=== PATIENT | male | born 1945 | race Caucasian/White ===

== ENCOUNTER 2016-12-28 11:35 | Inpatient (IN) | payer OTHER, MEDICARE ==
[~2016-12-28] VITALS: Ht 167.6 cm; Wt 104.0 kg
[2016-12-28] VITALS (11 sets, daily range): BP systolic 95–132; BP diastolic 10–64; PULSE 75–102; RESP 10–20; TEMP 98.9–99.8; O2SAT 91–100
[~2016-12-28 11:35] MED LIST: ALLO100T PO; ATOR40TA PO; BUME1TAB PO; CARV6.25 PO; DIOV320T PO; K-TA10TA5 PO; LACTATED RINGER'S 1000 ML INJ 2,000 ML IV ONE; MINO10 PO; NOVO7030P2 SQ; ONDANSETRON HCL 4 MG/2 ML VIAL IV PUSH ONE; PHENYLEPH/NS 1000 MCG/10 ML SYR IV ONE; PROPOFOL 200 MG/20 ML AMP IV ONE; RANI150 PO; VITA100020 IM; ePHEDrine/NS 25 MG/5 ML SYR IV ONE
[2016-12-28] MEDS ORDERED: CARV25TA PO (12:17)
[2016-12-28] MEDS ORDERED: VALS1TAB70 PO (12:17)
[2016-12-28] MEDS ORDERED: OMEP20TA PO (12:17)
[2016-12-28] MEDS ORDERED: FURO40TA PO (12:17)
[2016-12-28] MEDS ORDERED: ALBI1INJ2 SQ (12:17)
[2016-12-28] MEDS ORDERED: CYAN1000P IM (12:17)
[2016-12-28] MEDS ORDERED: ALLO100T PO (12:17)
[2016-12-28] MEDS ORDERED: ATOR40TA16 PO (12:17)
[2016-12-28] MEDS ORDERED: SPIR25TA PO (12:17)
[2016-12-28] MEDS ORDERED: SODIUM CHLOR 0.9% 1000 ML INJ 1,000 ML IV SCH (12:37)
[2016-12-28] MEDS ORDERED: SODIUM CHLORIDE 0.9% FLUSH 10 ML FLUSH IV FLUSH PRN (12:45)
[2016-12-28 12:57] LABS: AUTOMATED NEUTROPHIL # 15.1 TH/MM3 (1.8-7.7); HEMATOCRIT 35.4 % (39.0-51.0); HEMO FLAGS DIFF FINAL; LYMPH % 5.1 % (9.0-44.0); LYMPHOCYTE # 0.9 TH/MM3 (1.0-4.8); MEAN CELL VOLUME 85.6 FL (80.0-100.0); MEAN CORPUSCULAR HEMOGLOBIN 28.1 PG (27.0-34.0); MEAN CORPUSCULAR HGB CONC 32.9 % (32.0-36.0); MONO % 6.9 % (0.0-8.0); PLATELET COUNT 133 TH/MM3 (150-450); RED BLOOD COUNT 4.14 MIL/MM3 (4.50-5.90); RED CELL DISTRIBUTION WIDTH 17.2 % (11.6-17.2); WHITE BLOOD COUNT 17.2 TH/MM3 (4.0-11.0)
[2016-12-28] MEDS ORDERED: AMPICILLIN-SULBACTAM INJ 3 GM in SODIUM CHLORIDE 0.9% INJ 100 ML IV ONE (13:00)
[2016-12-28] MEDS: SODIUM CHLOR 0.9% 1000 ML INJ 1,000 ML IV ONE ×2 (13:00→15:37)
[2016-12-28] MEDS ORDERED: CLINDAMYCIN PHOS 900 MG/6 ML VIAL IM ONE (13:00)
[2016-12-28 13:03] LABS: APTT (PATIENT) 30.1 SEC (24.3-30.1); INTERNATIONAL NORMALIZED RATIO 1.1 RATIO; PROTHROMBIN TIME - PATIENT 11.9 SEC (9.8-11.6)
[2016-12-28 13:26] LABS: ANION GAP 11 MEQ/L (5-15); AST (GOT) 27 U/L (15-37); BICARBONATE 29.6 MEQ/L (21.0-32.0); BLOOD UREA NITROGEN 56 MG/DL (7-18); CHLORIDE 95 MEQ/L (98-107); GLOMERULAR FILTRATION RATE 17 ML/MIN (>89); POTASSIUM 3.9 MEQ/L (3.5-5.1); SODIUM (NA) 136 MEQ/L (136-145)
[2016-12-28 13:29] LABS: ALKALINE PHOSPHATASE 132 U/L (45-117); ALT (GPT) 20 U/L (12-78); TOTAL BILIRUBIN ADULT 0.8 MG/DL (0.2-1.0)
[2016-12-28 13:43] LABS: BACTERIA, URINE RARE /hpf; BLOOD, URINE TRACE (NEG); COMMENT (UR) CULTURE INDICATED; CULTURE IF INDICATED CULTURE INDICATED; GLUCOSE,URINE NEG (NEG); HYALINE CAST, URINE 165 /lpf (RARE); KETONE, URINE NEG (NEG); MUCUS URINE FEW /lpf (OCC); NITRITE,URINE NEG (NEG); SQUAMOUS EPITHELIAL CELL URINE 9 /hpf (0-5); URINE COLOR DARK-YELLOW (YELLW/STRAW)
[2016-12-28] MEDS ORDERED: SODIUM CHLOR 0.9% 1000 ML INJ 1,000 ML IV ONE (14:30)
--- NOTE | 2016-12-28 15:04 | RADRPT ---
EXAM DATE/TIME: 12/28/2016 14:05 [facility] COMPARISON: No previous studies available for comparison. INDICATIONS : Swelling and pain in bilateral testicles. MEDICAL HISTORY : Congestive heart failure. Hypercholesterolemia. Neuropathy. Myocardial infarction. Coronary artery di sease. Hypertension. BPH. Gout. SURGICAL HISTORY : CABG Pacemaker.Coronary stent. ENCOUNTER: Initial ACUITY: 1 day PAIN SCORE: 5/10 LOCATION: Bilateral testicles. MEASUREMENTS: RIGHT TESTICLE: 3.8 x 3.4 x 3.6cm LEFT TESTICLE: 3.9 x 3.1 x 2.8cm FINDINGS: There is extensive edema of the scrotal wall, thickened up to 1.8 cm on the right and 2.4 cm on the l eft. There are 2 complex small cystic lesions in the right testicle each measuring about 5 mm in maximal d iameter. No solid mass identified. Positive testicular blood flow bilaterally. No left-sided testicul ar lesions. Epididymis is mildly enlarged bilaterally. Small complex left hydrocele. CONCLUSION: 1. Marked thickening of the scrotal wall, up to 2.4 cm on the right. 2. Small complex left hydrocele. 3. Small complex cysts right testicle. Positive testicular blood flow. Nael Scott MD on December 28, 2016 at 15:00 Board Certified Radiologist. This report was verified electronically.
--- NOTE | 2016-12-28 15:12 | PD ---
HPI Chief Complaint: Allergic/Adverse Reaction Time Seen by Provider: 12:22 Travel History International Travel<30 days: No Contact w/Intl Traveler<30days: No Traveled to known affect area: No History of Present Illness HPI Patient 71-year-old male presents emergency department for evaluation of testicle swelling. Patient states approximately 10 days ago he started on new medicine for his blood pressure which she states is Aldactone. Patient states she's also noted his blood sugar has been minimally more elevated. States usually runs between 130 and 140 and has been running in the 190s. Denies any fevers. States his been feeling generally weak as well. Denies abdominal pain nausea vomiting or diarrhea. He thought the scrotal swelling was from the Aldactone and came into the emergency department to be evaluated. PFSH Past Medical History Depression: Yes Cardiac Catheterization: Yes Cardiovascular Problems: Yes High Cholesterol: Yes Congestive Heart Failure: Yes Coronary Artery Disease: Yes Diabetes: Yes Patient Takes Glucophage: No Endocrine: Yes Gout: Yes Genitourinary: Yes (BPH) Hypertension: Yes Immune Disorder: No Musculoskeletal: No Neurologic: Yes (NEUROPATHY) Psychiatric: Yes (PTSD) Reproductive: No Respiratory: Yes Myocardial Infarction: Yes Influenza Vaccination: No Past Surgical History Cardiac Surgery: Yes (Cabg 13yrs ago) Coronary Artery Bypass Graft: Yes (QUAD) Coronary Stent: Yes Ear Surgery: No Endocrine Surgery: No Eye Surgery: No Genitourinary Surgery: No Gynecologic Surgery: No Oral Surgery: No Pacemaker: Yes Thoracic Surgery: No Other Surgery: Yes (pacemaker/ defib) Social History Alcohol Use: No Tobacco Use: Yes (12/07 PPD) Substance Use: No Allergies-Medications (Allergen,Severity, Reaction): Coded Allergies: No Known Allergies (Verified , 12/28/16) Reported Meds & Prescriptions Reported Meds & Active Scripts Active Reported Valsartan 320 Mg Tab 320 Mg PO DAILY Omeprazole 20 Mg Tab 20 Mg PO DAILY Furosemide 40 Mg Tab 60 Mg PO BID Cyanocobalamin Inj (Cyanocobalamin) 1,000 Mcg/Ml Inj 1,000 Mcg IM Q30D Carvedilol 25 Mg Tab 50 Mg PO BID Atorvastatin (Atorvastatin Calcium) 40 Mg Tab 40 Mg PO HS Allopurinol 100 Mg Tab 200 Mg PO DAILY Tanzeum 4-Pack Inj (Albiglutide) 50 Mg Pfpen 50 Mg SQ Q7D Spironolactone 25 Mg Tab 12.5 Mg PO DAILY Review of Systems Except as stated in HPI: all other systems reviewed are Neg Physical Exam Narrative GENERAL: Well-developed, well-nourished in no apparent distress. Appears nontoxic. SKIN: Warm and dry. HEAD: Atraumatic. Normocephalic. EYES: Pupils equal and round. No scleral icterus. No injection or drainage. ENT: No nasal bleeding or discharge. Mucous membranes pink and moist. NECK: Trachea midline. No JVD. CARDIOVASCULAR: Regular rate and rhythm. No murmur appreciated. RESPIRATORY: No accessory muscle use. Clear to auscultation. Breath sounds equal bilaterally. GASTROINTESTINAL: Abdomen soft, non-tender, nondistended. Hepatic and splenic margins not palpable. GENITOURINARY: Is fairly modest amount of swelling around the scrotum could be consistent with edema. There is some erythema overlying the scrotum and may be consistent with abscess. There is some cellulitis and erythema surrounding the perineum as well as on the right gluteus. Patient does state he has an abscess in this area but no discrete area of fluctuance is felt. No open wounds or sites of drainage seen. 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 MUSCULOSKELETAL: No obvious deformities. No clubbing. No cyanosis. No edema. NEUROLOGICAL: Awake and alert. No obvious cranial nerve deficits. Motor grossly within normal limits. Normal speech. PSYCHIATRIC: Appropriate mood and affect; insight and judgment normal. Data Data Last Documented VS Vital Signs Date Time Temp Pulse Resp B/P Pulse Ox O2 Delivery O2 Flow Rate FiO2 12/28/16 15:52 99 16 125/64 92 Room Air 12/28/16 11:37 99.8 Orders Complete Blood Count With Diff (12/28/16 12:37) Comprehensive Metabolic Panel (12/28/16 12:37) Lipase (12/28/16 12:37) Lactic Acid (12/28/16 12:37) Prothrombin Time / Inr (Pt) (12/28/16 12:37) Act Partial Throm Time (Ptt) (12/28/16 12:37) Urinalysis - C+S If Indicated (12/28/16 12:37) Iv Access Insert/Monitor (12/28/16 12:37) Ecg Monitoring (12/28/16 12:37) Oximetry (12/28/16 12:37) Sodium Chlor 0.9% 1000 Ml Inj (Ns 1000 M (12/28/16 12:37) Sodium Chloride 0.9% Flush (Ns Flush) (12/28/16 12:45) Westergren Sedimentation Rate (12/28/16 12:39) C-Reactive Protein (Crp) (12/28/16 12:39) Blood Culture (12/28/16 12:40) Ampicillin-Sulbactam Inj (Unasyn Inj) (12/28/16 13:00) Clindamycin Inj (Cleocin Inj) (12/28/16 13:00) Sodium Chlor 0.9% 1000 Ml Inj (Ns 1000 M (12/28/16 13:00) Us Testicles W Doppler (12/28/16 12:46) Urine Culture (12/28/16 13:15) Ct Abd/Pel W/O Iv Contrast (12/28/16 12:37) Sodium Chlor 0.9% 1000 Ml Inj (Ns 1000 M (12/28/16 14:30) Consult Urology (12/28/16 ) (Hub Use Only)Inp Phy Cons/Ref (12/28/16 15:40) Clindamycin Inj (Cleocin Inj) (12/28/16 16:00) Electrocardiogram (12/28/16 ) Consult General Surgery (12/28/16 ) ^ Consent (12/28/16 16:27) (Hub Use Only)Inp Phy Cons/Ref (12/28/16 ) Type And Screen (12/28/16 16:40) Admit Order (Ed Use Only) (12/28/16 ) Vancomycin Inj (Vancomycin Inj) (12/28/16 16:45) Labs Laboratory Tests Test 12/28/16 12/28/16 12/28/16 12:40 12:42 13:15 White Blood Count 17.2 TH/MM3 Red Blood Count 4.14 MIL/MM3 Hemoglobin 11.6 GM/DL Hematocrit 35.4 % Mean Corpuscular Volume 85.6 FL Mean Corpuscular Hemoglobin 28.1 PG Mean Corpuscular Hemoglobin 32.9 % Concent Red Cell Distribution Width 17.2 % Platelet Count 133 TH/MM3 Mean Platelet Volume 9.3 FL Neutrophils (%) (Auto) 88.0 % Lymphocytes (%) (Auto) 5.1 % Monocytes (%) (Auto) 6.9 % Eosinophils (%) (Auto) 0.0 % Basophils (%) (Auto) 0.0 % Neutrophils # (Auto) 15.1 TH/MM3 Lymphocytes # (Auto) 0.9 TH/MM3 Monocytes # (Auto) 1.2 TH/MM3 Eosinophils # (Auto) 0.0 TH/MM3 Basophils # (Auto) 0.0 TH/MM3 CBC Comment DIFF FINAL Differential Comment Erythrocyte Sedimentation Rate 67 mm/hr Prothrombin Time 11.9 SEC Prothromb Time International 1.1 RATIO Ratio Activated Partial 30.1 SEC Thromboplast Time Sodium Level 136 MEQ/L Potassium Level 3.9 MEQ/L Chloride Level 95 MEQ/L Carbon Dioxide Level 29.6 MEQ/L Anion Gap 11 MEQ/L Blood Urea Nitrogen 56 MG/DL Creatinine 3.62 MG/DL Estimat Glomerular Filtration 17 ML/MIN Rate Random Glucose 187 MG/DL Calcium Level 8.6 MG/DL Total Bilirubin 0.8 MG/DL Aspartate Amino Transf 27 U/L (AST/SGOT) Alanine Aminotransferase 20 U/L (ALT/SGPT) Alkaline Phosphatase 132 U/L C-Reactive Protein 33.00 MG/DL Total Protein 7.1 GM/DL Albumin 2.6 GM/DL Lipase 60 U/L Lactic Acid Level 2.0 mmol/L Urine Color DARK-YELLOW Urine Turbidity HAZY Urine pH 5.0 Urine Specific [place] 1.019 Urine Protein 30 mg/dL Urine Glucose (UA) NEG mg/dL Urine Ketones NEG mg/dL Urine Occult Blood TRACE Urine Nitrite NEG Urine Bilirubin NEG Urine Urobilinogen 2.0 MG/DL Urine Leukocyte Esterase SMALL Urine RBC 9 /hpf Urine WBC 22 /hpf Urine WBC Clumps FEW Urine Squamous Epithelial 9 /hpf Cells Urine Bacteria RARE /hpf Urine Hyaline Casts 165 /lpf Urine Mucus FEW /lpf Urine Sperm FEW Microscopic Urinalysis Comment CULTURE INDICATED MDM Medical Decision Making Medical Screen Exam Complete: Yes Emergency Medical Condition: Yes Interpretation(s) EKG shows age fibrillation with a normal axis and normal R-wave progression. No concerning ST-T changes. Intervals otherwise within normal limits. Is an abnormal EKG. Differential Diagnosis Becca's, abscess, cellulitis, sepsis. Narrative Course Patient was roomed in the emergency department, orders given for Unasyn clindamycin as well as 2 L normal saline. Patient's lactic acid is 2.0. His vital signs of been stable while in the emergency department however there is some hypoxia than the patient is a heavy smoker. Does not appear to be DKA, appears to be in sepsis. 2 L normal saline is ordered for the time being this is lactic acid is normal patient has gone to CT scan with a noncontrast CT scan given that he has a creatinine in excess of 3. This does reveal gas pockets in the perineum. Dr. Ling was consult as well as Dr. Alfred Tapia. The plan is to go to the operating room for debridement and either to the ICU or to the floor depending on surgical findings. Patient was reassessed several times by me and the abscess and edema do not appear to be progressing. Critical Care Narrative Aggregate critical care time was 35] minutes. Time to perform other separately billable procedures was not included in the critical care time. My time did not include minutes spent treating any other patients simultaneously or on activities that did not directly contribute to the patient's treatment. The services I provided to this patient were to treat and/or prevent clinically significant deterioration that could result in: , disability, organ failure, removal of sexual organs.. I provided critical care services requiring my management, as noted below: Chart data review, documentation time, medication orders and management, vital sign assessments/reviewing monitor data, ordering and reviewing lab tests, ordering and interpreting/reviewing x-rays and diagnostic studies, care of the patient and discussion of the patient with the admitting physicians. Diagnosis Primary Impression: Necrotizing fasciitis Additional Impressions: Becca gangrene Sepsis Admitting Information Admitting Physician Requests: Admit Patient Instructions: General Instructions Departure Forms: Tests/Procedures Condition: Serious Jeffrey Carrera MD Dec 28, 2016 15:12
--- NOTE | 2016-12-28 15:34 | RADRPT ---
EXAM DATE/TIME: 12/28/2016 14:52 [facility] COMPARISON: No previous studies available for comparison. INDICATIONS : Scrotum pain and swelling for two days. ORAL CONTRAST: No oral contrast ingested. RADIATION DOSE: 6.09 CTDIvol (mGy) MEDICAL HISTORY : Hypertension. diabetes SURGICAL HISTORY : CABG Pacemaker. ENCOUNTER: Initial ACUITY: 2 days PAIN SCALE: 7/10 LOCATION: Bilateral scrotum TECHNIQUE: Volumetric scanning of the abdomen and pelvis was performed. Using automated exposure control and ad justment of the mA and/or kV according to patient size, radiation dose was kept as low as reasonably achievable to obtain optimal diagnostic quality images. FINDINGS: Within the perineal region and extending into the posterior scrotum and right medial gluteal region a re multiple collections of subcutaneous air. These findings are associated with extensive scrotal wal l thickening and are most characteristic of Becca's gangrene. Lung bases are clear except for minimal basilar atelectasis. No pleural or pericardial effusion. Pace r lead tip in right ventricle. Previous median sternotomy. No acute findings in the liver, spleen, adrenals, kidneys or pancreas. No calcified gallstones or vinay iary ductal dilatation. There is a mild ileus. No obstruction. There is a 5.7 cm fat-containing umbilical hernia. Atherosclerotic changes noted in the aorta and branches without aneurysm. There is mild anasarca. The re is marked scrotal wall edema bilaterally. Mildly enlarged inguinal lymph nodes present measuring u p to 1.9 cm on the left and 1.4 cm on the right. CONCLUSION: 1. 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 2. Mild bilateral inguinal adenopathy and marked scrotal wall thickening. 3. Fat-containing 5.7 cm umbilical hernia. 4. Atherosclerotic aorta with some displaced intimal calcifications but without significant aneurysm. No bowel obstruction. Mild ileus. Nael Scott MD on December 28, 2016 at 15:24 Board Certified Radiologist. This report was verified electronically.
[2016-12-28] MEDS ORDERED: CLINDAMYCIN INJ 900 MG in SODIUM CHLORIDE 0.9% INJ 100 ML IV ONE (16:00)
[2016-12-28] MEDS ORDERED: VANCOMYCIN HCL 1000 MG VIAL ONE (16:45)
--- NOTE | 2016-12-28 17:51 | PD.CONS ---
[facility] Service Urology Consult Requested By Primary Care Physician Malcolm [facility] Diagnosis: History of Present Illness 71-year-old male who presents with a 2-3 day history of increased scrotal swelling with erythema, redness and low-grade temp. He felt that he may have seen some drainage from this area within the last 2 days. He is a diabetic and states his blood sugars have been elevated from the 120 range to 190 range and he has not been feeling his usual state. He notes a decrease in his urine output over this time as well as a decrease in by mouth intake. His creatinine on admission is 3.6. CT scan performed in the emergency room demonstrated air with what appeared to be abscess formation in the perineal region extending from the base of the scrotum to the right perirectal region. He denies any history of Crohn's disease. Review of Systems Constitutional: COMPLAINS OF: Fever Endocrine: DENIES: Heat/cold intolerance Eyes: DENIES: Blurred vision Ears, nose, mouth, throat: DENIES: Tinnitus Respiratory: DENIES: Apneas Cardiovascular: DENIES: Chest pain Gastrointestinal: DENIES: Abdominal pain Genitourinary: COMPLAINS OF: Sexual dysfunction Musculoskeletal: DENIES: Joint pain Integumentary: DENIES: Abnormal pigmentation Hematologic/lymphatic: DENIES: Bruising Immunologic/allergic: DENIES: Eczema Past Family Social History Past Medical History Heart disease Hypertension Diabetes Posttraumatic stress disorder CHF BPH Hyperlipidemia Depression Past Surgical History CABG Pacemaker Cardiac stent insertion Allergies: Coded Allergies: No Known Allergies (Verified , 12/28/16) Family History Denies family history of prostate cancer Social History Currently smoking three quarters of a pack per day for many years Physical Exam Vital Signs Date Time Temp Pulse Resp B/P Pulse Ox O2 Delivery O2 Flow Rate FiO2 12/28/16 15:52 99 16 125/64 92 Room Air 12/28/16 15:44 102 18 125/64 91 Nasal Cannula 2 12/28/16 12:27 82 18 131/60 95 Room Air 12/28/16 11:37 99.8 90 20 132/63 91 Room Air Physical Exam GENERAL: This is a well-nourished, well-developed patient, in no apparent distress. SKIN: No rashes, ecchymoses or lesions. Cool and dry. HEAD: Atraumatic. Normocephalic. No temporal or scalp tenderness. EYES: Pupils equal round and reactive. Extraocular motions intact. No scleral icterus. No injection or drainage. ENT: Nose without bleeding, purulent drainage or septal hematoma. Throat without erythema, tonsillar hypertrophy or exudate. Uvula midline. Airway patent. NECK: Trachea midline. No JVD or lymphadenopathy. Supple, nontender, no meningeal signs. CARDIOVASCULAR: Regular rate and rhythm without murmurs, gallops, or rubs. RESPIRATORY: Clear to auscultation. Breath sounds equal bilaterally. No wheezes , rales, or rhonchi. GASTROINTESTINAL: Abdomen soft, non-tender, nondistended. No hepato-splenomegaly , or palpable masses. No guarding. GENITOURINARY: Scrotal edema with erythema. Erythema with fluctuance involving the perineum as well as the right buttock region. MUSCULOSKELETAL: Extremities without clubbing, cyanosis, or edema. No joint tenderness, effusion, or edema noted. No calf tenderness. Negative Homans sign bilaterally. NEUROLOGICAL: Awake and alert. Cranial nerves II through XII intact. Motor and sensory grossly within normal limits. Five out of 5 muscle strength in all muscle groups. Normal speech. Laboratory Tests Test 12/28/16 12/28/16 12/28/16 12:40 12:42 13:15 White Blood Count 17.2 Red Blood Count 4.14 Hemoglobin 11.6 Hematocrit 35.4 Mean Corpuscular Volume 85.6 Mean Corpuscular Hemoglobin 28.1 Mean Corpuscular Hemoglobin 32.9 Concent Red Cell Distribution Width 17.2 Platelet Count 133 Mean Platelet Volume 9.3 Neutrophils (%) (Auto) 88.0 Lymphocytes (%) (Auto) 5.1 Monocytes (%) (Auto) 6.9 Eosinophils (%) (Auto) 0.0 Basophils (%) (Auto) 0.0 Neutrophils # (Auto) 15.1 Lymphocytes # (Auto) 0.9 Monocytes # (Auto) 1.2 Eosinophils # (Auto) 0.0 Basophils # (Auto) 0.0 CBC Comment DIFF FINAL Differential Comment Erythrocyte Sedimentation Rate 67 Prothrombin Time 11.9 Prothromb Time International 1.1 Ratio Activated Partial 30.1 Thromboplast Time Sodium Level 136 Potassium Level 3.9 Chloride Level 95 Carbon Dioxide Level 29.6 Anion Gap 11 Blood Urea Nitrogen 56 Creatinine 3.62 Estimat Glomerular Filtration 17 Rate Random Glucose 187 Calcium Level 8.6 Total Bilirubin 0.8 Aspartate Amino Transf 27 (AST/SGOT) Alanine Aminotransferase 20 (ALT/SGPT) Alkaline Phosphatase 132 C-Reactive Protein 33.00 Total Protein 7.1 Albumin 2.6 Lipase 60 Lactic Acid Level 2.0 Urine Color DARK-YELLOW Urine Turbidity HAZY Urine pH 5.0 Urine Specific [place] 1.019 Urine Protein 30 Urine Glucose (UA) NEG Urine Ketones NEG Urine Occult Blood TRACE Urine Nitrite NEG Urine Bilirubin NEG Urine Urobilinogen 2.0 Urine Leukocyte Esterase SMALL Urine RBC 9 Urine WBC 22 Urine WBC Clumps FEW Urine Squamous Epithelial 9 Cells Urine Bacteria RARE Urine Hyaline Casts 165 Urine Mucus FEW Urine Sperm FEW Microscopic Urinalysis Comment CULTURE INDICATED Date/Time Procedure Status Source Growth 12/28/16 13:15 Urine Culture Received Urine Random Urine Pending 12/28/16 12:50 Aerobic Blood Culture Received Blood Peripheral Pending 12/28/16 12:50 Anaerobic Blood Culture Received Blood Peripheral Pending Result Diagram: 12/28/16 1240 12/28/16 1240 Imaging Last Impressions Scrotum Ultrasound 12/28/16 1246 Signed Impressions: Service Date/Time: Wednesday, December 28, 2016 14:05 - CONCLUSION: 1. Marked thickening of the scrotal wall, up to 2.4 cm on the right. 2. Small complex left hydrocele. 3. Small complex cysts right testicle. Positive testicular blood flow. Nael Scott MD Abdomen/Pelvis CT 12/28/16 1237 Signed Impressions: Service Date/Time: Wednesday, December 28, 2016 14:52 - CONCLUSION: 1. 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 2. Mild bilateral inguinal adenopathy and marked scrotal wall thickening. 3. Fat-containing 5.7 cm umbilical hernia. 4. Atherosclerotic aorta with some displaced intimal calcifications but without significant aneurysm. No bowel obstruction. Mild ileus. Nael Scott MD Assessment and Plan Assessment and Plan 71-year-old male with perineal/rectal abscess; 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 Patient will require IR intervention for debridement with washout. Risk and benefits discussed and patient is willing to proceed. Tim Ling DO Dec 28, 2016 17:51
[2016-12-28] MEDS ORDERED: LIDOCAINE 1%/EPINEPHrine 1:100,000 SOLN 20 ML VIAL ONE (18:41)
[2016-12-28] MEDS ORDERED: PROPOFOL 1000 MG/100 ML INJ 100 ML ONE (19:10)
[2016-12-28 19:31] LABS: BLOOD GAS BASE EXCESS 0.4 mmol/L (-2-2); BLOOD GAS CARBOXYHEMOGLOBIN 2.1 % (0-4); BLOOD GAS HCO3 24 mmol/L (22-26); BLOOD GAS METHEMOGLOBIN 1.1 % (0-2); BLOOD GAS O2 HGB SATURATION 96 % (90-100); BLOOD GAS OXYGEN CONTENT 13.3 Vol % (12.0-20.0); BLOOD GAS PCO2 35 mmHg (38-42); BLOOD GAS PO2 233 mmHg (61-120); BLOOD GAS TOTAL HGB 9.4 G/DL (12.0-16.0); TEMP CORR TO 98.6
[2016-12-28 19:32] LABS: CRITICAL VALUE NO; DRAW SITE ALINE; FIO2 50 %; OXYGEN DEVICE VENTILATOR; STAT NO; ULNAR PULSE PRESENT; VENT SETTINGS OR VENT
--- NOTE | 2016-12-28 19:40 | PD.OP ---
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 Alfred tapia Operation and Findings: Mr. Danilo Mandel is a 71-year-old male who had approximate five-day onset of scrotal swelling with erythema to the region of the perineum and right buttock region. CT scan performed in the emergency room demonstrated air in the posterior scrotal region and perineum and right buttock region. Patient has a complex medical history including heart disease diabetes hypertension and hyperlipidemia with CHF and was in acute renal failure with a creatinine of 3.6. Decision was made to take the patient to the operating room to undergo incision and drainage of possible perineal abscess with debridement of necrotic tissue. Gen. surgery was consult preoperatively due to air tracking along the right perirectal region. Patient was brought to the operative myself as Danilo Mandel. He is placed in dorsal lithotomy position, prepped and draped in usual sterile fashion, received preprocedure antibiotics and general endotracheal tube anesthesia was administered. A 16 Romanian Capps was placed. A 15 blade was used to make the opening incision extending from the posterior scrotal region along the perineum. With deeper dissection along the left posterior scrotal region necrotic tissue was encountered. This was debrided using the 15 blade as well as Metzenbaum scissors. The necrotic tissue continue to track down in the perineal region overlying the urethra. Careful dissection was performed at this point to remove all necrotic tissue as it extended posteriorly towards the rectal region and tracked along the right perirectal tissue area. Dissection continued with the 15 blade as well as Metzenbaum scissors and the use of a curet. All the necrotic tissue was removed from this area and sent to pathology. Tissue cultures will be performed as well as antimicrobial culture. At one point during the case, Dr. Tapia digitalized the patient to confirm anatomical position of the rectum. The rectum remained intact and was not violated. Once all the necrotic tissue was removed, hemostasis was obtained. Antibiotic soaked Lesly was then placed into the area of the wound site and interrupted nylon sutures were used to close the wound. The patient remained intubated and was transferred to the SICU. He will need to go back in 48 hours for another washout. Tim Ling DO Dec 28, 2016 19:40
[2016-12-28] MEDS ORDERED: LACTATED RINGER'S 1000 ML INJ 1,000 ML IV SCH (19:45)
[2016-12-28] MEDS ORDERED: AMPICILLIN-SULBACTAM INJ 1,500 MG VIAL IM SCH (19:45)
[2016-12-28] MEDS ORDERED: ONDANSETRON HCL 4 MG/2 ML VIAL IV PUSH PRN (19:45)
[2016-12-28] MEDS: AMPICILLIN/SULBAC 1500 MG/NS 100 ML IV SCH ×2 (20:00)
[2016-12-28] MEDS ORDERED: PROPOFOL 1000 MG/100 ML IV SCH (20:00)
[2016-12-28] MEDS ORDERED: CLINDAMYCIN INJ 600 MG in SODIUM CHLORIDE 0.9% INJ 100 ML IV SCH (20:00)
[2016-12-28] MEDS ORDERED: CHLORHEXIDINE GLUCONATE 2 % 1 PACK (2 CLOTHS) TOP PRN (20:15)
[2016-12-28] MEDS ORDERED: SODIUM CHLORIDE 0.9% FLUSH 10 ML FLUSH PRN (20:15)
[2016-12-28] MEDS ORDERED: ONDANSETRON HCL 4 MG/2 ML VIAL IV PRN (20:15)
[2016-12-28] MEDS ORDERED: fentaNYL DRIP 250 ML IV SCH (20:15)
[2016-12-28] MEDS ORDERED: METOCLOPRAMIDE HCL 10 MG/2 ML VIAL IV PRN (20:15)
[2016-12-28] MEDS ORDERED: LORazepam 2 MG/ML VIAL IV PRN (20:15)
[2016-12-28] MEDS ORDERED: PROPOFOL 1000 MG/100 ML INJ 100 ML IV SCH (20:15)
[2016-12-28] MEDS ORDERED: MISCELLANEOUS NURSING INFORMATION XX SCH (20:15)
[2016-12-28] MEDS ORDERED: ALBUMIN HUMAN 5% 25 GM/500 ML BOTTLE IV ONE (20:15)
[2016-12-28] MEDS ORDERED: MORPHINE SULFATE 4 MG/ML INJ IV PRN (20:15)
[2016-12-28] MEDS: SODIUM CHLORIDE 0.9% FLUSH 10 ML FLUSH SCH (20:30)
[2016-12-28] MEDS ORDERED: DO NOT ADM ANY ANTICOAGULANT DRUGS XX PRN (20:45)
--- NOTE | 2016-12-28 20:47 | HHI.HP ---
HPI Service Critical Care Medicine Primary Care Physician [facility] Admission Diagnosis Nec Fasc Diagnosis: Travel History International Travel<30 Days: No Contact w/Intl Traveler <30 Da: No Traveled to Known Affected Are: No History of Present Illness 71-year-old male presents for evaluation of testicular swelling. Approximately 10 days ago he was started on Aldactone for his blood pressure which. He also noted that her sugars has been slightly elevated. Denies any fevers. He has been feeling generally weak as well. Denied abdominal pain nausea vomiting or diarrhea. He thought the scrotal swelling was from the Aldactone and came into the emergency department to be evaluated. 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 Review of Systems ROS Unable to obtain patient is sedated and intubated Past Family Social History Allergies: Coded Allergies: No Known Allergies (Verified , 12/28/16) Past Medical History Hypertension Diabetes mellitus Dyslipidemia Obesity Chronic tobacco use disorder Coronary artery disease status post CABG Chronic kidney disease CHF with EF 40% BPH Gout Past Surgical History CABG Coronary artery angiogram Reported Medications Reported Meds & Active Scripts Active Reported Valsartan 320 Mg Tab 320 Mg PO DAILY Omeprazole 20 Mg Tab 20 Mg PO DAILY Furosemide 40 Mg Tab 60 Mg PO BID Cyanocobalamin Inj (Cyanocobalamin) 1,000 Mcg/Ml Inj 1,000 Mcg IM Q30D Carvedilol 25 Mg Tab 50 Mg PO BID Atorvastatin (Atorvastatin Calcium) 40 Mg Tab 40 Mg PO HS Allopurinol 100 Mg Tab 200 Mg PO DAILY Tanzeum 4-Pack Inj (Albiglutide) 50 Mg Pfpen 50 Mg SQ Q7D Spironolactone 25 Mg Tab 12.5 Mg PO DAILY Active Ordered Medications Current Medications Medications (Trade) Dose Ordered Sig/Abdiel Route PRN Reason Start Time Stop Time Status Last Admin Dose Admin Ampicillin Sodium/ Sulbactam Sodium 1500 mg/Sodium Chloride 100 ml @ 200 mls/hr Q6H IV 12/28/16 20:00 Sodium Chloride (NS 1000 ml Inj) 1,000 ml @ 125 mls/hr Q8H IV 12/28/16 21:00 Sodium Chloride (NS Flush) 2 ml UNSCH PRN .XX FLUSH AFTER USING IV ACCESS 12/28/16 20:15 Sodium Chloride (NS Flush) 2 ml BID .XX 12/28/16 21:00 12/28/16 20:30 Acetaminophen (Tylenol) 650 mg Q6H PRN PO PAIN 1-10 AND/OR FEVER >101F 12/28/16 20:15 Morphine Sulfate (Morphine Inj) 2 mg Q2H PRN IV SEE LABEL COMMENTS 12/28/16 20:15 Famotidine (Pepcid Inj) 10 mg Q12HR IV PUSH 12/28/16 21:00 Lorazepam (Ativan Inj) 1 mg Q1H PRN IV Agitation/Sedation 12/28/16 20:15 Artificial Tears (Tears Naturale Opth Soln) 1 drop TID EACH EYE 12/29/16 09:00 Ondansetron HCl (Zofran Inj) 4 mg Q6H PRN IV NAUSEA OR VOMITING 12/28/16 20:15 Metoclopramide HCl (Reglan Inj) 5 mg Q6H PRN IV NAUSEA OR VOMITING 12/28/16 20:15 Docusate Sodium (Colace Liq) 100 mg Q12H G-TUBE 12/28/16 21:00 Heparin Sodium (Porcine) (Heparin Inj) 5,000 units Q8H SQ 12/28/16 22:00 Miscellaneous Information 1 Q361D XX 12/28/16 20:15 Chlorhexidine Gluconate (Chlorhexidine 2% Cloth) 3 pack Taper DAILY@04 TOP 12/29/16 04:00 12/25/17 03:59 Chlorhexidine Gluconate 3 pack 3 pack UNSCH PRN TOP HYGIENIC CARE 12/28/16 20:15 Propofol 100 ml @ 0 mls/hr TITRATE IV 12/28/16 20:15 Fentanyl Citrate 250 ml @ 0 mls/hr TITRATE IV 12/28/16 20:15 Clindamycin Phosphate/Sodium Chloride (Cleocin Inj/NS Inj) 104 ml @ 208 mls/hr Q8H IV 12/29/16 00:00 Miscellaneous Information ALL NURSING DEPARTME... UNSCH PRN XX SEE LABEL COMMENTS 12/28/16 20:45 12/29/16 20:44 Meropenem/Sodium Chloride (Merrem Inj/NS Inj) 100 ml @ 200 mls/hr Q12H IV 12/28/16 22:00 Family History Noncontributory Social History Per chart from 2014 smokes about a pack a day. Denies any alcohol abuse or drug abuse. Physical Exam Vital Signs Vital Signs Date Time Temp Pulse Resp B/P Pulse Ox O2 Delivery O2 Flow Rate FiO2 12/28/16 19:45 99 50 12/28/16 15:52 99 16 125/64 92 Room Air 12/28/16 15:44 102 18 125/64 91 Nasal Cannula 2 12/28/16 12:27 82 18 131/60 95 Room Air 12/28/16 11:37 99.8 90 20 132/63 91 Room Air Physical Exam GENERAL: Obese sedated and intubated in gentleman SKIN: Warm and dry. HEAD: Normocephalic. EYES: No scleral icterus. No injection or drainage. NECK: Supple, trachea midline. No JVD or lymphadenopathy. CARDIOVASCULAR: Regular rate and rhythm without murmurs, gallops, or rubs. RESPIRATORY: Breath sounds equal bilaterally. No accessory muscle use. GASTROINTESTINAL: Abdomen soft, non-tender, nondistended. MUSCULOSKELETAL: No cyanosis, or edema. BACK: Nontender without obvious deformity. No CVA tenderness. EXTREMITIES: No clubbing cyanosis or edema Laboratory Laboratory Tests Test 12/28/16 12/28/16 12/28/16 12/28/16 12:40 12:42 13:15 19:20 White Blood Count 17.2 Red Blood Count 4.14 Hemoglobin 11.6 Hematocrit 35.4 Mean Corpuscular Volume 85.6 Mean Corpuscular Hemoglobin 28.1 Mean Corpuscular Hemoglobin 32.9 Concent Red Cell Distribution Width 17.2 Platelet Count 133 Mean Platelet Volume 9.3 Neutrophils (%) (Auto) 88.0 Lymphocytes (%) (Auto) 5.1 Monocytes (%) (Auto) 6.9 Eosinophils (%) (Auto) 0.0 Basophils (%) (Auto) 0.0 Neutrophils # (Auto) 15.1 Lymphocytes # (Auto) 0.9 Monocytes # (Auto) 1.2 Eosinophils # (Auto) 0.0 Basophils # (Auto) 0.0 CBC Comment DIFF FINAL Differential Comment Erythrocyte Sedimentation Rate 67 Prothrombin Time 11.9 Prothromb Time International 1.1 Ratio Activated Partial 30.1 Thromboplast Time Sodium Level 136 Potassium Level 3.9 Chloride Level 95 Carbon Dioxide Level 29.6 Anion Gap 11 Blood Urea Nitrogen 56 Creatinine 3.62 Estimat Glomerular Filtration 17 Rate Random Glucose 187 Calcium Level 8.6 Total Bilirubin 0.8 Aspartate Amino Transf 27 (AST/SGOT) Alanine Aminotransferase 20 (ALT/SGPT) Alkaline Phosphatase 132 C-Reactive Protein 33.00 Total Protein 7.1 Albumin 2.6 Lipase 60 Lactic Acid Level 2.0 Urine Color DARK-YELLOW Urine Turbidity HAZY Urine pH 5.0 Urine Specific [place] 1.019 Urine Protein 30 Urine Glucose (UA) NEG Urine Ketones NEG Urine Occult Blood TRACE Urine Nitrite NEG Urine Bilirubin NEG Urine Urobilinogen 2.0 Urine Leukocyte Esterase SMALL Urine RBC 9 Urine WBC 22 Urine WBC Clumps FEW Urine Squamous Epithelial 9 Cells Urine Bacteria RARE Urine Hyaline Casts 165 Urine Mucus FEW Urine Sperm FEW Microscopic Urinalysis Comment CULTURE INDICATED Blood Gas Puncture Site KAUSHAL Blood Gas Patient Temperature 98.6 Blood Gas HCO3 24 Blood Gas Base Excess 0.4 Blood Gas Oxygen Saturation 96 Arterial Blood pH 7.45 Arterial Blood Partial 35 Pressure CO2 Arterial Blood Partial 233 Pressure O2 Arterial Blood Oxygen Content 13.3 Arterial Blood 2.1 Carboxyhemoglobin Arterial Blood Methemoglobin 1.1 Blood Gas Hemoglobin 9.4 Oxygen Delivery Device VENTILATOR Blood Gas Ventilator Setting OR VENT Blood Gas Inspired Oxygen 50 Test 12/28/16 12/28/16 12/28/16 19:31 19:32 19:36 Crossmatch Leukocyte-Reduced Red Blood Cells Blood Bank Comment Blood Type O POSITIVE O POSITIVE Antibody Screen NEGATIVE Date/Time Procedure Status Source Growth 12/28/16 18:35 Gram Stain Received Abscess Scrotum Pending 12/28/16 18:35 Wound Culture Received Abscess Scrotum Pending 12/28/16 18:35 Fungal Smear Received Abscess Scrotum Pending 12/28/16 18:35 Fungal Culture Received Abscess Scrotum Pending 12/28/16 18:35 Acid Fast Stain Received Abscess Scrotum Pending 12/28/16 18:35 Mycobacterial Culture Received Abscess Scrotum Pending 12/28/16 13:15 Urine Culture Received Urine Random Urine Pending 12/28/16 12:50 Aerobic Blood Culture Received Blood Peripheral Pending 12/28/16 12:50 Anaerobic Blood Culture Received Blood Peripheral Pending Result Diagram: 12/28/16 1240 12/28/16 1240 Imaging Last 24 hours Impressions Scrotum Ultrasound 12/28/16 1246 Signed Impressions: Service Date/Time: Wednesday, December 28, 2016 14:05 - CONCLUSION: 1. Marked thickening of the scrotal wall, up to 2.4 cm on the right. 2. Small complex left hydrocele. 3. Small complex cysts right testicle. Positive testicular blood flow. Nael Scott MD Abdomen/Pelvis CT 12/28/16 1237 Signed Impressions: Service Date/Time: Wednesday, December 28, 2016 14:52 - CONCLUSION: 1. 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 2. Mild bilateral inguinal adenopathy and marked scrotal wall thickening. 3. Fat-containing 5.7 cm umbilical hernia. 4. Atherosclerotic aorta with some displaced intimal calcifications but without significant aneurysm. No bowel obstruction. Mild ileus. 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 surgery - Antibiotics broad-spectrum meropenem and clindamycin - ID consult CHF - No exacerbation - Supportive care - Resume home medications and hemodynamically stable Diabetes - Insulin sliding scale Chronic kidney disease - Strict I's and O's - Aggressive IV fluid hydration - Monitor electrolytes and creatinine BPH - Not an issue with Capps in place DVT GI prophylaxis - Subcutaneous heparin and Pepcid Critical Care: The total critical care time was 35 minutes. Time to perform other separately billable procedures was not included in the critical care time. Facundo Amin MD Dec 28, 2016 20:47
[2016-12-28] MEDS ORDERED: PANTOPRAZOLE SODIUM 40 MG VIAL IV PUSH SCH (21:00)
[2016-12-28] MEDS ORDERED: MEROPENEM 1000 MG/NS 100 ML IV SCH ×2 (22:00)
[2016-12-28] MEDS: HEPARIN SODIUM - SQ 10,000 UNITS/ML VIAL SQ SCH (22:00)
[2016-12-28] MEDS: FAMOTIDINE 20 MG/2 ML VIAL IV PUSH SCH (22:50)
[2016-12-28] MEDS: DOCUSATE SODIUM 100 MG/10 ML UDC G-TUBE SCH (22:50)
[2016-12-28] MEDS: SODIUM CHLOR 0.9% 1000 ML INJ 1,000 ML IV SCH (22:51)
[2016-12-28] MEDS ORDERED: SODIUM CHLOR 0.9% 1000 ML INJ 999 ML IV ONE (23:30)
[2016-12-29] VITALS (16 sets, daily range): BP systolic 100–132; BP diastolic 50–91; PULSE 76–87; RESP 12–23; TEMP 97.6–98.8; O2SAT 93–100
[2016-12-29] MEDS: CLINDAMYCIN INJ 600 MG in SODIUM CHLORIDE 0.9% INJ 100 ML IV SCH ×4 (01:01→23:46)
[2016-12-29] MEDS: CHLORHEXIDINE GLUCONATE 2 % 1 PACK (2 CLOTHS) TOP SCH (02:53)
[2016-12-29] MEDS: AMPICILLIN/SULBAC 1500 MG/NS 100 ML IV SCH ×8 (02:53→20:48)
[2016-12-29 04:08] LABS: BLOOD GAS BASE EXCESS -1.7 mmol/L (-2-2); BLOOD GAS CARBOXYHEMOGLOBIN 1.8 % (0-4); BLOOD GAS HCO3 24 mmol/L (22-26); BLOOD GAS METHEMOGLOBIN 0.8 % (0-2); BLOOD GAS O2 HGB SATURATION 96 % (90-100); BLOOD GAS OXYGEN CONTENT 13.7 Vol % (12.0-20.0); BLOOD GAS PCO2 51 mmHg (38-42); BLOOD GAS PO2 170 mmHg (61-120); BLOOD GAS TOTAL HGB 9.9 G/DL (12.0-16.0); TEMP CORR TO 98.6
[2016-12-29 04:09] LABS: CRITICAL VALUE YES; DRAW SITE ALINE; FIO2 50 %; STAT NO; VENT SETTINGS PRVC 10/700/PEEP5
[2016-12-29] MEDS ORDERED: SODIUM CHLOR 0.9% 1000 ML INJ 999 ML IV ONE (05:00)
[2016-12-29] MEDS: HEPARIN SODIUM - SQ 10,000 UNITS/ML VIAL SQ SCH ×3 (05:52→20:47)
[2016-12-29] MEDS: SODIUM CHLOR 0.9% 1000 ML INJ 1,000 ML IV SCH ×3 (05:52→20:49)
[2016-12-29 06:08] LABS: ALKALINE PHOSPHATASE 82 U/L (45-117); ALT (GPT) 15 U/L (12-78); ANION GAP 9 MEQ/L (5-15); AST (GOT) 20 U/L (15-37); BICARBONATE 25.7 MEQ/L (21.0-32.0); BLOOD UREA NITROGEN 57 MG/DL (7-18); CHLORIDE 105 MEQ/L (98-107); CREATINE KINASE 173 U/L (39-308); GLOMERULAR FILTRATION RATE 18 ML/MIN (>89); MAGNESIUM 1.9 MG/DL (1.5-2.5); POTASSIUM 3.9 MEQ/L (3.5-5.1); SODIUM (NA) 140 MEQ/L (136-145); TOTAL BILIRUBIN ADULT 1.2 MG/DL (0.2-1.0)
[2016-12-29 06:11] LABS: AUTOMATED NEUTROPHIL # 11.3 TH/MM3 (1.8-7.7); BASOPHIL % 0.1 % (0.0-2.0); HEMATOCRIT 30.6 % (39.0-51.0); LYMPH % 7.5 % (9.0-44.0); MEAN CELL VOLUME 82.3 FL (80.0-100.0); MEAN CORPUSCULAR HEMOGLOBIN 27.6 PG (27.0-34.0); MEAN CORPUSCULAR HGB CONC 33.5 % (32.0-36.0); MONO % 7.5 % (0.0-8.0); NEUT % 84.9 % (16.0-70.0); PLATELET COUNT 92 TH/MM3 (150-450); RED BLOOD COUNT 3.72 MIL/MM3 (4.50-5.90); RED CELL DISTRIBUTION WIDTH 18.9 % (11.6-17.2); WHITE BLOOD COUNT 13.3 TH/MM3 (4.0-11.0)
[2016-12-29 06:27] LABS: HEMO FLAGS AUTO DIFF
[2016-12-29] MEDS ORDERED: MAGNESIUM SULFATE INJ 2 GM in SODIUM CHLORIDE 0.9% INJ 96 ML IV PRN (07:15)
[2016-12-29] MEDS ORDERED: POTASSIUM CHLOR 40 MEQ PREMIX 100 ML IV PRN ×2 (07:15)
[2016-12-29] MEDS ORDERED: Vancomycin Consult Pharmacy 1 EA OTHER SCH (07:15)
[2016-12-29] MEDS ORDERED: SODIUM PHOSPHATE INJ 30 MMOL in SODIUM CHLOR 0.9% 250 ML INJ 240 ML IV PRN (07:15)
[2016-12-29] MEDS ORDERED: POTASSIUM CHLOR 20 MEQ PREMIX 100 ML IV PRN ×2 (07:15)
[2016-12-29] MEDS ORDERED: DEXTROSE 50% IN WATER 50 ML VIAL(D50) IV PUSH PRN (07:15)
[2016-12-29] MEDS ORDERED: POTASSIUM PHOSPHATE MONOBASIC 500 MG TAB PO PRN (07:15)
[2016-12-29] MEDS ORDERED: MAGNESIUM SULFATE INJ 4 GM in SODIUM CHLORIDE 0.9% INJ 92 ML IV PRN (07:15)
[2016-12-29] MEDS ORDERED: POTASSIUM PHOSPHATE INJ 30 MMOL in SODIUM CHLOR 0.9% 250 ML INJ 250 ML IV PRN (07:15)
[2016-12-29] MEDS ORDERED: MAGNESIUM OXIDE 400 MG TAB PO PRN (07:15)
[2016-12-29] MEDS ORDERED: POTASSIUM PHOSPHATE MONOBASIC 500 MG TAB PO/TUBE PRN (07:15)
--- NOTE | 2016-12-29 07:18 | HHI.CCPN ---
Subjective Remarks/Hospital Course Hospital Course: 71-year-old male presents for evaluation of testicular swelling. Approximately 10 days ago he was started on Aldactone for his blood pressure which. He also noted that her sugars has been slightly elevated. Denies any fevers. He has been feeling generally weak as well. Denied abdominal pain nausea vomiting or diarrhea. He thought the scrotal swelling was from the Aldactone and came into the emergency department to be evaluated. 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 remains intubated overnight. off vasopressors. Objective Vital Signs Date Time Temp Pulse Resp B/P Pulse Ox O2 Delivery O2 Flow Rate FiO2 12/29/16 04:00 77 12/29/16 04:00 98.8 17 118/58 100 112/54 12/29/16 03:30 40 12/28/16 20:40 Mechanical Ventilator 12/28/16 15:44 2 Intake and Output 12/28/16 12/28/16 12/29/16 08:00 16:00 00:00 Intake Total 2500 ml Output Total 847 ml Balance 1653 ml Result Diagram: 12/29/16 0514 12/29/16 0514 Other Results Laboratory Tests Test 12/28/16 12/28/16 19:20 23:30 Blood Gas Puncture Site [facility] Blood Gas Patient Temperature 98.6 98.6 Blood Gas HCO3 24 mmol/L 24 mmol/L (22-26) (22-26) Blood Gas Base Excess 0.4 mmol/L -1.7 mmol/L (-2-2) (-2-2) Blood Gas Oxygen Saturation 96 % (90-100) 96 % (90-100) Arterial Blood pH 7.45 7.29 (7.380-7.420) (7.380-7.420) Arterial Blood Partial 35 mmHg (38-42) 51 mmHg (38-42) Pressure CO2 Arterial Blood Partial 233 mmHg 170 mmHg Pressure O2 (61-120) (61-120) Arterial Blood Oxygen Content 13.3 Vol % 13.7 Vol % (12.0-20.0) (12.0-20.0) Arterial Blood 2.1 % (0-4) 1.8 % (0-4) Carboxyhemoglobin Arterial Blood Methemoglobin 1.1 % (0-2) 0.8 % (0-2) Blood Gas Hemoglobin 9.4 G/DL 9.9 G/DL (12.0-16.0) (12.0-16.0) Oxygen Delivery Device VENTILATOR Blood Gas Ventilator Setting OR VENT PRVC 10/700/PEEP5 Blood Gas Inspired Oxygen 50 % 50 % Imaging Last 24 hours Impressions Scrotum Ultrasound 12/28/16 1246 Signed Impressions: Service Date/Time: Wednesday, December 28, 2016 14:05 - CONCLUSION: 1. Marked thickening of the scrotal wall, up to 2.4 cm on the right. 2. Small complex left hydrocele. 3. Small complex cysts right testicle. Positive testicular blood flow. Nael Scott MD Abdomen/Pelvis CT 12/28/16 1237 Signed Impressions: Service Date/Time: Wednesday, December 28, 2016 14:52 - CONCLUSION: 1. 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 2. Mild bilateral inguinal adenopathy and marked scrotal wall thickening. 3. Fat-containing 5.7 cm umbilical hernia. 4. Atherosclerotic aorta with some displaced intimal calcifications but without significant aneurysm. No bowel obstruction. Mild ileus. Nael Scott MD Objective Remarks GENERAL: Obese sedated and intubated in gentleman SKIN: Warm and dry. HEAD: Normocephalic. EYES: No scleral icterus. No injection or drainage. NECK: trachea midline. No JVD CARDIOVASCULAR: Regular rate and rhythm without murmurs RESPIRATORY: Breath sounds equal bilaterally. No accessory muscle use. PSV 40/5/ 5. GASTROINTESTINAL: Abdomen soft, non-tender, nondistended. MUSCULOSKELETAL: No cyanosis, or edema. EXTREMITIES: No clubbing cyanosis or edema : there is packing which is clean and dry in the groin. a pimentel exits the penis with clear yellow urine. 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 Clinically stable. likely stable for extubation today. Per urology, going back for repeat debridement tomorrow. Will continue clindamycin for another 24h until urology re-evaluates the wound and is confident there is no necrotic tissue remaining. Respiratory failure - currently on SBT. if he passes, will pursue extubation. 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 - add 500mg dose of vancomycin (15mg/kg loading dose of vancomycin 1.5gm and patient received 1gm yesterday). Given GFR < 20, will hold off on additional vancomycin and consult pharmacy for dosing assistance. - ID consult for long-term follow-up. - f/u cultures. CHF - No exacerbation - Supportive care - Resume home medications and hemodynamically stable Diabetes - Insulin sliding scale Acute on Chronic kidney disease - Strict I's and O's - Aggressive IV fluid hydration - Monitor electrolytes and creatinine DVT GI prophylaxis - Subcutaneous heparin and Pepcid Noe Alaniz MD Dec 29, 2016 07:18
[2016-12-29] MEDS: SODIUM CHLORIDE 0.9% FLUSH 10 ML FLUSH SCH ×2 (09:00→20:48)
[2016-12-29] MEDS: ARTIFICIAL TEARS OPTH SOLN 15 ML BTL EACH EYE SCH ×3 (09:00→18:00)
[2016-12-29] MEDS ORDERED: VANCOMYCIN INJ 500 MG in SODIUM CHLORIDE 0.9% INJ 100 ML IV ONE ×2 (09:00→10:30)
[2016-12-29] MEDS: FAMOTIDINE 20 MG/2 ML VIAL IV PUSH SCH (10:06)
[2016-12-29] MEDS: DOCUSATE SODIUM 100 MG/10 ML UDC G-TUBE SCH ×2 (10:06→20:48)
--- NOTE | 2016-12-29 10:08 | HHI.PR ---
Subjective Patient symptoms today Pt alert and awake. Seen and examined. Feeling better. Pain controlled. Objective Vital Signs Vital Signs Date Time Temp Pulse Resp B/P Pulse Ox O2 Delivery O2 Flow Rate FiO2 12/29/16 07:36 96 Nasal Cannula 4.00 12/29/16 07:36 96 Nasal Cannula 4 12/29/16 07:27 Nasal Cannula 40 12/29/16 07:27 100 40 12/29/16 04:00 77 12/29/16 04:00 98.8 77 17 118/58 100 112/54 12/29/16 03:30 100 40 12/29/16 02:00 78 12/29/16 00:27 100 40 12/29/16 00:00 76 12/29/16 00:00 98.3 79 12 124/62 100 121/62 12/28/16 23:45 96 50 12/28/16 23:00 98.9 84 10 128/62 100 12/28/16 22:00 99.0 86 10 107/54 100 12/28/16 21:30 99.1 90 10 125/55 100 12/28/16 21:15 99.1 90 10 125/55 100 12/28/16 21:15 90 12/28/16 20:46 92 50 12/28/16 20:40 75 10 113/57 100 Mechanical Ventilator 50 12/28/16 20:30 50 12/28/16 20:30 99.4 74 10 101/57 100 Mechanical Ventilator 50 102/42 12/28/16 20:15 75 10 89/51 100 Mechanical Ventilator 50 94/40 12/28/16 20:00 84 10 95/54 99 Mechanical Ventilator 50 95/40 12/28/16 19:45 98.9 81 10 102/57 99 Mechanical Ventilator 50 113/41 12/28/16 19:45 50 12/28/16 19:45 99.4 75 10 95/10 100 12/28/16 19:45 99 50 12/28/16 15:52 99 16 125/64 92 Room Air 12/28/16 15:44 102 18 125/64 91 Nasal Cannula 2 12/28/16 12:27 82 18 131/60 95 Room Air 12/28/16 11:37 99.8 90 20 132/63 91 Room Air Result Diagram: 12/29/1651312/29/16 0514 Imaging Last 24 hours Impressions Scrotum Ultrasound 12/28/16 1246 Signed Impressions: Service Date/Time: Wednesday, December 28, 2016 14:05 - CONCLUSION: 1. Marked thickening of the scrotal wall, up to 2.4 cm on the right. 2. Small complex left hydrocele. 3. Small complex cysts right testicle. Positive testicular blood flow. Nael Scott MD Abdomen/Pelvis CT 12/28/16 1237 Signed Impressions: Service Date/Time: Wednesday, December 28, 2016 14:52 - CONCLUSION: 1. 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 2. Mild bilateral inguinal adenopathy and marked scrotal wall thickening. 3. Fat-containing 5.7 cm umbilical hernia. 4. Atherosclerotic aorta with some displaced intimal calcifications but without significant aneurysm. No bowel obstruction. Mild ileus. Nael Scott MD Objective Remarks Abd:soft,nt,nd Capps: urine clear Wound: moderate drainage noted. Scrotal erythema improved. Medications and IVs Current Medications Medications (Trade) Dose Ordered Sig/Abdiel Route Start Time Stop Time Status Last Admin Ampicillin Sodium/ Sulbactam Sodium 1500 mg/Sodium Chloride 100 ml @ 200 mls/hr Q6H IV 12/28/16 20:00 12/29/16 02:53 (NS 1000 ml Inj) 1,000 ml @ 125 mls/hr Q8H IV 12/28/16 21:00 12/29/16 05:52 (NS Flush) 2 ml UNSCH PRN .XX 12/28/16 20:15 (NS Flush) 2 ml BID .XX 12/28/16 21:00 12/28/16 20:30 (Tylenol) 650 mg Q6H PRN PO 12/28/16 20:15 (Morphine Inj) 2 mg Q2H PRN IV 12/28/16 20:15 (Pepcid Inj) 10 mg Q12HR IV PUSH 12/28/16 21:00 12/28/16 22:50 (Ativan Inj) 1 mg Q1H PRN IV 12/28/16 20:15 (Tears Naturale Opth Soln) 1 drop TID EACH EYE 12/29/16 09:00 (Zofran Inj) 4 mg Q6H PRN IV 12/28/16 20:15 (Reglan Inj) 5 mg Q6H PRN IV 12/28/16 20:15 (Colace Liq) 100 mg Q12H G-TUBE 12/28/16 21:00 12/28/16 22:50 (Heparin Inj) 5,000 units Q8H SQ 12/28/16 22:00 Miscellaneous Information 1 Q361D XX 12/28/16 20:15 12/29/16 00:29 (Chlorhexidine 2% Cloth) 3 pack Taper DAILY@04 TOP 12/29/16 04:00 12/25/17 03:59 12/29/16 02:53 Chlorhexidine Gluconate 3 pack 3 pack UNSCH PRN TOP 12/28/16 20:15 Propofol 100 ml @ 0 mls/hr TITRATE IV 12/28/16 20:15 Fentanyl Citrate 250 ml @ 0 mls/hr TITRATE IV 12/28/16 20:15 12/28/16 22:50 (Cleocin Inj/NS Inj) 104 ml @ 208 mls/hr Q8H IV 12/29/16 00:00 12/29/16 01:01 Miscellaneous Information ALL NURSING DEPARTME... UNSCH PRN XX 12/28/16 20:45 12/29/16 20:44 (Vancomycin Consult Pharmacy) 0 ml @ 0 mls/hr UNSCH OTHER 12/29/16 07:15 (D50w (Vial) Inj) 25 ml UNSCH PRN IV PUSH 12/29/16 07:15 Assessment and Plan Assessment and Plan 71-year-old male with perineal/rectal abscess; 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 Patient will require IR intervention for debridement with washout. Risk and benefits discussed and patient is willing to proceed. 12/29 71 y.o male s/p debridement and washout of necrotizing fascitis Will plan to return to OR tomorrow for washout NPO after Tim Moss DO Dec 29, 2016 10:08
[2016-12-29] MEDS: INSULIN NovoLIN REGULAR SUPPLEMENTAL SCALE SQ SCH ×3 (11:00→21:39)
[2016-12-29 11:17] LABS: BANDS 20 % (0-6); NEUTROPHIL # MANUAL DIFF 12.1 TH/MM3 (1.8-7.7); OVALOCYTES 1+ (NORMAL); PLATELET ESTIMATE SMEAR LOW (NORMAL); PLATELET MORPHOLOGY NORMAL (NORMAL); POLYS (SEG NEUTROPHILS) 71 % (16-70); SCAN/DIFF FINAL DIFF MANUAL; WBC DIFF SAMPLE 100
[2016-12-29] MEDS: ACETAMINOPHEN 325 MG TAB PO PRN (13:42)
--- NOTE | 2016-12-29 15:24 | EKG ---
Date Performed: 12/28/2016 Time Performed: 16:37:31 PTAGE: 71 years EKG: Sinus rhythm with very frequent PACs Old anterior infarct Nonspecific T wave abnormalities PACs are new from the prior tracing ABNORMAL ECG NO PREVIOUS TRACING DOCTOR: Harish Baker Interpretating Date/Time 12/29/2016 15:24:31
--- NOTE | 2016-12-29 16:31 | PD.ID.CON ---
History of Present Illness Service ID Consult Requested By Reason for Consult Evaluation and Mment of sepsis, fourniers gangrene. Primary Care Physician [facility] Diagnoses: History of Present Illness is a 71-year CM with PMHx of Diabetes who is on Tanzeum (GLP 1 agonist effects last upto once a week: its a subq injection). Patient reports he has been on this medication as despite good diet and compliance with meds his A1C was 7.7. He also reports history of pacemaker and defibrillator placement in 2016. He presents to the hospital due to testicular swelling. Patient reports swelling, discomfort and pain in the testicular area. He could not see it and does not know if he had a skin lesion prior to this episode at that site. He does report prior infections in the groin region. He also noted that her sugars has been slightly elevated. Denies any fevers. He has been feeling generally weak as well. Denied abdominal pain nausea vomiting or diarrhea. He thought the scrotal swelling was from the Aldactone and came into the emergency department to be evaluated. 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 Patient received Unasyn IV, Meropenem and Clinda IV. Currently patient is on Unasyn IV, Vanco IV and Clinda IV. Patient is currently in the ICU extubated this am. He is not on pressors. RN informs me plan for further debridement in am. ID consulted for sepsis, fourniers gangrene. Review of Systems ROS Limitations: Poor Historian Constitutional: DENIES: Diaphoretic episodes, Fatigue, Fever, Weight gain, Weight loss, Chills, Dizziness, Change in appetite, Night Sweats Endocrine: DENIES: Heat/cold intolerance, Polydipsia, Polyuria, Polyphagia Eyes: DENIES: Blurred vision, Diplopia, Eye inflammation, Eye pain, Vision loss , Photosensitivity, Double Vision Ears, nose, mouth, throat: DENIES: Tinnitus, Hearing loss, Vertigo, Nasal discharge, Oral lesions, Throat pain, Hoarseness, Ear Pain, Running Nose, Epistaxis, Sinus Pain, Toothache, Odynophagia Respiratory: DENIES: Apneas, Cough, Snoring, Wheezing, Hemoptysis, Sputum production, Shortness of breath Cardiovascular: DENIES: Chest pain, Palpitations, Syncope, Dyspnea on Exertion , PND, Lower Extremity Edema, Orthopnea, Claudication Gastrointestinal: DENIES: Abdominal pain, Black stools, Bloody stools, Constipation, Diarrhea, Nausea, Vomiting, Difficulty Swallowing, Anorexia Genitourinary: COMPLAINS OF: Penile Discharge, Testicular Pain, Testicular Swelling, DENIES: Sexual dysfunction, Urinary frequency, Urinary incontinence, Urgency, Hematuria, Dysuria, Nocturia Musculoskeletal: DENIES: Joint pain, Muscle aches, Stiffness, Joint Swelling, Back pain, Neck pain Integumentary: DENIES: Abnormal pigmentation, Nail changes, Pruritus, Rash Hematologic/lymphatic: DENIES: Bruising, Lymphadenopathy Immunologic/allergic: DENIES: Eczema, Urticaria Neurologic: DENIES: Abnormal gait, Headache, Localized weakness, Paresthesias, Seizures, Speech Problems, Tremor, Poor Balance Psychiatric: DENIES: Anxiety, Confusion, Mood changes, Depression, Hallucinations, Agitation, Suicidal Ideation, Homicidal Ideation, Delusions Except as stated in HPI: all other systems reviewed are Neg Past Family Social History Allergies: Coded Allergies: No Known Allergies (Verified , 12/28/16) Past Medical History Hypertension Diabetes mellitus Dyslipidemia Obesity Chronic tobacco use disorder Coronary artery disease status post CABG Chronic kidney disease CHF with EF 40% BPH Gout Past Surgical History CABG Coronary artery angiogram Defibrillator and pacemaker. Reported Medications Reported Meds & Active Scripts Active Reported Valsartan 320 Mg Tab 320 Mg PO DAILY Omeprazole 20 Mg Tab 20 Mg PO DAILY Furosemide 40 Mg Tab 60 Mg PO BID Cyanocobalamin Inj (Cyanocobalamin) 1,000 Mcg/Ml Inj 1,000 Mcg IM Q30D Carvedilol 25 Mg Tab 50 Mg PO BID Atorvastatin (Atorvastatin Calcium) 40 Mg Tab 40 Mg PO HS Allopurinol 100 Mg Tab 200 Mg PO DAILY Tanzeum 4-Pack Inj (Albiglutide) 50 Mg Pfpen 50 Mg SQ Q7D Spironolactone 25 Mg Tab 12.5 Mg PO DAILY Active Ordered Medications Current Medications Medications (Trade) Dose Ordered Sig/Abdiel Route Start Time Stop Time Status Last Admin Ampicillin Sodium/ Sulbactam Sodium 1500 mg/Sodium Chloride 100 ml @ 200 mls/hr Q6H IV 12/28/16 20:00 12/29/16 14:00 (NS 1000 ml Inj) 1,000 ml @ 125 mls/hr Q8H IV 12/28/16 21:00 12/29/16 05:52 (NS Flush) 2 ml UNSCH PRN .XX 12/28/16 20:15 (NS Flush) 2 ml BID .XX 12/28/16 21:00 12/29/16 09:00 (Tylenol) 650 mg Q6H PRN PO 12/28/16 20:15 12/29/16 13:42 (Ativan Inj) 1 mg Q1H PRN IV 12/28/16 20:15 (Tears Naturale Opth Soln) 1 drop TID EACH EYE 12/29/16 09:00 (Zofran Inj) 4 mg Q6H PRN IV 12/28/16 20:15 (Colace Liq) 100 mg Q12H G-TUBE 12/28/16 21:00 12/29/16 10:06 (Heparin Inj) 5,000 units Q8H SQ 12/28/16 22:00 12/29/16 15:55 Miscellaneous Information 1 Q361D XX 12/28/16 20:15 12/29/16 00:29 (Chlorhexidine 2% Cloth) 3 pack Taper DAILY@04 TOP 12/29/16 04:00 12/25/17 03:59 12/29/16 02:53 Chlorhexidine Gluconate 3 pack 3 pack UNSCH PRN TOP 12/28/16 20:15 (Cleocin Inj/NS Inj) 104 ml @ 208 mls/hr Q8H IV 12/29/16 00:00 12/29/16 15:55 Miscellaneous Information ALL NURSING DEPARTME... UNSCH PRN XX 12/28/16 20:45 12/29/16 20:44 (D50w (Vial) Inj) 25 ml UNSCH PRN IV PUSH 12/29/16 07:15 (Pepcid) 20 mg BID PO 12/29/16 21:00 (Roxicodone) 5 mg Q4H PRN PO 12/29/16 15:00 (Dilaudid Pf Inj) 0.5 mg Q4H PRN IV PUSH 12/29/16 15:00 Family History NC to current ID problems. Social History smoking in past. Denies alcohol or IVDA. Physical Exam Vital Signs Vital Signs Date Time Temp Pulse Resp B/P Pulse Ox O2 Delivery O2 Flow Rate FiO2 12/29/16 08:00 93 Nasal Cannula 4.00 12/29/16 07:36 96 Nasal Cannula 4.00 12/29/16 07:36 96 Nasal Cannula 4 12/29/16 07:27 Nasal Cannula 40 12/29/16 07:27 100 40 12/29/16 07:00 82 12/29/16 07:00 Mechanical Ventilator 12/29/16 04:00 77 12/29/16 04:00 98.8 77 17 118/58 100 112/54 12/29/16 03:30 100 40 12/29/16 02:00 78 12/29/16 00:27 100 40 12/29/16 00:00 76 12/29/16 00:00 98.3 79 12 124/62 100 121/62 12/28/16 23:45 96 50 12/28/16 23:00 98.9 84 10 128/62 100 12/28/16 22:00 99.0 86 10 107/54 100 12/28/16 21:30 99.1 90 10 125/55 100 12/28/16 21:15 99.1 90 10 125/55 100 12/28/16 21:15 90 12/28/16 20:46 92 50 12/28/16 20:40 75 10 113/57 100 Mechanical Ventilator 50 12/28/16 20:30 50 12/28/16 20:30 99.4 74 10 101/57 100 Mechanical Ventilator 50 102/42 12/28/16 20:15 75 10 89/51 100 Mechanical Ventilator 50 94/40 12/28/16 20:00 84 10 95/54 99 Mechanical Ventilator 50 95/40 12/28/16 19:45 98.9 81 10 102/57 99 Mechanical Ventilator 50 113/41 12/28/16 19:45 50 12/28/16 19:45 99.4 75 10 95/10 100 12/28/16 19:45 99 50 Physical Exam GENERAL: Obese, CM patient, in no apparent distress. SKIN: No rashes. HEAD: Atraumatic. Normocephalic. No temporal or scalp tenderness. EYES: Pupils equal round and reactive. Extraocular motions intact. No scleral icterus. No injection or drainage. ENT: Nose without bleeding, purulent drainage or septal hematoma. Throat without erythema, tonsillar hypertrophy or exudate. Uvula midline. Airway patent. NECK: Trachea midline. Supple, nontender, no meningeal signs. CARDIOVASCULAR: Regular rate and rhythm without murmurs, gallops, or rubs. RESPIRATORY: Clear to auscultation. Breath sounds equal bilaterally. GASTROINTESTINAL: Abdomen soft, non-tender, nondistended. Umbilical hernia noted. MUSCULOSKELETAL: Extremities without clubbing, cyanosis, or edema. Scrotal area with erythema noted. Packing noted with some unhealthy tissue in base. Penile meatus: yellowish discharge noted. NEUROLOGICAL: Awake and alert. Grossly non focal Psych: cooperative IV line sites with no e.o infection. Laboratory Laboratory Tests Test 12/28/16 12/28/16 12/28/16 12/28/16 19:20 19:31 19:32 19:36 Blood Gas Puncture Site KAUSHAL Blood Gas Patient Temperature 98.6 Blood Gas HCO3 24 Blood Gas Base Excess 0.4 Blood Gas Oxygen Saturation 96 Arterial Blood pH 7.45 Arterial Blood Partial 35 Pressure CO2 Arterial Blood Partial 233 Pressure O2 Arterial Blood Oxygen Content 13.3 Arterial Blood 2.1 Carboxyhemoglobin Arterial Blood Methemoglobin 1.1 Blood Gas Hemoglobin 9.4 Oxygen Delivery Device VENTILATOR Blood Gas Ventilator Setting OR VENT Blood Gas Inspired Oxygen 50 Crossmatch Leukocyte-Reduced Red Blood Cells Blood Bank Comment Blood Type O POSITIVE O POSITIVE Antibody Screen NEGATIVE Test 12/28/16 12/28/16 12/29/16 21:00 23:30 05:14 Nasal Screen MRSA (PCR) NEGATIVE Blood Gas Puncture Site KAUSHAL Blood Gas Patient Temperature 98.6 Blood Gas HCO3 24 Blood Gas Base Excess -1.7 Blood Gas Oxygen Saturation 96 Arterial Blood pH 7.29 Arterial Blood Partial 51 Pressure CO2 Arterial Blood Partial 170 Pressure O2 Arterial Blood Oxygen Content 13.7 Arterial Blood 1.8 Carboxyhemoglobin Arterial Blood Methemoglobin 0.8 Blood Gas Hemoglobin 9.9 Blood Gas Ventilator Setting PRVC 10/700/PEEP5 Blood Gas Inspired Oxygen 50 White Blood Count 13.3 Red Blood Count 3.72 Hemoglobin 10.2 Hematocrit 30.6 Mean Corpuscular Volume 82.3 Mean Corpuscular Hemoglobin 27.6 Mean Corpuscular Hemoglobin 33.5 Concent Red Cell Distribution Width 18.9 Platelet Count 92 Mean Platelet Volume 8.8 Neutrophils (%) (Auto) 84.9 Lymphocytes (%) (Auto) 7.5 Monocytes (%) (Auto) 7.5 Eosinophils (%) (Auto) 0.0 Basophils (%) (Auto) 0.1 Neutrophils # (Auto) 11.3 Lymphocytes # (Auto) 1.0 Monocytes # (Auto) 1.0 Eosinophils # (Auto) 0.0 Basophils # (Auto) 0.0 CBC Comment AUTO DIFF Differential Total Cells 100 Counted Neutrophils % (Manual) 71 Band Neutrophils % 20 Lymphocytes % 5 Monocytes % 4 Neutrophils # (Manual) 12.1 Differential Comment FINAL DIFF MANUAL Platelet Estimate LOW Platelet Morphology Comment NORMAL Ovalocytes 1+ Sodium Level 140 Potassium Level 3.9 Chloride Level 105 Carbon Dioxide Level 25.7 Anion Gap 9 Blood Urea Nitrogen 57 Creatinine 3.35 Estimat Glomerular Filtration 18 Rate Random Glucose 174 Lactic Acid Level 1.1 Calcium Level 7.8 Phosphorus Level 4.8 Magnesium Level 1.9 Total Bilirubin 1.2 Aspartate Amino Transf 20 (AST/SGOT) Alanine Aminotransferase 15 (ALT/SGPT) Alkaline Phosphatase 82 Total Creatine Kinase 173 Total Protein 5.5 Albumin 2.3 Date/Time Procedure Status Source Growth 12/28/16 18:35 Gram Stain - Final Resulted Abscess Scrotum 12/28/16 18:35 Wound Culture - Preliminary Resulted Group D Enterococcus 12/28/16 18:35 Fungal Smear - Final Resulted Abscess Scrotum NO FUNGAL ELEMENTS SEEN. 12/28/16 18:35 Fungal Culture Resulted Abscess Scrotum Pending 12/28/16 18:35 Acid Fast Stain Received Abscess Scrotum Pending 12/28/16 18:35 Mycobacterial Culture Received Abscess Scrotum Pending 12/28/16 13:15 Urine Culture - Final Complete Urine Random Urine Group A Beta Strep 12/28/16 12:50 Aerobic Blood Culture - Preliminary Resulted Blood Peripheral NO GROWTH IN 1 DAY 12/28/16 12:50 Anaerobic Blood Culture - Preliminary Resulted Blood Peripheral NO GROWTH IN 1 DAY 12/28/16 12:40 Aerobic Blood Culture Received Blood Peripheral Pending 12/28/16 12:40 Anaerobic Blood Culture Received Blood Peripheral Pending Result Diagram: 12/29/16 0514 12/29/16 0514 Imaging Last Impressions Scrotum Ultrasound 12/28/16 1246 Signed Impressions: Service Date/Time: Wednesday, December 28, 2016 14:05 - CONCLUSION: 1. Marked thickening of the scrotal wall, up to 2.4 cm on the right. 2. Small complex left hydrocele. 3. Small complex cysts right testicle. Positive testicular blood flow. Nael Scott MD Abdomen/Pelvis CT 12/28/16 1237 Signed Impressions: Service Date/Time: Wednesday, December 28, 2016 14:52 - CONCLUSION: 1. 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 2. Mild bilateral inguinal adenopathy and marked scrotal wall thickening. 3. Fat-containing 5.7 cm umbilical hernia. 4. Atherosclerotic aorta with some displaced intimal calcifications but without significant aneurysm. No bowel obstruction. Mild ileus. 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 Grp D Enterococcus vs Strep in wound. Gram negative infection in groin. Grp A Strep in urine. Diabetes Mellitus uncontrolled. On Tanzem once a week GLP agonist. At risk for hypoglycemia. H/o recurrent groin area infections. Acute renal failure: prerenal, sepsis. Oliguric 200 cc urine since am. CAD, CABG, s/p defibrillator and pacemaker. Recs: Continue Unasyn IV Continue Clindamycin IV DC Vanco IV (check Vanco level and cultures in am to decide continuing need) Follow cultures Follow clinically. d/w : urine output and Tanzem related blood glucose monitoring issues. Joan Woods MD Dec 29, 2016 16:31
[2016-12-29] MEDS: FAMOTIDINE 20 MG TAB PO SCH (20:45)
[2016-12-29] MEDS: HYDROmorphone HCL PF 1 MG/ML VIAL IV PUSH PRN (21:40)
[2016-12-30] VITALS (13 sets, daily range): BP systolic 102–147; BP diastolic 55–84; PULSE 68–79; RESP 16–22; TEMP 87–98.2; O2SAT 93–99
[2016-12-30] MEDS: AMPICILLIN/SULBAC 1500 MG/NS 100 ML IV SCH ×6 (01:08→21:55)
[2016-12-30] MEDS: INSULIN NovoLIN REGULAR SUPPLEMENTAL SCALE SQ SCH ×5 (03:00→21:00)
[2016-12-30] MEDS: CHLORHEXIDINE GLUCONATE 2 % 1 PACK (2 CLOTHS) TOP SCH (04:00)
[2016-12-30 04:20] LABS: HEMATOCRIT 34.2 % (39.0-51.0); MEAN CELL VOLUME 84.5 FL (80.0-100.0); MEAN CORPUSCULAR HEMOGLOBIN 26.9 PG (27.0-34.0); MEAN CORPUSCULAR HGB CONC 31.9 % (32.0-36.0); PLATELET COUNT 104 TH/MM3 (150-450); RED BLOOD COUNT 4.05 MIL/MM3 (4.50-5.90); RED CELL DISTRIBUTION WIDTH 19.7 % (11.6-17.2); REVIEW FLAG FINAL; WHITE BLOOD COUNT 11.7 TH/MM3 (4.0-11.0)
[2016-12-30 04:41] LABS: BICARBONATE 27.1 MEQ/L (21.0-32.0); POTASSIUM 4.4 MEQ/L (3.5-5.1)
[2016-12-30] MEDS: HEPARIN SODIUM - SQ 10,000 UNITS/ML VIAL SQ SCH ×3 (05:00→21:55)
[2016-12-30] MEDS: SODIUM CHLOR 0.9% 1000 ML INJ 1,000 ML IV SCH ×2 (05:06→11:51)
[2016-12-30] MEDS: FAMOTIDINE 20 MG TAB PO SCH ×2 (08:29→21:55)
[2016-12-30] MEDS: DOCUSATE SODIUM 100 MG/10 ML UDC G-TUBE SCH ×2 (08:29→21:00)
[2016-12-30] MEDS: SODIUM CHLORIDE 0.9% FLUSH 10 ML FLUSH SCH ×2 (08:30→21:53)
[2016-12-30] MEDS: ARTIFICIAL TEARS OPTH SOLN 15 ML BTL EACH EYE SCH ×2 (08:30→10:12)
[2016-12-30] MEDS: CLINDAMYCIN INJ 600 MG in SODIUM CHLORIDE 0.9% INJ 100 ML IV SCH ×3 (08:31→23:44)
--- NOTE | 2016-12-30 08:32 | HHI.CCPN ---
Subjective Remarks/Hospital Course Hospital Course: 71-year-old male presents for evaluation of testicular swelling. Approximately 10 days ago he was started on Aldactone for his blood pressure which. He also noted that her sugars has been slightly elevated. Denies any fevers. He has been feeling generally weak as well. Denied abdominal pain nausea vomiting or diarrhea. He thought the scrotal swelling was from the Aldactone and came into the emergency department to be evaluated. 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 remains intubated overnight. off vasopressors. 12/30: Much more comfortable. Back to OR for washout today. Breathing without distress. STEFFEN improving. Objective Vital Signs Date Time Temp Pulse Resp B/P Pulse Ox O2 Delivery O2 Flow Rate FiO2 12/30/16 06:00 68 12/30/16 04:00 97.6 22 147/63 96 12/29/16 20:31 Nasal Cannula 4.00 12/29/16 07:27 40 Intake and Output 12/29/16 12/29/16 12/30/16 08:00 16:00 00:00 Intake Total 1235 ml 2502 ml Output Total 98 ml 355 ml Balance 1137 ml 2147 ml Result Diagram: 12/30/16 0337 12/30/16 0337 Other Results Microbiology Date/Time Procedure Status Source Growth 12/28/16 13:15 Urine Culture - Final Complete Urine Random Urine Group A Beta Strep Imaging Last 24 hours Impressions Scrotum Ultrasound 12/28/16 1246 Signed Impressions: Service Date/Time: Wednesday, December 28, 2016 14:05 - CONCLUSION: 1. Marked thickening of the scrotal wall, up to 2.4 cm on the right. 2. Small complex left hydrocele. 3. Small complex cysts right testicle. Positive testicular blood flow. Nael Scott MD Abdomen/Pelvis CT 12/28/16 1237 Signed Impressions: Service Date/Time: Wednesday, December 28, 2016 14:52 - CONCLUSION: 1. 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 2. Mild bilateral inguinal adenopathy and marked scrotal wall thickening. 3. Fat-containing 5.7 cm umbilical hernia. 4. Atherosclerotic aorta with some displaced intimal calcifications but without significant aneurysm. No bowel obstruction. Mild ileus. Nael Scott MD Objective Remarks GENERAL: Comfortable. SKIN: Warm and dry. HEAD: Normocephalic. EYES: No scleral icterus. No injection or drainage. NECK: trachea midline.Supple. CARDIOVASCULAR: Regular rate and rhythm without murmurs, NL S1S2, no JVD RESPIRATORY: Breath sounds equal bilaterally. No accessory muscle use. No wheezes or crackles. GASTROINTESTINAL: Abdomen soft, non-tender, nondistended. BS active. MUSCULOSKELETAL: Warm, well perfused. EXTREMITIES: No clubbing cyanosis or edema : Packing which is clean and dry in the groin. a pimentel exits the penis. 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 Clinically stable. likely stable for extubation today. Per urology, going back for repeat debridement tomorrow. Will continue clindamycin for another 24h until urology re-evaluates the wound and is confident there is no necrotic tissue remaining. Respiratory failure - currently on SBT. if he passes, will pursue extubation -> done. 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 - add 500mg dose of vancomycin (15mg/kg loading dose of vancomycin 1.5gm and patient received 1gm yesterday). Given GFR < 20, will hold off on additional vancomycin and consult pharmacy for dosing assistance. - ID consult for long-term follow-up. - f/u cultures. CHF - No exacerbation - Supportive care - Resume home medications when hemodynamically stable Diabetes - Insulin sliding scale Acute on Chronic kidney disease - Strict I's and O's - Aggressive IV fluid hydration - Monitor electrolytes and creatinine DVT GI prophylaxis - Subcutaneous heparin and Pepcid Overall impression: Improved hemodynamics after infection source control. Roshan Carlos MD Dec 30, 2016 08:32
--- NOTE | 2016-12-30 08:47 | HHI.CCPN ---
Subjective Remarks/Hospital Course Hospital Course: 71-year-old male presents for evaluation of testicular swelling. Approximately 10 days ago he was started on Aldactone for his blood pressure which. He also noted that her sugars has been slightly elevated. Denies any fevers. He has been feeling generally weak as well. Denied abdominal pain nausea vomiting or diarrhea. He thought the scrotal swelling was from the Aldactone and came into the emergency department to be evaluated. 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 remains intubated overnight. off vasopressors. 12/30: Much more comfortable. Back to OR for washout today. Breathing without distress. STEFFEN improving. Patient has dilated cardiomyopathy with severe systolic heart failure and EF 25-30% by last ECHO 2013. May need low-dose inotrope during course of therapy. 12/30 1800 hrs: Seen after OR today. He has full neck veins and light wheezes with basilar crackles. His underlying LV dysfunction requires that we treat this aggressively with diuretics and subsequent electrolyte replacement. Will move back to [facility]. Objective Vital Signs Date Time Temp Pulse Resp B/P Pulse Ox O2 Delivery O2 Flow Rate FiO2 12/30/16 06:00 68 12/30/16 04:00 97.6 22 147/63 96 12/29/16 20:31 Nasal Cannula 4.00 12/29/16 07:27 40 Intake and Output 12/29/16 12/29/16 12/30/16 08:00 16:00 00:00 Intake Total 1235 ml 2502 ml Output Total 98 ml 355 ml Balance 1137 ml 2147 ml Result Diagram: 12/30/16 0337 12/30/16 0337 Other Results Microbiology Date/Time Procedure Status Source Growth 12/28/16 13:15 Urine Culture - Final Complete Urine Random Urine Group A Beta Strep Imaging Last 24 hours Impressions Scrotum Ultrasound 12/28/16 1246 Signed Impressions: Service Date/Time: Wednesday, December 28, 2016 14:05 - CONCLUSION: 1. Marked thickening of the scrotal wall, up to 2.4 cm on the right. 2. Small complex left hydrocele. 3. Small complex cysts right testicle. Positive testicular blood flow. Nael Scott MD Abdomen/Pelvis CT 12/28/16 1237 Signed Impressions: Service Date/Time: Wednesday, December 28, 2016 14:52 - CONCLUSION: 1. 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 2. Mild bilateral inguinal adenopathy and marked scrotal wall thickening. 3. Fat-containing 5.7 cm umbilical hernia. 4. Atherosclerotic aorta with some displaced intimal calcifications but without significant aneurysm. No bowel obstruction. Mild ileus. Nael Scott MD Objective Remarks GENERAL: Comfortable. SKIN: Warm and dry. HEAD: Normocephalic. EYES: No scleral icterus. No injection or drainage. NECK: trachea midline.Supple. CARDIOVASCULAR: Regular rate and rhythm without murmurs, NL S1S2, no JVD RESPIRATORY: Breath sounds equal bilaterally. No accessory muscle use. No wheezes or crackles. GASTROINTESTINAL: Abdomen soft, non-tender, nondistended. BS active. MUSCULOSKELETAL: Warm, well perfused. EXTREMITIES: No clubbing cyanosis or edema : Packing which is clean and dry in the groin. a pimentel exits the penis. 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 Clinically stable. likely stable for extubation today. Per urology, going back for repeat debridement tomorrow. Will continue clindamycin for another 24h until urology re-evaluates the wound and is confident there is no necrotic tissue remaining. Respiratory failure - currently on SBT. if he passes, will pursue extubation -> done. 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 - add 500mg dose of vancomycin (15mg/kg loading dose of vancomycin 1.5gm and patient received 1gm yesterday). Given GFR < 20, will hold off on additional vancomycin and consult pharmacy for dosing assistance. - ID consult for long-term follow-up. - f/u cultures. CHF - No exacerbation - Supportive care - Resume home medications when hemodynamically stable Diabetes - Insulin sliding scale Acute on Chronic kidney disease - Strict I's and O's - Aggressive IV fluid hydration - Monitor electrolytes and creatinine DVT GI prophylaxis - Subcutaneous heparin and Pepcid Overall impression: Improved hemodynamics after infection source control. Roshan Carlos MD Dec 30, 2016 08:47
[2016-12-30] MEDS: HYDROmorphone HCL PF 1 MG/ML VIAL IV PUSH PRN (09:32)
--- NOTE | 2016-12-30 09:49 | HHI.PR ---
Subjective Patient symptoms today Pt seen and examined. OOB to chair. For OR today. Objective Vital Signs Vital Signs Date Time Temp Pulse Resp B/P Pulse Ox O2 Delivery O2 Flow Rate FiO2 12/30/16 06:00 68 12/30/16 04:00 97.6 74 22 147/63 96 12/30/16 04:00 74 12/30/16 02:00 77 12/30/16 00:00 97.7 72 16 102/55 94 12/30/16 00:00 72 12/29/16 23:00 79 12/29/16 22:10 16 12/29/16 22:00 77 12/29/16 20:31 96 Nasal Cannula 4.00 12/29/16 20:00 76 12/29/16 20:00 97.9 76 17 100/50 94 12/29/16 19:45 18 12/29/16 19:00 91 Nasal Cannula 4.00 12/29/16 16:00 97.8 87 18 107/53 94 12/29/16 15:00 82 12/29/16 12:00 98.2 84 16 105/56 96 Intake & Output 12/30/16 12/30/16 07:00 19:00 Intake Total 866 ml Output Total 177 ml Balance 689 ml Intake Oral 100 ml IV Total 766 ml Output Urine Total 177 ml Result Diagram: 12/30/1633612/30/16336 Objective Remarks Abd:soft,nt,nd Capps: urine clear Wound: moderate drainage noted. Scrotal erythema improved. 12/30 Abd:soft,nt,nd Capps with clear urine Scrotal erythema improved. Medications and IVs Current Medications Medications (Trade) Dose Ordered Sig/Abdiel Route Start Time Stop Time Status Last Admin Ampicillin Sodium/ Sulbactam Sodium 1500 mg/Sodium Chloride 100 ml @ 200 mls/hr Q6H IV 12/28/16 20:00 12/30/16 08:29 (NS 1000 ml Inj) 1,000 ml @ 150 mls/hr Q6H40M IV 12/28/16 21:00 12/30/16 05:06 (NS Flush) 2 ml UNSCH PRN .XX 12/28/16 20:15 (NS Flush) 2 ml BID .XX 12/28/16 21:00 12/30/16 08:30 (Tylenol) 650 mg Q6H PRN PO 12/28/16 20:15 12/29/16 13:42 (Ativan Inj) 1 mg Q1H PRN IV 12/28/16 20:15 (Tears Naturale Opth Soln) 1 drop TID EACH EYE 12/29/16 09:00 (Zofran Inj) 4 mg Q6H PRN IV 12/28/16 20:15 (Colace Liq) 100 mg Q12H G-TUBE 12/28/16 21:00 12/29/16 20:48 (Heparin Inj) 5,000 units Q8H SQ 12/28/16 22:00 12/29/16 15:55 Miscellaneous Information 1 Q361D XX 12/28/16 20:15 12/29/16 00:29 (Chlorhexidine 2% Cloth) 3 pack Taper DAILY@04 TOP 12/29/16 04:00 12/25/17 03:59 12/29/16 02:53 Chlorhexidine Gluconate 3 pack 3 pack UNSCH PRN TOP 12/28/16 20:15 (Cleocin Inj/NS Inj) 104 ml @ 208 mls/hr Q8H IV 12/29/16 00:00 12/30/16 08:31 (D50w (Vial) Inj) 25 ml UNSCH PRN IV PUSH 12/29/16 07:15 (Pepcid) 20 mg BID PO 12/29/16 21:00 12/29/16 20:45 (Roxicodone) 5 mg Q4H PRN PO 12/29/16 15:00 12/29/16 18:46 (Dilaudid Pf Inj) 0.5 mg Q4H PRN IV PUSH 12/29/16 15:00 12/30/16 09:32 Assessment and Plan Assessment and Plan 71-year-old male with perineal/rectal abscess; 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 Patient will require IR intervention for debridement with washout. Risk and benefits discussed and patient is willing to proceed. 12/29 71 y.o male s/p debridement and washout of necrotizing fascitis Will plan to return to OR tomorrow for washout NPO after MN 12/30 71 y.o. male s/p debridement with washout of necrotizing fascitis OR today for washout. NPO Tim Ling 27, 2017 09:49
[2016-12-30] MEDS ORDERED: ePHEDrine/NS 25 MG/5 ML SYR IV ONE (12:00)
[2016-12-30] MEDS ORDERED: PHENYLEPH/NS 1000 MCG/10 ML SYR IV ONE (12:00)
[2016-12-30] MEDS ORDERED: SODIUM CHLOR 0.9% 1000 ML INJ 1,000 ML IV ONE (12:00)
[2016-12-30] MEDS ORDERED: PROPOFOL 200 MG/20 ML AMP IV ONE (12:00)
--- NOTE | 2016-12-30 12:14 | PD.TRANSFR ---
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 Today to OR for washout of wound. To floor after. Broad ABX coverage managed by ID Service. He developed SOB after OR late yesterday afternoon with mild hypoxemia requiring 6 liters O2. Exam revealed crackles and full neck veins. After 100 mg of lasix he was breathing much more comfortably and was fine on 2 liters. I think the I & O is inaccurate for yesterday because he had copious urine after the lasix. He CKD is problematic; coupled with his EF of 25 - 30% from 2014. He tends to live with very poorly compensated systolic failure. Objective Vital Signs Date Time Temp Pulse Resp B/P Pulse Ox O2 Delivery O2 Flow Rate FiO2 12/30/16 10:00 96 Nasal Cannula 4.00 12/30/16 06:00 68 12/30/16 04:00 97.6 22 147/63 12/29/16 07:27 40 Intake and Output 12/29/16 12/29/16 12/30/16 08:00 16:00 00:00 Intake Total 1235 ml 2502 ml Output Total 98 ml 355 ml Balance 1137 ml 2147 ml Result Diagram: 12/30/16 0337 12/30/16 0337 Other Results Microbiology Date/Time Procedure Status Source Growth 12/28/16 13:15 Urine Culture - Final Complete Urine Random Urine Group A Beta Strep Imaging Last 24 hours Impressions Scrotum Ultrasound 12/28/16 1246 Signed Impressions: Service Date/Time: Wednesday, December 28, 2016 14:05 - CONCLUSION: 1. Marked thickening of the scrotal wall, up to 2.4 cm on the right. 2. Small complex left hydrocele. 3. Small complex cysts right testicle. Positive testicular blood flow. Nael Scott MD Abdomen/Pelvis CT 12/28/16 1237 Signed Impressions: Service Date/Time: Wednesday, December 28, 2016 14:52 - CONCLUSION: 1. 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 2. Mild bilateral inguinal adenopathy and marked scrotal wall thickening. 3. Fat-containing 5.7 cm umbilical hernia. 4. Atherosclerotic aorta with some displaced intimal calcifications but without significant aneurysm. No bowel obstruction. Mild ileus. Nael Scott MD Objective Remarks GENERAL: Comfortable. SKIN: Warm and dry. HEAD: Normocephalic. EYES: No scleral icterus. No injection or drainage. NECK: trachea midline.Supple. CARDIOVASCULAR: Regular rate and rhythm without murmurs, NL S1S2, no JVD RESPIRATORY: Breath sounds equal bilaterally. No accessory muscle use. No wheezes or crackles. GASTROINTESTINAL: Abdomen soft, non-tender, nondistended. BS active. MUSCULOSKELETAL: Warm, well perfused. EXTREMITIES: No clubbing cyanosis or edema : Packing which is clean and dry in the groin. a pimentel exits the penis. 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 Clinically stable. likely stable for extubation today. Per urology, going back for repeat debridement tomorrow. Will continue clindamycin for another 24h until urology re-evaluates the wound and is confident there is no necrotic tissue remaining. Respiratory failure - currently on SBT. if he passes, will pursue extubation -> done. 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 - add 500mg dose of vancomycin (15mg/kg loading dose of vancomycin 1.5gm and patient received 1gm yesterday). Given GFR < 20, will hold off on additional vancomycin and consult pharmacy for dosing assistance. - ID consult for long-term follow-up. - f/u cultures. CHF - No exacerbation - Supportive care - Resume home medications when hemodynamically stable Diabetes - Insulin sliding scale Acute on Chronic kidney disease - Strict I's and O's - Aggressive IV fluid hydration - Monitor electrolytes and creatinine DVT GI prophylaxis - Subcutaneous heparin and Pepcid Overall impression: Improved hemodynamics after infection source control. Roshan Carlos MD Dec 30, 2016 12:14
[2016-12-30] MEDS ORDERED: PILL SPLITTER OTHER PRN (12:15)
[2016-12-30] MEDS ORDERED: ceFAZolin INJ 1,000 MG VIAL ONE (12:26)
[2016-12-30] MEDS ORDERED: VANCOMYCIN HCL 1000 MG VIAL ONE (12:39)
[2016-12-30] MEDS ORDERED: MIDAZOLAM HCL 2 MG/2 ML VIAL ONE (12:43)
[2016-12-30] MEDS ORDERED: fentaNYL CITRATE 250 MCG/5 ML AMP ONE (12:43)
[2016-12-30] MEDS ORDERED: SUGAMMADEX SODIUM 200 MG/2 ML VIAL IV PUSH ONE ×4 (12:43→13:23)
--- NOTE | 2016-12-30 13:14 | PD.OP ---
Operative Report Date of Surgery: Dec 30, 2016 Preoperative Diagnosis: Necrotizing fasciitis/Becca's gangrene Postoperative Diagnosis: Same Procedure: Washout and debridement of necrotic tissue Anesthesia: CELSO Surgeon: Tim Ling Student Admissions Clerk(s): None Resident Surgeon: None Operation and Findings: This is 71-year-old male who presented over the weekend with necrotizing fasciitis and went for debridement with washout at that time. He was brought back 48 hours later to undergo further washout and debridement as necessary. Risks and metastases were discussed and he is willing proceed. Patient is brought to operating room and identified by myself as Danilo Mandel. He was placed in dorsal lithotomy position, prepped and draped in usual sterile fashion , received preprocedure antibiotics, and general endotracheal tube anesthesia was administered. The pulse customer care agent mixed with antibiotic solution was then used to washout the entire area again thoroughly. Once that was done any tissue was debrided. Only a few small areas along the skin edge needed debridement. The rest of the wound is healing well. Cleaning with antibiotic solution was then placed into the wound and 3-0 nylon sutures for the used then to approximate closure. He was awoken and transferred to room in stable condition. He'll follow up in 48 hours for 1 more washout and then final skin closure at that time. Tim Ling DO Dec 30, 2016 13:14
[2016-12-30] MEDS ORDERED: *RESP: ALBUTEROL 2.5 MG/3 ML NEB (PRN) PERIprocedural Use ONLY NEB ONE (13:40)
[2016-12-30] MEDS ORDERED: DO NOT ADM ANY ANTICOAGULANT DRUGS XX PRN (13:55)
[2016-12-30] MEDS: RESP: ALBUTEROL 2.5 MG/IPRATROPIUM 0.5 MG NEB (PRN) INH (16:02)
[2016-12-30] MEDS ORDERED: FUROSEMIDE 100 MG/10 ML VIAL IV PUSH ONE (17:30)
[2016-12-30] MEDS ORDERED: POTASSIUM CHLOR 20 MEQ PREMIX 100 ML IV ONE (17:30)
[2016-12-30] MEDS: MAGNESIUM SULFATE 1 GM PREMIX 100 ML IV SCH ×2 (17:42→18:34)
[2016-12-30] MEDS ORDERED: FUROSEMIDE 20 MG TAB PO SCH (21:00)
[2016-12-30] MEDS: ATORVASTATIN 40 MG TAB PO SCH (21:55)
[2016-12-30] MEDS: CARVEDILOL 12.5 MG TAB PO SCH (21:56)
[2016-12-31] VITALS (15 sets, daily range): BP systolic 113–186; BP diastolic 42–80; PULSE 65–90; RESP 14–21; TEMP 96.4–98.2; O2SAT 88–98
[2016-12-31] MEDS ORDERED: LORazepam 2 MG/ML VIAL ONE (00:13)
[2016-12-31] MEDS ORDERED: LORazepam 2 MG/ML VIAL IM ONE (00:15)
[2016-12-31] MEDS ORDERED: HALOPERIDOL LACTATE 5 MG/ML AMP IM ONE (00:15)
[2016-12-31] MEDS ORDERED: diphenhydrAMINE HCL 50 MG/ML VIAL IM ONE (01:00)
[2016-12-31] MEDS: INSULIN NovoLIN REGULAR SUPPLEMENTAL SCALE SQ SCH ×4 (03:00→21:00)
[2016-12-31] MEDS: CHLORHEXIDINE GLUCONATE 2 % 1 PACK (2 CLOTHS) TOP SCH (04:00)
[2016-12-31] MEDS: HEPARIN SODIUM - SQ 10,000 UNITS/ML VIAL SQ SCH ×3 (04:47→22:29)
[2016-12-31 05:16] LABS: HEMATOCRIT 37.8 % (39.0-51.0); MEAN CELL VOLUME 85.9 FL (80.0-100.0); MEAN CORPUSCULAR HGB CONC 31.4 % (32.0-36.0); PLATELET COUNT 143 TH/MM3 (150-450); RED CELL DISTRIBUTION WIDTH 19.6 % (11.6-17.2); WHITE BLOOD COUNT 10.2 TH/MM3 (4.0-11.0)
[2016-12-31 05:18] LABS: REVIEW FLAG FINAL
[2016-12-31 05:56] LABS: BICARBONATE 22.5 MEQ/L (21.0-32.0); MAGNESIUM 2.9 MG/DL (1.5-2.5); POTASSIUM 4.6 MEQ/L (3.5-5.1)
[2016-12-31] MEDS: RESP: ALBUTEROL 2.5 MG/IPRATROPIUM 0.5 MG NEB (PRN) INH (07:50)
[2016-12-31] MEDS: DOCUSATE SODIUM 100 MG/10 ML UDC G-TUBE SCH ×2 (08:13→20:10)
[2016-12-31] MEDS: FAMOTIDINE 20 MG TAB PO SCH ×2 (08:55→20:10)
[2016-12-31] MEDS: CARVEDILOL 12.5 MG TAB PO SCH ×2 (08:55→20:14)
[2016-12-31] MEDS: SPIRONOLACTONE 25 MG TAB PO SCH (08:55)
[2016-12-31] MEDS: FUROSEMIDE 40 MG/4 ML VIAL IV PUSH SCH ×2 (09:00→18:00)
[2016-12-31] MEDS: SODIUM CHLORIDE 0.9% FLUSH 10 ML FLUSH SCH ×2 (09:00→20:11)
[2016-12-31] MEDS: ARTIFICIAL TEARS OPTH SOLN 15 ML BTL EACH EYE SCH ×3 (09:00→18:40)
[2016-12-31 09:05] LABS: BLOOD GAS BASE EXCESS -7.2 mmol/L (-2-2); BLOOD GAS HCO3 20 mmol/L (22-26); BLOOD GAS METHEMOGLOBIN 0.8 % (0-2); BLOOD GAS O2 HGB SATURATION 91 % (90-100); BLOOD GAS OXYGEN CONTENT 15.4 Vol % (12.0-20.0); BLOOD GAS PCO2 59 mmHg (38-42); BLOOD GAS PO2 80 mmHg (61-120); BLOOD GAS TOTAL HGB 11.9 G/DL (12.0-16.0); TEMP CORR TO 98.6
[2016-12-31 09:06] LABS: CRITICAL VALUE YES; DRAW SITE RT RADIAL; FIO2 50 %; NUMBER OF ARTERIAL PUNCTURES 1; OXYGEN DEVICE VENTI MASK; STAT YES; ULNAR PULSE PRESENT
[2016-12-31] MEDS ORDERED: FUROSEMIDE 100 MG/10 ML VIAL IV PUSH ONE (09:30)
[2016-12-31] MEDS: methylPREDNISolone SOD SUCC 125 MG/2 ML VIAL IV PUSH SCH ×3 (09:34→22:29)
[2016-12-31] MEDS: AMPICILLIN/SULBAC 1500 MG/NS 100 ML IV SCH ×4 (09:37→20:09)
--- NOTE | 2016-12-31 09:41 | RADRPT ---
EXAM DATE/TIME: 12/31/2016 09:01 [facility] COMPARISON: CHEST SINGLE AP, August 08, 2014, 10:31. INDICATIONS : Shortness of breath, difficulty breathing. MEDICAL HISTORY : Hypertension. Diabetes. SURGICAL HISTORY : CABG. Pacemaker. ENCOUNTER: Subsequent ACUITY: 3 days PAIN SCORE: 7/10 LOCATION: Bilateral chest FINDINGS: Single AP view of the chest. Median sternotomy wires and cardiac pacemaker are again seen. Cardiac si lhouette is again enlarged and unchanged. Hazy opacity at the right lung base and mild obscuration of the medial left lung base. No evidence of pneumothorax. CONCLUSION: Chronic cardiac silhouette enlargement and mild bilateral lower lung zone opacity. Differential diagn osis includes mild pulmonary edema and atelectasis. Possible small right pleural effusion. Gabe Landers MD on December 31, 2016 at 9:38 Board Certified Radiologist. This report was verified electronically.
[2016-12-31] MEDS ORDERED: MIDAZOLAM HCL 5 MG/ML VIAL (1 ML) ONE (09:59)
[2016-12-31] MEDS ORDERED: ROCURONIUM INJ 50 MG/5 ML VIAL ONE ×2 (09:59→11:20)
[2016-12-31] MEDS: DEXMEDETOMIDINE INJ 50 ML IV SCH (11:06)
--- NOTE | 2016-12-31 11:12 | HHI.CCPN ---
Subjective Remarks/Hospital Course Hospital Course: 71-year-old male presents for evaluation of testicular swelling. Approximately 10 days ago he was started on Aldactone for his blood pressure which. He also noted that her sugars has been slightly elevated. Denies any fevers. He has been feeling generally weak as well. Denied abdominal pain nausea vomiting or diarrhea. He thought the scrotal swelling was from the Aldactone and came into the emergency department to be evaluated. 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 remains intubated overnight. off vasopressors. 12/30: Much more comfortable. Back to OR for washout today. Breathing without distress. STEFFEN improving. Patient has dilated cardiomyopathy with severe systolic heart failure and EF 25-30% by last ECHO 2013. May need low-dose inotrope during course of therapy. 12/30 1800 hrs: Seen after OR today. He has full neck veins and light wheezes with basilar crackles. His underlying LV dysfunction requires that we treat this aggressively with diuretics and subsequent electrolyte replacement. Will move back to [facility]. 12/31: Required rapid response for 2nd time in 12 hours. Will need intubation due to severe systolic heart failure and pulmonary edema. Objective Vital Signs Date Time Temp Pulse Resp B/P Pulse Ox O2 Delivery O2 Flow Rate FiO2 12/31/16 09:20 94 50 12/31/16 08:50 Venturi Mask 6.00 12/31/16 08:00 96.4 83 20 143/80 Intake and Output 12/30/16 12/30/16 12/31/16 08:00 16:00 00:00 Intake Total 1258 ml 540 ml Output Total 97 ml 190 ml 350 ml Balance -97 ml 1068 ml 190 ml Result Diagram: 12/31/16 0356 12/31/16 0356 Other Results Microbiology Date/Time Procedure Status Source Growth 12/28/16 13:15 Urine Culture - Final Complete Urine Random Urine Group A Beta Strep 12/28/16 18:25 Gram Stain - Final Complete Abscess Scrotum 12/28/16 18:25 Wound Culture - Final Complete Escherichia Coli Enterococcus Faecalis Staph Sp Coagulase Negative 12/28/16 18:35 Gram Stain - Final Complete Abscess Scrotum 12/28/16 18:35 Wound Culture - Final Complete Enterococcus Faecalis Staph Sp Coagulase Negative Laboratory Tests Test 12/31/16 08:52 Blood Gas Puncture Site RT RADIAL Blood Gas Patient Temperature 98.6 Blood Gas HCO3 20 mmol/L (22-26) Blood Gas Base Excess -7.2 mmol/L (-2-2) Blood Gas Oxygen Saturation 91 % (90-100) Arterial Blood pH 7.16 (7.380-7.420) Arterial Blood Partial 59 mmHg (38-42) Pressure CO2 Arterial Blood Partial 80 mmHg Pressure O2 (61-120) Arterial Blood Oxygen Content 15.4 Vol % (12.0-20.0) Arterial Blood 1.0 % (0-4) Carboxyhemoglobin Arterial Blood Methemoglobin 0.8 % (0-2) Blood Gas Hemoglobin 11.9 G/DL (12.0-16.0) Oxygen Delivery Device VENTI MASK Blood Gas Inspired Oxygen 50 % Imaging Last 24 hours Impressions Scrotum Ultrasound 12/28/16 1246 Signed Impressions: Service Date/Time: Wednesday, December 28, 2016 14:05 - CONCLUSION: 1. Marked thickening of the scrotal wall, up to 2.4 cm on the right. 2. Small complex left hydrocele. 3. Small complex cysts right testicle. Positive testicular blood flow. Nael Scott MD Abdomen/Pelvis CT 12/28/16 1237 Signed Impressions: Service Date/Time: Wednesday, December 28, 2016 14:52 - CONCLUSION: 1. 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 2. Mild bilateral inguinal adenopathy and marked scrotal wall thickening. 3. Fat-containing 5.7 cm umbilical hernia. 4. Atherosclerotic aorta with some displaced intimal calcifications but without significant aneurysm. No bowel obstruction. Mild ileus. Nael Scott MD Objective Remarks GENERAL: Comfortable. SKIN: Warm and dry. HEAD: Normocephalic. EYES: No scleral icterus. No injection or drainage. NECK: trachea midline.Supple. CARDIOVASCULAR: Regular rate and rhythm without murmurs, NL S1S2, ++ JVD RESPIRATORY: Diffuse crackles with light wheezes. Accessory muscle use. Labored GASTROINTESTINAL: Abdomen soft, non-tender, nondistended. BS active. MUSCULOSKELETAL: Warm, well perfused. EXTREMITIES: No clubbing cyanosis or edema : Packing which is clean and dry in the groin. A pimentel exits the penis. Neuro: Agitated, confused. Moves 4 limbs. 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 Clinically stable. likely stable for extubation today. Per urology, going back for repeat debridement tomorrow. Will continue clindamycin for another 24h until urology re-evaluates the wound and is confident there is no necrotic tissue remaining. Respiratory failure - currently on SBT. if he passes, will pursue extubation -> done. 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 - add 500mg dose of vancomycin (15mg/kg loading dose of vancomycin 1.5gm and patient received 1gm yesterday). Given GFR < 20, will hold off on additional vancomycin and consult pharmacy for dosing assistance. - ID consult for long-term follow-up. - f/u cultures. CHF - No exacerbation - Supportive care - Resume home medications when hemodynamically stable Diabetes - Insulin sliding scale Acute on Chronic kidney disease - Strict I's and O's - Aggressive IV fluid hydration - Monitor electrolytes and creatinine DVT GI prophylaxis - Subcutaneous heparin and Pepcid Overall impression: Severe respiratory deterioration and hypoxemic respiratory failure. Critically ill and will require intubation and ventilator. Critical care 40 mins aside from procedures. Roshan Carlos MD Dec 31, 2016 11:12
--- NOTE | 2016-12-31 11:21 | HHI.PR ---
Subjective Patient symptoms today Pt seen and examined. Events noted. Objective Vital Signs Vital Signs Date Time Temp Pulse Resp B/P Pulse Ox O2 Delivery O2 Flow Rate FiO2 12/31/16 09:20 94 50 12/31/16 08:50 Venturi Mask 6.00 50 12/31/16 08:00 96.4 83 20 143/80 93 12/31/16 08:00 88 Venturi Mask 35 12/31/16 04:00 96.5 85 19 148/71 91 12/31/16 00:00 97.7 65 20 169/72 96 12/30/16 20:00 98.2 79 20 147/70 97 12/30/16 16:00 Nasal Cannula 4.00 12/30/16 16:00 93 Nasal Cannula 4.00 12/30/16 15:47 96.5 76 17 136/84 93 12/30/16 15:00 97.8 72 14 111/57 94 Nasal Cannula 4 12/30/16 14:45 71 13 105/51 95 Nasal Cannula 4 12/30/16 14:30 80 14 103/79 93 Simple Mask 6 12/30/16 14:15 79 12 123/67 93 Non-Rebreather 15 12/30/16 14:00 82 14 134/76 95 Non-Rebreather 15 12/30/16 13:45 97 15 134/78 92 12/30/16 13:34 97.6 107 16 118/45 82 T-Piece 10 Intake & Output 12/31/16 12/31/16 07:00 19:00 Intake Total 660 ml Output Total 600 ml 150 ml Balance 60 ml -150 ml Intake Oral 360 ml IV Total 300 ml Output Urine Total 600 ml 150 ml # Bowel Movements 0 Result Diagram: 12/31/16 0356 12/31/16 0356 Imaging Last 24 hours Impressions Chest X-Ray 12/31/16 0000 Signed Impressions: Service Date/Time: Saturday, December 31, 2016 09:01 - CONCLUSION: Chronic cardiac silhouette enlargement and mild bilateral lower lung zone opacity. Differential diagnosis includes mild pulmonary edema and atelectasis. Possible small right pleural effusion. Gabe Landers MD Objective Remarks Abd:soft,nt,nd Capps: urine clear Wound: moderate drainage noted. Scrotal erythema improved. 12/30 Abd:soft,nt,nd Capps with clear urine Scrotal erythema improved. 12/31 Abd:soft,nt,nd Capps with clear urine Dressings in place. Ext: neg C/C/E Medications and IVs Current Medications Medications (Trade) Dose Ordered Sig/Abdiel Route Start Time Stop Time Status Last Admin (NS Flush) 2 ml UNSCH PRN .XX 12/28/16 20:15 (NS Flush) 2 ml BID .XX 12/28/16 21:00 12/31/16 09:00 (Tylenol) 650 mg Q6H PRN PO 12/28/16 20:15 12/29/16 13:42 (Tears Naturale Opth Soln) 1 drop TID EACH EYE 12/29/16 09:00 (Zofran Inj) 4 mg Q6H PRN IV 12/28/16 20:15 (Colace Liq) 100 mg Q12H G-TUBE 12/28/16 21:00 12/29/16 20:48 (Heparin Inj) 5,000 units Q8H SQ 12/28/16 22:00 12/31/16 04:47 Miscellaneous Information 1 Q361D XX 12/28/16 20:15 12/29/16 00:29 (Chlorhexidine 2% Cloth) 3 pack Taper DAILY@04 TOP 12/29/16 04:00 12/25/17 03:59 12/29/16 02:53 (Chlorhexidine 2% Cloth) 3 pack UNSCH PRN TOP 12/28/16 20:15 (D50w (Vial) Inj) 25 ml UNSCH PRN IV PUSH 12/29/16 07:15 (Roxicodone) 5 mg Q4H PRN PO 12/29/16 15:00 12/29/16 18:46 Hydromorphone HCl 0.5 mg 0.5 mg Q4H PRN IV PUSH 12/29/16 15:00 12/30/16 09:32 (Unasyn Inj/NS Inj) 100 ml @ 200 mls/hr Q12H IV 12/30/16 21:00 12/31/16 09:37 (Lipitor) 40 mg HS PO 12/30/16 21:00 12/30/16 21:55 (Coreg) 50 mg BID PO 12/30/16 21:00 12/30/16 21:56 (Aldactone) 12.5 mg DAILY PO 12/31/16 09:00 (Pill Splitter) 1 ea UNSCH PRN OTHER 12/30/16 12:15 Miscellaneous Information ALL NURSING DEPARTME... 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 Patient will require IR intervention for debridement with washout. Risk and benefits discussed and patient is willing to proceed. 12/29 71 y.o male s/p debridement and washout of necrotizing fascitis Will plan to return to OR tomorrow for washout NPO after MN 12/30 71 y.o. male s/p debridement with washout of necrotizing fascitis OR today for washout. NPO 12/31 71 y.o. male s/p debridement with washout of necrotizing fascitis For washout with closure tomorrow in OR. NPO Tim Lign DO Dec 31, 2016 11:21
[2016-12-31] MEDS ORDERED: PROPOFOL 1000 MG/100 ML INJ 100 ML ONE ×2 (11:39→15:00)
[2016-12-31] MEDS ORDERED: CLINDAMYCIN 150 MG CAP PO SCH (12:00)
--- NOTE | 2016-12-31 12:20 | PD.PROCEDR ---
Procedure Note Procedure DX: Acute on chronic systolic heart failure, hypoxemic Respiratory Failure ( J96.01), STEFFEN (N17.9) OP: 1. Orotracheal intubation (73817) 2. Insertion Right Subclavian Central Line (04049) 3. Insertion Radial Artery Line (39760) Procedure: Bag mask ventilation. Versed 5 mg and rocuronium 100 mg iv. Intubated orally with 8.0 tube. Position confirmed with CO2 detection, breath sounds, sats 100%. Right chest prepped and draped. Right subclavian vein cannulated and wire easily advanced. Catheter passed over wire to 18 cm. Lumens aspirated and flushed. Dressing applied. Allent test intact right hand. Wrist supinated, prepped and draped. Right radial artery cannulated with 20 guage needle and wire advanced. Cannula passed over wire to 3 cm. Good waveform observed. Dressing applied. Circulation intact to right hand after procedure. CXR ordered for tube and line, will review. Roshan Carlos MD Dec 31, 2016 12:20
[2016-12-31] MEDS: RESP: ALBUTEROL 2.5 MG/IPRATROPIUM 0.5 MG NEB (SCH) NEB ×3 (12:44→23:46)
--- NOTE | 2016-12-31 13:33 | RADRPT ---
EXAM DATE/TIME: 12/31/2016 12:16 [facility] COMPARISON: CHEST SINGLE AP, December 31, 2016, 9:01. INDICATIONS : Post intubation and central line placement MEDICAL HISTORY : Diabetes mellitus type II. Cardiovascular disease. Hypertension. SURGICAL HISTORY : CABG. Pacemaker. ENCOUNTER: Subsequent ACUITY: 3 days PAIN SCORE: Non-responsive. LOCATION: Bilateral chest FINDINGS: Single AP view of the chest. Endotracheal tube is in place with the tip 3 cm above the owen. Nasoga stric tube is in place with the tip below the field of view of the radiograph. Right subclavian centr al venous catheter is in place with the tip in the region of the distal superior vena cava. Cardiac p acemaker is again seen. Cardiac silhouette enlargement unchanged. Mild hazy opacity at the lung bases unchanged. No evidence of pneumothorax. CONCLUSION: Lines and tubes now in place. Mild bilateral lower lung zone opacity suggesting mild pulmonary edema and possible small pleural effusions. Chronic cardiac silhouette enlargement. Gabe Landers MD on December 31, 2016 at 13:30 Board Certified Radiologist. This report was verified electronically.
[2016-12-31] MEDS: MILRINONE INJ 20 MG in SODIUM CHLORIDE 0.9% INJ 80 ML IV SCH ×2 (15:08→20:09)
[2016-12-31 15:55] LABS: BLOOD GAS BASE EXCESS -7.7 mmol/L (-2-2); BLOOD GAS HCO3 19 mmol/L (22-26); BLOOD GAS METHEMOGLOBIN 0.7 % (0-2); BLOOD GAS O2 HGB SATURATION 90 % (90-100); BLOOD GAS OXYGEN CONTENT 14.8 Vol % (12.0-20.0); BLOOD GAS PCO2 47 mmHg (38-42); BLOOD GAS PO2 72 mmHg (61-120); BLOOD GAS TOTAL HGB 11.6 G/DL (12.0-16.0); CRITICAL VALUE YES; DRAW SITE ART LINE; FIO2 40 %; NUMBER OF ARTERIAL PUNCTURES 0; OXYGEN DEVICE VENTILATOR; STAT NO; TEMP CORR TO 98.6; ULNAR PULSE PRESENT; VENT SETTINGS AC14/550/PEEP5
--- NOTE | 2016-12-31 16:49 | HHI.PR ---
Subjective Remarks f/u for Acute respiratory failure. Patient seen at 8:30 AM. Nurse and charge nurse at bedside. patient after surgery increase SOB requiring venti mask and still labor breathing. patient becoming more lethargic. patient too lethargic to answer any questions from me. Objective Vitals Vital Signs Date Time Temp Pulse Resp B/P Pulse Ox O2 Delivery O2 Flow Rate FiO2 12/31/16 16:00 73 12/31/16 16:00 97.8 73 16 113/42 95 12/31/16 15:38 92 40 12/31/16 12:00 98.2 84 14 140/63 94 12/31/16 11:40 96 40 12/31/16 10:55 98 40 12/31/16 09:20 94 50 12/31/16 08:50 Venturi Mask 6.00 50 12/31/16 08:00 96.4 83 20 143/80 93 12/31/16 08:00 88 Venturi Mask 35 12/31/16 04:00 96.5 85 19 148/71 91 12/31/16 00:00 97.7 65 20 169/72 96 12/30/16 20:00 98.2 79 20 147/70 97 I/O 12/30/16 12/30/16 12/30/16 12/31/16 12/31/16 12/31/16 07:00 15:00 23:00 07:00 15:00 23:00 Intake Total 1258 ml 540 ml 120 ml 53 ml Output Total 107 ml 190 ml 350 ml 250 ml 500 ml Balance -107 ml 1068 ml 190 ml -130 ml -447 ml Intake Oral 0 ml 240 ml 120 ml IV Total 758 ml 300 ml 53 ml Other 500 ml Output Urine Total 107 ml 185 ml 350 ml 250 ml 500 ml Stool Total 0 ml Estimated Blood Loss 5 ml # Bowel Movements 2 0 0 Result Diagram: 12/31/16 0356 12/31/16 0356 Objective Remarks GENERAL: in respiratory distress on venti mask. CARDIOVASCULAR: Regular rate and rhythm without murmurs, gallops, or rubs. RESPIRATORY: diffused exp wheezing with labor breathing. GASTROINTESTINAL: Abdomen soft, non-tender, nondistended. NEURO: lethargic. Medications and IVs Current Medications Sodium Chloride (NS 1000 ml Inj) 1,000 ml @ 1,000 mls/hr Q1H IV Last administered on 12/28/16 13:15; Start 12/28/16 at 12:37; Stop 12/28/16 at 13:36 ; Status DC Sodium Chloride 2 ml 2 ml UNSCH PRN IV FLUSH FLUSH AFTER USING IV ACCESS; Start 12/28/16 at 12:45; Stop 12/28/16 at 20:21; Status DC Ampicillin Sodium/ Sulbactam Sodium/ Sodium Chloride (Unasyn Inj/NS Inj) 100 ml @ 200 mls/hr ONCE ONCE IV Last administered on 12/28/16 13:16; Start at 13:00; Stop 12/28/16 at 13:29; Status DC Clindamycin Phosphate 900 mg 900 mg ONCE ONCE IM ; Start 12/28/16 at 13:00; Stop 12/28/16 at 15:56; Status DC Sodium Chloride 1,000 ml @ 999 mls/hr BOLUS ONCE IV ; Start 12/28/16 at 13:00 ; Stop 12/28/16 at 14:00; Status DC Sodium Chloride 1,000 ml @ 999 mls/hr BOLUS ONCE IV Last administered on 12/28 15:38; Start 12/28/16 at 14:30; Stop 12/28/16 at 15:30; Status DC Clindamycin Phosphate/Sodium Chloride (Cleocin Inj/NS Inj) 106 ml @ 212 mls/hr ONCE ONCE IV ; Start 12/28/16 at 16:00; Stop 12/28/16 at 16:29; Status DC Vancomycin HCl (Vancomycin Inj) 1,000 mg STK-MED ONCE .ROUTE Last administered on 12/28/16 18:05; Start 12/28/16 at 16:45; Stop 12/28/16 at 16:46; Status DC Lidocaine/ Epinephrine 40 ml 40 ml STK-MED ONCE .ROUTE Last administered on 18:55; Start 12/28/16 at 18:41; Stop 12/28/16 at 18:42; Status DC Propofol 100 ml @ As Directed STK-MED ONCE .ROUTE ; Start 12/28/16 at 19:10; Stop 12/28/16 at 19:11; Status DC Propofol 100 ml @ 0 mls/hr TITRATE IV ; Start 12/28/16 at 20:00; Stop 12/28/16 at 20:20; Status DC Lactated Ringer's (Lr 1000 ml Inj) 1,000 ml @ 50 mls/hr Q20H IV Last administered on 12/28/16 20:00; Start 12/28/16 at 19:45; Stop 12/28/16 at 20:26 ; Status DC Ampicillin Sodium/ Sulbactam Sodium 1500 mg 1,500 mg Q6H IM ; Start 12/28/16 at 19:45; Stop 12/28/16 at 19:52; Status DC Clindamycin Phosphate/Sodium Chloride (Cleocin Inj/NS Inj) 104 ml @ 208 mls/hr Q6H IV ; Start 12/28/16 at 20:00; Stop 12/28/16 at 20:28; Status DC Ondansetron HCl (Zofran Inj) 4 mg Q6H PRN IV PUSH nausea; Start 12/28/16 at 19: 45; Stop 12/28/16 at 20:24; Status DC Pantoprazole Sodium 40 mg 40 mg Q24H IV PUSH ; Start 12/28/16 at 21:00; Stop at 21:00; Status DC Ampicillin Sodium/ Sulbactam Sodium 1500 mg/Sodium Chloride 100 ml @ 200 mls/ hr Q6H IV Last administered on 12/30/16 08:29; Start 12/28/16 at 20:00; Stop 12/30/16 at 10:47; Status DC Sodium Chloride (NS 1000 ml Inj) 1,000 ml @ 150 mls/hr Q6H40M IV Last administered on 12/30/16 11:51; Start 12/28/16 at 21:00; Stop 12/30/16 at 17:23 ; Status DC Sodium Chloride (NS Flush) 2 ml UNSCH PRN .XX FLUSH AFTER USING IV ACCESS; Start 12/28/16 at 20:15 Sodium Chloride (NS Flush) 2 ml BID .XX Last administered on 12/31/16 20:11; Start 12/28/16 at 21:00 Acetaminophen (Tylenol) 650 mg Q6H PRN PO FEVER >101F Last administered on 12/29 13:42; Start 12/28/16 at 20:15 Morphine Sulfate (Morphine Inj) 2 mg Q2H PRN IV SEE LABEL COMMENTS Last administered on 12/29/16 14:19; Start 12/28/16 at 20:15; Stop 12/29/16 at 14:47 ; Status DC Famotidine (Pepcid Inj) 10 mg Q12HR IV PUSH Last administered on 12/29/16 10: 06; Start 12/28/16 at 21:00; Stop 12/29/16 at 14:30; Status DC Lorazepam (Ativan Inj) 1 mg Q1H PRN IV Agitation/Sedation; Start 12/28/16 at 20 :15; Stop 12/30/16 at 16:12; Status DC Artificial Tears (Tears Naturale Opth Soln) 1 drop TID EACH EYE Last administered on 12/31/16 18:40; Start 12/29/16 at 09:00 Ondansetron HCl (Zofran Inj) 4 mg Q6H PRN IV NAUSEA OR VOMITING; Start at 20:15 Metoclopramide HCl (Reglan Inj) 5 mg Q6H PRN IV NAUSEA OR VOMITING; Start 12/28 at 20:15; Stop 12/29/16 at 14:30; Status DC Docusate Sodium (Colace Liq) 100 mg Q12H G-TUBE Last administered on 12/31/16 20:10; Start 12/28/16 at 21:00 Albuterol/ Ipratropium (Duoneb Neb) 1 ampule Q2HR NEB PRN INH WHEEZING Last administered on 12/31/16 07:50; Start 12/28/16 at 20:15 Heparin Sodium (Porcine) (Heparin Inj) 5,000 units Q8H SQ Last administered on 12/31/16 15:09; Start 12/28/16 at 22:00 Miscellaneous Information 1 Q361D XX Last administered on 12/29/16 00:29; Start 12/28/16 at 20:15 Chlorhexidine Gluconate (Chlorhexidine 2% Cloth) 3 pack Taper DAILY@04 TOP Last administered on 12/29/16 02:53; Start 12/29/16 at 04:00; Stop 12/25/17 at 03:59 Chlorhexidine Gluconate 3 pack 3 pack UNSCH PRN TOP HYGIENIC CARE; Start at 20:15 Propofol 100 ml @ 0 mls/hr TITRATE IV ; Start 12/28/16 at 20:15; Stop 12/29/16 at 14:30; Status DC Fentanyl Citrate (fentaNYL DRIP) 250 ml @ 0 mls/hr TITRATE IV Last administered on 12/28/16 22:50; Start 12/28/16 at 20:15; Stop 12/29/16 at 14:30 ; Status DC Albumin Human 25 gm 25 gm ONCE ONCE IV Last administered on 12/28/16 20:20; Start 12/28/16 at 20:15; Stop 12/28/16 at 20:16; Status DC Clindamycin Phosphate/Sodium Chloride (Cleocin Inj/NS Inj) 104 ml @ 208 mls/hr Q8H IV Last administered on 12/30/16 23:44; Start 12/29/16 at 00:00; Stop at 07:57; Status DC Miscellaneous Information ALL NURSING DEPARTME... UNSCH PRN XX SEE LABEL COMMENTS; Start 12/28/16 at 20:45; Stop 12/29/16 at 20:44; Status DC Meropenem 1000 mg/ Sodium Chloride 100 ml @ 200 mls/hr Q12H IV Last administered on 12/29/16 00:28; Start 12/28/16 at 22:00; Stop 12/29/16 at 07:13 ; Status DC Sodium Chloride 999 ml @ 0 mls/hr BOLUS ONCE IV Last administered on 04:35; Start 12/28/16 at 23:30; Stop 12/29/16 at 04:33; Status DC Sodium Chloride 999 ml @ 0 mls/hr BOLUS ONCE IV Last administered on 06:47; Start 12/29/16 at 05:00; Stop 12/29/16 at 06:04; Status DC Pharmacy Profile Note 0 ml @ 0 mls/hr UNSCH OTHER ; Start 12/29/16 at 07:15; Stop 12/29/16 at 16:28; Status DC Vancomycin HCl/ Sodium Chloride (Vancomycin Inj/ NS Inj) 100 ml @ 200 mls/hr ONCE ONCE IV ; Start 12/29/16 at 09:00; Stop 12/29/16 at 09:29; Status Cancel Magnesium Oxide 800 mg 800 mg UNSCH PRN PO For Magnesium 1.2 - 1.6 mg/dL; Start 12/29/16 at 07:15; Stop 12/29/16 at 07:56; Status DC Magnesium Sulfate 4 gm/Sodium Chloride 100 ml @ 50 mls/hr UNSCH PRN IV For Magnesium 0.9 - 1.1 mg/dL; Start 12/29/16 at 07:15; Stop 12/29/16 at 07:56; Status DC Magnesium Sulfate 2 gm/Sodium Chloride 100 ml @ 50 mls/hr UNSCH PRN IV For Magnesium 1.2 - 1.6 mg/dL; Start 12/29/16 at 07:15; Stop 12/29/16 at 07:56; Status DC Potassium Chloride 100 ml @ 50 mls/hr Q2H PRN IV For Potassium 2.8 - 3.2 mEq/L ; Start 12/29/16 at 07:15; Stop 12/29/16 at 07:56; Status DC Potassium Chloride 100 ml @ 50 mls/hr Q2H PRN IV For Potassium 3.3 - 3.5 mEq/L ; Start 12/29/16 at 07:15; Stop 12/29/16 at 07:56; Status DC Potassium Chloride 100 ml @ 50 mls/hr Q2H PRN IV For Potassium 2.8 - 3.2 mEq/L ; Start 12/29/16 at 07:15; Stop 12/29/16 at 07:56; Status DC Potassium Chloride (KCl 40 Meq Premix Inj) 100 ml @ 25 mls/hr UNSCH PRN IV For Potassium 3.3 - 3.5 mEq/L; Start 12/29/16 at 07:15; Stop 12/29/16 at 07:56; Status DC Potassium Phosphate (K-Phos) 2,000 mg Q4H PRN PO For Phosphorus < 2.5 mg/dL; Start 12/29/16 at 07:15; Stop 12/29/16 at 07:56; Status DC Potassium Phosphate 2000 mg 2,000 mg UNSCH PRN PO/TUBE SEE LABEL COMMENTS; Start 12/29/16 at 07:15; Stop 12/29/16 at 07:56; Status DC Potassium Phosphate 30 mmol/ Sodium Chloride 260 ml @ 42 mls/hr UNSCH PRN IV SEE LABEL COMMENTS; Start 12/29/16 at 07:15; Stop 12/29/16 at 07:56; Status DC Sodium Phosphate/ Sodium Chloride (Sodium Phosphate Inj/NS 250 ml Inj) 250 ml @ 42 mls/hr UNSCH PRN IV For Phosphorus < 2.5 mg/dL; Start 12/29/16 at 07:15; Stop 12/29/16 at 07:56; Status DC Dextrose (D50w (Vial) Inj) 25 ml UNSCH PRN IV PUSH HYPOGLYCEMIA-SEE COMMENTS; Start 12/29/16 at 07:15 Insulin Human Regular 1 1 ACHS AND 3AM SQ Last administered on 12/29/16 21:39 ; Start 12/29/16 at 11:00 Vancomycin HCl/ Sodium Chloride (Vancomycin Inj/ NS Inj) 100 ml @ 200 mls/hr ONCE ONCE IV Last administered on 12/29/16 11:25; Start 12/29/16 at 10:30; Stop 12/29/16 at 16:28; Status DC Famotidine (Pepcid) 20 mg BID PO Last administered on 12/30/16 21:55; Start at 21:00; Stop 12/31/16 at 11:04; Status DC Oxycodone HCl (Roxicodone) 5 mg Q4H PRN PO SEE LABEL COMMENTS Last administered on 12/29/16 18:46; Start 12/29/16 at 15:00 Hydromorphone HCl 0.5 mg 0.5 mg Q4H PRN IV PUSH SEE LABEL COMMENTS Last administered on 12/30/16 09:32; Start 12/29/16 at 15:00 Ampicillin Sodium/ Sulbactam Sodium/ Sodium Chloride (Unasyn Inj/NS Inj) 100 ml @ 200 mls/hr Q12H IV Last administered on 12/31/16 20:09; Start 12/30/16 at 21:00 Atorvastatin Calcium (Lipitor) 40 mg HS PO Last administered on 12/31/16 20:10 ; Start 12/30/16 at 21:00 Carvedilol (Coreg) 50 mg BID PO Last administered on 12/31/16 20:14; Start at 21:00 Furosemide (Lasix) 60 mg BID PO ; Start 12/30/16 at 21:00; Stop 12/31/16 at 09: 20; Status DC Spironolactone (Aldactone) 12.5 mg DAILY PO ; Start 12/31/16 at 09:00 Miscellaneous (Pill Splitter) 1 ea UNSCH PRN OTHER SEE LABEL COMMENTS; Start at 12:15 Cefazolin Sodium (Ancef Inj) 2,000 mg STK-MED ONCE .ROUTE Last administered on 12/30/16 12:51; Start 12/30/16 at 12:26; Stop 12/30/16 at 12:27; Status DC Vancomycin HCl (Vancomycin Inj) 1,000 mg STK-MED ONCE .ROUTE Last administered on 12/30/16 12:52; Start 12/30/16 at 12:39; Stop 12/30/16 at 12:40; Status DC Midazolam HCl (Versed Inj) 2 mg STK-MED ONCE .ROUTE ; Start 12/30/16 at 12:43; Stop 12/30/16 at 12:44; Status DC Fentanyl Citrate (fentaNYL INJ) 250 mcg STK-MED ONCE .ROUTE ; Start 12/30/16 at 12:43; Stop 12/30/16 at 12:44; Status DC Sugammadex Sodium (Bridion Inj) 400 mg STK-MED ONCE IV PUSH ; Start 12/30/16 at 12:43; Stop 12/30/16 at 12:44; Status DC Sugammadex Sodium (Bridion Inj) 200 mg STK-MED ONCE IV PUSH ; Start 12/30/16 at 13:23; Stop 12/30/16 at 13:24; Status DC Albuterol Sulfate (*ALBUTEROL NEB PERIprocedure ONLY) 2.5 mg STK-MED ONCE NEB Last administered on 12/30/16 13:40; Start 12/30/16 at 13:40; Stop 12/30/16 at 13:41; Status DC Miscellaneous Information ALL NURSING DEPARTME... UNSCH PRN XX SEE LABEL COMMENTS; Start 12/30/16 at 13:55; Stop 12/31/16 at 13:54; Status DC Furosemide 100 mg 100 mg ONCE ONCE IV PUSH Last administered on 12/30/16 17: 42; Start 12/30/16 at 17:30; Stop 12/30/16 at 17:31; Status DC Magnesium Sulfate/ Dextrose 100 ml @ 100 mls/hr Q1H IV Last administered on 18:34; Start 12/30/16 at 18:00; Stop 12/30/16 at 19:59; Status DC Potassium Chloride (KCl 20 Meq Premix Inj) 100 ml @ 50 mls/hr BOLUS ONCE IV Last administered on 12/30/16 17:42; Start 12/30/16 at 17:30; Stop 12/30/16 at 19:29; Status DC Haloperidol Lactate (Haldol Inj) 5 mg ONCE ONCE IM Last administered on 00:16; Start 12/31/16 at 00:15; Stop 12/31/16 at 00:16; Status DC Lorazepam (Ativan Inj) 2 mg ONCE ONCE IM Last administered on 12/31/16 00:16 ; Start 12/31/16 at 00:15; Stop 12/31/16 at 00:16; Status DC Lorazepam (Ativan Inj) 2 mg STK-MED ONCE .ROUTE ; Start 12/31/16 at 00:13; Stop 12/31/16 at 00:14; Status DC Diphenhydramine HCl (Benadryl Inj) 50 mg ONCE ONCE IM ; Start 12/31/16 at 01:00 ; Stop 12/31/16 at 01:01; Status DC Clindamycin HCl (Cleocin) 300 mg Q6HR PO ; Start 12/31/16 at 12:00; Stop at 16:00; Status DC Methylprednisolone Sodium Succinate (SoluMEDROL INJ) 60 mg Q6H IV PUSH Last administered on 12/31/16 15:10; Start 12/31/16 at 10:00 Albuterol/ Ipratropium (Duoneb Neb) 1 ampule Q4HR NEB NEB Last administered on 12/31/16 19:27; Start 12/31/16 at 08:45 Furosemide (Lasix Inj) 40 mg BID@09,18 IV PUSH ; Start 12/31/16 at 09:00 Furosemide (Lasix Inj) 100 mg NOW ONCE IV PUSH Last administered on 12/31/16 09:40; Start 12/31/16 at 09:30; Stop 12/31/16 at 09:31; Status DC Midazolam HCl (Versed Inj) 10 mg STK-MED ONCE .ROUTE Last administered on 18:10; Start 12/31/16 at 09:59; Stop 12/31/16 at 10:00; Status DC Rocuronium [place] 100 mg 100 mg STK-MED ONCE .ROUTE Last administered on 18:09; Start 12/31/16 at 09:59; Stop 12/31/16 at 10:00; Status DC Dexmedetomidine HCl (Precedex Inj) 50 ml @ 0 mls/hr TITRATE IV Last administered on 12/31/16 11:06; Start 12/31/16 at 11:00 Famotidine (Pepcid) 10 mg BID PO Last administered on 12/31/16 20:10; Start at 21:00 Rocuronium [place] 100 mg 100 mg STK-MED ONCE .ROUTE ; Start 12/31/16 at 11:20; Stop 12/31/16 at 11:21; Status DC Propofol 100 ml @ As Directed STK-MED ONCE .ROUTE Last administered on 15:16; Start 12/31/16 at 11:39; Stop 12/31/16 at 11:40; Status DC Milrinone Lactate 20 mg/Sodium Chloride 100 ml @ 12.31 mls/ hr Q8H8M IV Last administered on 12/31/16 20:09; Start 12/31/16 at 13:00 Propofol (Diprivan 1000 Mg/100ml Inj) 100 ml @ As Directed STK-MED ONCE .ROUTE Last administered on 12/31/16 15:17; Start 12/31/16 at 15:00; Stop 12/31/16 at 15:01; Status DC Chlorhexidine Gluconate 15 ml 15 ml BID@08,20 MT Last administered on 20:11; Start 12/31/16 at 20:00 Propofol (Diprivan 1000 Mg/100ml Inj) 100 ml @ 0 mls/hr TITRATE IV Last administered on 12/31/16 18:40; Start 12/31/16 at 16:00 Clindamycin HCl (Cleocin) 300 mg Q6HR NG Last administered on 12/31/16 18:39; Start 12/31/16 at 18:00; Stop 01/02/17 at 11:59 Sodium Bicarbonate (Sodium Bicarbonate 8.4% Inj) 100 meq STK-MED ONCE .ROUTE ; Start 12/31/16 at 17:20; Stop 12/31/16 at 17:21; Status DC Sodium Bicarbonate 100 meq 100 meq ONCE ONCE IV PUSH Last administered on 12/31 18:09; Start 12/31/16 at 17:45; Stop 12/31/16 at 17:57; Status DC Sodium Bicarbonate/ Sterile Water (Sodium Bicarbonate 8.4% Inj/Sterile Water For Inj) 1,000 ml @ 75 mls/hr [id number] IV Last administered on 12/31/16 18:41 ; Start 12/31/16 at 20:00 A/P Problem List: (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 Acute Respiratory failure with hypoxia - patient recently extubated and transfer out of ICU yesterday. -After surgery resp status worsened and he continues to decline. -patient is too lethargic so unable to protect airway. May need to be intubated again. -stat ABG, CXR, lasix IV and solumedrol IV for wheezing. -d/w Dr. Thomas for patient to be transfer back to [facility] under his care. Dr. Thomas agreed. 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 - add 500mg dose of vancomycin (15mg/kg loading dose of vancomycin 1.5gm and patient received 1gm yesterday). Given GFR < 20, will hold off on additional vancomycin and consult pharmacy for dosing assistance. - ID consult for long-term follow-up. - f/u cultures. CHF - unsure exacerbation. Patient does have diffuse wheezing. stat CXR obtained. - Supportive care - Resume home medications when hemodynamically stable Diabetes - Insulin sliding scale Acute on Chronic kidney disease - Strict I's and O's - Aggressive IV fluid hydration - Monitor electrolytes and creatinine DVT GI prophylaxis - Subcutaneous heparin and Pepcid Discharge Planning d/w Dr. Thomas transfer back to [facility] under his care. Reva Toney MD Dec 31, 2016 16:49
[2016-12-31] MEDS ORDERED: SODIUM BICARBONATE 8.4% INJ 50 MEQ/50 ML SYR ONE (17:20)
[2016-12-31] MEDS ORDERED: SODIUM BICARBONATE 8.4% INJ 50 MEQ/50 ML SYR IV PUSH ONE (17:45)
[2016-12-31] MEDS: CLINDAMYCIN 150 MG CAP NG SCH (18:39)
[2016-12-31] MEDS: PROPOFOL 1000 MG/100 ML INJ 100 ML IV SCH (18:40)
[2016-12-31] MEDS: SODIUM BICARBONATE 8.4% INJ 150 MEQ in WATER STERILE FOR INJ 850 ML IV SCH (18:41)
[2016-12-31] MEDS: ATORVASTATIN 40 MG TAB PO SCH (20:10)
[2016-12-31] MEDS: CHLORHEXIDINE 0.12% (ORAL KIT) 15 ML CUP MT SCH (20:11)
[2017-01-01] VITALS (20 sets, daily range): BP systolic 123–185; BP diastolic 46–70; PULSE 73–106; RESP 16–24; TEMP 97.7–98.3; O2SAT 91–100
[2017-01-01] MEDS: CLINDAMYCIN 150 MG CAP NG SCH ×4 (00:18→18:23)
[2017-01-01] MEDS: INSULIN NovoLIN REGULAR SUPPLEMENTAL SCALE SQ SCH ×5 (03:01→20:08)
[2017-01-01] MEDS: methylPREDNISolone SOD SUCC 125 MG/2 ML VIAL IV PUSH SCH ×4 (03:01→20:41)
[2017-01-01] MEDS: RESP: ALBUTEROL 2.5 MG/IPRATROPIUM 0.5 MG NEB (SCH) NEB ×6 (03:10→23:07)
[2017-01-01] MEDS: CHLORHEXIDINE GLUCONATE 2 % 1 PACK (2 CLOTHS) TOP SCH (04:00)
[2017-01-01 04:18] LABS: BLOOD GAS BASE EXCESS -7.8 mmol/L (-2-2); BLOOD GAS CARBOXYHEMOGLOBIN 1.1 % (0-4); BLOOD GAS HCO3 17 mmol/L (22-26); BLOOD GAS METHEMOGLOBIN 0.8 % (0-2); BLOOD GAS O2 HGB SATURATION 91 % (90-100); BLOOD GAS OXYGEN CONTENT 13.6 Vol % (12.0-20.0); BLOOD GAS PCO2 34 mmHg (38-42); BLOOD GAS PO2 74 mmHg (61-120); BLOOD GAS TOTAL HGB 10.6 G/DL (12.0-16.0); CRITICAL VALUE NO; OXYGEN DEVICE VENTILATOR; TEMP CORR TO 98.6
[2017-01-01 04:19] LABS: DRAW SITE ART LINE; FIO2 40 %; STAT NO; VENT SETTINGS PRVC/AC
[2017-01-01] MEDS: PROPOFOL 1000 MG/100 ML INJ 100 ML IV SCH ×4 (04:21→20:42)
[2017-01-01] MEDS: SODIUM BICARBONATE 8.4% INJ 150 MEQ in WATER STERILE FOR INJ 850 ML IV SCH ×2 (04:22→18:35)
[2017-01-01] MEDS: MILRINONE INJ 20 MG in SODIUM CHLORIDE 0.9% INJ 80 ML IV SCH (04:22)
[2017-01-01 04:41] LABS: HEMATOCRIT 34.6 % (39.0-51.0); MEAN CELL VOLUME 82.9 FL (80.0-100.0); MEAN CORPUSCULAR HEMOGLOBIN 27.6 PG (27.0-34.0); MEAN CORPUSCULAR HGB CONC 33.2 % (32.0-36.0); PLATELET COUNT 190 TH/MM3 (150-450); RED BLOOD COUNT 4.18 MIL/MM3 (4.50-5.90); RED CELL DISTRIBUTION WIDTH 19.3 % (11.6-17.2); REVIEW FLAG FINAL
[2017-01-01 04:58] LABS: BICARBONATE 21.8 MEQ/L (21.0-32.0)
[2017-01-01] MEDS: HEPARIN SODIUM - SQ 10,000 UNITS/ML VIAL SQ SCH ×3 (06:00→20:41)
--- NOTE | 2017-01-01 07:22 | HHI.CCPN ---
Subjective Remarks/Hospital Course 71-year-old male presents for evaluation of testicular swelling. Approximately 10 days ago he was started on Aldactone for his blood pressure which. He also noted that her sugars has been slightly elevated. Denies any fevers. He has been feeling generally weak as well. Denied abdominal pain nausea vomiting or diarrhea. He thought the scrotal swelling was from the Aldactone and came into the emergency department to be evaluated. 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 remains intubated overnight. off vasopressors. 12/30: Much more comfortable. Back to OR for washout today. Breathing without distress. STEFFEN improving. Patient has dilated cardiomyopathy with severe systolic heart failure and EF 25-30% by last ECHO 2013. May need low-dose inotrope during course of therapy. 12/30 1800 hrs: Seen after OR today. He has full neck veins and light wheezes with basilar crackles. His underlying LV dysfunction requires that we treat this aggressively with diuretics and subsequent electrolyte replacement. Will move back to [facility]. 12/31: Required rapid response for 2nd time in 12 hours. Will need intubation due to severe systolic heart failure and pulmonary edema. Subjective: 01/01: Afebrile. Remains nothing by mouth for planned washout today. Decreased urine output noted. Hypertensive with sedation vacation. Objective Vital Signs Date Time Temp Pulse Resp B/P Pulse Ox O2 Delivery O2 Flow Rate FiO2 01/01/17 06:00 97 01/01/17 04:15 164/66 01/01/17 04:00 40 01/01/17 04:00 92 01/01/17 04:00 98.2 20 12/31/16 20:00 Mechanical Ventilator 12/31/16 08:50 6.00 Intake and Output 12/31/16 12/31/16 01/01/17 08:00 16:00 00:00 Intake Total 120 ml 53 ml 506 ml Output Total 250 ml 500 ml 450 ml Balance -130 ml -447 ml 56 ml Result Diagram: 01/01/17 0405 01/01/17 0405 Other Results Microbiology Date/Time Procedure Status Source Growth 12/31/16 14:20 Gram Stain Received Sputum Endotracheal Pending 12/31/16 14:20 Sputum Culture Received Sputum Endotracheal Pending 12/28/16 18:35 Gram Stain - Final Complete Abscess Scrotum 12/28/16 18:35 Wound Culture - Final Complete Enterococcus Faecalis Staph Sp Coagulase Negative 12/28/16 18:35 Fungal Smear - Final Resulted Abscess Scrotum NO FUNGAL ELEMENTS SEEN. 12/28/16 18:35 Fungal Culture Resulted Abscess Scrotum Pending 12/28/16 18:35 Acid Fast Stain - Final Resulted Abscess Scrotum NO ACID FAST BACILLI SEEN 12/28/16 18:35 Mycobacterial Culture Resulted Abscess Scrotum Pending 12/28/16 13:15 Urine Culture - Final Complete Urine Random Urine Group A Beta Strep 12/28/16 12:50 Aerobic Blood Culture - Preliminary Resulted Blood Peripheral NO GROWTH IN 3 DAYS 12/28/16 12:50 Anaerobic Blood Culture - Preliminary Resulted Blood Peripheral NO GROWTH IN 3 DAYS 12/28/16 12:40 Aerobic Blood Culture Received Blood Peripheral Pending 12/28/16 12:40 Anaerobic Blood Culture Received Blood Peripheral Pending Imaging Last Impressions Chest X-Ray 12/31/16 0000 Signed Impressions: Service Date/Time: Saturday, December 31, 2016 12:16 - CONCLUSION: Lines and tubes now in place. Mild bilateral lower lung zone opacity suggesting mild pulmonary edema and possible small pleural effusions. Chronic cardiac silhouette enlargement. Gabe Landers MD Scrotum Ultrasound 12/28/16 1246 Signed Impressions: Service Date/Time: Wednesday, December 28, 2016 14:05 - CONCLUSION: 1. Marked thickening of the scrotal wall, up to 2.4 cm on the right. 2. Small complex left hydrocele. 3. Small complex cysts right testicle. Positive testicular blood flow. Nael Scott MD Abdomen/Pelvis CT 12/28/16 1237 Signed Impressions: Service Date/Time: Wednesday, December 28, 2016 14:52 - CONCLUSION: 1. 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 2. Mild bilateral inguinal adenopathy and marked scrotal wall thickening. 3. Fat-containing 5.7 cm umbilical hernia. 4. Atherosclerotic aorta with some displaced intimal calcifications but without significant aneurysm. No bowel obstruction. Mild ileus. Nael Scott MD Objective Remarks GENERAL: 71-year-old male, critically ill currently orotracheally intubated SKIN: Warm and dry. We'll perfused with no rash HEAD: Normocephalic. EYES: Pupils are 4 mm bilaterally and reactive. No scleral icterus. No injection or drainage. NECK: trachea midline.Supple. + JVD CARDIOVASCULAR: RRR. S1, S2 no S4. Without murmur RESPIRATORY: Diminished breath sounds due to body habitus. Few crackles patient bases bilaterally. GASTROINTESTINAL: Abdomen soft, non-tender, nondistended. Hypoactive bowel sounds appreciated MUSCULOSKELETAL: Currently with trace bilateral lower extremity pitting edema. Dorsalis pedis and posterior tibials are palpable bilaterally EXTREMITIES: No clubbing cyanosis or edema : Minimal scrotal edema. Packing which is clean and dry in the groin. A pimentel exits the penis meatus intact without blood. NEURO: Cranial nerves II through XII grossly intact. Moves all 4 extremities spontaneously. 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 Not on home medications for underlying psychiatric diagnosis. CV: Congestive heart failure/systolic ejection fraction 25% 2013 Limited echo pending History of CABG 4 Hypertension Dyslipidemia History of single-chamber defibrillator 08/19 due to positive EPS study Currently on sterile water with 3 ampules of bicarbonate at 75 cc an hour Holding valsartan 320 mg by mouth daily for hypertension due to acute kidney injury Continue Lipitor 40 mg by mouth daily/home medication for dyslipidemia On Coreg 50 mg by mouth twice a day at home for hypertension Milrinone was discontinued this a.m. due to dysrhythmias Echo 2013 - EF 25-30%. No regional wall motion and a mallet. Left atrium dilated Check CVP. At home on Lasix 40 mg by mouth twice a day. 60 ohms IV Lasix held due to worsening renal function Resp: Acute hypoxemic respiratory failure Ongoing tobaccoism PRVC 16/60/0.85/5/40 Ventilator bundle Bronchodilator therapy every 4 hours and as needed Spontaneous breathing trials when clinically indicated Solu-Medrol 60 IV every 6 hours GI: Gastroesophageal reflux disease 5.7 cm umbilical hernia Patient is currently nothing by mouth. Glucerna 1.5 goal 55 cc an hour per nutrition recommendation Pepcid 10 mg twice a day for GI prophylaxis. On Prilosec 20 mg by mouth daily at home Colace for bowel regimen Umbilical hernia seen on CT is reducible with no signs of strength inhalation : Becca's gangrene BPH Postop day #4 I&D 4 for Becca's gangrene/ necrotizing fasciitis posterior scrotum, perineum and right perirectal tissue Postop day #2 washout and debridement for his gangrene 12/28 revealed gas in his perineum/scrotum and the right gluteal cleft. Plan return to or today for washout and debridement with Dr. Ling Endo: Diabetes mellitus Gout Holding Tanzeum 50 mg subcutaneous weekly. Holding allopurinol 200 mg by mouth daily for gout Slight scale insulin with Accu-Cheks every 4 hours to maintain euglycemia. 6 units of sliding scale insulin past 24 hours Renal: Acute kidney injury - baseline creatinine 1.[address] revealed no signs of hydronephrosis. Check urine electrolytes/eosinophils. Renal ultrasound. No indications for hemodialysis at this point. Heme: Leukocytosis Normocytic anemia Daily CBC. Monitor trends Transfuse 2 units PRBCs during this hospital sedation. No current indication for transfusion of blood proximally at this time. ID: Becca's gangrene Group A beta strep UTI Unasyn 1.5 IV every 6 hours Clindamycin 300 mg by mouth every 6 hours till 01/02 Pertinent cultures Sputum - 12/31 - pending Abdomen abscess - 12/28 - Escherichia coli, E faecalis and coag negative staph Abdomen abscess - 12/28 - acid-fast bacilli/fungus negative Blood cultures 2 - 12/28 - no growth Urine culture - 12/28 -group A beta strep Infectious disease consulted FEN: Hyper-magnesium Hyperphosphatemia Replace electrolytes as clinically indicated Start PhosLo 667 3 times a day MSK: PT/OT evaluate and treat Access - Right IJ CVL day #2 place 12/31 - Left radial arterial line day #2 place 12/31 Prophylaxis - GI - Pepcid - DVT - SCD/heparin subcutaneous Critical Care: The total critical care time was 55 minutes. Time to perform other separately billable procedures was not included in the critical care time. Yandel Garcias MD Jan 01, 2017 07:22
[2017-01-01] MEDS: CHLORHEXIDINE 0.12% (ORAL KIT) 15 ML CUP MT SCH ×2 (08:00→20:07)
[2017-01-01] MEDS: LINEZOLID 600 MG PREMIX 300 ML IV SCH ×2 (08:36→20:07)
[2017-01-01] MEDS: SPIRONOLACTONE 25 MG TAB PO SCH (08:37)
[2017-01-01] MEDS: CARVEDILOL 12.5 MG TAB PO SCH ×2 (08:37→20:06)
[2017-01-01] MEDS: CALCIUM ACETATE 667 MG CAP PO SCH ×3 (09:00→18:22)
[2017-01-01] MEDS: ARTIFICIAL TEARS OPTH SOLN 15 ML BTL EACH EYE SCH ×3 (09:00→18:00)
[2017-01-01] MEDS: FAMOTIDINE 20 MG TAB PO SCH ×2 (09:00→20:06)
[2017-01-01] MEDS: SODIUM CHLORIDE 0.9% FLUSH 10 ML FLUSH SCH ×2 (09:00→20:08)
[2017-01-01] MEDS: DOCUSATE SODIUM 100 MG/10 ML UDC G-TUBE SCH ×2 (09:00→20:08)
--- NOTE | 2017-01-01 09:49 | MB ---
cc: SEBASTIAN JOE M.D. DATE OF CONSULTATION: 12/28/2016 REASON FOR CONSULTATION Becca's gangrene with perineal involvement. BRIEF HISTORY The patient is a 71-year-old diabetic male who presented with scrotal swelling and pain. He had a CT scan of the abdomen and pelvis performed in the emergency department which showed subcutaneous air in the scrotum tracking down onto the perineum toward the right buttock just lateral to the anus. Dr. Tim Ling of urology saw the patient and immediately took him to the operating room. Dr. Ling called me from the emergency department and asked if I would come in and evaluate the patient's perineal area to make sure the rectum was not involved. The patient was seen briefly in the operating room prior to him be induced under general anesthesia. Risks and benefits of the procedure were discussed with him and he was agreeable. DETAILS The patient was brought to the operating room and placed supine on the operating table. Dr. Tim Ling and the nursing staff placed the patient in lithotomy position. A time-out was taken. The perineal area was prepped and draped in standard surgical fashion. Dr. Ling inserted a Capps catheter. A midline incision was made in the scrotum. In the deep subcutaneous tissue Dr. Ling identified the necrotic tissue. He followed the necrotic tissue and sharply debrided it along the scrotum and down onto the perineum. As he extended the surgical wound down toward the anus by imaging it appeared that the subcutaneous tissue tracked laterally. I performed a digital rectal exam identifying the anus and rectum for Dr. Ling and directed him lateral to it, making sure he did not violate it. He continued debriding the tissue sharply until all necrotic tissue was debrided. This did not involve the anus, anal musculature or the rectum. Dr. Ling then performed copious antibiotic irrigation of the perineal area and then placed antibiotic soaked Kerlix in the perineum. I recommended loosely closing the perineum over the antibiotic gauze and bringing the patient back in 48 hours for a second washout and then considering closure on the third surgery if everything looked clean and healthy. I also recommended the patient remain intubated due to the likely sepsis from this necrotizing soft tissue infection and the fact the patient will need to return to the operating room in 48 hours. I was present throughout the entire procedure and assisted Dr. Ling. MD MISSY Farmer /8:03 AM /9:41 AM
[2017-01-01] MEDS: AMPICILLIN/SULBAC 1500 MG/NS 100 ML IV SCH ×4 (10:34→20:07)
--- NOTE | 2017-01-01 11:22 | HHI.IDPN ---
Subjective Subjective Remarks is a 71-year CM with PMHx of Diabetes who is on Tanzeum (GLP 1 agonist effects last upto once a week: its a subq injection). Patient reports he has been on this medication as despite good diet and compliance with meds his A1C was 7.7. He also reports history of pacemaker and defibrillator placement in 2016. He presents to the hospital due to testicular swelling. Patient reports swelling, discomfort and pain in the testicular area. He could not see it and does not know if he had a skin lesion prior to this episode at that site. He does report prior infections in the groin region. He also noted that her sugars has been slightly elevated. Denies any fevers. He has been feeling generally weak as well. ID consulted for sepsis, fourniers gangrene. s/p debridement x 2 Was transferred to the ICU for resp distress ? Pulm edema. No fever No rash No diarrhea Antibiotics Unasyn IV Clinda oral Lines Line sites with no e.o infection Past Medical History reviewed. Allergies: Coded Allergies: No Known Allergies (Verified , 12/28/16) Objective . Vital Signs Date Time Temp Pulse Resp B/P Pulse Ox O2 Delivery O2 Flow Rate FiO2 01/01/17 11:06 94 40 01/01/17 10:00 93 01/01/17 08:33 94 40 01/01/17 08:00 97.7 92 18 91 174/56 01/01/17 08:00 40 01/01/17 08:00 92 01/01/17 07:00 91 Mechanical Ventilator 40 01/01/17 06:00 97 01/01/17 04:15 164/66 01/01/17 04:00 101 01/01/17 04:00 40 01/01/17 04:00 92 40 01/01/17 04:00 98.2 101 20 97 185/66 01/01/17 02:00 99 01/01/17 01:29 94 40 01/01/17 00:45 123/46 01/01/17 00:30 179/62 01/01/17 00:00 98 01/01/17 00:00 40 01/01/17 00:00 98.3 98 24 94 182/66 12/31/16 23:00 134/50 12/31/16 22:15 94 40 12/31/16 22:00 152/58 12/31/16 22:00 90 12/31/16 20:00 94 Mechanical Ventilator 40 12/31/16 20:00 40 12/31/16 20:00 90 12/31/16 20:00 97.7 73 21 94 186/64 12/31/16 19:30 94 40 12/31/16 18:00 78 12/31/16 16:00 73 12/31/16 16:00 97.8 73 16 113/42 95 12/31/16 15:38 92 40 12/31/16 12:00 98.2 84 14 140/63 94 12/31/16 11:40 96 40 12/31/16 12/31/16 01/01/17 15:00 23:00 07:00 Intake Total 53 ml 506 ml 326 ml Output Total 500 ml 450 ml 175 ml Balance -447 ml 56 ml 151 ml IV Total 53 ml 506 ml 326 ml Output Urine Total 500 ml 250 ml 175 ml Stool Total 0 ml 0 ml 0 ml Gastric Drainage Total 200 ml 0 ml . Laboratory Tests Test 12/31/16 01/01/17 03:56 04:05 White Blood Count 10.2 TH/MM3 6.0 TH/MM3 Red Blood Count 4.40 MIL/MM3 4.18 MIL/MM3 Hemoglobin 11.9 GM/DL 11.5 GM/DL Hematocrit 37.8 % 34.6 % Mean Corpuscular Volume 85.9 FL 82.9 FL Mean Corpuscular Hemoglobin 27.0 PG 27.6 PG Mean Corpuscular Hemoglobin 31.4 % 33.2 % Concent Red Cell Distribution Width 19.6 % 19.3 % Platelet Count 143 TH/MM3 190 TH/MM3 Mean Platelet Volume 8.6 FL 8.3 FL Laboratory Tests Test 12/31/16 01/01/17 01/01/17 03:56 04:05 09:00 Sodium Level 143 MEQ/L 144 MEQ/L Potassium Level 4.6 MEQ/L 4.0 MEQ/L Chloride Level 106 MEQ/L 106 MEQ/L Carbon Dioxide Level 22.5 MEQ/L 21.8 MEQ/L Anion Gap 15 MEQ/L 16 MEQ/L Blood Urea Nitrogen 90 MG/DL 95 MG/DL Creatinine 3.29 MG/DL 3.34 MG/DL Estimat Glomerular Filtration 19 ML/MIN 18 ML/MIN Rate Random Glucose 152 MG/DL 215 MG/DL Calcium Level 8.0 MG/DL 8.1 MG/DL Phosphorus Level 7.2 MG/DL 5.2 MG/DL Magnesium Level 2.9 MG/DL 3.0 MG/DL B-Type Natriuretic Peptide 1063 PG/ML 522 PG/ML Lactic Acid Level 1.0 mmol/L Microbiology Date/Time Procedure Status Source Growth 12/31/16 12:40 Gram Stain - Final Resulted Sputum Endotracheal 12/31/16 12:40 Sputum Culture Resulted Sputum Endotracheal Pending 12/31/16 14:20 Gram Stain Received Sputum Endotracheal Pending 12/31/16 14:20 Sputum Culture Received Sputum Endotracheal Pending Imaging Last Impressions Chest X-Ray 12/31/16 0000 Signed Impressions: Service Date/Time: Saturday, December 31, 2016 12:16 - CONCLUSION: Lines and tubes now in place. Mild bilateral lower lung zone opacity suggesting mild pulmonary edema and possible small pleural effusions. Chronic cardiac silhouette enlargement. Gabe Landers MD Scrotum Ultrasound 12/28/16 1246 Signed Impressions: Service Date/Time: Wednesday, December 28, 2016 14:05 - CONCLUSION: 1. Marked thickening of the scrotal wall, up to 2.4 cm on the right. 2. Small complex left hydrocele. 3. Small complex cysts right testicle. Positive testicular blood flow. Nael Scott MD Abdomen/Pelvis CT 12/28/16 1237 Signed Impressions: Service Date/Time: Wednesday, December 28, 2016 14:52 - CONCLUSION: 1. 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 2. Mild bilateral inguinal adenopathy and marked scrotal wall thickening. 3. Fat-containing 5.7 cm umbilical hernia. 4. Atherosclerotic aorta with some displaced intimal calcifications but without significant aneurysm. No bowel obstruction. Mild ileus. Nael Scott MD Physical Exam GENERAL: Obese, CM patient, in no apparent distress. SKIN: No rashes. HEAD: Atraumatic. Normocephalic. No temporal or scalp tenderness. EYES: Pupils equal round and reactive. Extraocular motions intact. No scleral icterus. No injection or drainage. ENT: Intubated NECK: Trachea midline. Supple, nontender, no meningeal signs. CARDIOVASCULAR: Regular rate and rhythm without murmurs, gallops, or rubs. RESPIRATORY: Clear to auscultation. Breath sounds equal bilaterally. GASTROINTESTINAL: Abdomen soft, non-tender, nondistended. Umbilical hernia noted. MUSCULOSKELETAL: Extremities without clubbing, cyanosis, or edema. Scrotal area with erythema noted. Packing noted. NEUROLOGICAL: Sedated Psych: could not be assessed. IV line sites with no e.o infection. 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 E.faecalis, E.coli and Coag neg staph infection. Pulm edema: on vent Acute resp failure on Vent Grp D Enterococcus vs Strep in wound. Gram negative infection in groin. Grp A Strep in urine: 5 day course. Diabetes Mellitus uncontrolled. H/o recurrent groin area infections. Acute renal failure: prerenal, sepsis. CAD, CABG, s/p defibrillator and pacemaker. Ef 20% on ECHO this admit per tech. Recs: Continue Unasyn IV Continue Clindamycin oral (stop at 5 days no Grp A strep or MRSA identified so no further risk for toxin production) Start Zyvox IV (ASP: Coag neg stap in intra op cultures, Acute renal failure) Follow cultures Follow clinically. d/w Joan Szymanski MD Jan 01, 2017 11:22
--- NOTE | 2017-01-01 13:21 | ECHLIM ---
Study Study Date:01/01/2017 STUDY CONCLUSIONS SUMMARY - Left ventricle: The cavity size was normal. Wall thickness was normal. Systolic function was moderately reduced. The estimated ejection fraction was in the range of 35% to 40%. Akinesis of the apical myocardium. - Aortic valve: Valve area: 1.35cm^2(VTI). Valve area: 1.23cm^2 (Vmax). - Mitral valve: Mildly thickened annulus. Structurally normal valve. Mild regurgitation. - Left atrium: The atrium was moderately dilated. If LV function is below 40, please consider prescribing an ACEI or ARB or document rationale for non-use. PROCEDURE DATA STUDY STATUS: Elective. Procedure: Transthoracic echocardiography. Image quality was suboptimal. Scanning was performed from the parasternal, apical, and subcostal acoustic windows. Study completion: The patient tolerated the procedure well. Transthoracic echocardiography. M-mode, complete 2D, complete spectral Doppler, and color Doppler. Height: Height: 66in. Weight: Weight: 244.5lb. Body mass index: BMI: 39.5kg/m^2. Body surface area: BSA: 2.18m^2. Patient status: Inpatient. CARDIAC ANATOMY LEFT VENTRICLE: The cavity size was normal. Wall thickness was normal. Systolic function was moderately reduced. The estimated ejection fraction was in the range of 35% to 40%. Regional wall motion abnormalities: Akinesis of the apical myocardium. AORTIC VALVE: Trileaflet; normal thickness leaflets. Doppler: Transvalvular velocity was within the normal range. There was no stenosis. No regurgitation. Valve area: 1.35cm^2(VTI). Indexed valve area: 0.62cm^2/m^2 (VTI). Valve area: 1.23cm^2 (Vmax). Indexed valve area: 0.56cm^2/m^2 (Vmax). Mean gradient: 4mm Hg (S). AORTA: Aortic root: The aortic root was normal in size. MITRAL VALVE: Mildly thickened annulus. Structurally normal valve. Doppler: Transvalvular velocity was within the normal range. There was no evidence for stenosis. Mild regurgitation. Peak gradient: 3mm Hg (D). LEFT ATRIUM: The atrium was moderately dilated. RIGHT VENTRICLE: The cavity size was normal. Wall thickness was normal. Pacer wire or catheter noted in right ventricle. PULMONIC VALVE: Doppler: Transvalvular velocity was within the normal range. There was no evidence for stenosis. No regurgitation. TRICUSPID VALVE: Structurally normal valve. Doppler: Transvalvular velocity was within the normal range. Trace regurgitation. PULMONARY ARTERY: The main pulmonary artery was normal-sized. Systolic pressure was within the normal range. RIGHT ATRIUM: The atrium was normal in size. PERICARDIUM: There was no pericardial effusion. SYSTEMIC VEINS: Inferior vena cava: The vessel was normal in size. Patient weight: 244.5lb _Ejection fraction:_ 65-75% _Fractional shortening:_ 32% up to 5Kg 5-11.5Kg 11.6-22.9Kg 23-45Kg 45-57Kg Aortic Root 7-13 <17 13-22 17-27 17-27 LA diam 6-13 <23 24-38 33-47 37-40 RVID 10-17 7-15 7-15 7-18 8-17 LVIDd 12-22 <32 24-38 33-47 37-40 LVPW 2-4 3-6 5-7 6-8 7-8 IVS 2-4 3-6 5-7 6-8 7-8 BASIC MEASUREMENTS ADULT NORMAL Left ventricle LV internal dimension, ED, chordal 49.3 mm 43-52 level, PLAX LV internal dimension, ES, chordal *45 mm 23-38 level, PLAX Fractional shortening, chordal level, *9 % >29 PLAX LV posterior wall thickness, ED 10 mm IVS/LVPW ratio, ED 1.09 <1.3 Ventricular septum Septal thickness, ED 10.9 mm Aorta Root diameter, ED 32 mm Left atrium Anterior-posterior dimension 40 mm Anterior-posterior dimension index 1.83 cm/m^2 <2.2 DOPPLER MEASUREMENTS ADULT NORMAL Aortic valve Peak velocity, S 134 cm/s Mean velocity, S 88.9 cm/s VTI, S 17.9 cm Mean gradient, S 4 mm Hg Valve area, VTI 1.35 cm^2 Valve area index, VTI 0.62 cm^2/m^2 Valve area, Vmax 1.23 cm^2 Valve area index, Vmax 0.56 cm^2/m^2 Mitral valve Peak E-wave velocity 79.6 cm/s Deceleration time *132 ms 150-230 Peak gradient, D 3 mm Hg LEGEND: Mean values are shown as u=mean value. Asterisk (*) whaley values outside specified normal range. Prepared and signed by Harish Baker [id number]
--- NOTE | 2017-01-01 13:38 | RADRPT ---
EXAM DATE/TIME: 01/01/2017 09:12 [place] COMPARISON: No previous studies available for comparison. INDICATIONS : Increase Bun and Creatinine. MEDICAL HISTORY : Congestive heart failure. Hypercholesterolemia. Neuropathy. Myocardial infarction. Coronary artery d isease. Hypertension. BPH. Gout. SURGICAL HISTORY : CABG. Pacemaker. Coronary stent. ENCOUNTER: Initial ACUITY: 1 day PAIN SCORE: Nonresponsive. LOCATION: Bilateral flank MEASUREMENTS: RIGHT KIDNEY: 11.0 x 5.3 x 6.2 cm LEFT KIDNEY: 11.0 x 4.6 x 6.0 cm FINDINGS: RIGHT KIDNEY: Renal cortex is normal in thickness and echotexture. No hydronephrosis, stone, or mass. LEFT KIDNEY: Renal cortex is normal in thickness and echotexture. No hydronephrosis, stone, or mass. BLADDER: Bladder is totally decompressed and not well evaluated. CONCLUSION: Normal examination. Sushil Abdi Jr., MD on January 01, 2017 at 13:35 Board Certified Radiologist. This report was verified electronically.
--- NOTE | 2017-01-01 15:24 | OTSOAPIP ---
TIME SESSION COMPLETED: PM TREATMENT TIME: 0 MINS. CHART REVIEWED. INTERDISCIPLINARY COMMUNICATION: NURSING REQUEST TO HOLD TREATMENT TODAY SECONDARY TO PATIENT BEING AGITATED AND IS SCHEDULED FOR SURGERY. PLAN: WILL SEE PATIENT NEXT TREATMENT DAY Therapist: JARAD WADE/Darcy Signature on file
[2017-01-01 17:18] LABS: BLOOD GAS BASE EXCESS -0.8 mmol/L (-2-2); BLOOD GAS CARBOXYHEMOGLOBIN 1.6 % (0-4); BLOOD GAS HCO3 23 mmol/L (22-26); BLOOD GAS METHEMOGLOBIN 1.2 % (0-2); BLOOD GAS O2 HGB SATURATION 96 % (90-100); BLOOD GAS PCO2 36 mmHg (38-42); BLOOD GAS PO2 167 mmHg (61-120); BLOOD GAS TOTAL HGB 10.8 G/DL (12.0-16.0); CRITICAL VALUE NO; FIO2 60 %; OXYGEN DEVICE ANESTHESIA; TEMP CORR TO 98.6
[2017-01-01 17:19] LABS: DRAW SITE ALINE; STAT YES
--- NOTE | 2017-01-01 17:36 | PD.OP ---
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 Postoperative Diagnosis: Same Procedure: Washout and debridement of perineal wound. Anesthesia: GETA Surgeon: Tim Ling [place] Maintenance Technician(s): None Resident Surgeon: None Operation and Findings: 71 year-old male who initially presented with necrotizing fasciitis and Becca 's gangrene. He returns to the OR today to undergo washout with closure of the wound and debridement of necrotic tissue as necessary. The patient was intubated and sedated since yesterday in the unit. He was transferred directly from the SICU to the operating room. He was placed in the dorsal lithotomy position and received preprocedure antibiotics. He was prepped and draped in usual sterile fashion. Upon examination the wound, only a few small areas of tissue required to treatment along the skin edges. The entire rest of the wound was all with pink and viable tissue present. The pulse global marketing manager was then used to irrigate the wound in its entirety. Closure began with 2-0 Vicryl sutures placed at the deep layer of the wound and then the skin was closed in an interrupted fashion. 4 [place] drains were left in the wound between the sutures and each was anchored with a 2-0 silk suture. The wound was then closed completely. The patient was then transferred back to the SICU intubated and sedated and will be weaned off the vent as tolerated. He tolerated the procedure well and was hemodynamically stable throughout the entire case. Tim Ling DO Jan 01, 2017 17:36
[2017-01-01] MEDS: SODIUM CHLOR 0.9% 1000 ML INJ 1,000 ML IV SCH (18:45)
--- NOTE | 2017-01-01 20:03 | EKG ---
Date Performed: 01/01/2017 Time Performed: 07:50:54 PTAGE: 71 years EKG: Atrial fibrillation with rapid ventricular response with PVC(s) or aberrant ventricular con duction Delayed R wave progression Inferior Q waves Low QRS voltages in precordial leads Abnormal ECG PREVIOUS TRACING : 12/31/2016 22.45 Compared to prior tracing no significant change DOCTOR: Flynn Landrum Interpretating Date/Time 01/01/2017 20:01:33
[2017-01-01] MEDS: ATORVASTATIN 40 MG TAB PO SCH (20:06)
[2017-01-02] VITALS (20 sets, daily range): BP systolic 129–176; BP diastolic 64–82; PULSE 47–74; RESP 16–28; TEMP 97.5–98; O2SAT 92–97
[2017-01-02] MEDS: INSULIN NovoLIN REGULAR SUPPLEMENTAL SCALE SQ SCH ×6 (00:19→22:47)
[2017-01-02] MEDS: PROPOFOL 1000 MG/100 ML INJ 100 ML IV SCH ×5 (00:20→23:39)
[2017-01-02] MEDS: CLINDAMYCIN 150 MG CAP NG SCH ×2 (00:20→05:03)
--- NOTE | 2017-01-02 03:18 | RADRPT ---
EXAM DATE/TIME: 01/02/2017 02:36 [place] COMPARISON: CHEST SINGLE AP, December 31, 2016, 12:16. INDICATIONS : Respiratory distress. MEDICAL HISTORY : Diabetes mellitus type II. Cardiovascular disease. Hypertension. SURGICAL HISTORY : Pacemaker. CABG. ENCOUNTER: Subsequent ACUITY: 4 - 6 days PAIN SCORE: Non-responsive. LOCATION: Bilateral chest FINDINGS: A single view of the chest demonstrates right central line in superior vena cava. Endotracheal tube t ip in satisfactory position. NG enters the stomach. Postop median sternotomy. Cardiomegaly. Bilateral mostly basilar airspace disease with small effusions. CONCLUSION: 1. Cardiomegaly with mild basilar airspace disease. Support apparatus in satisfactory position. No pn eumothorax. No significant changes prior exam. Nael Scott MD on January 02, 2017 at 3:15 Board Certified Radiologist. This report was verified electronically.
[2017-01-02] MEDS: RESP: ALBUTEROL 2.5 MG/IPRATROPIUM 0.5 MG NEB (SCH) NEB ×6 (03:21→23:25)
[2017-01-02] MEDS: methylPREDNISolone SOD SUCC 125 MG/2 ML VIAL IV PUSH SCH ×3 (03:46→20:58)
[2017-01-02] MEDS: HYDROmorphone HCL PF 1 MG/ML VIAL IV PUSH PRN ×2 (03:46→08:10)
[2017-01-02] MEDS: CHLORHEXIDINE GLUCONATE 2 % 1 PACK (2 CLOTHS) TOP SCH (03:47)
[2017-01-02 04:31] LABS: AUTOMATED NEUTROPHIL # 5.3 TH/MM3 (1.8-7.7); BASOPHIL % 0.2 % (0.0-2.0); HEMATOCRIT 32.8 % (39.0-51.0); HEMO FLAGS DIFF FINAL; LYMPHOCYTE # 0.9 TH/MM3 (1.0-4.8); MEAN CELL VOLUME 81.9 FL (80.0-100.0); MEAN CORPUSCULAR HEMOGLOBIN 27.8 PG (27.0-34.0); MEAN CORPUSCULAR HGB CONC 33.9 % (32.0-36.0); MONO % 4.3 % (0.0-8.0); NEUT % 81.5 % (16.0-70.0); PLATELET COUNT 166 TH/MM3 (150-450); RED BLOOD COUNT 4.01 MIL/MM3 (4.50-5.90); WHITE BLOOD COUNT 6.5 TH/MM3 (4.0-11.0)
[2017-01-02 04:53] LABS: ALT (GPT) 21 U/L (12-78); ANION GAP 10 MEQ/L (5-15); AST (GOT) 17 U/L (15-37); BLOOD UREA NITROGEN 88 MG/DL (7-18); CHLORIDE 107 MEQ/L (98-107); GLOMERULAR FILTRATION RATE 24 ML/MIN (>89); MAGNESIUM 2.9 MG/DL (1.5-2.5); POTASSIUM 3.4 MEQ/L (3.5-5.1); SODIUM (NA) 144 MEQ/L (136-145)
[2017-01-02 04:57] LABS: ALKALINE PHOSPHATASE 82 U/L (45-117); TOTAL BILIRUBIN ADULT 0.4 MG/DL (0.2-1.0)
[2017-01-02] MEDS: SODIUM CHLOR 0.9% 1000 ML INJ 1,000 ML IV SCH ×2 (05:03→14:45)
[2017-01-02] MEDS: HEPARIN SODIUM - SQ 10,000 UNITS/ML VIAL SQ SCH ×3 (05:07→20:58)
[2017-01-02 05:09] LABS: BLOOD GAS BASE EXCESS 1.3 mmol/L (-2-2); BLOOD GAS CARBOXYHEMOGLOBIN 1.3 % (0-4); BLOOD GAS HCO3 25 mmol/L (22-26); BLOOD GAS METHEMOGLOBIN 0.8 % (0-2); BLOOD GAS O2 HGB SATURATION 93 % (90-100); BLOOD GAS OXYGEN CONTENT 14.3 Vol % (12.0-20.0); BLOOD GAS PCO2 37 mmHg (38-42); BLOOD GAS PO2 77 mmHg (61-120); BLOOD GAS TOTAL HGB 10.9 G/DL (12.0-16.0); CRITICAL VALUE NO; OXYGEN DEVICE VENTILATOR; TEMP CORR TO 98.6; VENT SETTINGS PRVC/AC
[2017-01-02 05:10] LABS: DRAW SITE ART LINE; FIO2 40 %; STAT NO
[2017-01-02] MEDS ORDERED: POTASSIUM CHLOR 40 MEQ PREMIX 100 ML IV ONE (06:30)
[2017-01-02] MEDS ORDERED: DIGOXIN 0.5 MG/2 ML VIAL IV PUSH ONE ×2 (06:30→13:00)
--- NOTE | 2017-01-02 06:36 | HHI.CCPN ---
Subjective Remarks/Hospital Course 71-year-old male presents for evaluation of testicular swelling. Approximately 10 days ago he was started on Aldactone for his blood pressure which. He also noted that her sugars has been slightly elevated. Denies any fevers. He has been feeling generally weak as well. Denied abdominal pain nausea vomiting or diarrhea. He thought the scrotal swelling was from the Aldactone and came into the emergency department to be evaluated. 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 remains intubated overnight. off vasopressors. 12/30: Much more comfortable. Back to OR for washout today. Breathing without distress. STEFFEN improving. Patient has dilated cardiomyopathy with severe systolic heart failure and EF 25-30% by last ECHO 2013. May need low-dose inotrope during course of therapy. 12/30 1800 hrs: Seen after OR today. He has full neck veins and light wheezes with basilar crackles. His underlying LV dysfunction requires that we treat this aggressively with diuretics and subsequent electrolyte replacement. Will move back to [facility]. 12/31: Required rapid response for 2nd time in 12 hours. Will need intubation due to severe systolic heart failure and pulmonary edema. 01/01: Afebrile. Remains nothing by mouth for planned washout today. Decreased urine output noted. Hypertensive with sedation vacation. Subjective: 01/02: Yesterday with washout and debridement without complication. Continues to be in A. fib intermittently rate controlled. Hemodynamically stable. One bowel movement. Will try spontaneous breathing trials today and attempt to extubate. If unsuccessful will initiate tube feeding. Objective Vital Signs Date Time Temp Pulse Resp B/P Pulse Ox O2 Delivery O2 Flow Rate FiO2 01/02/17 03:30 94 40 01/02/17 02:00 66 01/02/17 00:00 97.7 16 168/64 01/01/17 20:00 Mechanical Ventilator 12/31/16 08:50 6.00 Intake and Output 01/01/17 01/01/17 01/02/17 08:00 16:00 00:00 Intake Total 326 ml 1228 ml 586 ml Output Total 175 ml 225 ml 401 ml Balance 151 ml 1003 ml 185 ml Result Diagram: 01/02/17 0413 01/02/17 0413 Other Results Microbiology Date/Time Procedure Status Source Growth 12/31/16 14:20 Gram Stain Received Sputum Endotracheal Pending 12/31/16 14:20 Sputum Culture Received Sputum Endotracheal Pending 12/31/16 12:40 Gram Stain - Final Resulted Sputum Endotracheal 12/31/16 12:40 Sputum Culture - Preliminary Resulted Sputum Endotracheal NO GROWTH IN 24 HOURS. 12/28/16 18:35 Fungal Smear - Final Resulted Abscess Scrotum NO FUNGAL ELEMENTS SEEN. 12/28/16 18:35 Fungal Culture Resulted Abscess Scrotum Pending 12/28/16 18:35 Acid Fast Stain - Final Resulted Abscess Scrotum NO ACID FAST BACILLI SEEN 12/28/16 18:35 Mycobacterial Culture Resulted Abscess Scrotum Pending 12/28/16 13:15 Urine Culture - Final Complete Urine Random Urine Group A Beta Strep 12/28/16 12:50 Aerobic Blood Culture - Preliminary Resulted Blood Peripheral NO GROWTH IN 4 DAYS 12/28/16 12:50 Anaerobic Blood Culture - Preliminary Resulted Blood Peripheral NO GROWTH IN 4 DAYS 12/28/16 12:40 Aerobic Blood Culture Received Blood Peripheral Pending 12/28/16 12:40 Anaerobic Blood Culture Received Blood Peripheral Pending Imaging Last Impressions Chest X-Ray 01/02/17 0600 Signed Impressions: Service Date/Time: December 02:36 - CONCLUSION: 1. Cardiomegaly with mild basilar airspace disease. Support apparatus in satisfactory position. No pneumothorax. No significant changes prior exam. Nael Scott MD Renal Ultrasound 01/01/17 0000 Signed Impressions: Service Date/Time: Sunday, January 01, 2017 09:12 - CONCLUSION: Normal examination. Sushil Abdi Jr., MD Scrotum Ultrasound 12/28/16 1246 Signed Impressions: Service Date/Time: Wednesday, December 28, 2016 14:05 - CONCLUSION: 1. Marked thickening of the scrotal wall, up to 2.4 cm on the right. 2. Small complex left hydrocele. 3. Small complex cysts right testicle. Positive testicular blood flow. Nael Scott MD Abdomen/Pelvis CT 12/28/16 1237 Signed Impressions: Service Date/Time: Wednesday, December 28, 2016 14:52 - CONCLUSION: 1. 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 2. Mild bilateral inguinal adenopathy and marked scrotal wall thickening. 3. Fat-containing 5.7 cm umbilical hernia. 4. Atherosclerotic aorta with some displaced intimal calcifications but without significant aneurysm. No bowel obstruction. Mild ileus. Nael Scott MD Objective Remarks GENERAL: 71-year-old male, critically ill currently orotracheally intubated SKIN: Warm and dry. We'll perfused with no rash HEAD: Normocephalic. EYES: Pupils are 4 mm bilaterally and reactive. No scleral icterus. No injection or drainage. NECK: trachea midline.Supple. + JVD. Right subclavian clean dry and intact CARDIOVASCULAR: RRR. S1, S2 no S4. Without murmur RESPIRATORY: Diminished breath sounds due to body habitus. Few crackles patient bases bilaterally. GASTROINTESTINAL: Abdomen soft, non-tender, nondistended. Hypoactive bowel sounds appreciated MUSCULOSKELETAL: Currently with trace bilateral lower extremity pitting edema. Dorsalis pedis and posterior tibials are palpable bilaterally EXTREMITIES: No clubbing cyanosis or edema : Minimal scrotal edema. Packing which is clean and dry in the groin. A pimentel exits the penis meatus intact without blood. [address] [place] [address] in [address] NEURO: Cranial nerves II through XII grossly intact. Moves all 4 extremities spontaneously. Withdraws to pain Urinary Catheter: Yes Assessment to: Continue Pimentel insert reason: Prolonged Immobilization Vascular Central Line Catheter: Yes Assessment to: Continue Date of Insertion: Dec 31, 2016 Line: Central Venous Catheter Side: Right Location: Subclavian A/P Problem List: (1) Congestive heart failure ICD Code: I50.9 Status: Acute (2) Necrotizing fasciitis ICD Code: M72.6 Status: Acute (3) Becca gangrene ICD Code: N49.3 Status: Acute (4) Sepsis ICD Code: A41.9 Status: Acute Assessment and Plan Neuro/Psych: Acute toxic metabolic encephalopathy Posttraumatic stress disorder Depression/anxiety History of peripheral neuropathy Patient is currently on propofol at 25 mcg/kg/m as needed Dilaudid for sedation/ analgesia while intubated Goal of RASS -2 Daily sedation vacation Currently quite agitated this AM. Not on home medications for underlying psychiatric diagnosis. CV: Congestive heart failure/systolic ejection fraction 25% 2014 Limited echo EF 35-40% with akinesis apical myocardium History of CABG 4 Hypertension Dyslipidemia History of single-chamber defibrillator 08/19 due to positive EPS study Currently on normal saline at 100 cc an hour Holding valsartan 320 mg by mouth daily for hypertension due to acute kidney injury Continue Lipitor 40 mg by mouth daily/home medication for dyslipidemia On Coreg 50 mg by mouth twice a day at home for hypertension We'll order hydralazine/Isordil as adjuvant while creatinine elevated Milrinone was discontinued 01/01 due to dysrhythmias Echo 2013 - EF 25-30%. No regional wall motion abnormality. Left atrium dilated Limited echo 2016 reveals EF 35-40%. Akinesis apical myocardium. Left atrium mild dilatated. Mild MR. At home on Lasix 40 mg by mouth twice a day. 60 milligrams IV Lasix held due to worsening renal function Given 2 doses of digoxin 0.25 mg IV 1. Recheck digoxin level in a.m. Resp: Acute hypoxemic respiratory failure Ongoing tobaccoism PRVC 16/60/0.85/5/40 Ventilator bundle Bronchodilator therapy every 4 hours and as needed Spontaneous breathing trials today. Attempt extubated Solu-Medrol 60 IV every 6 hours GI: Gastroesophageal reflux disease 5.7 cm umbilical hernia Patient is currently nothing by mouth. Glucerna 1.5 goal 55 cc an hour per nutrition recommendation if tube feeds to be resumed today Pepcid 10 mg twice a day for GI prophylaxis. On Prilosec 20 mg by mouth daily at home Colace for bowel regimen Umbilical hernia seen on CT is reducible with no signs of strength inhalation : Becca's gangrene BPH Postop day #5 I&D 4 for Becca's gangrene/ necrotizing fasciitis posterior scrotum, perineum and right perirectal tissue Postop day #3 washout and debridement for his gangrene Postoperative day #1 washout and debridement of gangrene with placement of 4 Tatiana drains 12/28 revealed gas in his perineum/scrotum and the right gluteal cleft. Followed by urology/Dr. Sushil Stein: Diabetes mellitus Gout Holding Tanzeum 50 mg subcutaneous weekly. Holding allopurinol 200 mg by mouth daily for gout Sliding scale insulin with Accu-Cheks every 4 hours to maintain euglycemia. 16 units of sliding scale insulin past 24 hours Renal: Acute kidney injury - baseline creatinine 1.[address] revealed no signs of hydronephrosis. Urine eosinophils negative. Renal ultrasound revealed no hydronephrosis Creatinine currently 2.67 and downward trending. No indications for hemodialysis at this point. Heme: Normocytic anemia Daily CBC. Monitor trends Transfuse 2 units PRBCs during this hospital sedation. No current indication for transfusion of blood proximally at this time. ID: Becca's gangrene Group A beta strep UTI Unasyn 1.5 IV every 6 hours Clindamycin 300 mg by mouth every 6 hours till 01/02 Zyvox day #2 Pertinent cultures Sputum - 12/31 -no growth Abdomen abscess - 12/28 - Escherichia coli, E faecalis and coag negative staph Abdomen abscess - 12/28 - acid-fast bacilli/fungus negative Blood cultures 2 - 12/28 - no growth Urine culture - 12/28 -group A beta strep Infectious disease consulted. Discontinue clindamycin today. Started Zyvox yesterday FEN: Hyper-magnesium Hyperphosphatemia Hypokalemia Replace electrolytes as clinically indicated Start PhosLo 667 3 times a day 40 mEq IV potassium chloride 1 now. Recheck at 1500 MSK: PT/OT evaluate and treat Access - Right IJ CVL day #3 place 12/31 - Left radial arterial line day #3 place 12/31 Prophylaxis - GI - Pepcid - DVT - SCD/heparin subcutaneous Critical Care: The total critical care time was 35 minutes. Time to perform other separately billable procedures was not included in the critical care time. Yandel Garcias MD Jan 02, 2017 06:36
[2017-01-02] MEDS: DEXMEDETOMIDINE INJ 50 ML IV SCH ×3 (07:28→11:06)
[2017-01-02] MEDS: CALCIUM ACETATE 667 MG CAP PO SCH ×3 (07:29→18:00)
[2017-01-02] MEDS: CARVEDILOL 12.5 MG TAB PO SCH ×3 (07:29→21:00)
[2017-01-02] MEDS: SPIRONOLACTONE 25 MG TAB PO SCH (07:29)
[2017-01-02] MEDS: FAMOTIDINE 20 MG TAB PO SCH ×2 (07:29→20:59)
[2017-01-02] MEDS: LINEZOLID 600 MG PREMIX 300 ML IV SCH ×2 (07:30→20:59)
[2017-01-02] MEDS: AMPICILLIN/SULBAC 1500 MG/NS 100 ML IV SCH ×4 (07:35→22:46)
[2017-01-02] MEDS: CHLORHEXIDINE 0.12% (ORAL KIT) 15 ML CUP MT SCH ×2 (08:00→20:00)
[2017-01-02] MEDS ORDERED: NITROGLYCERIN 2% OINT 1 GM PACKET TOPICAL PRN (08:00)
[2017-01-02] MEDS: hydrALAZINE HCL 20 MG/ML VIAL IV PUSH PRN ×3 (08:33→15:44)
[2017-01-02] MEDS: SODIUM CHLORIDE 0.9% FLUSH 10 ML FLUSH SCH ×2 (09:00→20:59)
[2017-01-02] MEDS: ARTIFICIAL TEARS OPTH SOLN 15 ML BTL EACH EYE SCH ×3 (09:00→18:00)
[2017-01-02] MEDS: DOCUSATE SODIUM 100 MG/10 ML UDC G-TUBE SCH (10:42)
[2017-01-02] MEDS: DEXMEDETOMIDINE INJ 200 MCG in SODIUM CHLORIDE 0.9% INJ 48 ML IV SCH ×2 (12:32→15:42)
--- NOTE | 2017-01-02 13:08 | HHI.PR ---
Subjective Patient symptoms today Pt seen and examined. Intubated and sedated. Objective Vital Signs Vital Signs Date Time Temp Pulse Resp B/P Pulse Ox O2 Delivery O2 Flow Rate FiO2 01/02/17 12:00 97.5 60 17 94 159/67 01/02/17 12:00 60 01/02/17 12:00 40 01/02/17 10:51 92 50 01/02/17 10:00 63 01/02/17 08:00 40 01/02/17 08:00 92 Mechanical Ventilator 40 01/02/17 08:00 62 01/02/17 08:00 97.5 62 16 92 176/78 01/02/17 07:25 92 40 01/02/17 06:00 56 01/02/17 04:00 97.6 64 16 94 176/82 01/02/17 04:00 40 01/02/17 04:00 64 01/02/17 03:30 94 40 01/02/17 02:00 66 01/02/17 00:00 40 01/02/17 00:00 72 01/02/17 00:00 97.7 72 16 97 168/64 01/01/17 23:11 94 40 01/01/17 22:00 73 01/01/17 20:00 40 01/01/17 20:00 76 01/01/17 20:00 97.7 76 16 95 172/70 01/01/17 20:00 95 Mechanical Ventilator 40 01/01/17 19:29 96 40 01/01/17 18:00 91 01/01/17 16:23 100 100 01/01/17 14:00 93 Intake & Output 01/02/17 01/02/17 07:00 19:00 Intake Total 1371 ml Output Total 753 ml Balance 618 ml IV Total 1371 ml Output Urine Total 750 ml Stool Total 3 ml Gastric Drainage Total 0 ml Result Diagram: 01/02/1741201/02/17 041 Imaging Last 24 hours Impressions Chest X-Ray 01/02/17 0600 Signed Impressions: Service Date/Time: December 02:36 - CONCLUSION: 1. Cardiomegaly with mild basilar airspace disease. Support apparatus in satisfactory position. No pneumothorax. No significant changes prior exam. Nael Scott MD Objective Remarks Abd:soft,nt,nd Capps: urine clear Wound: moderate drainage noted. Scrotal erythema improved. 12/30 Abd:soft,nt,nd Capps with clear urine Scrotal erythema improved. 12/31 Abd:soft,nt,nd Capps with clear urine Dressings in place. Ext: neg C/C/E 01/02 Abd:soft,nt,nd Wound: clean with kay drains in place Medications and IVs Current Medications Medications (Trade) Dose Ordered Sig/Abdiel Route Start Time Stop Time Status Last Admin (NS Flush) 2 ml UNSCH PRN .XX 12/28/16 20:15 (NS Flush) 2 ml BID .XX 12/28/16 21:00 01/02/17 09:00 (Tylenol) 650 mg Q6H PRN PO 12/28/16 20:15 12/29/16 13:42 (Tears Naturale Opth Soln) 1 drop TID EACH EYE 12/29/16 09:00 01/02/17 09:00 (Zofran Inj) 4 mg Q6H PRN IV 12/28/16 20:15 (Colace Liq) 100 mg Q12H G-TUBE 12/28/16 21:00 12/31/16 20:10 (Heparin Inj) 5,000 units Q8H SQ 12/28/16 22:00 01/02/17 05:07 Miscellaneous Information 1 Q361D XX 12/28/16 20:15 12/29/16 00:29 (Chlorhexidine 2% Cloth) 3 pack Taper DAILY@04 TOP 12/29/16 04:00 12/25/17 03:59 01/02/17 03:47 (Chlorhexidine 2% Cloth) 3 pack UNSCH PRN TOP 12/28/16 20:15 (D50w (Vial) Inj) 25 ml UNSCH PRN IV PUSH 12/29/16 07:15 (Roxicodone) 5 mg Q4H PRN PO 12/29/16 15:00 01/01/17 20:42 Hydromorphone HCl 0.5 mg 0.5 mg Q4H PRN IV PUSH 12/29/16 15:00 01/02/17 08:10 (Unasyn Inj/NS Inj) 100 ml @ 200 mls/hr Q12H IV 12/30/16 21:00 01/02/17 07:35 (Lipitor) 40 mg HS PO 12/30/16 21:00 01/01/17 20:06 (Coreg) 50 mg BID PO 12/30/16 21:00 01/02/17 09:00 (Aldactone) 12.5 mg DAILY PO 12/31/16 09:00 01/02/17 07:29 (Pill Splitter) 1 ea UNSCH PRN OTHER 12/30/16 12:15 (SoluMEDROL INJ) 60 mg Q6H IV PUSH 12/31/16 10:00 01/02/17 09:36 (Lasix Inj) 40 mg BID@09,18 IV PUSH 12/31/16 09:00 Hold (Pepcid) 10 mg BID PO 12/31/16 21:00 01/02/17 07:29 Chlorhexidine Gluconate 15 ml 15 ml BID@08,20 MT 12/31/16 20:00 01/02/17 08:00 Propofol 100 ml @ 0 mls/hr TITRATE IV 12/31/16 16:00 01/02/17 09:36 (Zyvox 600 Mg Premix) 300 ml @ 300 mls/hr Q12H IV 01/01/17 08:00 01/02/17 07:30 (Phoslo) 667 mg TID PO 01/01/17 09:00 01/02/17 11:29 Insulin Human Regular 1 1 Q4HR SQ 01/01/17 12:00 01/02/17 08:00 (NS 1000 ml Inj) 1,000 ml @ 100 mls/hr Q10H IV 01/01/17 18:45 01/02/17 05:03 (Trandate Inj) 10 mg Q1HR PRN IV PUSH 01/02/17 08:00 (Apresoline Inj) 10 mg Q1HR PRN IV PUSH 01/02/17 08:00 01/02/17 09:36 Nitroglycerin 2 inch 2 inch Q6HR PRN TOPICAL 01/02/17 08:00 01/02/17 08:44 (Precedex Inj/NS Inj) 50 ml @ 0 mls/hr TITRATE IV 01/02/17 12:27 01/02/17 12:32 Assessment and Plan Assessment and Plan 71-year-old male with perineal/rectal abscess; 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 Patient will require IR intervention for debridement with washout. Risk and benefits discussed and patient is willing to proceed. 12/29 71 y.o male s/p debridement and washout of necrotizing fascitis Will plan to return to OR tomorrow for washout NPO after MN 12/30 71 y.o. male s/p debridement with washout of necrotizing fascitis OR today for washout. NPO 12/31 71 y.o. male s/p debridement with washout of necrotizing fascitis For washout with closure tomorrow in OR. NPO 01/02 Stable s/p debridement and washout of necrotizing fascitis Extubate today per SICU attending Will remove kay in a few days. Tim Ling DO Jan 02, 2017 13:08
[2017-01-02] MEDS: ATORVASTATIN 40 MG TAB PO SCH (20:59)
[2017-01-03] VITALS (19 sets, daily range): BP systolic 123–152; BP diastolic 63–83; PULSE 50–86; RESP 16–19; TEMP 97.7–99.2; O2SAT 91–100
[2017-01-03] MEDS: INSULIN NovoLIN REGULAR SUPPLEMENTAL SCALE SQ SCH ×6 (00:20→20:00)
[2017-01-03] MEDS: SODIUM CHLOR 0.9% 1000 ML INJ 1,000 ML IV SCH ×3 (00:45→20:45)
[2017-01-03] MEDS: PROPOFOL 1000 MG/100 ML INJ 100 ML IV SCH ×4 (03:30→18:59)
[2017-01-03] MEDS: RESP: ALBUTEROL 2.5 MG/IPRATROPIUM 0.5 MG NEB (SCH) NEB ×5 (03:54→20:14)
[2017-01-03] MEDS: CHLORHEXIDINE GLUCONATE 2 % 1 PACK (2 CLOTHS) TOP SCH (04:00)
[2017-01-03 04:11] LABS: AUTOMATED NEUTROPHIL # 6.1 TH/MM3 (1.8-7.7); BASOPHIL % 0.2 % (0.0-2.0); HEMATOCRIT 35.5 % (39.0-51.0); HEMO FLAGS DIFF FINAL; LYMPH % 9.9 % (9.0-44.0); LYMPHOCYTE # 0.7 TH/MM3 (1.0-4.8); MEAN CELL VOLUME 82.7 FL (80.0-100.0); MEAN CORPUSCULAR HEMOGLOBIN 27.1 PG (27.0-34.0); MEAN CORPUSCULAR HGB CONC 32.8 % (32.0-36.0); MONO % 3.9 % (0.0-8.0); PLATELET COUNT 164 TH/MM3 (150-450); RED BLOOD COUNT 4.29 MIL/MM3 (4.50-5.90); RED CELL DISTRIBUTION WIDTH 18.2 % (11.6-17.2); WHITE BLOOD COUNT 7.1 TH/MM3 (4.0-11.0)
[2017-01-03] MEDS: HEPARIN SODIUM - SQ 10,000 UNITS/ML VIAL SQ SCH ×3 (06:00→21:22)
[2017-01-03] MEDS: methylPREDNISolone SOD SUCC 125 MG/2 ML VIAL IV PUSH SCH ×3 (06:00→21:22)
[2017-01-03 06:20] LABS: ALKALINE PHOSPHATASE 80 U/L (45-117); BLOOD UREA NITROGEN 72 MG/DL (7-18); GLOMERULAR FILTRATION RATE 38 ML/MIN (>89); MAGNESIUM 2.7 MG/DL (1.5-2.5)
[2017-01-03 06:21] LABS: ALT (GPT) 20 U/L (12-78); AST (GOT) 22 U/L (15-37); POTASSIUM 3.9 MEQ/L (3.5-5.1); SODIUM (NA) 144 MEQ/L (136-145); TOTAL BILIRUBIN ADULT 0.3 MG/DL (0.2-1.0)
[2017-01-03 06:22] LABS: ANION GAP 11 MEQ/L (5-15); BICARBONATE 26.2 MEQ/L (21.0-32.0); CHLORIDE 107 MEQ/L (98-107)
--- NOTE | 2017-01-03 06:27 | HHI.CCPN ---
Subjective Remarks/Hospital Course 71-year-old male presents for evaluation of testicular swelling. Approximately 10 days ago he was started on Aldactone for his blood pressure which. He also noted that her sugars has been slightly elevated. Denies any fevers. He has been feeling generally weak as well. Denied abdominal pain nausea vomiting or diarrhea. He thought the scrotal swelling was from the Aldactone and came into the emergency department to be evaluated. 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 remains intubated overnight. off vasopressors. 12/30: Much more comfortable. Back to OR for washout today. Breathing without distress. STEFFEN improving. Patient has dilated cardiomyopathy with severe systolic heart failure and EF 25-30% by last ECHO 2013. May need low-dose inotrope during course of therapy. 12/30 1800 hrs: Seen after OR today. He has full neck veins and light wheezes with basilar crackles. His underlying LV dysfunction requires that we treat this aggressively with diuretics and subsequent electrolyte replacement. Will move back to [facility]. 12/31: Required rapid response for 2nd time in 12 hours. Will need intubation due to severe systolic heart failure and pulmonary edema. 01/01: Afebrile. Remains nothing by mouth for planned washout today. Decreased urine output noted. Hypertensive with sedation vacation. 01/02: Yesterday with washout and debridement without complication. Continues to be in A. fib intermittently rate controlled. Hemodynamically stable. One bowel movement. Will try spontaneous breathing trials today and attempt to extubate. If unsuccessful will initiate tube feeding. Subjective: 01/03: Tmax 99.2. Episode of desaturation overnight recording FiO2 100%. Currently back to 50%. Chest x-ray essentially stable. Small left pleural effusion. Low lung volumes. Remains in a flutter rate controlled. Imminently bradycardic. 3 bowel movements on 01/02. Tolerating tube feeding. Objective Vital Signs Date Time Temp Pulse Resp B/P Pulse Ox O2 Delivery O2 Flow Rate FiO2 01/03/17 05:23 99 60 01/03/17 02:00 50 01/03/17 00:00 99.2 16 136/63 01/02/17 19:00 Mechanical Ventilator 12/31/16 08:50 6.00 Intake and Output 01/02/17 01/02/17 01/03/17 08:00 16:00 00:00 Intake Total 785 ml 1742 ml 701 ml Output Total 352 ml 1600 ml 450 ml Balance 433 ml 142 ml 251 ml Result Diagram: 01/03/17 0325 01/02/17 1607 Other Results Microbiology Date/Time Procedure Status Source Growth 12/31/16 14:20 Gram Stain Received Sputum Endotracheal Pending 12/31/16 14:20 Sputum Culture Received Sputum Endotracheal Pending 12/31/16 12:40 Gram Stain - Final Complete Sputum Endotracheal 12/31/16 12:40 Sputum Culture - Final Complete Sputum Endotracheal NO GROWTH IN 48 HOURS. Imaging Last Impressions Chest X-Ray 01/02/17 0600 Signed Impressions: Service Date/Time: December 02:36 - CONCLUSION: 1. Cardiomegaly with mild basilar airspace disease. Support apparatus in satisfactory position. No pneumothorax. No significant changes prior exam. Nael Scott MD Renal Ultrasound 01/01/17 0000 Signed Impressions: Service Date/Time: Sunday, January 01, 2017 09:12 - CONCLUSION: Normal examination. Sushil Abdi Jr., MD Scrotum Ultrasound 12/28/16 1246 Signed Impressions: Service Date/Time: Wednesday, December 28, 2016 14:05 - CONCLUSION: 1. Marked thickening of the scrotal wall, up to 2.4 cm on the right. 2. Small complex left hydrocele. 3. Small complex cysts right testicle. Positive testicular blood flow. Nael Scott MD Abdomen/Pelvis CT 12/28/16 1237 Signed Impressions: Service Date/Time: Wednesday, December 28, 2016 14:52 - CONCLUSION: 1. 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 2. Mild bilateral inguinal adenopathy and marked scrotal wall thickening. 3. Fat-containing 5.7 cm umbilical hernia. 4. Atherosclerotic aorta with some displaced intimal calcifications but without significant aneurysm. No bowel obstruction. Mild ileus. Nael Scott MD Objective Remarks GENERAL: 71-year-old male, critically ill currently orotracheally intubated SKIN: Warm and dry. No rash HEAD: Normocephalic. EYES: Pupils are 4 mm bilaterally and reactive. No scleral icterus. No injection or drainage. NECK: trachea midline.Supple. Right subclavian clean dry and intact CARDIOVASCULAR: Bradycardia, IR. S1, S2 no S4. Without murmur RESPIRATORY: Diminished breath sounds due to body habitus. Few crackles appreciated in the bases bilaterally. GASTROINTESTINAL: Abdomen soft, non-tender, obese. Hypoactive bowel sounds appreciated MUSCULOSKELETAL: Currently with trace bilateral lower extremity pitting edema. Dorsalis pedis and posterior tibials are palpable bilaterally : Minimal scrotal edema. Packing which is clean and dry in the groin. A pimentel exits the penis meatus intact without blood. [address] NEURO: Cranial nerves II through XII grossly intact. Moves all 4 extremities spontaneously. Withdraws to pain. 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 CV: Congestive heart failure/systolic ejection fraction 25% 2013 Limited echo EF 35-40% with akinesis apical myocardium History of CABG 4 Hypertension Dyslipidemia History of single-chamber defibrillator 08/19 due to positive EPS study Currently on normal saline at 100 cc an hour Holding valsartan 320 mg by mouth daily for hypertension due to acute kidney injury Continue Lipitor 40 mg by mouth daily/home medication for dyslipidemia On Coreg 50 mg by mouth twice a day at home for hypertension - decreased to 25 twice a day with underlying bradycardia We'll order hydralazine/Isordil as adjuvant while creatinine elevated Milrinone was discontinued 3/29 due to dysrhythmias Echo 2013 - EF 25-30%. No regional wall motion abnormality. Left atrium dilated Limited echo 2017 reveals EF 35-40%. Akinesis apical myocardium. Left atrium mild dilatated. Mild MR. At home on Lasix 40 mg by mouth twice a day. 60 milligrams IV Lasix held due to worsening renal function Given 2 doses of digoxin 0.25 mg IV 1. Recheck digoxin level in a.m. pending We'll consult call urology for underlying atrial flutter. Likely will need full dose anticoagulation soon if okay with urology Resp: Acute hypoxemic respiratory failure Ongoing tobaccoism PRVC 16/60/0.85/5/50 Ventilator bundle Bronchodilator therapy every 4 hours and as needed Spontaneous breathing trials today. Adequate weaning parameters however FiO2 50 % Solu-Medrol 60 IV every 12 hours Follow-up chest x-ray GI: Gastroesophageal reflux disease 5.7 cm umbilical hernia Glucerna 1.5 goal 55 cc an hour Pepcid 10 mg twice a day for GI prophylaxis. On Prilosec 20 mg by mouth daily at home Colace/senna twice a day for bowel regimen Umbilical hernia seen on CT is reducible with no signs of strength inhalation : Becca's gangrene BPH Postop day #6 I&D 4 for Becca's gangrene/ necrotizing fasciitis posterior scrotum, perineum and right perirectal tissue Postop day #4 washout and debridement for his gangrene Postoperative day #2 washout and debridement of gangrene with placement of 4 [place] drains 12/28 revealed gas in his perineum/scrotum and the right gluteal cleft. Followed by urology/Dr. Ling Endo: Diabetes mellitus Gout Holding Tanzeum 50 mg subcutaneous weekly. Holding allopurinol 200 mg by mouth daily for gout Sliding scale insulin with Accu-Cheks every 4 hours to maintain euglycemia. 16 units of sliding scale insulin past 24 hours Renal: Acute kidney injury - baseline creatinine 1.[address] revealed no signs of hydronephrosis. Urine eosinophils negative. Renal ultrasound revealed no hydronephrosis Creatinine currently 1.78 and downward trending. No indications for hemodialysis at this point. Heme: Normocytic anemia Daily CBC. Monitor trends Transfuse 2 units PRBCs during this hospital sedation. No current indication for transfusion of blood proximally at this time. ID: Becca's gangrene Group A beta strep UTI Unasyn 1.5 IV every 6 hours Clindamycin 300 mg by mouth every 6 hours completed 01/02 Zyvox day #3 Pertinent cultures Sputum - 12/31 -no growth Abdomen abscess - 12/28 - Escherichia coli, E faecalis and coag negative staph Abdomen abscess - 12/28 - acid-fast bacilli/fungus negative Blood cultures 2 - 12/28 - no growth Urine culture - 12/28 -group A beta strep Infectious disease consulted. Discontinue clindamycin today. Started Zyvox yesterday FEN: Hyper-magnesium Hyperphosphatemia - resolved Hypokalemia - resolved Replace electrolytes as clinically indicated Discontinue PhosLo 667 3 times a day A.m. laboratories pending MSK: PT/OT evaluate and treat Access - Right IJ CVL day #4 place 12/31 - Left radial arterial line day #4 place 12/31 Prophylaxis - GI - Pepcid - DVT - SCD/heparin subcutaneous Critical Care: The total critical care time was 35 minutes. Time to perform other separately billable procedures was not included in the critical care time. Yandel Garcias MD Jan 03, 2017 06:27
[2017-01-03] MEDS: ISOSORBIDE DINITRATE 10 MG TAB PO SCH ×3 (06:30→21:24)
[2017-01-03] MEDS: hydrALAZINE HCL 25 MG TAB PO SCH ×3 (06:30→21:24)
--- NOTE | 2017-01-03 06:41 | RADRPT ---
EXAM DATE/TIME: 01/03/2017 05:38 [facility] COMPARISON: CHEST SINGLE AP, January 02, 2017, 2:36. INDICATIONS : Evaluate for respiratory failure. MEDICAL HISTORY : Diabetes mellitus type II. Cardiovascular disease. Hypertension. SURGICAL HISTORY : Pacemaker. CABG. ENCOUNTER: Subsequent ACUITY: 1 week PAIN SCORE: Non-responsive. LOCATION: chest FINDINGS: Portable AP view of the chest demonstrates stable enlargement of the cardiac silhouette in this patie nt post median sternotomy. ETT, right subclavian central line, and NG tube remain present. Left chest wall cardiac pacing device is in place. The lungs are underinflated with mild bibasilar air space op acity. No pneumothorax is visualized. CONCLUSION: 1. Mild bibasilar opacity representing either atelectasis, consolidation, or pleural effusion. 2. Stable enlargement of the cardiac silhouette. Camden Brennan MD on January 03, 2017 at 6:38 Board Certified Radiologist. This report was verified electronically.
[2017-01-03] MEDS: CARVEDILOL 12.5 MG TAB PO SCH ×2 (09:00→21:00)
[2017-01-03] MEDS: AMPICILLIN/SULBAC 1500 MG/NS 100 ML IV SCH ×4 (09:20→21:23)
[2017-01-03] MEDS: CHLORHEXIDINE 0.12% (ORAL KIT) 15 ML CUP MT SCH ×2 (09:20→20:00)
[2017-01-03] MEDS: SENNOSIDES SYRUP 8.8 MG/5 ML CUP PO SCH ×2 (09:21→21:21)
[2017-01-03] MEDS: LINEZOLID 600 MG PREMIX 300 ML IV SCH ×2 (09:21→21:21)
[2017-01-03] MEDS: DOCUSATE SODIUM 100 MG/10 ML UDC G-TUBE SCH ×2 (09:21→21:23)
[2017-01-03] MEDS: SPIRONOLACTONE 25 MG TAB PO SCH (09:22)
[2017-01-03] MEDS: FAMOTIDINE 20 MG TAB PO SCH ×2 (09:22→21:23)
[2017-01-03] MEDS: SODIUM CHLORIDE 0.9% FLUSH 10 ML FLUSH SCH ×2 (09:23→21:00)
[2017-01-03] MEDS: ARTIFICIAL TEARS OPTH SOLN 15 ML BTL EACH EYE SCH ×3 (09:23→18:00)
--- NOTE | 2017-01-03 10:34 | HHI.PR ---
Subjective Patient symptoms today Pt seen and examined. Unable to extubate as of yet. For Bronch today. Objective Vital Signs Vital Signs Date Time Temp Pulse Resp B/P Pulse Ox O2 Delivery O2 Flow Rate FiO2 01/03/17 07:21 96 50 01/03/17 06:00 69 01/03/17 05:23 99 60 01/03/17 04:00 100 01/03/17 04:00 66 01/03/17 04:00 99.0 66 16 98 152/80 01/03/17 03:56 98 80 01/03/17 02:00 50 01/03/17 00:00 99.2 56 16 97 136/63 01/03/17 00:00 100 01/03/17 00:00 53 01/02/17 23:42 94 100 01/02/17 22:00 47 01/02/17 20:00 98.0 52 16 97 130/82 01/02/17 20:00 40 01/02/17 20:00 52 01/02/17 19:45 93 100 01/02/17 19:40 92 80 01/02/17 19:00 99 Mechanical Ventilator 100 01/02/17 18:00 40 01/02/17 18:00 71 01/02/17 16:00 98.0 74 28 94 129/79 01/02/17 16:00 40 01/02/17 16:00 74 01/02/17 15:40 95 50 01/02/17 14:00 60 01/02/17 13:40 95 50 01/02/17 13:40 50 01/02/17 12:00 97.5 60 17 94 159/67 01/02/17 12:00 60 01/02/17 12:00 40 01/02/17 10:51 92 50 Intake & Output 01/03/17 01/03/17 07:00 19:00 Intake Total 2123 ml Output Total 1050 ml Balance 1073 ml IV Total 1851 ml Lipid 272 ml Output Urine Total 1050 ml Stool Total 0 ml Result Diagram: 01/03/17 0325 01/03/17 0325 Imaging Last 24 hours Impressions Chest X-Ray 01/03/17 0600 Signed Impressions: Service Date/Time: Tuesday, January 03, 2017 05:38 - CONCLUSION: 1. Mild bibasilar opacity representing either atelectasis, consolidation, or pleural effusion. 2. Stable enlargement of the cardiac silhouette. Camden Brennan MD Objective Remarks Abd:soft,nt,nd Capps: urine clear Wound: moderate drainage noted. Scrotal erythema improved. 12/30 Abd:soft,nt,nd Capps with clear urine Scrotal erythema improved. 12/31 Abd:soft,nt,nd Capps with clear urine Dressings in place. Ext: neg C/C/E 01/02 Abd:soft,nt,nd Wound: clean with kay drains in place. 01/03 Abd:soft,nt,nd Wound looks clean. Small kay drain removed. Medications and IVs Current Medications Medications (Trade) Dose Ordered Sig/Abdiel Route Start Time Stop Time Status Last Admin (NS Flush) 2 ml UNSCH PRN .XX 12/28/16 20:15 (NS Flush) 2 ml BID .XX 12/28/16 21:00 01/03/17 09:23 (Tylenol) 650 mg Q6H PRN PO 12/28/16 20:15 12/29/16 13:42 (Tears Naturale Opth Soln) 1 drop TID EACH EYE 12/29/16 09:00 01/03/17 09:23 (Zofran Inj) 4 mg Q6H PRN IV 12/28/16 20:15 (Colace Liq) 100 mg Q12H G-TUBE 12/28/16 21:00 01/03/17 09:21 (Heparin Inj) 5,000 units Q8H SQ 12/28/16 22:00 01/03/17 06:00 Miscellaneous Information 1 Q361D XX 12/28/16 20:15 12/29/16 00:29 (Chlorhexidine 2% Cloth) Taper DAILY@04 TOP 12/29/16 04:00 12/25/17 03:59 01/03/17 04:00 (Chlorhexidine 2% Cloth) 3 pack UNSCH PRN TOP 12/28/16 20:15 (D50w (Vial) Inj) 25 ml UNSCH PRN IV PUSH 12/29/16 07:15 Oxycodone HCl 5 mg 5 mg Q4H PRN PO 12/29/16 15:00 01/01/17 20:42 (Unasyn Inj/NS Inj) 100 ml @ 200 mls/hr Q12H IV 12/30/16 21:00 01/03/17 09:20 (Lipitor) 40 mg HS PO 12/30/16 21:00 01/02/17 20:59 (Aldactone) 12.5 mg DAILY PO 12/31/16 09:00 01/03/17 09:22 (Pill Splitter) 1 ea UNSCH PRN OTHER 12/30/16 12:15 (Lasix Inj) 40 mg BID@09,18 IV PUSH 12/31/16 09:00 Hold (Pepcid) 10 mg BID PO 12/31/16 21:00 01/03/17 09:22 Chlorhexidine Gluconate 15 ml 15 ml BID@08,20 MT 12/31/16 20:00 01/03/17 09:20 Propofol 100 ml @ 0 mls/hr TITRATE IV 12/31/16 16:00 01/03/17 09:21 (Zyvox 600 Mg Premix) 300 ml @ 300 mls/hr Q12H IV 01/01/17 08:00 01/03/17 09:21 Insulin Human Regular 1 1 Q4HR SQ 01/01/17 12:00 01/03/17 09:19 (NS 1000 ml Inj) 1,000 ml @ 100 mls/hr Q10H IV 01/01/17 18:45 01/03/17 00:45 (Trandate Inj) 10 mg Q1HR PRN IV PUSH 01/02/17 08:00 (Apresoline Inj) 10 mg Q1HR PRN IV PUSH 01/02/17 08:00 01/02/17 15:44 Nitroglycerin 2 inch 2 inch Q6HR PRN TOPICAL 01/02/17 08:00 01/02/17 08:44 (Precedex Inj/NS Inj) 50 ml @ 0 mls/hr TITRATE IV 01/02/17 12:27 01/02/17 15:42 (Dilaudid Pf Inj) 1 mg Q2H PRN IV PUSH 01/02/17 16:00 (Coreg) 25 mg BID PO 01/03/17 09:00 (SoluMEDROL INJ) 60 mg BID IV PUSH 01/03/17 09:00 01/03/17 09:23 (Senna Liq) 8.8 mg BID PO 01/03/17 09:00 01/03/17 09:21 (Apresoline) 25 mg Q8HR PO 01/03/17 06:30 (Isordil) 10 mg Q8HR PO 01/03/17 06:30 Assessment and Plan Assessment and Plan 71-year-old male with perineal/rectal abscess; 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 Patient will require IR intervention for debridement with washout. Risk and benefits discussed and patient is willing to proceed. 12/29 71 y.o male s/p debridement and washout of necrotizing fascitis Will plan to return to OR tomorrow for washout NPO after MN 12/30 71 y.o. male s/p debridement with washout of necrotizing fascitis OR today for washout. NPO 12/31 71 y.o. male s/p debridement with washout of necrotizing fascitis For washout with closure tomorrow in OR. NPO 01/02 Stable s/p debridement and washout of necrotizing fascitis Extubate today per SICU attending Will remove kay in a few days. 01/03 Stable s/p debridement and washout of necrotizing fascitis For Bronchoscopy today. Hopeful extubation soon. Will remove kay drains over weekend. Tim Ling DO Jan 03, 2017 10:34
[2017-01-03] MEDS ORDERED: ROCURONIUM INJ 100 MG/10 ML VIAL IV ONE (11:00)
--- NOTE | 2017-01-03 12:08 | PD.PROCEDR ---
Procedure Note Procedure DATE: 01/03/2017 Fiberoptic bronchoscopy: INDICATION: COPD/difficulty weaning from ventilator CONSENT Informed consent for procedure was obtained.. DESCRIPTION OF THE PROCEDURE The patient was placed at 30. Ventilator was using PRVC ventilation with FiO2 100%. Patient was anesthetized using propofol at 50 mcg/kg/m. Paralytic provided was rocuronium and 50 mg IV 1. I entered the 8.0 ET tube with fiberoptic bronchoscope. The ETT tube was coated with thick white secretions. The bronchoscope was advanced to the owen which was sharp. It was then advanced to the left mainstem and its subsegments segments, large thick white mucous plug in the left lower lobe. This was suctioned after wedging with copious amounts of sterile saline. This was sent off for appropriate sample see orders. Left upper lingula and lower lobe were visualized. The mucosa was normal. This again was suctioned with copious amounts of sterile saline with thick white secretions. There is most most thick white secretions in these second and third sub segments which were all suctioned to clear with sterile saline. There were no other findings including evidence of mass, anatomic distortions or hemorrhage. The bronchoscope was subsequently withdrawn and advanced into the right mainstem. Each segment was evaluated and were well visualized. The right upper lobe anatomy was within normal limits. No specific masses or other lesions were identified. On the medial aspect between the right upper and middle/lower lobe was bulging and erythematous lesion. See photograph. . The bronchoscope was then advanced past the bronchus intermedius to the right middle and right lower lobe. No lesions were identified in these segments. Multiple mucous plugs throughout) Lower lobe were lavaged to the second and third subsegments. Scope was withdrawn and procedure was halted. Saturations remain between 98 and 100% throughout the procedure. Follow-up chest x-ray pending. ESTIMATED BLOOD LOSS: Minimal COMPLICATIONS: No apparent complications. Yandel Garcias MD Jan 03, 2017 12:08
[2017-01-03 13:18] LABS: BRONCHOALVEOLAR LAVAGE RBC 6 /MM3; BRONCHOALVEOLAR LAVAGE WBC 49 /MM3; BRONCHOAVEOLAR HISTIOCYTES 3 %; BRONCHOAVEOLAR LYMPHOCYTES 3 %; BRONCHOAVEOLAR NEUTROPHILS 86 %; LAVAGE TOTAL WBC COUNT 0.8 MILLION (4.7-7.1)
--- NOTE | 2017-01-03 15:27 | RADRPT ---
EXAM DATE/TIME: 01/03/2017 13:13 [facility] COMPARISON: CHEST SINGLE AP, January 03, 2017, 5:38. INDICATIONS : Post bronchoscopy MEDICAL HISTORY : Congestive heart failure. Hypercholesterolemia. Myocardial infarction. Coronary artery disease, h ypertension SURGICAL HISTORY : CABG. Pacemaker. Coronary artery stent. ENCOUNTER: Initial ACUITY: 4 - 6 days PAIN SCORE: Non-responsive. LOCATION: Bilateral cranial FINDINGS: ET tube, pacer, central venous catheter in good position. Heart is enlarged. Mild interstitial prom inence is evident. Minimal bibasilar consolidative changes are noted. CONCLUSION: Cardiomegaly with minimal bibasilar prominence, stable in the interval. Aba Dick MD FACR on January 03, 2017 at 15:23 Board Certified Radiologist. This report was verified electronically.
[2017-01-03] MEDS: ATORVASTATIN 40 MG TAB PO SCH (21:23)
--- NOTE | 2017-01-03 23:31 | HHI.IDPN ---
Subjective Subjective Remarks Late entry Pt was seen earlier today aroud 3:30 frida Chart reviewed is a 71-year CM with PMHx of Diabetes who is on Tanzeum (GLP 1 agonist effects last upto once a week: its a subq injection). Patient reports he has been on this medication as despite good diet and compliance with meds his A1C was 7.7. He also reports history of pacemaker and defibrillator placement in 2016. He presents to the hospital due to testicular swelling. Patient reports swelling, discomfort and pain in the testicular area. He could not see it and does not know if he had a skin lesion prior to this episode at that site. He does report prior infections in the groin region. He also noted that her sugars has been slightly elevated. Denies any fevers. He has been feeling generally weak as well. ID consulted for sepsis, fourniers gangrene. Dw RN doing better On CPAP sp BAL yday few mucus plugs No fever No rash No diarrhea Antibiotics Unasyn IV Clinda oral Lines Line sites with no e.o infection Past Medical History reviewed. Allergies: Coded Allergies: No Known Allergies (Verified , 12/28/16) Objective . Vital Signs Date Time Temp Pulse Resp B/P Pulse Ox O2 Delivery O2 Flow Rate FiO2 01/03/17 20:15 95 50 01/03/17 20:00 54 01/03/17 20:00 50 01/03/17 20:00 97.7 54 16 94 01/03/17 19:00 94 Mechanical Ventilator 50 01/03/17 18:00 75 01/03/17 16:00 98.1 86 19 125/83 97 01/03/17 16:00 40 01/03/17 16:00 86 01/03/17 15:16 91 45 01/03/17 14:00 75 01/03/17 13:41 40 01/03/17 13:30 40 01/03/17 12:12 100 100 01/03/17 12:10 94 40 01/03/17 12:00 66 01/03/17 12:00 98.1 66 16 123/83 94 01/03/17 12:00 40 01/03/17 10:00 72 01/03/17 08:00 50 01/03/17 08:00 98.4 60 16 147/74 96 01/03/17 08:00 60 01/03/17 07:21 96 50 01/03/17 07:00 96 Mechanical Ventilator 50 01/03/17 06:00 69 01/03/17 05:23 99 60 01/03/17 04:00 100 01/03/17 04:00 66 01/03/17 04:00 99.0 66 16 98 152/80 01/03/17 03:56 98 80 01/03/17 02:00 50 01/03/17 00:00 99.2 56 16 97 136/63 01/03/17 00:00 100 01/03/17 00:00 53 01/02/17 23:42 94 100 01/02/17 01/02/17 01/03/17 15:00 23:00 07:00 Intake Total 1742 ml 701 ml 1422 ml Output Total 1600 ml 450 ml 600 ml Balance 142 ml 251 ml 822 ml IV Total 1742 ml 632 ml 1219 ml Lipid 69 ml 203 ml Output Urine Total 1600 ml 450 ml 600 ml Stool Total 0 ml 0 ml 0 ml . Laboratory Tests Test 01/02/17 01/03/17 04:13 03:25 White Blood Count 6.5 TH/MM3 7.1 TH/MM3 Red Blood Count 4.01 MIL/MM3 4.29 MIL/MM3 Hemoglobin 11.1 GM/DL 11.6 GM/DL Hematocrit 32.8 % 35.5 % Mean Corpuscular Volume 81.9 FL 82.7 FL Mean Corpuscular Hemoglobin 27.8 PG 27.1 PG Mean Corpuscular Hemoglobin 33.9 % 32.8 % Concent Red Cell Distribution Width 19.0 % 18.2 % Platelet Count 166 TH/MM3 164 TH/MM3 Mean Platelet Volume 7.9 FL 8.4 FL Neutrophils (%) (Auto) 81.5 % 86.0 % Lymphocytes (%) (Auto) 14.0 % 9.9 % Monocytes (%) (Auto) 4.3 % 3.9 % Eosinophils (%) (Auto) 0.0 % 0.0 % Basophils (%) (Auto) 0.2 % 0.2 % Neutrophils # (Auto) 5.3 TH/MM3 6.1 TH/MM3 Lymphocytes # (Auto) 0.9 TH/MM3 0.7 TH/MM3 Monocytes # (Auto) 0.3 TH/MM3 0.3 TH/MM3 Eosinophils # (Auto) 0.0 TH/MM3 0.0 TH/MM3 Basophils # (Auto) 0.0 TH/MM3 0.0 TH/MM3 CBC Comment DIFF FINAL DIFF FINAL Differential Comment Laboratory Tests Test 01/02/17 01/02/17 01/02/17 01/03/17 04:12 04:13 16:07 03:25 Lactic Acid Level 1.0 mmol/L Sodium Level 144 MEQ/L 144 MEQ/L Potassium Level 3.4 MEQ/L 3.6 MEQ/L 3.9 MEQ/L Chloride Level 107 MEQ/L 107 MEQ/L Carbon Dioxide Level 27.0 MEQ/L 26.2 MEQ/L Anion Gap 10 MEQ/L 11 MEQ/L Blood Urea Nitrogen 88 MG/DL 72 MG/DL Creatinine 2.67 MG/DL 1.78 MG/DL Estimat Glomerular Filtration 24 ML/MIN 38 ML/MIN Rate Random Glucose 215 MG/DL 217 MG/DL Calcium Level 7.9 MG/DL 7.8 MG/DL Phosphorus Level 4.2 MG/DL 3.6 MG/DL Magnesium Level 2.9 MG/DL 2.7 MG/DL Total Bilirubin 0.4 MG/DL 0.3 MG/DL Aspartate Amino Transf 17 U/L 22 U/L (AST/SGOT) Alanine Aminotransferase 21 U/L 20 U/L (ALT/SGPT) Alkaline Phosphatase 82 U/L 80 U/L Troponin I 0.13 NG/ML Total Protein 5.6 GM/DL 5.3 GM/DL Albumin 2.0 GM/DL 1.8 GM/DL Microbiology Date/Time Procedure Status Source Growth 01/03/17 12:05 Gram Stain - Final Resulted Bronchial Washings Right Lower Lobe 01/03/17 12:05 Bronchial Culture Resulted Bronchial Washings Right Lower Lobe Pending 01/03/17 12:05 Acid Fast Stain Received Bronchial Washings Right Lower Lobe Pending 01/03/17 12:05 Mycobacterial Culture Received Bronchial Washings Right Lower Lobe Pending 01/03/17 12:05 Fungal Smear - Final Resulted Bronchial Washings Right Lower Lobe NO FUNGAL ELEMENTS SEEN. 01/03/17 12:05 Fungal Culture Resulted Bronchial Washings Right Lower Lobe Pending Imaging Last Impressions Chest X-Ray 01/03/17 0600 Signed Impressions: Service Date/Time: Tuesday, January 03, 2017 05:38 - CONCLUSION: 1. Mild bibasilar opacity representing either atelectasis, consolidation, or pleural effusion. 2. Stable enlargement of the cardiac silhouette. Camden Brennan MD Renal Ultrasound 01/01/17 0000 Signed Impressions: Service Date/Time: Sunday, January 01, 2017 09:12 - CONCLUSION: Normal examination. Sushil Abdi Jr., MD Scrotum Ultrasound 12/28/16 1246 Signed Impressions: Service Date/Time: Wednesday, December 28, 2016 14:05 - CONCLUSION: 1. Marked thickening of the scrotal wall, up to 2.4 cm on the right. 2. Small complex left hydrocele. 3. Small complex cysts right testicle. Positive testicular blood flow. Nael Scott MD Abdomen/Pelvis CT 12/28/16 1237 Signed Impressions: Service Date/Time: Wednesday, December 28, 2016 14:52 - CONCLUSION: 1. 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 2. Mild bilateral inguinal adenopathy and marked scrotal wall thickening. 3. Fat-containing 5.7 cm umbilical hernia. 4. Atherosclerotic aorta with some displaced intimal calcifications but without significant aneurysm. No bowel obstruction. Mild ileus. Nael Scott MD Physical Exam GENERAL: Obese, CM patient, in no apparent distress. SKIN: No rashes. HEAD: Atraumatic. Normocephalic. No temporal or scalp tenderness. EYES: Pupils equal round and reactive. Extraocular motions intact. No scleral icterus. No injection or drainage. ENT: Intubated NECK: Trachea midline. Supple, nontender, no meningeal signs. CARDIOVASCULAR: Regular rate and rhythm without murmurs, gallops, or rubs. RESPIRATORY: Clear to auscultation. Breath sounds equal bilaterally. GASTROINTESTINAL: Abdomen soft, non-tender, nondistended. Umbilical hernia noted. MUSCULOSKELETAL: Extremities without clubbing, cyanosis, or edema. Scrotal area with erythema noted. Packing noted. NEUROLOGICAL: Sedated Psych: could not be assessed. IV line sites with no e.o infection. 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 E.faecalis, E.coli and Coag neg staph infection. Pulm edema: on vent Acute resp failure on Vent Grp D Enterococcus vs Strep in wound. Gram negative infection in groin. Grp A Strep in urine: 5 day course. Diabetes Mellitus uncontrolled. H/o recurrent groin area infections. Acute renal failure: prerenal, sepsis. CAD, CABG, s/p defibrillator and pacemaker. Ef 20% on ECHO this admit per tech. Recs: Continue Unasyn IV Continue Clindamycin oral (stop at 5 days no Grp A strep or MRSA identified so no further risk for toxin production) cont Zyvox IV (ASP: Coag neg stap in intra op cultures, Acute renal failure) Follow cultures Follow clinically. d/w Dorcas Valero MD Jan 03, 2017 23:31
[2017-01-04] VITALS (19 sets, daily range): BP systolic 101–192; BP diastolic 52–86; PULSE 50–91; RESP 13–22; TEMP 97.8–98.8; O2SAT 92–97
[2017-01-04] MEDS: INSULIN NovoLIN REGULAR SUPPLEMENTAL SCALE SQ SCH ×6 (01:10→20:57)
[2017-01-04] MEDS: RESP: ALBUTEROL 2.5 MG/IPRATROPIUM 0.5 MG NEB (SCH) NEB ×7 (01:45→23:13)
[2017-01-04] MEDS: CHLORHEXIDINE GLUCONATE 2 % 1 PACK (2 CLOTHS) TOP SCH ×2 (04:00→20:37)
[2017-01-04 04:39] LABS: AUTOMATED NEUTROPHIL # 7.1 TH/MM3 (1.8-7.7); BASOPHIL % 0.4 % (0.0-2.0); HEMATOCRIT 35.9 % (39.0-51.0); LYMPH % 12.2 % (9.0-44.0); MEAN CELL VOLUME 83.1 FL (80.0-100.0); MEAN CORPUSCULAR HEMOGLOBIN 26.6 PG (27.0-34.0); MONO % 4.1 % (0.0-8.0); NEUT % 83.3 % (16.0-70.0); PLATELET COUNT 195 TH/MM3 (150-450); RED BLOOD COUNT 4.32 MIL/MM3 (4.50-5.90); RED CELL DISTRIBUTION WIDTH 18.7 % (11.6-17.2); WHITE BLOOD COUNT 8.5 TH/MM3 (4.0-11.0)
[2017-01-04 04:54] LABS: ALKALINE PHOSPHATASE 78 U/L (45-117); ALT (GPT) 28 U/L (12-78); ANION GAP 8 MEQ/L (5-15); AST (GOT) 27 U/L (15-37); BICARBONATE 27.9 MEQ/L (21.0-32.0); BLOOD UREA NITROGEN 59 MG/DL (7-18); CHLORIDE 110 MEQ/L (98-107); GLOMERULAR FILTRATION RATE 45 ML/MIN (>89); MAGNESIUM 2.6 MG/DL (1.5-2.5); POTASSIUM 3.9 MEQ/L (3.5-5.1); SODIUM (NA) 146 MEQ/L (136-145); TOTAL BILIRUBIN ADULT 0.3 MG/DL (0.2-1.0)
[2017-01-04 05:02] LABS: HEMO FLAGS AUTO DIFF
--- NOTE | 2017-01-04 05:10 | RADRPT ---
EXAM DATE/TIME: 01/04/2017 03:19 [facility] COMPARISON: CHEST SINGLE AP, January 03, 2017, 13:13. INDICATIONS : Shortness of breath. MEDICAL HISTORY : Hypertension. Congestive heart failure. Myocardial infarction. Coronary artery disease. SURGICAL HISTORY : Pacemaker. CABG. Coronary artery stent. ENCOUNTER: Subsequent ACUITY: 1 week PAIN SCORE: Non-responsive. LOCATION: Bilateral chest FINDINGS: Portable AP view of the chest demonstrates enlargement of the cardiac silhouette in this patient post median sternotomy. Left chest wall cardiac pacing device remains present. ETT, NG tube, and right pearson bclavian central line remain present. There are stable bibasilar pleural-parenchymal opacities. No pn eumothorax is identified. CONCLUSION: Stable chest x-ray with bibasilar opacities likely representing pleural effusions with associated vol ume loss and/or airspace consolidation. Camden Brennan MD on January 04, 2017 at 5:08 Board Certified Radiologist. This report was verified electronically.
[2017-01-04] MEDS: hydrALAZINE HCL 25 MG TAB PO SCH ×3 (05:37→20:56)
[2017-01-04] MEDS: ISOSORBIDE DINITRATE 10 MG TAB PO SCH ×3 (05:37→20:56)
[2017-01-04] MEDS: HEPARIN SODIUM - SQ 10,000 UNITS/ML VIAL SQ SCH ×3 (05:38→20:54)
[2017-01-04] MEDS: SODIUM CHLOR 0.9% 1000 ML INJ 1,000 ML IV SCH (05:39)
[2017-01-04 06:46] LABS: OVALOCYTES 1+ (NORMAL); SCAN/DIFF AUTO DIFF CONFIRMED
[2017-01-04] MEDS: AMPICILLIN/SULBAC 1500 MG/NS 100 ML IV SCH ×2 (08:44)
[2017-01-04] MEDS: DEXMEDETOMIDINE INJ 200 MCG in SODIUM CHLORIDE 0.9% INJ 48 ML IV SCH (08:44)
[2017-01-04] MEDS: CHLORHEXIDINE 0.12% (ORAL KIT) 15 ML CUP MT SCH ×2 (08:44→20:00)
[2017-01-04] MEDS: LINEZOLID 600 MG PREMIX 300 ML IV SCH ×2 (08:44→20:55)
[2017-01-04] MEDS: hydrALAZINE HCL 20 MG/ML VIAL IV PUSH PRN (08:45)
[2017-01-04] MEDS: methylPREDNISolone SOD SUCC 125 MG/2 ML VIAL IV PUSH SCH ×2 (08:45→20:54)
[2017-01-04] MEDS: DOCUSATE SODIUM 100 MG/10 ML UDC G-TUBE SCH ×2 (08:45→20:54)
[2017-01-04] MEDS: CARVEDILOL 12.5 MG TAB PO SCH ×2 (08:45→20:56)
[2017-01-04] MEDS: SENNOSIDES SYRUP 8.8 MG/5 ML CUP PO SCH ×2 (08:45→20:55)
[2017-01-04] MEDS: SPIRONOLACTONE 25 MG TAB PO SCH (08:46)
[2017-01-04] MEDS: FAMOTIDINE 20 MG TAB PO SCH ×2 (08:46→20:55)
[2017-01-04] MEDS: SODIUM CHLORIDE 0.9% FLUSH 10 ML FLUSH SCH ×2 (08:46→20:57)
[2017-01-04] MEDS: ARTIFICIAL TEARS OPTH SOLN 15 ML BTL EACH EYE SCH ×3 (08:46→16:20)
[2017-01-04] MEDS: RESP: ALBUTEROL 2.5 MG/IPRATROPIUM 0.5 MG NEB (PRN) INH (09:33)
[2017-01-04] MEDS ORDERED: MINERAL OIL LIQUID 30 ML CUP PO ONE (10:00)
[2017-01-04] MEDS ORDERED: GLYCERIN ADULT 2 GM SUPP RECTAL ONE (10:00)
--- NOTE | 2017-01-04 10:13 | HHI.CCPN ---
Subjective Remarks/Hospital Course 71-year-old male presents for evaluation of testicular swelling. Approximately 10 days ago he was started on Aldactone for his blood pressure which. He also noted that her sugars has been slightly elevated. Denies any fevers. He has been feeling generally weak as well. Denied abdominal pain nausea vomiting or diarrhea. He thought the scrotal swelling was from the Aldactone and came into the emergency department to be evaluated. 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 remains intubated overnight. off vasopressors. 12/30: Much more comfortable. Back to OR for washout today. Breathing without distress. STEFFEN improving. Patient has dilated cardiomyopathy with severe systolic heart failure and EF 25-30% by last ECHO 2013. May need low-dose inotrope during course of therapy. 12/30 1800 hrs: Seen after OR today. He has full neck veins and light wheezes with basilar crackles. His underlying LV dysfunction requires that we treat this aggressively with diuretics and subsequent electrolyte replacement. Will move back to [facility]. 12/31: Required rapid response for 2nd time in 12 hours. Will need intubation due to severe systolic heart failure and pulmonary edema. 01/01: Afebrile. Remains nothing by mouth for planned washout today. Decreased urine output noted. Hypertensive with sedation vacation. 01/02: Yesterday with washout and debridement without complication. Continues to be in A. fib intermittently rate controlled. Hemodynamically stable. One bowel movement. Will try spontaneous breathing trials today and attempt to extubate. If unsuccessful will initiate tube feeding. 01/03: Tmax 99.2. Episode of desaturation overnight recording FiO2 100%. Currently back to 50%. Chest x-ray essentially stable. Small left pleural effusion. Low lung volumes. Remains in a flutter rate controlled. Imminently bradycardic. 3 bowel movements on 01/02. Tolerating tube feeding. Subjective: 01/04: FiO2 currently at 50%. We'll check CT chest. Possible need pleural effusions. Remains in a flutter rate control. Intermittently bradycardic. No bowel movement yesterday. Tube feeds currently off for possible extubation but tolerating previously. Afebrile Objective Vital Signs Date Time Temp Pulse Resp B/P Pulse Ox O2 Delivery O2 Flow Rate FiO2 01/04/17 06:00 50 01/04/17 04:00 50 01/04/17 04:00 98.6 15 172/83 95 01/03/17 19:00 Mechanical Ventilator 12/31/16 08:50 6.00 Intake and Output 01/03/17 01/03/17 01/04/17 08:00 16:00 00:00 Intake Total 1422 ml 1398 ml 880 ml Output Total 600 ml 550 ml 500 ml Balance 822 ml 848 ml 380 ml Result Diagram: 01/04/17 0415 01/04/17 0415 Other Results Microbiology Date/Time Procedure Status Source Growth 01/03/17 12:05 Gram Stain - Final Resulted Bronchial Washings Right Lower Lobe 01/03/17 12:05 Bronchial Culture Resulted Bronchial Washings Right Lower Lobe Pending 01/03/17 12:05 Fungal Smear - Final Resulted Bronchial Washings Right Lower Lobe NO FUNGAL ELEMENTS SEEN. 01/03/17 12:05 Fungal Culture Resulted Bronchial Washings Right Lower Lobe Pending 01/03/17 12:05 Acid Fast Stain Received Bronchial Washings Right Lower Lobe Pending 01/03/17 12:05 Mycobacterial Culture Received Bronchial Washings Right Lower Lobe Pending 12/31/16 14:20 Gram Stain Received Sputum Endotracheal Pending 12/31/16 14:20 Sputum Culture Received Sputum Endotracheal Pending Imaging Last Impressions Chest X-Ray 01/04/17 0600 Signed Impressions: Service Date/Time: Wednesday, January 04, 2017 03:19 - CONCLUSION: Stable chest x-ray with bibasilar opacities likely representing pleural effusions with associated volume loss and/or airspace consolidation. Camden Brennan MD Renal Ultrasound 01/01/17 0000 Signed Impressions: Service Date/Time: Sunday, January 01, 2017 09:12 - CONCLUSION: Normal examination. Sushil Abdi Jr., MD Scrotum Ultrasound 12/28/16 1246 Signed Impressions: Service Date/Time: Wednesday, December 28, 2016 14:05 - CONCLUSION: 1. Marked thickening of the scrotal wall, up to 2.4 cm on the right. 2. Small complex left hydrocele. 3. Small complex cysts right testicle. Positive testicular blood flow. Nael Scott MD Abdomen/Pelvis CT 12/28/16 1237 Signed Impressions: Service Date/Time: Wednesday, December 28, 2016 14:52 - CONCLUSION: 1. 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 2. Mild bilateral inguinal adenopathy and marked scrotal wall thickening. 3. Fat-containing 5.7 cm umbilical hernia. 4. Atherosclerotic aorta with some displaced intimal calcifications but without significant aneurysm. No bowel obstruction. Mild ileus. Nael Scott MD Objective Remarks GENERAL: 71-year-old male, critically ill currently orotracheally intubated SKIN: Warm and dry. No rash HEAD: Normocephalic. EYES: Pupils are 4 mm bilaterally and reactive. No scleral icterus. No injection or drainage. NECK: trachea midline.Supple. Right subclavian clean dry and intact CARDIOVASCULAR: Bradycardia, IR. S1, S2 no S4. Without murmur RESPIRATORY: Diminished breath sounds due to body habitus. Few crackles appreciated in the bases bilaterally. GASTROINTESTINAL: Abdomen soft, non-tender, obese. Hypoactive bowel sounds appreciated MUSCULOSKELETAL: Currently with trace bilateral lower extremity pitting edema. Dorsalis pedis and posterior tibials are palpable bilaterally : Minimal scrotal edema. Packing which is clean and dry in the groin. A pimentel exits the penis meatus intact without blood. [address] [place] [address] NEURO: Cranial nerves II through XII grossly intact. Moves all 4 extremities spontaneously. Withdraws to pain. 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 Currently at 0.5 mcg/kg per minute Goal of RASS -2 Daily sedation vacation Not on home medications for underlying psychiatric diagnosis. CV: Congestive heart failure/systolic ejection fraction 25% 2013 Limited echo EF 35-40% with akinesis apical myocardium History of CABG 4 Hypertension Dyslipidemia History of single-chamber defibrillator 08/19 due to positive EPS study Currently on normal saline at 100 cc an hour. We'll discontinue today Holding valsartan 320 mg by mouth daily for hypertension due to acute kidney injury Continue Lipitor 40 mg by mouth daily/home medication for dyslipidemia On Coreg 50 mg by mouth twice a day at home for hypertension - decreased to 25 twice a day yesterday with underlying bradycardia We'll order hydralazine 25 3 times a day/Isordil 10 every 8 as adjuvant while creatinine elevated Milrinone was discontinued 01/01 due to dysrhythmias Echo 2013 - EF 25-30%. No regional wall motion abnormality. Left atrium dilated Limited echo 2016 reveals EF 35-40%. Akinesis apical myocardium. Left atrium mild dilatated. Mild MR. At home on Lasix 40 mg by mouth twice a day. 60 milligrams IV Lasix held due to worsening renal function Given 2 doses of digoxin 0.25 mg IV 1. Recheck digoxin level in a.m. was less than 0.4 We'll consult cardiology for underlying atrial flutter. Likely will need full dose anticoagulation soon if okay with urology Resp: Acute hypoxemic respiratory failure Ongoing tobaccoism PRVC 16/60/0.85/5/50 Ventilator bundle Bronchodilator therapy every 4 hours and as needed Spontaneous breathing trials today. Adequate weaning parameters however FiO2 50 % Solu-Medrol 60 IV every 12 hours Follow-up chest x-ray GI: Gastroesophageal reflux disease 5.7 cm umbilical hernia Glucerna 1.5 goal 55 cc an hour Pepcid 10 mg twice a day for GI prophylaxis. On Prilosec 20 mg by mouth daily at home Colace/senna twice a day for bowel regimen Umbilical hernia seen on CT is reducible with no signs of strength inhalation : Becca's gangrene BPH Postop day #7 I&D 4 for Becca's gangrene/ necrotizing fasciitis posterior scrotum, perineum and right perirectal tissue Postop day #5 washout and debridement for his gangrene Postoperative day #3 washout and debridement of gangrene with placement of 4 [place] drains 12/28 revealed gas in his perineum/scrotum and the right gluteal cleft. Followed by urology/Dr. Sushil Stein: Diabetes mellitus Gout Holding Tanzeum 50 mg subcutaneous weekly. Holding allopurinol 200 mg by mouth daily for gout Sliding scale insulin with Accu-Cheks every 4 hours to maintain euglycemia. 16 units of sliding scale insulin past 24 hours Renal: Acute kidney injury - baseline creatinine 1.[address] revealed no signs of hydronephrosis. Urine eosinophils negative. Renal ultrasound revealed no hydronephrosis Creatinine currently 1.6 and downward trending. No indications for hemodialysis at this point. Heme: Normocytic anemia Daily CBC. Monitor trends Transfuse 2 units PRBCs during this hospital sedation. No current indication for transfusion of blood proximally at this time. ID: Becca's gangrene Group A beta strep UTI Unasyn 1.5 IV every 6 hours Clindamycin 300 mg by mouth every 6 hours completed 01/02 Zyvox day #4 Pertinent cultures Sputum - 12/31 -no growth Abdomen abscess - 12/28 - Escherichia coli, E faecalis and coag negative staph Abdomen abscess - 12/28 - acid-fast bacilli/fungus negative Blood cultures 2 - 12/28 - no growth Urine culture - 12/28 -group A beta strep Infectious disease consulted. FEN: Hyper-magnesium Hypokalemia - resolved Replace electrolytes as clinically indicated A.m. laboratories pending MSK: PT/OT evaluate and treat Access - Right IJ CVL day #5 place 3 - Left radial arterial line day #5 place 3 Prophylaxis - GI - Pepcid - DVT - SCD/heparin subcutaneous Critical Care: The total critical care time was 35 minutes. Time to perform other separately billable procedures was not included in the critical care time. Yandel Garcias MD Jan 04, 2017 10:13
[2017-01-04] MEDS: POLYETHYLENE GLYCOL 17 GM PKG PEG SCH ×2 (10:42→20:55)
[2017-01-04] MEDS: PROPOFOL 1000 MG/100 ML INJ 100 ML IV SCH ×3 (10:42→16:20)
--- NOTE | 2017-01-04 12:32 | RADRPT ---
EXAM DATE/TIME: 01/04/2017 12:03 [facility] COMPARISON: No previous studies available for comparison. INDICATIONS : Evaluate for effusion. RADIATION DOSE: 13.86 CTDIvol (mGy) MEDICAL HISTORY : Cardiovascular disease. Congestive heart failure. Hypertension. SURGICAL HISTORY : None. ENCOUNTER: Initial ACUITY: 1 day PAIN SCALE: Non-responsive LOCATION: Bilateral chest TECHNIQUE: Volumetric scanning of the chest was performed. Using automated exposure control and adjustment of t he mA and/or kV according to patient size, radiation dose was kept as low as reasonably achievable to obtain optimal diagnostic quality images. FINDINGS: There are small bilateral pleural effusions with consolidative changes present in both lung bases. P acer is implanted in the left chest. There is no axillary or mediastinal adenopathy. Extensive earnestine nary artery calcifications are noted. There is mild compensated cardiomegaly. Trace ascites is evident. CONCLUSION: 1. Consolidative changes with small bilateral pleural effusions in both bases. 2. Extensive coronary artery calcifications. Aba Dick MD FACR on January 04, 2017 at 12:23 Board Certified Radiologist. This report was verified electronically.
[2017-01-04] MEDS: LACTULOSE SYRUP 20 GM/30 ML CUP PO SCH ×3 (13:18→20:54)
[2017-01-04] MEDS: AMPICILLIN-SULBACTAM INJ 1,500 MG in SODIUM CHLORIDE 0.9% INJ 100 ML IV SCH ×2 (15:39→20:55)
[2017-01-04] MEDS: RESP: BUDESONIDE 0.5 MG/2 ML NEB NEB SCH (19:41)
[2017-01-04] MEDS: ATORVASTATIN 40 MG TAB PO SCH (20:56)
[2017-01-04] MEDS ORDERED: GLYCERIN ADULT 2 GM SUPP RECTAL PRN (21:00)
--- NOTE | 2017-01-04 22:24 | MB ---
cc: ANDREI RANDHAWA M.D. DATE OF CONSULTATION 01/04/17 REASON FOR CONSULTATION Congestive heart failure, atrial flutter. HISTORY OF PRESENT ILLNESS Mr. Mandel is a 71-year-old gentleman with history of diabetes mellitus, high blood pressure, hyperlipidemia, obesity, chronic smoker, coronary artery disease, coronary artery bypass grafting who was seen in the [place] clinic, was transferred to the hospital on the due to testicular swelling. Becca was diagnosed. IV antibiotic was initiated. The patient went to Becca gangrene debridement. During hospitalization, he was put on Milrinone. Ejection fraction was around 30-35%, the last one was around 35%. Also, that was during the hospitalization. The patient developed atrial flutter and also episode of self-limited ventricular tachycardia. I was consulted for evaluation and management. The chart was reviewed. The patient was evaluated. Most of the information obtained from medical record. The patient is on mechanical ventilation. ALLERGIES None reported. SOCIAL HISTORY The patient is a smoker. FAMILY HISTORY Noncontributory to his current medical condition. MEDICATIONS 1. Unasyn 1500 mg twice a day. 2. Precedex 3. Linezolid 600 mg q.12 h 4. IV Propofol 5. Tylenol 6. Albuterol. 7. Tear drops 8. Lipitor 40 mg a day 9. Coreg 25 mg twice a day. 10. Famotidine 10 mg twice a day. 11. Lasix. 12. Heparin. 13. Hydralazine 14. Dilaudid 15. Insulin 16. Isordil 10 mg q8 hr. 17. Labetalol p.r.n. 18. Methylprednisone. 19. Reglan 20. Aldosterone 12.5 mg a day. REVIEW OF SYSTEMS Could not be done. The patient on mechanical ventilation. PHYSICAL EXAMINATION GENERAL: Sedated on mechanical ventilation. VITAL SIGNS: Blood pressure was 105/64, pulse 77, respiratory rate controlled by the ventilator. LUNGS: Ventilated CARDIOVASCULAR: S1-S2 irregular. No gallop. ABDOMEN: Soft. No mass. EXTREMITIES: No edema. CARDIOLOGY STUDIES Electrocardiogram showed atrial flutter, diffuse ST changes. LABORATORY DATA White blood cell 8.5, hemoglobin 11.5, potassium 3.9, creatinine 1.53. ASSESSMENT AND RECOMMENDATIONS Mr. Mandel is currently stable. Heart rate is controlled. He is on a beta henrique, Aldactone and TERESA inhibitor. At this point, my recommendation is continue with current medical management. The gentleman will need in the future an ischemic workup when fully recuperated. For now, will be observed. Because heart rate controlled, no need for further intervention for the atrial flutter at this point. Continue with current management. I will follow him during hospitalization. MD NOLA Thomas/ /9:48 PM /10:15 PM
[2017-01-05] VITALS (18 sets, daily range): BP systolic 109–181; BP diastolic 58–80; PULSE 52–101; RESP 16–23; TEMP 98.2–98.7; O2SAT 91–99
[2017-01-05] MEDS: RESP: ALBUTEROL 2.5 MG/IPRATROPIUM 0.5 MG NEB (SCH) NEB ×5 (03:29→20:00)
[2017-01-05] MEDS: hydrALAZINE HCL 20 MG/ML VIAL IV PUSH PRN ×2 (03:59→10:47)
[2017-01-05] MEDS: HYDROmorphone HCL PF 1 MG/ML VIAL IV PUSH PRN (03:59)
[2017-01-05] MEDS: AMPICILLIN-SULBACTAM INJ 1,500 MG in SODIUM CHLORIDE 0.9% INJ 100 ML IV SCH ×4 (03:59→23:03)
[2017-01-05 04:26] LABS: BASOPHIL % 0.5 % (0.0-2.0); HEMATOCRIT 35.3 % (39.0-51.0); HEMO FLAGS DIFF FINAL; LYMPH % 10.8 % (9.0-44.0); MEAN CELL VOLUME 82.5 FL (80.0-100.0); MEAN CORPUSCULAR HEMOGLOBIN 27.7 PG (27.0-34.0); MEAN CORPUSCULAR HGB CONC 33.6 % (32.0-36.0); MONO % 5.1 % (0.0-8.0); NEUT % 83.6 % (16.0-70.0); PLATELET COUNT 201 TH/MM3 (150-450); RED BLOOD COUNT 4.28 MIL/MM3 (4.50-5.90); RED CELL DISTRIBUTION WIDTH 18.8 % (11.6-17.2); WHITE BLOOD COUNT 9.6 TH/MM3 (4.0-11.0)
[2017-01-05 04:40] LABS: APTT (PATIENT) 25.8 SEC (24.3-30.1); PROTHROMBIN TIME - PATIENT 11.2 SEC (9.8-11.6)
[2017-01-05 04:51] LABS: BICARBONATE 28.4 MEQ/L (21.0-32.0); MAGNESIUM 2.6 MG/DL (1.5-2.5)
--- NOTE | 2017-01-05 05:01 | RADRPT ---
EXAM DATE/TIME: 01/05/2017 03:01 [facility] COMPARISON: CT THORAX W/O CONTRAST, January 04, 2017, 12:03. CHEST SINGLE AP, January 04, 2017, 3:19. INDICATIONS : Shortness of breath. MEDICAL HISTORY : Hypertension. Congestive heart failure. Myocardial infarction. Coronary artery disease. SURGICAL HISTORY : Pacemaker. CABG. Coronary artery stent. ENCOUNTER: Subsequent ACUITY: 1 week PAIN SCORE: Non-responsive. LOCATION: Bilateral chest FINDINGS: Portable AP view of the chest demonstrates enlargement of the cardiac silhouette. ETT, NG tube, and r ight subclavian central line remain present. Moderate-sized bibasilar pleural-parenchymal opacities a re stable. No pneumothorax is visualized. Multiple lines overlie the patient. CONCLUSION: Stable chest x-ray with bibasilar pleural-parenchymal opacities representing pleural effusions with a ssociated compressive atelectasis. Camden Brennan MD on January 05, 2017 at 4:59 Board Certified Radiologist. This report was verified electronically.
[2017-01-05] MEDS ORDERED: SODIUM CHLOR 0.9% 1000 ML INJ 1,000 ML IV ONE (06:30)
[2017-01-05] MEDS ORDERED: METHYLNALTREXONE BROMIDE 12 MG/0.6 ML VIAL SQ ONE (06:30)
[2017-01-05] MEDS ORDERED: MINERAL OIL LIQUID 30 ML CUP PO ONE (06:30)
--- NOTE | 2017-01-05 06:34 | HHI.CCPN ---
Subjective Remarks/Hospital Course 71-year-old male presents for evaluation of testicular swelling. Approximately 10 days ago he was started on Aldactone for his blood pressure which. He also noted that her sugars has been slightly elevated. Denies any fevers. He has been feeling generally weak as well. Denied abdominal pain nausea vomiting or diarrhea. He thought the scrotal swelling was from the Aldactone and came into the emergency department to be evaluated. 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 remains intubated overnight. off vasopressors. 12/30: Much more comfortable. Back to OR for washout today. Breathing without distress. STEFFEN improving. Patient has dilated cardiomyopathy with severe systolic heart failure and EF 25-30% by last ECHO 2013. May need low-dose inotrope during course of therapy. 12/30 1800 hrs: Seen after OR today. He has full neck veins and light wheezes with basilar crackles. His underlying LV dysfunction requires that we treat this aggressively with diuretics and subsequent electrolyte replacement. Will move back to [facility]. 12/31: Required rapid response for 2nd time in 12 hours. Will need intubation due to severe systolic heart failure and pulmonary edema. 01/01: Afebrile. Remains nothing by mouth for planned washout today. Decreased urine output noted. Hypertensive with sedation vacation. 01/02: Yesterday with washout and debridement without complication. Continues to be in A. fib intermittently rate controlled. Hemodynamically stable. One bowel movement. Will try spontaneous breathing trials today and attempt to extubate. If unsuccessful will initiate tube feeding. 01/03: Tmax 99.2. Episode of desaturation overnight recording FiO2 100%. Currently back to 50%. Chest x-ray essentially stable. Small left pleural effusion. Low lung volumes. Remains in a flutter rate controlled. Imminently bradycardic. 3 bowel movements on 01/02. Tolerating tube feeding. 01/04: FiO2 currently at 50%. We'll check CT chest. Possible need pleural effusions. Remains in a flutter rate control. Intermittently bradycardic. No bowel movement yesterday. Tube feeds currently off for possible extubation but tolerating previously. Afebrile Subjective: 01/05: Remains on FiO2 of 50%. CT chest revealed small bilateral pleural effusions otherwise unremarkable. Noted is currently rate controlled. No bowel movement. Tube feeds at goal. Afebrile. Intermittently follows commands. Objective Vital Signs Date Time Temp Pulse Resp B/P Pulse Ox O2 Delivery O2 Flow Rate FiO2 01/05/17 04:29 16 01/05/17 04:21 96 50 01/05/17 04:00 98.7 71 141/73 01/04/17 19:00 Mechanical Ventilator Intake and Output 01/04/17 01/04/17 01/05/17 08:00 16:00 00:00 Intake Total 1240 ml 1357 ml 1045 ml Output Total 500.0 ml 400 ml 450 ml Balance 740.0 ml 957 ml 595 ml Result Diagram: 01/05/17 0410 01/05/17 0410 Other Results Microbiology Date/Time Procedure Status Source Growth 01/03/17 12:05 Gram Stain - Final Resulted Bronchial Washings Right Lower Lobe 01/03/17 12:05 Bronchial Culture - Preliminary Resulted Bronchial Washings Right Lower Lobe NO GROWTH IN 24 HOURS. 01/03/17 12:05 Fungal Smear - Final Resulted Bronchial Washings Right Lower Lobe NO FUNGAL ELEMENTS SEEN. 01/03/17 12:05 Fungal Culture Resulted Bronchial Washings Right Lower Lobe Pending 01/03/17 12:05 Acid Fast Stain Received Bronchial Washings Right Lower Lobe Pending 01/03/17 12:05 Mycobacterial Culture Received Bronchial Washings Right Lower Lobe Pending 12/31/16 14:20 Gram Stain Received Sputum Endotracheal Pending 12/31/16 14:20 Sputum Culture Received Sputum Endotracheal Pending Imaging Last Impressions Chest X-Ray 01/05/17 0600 Signed Impressions: Service Date/Time: Thursday, January 05, 2017 03:01 - CONCLUSION: Stable chest x-ray with bibasilar pleural-parenchymal opacities representing pleural effusions with associated compressive atelectasis. Camden Brennan MD Chest CT 01/04/17 0000 Signed Impressions: Service Date/Time: Wednesday, January 04, 2017 12:03 - CONCLUSION: 1. Consolidative changes with small bilateral pleural effusions in both bases. 2. Extensive coronary artery calcifications. Aba Dick MD FACR Renal Ultrasound 01/01/17 0000 Signed Impressions: Service Date/Time: Sunday, January 01, 2017 09:12 - CONCLUSION: Normal examination. Sushil Abdi Jr., MD Scrotum Ultrasound 12/28/16 1246 Signed Impressions: Service Date/Time: Wednesday, December 28, 2016 14:05 - CONCLUSION: 1. Marked thickening of the scrotal wall, up to 2.4 cm on the right. 2. Small complex left hydrocele. 3. Small complex cysts right testicle. Positive testicular blood flow. Nael Scott MD Abdomen/Pelvis CT 12/28/16 1237 Signed Impressions: Service Date/Time: Wednesday, December 28, 2016 14:52 - CONCLUSION: 1. 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 2. Mild bilateral inguinal adenopathy and marked scrotal wall thickening. 3. Fat-containing 5.7 cm umbilical hernia. 4. Atherosclerotic aorta with some displaced intimal calcifications but without significant aneurysm. No bowel obstruction. Mild ileus. aNel Scott MD Objective Remarks GENERAL: 71-year-old male, critically ill currently orotracheally intubated SKIN: Warm and dry. No rash HEAD: Normocephalic. EYES: Pupils are 4 mm bilaterally and reactive. No scleral icterus. No injection or drainage. NECK: trachea midline.Supple. Right subclavian clean dry and intact CARDIOVASCULAR: Bradycardia, IR. S1, S2 no S4. Without murmur RESPIRATORY: Diminished breath sounds due to body habitus. Few crackles appreciated in the bases bilaterally. GASTROINTESTINAL: Abdomen soft, non-tender, obese. Hypoactive bowel sounds appreciated.. Umbilical hernia is reducible MUSCULOSKELETAL: Currently with trace bilateral lower extremity pitting edema. Dorsalis pedis and posterior tibials are palpable bilaterally : Minimal scrotal edema. Packing which is clean and dry in the groin. A pimentel exits the penis meatus intact without blood. [address] NEURO: Cranial nerves II through XII grossly intact. Moves all 4 extremities spontaneously. Withdraws to pain. 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 Currently at 0.5 mcg/kg per minute Goal of RASS -2 Daily sedation vacation Not on home medications for underlying psychiatric diagnosis. CV: Congestive heart failure/systolic ejection fraction 25% 2013 Limited echo EF 35-40% with akinesis apical myocardium History of CABG 4 Hypertension Dyslipidemia History of single-chamber defibrillator 08/19 due to positive EPS study Holding valsartan 320 mg by mouth daily for hypertension due to acute kidney injury Continue Lipitor 40 mg by mouth daily/home medication for dyslipidemia On Coreg 50 mg by mouth twice a day at home for hypertension - decreased to 25 twice a day yesterday with underlying bradycardia Continue hydralazine 25 3 times a day/Isordil 10 every 8 as adjuvant while creatinine elevated Milrinone was discontinued 01/01 due to dysrhythmias Echo 2013 - EF 25-30%. No regional wall motion abnormality. Left atrium dilated Limited echo 2016 reveals EF 35-40%. Akinesis apical myocardium. Left atrium mild dilatated. Mild MR. At home on Lasix 40 mg by mouth twice a day. 60 milligrams IV Lasix held due to worsening renal function Continue spironolactone 12.5 mg daily Given 2 doses of digoxin 0.25 mg IV 1. Recheck digoxin level in a.m. was less than 0.4 Dr. Rob cardiology seen for for underlying atrial flutter. Likely ischemic workup Likely will need full dose anticoagulation soon if okay with urology Resp: Acute hypoxemic respiratory failure Ongoing tobaccoism PRVC 16/60/0.85/5/50 Ventilator bundle Bronchodilator therapy every 4 hours and as needed Spontaneous breathing trials today. Adequate weaning parameters however FiO2 50 % Solu-Medrol 60 IV every 12 hours Follow-up chest x-ray GI: Gastroesophageal reflux disease 5.7 cm umbilical hernia Glucerna 1.5 goal 55 cc an hour Pepcid 10 mg twice a day for GI prophylaxis. On Prilosec 20 mg by mouth daily at home Colace/senna twice a day for bowel regimen and added MiraLAX twice a day lactulose 4 times daily and glycerin suppository Relistor and mineral oil1 today Check KUB Umbilical hernia seen on CT is reducible. : Becca's gangrene BPH Postop day #8 I&D 4 for Becca's gangrene/ necrotizing fasciitis posterior scrotum, perineum and right perirectal tissue Postop day #6 washout and debridement for his gangrene Postoperative day #4 washout and debridement of gangrene with placement of 4 [place] drains 12/28 revealed gas in his perineum/scrotum and the right gluteal cleft. Followed by urology/Dr. Ling Endo: Diabetes mellitus Gout Holding Tanzeum 50 mg subcutaneous weekly. Holding allopurinol 200 mg by mouth daily for gout Sliding scale insulin with Accu-Cheks every 4 hours to maintain euglycemia. 8 units of sliding scale insulin past 24 hours and started on Levemir 5 daily Renal: Acute kidney injury - baseline creatinine 1.[address] revealed no signs of hydronephrosis. Urine eosinophils negative. Renal ultrasound revealed no hydronephrosis Creatinine currently 1.5 and downward trending. No indications for hemodialysis at this point. Heme: Normocytic anemia Daily CBC. Monitor trends Transfuse 2 units PRBCs during this hospital sedation. No current indication for transfusion of blood proximally at this time. ID: Becca's gangrene Group A beta strep UTI Unasyn 1.5 IV every 6 hours Clindamycin 300 mg by mouth every 6 hours completed 01/02 Zyvox day #5 Pertinent cultures Sputum - 12/31 -no growth Abdomen abscess - 12/28 - Escherichia coli, E faecalis and coag negative staph Abdomen abscess - 12/28 - acid-fast bacilli/fungus negative Blood cultures 2 - 12/28 - no growth Urine culture - 12/28 -group A beta strep Infectious disease consulted. FEN: Hyper-magnesium Hypokalemia - resolved Hypernatremia Replace electrolytes as clinically indicated MSK: PT/OT evaluate and treat Access - Right IJ CVL day #6 place 12/31 - Left radial arterial line day #6 place 12/31 Prophylaxis - GI - Pepcid - DVT - SCD/heparin subcutaneous Critical Care: The total critical care time was 35 minutes. Time to perform other separately billable procedures was not included in the critical care time. Yandel Garcias MD Jan 05, 2017 06:33
[2017-01-05] MEDS: INSULIN NovoLIN REGULAR SUPPLEMENTAL SCALE SQ SCH ×6 (06:59→23:01)
[2017-01-05] MEDS: ISOSORBIDE DINITRATE 10 MG TAB PO SCH ×3 (07:00→20:39)
[2017-01-05] MEDS: hydrALAZINE HCL 25 MG TAB PO SCH ×3 (07:00→20:39)
[2017-01-05] MEDS: HEPARIN SODIUM - SQ 10,000 UNITS/ML VIAL SQ SCH ×3 (07:01→20:39)
--- NOTE | 2017-01-05 08:16 | RADRPT ---
EXAM DATE/TIME: 01/05/2017 07:23 [facility] COMPARISON: No previous studies available for comparison. INDICATIONS : Evaluate for ileus. MEDICAL HISTORY : None. SURGICAL HISTORY : None. ENCOUNTER: Initial ACUITY: 1 day PAIN SCORE: Non-responsive. LOCATION: Bilateral abdomen. FINDINGS: Nasogastric tube is across the GE junction. Scattered gas-filled minimally dilated loops of large an d small bowel are noted. Findings are most suggestive of an ileus. Bibasilar parenchymal changes are noted. CONCLUSION: Nasogastric tube across the GE junction with minimal gaseous distention. Aba Dick MD FACR on January 05, 2017 at 7:46 Board Certified Radiologist. This report was verified electronically.
[2017-01-05] MEDS: RESP: BUDESONIDE 0.5 MG/2 ML NEB NEB SCH ×2 (08:23→20:00)
[2017-01-05] MEDS: ALBUMIN HUMAN 25% 25 GM/100 ML BAGP IV SCH ×2 (08:39→16:48)
[2017-01-05] MEDS: LACTULOSE SYRUP 20 GM/30 ML CUP PO SCH ×4 (08:40→20:38)
[2017-01-05] MEDS: LINEZOLID 600 MG PREMIX 300 ML IV SCH ×2 (08:40→20:37)
[2017-01-05] MEDS: PROPOFOL 1000 MG/100 ML INJ 100 ML IV SCH ×5 (08:40→23:06)
[2017-01-05] MEDS: POLYETHYLENE GLYCOL 17 GM PKG PEG SCH ×2 (08:40→20:38)
[2017-01-05] MEDS: methylPREDNISolone SOD SUCC 125 MG/2 ML VIAL IV PUSH SCH ×2 (08:40→20:37)
[2017-01-05] MEDS: SENNOSIDES SYRUP 8.8 MG/5 ML CUP PO SCH ×2 (08:41→20:38)
[2017-01-05] MEDS: DOCUSATE SODIUM 100 MG/10 ML UDC G-TUBE SCH ×2 (08:41→20:38)
[2017-01-05] MEDS: CARVEDILOL 12.5 MG TAB PO SCH ×2 (08:41→20:38)
[2017-01-05] MEDS: SPIRONOLACTONE 25 MG TAB PO SCH (08:41)
[2017-01-05] MEDS: FAMOTIDINE 20 MG TAB PO SCH ×2 (08:41→20:38)
[2017-01-05] MEDS: INSULIN DETEMIR 100 UNITS/ML VIAL SQ SCH (08:41)
[2017-01-05] MEDS: SODIUM CHLORIDE 0.9% FLUSH 10 ML FLUSH SCH ×2 (08:42→20:38)
[2017-01-05] MEDS: ARTIFICIAL TEARS OPTH SOLN 15 ML BTL EACH EYE SCH ×3 (08:42→16:48)
[2017-01-05] MEDS: CHLORHEXIDINE 0.12% (ORAL KIT) 15 ML CUP MT SCH ×2 (08:42→20:37)
[2017-01-05] MEDS: METOCLOPRAMIDE HCL 10 MG/2 ML VIAL IV PUSH SCH ×3 (09:01→20:38)
[2017-01-05] MEDS: LABETALOL HCL 100 MG/20 ML VIAL IV PUSH PRN (11:56)
[2017-01-05] MEDS ORDERED: ETOMIDATE 40 MG/20 ML VIAL IV PUSH ONE (12:45)
[2017-01-05] MEDS ORDERED: ROCURONIUM INJ 100 MG/10 ML VIAL IV ONE (12:45)
[2017-01-05] MEDS ORDERED: ROCURONIUM INJ 50 MG/5 ML VIAL ONE ×2 (12:47→12:48)
[2017-01-05] MEDS ORDERED: NOREPINEPHRINE-DEXTROSE DRIP 250 ML IV ONE (13:01)
--- NOTE | 2017-01-05 13:10 | PD.PROCEDR ---
Procedure Note Procedure DATE: 01/05/17 PROCEDURE: Orotracheal intubation INDICATION: Self extubation/COPD on 100% nonrebreather with very low saturations DETAILS OF PROCEDURE The patient was placed in optimal position and preoxygenated with 88% FiO2 via bag valve mask. At the start oxygen saturation was 88%. The patient was administered 50 micrograms fentanyl IV and 40 milligrams etomidate IV. Due to clenched jaw at this time, he was given 100 mg rocuronium IV. I entered the oropharynx with a size 4 Bertha laryngoscope blade and obtained a grade 1 view of the airway. On single attempt a size 8.0 cuffed endotracheal tube was passed through the vocal cords. Correct tube location was confirmed with end tidal CO2 detector and by auscultating over bilateral lung rubio. The endotracheal tube was secured with adhesive tape at a depth of 24 cm at the lips. The patient was connected to the ventilator. The patient tolerated the procedure well without any apparent complications. Patient did desaturate down to 50% recovered quickly to 100% after intubation. STAT chest x-ray pending at time of dictation. Yandel Garcias MD Jan 05, 2017 13:10
--- NOTE | 2017-01-05 13:51 | RADRPT ---
EXAM DATE/TIME: 01/05/2017 13:28 [facility] COMPARISON: CHEST SINGLE AP, January 05, 2017, 3:01. INDICATIONS : Post intubation. MEDICAL HISTORY : Hypertension. Congestive heart failure. Myocardial infarction. Coronary art kavin disease. SURGICAL HISTORY : Pacemaker. CABG. Coronary artery stent. ENCOUNTER: Subsequent ACUITY: 1 day PAIN SCORE: Non-responsive. LOCATION: Bilateral chest FINDINGS: G-tube, nasogastric tube and central venous catheter are in good position. Pacer is implanted on the left. Heart is enlarged. There is mild interstitial edema present. Bibasilar parenchymal changes are note d with a small amount of effusion. Overall, there has been aeration with less interstitial edema. CONCLUSION: Interval improvement as described above. Aba Dick MD FACR on January 05, 2017 at 13:37 Board Certified Radiologist. This report was verified electronically.
--- NOTE | 2017-01-05 13:55 | HHI.PR ---
Subjective Remarks On mechanical ventilation Objective Vital Signs Date Time Temp Pulse Resp B/P Pulse Ox O2 Delivery O2 Flow Rate FiO2 01/05/17 11:59 91 50 01/05/17 10:00 84 01/05/17 09:00 50 01/05/17 08:32 94 40 01/05/17 08:00 98.5 91 16 144/67 93 01/05/17 08:00 50 01/05/17 08:00 91 01/05/17 07:00 93 Mechanical Ventilator 40 01/05/17 06:00 58 01/05/17 04:29 16 01/05/17 04:21 96 50 01/05/17 04:00 98.7 71 17 141/73 96 01/05/17 04:00 50 01/05/17 04:00 71 01/05/17 02:00 79 01/05/17 00:00 71 01/05/17 00:00 50 01/05/17 00:00 98.6 67 16 158/69 99 01/04/17 23:13 96 50 01/04/17 22:00 75 01/04/17 20:00 50 01/04/17 20:00 54 01/04/17 20:00 98.6 73 16 167/83 96 01/04/17 19:41 97 50 01/04/17 19:00 94 Mechanical Ventilator 50 01/04/17 18:00 89 01/04/17 16:00 98.2 91 22 192/86 95 01/04/17 16:00 50 01/04/17 16:00 91 01/04/17 15:59 95 50 01/04/17 14:00 68 I/O 01/04/17 01/04/17 01/04/17 01/05/17 01/05/17 01/05/17 07:00 15:00 23:00 07:00 15:00 23:00 Intake Total 1240 ml 1357 ml 1045 ml 1227 ml Output Total 500 ml 400 ml 450 ml 450 ml 0 ml Balance 740 ml 957 ml 595 ml 777 ml 0 ml Intake Oral 0 ml 0 ml 0 ml IV Total 1000 ml 1054 ml 675 ml 750 ml Tube Feeding 120 ml 123 ml 250 ml 375 ml Other 120 ml 180 ml 120 ml 102 ml Output Urine Total 500 ml 400 ml 450 ml 450 ml Stool Total 0 ml 0 ml Tube Feeding Residual Discard 0 ml 0 ml # Bowel Movements 0 3 Result Diagram: 01/05/170 01/05/17409 Imaging Intubated, on mechanical ventilation lungs: ventilated Heart: S1, S2 irregular Abdomen: obese , no mass Ext: no edema Last Impressions Chest X-Ray 01/05/17 0600 Signed Impressions: Service Date/Time: Thursday, January 05, 2017 03:01 - CONCLUSION: Stable chest x-ray with bibasilar pleural-parenchymal opacities representing pleural effusions with associated compressive atelectasis. Camden Brennan MD Abdomen X-Ray 01/05/17 0000 Signed Impressions: Service Date/Time: Thursday, January 05, 2017 07:23 - CONCLUSION: Nasogastric tube across the GE junction with minimal gaseous distention. Aba Dick MD FACR Chest CT 01/04/17 0000 Signed Impressions: Service Date/Time: Wednesday, January 04, 2017 12:03 - CONCLUSION: 1. Consolidative changes with small bilateral pleural effusions in both bases. 2. Extensive coronary artery calcifications. Aba Dick MD FACR Renal Ultrasound 01/01/17 0000 Signed Impressions: Service Date/Time: Sunday, January 01, 2017 09:12 - CONCLUSION: Normal examination. Sushil Abdi Jr., MD Scrotum Ultrasound 12/28/16 1246 Signed Impressions: Service Date/Time: Wednesday, December 28, 2016 14:05 - CONCLUSION: 1. Marked thickening of the scrotal wall, up to 2.4 cm on the right. 2. Small complex left hydrocele. 3. Small complex cysts right testicle. Positive testicular blood flow. Nael Scott MD Abdomen/Pelvis CT 12/28/16 1237 Signed Impressions: Service Date/Time: Wednesday, December 28, 2016 14:52 - CONCLUSION: 1. 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 2. Mild bilateral inguinal adenopathy and marked scrotal wall thickening. 3. Fat-containing 5.7 cm umbilical hernia. 4. Atherosclerotic aorta with some displaced intimal calcifications but without significant aneurysm. No bowel obstruction. Mild ileus. Nael Scott MD Current Medications Medications (Trade) Dose Ordered Sig/Abdiel Route Start Time Stop Time Status Last Admin (NS Flush) 2 ml UNSCH PRN .XX 12/28/16 20:15 (NS Flush) 2 ml BID .XX 12/28/16 21:00 01/05/17 08:42 (Tylenol) 650 mg Q6H PRN PO 12/28/16 20:15 12/29/16 13:42 (Tears Naturale Opth Soln) 1 drop TID EACH EYE 12/29/16 09:00 01/05/17 08:42 (Zofran Inj) 4 mg Q6H PRN IV 12/28/16 20:15 (Colace Liq) 100 mg Q12H G-TUBE 12/28/16 21:00 01/05/17 08:41 (Heparin Inj) 5,000 units Q8H SQ 12/28/16 22:00 01/05/17 07:01 Miscellaneous Information 1 Q361D XX 12/28/16 20:15 12/29/16 00:29 (Chlorhexidine 2% Cloth) Taper DAILY@04 TOP 12/29/16 04:00 12/25/17 03:59 01/04/17 04:00 (Chlorhexidine 2% Cloth) 3 pack UNSCH PRN TOP 12/28/16 20:15 (D50w (Vial) Inj) 25 ml UNSCH PRN IV PUSH 12/29/16 07:15 (Roxicodone) 5 mg Q4H PRN PO 12/29/16 15:00 01/04/17 10:41 (Lipitor) 40 mg HS PO 12/30/16 21:00 01/04/17 20:56 (Aldactone) 12.5 mg DAILY PO 12/31/16 09:00 01/05/17 08:41 (Pill Splitter) 1 ea UNSCH PRN OTHER 12/30/16 12:15 (Lasix Inj) 40 mg BID@09,18 IV PUSH 12/31/16 09:00 Hold (Pepcid) 10 mg BID PO 12/31/16 21:00 01/05/17 08:41 Chlorhexidine Gluconate 15 ml 15 ml BID@08,20 MT 12/31/16 20:00 01/05/17 08:42 Propofol 100 ml @ 0 mls/hr TITRATE IV 12/31/16 16:00 4/2/17 10:47 (Zyvox 600 Mg Premix) 300 ml @ 300 mls/hr Q12H IV 01/01/17 08:00 01/05/17 08:40 (NovoLIN R SUPPLEMENTAL SCALE) 1 Q4HR SQ 01/01/17 12:00 01/05/17 08:42 (Trandate Inj) 10 mg Q1HR PRN IV PUSH 01/02/17 08:00 01/05/17 11:56 (Apresoline Inj) 10 mg Q1HR PRN IV PUSH 01/02/17 08:00 01/05/17 10:47 Nitroglycerin 2 inch 2 inch Q6HR PRN TOPICAL 01/02/17 08:00 01/02/17 08:44 (Precedex Inj/NS Inj) 50 ml @ 0 mls/hr TITRATE IV 01/02/17 12:27 01/04/17 08:44 (Dilaudid Pf Inj) 1 mg Q2H PRN IV PUSH 01/02/17 16:00 01/05/17 03:59 (Coreg) 25 mg BID PO 01/03/17 09:00 01/05/17 08:41 (SoluMEDROL INJ) 60 mg BID IV PUSH 01/03/17 09:00 01/05/17 08:40 (Senna Liq) 8.8 mg BID PO 01/03/17 09:00 01/05/17 08:41 (Apresoline) 25 mg Q8HR PO 01/03/17 06:30 01/05/17 07:00 (Isordil) 10 mg Q8HR PO 01/03/17 06:30 01/05/17 07:00 (Miralax) 17 gm BID PEG 01/04/17 10:00 01/05/17 08:40 (Lactulose Liq) 30 ml QID PO 01/04/17 13:00 01/05/17 08:40 Glycerin 2 gm 2 gm BID PRN RECTAL 01/04/17 21:00 (Unasyn Inj/NS Inj) 100 ml @ 200 mls/hr Q6H IV 01/04/17 15:00 01/05/17 08:40 (Levemir Inj) 5 units DAILY SQ 01/05/17 09:00 01/05/17 08:41 (Albumin 25% Inj) 25 gm Q12H IV 01/05/17 06:30 01/05/17 18:31 01/05/17 08:39 (Reglan Inj) 5 mg Q8HR IV PUSH 01/05/17 06:30 01/05/17 09:01 Assessment and Plan Problem List: (1) Atrial flutter Status: Acute Plan: HR control. Continue on current management i will be available on a PRN basis (2) Dyspnea Status: Acute Plan: Extubated himself but had to be reintubated HR control Medical management for now (3) Sepsis Status: Acute Plan: Manage by the managing team Char Rob MD Jan 05, 2017 13:55
[2017-01-05 15:02] LABS: BLOOD GAS CARBOXYHEMOGLOBIN 0.9 % (0-4); BLOOD GAS HCO3 26 mmol/L (22-26); BLOOD GAS METHEMOGLOBIN 0.9 % (0-2); BLOOD GAS O2 HGB SATURATION 84 % (90-100); BLOOD GAS OXYGEN CONTENT 13.1 Vol % (12.0-20.0); BLOOD GAS PCO2 45 mmHg (38-42); BLOOD GAS PO2 55 mmHg (61-120); BLOOD GAS TOTAL HGB 11.1 G/DL (12.0-16.0); TEMP CORR TO 98.6
[2017-01-05 15:03] LABS: CRITICAL VALUE YES; DRAW SITE LT RADIAL; FIO2 90 %; NUMBER OF ARTERIAL PUNCTURES 1; OXYGEN DEVICE VENTILATOR; STAT NO; ULNAR PULSE PRESENT; VENT SETTINGS 16/700/+12/90%
[2017-01-05] MEDS: ATORVASTATIN 40 MG TAB PO SCH (20:39)
[2017-01-06] VITALS (15 sets, daily range): BP systolic 133–175; BP diastolic 61–78; PULSE 46–72; RESP 16; TEMP 98–99.5; O2SAT 95–100
[2017-01-06] MEDS: RESP: ALBUTEROL 2.5 MG/IPRATROPIUM 0.5 MG NEB (SCH) NEB ×6 (00:02→19:51)
[2017-01-06] MEDS: INSULIN NovoLIN REGULAR SUPPLEMENTAL SCALE SQ SCH ×6 (01:08→20:54)
[2017-01-06] MEDS: hydrALAZINE HCL 20 MG/ML VIAL IV PUSH PRN (03:11)
[2017-01-06] MEDS: AMPICILLIN-SULBACTAM INJ 1,500 MG in SODIUM CHLORIDE 0.9% INJ 100 ML IV SCH ×4 (03:11→20:38)
[2017-01-06] MEDS: PROPOFOL 1000 MG/100 ML INJ 100 ML IV SCH ×6 (03:20→22:35)
[2017-01-06] MEDS: CHLORHEXIDINE GLUCONATE 2 % 1 PACK (2 CLOTHS) TOP SCH (04:00)
[2017-01-06 04:37] LABS: BLOOD GAS BASE EXCESS 1.9 mmol/L (-2-2); BLOOD GAS HCO3 26 mmol/L (22-26); BLOOD GAS METHEMOGLOBIN 0.9 % (0-2); BLOOD GAS O2 HGB SATURATION 95 % (90-100); BLOOD GAS OXYGEN CONTENT 14.3 Vol % (12.0-20.0); BLOOD GAS PCO2 38 mmHg (38-42); BLOOD GAS PO2 85 mmHg (61-120); BLOOD GAS TOTAL HGB 10.7 G/DL (12.0-16.0); TEMP CORR TO 98.6
[2017-01-06 04:38] LABS: CRITICAL VALUE NO; DRAW SITE RT BRACHIAL; FIO2 40 %; NUMBER OF ARTERIAL PUNCTURES 1; OXYGEN DEVICE VENTILATOR; STAT NO; ULNAR PULSE PRESENT; VENT SETTINGS PRVC/AC
[2017-01-06 04:46] LABS: AUTOMATED NEUTROPHIL # 9.7 TH/MM3 (1.8-7.7); BASOPHIL % 0.3 % (0.0-2.0); EOSINOPHIL % 0.1 % (0.0-4.0); HEMATOCRIT 32.5 % (39.0-51.0); HEMO FLAGS DIFF FINAL; LYMPH % 9.7 % (9.0-44.0); LYMPHOCYTE # 1.1 TH/MM3 (1.0-4.8); MEAN CELL VOLUME 82.9 FL (80.0-100.0); MEAN CORPUSCULAR HEMOGLOBIN 27.3 PG (27.0-34.0); MEAN CORPUSCULAR HGB CONC 32.9 % (32.0-36.0); MONO % 3.1 % (0.0-8.0); NEUT % 86.8 % (16.0-70.0); PLATELET COUNT 167 TH/MM3 (150-450); RED BLOOD COUNT 3.92 MIL/MM3 (4.50-5.90); WHITE BLOOD COUNT 11.1 TH/MM3 (4.0-11.0)
[2017-01-06 05:16] LABS: ANION GAP 6 MEQ/L (5-15); AST (GOT) 23 U/L (15-37); BICARBONATE 29.3 MEQ/L (21.0-32.0); BLOOD UREA NITROGEN 48 MG/DL (7-18); CHLORIDE 114 MEQ/L (98-107); GLOMERULAR FILTRATION RATE 49 ML/MIN (>89); MAGNESIUM 2.7 MG/DL (1.5-2.5); POTASSIUM 4.1 MEQ/L (3.5-5.1); SODIUM (NA) 149 MEQ/L (136-145)
[2017-01-06 05:18] LABS: ALKALINE PHOSPHATASE 87 U/L (45-117); ALT (GPT) 32 U/L (12-78); TOTAL BILIRUBIN ADULT 0.3 MG/DL (0.2-1.0)
[2017-01-06] MEDS: ISOSORBIDE DINITRATE 10 MG TAB PO SCH ×3 (05:23→20:39)
[2017-01-06] MEDS: METOCLOPRAMIDE HCL 10 MG/2 ML VIAL IV PUSH SCH ×3 (05:23→22:06)
[2017-01-06] MEDS: HEPARIN SODIUM - SQ 10,000 UNITS/ML VIAL SQ SCH ×3 (05:23→22:07)
[2017-01-06] MEDS: hydrALAZINE HCL 25 MG TAB PO SCH ×3 (05:23→20:40)
--- NOTE | 2017-01-06 06:11 | RADRPT ---
EXAM DATE/TIME: 01/06/2017 04:21 [facility] COMPARISON: CHEST SINGLE AP, January 05, 2017, 13:28. INDICATIONS : Shortness of breath, possible pulmonary disease. MEDICAL HISTORY : Hypertension. Congestive heart failure. Myocardial infarction. CAD SURGICAL HISTORY : Pacemaker. CABG. Coronary artery stent. ENCOUNTER: Subsequent ACUITY: 1 week PAIN SCORE: Non-responsive. LOCATION: Bilateral chest FINDINGS: A single portable frontal view the chest shows significant cardiomegaly. Bibasilar infiltrates and sm all bilateral pleural effusions. Appearance is stable. Endotracheal tube tip proximally 5 cm proximal to the owen. Right subclavian central line and nasogastric tube. Left-sided pacing device and medi an sternotomy wires. CONCLUSION: Cardiomegaly with bilateral pleural effusions and bibasilar infiltrates. The radiographic pattern is most consistent with pulmonary edema. Sushil Abdi Jr., MD on January 06, 2017 at 6:09 Board Certified Radiologist. This report was verified electronically.
[2017-01-06] MEDS: HYDROmorphone HCL PF 1 MG/ML VIAL IV PUSH PRN ×3 (07:17→22:08)
[2017-01-06] MEDS: RESP: BUDESONIDE 0.5 MG/2 ML NEB NEB SCH ×2 (07:50→19:51)
--- NOTE | 2017-01-06 08:19 | HHI.PR ---
Subjective Patient symptoms today Pt seen and examined. On vent; unable to extubate over weekend. Objective Vital Signs Vital Signs Date Time Temp Pulse Resp B/P Pulse Ox O2 Delivery O2 Flow Rate FiO2 01/06/17 07:52 16 01/06/17 07:51 98 40 01/06/17 07:51 98 Ventilator 40 01/06/17 06:00 72 01/06/17 04:27 95 40 01/06/17 04:00 40 01/06/17 04:00 72 01/06/17 04:00 98.7 72 16 175/78 95 01/06/17 02:00 66 01/06/17 00:02 97 40 01/06/17 00:00 98.7 64 16 162/68 97 01/06/17 00:00 64 01/06/17 00:00 60 01/05/17 22:00 52 01/05/17 20:00 98.6 66 16 174/80 98 01/05/17 20:00 60 01/05/17 20:00 66 01/05/17 19:58 99 50 01/05/17 19:00 99 Mechanical Ventilator 60 01/05/17 18:00 64 01/05/17 16:00 67 01/05/17 16:00 98.2 67 16 109/58 99 01/05/17 16:00 90 01/05/17 15:59 99 90 01/05/17 14:30 100 01/05/17 14:00 81 01/05/17 13:00 100 01/05/17 13:00 92 100 01/05/17 12:00 50 01/05/17 12:00 88 01/05/17 12:00 98.2 101 23 181/77 94 01/05/17 11:59 91 50 01/05/17 10:00 84 01/05/17 09:00 50 01/05/17 08:32 94 40 Intake & Output 01/06/17 01/06/17 07:00 19:00 Intake Total 2156 ml Output Total 775 ml Balance 1381 ml IV Total 1177 ml Tube Feeding 739 ml Other 240 ml Output Urine Total 775 ml Tube Feeding Residual Discard 0 ml # Bowel Movements 6 Result Diagram: 01/06/17 0430 01/06/17 0430 Imaging Last 24 hours Impressions Chest X-Ray 01/06/17 0600 Signed Impressions: Service Date/Time: Friday, January 06, 2017 04:21 - CONCLUSION: Cardiomegaly with bilateral pleural effusions and bibasilar infiltrates. The radiographic pattern is most consistent with pulmonary edema. Sushil Abdi Jr., MD Objective Remarks Abd:soft,nt,nd Capps: urine clear Wound: moderate drainage noted. Scrotal erythema improved. 12/30 Abd:soft,nt,nd Capps with clear urine Scrotal erythema improved. 12/31 Abd:soft,nt,nd Capps with clear urine Dressings in place. Ext: neg C/C/E 01/02 Abd:soft,nt,nd Wound: clean with kay drains in place. 01/03 Abd:soft,nt,nd Wound looks clean. Small kay drain removed. 01/06 Abd:soft,nt,nd Drains out Medications and IVs Current Medications Medications (Trade) Dose Ordered Sig/Abdiel Route Start Time Stop Time Status Last Admin (NS Flush) 2 ml UNSCH PRN .XX 12/28/16 20:15 (NS Flush) 2 ml BID .XX 12/28/16 21:00 01/05/17 20:38 (Tylenol) 650 mg Q6H PRN PO 12/28/16 20:15 12/29/16 13:42 (Tears Naturale Opth Soln) 1 drop TID EACH EYE 12/29/16 09:00 01/05/17 16:48 (Zofran Inj) 4 mg Q6H PRN IV 12/28/16 20:15 (Colace Liq) 100 mg Q12H G-TUBE 12/28/16 21:00 01/05/17 08:41 (Heparin Inj) 5,000 units Q8H SQ 12/28/16 22:00 01/06/17 05:23 Miscellaneous Information 1 Q361D XX 12/28/16 20:15 12/29/16 00:29 (Chlorhexidine 2% Cloth) Taper DAILY@04 TOP 12/29/16 04:00 12/25/17 03:59 01/04/17 04:00 (Chlorhexidine 2% Cloth) 3 pack UNSCH PRN TOP 12/28/16 20:15 (D50w (Vial) Inj) 25 ml UNSCH PRN IV PUSH 12/29/16 07:15 (Roxicodone) 5 mg Q4H PRN PO 12/29/16 15:00 01/04/17 10:41 (Lipitor) 40 mg HS PO 12/30/16 21:00 01/05/17 20:39 (Aldactone) 12.5 mg DAILY PO 12/31/16 09:00 01/05/17 08:41 (Pill Splitter) 1 ea UNSCH PRN OTHER 12/30/16 12:15 (Lasix Inj) 40 mg BID@09,18 IV PUSH 12/31/16 09:00 Hold (Pepcid) 10 mg BID PO 12/31/16 21:00 01/05/17 20:38 Chlorhexidine Gluconate 15 ml 15 ml BID@08,20 MT 12/31/16 20:00 01/05/17 20:37 Propofol 100 ml @ 0 mls/hr TITRATE IV 12/31/16 16:00 01/06/17 07:17 (Zyvox 600 Mg Premix) 300 ml @ 300 mls/hr Q12H IV 01/01/17 08:00 01/05/17 20:37 (NovoLIN R SUPPLEMENTAL SCALE) 1 Q4HR SQ 01/01/17 12:00 01/06/17 05:24 (Trandate Inj) 10 mg Q1HR PRN IV PUSH 01/02/17 08:00 01/05/17 11:56 (Apresoline Inj) 10 mg Q1HR PRN IV PUSH 01/02/17 08:00 01/06/17 03:11 Nitroglycerin 2 inch 2 inch Q6HR PRN TOPICAL 01/02/17 08:00 01/02/17 08:44 (Precedex Inj/NS Inj) 50 ml @ 0 mls/hr TITRATE IV 01/02/17 12:27 01/04/17 08:44 (Dilaudid Pf Inj) 1 mg Q2H PRN IV PUSH 01/02/17 16:00 01/06/17 07:17 (Coreg) 25 mg BID PO 01/03/17 09:00 01/05/17 20:38 (SoluMEDROL INJ) 60 mg BID IV PUSH 01/03/17 09:00 01/05/17 20:37 (Senna Liq) 8.8 mg BID PO 01/03/17 09:00 01/05/17 08:41 (Apresoline) 25 mg Q8HR PO 01/03/17 06:30 01/06/17 05:23 (Isordil) 10 mg Q8HR PO 01/03/17 06:30 01/06/17 05:23 (Miralax) 17 gm BID PEG 01/04/17 10:00 01/05/17 08:40 (Lactulose Liq) 30 ml QID PO 01/04/17 13:00 01/05/17 16:48 Glycerin 2 gm 2 gm BID PRN RECTAL 01/04/17 21:00 (Unasyn Inj/NS Inj) 100 ml @ 200 mls/hr Q6H IV 01/04/17 15:00 01/06/17 03:11 (Levemir Inj) 5 units DAILY SQ 01/05/17 09:00 01/05/17 08:41 (Reglan Inj) 5 mg Q8HR IV PUSH 01/05/17 06:30 01/05/17 14:16 Assessment and Plan Assessment and Plan 71-year-old male with perineal/rectal abscess; 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 Patient will require IR intervention for debridement with washout. Risk and benefits discussed and patient is willing to proceed. 12/29 71 y.o male s/p debridement and washout of necrotizing fascitis Will plan to return to OR tomorrow for washout NPO after MN 12/30 71 y.o. male s/p debridement with washout of necrotizing fascitis OR today for washout. NPO 12/31 71 y.o. male s/p debridement with washout of necrotizing fascitis For washout with closure tomorrow in OR. NPO 01/02 Stable s/p debridement and washout of necrotizing fascitis Extubate today per SICU attending Will remove kay in a few days. 01/03 Stable s/p debridement and washout of necrotizing fascitis For Bronchoscopy today. Hopeful extubation soon. Will remove kay drains over weekend. 01/06 Stable s/p debridement and washout of necrotizing fascitis with closure Extubate/Trach Void trial when OOB and ambulating Tim Ling DO Jan 06, 2017 08:19
--- NOTE | 2017-01-06 08:47 | HHI.CCPN ---
Subjective Remarks/Hospital Course 71-year-old male presents for evaluation of testicular swelling. Approximately 10 days ago he was started on Aldactone for his blood pressure which. He also noted that her sugars has been slightly elevated. Denies any fevers. He has been feeling generally weak as well. Denied abdominal pain nausea vomiting or diarrhea. He thought the scrotal swelling was from the Aldactone and came into the emergency department to be evaluated. 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 remains intubated overnight. off vasopressors. 12/30: Much more comfortable. Back to OR for washout today. Breathing without distress. STEFFEN improving. Patient has dilated cardiomyopathy with severe systolic heart failure and EF 25-30% by last ECHO 2013. May need low-dose inotrope during course of therapy. 12/30 1800 hrs: Seen after OR today. He has full neck veins and light wheezes with basilar crackles. His underlying LV dysfunction requires that we treat this aggressively with diuretics and subsequent electrolyte replacement. Will move back to [facility]. 12/31: Required rapid response for 2nd time in 12 hours. Will need intubation due to severe systolic heart failure and pulmonary edema. 01/01: Afebrile. Remains nothing by mouth for planned washout today. Decreased urine output noted. Hypertensive with sedation vacation. 01/02: Yesterday with washout and debridement without complication. Continues to be in A. fib intermittently rate controlled. Hemodynamically stable. One bowel movement. Will try spontaneous breathing trials today and attempt to extubate. If unsuccessful will initiate tube feeding. 01/03: Tmax 99.2. Episode of desaturation overnight recording FiO2 100%. Currently back to 50%. Chest x-ray essentially stable. Small left pleural effusion. Low lung volumes. Remains in a flutter rate controlled. Imminently bradycardic. 3 bowel movements on 01/02. Tolerating tube feeding. 01/04: FiO2 currently at 50%. We'll check CT chest. Possible need pleural effusions. Remains in a flutter rate control. Intermittently bradycardic. No bowel movement yesterday. Tube feeds currently off for possible extubation but tolerating previously. Afebrile 01/05: Remains on FiO2 of 50%. CT chest revealed small bilateral pleural effusions otherwise unremarkable. Noted is currently rate controlled. No bowel movement. Tube feeds at goal. Afebrile. Intermittently follows commands. Subjective: 01/06: FiO2 40%. Self extubated yesterday. Lasted about 20 Mr. for requiring intubation. Was on 100 percent nonrebreather. Saturations are 90%. During intubation, Ambu bag malfunctioned. Patient was quickly intubated and was arousable moving all 4 extremities prior to re-sedation. We'll attempt sedation vacation again today. Objective Vital Signs Date Time Temp Pulse Resp B/P Pulse Ox O2 Delivery O2 Flow Rate FiO2 01/06/17 07:52 16 01/06/17 07:51 98 40 01/06/17 07:51 Ventilator 01/06/17 06:00 72 01/06/17 04:00 98.7 175/78 Intake and Output 01/05/17 01/05/17 01/06/17 08:00 16:00 00:00 Intake Total 1227 ml 2192 ml 1160 ml Output Total 450.0 ml 525 ml 350 ml Balance 777.0 ml 1667 ml 810 ml Result Diagram: 01/06/17 0430 01/06/17 0430 Other Results Microbiology Date/Time Procedure Status Source Growth 01/03/17 12:05 Gram Stain - Final Complete Bronchial Washings Right Lower Lobe 01/03/17 12:05 Bronchial Culture - Final Complete Bronchial Washings Right Lower Lobe NO GROWTH IN 48 HOURS. 01/03/17 12:05 Fungal Smear - Final Resulted Bronchial Washings Right Lower Lobe NO FUNGAL ELEMENTS SEEN. 01/03/17 12:05 Fungal Culture Resulted Bronchial Washings Right Lower Lobe Pending 01/03/17 12:05 Acid Fast Stain - Final Resulted Bronchial Washings Right Lower Lobe NO ACID FAST BACILLI SEEN 01/03/17 12:05 Mycobacterial Culture Resulted Bronchial Washings Right Lower Lobe Pending Imaging Last Impressions Chest X-Ray 01/06/17 0600 Signed Impressions: Service Date/Time: Friday, January 06, 2017 04:21 - CONCLUSION: Cardiomegaly with bilateral pleural effusions and bibasilar infiltrates. The radiographic pattern is most consistent with pulmonary edema. Sushil Abdi Jr., MD Abdomen X-Ray 01/05/17 0000 Signed Impressions: Service Date/Time: Thursday, January 05, 2017 07:23 - CONCLUSION: Nasogastric tube across the GE junction with minimal gaseous distention. Aba Dick MD FACR Chest CT 01/04/17 0000 Signed Impressions: Service Date/Time: Wednesday, January 04, 2017 12:03 - CONCLUSION: 1. Consolidative changes with small bilateral pleural effusions in both bases. 2. Extensive coronary artery calcifications. Aba Dick MD FACR Renal Ultrasound 01/01/17 0000 Signed Impressions: Service Date/Time: Sunday, January 01, 2017 09:12 - CONCLUSION: Normal examination. Sushil Abdi Jr., MD Scrotum Ultrasound 12/28/16 1246 Signed Impressions: Service Date/Time: Wednesday, December 28, 2016 14:05 - CONCLUSION: 1. Marked thickening of the scrotal wall, up to 2.4 cm on the right. 2. Small complex left hydrocele. 3. Small complex cysts right testicle. Positive testicular blood flow. Nael Scott MD Abdomen/Pelvis CT 12/28/16 1237 Signed Impressions: Service Date/Time: Wednesday, December 28, 2016 14:52 - CONCLUSION: 1. 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 2. Mild bilateral inguinal adenopathy and marked scrotal wall thickening. 3. Fat-containing 5.7 cm umbilical hernia. 4. Atherosclerotic aorta with some displaced intimal calcifications but without significant aneurysm. No bowel obstruction. Mild ileus. Nael Scott MD Objective Remarks GENERAL: 71-year-old male, critically ill currently orotracheally intubated SKIN: Warm and dry. No rash HEAD: Normocephalic. EYES: Pupils are 4 mm bilaterally and reactive. No scleral icterus. No injection or drainage. NECK: trachea midline.Supple. Right subclavian clean dry and intact CARDIOVASCULAR: Bradycardia, IR. Intermittently paced. S1, S2 no S4. Without murmur RESPIRATORY: Diminished breath sounds due to body habitus. Few crackles appreciated in the bases bilaterally. GASTROINTESTINAL: Abdomen soft, non-tender, obese. Hypoactive bowel sounds appreciated.. Umbilical hernia is reducible MUSCULOSKELETAL: Currently with trace to 1+ bilateral lower extremity pitting edema. Dorsalis pedis and posterior tibials are palpable bilaterally : Minimal scrotal edema. Packing which is clean and dry in the groin. A pimentel exits the penis meatus intact without blood. 4 Ashton drains were removed today NEURO: Cranial nerves II through XII grossly intact. Moves all 4 extremities spontaneously. Withdraws to pain. 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 CV: Congestive heart failure/systolic ejection fraction 25% 2013 Limited echo EF 35-40% with akinesis apical myocardium History of CABG 4 Hypertension Dyslipidemia History of single-chamber defibrillator 08/19 due to positive EPS study Holding valsartan 320 mg by mouth daily for hypertension due to acute kidney injury Continue Lipitor 40 mg by mouth daily/home medication for dyslipidemia On Coreg 50 mg by mouth twice a day at home for hypertension - decreased to 25 twice a day yesterday with underlying bradycardia Continue hydralazine 25 3 times a day/Isordil 10 every 8 as adjuvant while creatinine elevated Milrinone was discontinued 01/01 due to dysrhythmias Echo 2013 - EF 25-30%. No regional wall motion abnormality. Left atrium dilated Limited echo 2016 reveals EF 35-40%. Akinesis apical myocardium. Left atrium mild dilatated. Mild MR. At home on Lasix 40 mg by mouth twice a day. 60 milligrams IV Lasix held due to worsening renal function Started Bumex 1 twice a day today attempt to diurese. Continue spironolactone 12.5 mg daily Given 2 doses of digoxin 0.25 mg IV 1. Recheck digoxin level in a.m. was less than 0.4 Dr. Rob cardiology seen for for underlying atrial flutter. Likely ischemic workup Likely will need full dose anticoagulation soon if okay with urology Resp: Acute hypoxemic respiratory failure Ongoing tobaccoism PRVC 16/60/0.85/5/50 Ventilator bundle Bronchodilator therapy every 4 hours and as needed Spontaneous breathing trials today. Adequate weaning parameters however FiO2 50 % Solu-Medrol 60 IV every 12 hours Follow-up chest x-ray GI: Gastroesophageal reflux disease 5.7 cm umbilical hernia Glucerna 1.5 goal 55 cc an hour Pepcid 10 mg twice a day for GI prophylaxis. On Prilosec 20 mg by mouth daily at home Colace/senna twice a day for bowel regimen Umbilical hernia seen on CT is reducible. : Becca's gangrene BPH Postop day #3 I&D 4 for Becca's gangrene/ necrotizing fasciitis posterior scrotum, perineum and right perirectal tissue Postop day #7 washout and debridement for his gangrene Postoperative day #5 washout and debridement of gangrene with placement of 4 Ashton drains 12/28 revealed gas in his perineum/scrotum and the right gluteal cleft. Followed by urology/Dr. Ling Endo: Diabetes mellitus Gout Holding Tanzeum 50 mg subcutaneous weekly. Holding allopurinol 200 mg by mouth daily for gout Sliding scale insulin with Accu-Cheks every 4 hours to maintain euglycemia. 8 units of sliding scale insulin past 24 hours and started on Levemir 5 daily Renal: Acute kidney injury - baseline creatinine 1.[address] revealed no signs of hydronephrosis. Urine eosinophils negative. Renal ultrasound revealed no hydronephrosis Creatinine currently 1.5 and downward trending. No indications for hemodialysis at this point. Heme: Normocytic anemia Leukocytosis Daily CBC. Monitor trends Transfuse 2 units PRBCs during this hospital sedation. No current indication for transfusion of blood proximally at this time. ID: Becca's gangrene Group A beta strep UTI Unasyn 1.5 IV every 6 hours Clindamycin 300 mg by mouth every 6 hours completed 01/02 Zyvox day #6 Pertinent cultures Sputum - 12/31 -no growth Abdomen abscess - 12/28 - Escherichia coli, E faecalis and coag negative staph Abdomen abscess - 12/28 - acid-fast bacilli/fungus negative Blood cultures 2 - 12/28 - no growth Urine culture - 12/28 -group A beta strep Infectious disease consulted. FEN: Hyper-magnesium Hypokalemia - resolved Hypernatremia Replace electrolytes as clinically indicated Added free water 200 every 6 MSK: PT/OT evaluate and treat Access - Right IJ CVL day #7 placed 12/31 - Left radial arterial line day #7 placed 12/31 Prophylaxis - GI - Pepcid - DVT - SCD/heparin subcutaneous Critical Care: The total critical care time was 35 minutes. Time to perform other separately billable procedures was not included in the critical care time. Yandel Garcias MD Jan 06, 2017 08:47
[2017-01-06] MEDS: SODIUM CHLORIDE 0.9% FLUSH 10 ML FLUSH SCH ×2 (09:00→20:38)
[2017-01-06] MEDS: SENNOSIDES SYRUP 8.8 MG/5 ML CUP PO SCH ×2 (09:00→20:39)
[2017-01-06] MEDS: CARVEDILOL 12.5 MG TAB PO SCH ×2 (09:00→20:39)
[2017-01-06] MEDS: DOCUSATE SODIUM 100 MG/10 ML UDC G-TUBE SCH ×2 (09:00→20:39)
[2017-01-06] MEDS: LINEZOLID 600 MG PREMIX 300 ML IV SCH (09:40)
[2017-01-06] MEDS: CHLORHEXIDINE 0.12% (ORAL KIT) 15 ML CUP MT SCH ×2 (09:40→20:38)
[2017-01-06] MEDS: BUMETANIDE INJ 1 MG/4 ML VIAL IV PUSH SCH ×2 (09:43→18:04)
[2017-01-06] MEDS: methylPREDNISolone SOD SUCC 125 MG/2 ML VIAL IV PUSH SCH ×2 (09:45→20:38)
[2017-01-06] MEDS: FAMOTIDINE 20 MG TAB PO SCH ×2 (09:49→20:39)
[2017-01-06] MEDS: SPIRONOLACTONE 25 MG TAB PO SCH (09:49)
[2017-01-06] MEDS: INSULIN DETEMIR 100 UNITS/ML VIAL SQ SCH (09:50)
[2017-01-06] MEDS: ARTIFICIAL TEARS OPTH SOLN 15 ML BTL EACH EYE SCH ×3 (09:56→18:09)
[2017-01-06] MEDS: FREE WATER G-TUBE SCH ×2 (12:00→18:00)
--- NOTE | 2017-01-06 12:30 | HHI.IDPN ---
Subjective Subjective Remarks Chart reviewed is a 71-year CM with PMHx of Diabetes who is on Tanzeum (GLP 1 agonist effects last upto once a week: its a subq injection). Patient reports he has been on this medication as despite good diet and compliance with meds his A1C was 7.7. He also reports history of pacemaker and defibrillator placement in 2016. He presents to the hospital due to testicular swelling. Patient reports swelling, discomfort and pain in the testicular area. He could not see it and does not know if he had a skin lesion prior to this episode at that site. He does report prior infections in the groin region. He also noted that her sugars has been slightly elevated. Denies any fevers. He has been feeling generally weak as well. ID consulted for sepsis, manisha's gangrene. D/w RN Remains on vent. Self extubated and reintubated today. Opens eyes and moves extremities on sedation vacation. Not much secretions. Bronch with mucus plugs. No fever No rash No diarrhea Antibiotics Unasyn IV Zyvox IV Lines Line sites with no e.o infection Past Medical History reviewed. Allergies: Coded Allergies: No Known Allergies (Verified , 12/28/16) Objective . Vital Signs Date Time Temp Pulse Resp B/P Pulse Ox O2 Delivery O2 Flow Rate FiO2 01/06/17 12:02 99 40 01/06/17 07:52 16 01/06/17 07:51 98 40 01/06/17 07:51 98 Ventilator 40 01/06/17 07:00 99 Mechanical Ventilator 40 01/06/17 06:00 72 01/06/17 04:27 95 40 01/06/17 04:00 40 01/06/17 04:00 72 01/06/17 04:00 98.7 72 16 175/78 95 01/06/17 02:00 66 01/06/17 00:02 97 40 01/06/17 00:00 98.7 64 16 162/68 97 01/06/17 00:00 64 01/06/17 00:00 60 01/05/17 22:00 52 01/05/17 20:00 98.6 66 16 174/80 98 01/05/17 20:00 60 01/05/17 20:00 66 01/05/17 19:58 99 50 01/05/17 19:00 99 Mechanical Ventilator 60 01/05/17 18:00 64 01/05/17 16:00 67 01/05/17 16:00 98.2 67 16 109/58 99 01/05/17 16:00 90 01/05/17 15:59 99 90 01/05/17 14:30 100 01/05/17 14:00 81 01/05/17 13:00 100 01/05/17 13:00 92 100 01/05/17 01/05/17 01/06/17 15:00 23:00 07:00 Intake Total 2192 ml 1160 ml 996 ml Output Total 525 ml 350 ml 425 ml Balance 1667 ml 810 ml 571 ml IV Total 1572 ml 698 ml 479 ml Tube Feeding 420 ml 342 ml 397 ml Other 200 ml 120 ml 120 ml Output Urine Total 525 ml 350 ml 425 ml Tube Feeding Residual Discard 0 ml 0 ml # Bowel Movements 2 2 4 . Laboratory Tests Test 01/05/17 01/06/17 04:10 04:30 White Blood Count 9.6 TH/MM3 11.1 TH/MM3 Red Blood Count 4.28 MIL/MM3 3.92 MIL/MM3 Hemoglobin 11.9 GM/DL 10.7 GM/DL Hematocrit 35.3 % 32.5 % Mean Corpuscular Volume 82.5 FL 82.9 FL Mean Corpuscular Hemoglobin 27.7 PG 27.3 PG Mean Corpuscular Hemoglobin 33.6 % 32.9 % Concent Red Cell Distribution Width 18.8 % 19.0 % Platelet Count 201 TH/MM3 167 TH/MM3 Mean Platelet Volume 8.5 FL 8.5 FL Neutrophils (%) (Auto) 83.6 % 86.8 % Lymphocytes (%) (Auto) 10.8 % 9.7 % Monocytes (%) (Auto) 5.1 % 3.1 % Eosinophils (%) (Auto) 0.0 % 0.1 % Basophils (%) (Auto) 0.5 % 0.3 % Neutrophils # (Auto) 8.0 TH/MM3 9.7 TH/MM3 Lymphocytes # (Auto) 1.0 TH/MM3 1.1 TH/MM3 Monocytes # (Auto) 0.5 TH/MM3 0.4 TH/MM3 Eosinophils # (Auto) 0.0 TH/MM3 0.0 TH/MM3 Basophils # (Auto) 0.0 TH/MM3 0.0 TH/MM3 CBC Comment DIFF FINAL DIFF FINAL Differential Comment Laboratory Tests Test 01/05/17 01/06/17 01/06/17 04:10 04:10 04:30 Sodium Level 146 MEQ/L 149 MEQ/L Potassium Level 4.0 MEQ/L 4.1 MEQ/L Chloride Level 111 MEQ/L 114 MEQ/L Carbon Dioxide Level 28.4 MEQ/L 29.3 MEQ/L Anion Gap 7 MEQ/L 6 MEQ/L Blood Urea Nitrogen 53 MG/DL 48 MG/DL Creatinine 1.48 MG/DL 1.42 MG/DL Estimat Glomerular Filtration 47 ML/MIN 49 ML/MIN Rate Random Glucose 202 MG/DL 195 MG/DL Calcium Level 7.9 MG/DL 8.0 MG/DL Phosphorus Level 3.0 MG/DL 3.0 MG/DL Magnesium Level 2.6 MG/DL 2.7 MG/DL Ammonia 31 MCMOL/L Total Bilirubin 0.3 MG/DL Aspartate Amino Transf 23 U/L (AST/SGOT) Alanine Aminotransferase 32 U/L (ALT/SGPT) Alkaline Phosphatase 87 U/L Total Protein 5.2 GM/DL Albumin 2.5 GM/DL Imaging Last Impressions Chest X-Ray 01/03/17 0600 Signed Impressions: Service Date/Time: Tuesday, January 03, 2017 05:38 - CONCLUSION: 1. Mild bibasilar opacity representing either atelectasis, consolidation, or pleural effusion. 2. Stable enlargement of the cardiac silhouette. Camden Brennan MD Renal Ultrasound 01/01/17 0000 Signed Impressions: Service Date/Time: Sunday, January 01, 2017 09:12 - CONCLUSION: Normal examination. Sushil Abdi Jr., MD Scrotum Ultrasound 12/28/16 1246 Signed Impressions: Service Date/Time: Wednesday, December 28, 2016 14:05 - CONCLUSION: 1. Marked thickening of the scrotal wall, up to 2.4 cm on the right. 2. Small complex left hydrocele. 3. Small complex cysts right testicle. Positive testicular blood flow. Nael Scott MD Abdomen/Pelvis CT 12/28/16 1237 Signed Impressions: Service Date/Time: Wednesday, December 28, 2016 14:52 - CONCLUSION: 1. 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 2. Mild bilateral inguinal adenopathy and marked scrotal wall thickening. 3. Fat-containing 5.7 cm umbilical hernia. 4. Atherosclerotic aorta with some displaced intimal calcifications but without significant aneurysm. No bowel obstruction. Mild ileus. Nael Scott MD Physical Exam GENERAL: Obese, CM patient, in no apparent distress. SKIN: No rashes. HEAD: Atraumatic. Normocephalic. No temporal or scalp tenderness. EYES: Pupils equal round and reactive. Extraocular motions intact. No scleral icterus. No injection or drainage. ENT: Intubated NECK: Trachea midline. Supple, nontender, no meningeal signs. CARDIOVASCULAR: Regular rate and rhythm without murmurs, gallops, or rubs. RESPIRATORY: Clear to auscultation. Breath sounds equal bilaterally. GASTROINTESTINAL: Abdomen soft, non-tender, nondistended. Umbilical hernia noted. MUSCULOSKELETAL: Extremities without clubbing, cyanosis, or edema. Scrotal area with erythema noted. Packing noted. NEUROLOGICAL: Sedated Psych: could not be assessed. IV line sites with no e.o infection. 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 E.faecalis, E.coli and Coag neg staph infection. Pulm edema: on vent Acute resp failure on Vent Grp D Enterococcus vs Strep in wound. Gram negative infection in groin. Grp A Strep in urine: 5 day course. Yeast in bronch likely dl does not need treatment normal oral-resp andrei. Diabetes Mellitus uncontrolled. H/o recurrent groin area infections. Acute renal failure: prerenal, sepsis. CAD, CABG, s/p defibrillator and pacemaker. Ef 20% on ECHO this admit per tech. Recs: Continue Unasyn IV plan on IV 4 weeks. If continues to improve at some point may convert to oral depending on clinical condition on follow up. cont Zyvox IV (ASP: Coag neg stap in intra op cultures, Acute renal failure) Plan on 14 days from last culture for Coag neg staph in intraop cultures. Follow cultures Follow clinically. d/w Joan Szymanski MD Jan 06, 2017 12:30
[2017-01-06] MEDS ORDERED: HEPARIN-D5W INJ 250 ML IV SCH (17:15)
[2017-01-06 18:31] LABS: HEMATOCRIT 32.2 % (39.0-51.0); MEAN CELL VOLUME 83.3 FL (80.0-100.0); MEAN CORPUSCULAR HGB CONC 32.4 % (32.0-36.0); PLATELET COUNT 148 TH/MM3 (150-450); RED BLOOD COUNT 3.87 MIL/MM3 (4.50-5.90); RED CELL DISTRIBUTION WIDTH 18.5 % (11.6-17.2); REVIEW FLAG FINAL; WHITE BLOOD COUNT 10.7 TH/MM3 (4.0-11.0)
[2017-01-06 18:40] LABS: PROTHROMBIN TIME - PATIENT 10.9 SEC (9.8-11.6)
[2017-01-06] MEDS: LINEZOLID 600 MG TAB PO SCH (20:39)
[2017-01-06] MEDS: ATORVASTATIN 40 MG TAB PO SCH (20:39)
[2017-01-07] VITALS (19 sets, daily range): BP systolic 139–167; BP diastolic 59–92; PULSE 50–95; RESP 16–27; TEMP 98.3–98.9; O2SAT 95–100
[2017-01-07] MEDS: FREE WATER G-TUBE SCH ×4 (00:02→18:00)
[2017-01-07] MEDS: RESP: ALBUTEROL 2.5 MG/IPRATROPIUM 0.5 MG NEB (SCH) NEB ×7 (00:15→23:39)
[2017-01-07] MEDS: INSULIN NovoLIN REGULAR SUPPLEMENTAL SCALE SQ SCH ×6 (01:15→20:43)
[2017-01-07] MEDS: AMPICILLIN-SULBACTAM INJ 1,500 MG in SODIUM CHLORIDE 0.9% INJ 100 ML IV SCH ×4 (02:48→20:44)
[2017-01-07] MEDS: PROPOFOL 1000 MG/100 ML INJ 100 ML IV SCH ×3 (02:48→20:47)
[2017-01-07] MEDS: CHLORHEXIDINE GLUCONATE 2 % 1 PACK (2 CLOTHS) TOP SCH (02:53)
--- NOTE | 2017-01-07 04:44 | RADRPT ---
EXAM DATE/TIME: 01/07/2017 03:11 [facility] COMPARISON: CHEST SINGLE AP, January 06, 2017, 4:21. INDICATIONS : Shortness of breath, possible pulmonary disease. MEDICAL HISTORY : Hypertension. Congestive heart failure. Myocardial infarction. CAD SURGICAL HISTORY : Pacemaker. CABG. Coronary artery stent. ENCOUNTER: Subsequent ACUITY: 1 week PAIN SCORE: Non-responsive. LOCATION: Bilateral chest FINDINGS: No significant change. Cardiomegaly, pulmonary vascular engorgement, bibasilar infiltrates, and small effusions remain. Tip of the endotracheal tube 3 cm proximal to owen. Nasogastric tube tip courses off the inferior margin of the film. Right subclavian central line. Left-sided pacing device. Median sternotomy wires. CONCLUSION: Unchanged exam. Sushil Abdi Jr., MD on January 07, 2017 at 4:41 Board Certified Radiologist. This report was verified electronically.
[2017-01-07 04:50] LABS: ANION GAP 7 MEQ/L (5-15); AST (GOT) 25 U/L (15-37); BICARBONATE 30.3 MEQ/L (21.0-32.0); BLOOD UREA NITROGEN 47 MG/DL (7-18); CHLORIDE 111 MEQ/L (98-107); GLOMERULAR FILTRATION RATE 47 ML/MIN (>89); MAGNESIUM 2.7 MG/DL (1.5-2.5); POTASSIUM 4.3 MEQ/L (3.5-5.1); SODIUM (NA) 148 MEQ/L (136-145)
[2017-01-07 04:52] LABS: AUTOMATED NEUTROPHIL # 12.1 TH/MM3 (1.8-7.7); HEMATOCRIT 34.4 % (39.0-51.0); HEMO FLAGS DIFF FINAL; LYMPH % 6.1 % (9.0-44.0); LYMPHOCYTE # 0.8 TH/MM3 (1.0-4.8); MEAN CELL VOLUME 83.8 FL (80.0-100.0); MEAN CORPUSCULAR HEMOGLOBIN 26.9 PG (27.0-34.0); MEAN CORPUSCULAR HGB CONC 32.1 % (32.0-36.0); MONO % 2.2 % (0.0-8.0); NEUT % 91.7 % (16.0-70.0); PLATELET COUNT 169 TH/MM3 (150-450); RED CELL DISTRIBUTION WIDTH 18.6 % (11.6-17.2); WHITE BLOOD COUNT 13.2 TH/MM3 (4.0-11.0)
[2017-01-07 04:54] LABS: ALKALINE PHOSPHATASE 79 U/L (45-117); ALT (GPT) 31 U/L (12-78); TOTAL BILIRUBIN ADULT 0.3 MG/DL (0.2-1.0)
[2017-01-07] MEDS: hydrALAZINE HCL 25 MG TAB PO SCH ×3 (05:24→21:03)
[2017-01-07] MEDS: METOCLOPRAMIDE HCL 10 MG/2 ML VIAL IV PUSH SCH ×3 (05:24→21:04)
[2017-01-07] MEDS: ISOSORBIDE DINITRATE 10 MG TAB PO SCH ×3 (05:24→21:03)
[2017-01-07] MEDS: HEPARIN SODIUM - SQ 10,000 UNITS/ML VIAL SQ SCH ×3 (05:24→21:04)
[2017-01-07] MEDS: CHLORHEXIDINE 0.12% (ORAL KIT) 15 ML CUP MT SCH ×2 (08:00→20:42)
[2017-01-07] MEDS: RESP: BUDESONIDE 0.5 MG/2 ML NEB NEB SCH ×2 (08:06→19:50)
[2017-01-07] MEDS: ARTIFICIAL TEARS OPTH SOLN 15 ML BTL EACH EYE SCH ×3 (09:00→18:00)
[2017-01-07] MEDS: INSULIN DETEMIR 100 UNITS/ML VIAL SQ SCH (09:00)
[2017-01-07 09:03] LABS: APTT (PATIENT) 26.4 SEC (24.3-30.1)
[2017-01-07] MEDS: SODIUM CHLORIDE 0.9% FLUSH 10 ML FLUSH SCH ×2 (09:30→20:44)
[2017-01-07] MEDS: SPIRONOLACTONE 25 MG TAB PO SCH (09:30)
[2017-01-07] MEDS: LINEZOLID 600 MG TAB PO SCH ×2 (09:30→20:46)
[2017-01-07] MEDS: BUMETANIDE INJ 1 MG/4 ML VIAL IV PUSH SCH ×2 (09:31→17:49)
[2017-01-07] MEDS: methylPREDNISolone SOD SUCC 125 MG/2 ML VIAL IV PUSH SCH ×2 (09:32→20:44)
[2017-01-07] MEDS: DOCUSATE SODIUM 100 MG/10 ML UDC G-TUBE SCH ×2 (09:32→20:44)
[2017-01-07] MEDS: CARVEDILOL 12.5 MG TAB PO SCH ×2 (09:32→20:45)
[2017-01-07] MEDS: SENNOSIDES SYRUP 8.8 MG/5 ML CUP PO SCH ×2 (09:32→20:45)
[2017-01-07] MEDS: FAMOTIDINE 20 MG TAB PO SCH ×2 (09:32→20:45)
[2017-01-07] MEDS: hydrALAZINE HCL 20 MG/ML VIAL IV PUSH PRN (10:23)
--- NOTE | 2017-01-07 11:31 | HHI.PR ---
Subjective Patient symptoms today Pt seen and examined. On CPAP. Objective Vital Signs Vital Signs Date Time Temp Pulse Resp B/P Pulse Ox O2 Delivery O2 Flow Rate FiO2 01/07/17 10:09 40 01/07/17 10:00 81 01/07/17 08:13 96 40 01/07/17 08:00 40 01/07/17 08:00 90 01/07/17 08:00 98.9 84 20 139/59 100 01/07/17 07:00 98 Mechanical Ventilator 40 01/07/17 06:00 73 01/07/17 04:25 98 40 01/07/17 04:00 40 01/07/17 04:00 80 01/07/17 04:00 98.4 80 16 139/59 97 01/07/17 02:00 67 01/07/17 00:41 98 40 01/07/17 00:00 98.3 50 16 149/74 100 01/07/17 00:00 50 01/07/17 00:00 40 01/06/17 22:38 16 01/06/17 22:00 48 01/06/17 20:00 98.4 60 16 175/74 100 01/06/17 20:00 40 01/06/17 20:00 60 01/06/17 19:57 100 40 01/06/17 19:00 99 Mechanical Ventilator 40 01/06/17 16:45 99 40 01/06/17 16:00 98.0 46 16 139/66 99 01/06/17 16:00 40 01/06/17 12:02 99 40 01/06/17 12:00 47 01/06/17 12:00 99.5 47 16 145/76 97 01/06/17 12:00 40 Intake & Output 01/07/17 01/07/17 07:00 19:00 Intake Total 2481 ml Output Total 1960.0 ml Balance 521.0 ml IV Total 1001 ml Tube Feeding 960 ml Other 520 ml Output Urine Total 1500 ml Stool Total 400 ml Tube Feeding Residual Discard 60.0 ml Result Diagram: 01/07/17 0400 01/07/17 0400 Imaging Last 24 hours Impressions Chest X-Ray 01/07/17 0600 Signed Impressions: Service Date/Time: Saturday, January 07, 2017 03:11 - CONCLUSION: Unchanged exam. Sushil Abdi Jr., MD Objective Remarks Abd:soft,nt,nd Capps: urine clear Wound: moderate drainage noted. Scrotal erythema improved. 12/30 Abd:soft,nt,nd Capps with clear urine Scrotal erythema improved. 12/31 Abd:soft,nt,nd Capps with clear urine Dressings in place. Ext: neg C/C/E 01/02 Abd:soft,nt,nd Wound: clean with kay drains in place. 01/03 Abd:soft,nt,nd Wound looks clean. Small kay drain removed. 01/06 Abd:soft,nt,nd Drains out 01/07 Abd:soft,nt,nd Wound looks good; healing Medications and IVs Current Medications Medications (Trade) Dose Ordered Sig/Abdiel Route Start Time Stop Time Status Last Admin (NS Flush) 2 ml UNSCH PRN .XX 12/28/16 20:15 (NS Flush) 2 ml BID .XX 12/28/16 21:00 01/07/17 09:30 (Tylenol) 650 mg Q6H PRN PO 12/28/16 20:15 12/29/16 13:42 (Tears Naturale Opth Soln) 1 drop TID EACH EYE 12/29/16 09:00 01/07/17 09:00 (Zofran Inj) 4 mg Q6H PRN IV 12/28/16 20:15 (Colace Liq) 100 mg Q12H G-TUBE 12/28/16 21:00 01/07/17 09:32 (Heparin Inj) 5,000 units Q8H SQ 12/28/16 22:00 01/07/17 05:24 Miscellaneous Information 1 Q361D XX 12/28/16 20:15 12/29/16 00:29 (Chlorhexidine 2% Cloth) Taper DAILY@04 TOP 12/29/16 04:00 12/25/17 03:59 01/04/17 04:00 (Chlorhexidine 2% Cloth) 3 pack UNSCH PRN TOP 12/28/16 20:15 (D50w (Vial) Inj) 25 ml UNSCH PRN IV PUSH 12/29/16 07:15 (Roxicodone) 5 mg Q4H PRN PO 12/29/16 15:00 01/04/17 10:41 (Lipitor) 40 mg HS PO 12/30/16 21:00 01/06/17 20:39 (Aldactone) 12.5 mg DAILY PO 12/31/16 09:00 01/07/17 09:30 (Pill Splitter) 1 ea UNSCH PRN OTHER 12/30/16 12:15 (Lasix Inj) 40 mg BID@09,18 IV PUSH 12/31/16 09:00 Hold (Pepcid) 10 mg BID PO 12/31/16 21:00 01/07/17 09:32 Chlorhexidine Gluconate 15 ml 15 ml BID@08,20 MT 12/31/16 20:00 01/07/17 08:00 (Diprivan 1000 Mg/100ml Inj) 100 ml @ 0 mls/hr TITRATE IV 12/31/16 16:00 01/07/17 06:14 (NovoLIN R SUPPLEMENTAL SCALE) 1 Q4HR SQ 01/01/17 12:00 01/07/17 08:00 (Trandate Inj) 10 mg Q1HR PRN IV PUSH 01/02/17 08:00 01/05/17 11:56 (Apresoline Inj) 10 mg Q1HR PRN IV PUSH 01/02/17 08:00 01/07/17 10:23 Nitroglycerin 2 inch 2 inch Q6HR PRN TOPICAL 01/02/17 08:00 01/02/17 08:44 (Precedex Inj/NS Inj) 50 ml @ 0 mls/hr TITRATE IV 01/02/17 12:27 01/04/17 08:44 (Dilaudid Pf Inj) 1 mg Q2H PRN IV PUSH 01/02/17 16:00 01/06/17 22:08 (Coreg) 25 mg BID PO 01/03/17 09:00 01/07/17 09:32 (SoluMEDROL INJ) 60 mg BID IV PUSH 01/03/17 09:00 01/07/17 09:32 (Senna Liq) 8.8 mg BID PO 01/03/17 09:00 01/07/17 09:32 (Apresoline) 25 mg Q8HR PO 01/03/17 06:30 01/07/17 05:24 (Isordil) 10 mg Q8HR PO 01/03/17 06:30 01/07/17 05:24 Glycerin 2 gm 2 gm BID PRN RECTAL 01/04/17 21:00 (Unasyn Inj/NS Inj) 100 ml @ 200 mls/hr Q6H IV 01/04/17 15:00 01/07/17 09:35 (Levemir Inj) 5 units DAILY SQ 01/05/17 09:00 01/07/17 09:00 (Reglan Inj) 5 mg Q8HR IV PUSH 01/05/17 06:30 01/07/17 05:24 (Bumex Inj) 1 mg BID@09,18 IV PUSH 01/06/17 09:00 01/07/17 09:31 (Free Water) VOLUME: 200 ML Q6HR G-TUBE 01/06/17 12:00 01/07/17 05:22 (Zyvox) 600 mg Q12HR PO 01/06/17 21:00 01/07/17 09:30 Assessment and Plan Assessment and Plan 71-year-old male with perineal/rectal abscess; 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 Patient will require IR intervention for debridement with washout. Risk and benefits discussed and patient is willing to proceed. 12/29 71 y.o male s/p debridement and washout of necrotizing fascitis Will plan to return to OR tomorrow for washout NPO after MN 12/30 71 y.o. male s/p debridement with washout of necrotizing fascitis OR today for washout. NPO 12/31 71 y.o. male s/p debridement with washout of necrotizing fascitis For washout with closure tomorrow in OR. NPO 01/02 Stable s/p debridement and washout of necrotizing fascitis Extubate today per SICU attending Will remove kay in a few days. 01/03 Stable s/p debridement and washout of necrotizing fascitis For Bronchoscopy today. Hopeful extubation soon. Will remove kay drains over weekend. 01/06 Stable s/p debridement and washout of necrotizing fascitis with closure Extubate/Trach Void trial when OOB and ambulating 01/07 Stable s/p debridement and washout of necrotizing fascitis with closure Void trial in future Call with questions Tim Ling DO Jan 07, 2017 11:31
--- NOTE | 2017-01-07 11:47 | HHI.CCPN ---
Subjective Remarks/Hospital Course 71-year-old male presents for evaluation of testicular swelling. Approximately 10 days ago he was started on Aldactone for his blood pressure which. He also noted that her sugars has been slightly elevated. Denies any fevers. He has been feeling generally weak as well. Denied abdominal pain nausea vomiting or diarrhea. He thought the scrotal swelling was from the Aldactone and came into the emergency department to be evaluated. 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 remains intubated overnight. off vasopressors. 12/30: Much more comfortable. Back to OR for washout today. Breathing without distress. STEFFEN improving. Patient has dilated cardiomyopathy with severe systolic heart failure and EF 25-30% by last ECHO 2013. May need low-dose inotrope during course of therapy. 12/30 1800 hrs: Seen after OR today. He has full neck veins and light wheezes with basilar crackles. His underlying LV dysfunction requires that we treat this aggressively with diuretics and subsequent electrolyte replacement. Will move back to [facility]. 12/31: Required rapid response for 2nd time in 12 hours. Will need intubation due to severe systolic heart failure and pulmonary edema. 01/01: Afebrile. Remains nothing by mouth for planned washout today. Decreased urine output noted. Hypertensive with sedation vacation. 01/02: Yesterday with washout and debridement without complication. Continues to be in A. fib intermittently rate controlled. Hemodynamically stable. One bowel movement. Will try spontaneous breathing trials today and attempt to extubate. If unsuccessful will initiate tube feeding. 01/03: Tmax 99.2. Episode of desaturation overnight recording FiO2 100%. Currently back to 50%. Chest x-ray essentially stable. Small left pleural effusion. Low lung volumes. Remains in a flutter rate controlled. Imminently bradycardic. 3 bowel movements on 01/02. Tolerating tube feeding. 01/04: FiO2 currently at 50%. We'll check CT chest. Possible need pleural effusions. Remains in a flutter rate control. Intermittently bradycardic. No bowel movement yesterday. Tube feeds currently off for possible extubation but tolerating previously. Afebrile 01/05: Remains on FiO2 of 50%. CT chest revealed small bilateral pleural effusions otherwise unremarkable. Noted is currently rate controlled. No bowel movement. Tube feeds at goal. Afebrile. Intermittently follows commands. Subjective: 01/06: FiO2 40%. Self extubated yesterday. Lasted about 20 Mr. for requiring intubation. Was on 100 percent nonrebreather. Saturations are 90%. During intubation, Ambu bag malfunctioned. Patient was quickly intubated and was arousable moving all 4 extremities prior to re-sedation. We'll attempt sedation vacation again today. 01/07: Remains ventilator dependent, failed extubation yesterday. Unable to wean today, weak. Objective Vital Signs Date Time Temp Pulse Resp B/P Pulse Ox O2 Delivery O2 Flow Rate FiO2 01/07/17 10:09 40 01/07/17 10:00 81 01/07/17 08:13 96 01/07/17 08:00 98.9 20 139/59 01/07/17 07:00 Mechanical Ventilator Intake and Output 01/06/17 01/06/17 01/07/17 08:00 16:00 00:00 Intake Total 996 ml 1047 ml 1245 ml Output Total 425 ml 1000 ml 1260.0 ml Balance 571 ml 47 ml -15.0 ml Result Diagram: 01/07/17 0400 01/07/17 0400 Imaging Last Impressions Chest X-Ray 01/06/17 0600 Signed Impressions: Service Date/Time: Friday, January 06, 2017 04:21 - CONCLUSION: Cardiomegaly with bilateral pleural effusions and bibasilar infiltrates. The radiographic pattern is most consistent with pulmonary edema. Sushil Abdi Jr., MD Abdomen X-Ray 01/05/17 0000 Signed Impressions: Service Date/Time: Thursday, January 05, 2017 07:23 - CONCLUSION: Nasogastric tube across the GE junction with minimal gaseous distention. Aba Dick MD FACR Chest CT 01/04/17 0000 Signed Impressions: Service Date/Time: Wednesday, January 04, 2017 12:03 - CONCLUSION: 1. Consolidative changes with small bilateral pleural effusions in both bases. 2. Extensive coronary artery calcifications. Aba Dick MD FACR Renal Ultrasound 01/01/17 0000 Signed Impressions: Service Date/Time: Sunday, January 01, 2017 09:12 - CONCLUSION: Normal examination. Sushil Abdi Jr., MD Scrotum Ultrasound 12/28/16 1246 Signed Impressions: Service Date/Time: Wednesday, December 28, 2016 14:05 - CONCLUSION: 1. Marked thickening of the scrotal wall, up to 2.4 cm on the right. 2. Small complex left hydrocele. 3. Small complex cysts right testicle. Positive testicular blood flow. Nael Scott MD Abdomen/Pelvis CT 12/28/16 1237 Signed Impressions: Service Date/Time: Wednesday, December 28, 2016 14:52 - CONCLUSION: 1. 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 2. Mild bilateral inguinal adenopathy and marked scrotal wall thickening. 3. Fat-containing 5.7 cm umbilical hernia. 4. Atherosclerotic aorta with some displaced intimal calcifications but without significant aneurysm. No bowel obstruction. Mild ileus. Nael Scott MD Objective Remarks GENERAL: 71-year-old male, critically ill currently orotracheally intubated SKIN: Warm and dry. No rash HEAD: Normocephalic. EYES: Pupils are 4 mm bilaterally and reactive. No scleral icterus. No injection or drainage. NECK: trachea midline.Supple. Right subclavian clean dry and intact CARDIOVASCULAR: Bradycardia, IR. Intermittently paced. S1, S2 no S4. Without murmur RESPIRATORY: Diminished breath sounds due to body habitus. Few crackles appreciated in the bases bilaterally. GASTROINTESTINAL: Abdomen soft, non-tender, obese. Hypoactive bowel sounds appreciated.. Umbilical hernia is reducible MUSCULOSKELETAL: Currently with trace to 1+ bilateral lower extremity pitting edema. Dorsalis pedis and posterior tibials are palpable bilaterally : Minimal scrotal edema. Packing which is clean and dry in the groin. A pimentel exits the penis meatus intact without blood. 4 [place] drains were removed today NEURO: Cranial nerves II through XII grossly intact. Moves all 4 extremities spontaneously. Withdraws to pain. 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 CV: Congestive heart failure/systolic ejection fraction 25% 2013 Limited echo EF 35-40% with akinesis apical myocardium History of CABG 4 Hypertension Dyslipidemia History of single-chamber defibrillator 08/19 due to positive EPS study Holding valsartan 320 mg by mouth daily for hypertension due to acute kidney injury Continue Lipitor 40 mg by mouth daily/home medication for dyslipidemia On Coreg 50 mg by mouth twice a day at home for hypertension - decreased to 25 twice a day yesterday with underlying bradycardia Continue hydralazine 25 3 times a day/Isordil 10 every 8 as adjuvant while creatinine elevated Milrinone was discontinued 01/01 due to dysrhythmias Echo 2013 - EF 25-30%. No regional wall motion abnormality. Left atrium dilated Limited echo 2016 reveals EF 35-40%. Akinesis apical myocardium. Left atrium mild dilatated. Mild MR. At home on Lasix 40 mg by mouth twice a day. 60 milligrams IV Lasix held due to worsening renal function Started Bumex 1 twice a day today attempt to diurese. Continue spironolactone 12.5 mg daily Given 2 doses of digoxin 0.25 mg IV 1. Recheck digoxin level in a.m. was less than 0.4 Dr. Rob cardiology seen for for underlying atrial flutter. Likely ischemic workup Likely will need full dose anticoagulation soon if okay with urology Resp: Acute hypoxemic respiratory failure Ongoing tobaccoism PRVC 16/60/0.85/5/50 Ventilator bundle Bronchodilator therapy every 4 hours and as needed Spontaneous breathing trials today. Adequate weaning parameters however FiO2 50 % Solu-Medrol 60 IV every 12 hours Follow-up chest x-ray GI: Gastroesophageal reflux disease 5.7 cm umbilical hernia Glucerna 1.5 goal 55 cc an hour Pepcid 10 mg twice a day for GI prophylaxis. On Prilosec 20 mg by mouth daily at home Colace/senna twice a day for bowel regimen Umbilical hernia seen on CT is reducible. : Becca's gangrene BPH Postop day #3 I&D 4 for Becca's gangrene/ necrotizing fasciitis posterior scrotum, perineum and right perirectal tissue Postop day #7 washout and debridement for his gangrene Postoperative day #5 washout and debridement of gangrene with placement of 4 [place] drains 12/28 revealed gas in his perineum/scrotum and the right gluteal cleft. Followed by urology/Dr. Ling Endo: Diabetes mellitus Gout Holding Tanzeum 50 mg subcutaneous weekly. Holding allopurinol 200 mg by mouth daily for gout Sliding scale insulin with Accu-Cheks every 4 hours to maintain euglycemia. 8 units of sliding scale insulin past 24 hours and started on Levemir 5 daily Renal: Acute kidney injury - baseline creatinine 1.[address] revealed no signs of hydronephrosis. Urine eosinophils negative. Renal ultrasound revealed no hydronephrosis Creatinine currently 1.5 and downward trending. No indications for hemodialysis at this point. Heme: Normocytic anemia Leukocytosis Daily CBC. Monitor trends Transfuse 2 units PRBCs during this hospital stay. No current indication for transfusion of blood proximally at this time. ID: Becca's gangrene Group A beta strep UTI Unasyn 1.5 IV every 6 hours Clindamycin 300 mg by mouth every 6 hours completed 01/02 Zyvox day #7 Pertinent cultures Sputum - 12/31 -no growth Abdomen abscess - 12/28 - Escherichia coli, E faecalis and coag negative staph Abdomen abscess - 12/28 - acid-fast bacilli/fungus negative Blood cultures 2 - 12/28 - no growth Urine culture - 12/28 -group A beta strep Infectious disease consulted. FEN: Hyper-magnesium Hypokalemia - resolved Hypernatremia Replace electrolytes as clinically indicated Added free water 200 every 6 MSK: PT/OT evaluate and treat Access - Right IJ CVL day #8 placed 12/31 - Left radial arterial line day #8 placed 12/31 Prophylaxis - GI - Pepcid - DVT - SCD/heparin subcutaneous Overall impression: Remains very weak, restricted by chronic poor cardiac function. Roshan Carlos MD Jan 07, 2017 11:47
[2017-01-07] MEDS: ATORVASTATIN 40 MG TAB PO SCH (20:45)
[2017-01-08] VITALS (18 sets, daily range): BP systolic 119–147; BP diastolic 58–65; PULSE 62–87; RESP 16–25; TEMP 98.4–100.3; O2SAT 93–99
[2017-01-08] MEDS: PROPOFOL 1000 MG/100 ML INJ 100 ML IV SCH ×3 (00:50→13:59)
[2017-01-08] MEDS: AMPICILLIN-SULBACTAM INJ 1,500 MG in SODIUM CHLORIDE 0.9% INJ 100 ML IV SCH ×4 (02:01→20:31)
[2017-01-08] MEDS: RESP: ALBUTEROL 2.5 MG/IPRATROPIUM 0.5 MG NEB (SCH) NEB ×3 (03:38→11:13)
[2017-01-08] MEDS: CHLORHEXIDINE GLUCONATE 2 % 1 PACK (2 CLOTHS) TOP SCH ×2 (03:53→19:33)
[2017-01-08] MEDS: INSULIN NovoLIN REGULAR SUPPLEMENTAL SCALE SQ SCH ×6 (05:08→20:30)
[2017-01-08] MEDS: ISOSORBIDE DINITRATE 10 MG TAB PO SCH ×3 (05:08→20:34)
[2017-01-08] MEDS: hydrALAZINE HCL 25 MG TAB PO SCH ×3 (05:08→20:34)
[2017-01-08] MEDS: FREE WATER G-TUBE SCH ×5 (05:08→20:35)
[2017-01-08] MEDS: HEPARIN SODIUM - SQ 10,000 UNITS/ML VIAL SQ SCH ×3 (05:09→20:35)
[2017-01-08] MEDS: METOCLOPRAMIDE HCL 10 MG/2 ML VIAL IV PUSH SCH ×3 (05:09→20:33)
[2017-01-08 05:34] LABS: BICARBONATE 34.1 MEQ/L (21.0-32.0); POTASSIUM 4.5 MEQ/L (3.5-5.1)
[2017-01-08] MEDS: RESP: BUDESONIDE 0.5 MG/2 ML NEB NEB SCH ×2 (07:51→19:21)
[2017-01-08] MEDS: CHLORHEXIDINE 0.12% (ORAL KIT) 15 ML CUP MT SCH ×2 (08:53→20:00)
[2017-01-08] MEDS: SODIUM CHLORIDE 0.9% FLUSH 10 ML FLUSH SCH ×2 (09:14→20:30)
[2017-01-08] MEDS: ARTIFICIAL TEARS OPTH SOLN 15 ML BTL EACH EYE SCH ×3 (09:14→18:17)
[2017-01-08] MEDS: BUMETANIDE INJ 1 MG/4 ML VIAL IV PUSH SCH ×2 (09:15→18:17)
[2017-01-08] MEDS: INSULIN DETEMIR 100 UNITS/ML VIAL SQ SCH (09:15)
[2017-01-08] MEDS: CARVEDILOL 12.5 MG TAB PO SCH ×2 (09:15→20:32)
[2017-01-08] MEDS: DOCUSATE SODIUM 100 MG/10 ML UDC G-TUBE SCH ×2 (09:15→20:31)
[2017-01-08] MEDS: FAMOTIDINE 20 MG TAB PO SCH ×2 (09:16→20:33)
[2017-01-08] MEDS: SPIRONOLACTONE 25 MG TAB PO SCH (09:16)
[2017-01-08] MEDS: LINEZOLID 600 MG TAB PO SCH (09:16)
[2017-01-08] MEDS: methylPREDNISolone SOD SUCC 125 MG/2 ML VIAL IV PUSH SCH ×2 (09:16→20:31)
[2017-01-08] MEDS: SENNOSIDES SYRUP 8.8 MG/5 ML CUP PO SCH ×2 (09:16→20:33)
--- NOTE | 2017-01-08 13:11 | HHI.IDPN ---
Subjective Subjective Remarks is a 71-year CM with PMHx of Diabetes who is on Tanzeum (GLP 1 agonist effects last upto once a week: its a subq injection). Patient reports he has been on this medication as despite good diet and compliance with meds his A1C was 7.7. He also reports history of pacemaker and defibrillator placement in 2016. He presents to the hospital due to testicular swelling. Patient reports swelling, discomfort and pain in the testicular area. He could not see it and does not know if he had a skin lesion prior to this episode at that site. He does report prior infections in the groin region. He also noted that her sugars has been slightly elevated. Denies any fevers. He has been feeling generally weak as well. ID consulted for sepsis, manisha's gangrene. D/w RN overnight events Remains on vent. Self extubated and reintubated few days back. Opens eyes and moves extremities on sedation vacation. Not much resp secretions. No fever No rash Has a dignishield to keep perineal operative area clean. Antibiotics Unasyn IV Zyvox oral Lines Line sites with no e.o infection Past Medical History reviewed. Allergies: Coded Allergies: No Known Allergies (Verified , 12/28/16) Objective . Vital Signs Date Time Temp Pulse Resp B/P Pulse Ox O2 Delivery O2 Flow Rate FiO2 01/08/17 12:00 81 01/08/17 12:00 98.6 87 25 141/60 93 01/08/17 12:00 40 01/08/17 11:13 95 40 01/08/17 10:00 81 01/08/17 08:00 40 01/08/17 08:00 100.3 82 22 131/60 94 01/08/17 08:00 82 01/08/17 07:53 94 40 01/08/17 07:53 40 01/08/17 07:00 98 Mechanical Ventilator 40 01/08/17 06:00 80 01/08/17 04:04 95 40 01/08/17 04:00 98.4 81 16 147/62 94 01/08/17 04:00 40 01/08/17 04:00 81 01/08/17 02:00 82 01/08/17 00:00 40 01/08/17 00:00 97 Mechanical Ventilator 40 01/08/17 00:00 98.5 82 16 119/58 96 01/08/17 00:00 82 01/07/17 23:55 97 40 01/07/17 22:00 82 01/07/17 20:00 98.7 82 18 167/92 97 01/07/17 20:00 82 01/07/17 20:00 97 Mechanical Ventilator 40 01/07/17 20:00 40 01/07/17 19:48 97 40 01/07/17 18:00 69 01/07/17 16:45 95 40 01/07/17 16:00 77 01/07/17 16:00 40 01/07/17 16:00 98.9 88 27 146/65 95 01/07/17 14:00 95 01/07/17 01/07/17 01/08/17 15:00 23:00 07:00 Intake Total 948 ml 784 ml 1238 ml Output Total 1100 ml 1300 ml 775 ml Balance -152 ml -516 ml 463 ml IV Total 347 ml 175 ml 350 ml Tube Feeding 481 ml 489 ml 488 ml Other 120 ml 120 ml 400 ml Output Urine Total 1100 ml 1200 ml 750 ml Stool Total 0 ml 100 ml 25 ml . Laboratory Tests Test 01/06/17 01/07/17 17:50 04:00 White Blood Count 10.7 TH/MM3 13.2 TH/MM3 Red Blood Count 3.87 MIL/MM3 4.10 MIL/MM3 Hemoglobin 10.4 GM/DL 11.0 GM/DL Hematocrit 32.2 % 34.4 % Mean Corpuscular Volume 83.3 FL 83.8 FL Mean Corpuscular Hemoglobin 27.0 PG 26.9 PG Mean Corpuscular Hemoglobin 32.4 % 32.1 % Concent Red Cell Distribution Width 18.5 % 18.6 % Platelet Count 148 TH/MM3 169 TH/MM3 Mean Platelet Volume 9.1 FL 9.1 FL Neutrophils (%) (Auto) 91.7 % Lymphocytes (%) (Auto) 6.1 % Monocytes (%) (Auto) 2.2 % Eosinophils (%) (Auto) 0.0 % Basophils (%) (Auto) 0.0 % Neutrophils # (Auto) 12.1 TH/MM3 Lymphocytes # (Auto) 0.8 TH/MM3 Monocytes # (Auto) 0.3 TH/MM3 Eosinophils # (Auto) 0.0 TH/MM3 Basophils # (Auto) 0.0 TH/MM3 CBC Comment DIFF FINAL Differential Comment Laboratory Tests Test 01/07/17 01/08/17 04:00 04:45 Sodium Level 148 MEQ/L 147 MEQ/L Potassium Level 4.3 MEQ/L 4.5 MEQ/L Chloride Level 111 MEQ/L 109 MEQ/L Carbon Dioxide Level 30.3 MEQ/L 34.1 MEQ/L Anion Gap 7 MEQ/L 4 MEQ/L Blood Urea Nitrogen 47 MG/DL 47 MG/DL Creatinine 1.48 MG/DL 1.36 MG/DL Estimat Glomerular Filtration 47 ML/MIN 52 ML/MIN Rate Random Glucose 210 MG/DL 219 MG/DL Calcium Level 8.0 MG/DL 7.9 MG/DL Phosphorus Level 3.3 MG/DL Magnesium Level 2.7 MG/DL Total Bilirubin 0.3 MG/DL Aspartate Amino Transf 25 U/L (AST/SGOT) Alanine Aminotransferase 31 U/L (ALT/SGPT) Alkaline Phosphatase 79 U/L Total Protein 5.5 GM/DL Albumin 2.3 GM/DL Imaging Last Impressions Chest X-Ray 01/03/17 0600 Signed Impressions: Service Date/Time: Tuesday, January 03, 2017 05:38 - CONCLUSION: 1. Mild bibasilar opacity representing either atelectasis, consolidation, or pleural effusion. 2. Stable enlargement of the cardiac silhouette. Camden Brennan MD Renal Ultrasound 01/01/17 0000 Signed Impressions: Service Date/Time: Sunday, January 01, 2017 09:12 - CONCLUSION: Normal examination. Sushil Abdi Jr., MD Scrotum Ultrasound 12/28/16 1246 Signed Impressions: Service Date/Time: Wednesday, December 28, 2016 14:05 - CONCLUSION: 1. Marked thickening of the scrotal wall, up to 2.4 cm on the right. 2. Small complex left hydrocele. 3. Small complex cysts right testicle. Positive testicular blood flow. Nael Scott MD Abdomen/Pelvis CT 12/28/16 1237 Signed Impressions: Service Date/Time: Wednesday, December 28, 2016 14:52 - CONCLUSION: 1. 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 2. Mild bilateral inguinal adenopathy and marked scrotal wall thickening. 3. Fat-containing 5.7 cm umbilical hernia. 4. Atherosclerotic aorta with some displaced intimal calcifications but without significant aneurysm. No bowel obstruction. Mild ileus. Nael Scott MD Physical Exam GENERAL: Obese, CM patient, in no apparent distress. SKIN: No rashes. HEAD: Atraumatic. Normocephalic. No temporal or scalp tenderness. EYES: Pupils equal round and reactive. Extraocular motions intact. No scleral icterus. No injection or drainage. ENT: Intubated NECK: Trachea midline. Supple, nontender, no meningeal signs. CARDIOVASCULAR: Regular rate and rhythm without murmurs, gallops, or rubs. RESPIRATORY: Clear to auscultation. Breath sounds equal bilaterally. GASTROINTESTINAL: Abdomen soft, non-tender, nondistended. Umbilical hernia noted. MUSCULOSKELETAL: Extremities without clubbing, cyanosis, or edema. Scrotal area with erythema noted. Packing noted. NEUROLOGICAL: Sedated Psych: could not be assessed. IV line sites with no e.o infection. 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 E.faecalis, E.coli and Coag neg staph infection. Pulm edema: on vent Acute resp failure on Vent Grp D Enterococcus vs Strep in wound. Gram negative infection in groin. Diabetes Mellitus uncontrolled. H/o recurrent groin area infections. Acute renal failure: prerenal, sepsis. CAD, CABG, s/p defibrillator and pacemaker. Ef 20% on ECHO this admit per tech. Recs: Continue Unasyn IV plan on IV 4 weeks. If continues to improve at some point may convert to oral depending on clinical condition on follow up. DC Zyvox IV completed 14 days from last culture for Coag neg staph in intraop cultures. Follow cultures Follow clinically. d/w RN Will follow prn. Please call sooner if any change in clinical condition or questions. Recommend from ID standpoint once a week CBC with diff, CMP once a week while on antibiotics. To be ordered and followed by primary team (CCM/hospitalist). Please call with any abnormal labs or concerns. Joan Woods MD Jan 08, 2017 13:11
[2017-01-08] MEDS: ATORVASTATIN 40 MG TAB PO SCH (20:33)
[2017-01-09] VITALS (16 sets, daily range): BP systolic 138–155; BP diastolic 8–76; PULSE 56–92; RESP 16–24; TEMP 98–98.7; O2SAT 92–98
[2017-01-09] MEDS: hydrALAZINE HCL 20 MG/ML VIAL IV PUSH PRN (04:16)
[2017-01-09] MEDS: AMPICILLIN-SULBACTAM INJ 1,500 MG in SODIUM CHLORIDE 0.9% INJ 100 ML IV SCH ×4 (04:16→20:07)
[2017-01-09 05:10] LABS: HEMATOCRIT 33.6 % (39.0-51.0); MEAN CELL VOLUME 84.2 FL (80.0-100.0); MEAN CORPUSCULAR HEMOGLOBIN 26.7 PG (27.0-34.0); MEAN CORPUSCULAR HGB CONC 31.7 % (32.0-36.0); PLATELET COUNT 126 TH/MM3 (150-450); RED BLOOD COUNT 3.99 MIL/MM3 (4.50-5.90); RED CELL DISTRIBUTION WIDTH 18.5 % (11.6-17.2); REVIEW FLAG FINAL; WHITE BLOOD COUNT 11.8 TH/MM3 (4.0-11.0)
[2017-01-09] MEDS: FREE WATER G-TUBE SCH ×3 (05:32→17:24)
[2017-01-09] MEDS: INSULIN NovoLIN REGULAR SUPPLEMENTAL SCALE SQ SCH ×6 (05:32→20:09)
[2017-01-09] MEDS: ISOSORBIDE DINITRATE 10 MG TAB PO SCH ×3 (05:33→20:11)
[2017-01-09] MEDS: METOCLOPRAMIDE HCL 10 MG/2 ML VIAL IV PUSH SCH ×3 (05:33→20:10)
[2017-01-09] MEDS: hydrALAZINE HCL 25 MG TAB PO SCH ×3 (05:33→20:10)
[2017-01-09] MEDS: HEPARIN SODIUM - SQ 10,000 UNITS/ML VIAL SQ SCH ×3 (05:34→20:11)
[2017-01-09] MEDS: RESP: ALBUTEROL 2.5 MG/IPRATROPIUM 0.5 MG NEB (PRN) INH (07:24)
[2017-01-09] MEDS: RESP: BUDESONIDE 0.5 MG/2 ML NEB NEB SCH ×2 (07:24→19:51)
[2017-01-09] MEDS: CHLORHEXIDINE 0.12% (ORAL KIT) 15 ML CUP MT SCH ×2 (08:00→20:00)
[2017-01-09] MEDS: INSULIN DETEMIR 100 UNITS/ML VIAL SQ SCH (09:00)
[2017-01-09] MEDS: SODIUM CHLORIDE 0.9% FLUSH 10 ML FLUSH SCH ×2 (09:00→20:09)
[2017-01-09] MEDS: SENNOSIDES SYRUP 8.8 MG/5 ML CUP PO SCH ×2 (09:14→20:06)
[2017-01-09] MEDS: DOCUSATE SODIUM 100 MG/10 ML UDC G-TUBE SCH ×2 (09:14→20:06)
[2017-01-09] MEDS: FAMOTIDINE 20 MG TAB PO SCH ×2 (09:20→20:07)
[2017-01-09] MEDS: SPIRONOLACTONE 25 MG TAB PO SCH (09:20)
[2017-01-09] MEDS: ARTIFICIAL TEARS OPTH SOLN 15 ML BTL EACH EYE SCH ×3 (09:21→17:42)
[2017-01-09] MEDS: methylPREDNISolone SOD SUCC 125 MG/2 ML VIAL IV PUSH SCH (09:21)
[2017-01-09] MEDS: CARVEDILOL 12.5 MG TAB PO SCH ×2 (09:27→20:08)
[2017-01-09] MEDS: BUMETANIDE INJ 1 MG/4 ML VIAL IV PUSH SCH ×2 (09:59→17:24)
--- NOTE | 2017-01-09 13:35 | HHI.CCPN ---
Subjective Remarks/Hospital Course Note for 01/08/17: 71-year-old male presents for evaluation of testicular swelling. Approximately 10 days ago he was started on Aldactone for his blood pressure which. He also noted that her sugars has been slightly elevated. Denies any fevers. He has been feeling generally weak as well. Denied abdominal pain nausea vomiting or diarrhea. He thought the scrotal swelling was from the Aldactone and came into the emergency department to be evaluated. 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 remains intubated overnight. off vasopressors. 12/30: Much more comfortable. Back to OR for washout today. Breathing without distress. STEFFEN improving. Patient has dilated cardiomyopathy with severe systolic heart failure and EF 25-30% by last ECHO 2013. May need low-dose inotrope during course of therapy. 12/30 1800 hrs: Seen after OR today. He has full neck veins and light wheezes with basilar crackles. His underlying LV dysfunction requires that we treat this aggressively with diuretics and subsequent electrolyte replacement. Will move back to [facility]. 12/31: Required rapid response for 2nd time in 12 hours. Will need intubation due to severe systolic heart failure and pulmonary edema. 01/01: Afebrile. Remains nothing by mouth for planned washout today. Decreased urine output noted. Hypertensive with sedation vacation. 01/02: Yesterday with washout and debridement without complication. Continues to be in A. fib intermittently rate controlled. Hemodynamically stable. One bowel movement. Will try spontaneous breathing trials today and attempt to extubate. If unsuccessful will initiate tube feeding. 01/03: Tmax 99.2. Episode of desaturation overnight recording FiO2 100%. Currently back to 50%. Chest x-ray essentially stable. Small left pleural effusion. Low lung volumes. Remains in a flutter rate controlled. Imminently bradycardic. 3 bowel movements on 01/02. Tolerating tube feeding. 01/04: FiO2 currently at 50%. We'll check CT chest. Possible need pleural effusions. Remains in a flutter rate control. Intermittently bradycardic. No bowel movement yesterday. Tube feeds currently off for possible extubation but tolerating previously. Afebrile 01/05: Remains on FiO2 of 50%. CT chest revealed small bilateral pleural effusions otherwise unremarkable. Noted is currently rate controlled. No bowel movement. Tube feeds at goal. Afebrile. Intermittently follows commands. Subjective: 01/06: FiO2 40%. Self extubated yesterday. Lasted about 20 Mr. for requiring intubation. Was on 100 percent nonrebreather. Saturations are 90%. During intubation, Ambu bag malfunctioned. Patient was quickly intubated and was arousable moving all 4 extremities prior to re-sedation. We'll attempt sedation vacation again today. 01/07: Remains ventilator dependent, failed extubation yesterday. Unable to wean today, weak. 01/08: Tolerating CPAP trials but unable to extubate. Objective Vital Signs Date Time Temp Pulse Resp B/P Pulse Ox O2 Delivery O2 Flow Rate FiO2 01/09/17 12:12 92 01/09/17 12:12 98.0 24 154/8 95 01/09/17 11:01 40 01/09/17 07:00 Mechanical Ventilator Intake and Output 01/08/17 01/08/17 01/09/17 08:00 16:00 00:00 Intake Total 1238 ml 1214 ml 920 ml Output Total 775 ml 1700 ml 1200 ml Balance 463 ml -486 ml -280 ml Result Diagram: 01/09/17 0445 01/08/17 0445 Imaging Last Impressions Chest X-Ray 01/06/17 0600 Signed Impressions: Service Date/Time: Friday, January 06, 2017 04:21 - CONCLUSION: Cardiomegaly with bilateral pleural effusions and bibasilar infiltrates. The radiographic pattern is most consistent with pulmonary edema. Sushil Abdi Jr., MD Abdomen X-Ray 01/05/17 0000 Signed Impressions: Service Date/Time: Thursday, January 05, 2017 07:23 - CONCLUSION: Nasogastric tube across the GE junction with minimal gaseous distention. Aba Dick MD FACR Chest CT 01/04/17 0000 Signed Impressions: Service Date/Time: Wednesday, January 04, 2017 12:03 - CONCLUSION: 1. Consolidative changes with small bilateral pleural effusions in both bases. 2. Extensive coronary artery calcifications. Aba Dick MD FACR Renal Ultrasound 01/01/17 0000 Signed Impressions: Service Date/Time: Sunday, January 01, 2017 09:12 - CONCLUSION: Normal examination. Sushil Abdi Jr., MD Scrotum Ultrasound 12/28/16 1246 Signed Impressions: Service Date/Time: Wednesday, December 28, 2016 14:05 - CONCLUSION: 1. Marked thickening of the scrotal wall, up to 2.4 cm on the right. 2. Small complex left hydrocele. 3. Small complex cysts right testicle. Positive testicular blood flow. Nael Scott MD Abdomen/Pelvis CT 12/28/16 1237 Signed Impressions: Service Date/Time: Wednesday, December 28, 2016 14:52 - CONCLUSION: 1. 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 2. Mild bilateral inguinal adenopathy and marked scrotal wall thickening. 3. Fat-containing 5.7 cm umbilical hernia. 4. Atherosclerotic aorta with some displaced intimal calcifications but without significant aneurysm. No bowel obstruction. Mild ileus. Nael Scott MD Objective Remarks GENERAL: 71-year-old male, critically ill currently orotracheally intubated SKIN: Warm and dry. No rash HEAD: Normocephalic. EYES: Pupils are 4 mm bilaterally and reactive. No scleral icterus. No injection or drainage. NECK: trachea midline.Supple. Right subclavian clean dry and intact CARDIOVASCULAR: Bradycardia, IR. Intermittently paced. S1, S2 no S4. Without murmur RESPIRATORY: Diminished breath sounds due to body habitus. Few crackles appreciated in the bases bilaterally. GASTROINTESTINAL: Abdomen soft, non-tender, obese. Hypoactive bowel sounds appreciated.. Umbilical hernia is reducible MUSCULOSKELETAL: Currently with trace to 1+ bilateral lower extremity pitting edema. Dorsalis pedis and posterior tibials are palpable bilaterally : Minimal scrotal edema. Packing which is clean and dry in the groin. A pimentel exits the penis meatus intact without blood. 4 Tatiana drains were removed today NEURO: Cranial nerves II through XII grossly intact. Moves all 4 extremities spontaneously. Withdraws to pain. 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 CV: Congestive heart failure/systolic ejection fraction 25% 2013 Limited echo EF 35-40% with akinesis apical myocardium History of CABG 4 Hypertension Dyslipidemia History of single-chamber defibrillator 08/19 due to positive EPS study Holding valsartan 320 mg by mouth daily for hypertension due to acute kidney injury Continue Lipitor 40 mg by mouth daily/home medication for dyslipidemia On Coreg 50 mg by mouth twice a day at home for hypertension - decreased to 25 twice a day yesterday with underlying bradycardia Continue hydralazine 25 3 times a day/Isordil 10 every 8 as adjuvant while creatinine elevated Milrinone was discontinued 01/01 due to dysrhythmias Echo 2013 - EF 25-30%. No regional wall motion abnormality. Left atrium dilated Limited echo 2016 reveals EF 35-40%. Akinesis apical myocardium. Left atrium mild dilatated. Mild MR. At home on Lasix 40 mg by mouth twice a day. 60 milligrams IV Lasix held due to worsening renal function Started Bumex 1 twice a day today attempt to diurese. Continue spironolactone 12.5 mg daily Given 2 doses of digoxin 0.25 mg IV 1. Recheck digoxin level in a.m. was less than 0.4 Dr. Rob cardiology seen for for underlying atrial flutter. Likely ischemic workup Likely will need full dose anticoagulation soon if okay with urology Resp: Acute hypoxemic respiratory failure Ongoing tobaccoism PRVC 16/60/0.85/5/50 Ventilator bundle Bronchodilator therapy every 4 hours and as needed Spontaneous breathing trials today. Adequate weaning parameters however FiO2 50 % Solu-Medrol 60 IV every 12 hours Follow-up chest x-ray GI: Gastroesophageal reflux disease 5.7 cm umbilical hernia Glucerna 1.5 goal 55 cc an hour Pepcid 10 mg twice a day for GI prophylaxis. On Prilosec 20 mg by mouth daily at home Colace/senna twice a day for bowel regimen Umbilical hernia seen on CT is reducible. : Becca's gangrene BPH Postop day #4 I&D 4 for Becca's gangrene/ necrotizing fasciitis posterior scrotum, perineum and right perirectal tissue Postop day #8 washout and debridement for his gangrene Postoperative day #6 washout and debridement of gangrene with placement of 4 Tatiana drains 12/28 revealed gas in his perineum/scrotum and the right gluteal cleft. Followed by urology/Dr. Ling Endo: Diabetes mellitus Gout Holding Tanzeum 50 mg subcutaneous weekly. Holding allopurinol 200 mg by mouth daily for gout Sliding scale insulin with Accu-Cheks every 4 hours to maintain euglycemia. 8 units of sliding scale insulin past 24 hours and started on Levemir 5 daily Renal: Acute kidney injury - baseline creatinine 1.[address] revealed no signs of hydronephrosis. Urine eosinophils negative. Renal ultrasound revealed no hydronephrosis Creatinine currently 1.5 and downward trending. No indications for hemodialysis at this point. Heme: Normocytic anemia Leukocytosis Daily CBC. Monitor trends Transfuse 2 units PRBCs during this hospital stay. No current indication for transfusion of blood proximally at this time. ID: Becca's gangrene Group A beta strep UTI Unasyn 1.5 IV every 6 hours Clindamycin 300 mg by mouth every 6 hours completed 01/02 Zyvox day #7 Pertinent cultures Sputum - 12/31 -no growth Abdomen abscess - 12/28 - Escherichia coli, E faecalis and coag negative staph Abdomen abscess - 12/28 - acid-fast bacilli/fungus negative Blood cultures 2 - 12/28 - no growth Urine culture - 12/28 -group A beta strep Infectious disease consulted. FEN: Hyper-magnesium Hypokalemia - resolved Hypernatremia Replace electrolytes as clinically indicated Added free water 200 every 6 MSK: PT/OT evaluate and treat Access - Right IJ CVL day #9 placed 3 - Left radial arterial line day #9 placed 3 Prophylaxis - GI - Pepcid - DVT - SCD/heparin subcutaneous Overall impression: Remains very weak, restricted by chronic poor cardiac function. Stable for LTAC transfer anytime for vent weaning. Roshan Carlos MD Jan 09, 2017 13:35
--- NOTE | 2017-01-09 13:39 | HHI.CCPN ---
Subjective Remarks/Hospital Course Note for 01/09/17: 71-year-old male presents for evaluation of testicular swelling. Approximately 10 days ago he was started on Aldactone for his blood pressure which. He also noted that her sugars has been slightly elevated. Denies any fevers. He has been feeling generally weak as well. Denied abdominal pain nausea vomiting or diarrhea. He thought the scrotal swelling was from the Aldactone and came into the emergency department to be evaluated. 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 remains intubated overnight. off vasopressors. 12/30: Much more comfortable. Back to OR for washout today. Breathing without distress. STEFFEN improving. Patient has dilated cardiomyopathy with severe systolic heart failure and EF 25-30% by last ECHO 2013. May need low-dose inotrope during course of therapy. 12/30 1800 hrs: Seen after OR today. He has full neck veins and light wheezes with basilar crackles. His underlying LV dysfunction requires that we treat this aggressively with diuretics and subsequent electrolyte replacement. Will move back to [facility]. 12/31: Required rapid response for 2nd time in 12 hours. Will need intubation due to severe systolic heart failure and pulmonary edema. 01/01: Afebrile. Remains nothing by mouth for planned washout today. Decreased urine output noted. Hypertensive with sedation vacation. 01/02: Yesterday with washout and debridement without complication. Continues to be in A. fib intermittently rate controlled. Hemodynamically stable. One bowel movement. Will try spontaneous breathing trials today and attempt to extubate. If unsuccessful will initiate tube feeding. 01/03: Tmax 99.2. Episode of desaturation overnight recording FiO2 100%. Currently back to 50%. Chest x-ray essentially stable. Small left pleural effusion. Low lung volumes. Remains in a flutter rate controlled. Imminently bradycardic. 3 bowel movements on 01/02. Tolerating tube feeding. 01/04: FiO2 currently at 50%. We'll check CT chest. Possible need pleural effusions. Remains in a flutter rate control. Intermittently bradycardic. No bowel movement yesterday. Tube feeds currently off for possible extubation but tolerating previously. Afebrile 01/05: Remains on FiO2 of 50%. CT chest revealed small bilateral pleural effusions otherwise unremarkable. Noted is currently rate controlled. No bowel movement. Tube feeds at goal. Afebrile. Intermittently follows commands. Subjective: 01/06: FiO2 40%. Self extubated yesterday. Lasted about 20 Mr. for requiring intubation. Was on 100 percent nonrebreather. Saturations are 90%. During intubation, Ambu bag malfunctioned. Patient was quickly intubated and was arousable moving all 4 extremities prior to re-sedation. We'll attempt sedation vacation again today. 01/07: Remains ventilator dependent, failed extubation yesterday. Unable to wean today, weak. 01/08: Tolerating CPAP trials but unable to extubate. 01/09: Plan transfer to LTAC. Objective Vital Signs Date Time Temp Pulse Resp B/P Pulse Ox O2 Delivery O2 Flow Rate FiO2 01/09/17 12:12 92 01/09/17 12:12 98.0 24 154/8 95 01/09/17 11:01 40 01/09/17 07:00 Mechanical Ventilator Intake and Output 01/08/17 01/08/17 01/09/17 08:00 16:00 00:00 Intake Total 1238 ml 1214 ml 920 ml Output Total 775 ml 1700 ml 1200 ml Balance 463 ml -486 ml -280 ml Result Diagram: 01/09/17 0445 01/08/17 0445 Imaging Last Impressions Chest X-Ray 01/06/17 0600 Signed Impressions: Service Date/Time: Friday, January 06, 2017 04:21 - CONCLUSION: Cardiomegaly with bilateral pleural effusions and bibasilar infiltrates. The radiographic pattern is most consistent with pulmonary edema. Sushil Abdi Jr., MD Abdomen X-Ray 01/05/17 0000 Signed Impressions: Service Date/Time: Thursday, January 05, 2017 07:23 - CONCLUSION: Nasogastric tube across the GE junction with minimal gaseous distention. Aba Dick MD FACR Chest CT 01/04/17 0000 Signed Impressions: Service Date/Time: Wednesday, January 04, 2017 12:03 - CONCLUSION: 1. Consolidative changes with small bilateral pleural effusions in both bases. 2. Extensive coronary artery calcifications. Aba Dick MD FACR Renal Ultrasound 01/01/17 0000 Signed Impressions: Service Date/Time: Sunday, January 01, 2017 09:12 - CONCLUSION: Normal examination. Sushil Abdi Jr., MD Scrotum Ultrasound 12/28/16 1246 Signed Impressions: Service Date/Time: Wednesday, December 28, 2016 14:05 - CONCLUSION: 1. Marked thickening of the scrotal wall, up to 2.4 cm on the right. 2. Small complex left hydrocele. 3. Small complex cysts right testicle. Positive testicular blood flow. Nael Scott MD Abdomen/Pelvis CT 12/28/16 1237 Signed Impressions: Service Date/Time: Wednesday, December 28, 2016 14:52 - CONCLUSION: 1. 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 2. Mild bilateral inguinal adenopathy and marked scrotal wall thickening. 3. Fat-containing 5.7 cm umbilical hernia. 4. Atherosclerotic aorta with some displaced intimal calcifications but without significant aneurysm. No bowel obstruction. Mild ileus. Nael Scott MD Objective Remarks GENERAL: 71-year-old male, critically ill currently orotracheally intubated SKIN: Warm and dry. No rash HEAD: Normocephalic. EYES: Pupils are 4 mm bilaterally and reactive. No scleral icterus. No injection or drainage. NECK: trachea midline.Supple. Right subclavian clean dry and intact CARDIOVASCULAR: Bradycardia, IR. Intermittently paced. S1, S2 no S4. Without murmur RESPIRATORY: Diminished breath sounds due to body habitus. Few crackles appreciated in the bases bilaterally. GASTROINTESTINAL: Abdomen soft, non-tender, obese. Hypoactive bowel sounds appreciated.. Umbilical hernia is reducible MUSCULOSKELETAL: Currently with trace to 1+ bilateral lower extremity pitting edema. Dorsalis pedis and posterior tibials are palpable bilaterally : Minimal scrotal edema. Packing which is clean and dry in the groin. NEURO: Moves all 4 extremities spontaneously. Withdraws to pain. Follows commands off sedation. 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 CV: Congestive heart failure/systolic ejection fraction 25% 2013 Limited echo EF 35-40% with akinesis apical myocardium History of CABG 4 Hypertension Dyslipidemia History of single-chamber defibrillator 08/19 due to positive EPS study Holding valsartan 320 mg by mouth daily for hypertension due to acute kidney injury Continue Lipitor 40 mg by mouth daily/home medication for dyslipidemia On Coreg 50 mg by mouth twice a day at home for hypertension - decreased to 25 twice a day yesterday with underlying bradycardia Continue hydralazine 25 3 times a day/Isordil 10 every 8 as adjuvant while creatinine elevated Milrinone was discontinued 01/01 due to dysrhythmias Echo 2013 - EF 25-30%. No regional wall motion abnormality. Left atrium dilated Limited echo 2016 reveals EF 35-40%. Akinesis apical myocardium. Left atrium mild dilatated. Mild MR. At home on Lasix 40 mg by mouth twice a day. 60 milligrams IV Lasix held due to worsening renal function Started Bumex 1 twice a day today attempt to diurese. Continue spironolactone 12.5 mg daily Given 2 doses of digoxin 0.25 mg IV 1. Recheck digoxin level in a.m. was less than 0.4 Dr. Rob cardiology seen for for underlying atrial flutter. Likely ischemic workup Likely will need full dose anticoagulation soon if okay with urology Resp: Acute hypoxemic respiratory failure Ongoing tobaccoism PRVC 16/60/0.85/5/50 Ventilator bundle Bronchodilator therapy every 4 hours and as needed Spontaneous breathing trials today. Adequate weaning parameters however FiO2 50 % Solu-Medrol 60 IV every 12 hours Follow-up chest x-ray GI: Gastroesophageal reflux disease 5.7 cm umbilical hernia Glucerna 1.5 goal 55 cc an hour Pepcid 10 mg twice a day for GI prophylaxis. On Prilosec 20 mg by mouth daily at home Colace/senna twice a day for bowel regimen Umbilical hernia seen on CT is reducible. : Becca's gangrene BPH Postop day #5 I&D 4 for Becca's gangrene/ necrotizing fasciitis posterior scrotum, perineum and right perirectal tissue Postop day #9 washout and debridement for his gangrene Postoperative day #7 washout and debridement of gangrene with placement of 4 [place] drains 12/28 revealed gas in his perineum/scrotum and the right gluteal cleft. Followed by urology/Dr. Ling Endo: Diabetes mellitus Gout Holding Tanzeum 50 mg subcutaneous weekly. Holding allopurinol 200 mg by mouth daily for gout Sliding scale insulin with Accu-Cheks every 4 hours to maintain euglycemia. 8 units of sliding scale insulin past 24 hours and started on Levemir 5 daily Renal: Acute kidney injury - baseline creatinine 1.[address] revealed no signs of hydronephrosis. Urine eosinophils negative. Renal ultrasound revealed no hydronephrosis Creatinine currently 1.5 and downward trending. No indications for hemodialysis at this point. Heme: Normocytic anemia Leukocytosis Daily CBC. Monitor trends Transfuse 2 units PRBCs during this hospital stay. No current indication for transfusion of blood proximally at this time. ID: Becca's gangrene Group A beta strep UTI Unasyn 1.5 IV every 6 hours Clindamycin 300 mg by mouth every 6 hours completed 01/02 Zyvox day #9 Pertinent cultures Sputum - 12/31 -no growth Abdomen abscess - 12/28 - Escherichia coli, E faecalis and coag negative staph Abdomen abscess - 12/28 - acid-fast bacilli/fungus negative Blood cultures 2 - 12/28 - no growth Urine culture - 12/28 -group A beta strep Infectious disease consulted. FEN: Hyper-magnesium Hypokalemia - resolved Hypernatremia Replace electrolytes as clinically indicated Added free water 200 every 6 MSK: PT/OT evaluate and treat Access - Right IJ CVL day #10 placed 12/31 - Left radial arterial line day #9 placed 12/31 Prophylaxis - GI - Pepcid - DVT - SCD/heparin subcutaneous Overall impression: Remains very weak, restricted by chronic poor cardiac function. Stable for LTAC transfer anytime for vent weaning. Will get abx recommendations from ID prior to transport. Roshan Carlos MD Jan 09, 2017 13:39
[2017-01-09] MEDS: PROPOFOL 1000 MG/100 ML INJ 100 ML IV SCH ×2 (18:35→20:06)
[2017-01-09] MEDS: methylPREDNISolone SOD SUCC 40 MG/1 ML VIAL IV SCH (20:07)
[2017-01-09] MEDS: ATORVASTATIN 40 MG TAB PO SCH (20:08)
[2017-01-09] MEDS: ACETAMINOPHEN 325 MG TAB PO PRN (20:08)
[2017-01-09] MEDS: CHLORHEXIDINE GLUCONATE 2 % 1 PACK (2 CLOTHS) TOP SCH (20:11)
[2017-01-10] VITALS (22 sets, daily range): BP systolic 147–196; BP diastolic 64–89; PULSE 58–97; RESP 16–27; TEMP 98.6–99.7; O2SAT 92–100
[2017-01-10] MEDS: PROPOFOL 1000 MG/100 ML INJ 100 ML IV SCH ×4 (02:06→20:30)
[2017-01-10] MEDS: AMPICILLIN-SULBACTAM INJ 1,500 MG in SODIUM CHLORIDE 0.9% INJ 100 ML IV SCH ×4 (04:14→21:00)
[2017-01-10] MEDS: hydrALAZINE HCL 20 MG/ML VIAL IV PUSH PRN (04:15)
[2017-01-10 04:23] LABS: AUTOMATED NEUTROPHIL # 10.7 TH/MM3 (1.8-7.7); BASOPHIL % 0.1 % (0.0-2.0); HEMATOCRIT 30.1 % (39.0-51.0); HEMO FLAGS DIFF FINAL; LYMPH % 7.7 % (9.0-44.0); MEAN CELL VOLUME 82.8 FL (80.0-100.0); MEAN CORPUSCULAR HEMOGLOBIN 27.4 PG (27.0-34.0); MONO % 7.7 % (0.0-8.0); NEUT % 84.5 % (16.0-70.0); PLATELET COUNT 125 TH/MM3 (150-450); RED BLOOD COUNT 3.63 MIL/MM3 (4.50-5.90); RED CELL DISTRIBUTION WIDTH 19.1 % (11.6-17.2); WHITE BLOOD COUNT 12.6 TH/MM3 (4.0-11.0)
[2017-01-10 04:41] LABS: BICARBONATE 33.7 MEQ/L (21.0-32.0); POTASSIUM 4.5 MEQ/L (3.5-5.1)
[2017-01-10] MEDS: INSULIN NovoLIN REGULAR SUPPLEMENTAL SCALE SQ SCH ×6 (04:47→20:00)
[2017-01-10] MEDS: METOCLOPRAMIDE HCL 10 MG/2 ML VIAL IV PUSH SCH ×3 (05:24→20:34)
[2017-01-10] MEDS: HEPARIN SODIUM - SQ 10,000 UNITS/ML VIAL SQ SCH ×3 (05:24→20:34)
[2017-01-10] MEDS: hydrALAZINE HCL 25 MG TAB PO SCH ×3 (05:24→20:32)
[2017-01-10] MEDS: ISOSORBIDE DINITRATE 10 MG TAB PO SCH ×3 (05:25→20:32)
[2017-01-10] MEDS: FREE WATER G-TUBE SCH ×5 (05:26→23:13)
--- NOTE | 2017-01-10 07:42 | HHI.CCPN ---
Subjective Remarks/Hospital Course 71-year-old male presents for evaluation of testicular swelling. Approximately 10 days ago he was started on Aldactone for his blood pressure which. He also noted that her sugars has been slightly elevated. Denies any fevers. He has been feeling generally weak as well. Denied abdominal pain nausea vomiting or diarrhea. He thought the scrotal swelling was from the Aldactone and came into the emergency department to be evaluated. 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 remains intubated overnight. off vasopressors. 12/30: Much more comfortable. Back to OR for washout today. Breathing without distress. STEFFEN improving. Patient has dilated cardiomyopathy with severe systolic heart failure and EF 25-30% by last ECHO 2013. May need low-dose inotrope during course of therapy. 12/30 1800 hrs: Seen after OR today. He has full neck veins and light wheezes with basilar crackles. His underlying LV dysfunction requires that we treat this aggressively with diuretics and subsequent electrolyte replacement. Will move back to [facility]. 12/31: Required rapid response for 2nd time in 12 hours. Will need intubation due to severe systolic heart failure and pulmonary edema. 01/01: Afebrile. Remains nothing by mouth for planned washout today. Decreased urine output noted. Hypertensive with sedation vacation. 01/02: Yesterday with washout and debridement without complication. Continues to be in A. fib intermittently rate controlled. Hemodynamically stable. One bowel movement. Will try spontaneous breathing trials today and attempt to extubate. If unsuccessful will initiate tube feeding. 01/03: Tmax 99.2. Episode of desaturation overnight recording FiO2 100%. Currently back to 50%. Chest x-ray essentially stable. Small left pleural effusion. Low lung volumes. Remains in a flutter rate controlled. Imminently bradycardic. 3 bowel movements on 01/02. Tolerating tube feeding. 01/04: FiO2 currently at 50%. We'll check CT chest. Possible need pleural effusions. Remains in a flutter rate control. Intermittently bradycardic. No bowel movement yesterday. Tube feeds currently off for possible extubation but tolerating previously. Afebrile 01/05: Remains on FiO2 of 50%. CT chest revealed small bilateral pleural effusions otherwise unremarkable. Noted is currently rate controlled. No bowel movement. Tube feeds at goal. Afebrile. Intermittently follows commands. Subjective: 01/06: FiO2 40%. Self extubated yesterday. Lasted about 20 Mr. for requiring intubation. Was on 100 percent nonrebreather. Saturations are 90%. During intubation, Ambu bag malfunctioned. Patient was quickly intubated and was arousable moving all 4 extremities prior to re-sedation. We'll attempt sedation vacation again today. 01/07: Remains ventilator dependent, failed extubation yesterday. Unable to wean today, weak. 01/08: Tolerating CPAP trials but unable to extubate. 01/09: Plan transfer to LTAC. 01/10: Continued improvement in renal function. Contraction alkalosis with diuresis. Will require LTAC. Objective Vital Signs Date Time Temp Pulse Resp B/P Pulse Ox O2 Delivery O2 Flow Rate FiO2 01/10/17 07:00 94 Mechanical Ventilator 40 01/10/17 06:00 70 01/10/17 04:00 99.3 17 147/71 Intake and Output 01/09/17 01/09/17 01/10/17 08:00 16:00 00:00 Intake Total 915 ml 938 ml 1695 ml Output Total 770 ml 1100 ml 1420 ml Balance 145 ml -162 ml 275 ml Result Diagram: 01/10/17 0400 01/10/17 0400 Imaging Last Impressions Chest X-Ray 01/06/17 0600 Signed Impressions: Service Date/Time: Friday, January 06, 2017 04:21 - CONCLUSION: Cardiomegaly with bilateral pleural effusions and bibasilar infiltrates. The radiographic pattern is most consistent with pulmonary edema. Sushil Abdi Jr., MD Abdomen X-Ray 01/05/17 0000 Signed Impressions: Service Date/Time: Thursday, January 05, 2017 07:23 - CONCLUSION: Nasogastric tube across the GE junction with minimal gaseous distention. Aba Dick MD FACR Chest CT 01/04/17 0000 Signed Impressions: Service Date/Time: Wednesday, January 04, 2017 12:03 - CONCLUSION: 1. Consolidative changes with small bilateral pleural effusions in both bases. 2. Extensive coronary artery calcifications. Aba Dick MD FACR Renal Ultrasound 01/01/17 0000 Signed Impressions: Service Date/Time: Sunday, January 01, 2017 09:12 - CONCLUSION: Normal examination. Sushil Abdi Jr., MD Scrotum Ultrasound 12/28/16 1246 Signed Impressions: Service Date/Time: Wednesday, December 28, 2016 14:05 - CONCLUSION: 1. Marked thickening of the scrotal wall, up to 2.4 cm on the right. 2. Small complex left hydrocele. 3. Small complex cysts right testicle. Positive testicular blood flow. Nael Scott MD Abdomen/Pelvis CT 12/28/16 1237 Signed Impressions: Service Date/Time: Wednesday, December 28, 2016 14:52 - CONCLUSION: 1. 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 2. Mild bilateral inguinal adenopathy and marked scrotal wall thickening. 3. Fat-containing 5.7 cm umbilical hernia. 4. Atherosclerotic aorta with some displaced intimal calcifications but without significant aneurysm. No bowel obstruction. Mild ileus. Nael Scott MD Objective Remarks GENERAL: 71-year-old male, orotracheally intubated SKIN: Warm and dry. HEAD: Normocephalic. EYES: Pupils are 3 mm bilaterally and reactive. NECK: trachea midline.Supple. Right subclavian clean dry and intact CARDIOVASCULAR: Bradycardia, Irreg. Intermittently paced. S1, S2 no S4. Without murmur RESPIRATORY: Diminished breath sounds due to body habitus. Few crackles appreciated in the bases bilaterally. GASTROINTESTINAL: Abdomen soft, non-tender, obese. Hypoactive bowel sounds appreciated.. Umbilical hernia is reducible MUSCULOSKELETAL: Currently with trace to 1+ bilateral lower extremity pitting edema. Foot pulse palpable. : Minimal scrotal edema. Packing which is clean and dry in the groin. NEURO: Moves all 4 extremities spontaneously. Withdraws to pain. Follows commands off sedation. 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 CV: Congestive heart failure/systolic ejection fraction 25% 2013 Limited echo EF 35-40% with akinesis apical myocardium History of CABG 4 Hypertension Dyslipidemia History of single-chamber defibrillator 08/19 due to positive EPS study Holding valsartan 320 mg by mouth daily for hypertension due to acute kidney injury Continue Lipitor 40 mg by mouth daily/home medication for dyslipidemia On Coreg 50 mg by mouth twice a day at home for hypertension - decreased to 25 twice a day yesterday with underlying bradycardia Continue hydralazine 25 3 times a day/Isordil 10 every 8 as adjuvant while creatinine elevated Milrinone was discontinued 01/01 due to dysrhythmias Echo 2013 - EF 25-30%. No regional wall motion abnormality. Left atrium dilated Limited echo 2016 reveals EF 35-40%. Akinesis apical myocardium. Left atrium mild dilatated. Mild MR. At home on Lasix 40 mg by mouth twice a day. 60 milligrams IV Lasix held due to worsening renal function Started Bumex 1 twice a day today attempt to diurese. Continue spironolactone 12.5 mg daily Given 2 doses of digoxin 0.25 mg IV 1. Recheck digoxin level in a.m. was less than 0.4 Dr. Rob cardiology seen for for underlying atrial flutter. Likely ischemic workup Resp: Acute hypoxemic respiratory failure Ongoing tobaccoism PRVC 16/60/0.85/5/50 Ventilator bundle Bronchodilator therapy every 4 hours and as needed Spontaneous breathing trials today. Adequate weaning parameters however FiO2 50 % GI: Gastroesophageal reflux disease 5.7 cm umbilical hernia Glucerna 1.5 goal 55 cc an hour Pepcid 10 mg twice a day for GI prophylaxis. On Prilosec 20 mg by mouth daily at home Colace/senna twice a day for bowel regimen Umbilical hernia seen on CT is reducible. : Becca's gangrene BPH Postop day #6 I&D 4 for Becca's gangrene/ necrotizing fasciitis posterior scrotum, perineum and right perirectal tissue Postop day #10 washout and debridement for his gangrene Postoperative day #8 washout and debridement of gangrene with placement of 4 [place] drains 12/28 revealed gas in his perineum/scrotum and the right gluteal cleft. Followed by urology/Dr. Ling Endo: Diabetes mellitus Gout Holding Tanzeum 50 mg subcutaneous weekly. Holding allopurinol 200 mg by mouth daily for gout Sliding scale insulin with Accu-Cheks every 4 hours to maintain euglycemia. 8 units of sliding scale insulin past 24 hours and started on Levemir 5 daily -> BID Renal: Acute kidney injury - baseline creatinine 1.[address] revealed no signs of hydronephrosis. Urine eosinophils negative. Renal ultrasound revealed no hydronephrosis Creatinine currently 1.5 and downward trending. No indications for hemodialysis at this point. Heme: Normocytic anemia Leukocytosis Daily CBC. Monitor trends Transfuse 2 units PRBCs during this hospital stay. No current indication for transfusion of blood proximally at this time. ID: Becca's gangrene Group A beta strep UTI Unasyn 1.5 IV every 6 hours Clindamycin 300 mg by mouth every 6 hours completed 01/02 Zyvox day #9 Pertinent cultures Sputum - 12/31 -no growth Abdomen abscess - 12/28 - Escherichia coli, E faecalis and coag negative staph Abdomen abscess - 12/28 - acid-fast bacilli/fungus negative Blood cultures 2 - 12/28 - no growth Urine culture - 12/28 -group A beta strep Infectious disease consulted. FEN: Hyper-magnesium Hypokalemia - resolved Hypernatremia Replace electrolytes as clinically indicated Added free water 200 every 6 MSK: PT/OT evaluate and treat Access - Right IJ CVL day #10 placed 12/31 - Left radial arterial line day #9 placed 12/31 Prophylaxis - GI - Pepcid - DVT - SCD/heparin subcutaneous Overall impression: Remains very weak, restricted by chronic poor cardiac function. Stable for LTAC transfer anytime for vent weaning. Will get abx recommendations from ID prior to transport. Change central lines. Roshan Carlos MD Jan 10, 2017 07:42
[2017-01-10] MEDS: CHLORHEXIDINE 0.12% (ORAL KIT) 15 ML CUP MT SCH ×2 (08:00→20:00)
[2017-01-10] MEDS: RESP: BUDESONIDE 0.5 MG/2 ML NEB NEB SCH ×2 (08:00→19:33)
[2017-01-10] MEDS: SENNOSIDES SYRUP 8.8 MG/5 ML CUP PO SCH ×2 (08:08→20:33)
[2017-01-10] MEDS: DOCUSATE SODIUM 100 MG/10 ML UDC G-TUBE SCH ×2 (08:08→20:33)
[2017-01-10] MEDS: SODIUM CHLORIDE 0.9% FLUSH 10 ML FLUSH SCH ×2 (08:08→20:33)
[2017-01-10] MEDS: ARTIFICIAL TEARS OPTH SOLN 15 ML BTL EACH EYE SCH ×3 (08:08→17:50)
[2017-01-10] MEDS: FAMOTIDINE 20 MG TAB PO SCH ×2 (08:09→20:32)
[2017-01-10] MEDS: SPIRONOLACTONE 25 MG TAB PO SCH (08:09)
[2017-01-10] MEDS: BUMETANIDE INJ 1 MG/4 ML VIAL IV PUSH SCH ×2 (08:09→17:51)
[2017-01-10] MEDS: methylPREDNISolone SOD SUCC 40 MG/1 ML VIAL IV SCH ×2 (08:09→20:33)
[2017-01-10] MEDS: CARVEDILOL 12.5 MG TAB PO SCH ×2 (08:10→20:31)
[2017-01-10] MEDS: INSULIN DETEMIR 100 UNITS/ML VIAL SQ SCH (08:10)
[2017-01-10] MEDS: ATORVASTATIN 40 MG TAB PO SCH (20:32)
[2017-01-11] VITALS (19 sets, daily range): BP systolic 131–158; BP diastolic 61–79; PULSE 76–93; RESP 16–26; TEMP 97.9–99.4; O2SAT 93–99
[2017-01-11] MEDS: PROPOFOL 1000 MG/100 ML INJ 100 ML IV SCH ×2 (00:52→05:21)
[2017-01-11] MEDS: AMPICILLIN-SULBACTAM INJ 1,500 MG in SODIUM CHLORIDE 0.9% INJ 100 ML IV SCH ×4 (01:43→20:38)
[2017-01-11] MEDS: INSULIN NovoLIN REGULAR SUPPLEMENTAL SCALE SQ SCH ×6 (03:45→21:29)
[2017-01-11] MEDS: CHLORHEXIDINE GLUCONATE 2 % 1 PACK (2 CLOTHS) TOP SCH ×2 (03:45→19:30)
[2017-01-11 03:48] LABS: AUTOMATED NEUTROPHIL # 11.4 TH/MM3 (1.8-7.7); BASOPHIL % 0.2 % (0.0-2.0); HEMATOCRIT 30.3 % (39.0-51.0); HEMO FLAGS DIFF FINAL; LYMPH % 5.9 % (9.0-44.0); LYMPHOCYTE # 0.8 TH/MM3 (1.0-4.8); MEAN CELL VOLUME 83.2 FL (80.0-100.0); MEAN CORPUSCULAR HEMOGLOBIN 27.6 PG (27.0-34.0); MEAN CORPUSCULAR HGB CONC 33.2 % (32.0-36.0); MONO % 7.2 % (0.0-8.0); NEUT % 86.7 % (16.0-70.0); PLATELET COUNT 122 TH/MM3 (150-450); RED BLOOD COUNT 3.65 MIL/MM3 (4.50-5.90); RED CELL DISTRIBUTION WIDTH 18.7 % (11.6-17.2); WHITE BLOOD COUNT 13.2 TH/MM3 (4.0-11.0)
[2017-01-11 03:57] LABS: BICARBONATE 32.7 MEQ/L (21.0-32.0); POTASSIUM 4.6 MEQ/L (3.5-5.1)
[2017-01-11] MEDS: ISOSORBIDE DINITRATE 10 MG TAB PO SCH ×3 (05:15→21:16)
[2017-01-11] MEDS: METOCLOPRAMIDE HCL 10 MG/2 ML VIAL IV PUSH SCH ×3 (05:15→21:16)
[2017-01-11] MEDS: FREE WATER G-TUBE SCH (05:16)
[2017-01-11] MEDS: hydrALAZINE HCL 25 MG TAB PO SCH ×3 (05:16→21:16)
[2017-01-11] MEDS: HEPARIN SODIUM - SQ 10,000 UNITS/ML VIAL SQ SCH ×3 (05:16→21:16)
--- NOTE | 2017-01-11 06:50 | HHI.CCPN ---
Subjective Remarks/Hospital Course 71-year-old male presents for evaluation of testicular swelling. Approximately 10 days ago he was started on Aldactone for his blood pressure which. He also noted that her sugars has been slightly elevated. Denies any fevers. He has been feeling generally weak as well. Denied abdominal pain nausea vomiting or diarrhea. He thought the scrotal swelling was from the Aldactone and came into the emergency department to be evaluated. 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 remains intubated overnight. off vasopressors. 12/30: Much more comfortable. Back to OR for washout today. Breathing without distress. STEFFEN improving. Patient has dilated cardiomyopathy with severe systolic heart failure and EF 25-30% by last ECHO 2013. May need low-dose inotrope during course of therapy. 12/30 1800 hrs: Seen after OR today. He has full neck veins and light wheezes with basilar crackles. His underlying LV dysfunction requires that we treat this aggressively with diuretics and subsequent electrolyte replacement. Will move back to [facility]. 12/31: Required rapid response for 2nd time in 12 hours. Will need intubation due to severe systolic heart failure and pulmonary edema. 01/01: Afebrile. Remains nothing by mouth for planned washout today. Decreased urine output noted. Hypertensive with sedation vacation. 01/02: Yesterday with washout and debridement without complication. Continues to be in A. fib intermittently rate controlled. Hemodynamically stable. One bowel movement. Will try spontaneous breathing trials today and attempt to extubate. If unsuccessful will initiate tube feeding. 01/03: Tmax 99.2. Episode of desaturation overnight recording FiO2 100%. Currently back to 50%. Chest x-ray essentially stable. Small left pleural effusion. Low lung volumes. Remains in a flutter rate controlled. Imminently bradycardic. 3 bowel movements on 01/02. Tolerating tube feeding. 01/04: FiO2 currently at 50%. We'll check CT chest. Possible need pleural effusions. Remains in a flutter rate control. Intermittently bradycardic. No bowel movement yesterday. Tube feeds currently off for possible extubation but tolerating previously. Afebrile 01/05: Remains on FiO2 of 50%. CT chest revealed small bilateral pleural effusions otherwise unremarkable. Noted is currently rate controlled. No bowel movement. Tube feeds at goal. Afebrile. Intermittently follows commands. Subjective: 01/06: FiO2 40%. Self extubated yesterday. Lasted about 20 Mr. for requiring intubation. Was on 100 percent nonrebreather. Saturations are 90%. During intubation, Ambu bag malfunctioned. Patient was quickly intubated and was arousable moving all 4 extremities prior to re-sedation. We'll attempt sedation vacation again today. 01/07: Remains ventilator dependent, failed extubation yesterday. Unable to wean today, weak. 01/08: Tolerating CPAP trials but unable to extubate. 01/09: Plan transfer to LTAC. 01/10: Continued improvement in renal function. Contraction alkalosis with diuresis. Will require LTAC. 01/11: Will need to get a fair amount of excess water off. Consider gtt. Objective Vital Signs Date Time Temp Pulse Resp B/P Pulse Ox O2 Delivery O2 Flow Rate FiO2 01/11/17 06:00 80 01/11/17 04:00 98.3 16 140/66 94 01/11/17 04:00 40 01/10/17 19:00 Mechanical Ventilator Intake and Output 01/10/17 01/10/17 01/11/17 08:00 16:00 00:00 Intake Total 895 ml 1212 ml 770 ml Output Total 550 ml 1500 ml 1150 ml Balance 345 ml -288 ml -380 ml Result Diagram: 01/11/17 0322 01/11/17 0322 Imaging Last Impressions Chest X-Ray 01/06/17 0600 Signed Impressions: Service Date/Time: Friday, January 06, 2017 04:21 - CONCLUSION: Cardiomegaly with bilateral pleural effusions and bibasilar infiltrates. The radiographic pattern is most consistent with pulmonary edema. Sushil Abdi Jr., MD Abdomen X-Ray 01/05/17 0000 Signed Impressions: Service Date/Time: Thursday, January 05, 2017 07:23 - CONCLUSION: Nasogastric tube across the GE junction with minimal gaseous distention. Aba Dick MD FACR Chest CT 01/04/17 0000 Signed Impressions: Service Date/Time: Wednesday, January 04, 2017 12:03 - CONCLUSION: 1. Consolidative changes with small bilateral pleural effusions in both bases. 2. Extensive coronary artery calcifications. Aba Dick MD FACR Renal Ultrasound 01/01/17 0000 Signed Impressions: Service Date/Time: Sunday, January 01, 2017 09:12 - CONCLUSION: Normal examination. Sushil Abdi Jr., MD Scrotum Ultrasound 12/28/16 1246 Signed Impressions: Service Date/Time: Wednesday, December 28, 2016 14:05 - CONCLUSION: 1. Marked thickening of the scrotal wall, up to 2.4 cm on the right. 2. Small complex left hydrocele. 3. Small complex cysts right testicle. Positive testicular blood flow. Nael Scott MD Abdomen/Pelvis CT 12/28/16 1237 Signed Impressions: Service Date/Time: Wednesday, December 28, 2016 14:52 - CONCLUSION: 1. 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 2. Mild bilateral inguinal adenopathy and marked scrotal wall thickening. 3. Fat-containing 5.7 cm umbilical hernia. 4. Atherosclerotic aorta with some displaced intimal calcifications but without significant aneurysm. No bowel obstruction. Mild ileus. Nael Scott MD Objective Remarks GENERAL: 71-year-old male, orotracheally intubated SKIN: Warm and dry. HEAD: Normocephalic. EYES: Pupils are 2 mm bilaterally and reactive. NECK: trachea midline.Supple. Right subclavian clean dry and intact but 10 days old. CARDIOVASCULAR: Bradycardia, Irreg. Intermittently paced. S1, S2 no S4. Without murmur RESPIRATORY: Diminished breath sounds due to body habitus. No wheezes. GASTROINTESTINAL: Abdomen soft, non-tender, obese. Hypoactive bowel sounds appreciated. Umbilical hernia remains reducible MUSCULOSKELETAL: Currently with trace to 2+ bilateral lower extremity pitting edema. Foot pulses palpable. : Minimal scrotal edema. Packing which is clean and dry in the groin. NEURO: Moves all 4 extremities spontaneously. Withdraws to pain. Follows commands off sedation. 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 CV: Congestive heart failure/systolic ejection fraction 25% 2013 Limited echo EF 35-40% with akinesis apical myocardium History of CABG 4 Hypertension Dyslipidemia History of single-chamber defibrillator 08/19 due to positive EPS study Holding valsartan 320 mg by mouth daily for hypertension due to acute kidney injury Continue Lipitor 40 mg by mouth daily/home medication for dyslipidemia On Coreg 50 mg by mouth twice a day at home for hypertension - decreased to 25 twice a day yesterday with underlying bradycardia Continue hydralazine 25 3 times a day/Isordil 10 every 8 as adjuvant while creatinine elevated Milrinone was discontinued 01/01 due to dysrhythmias Echo 2013 - EF 25-30%. No regional wall motion abnormality. Left atrium dilated Limited echo 2016 reveals EF 35-40%. Akinesis apical myocardium. Left atrium mild dilatated. Mild MR. At home on Lasix 40 mg by mouth twice a day. 60 milligrams IV Lasix held due to worsening renal function Started Bumex 1 twice a day today attempt to diurese. Continue spironolactone 12.5 mg daily Given 2 doses of digoxin 0.25 mg IV 1. Recheck digoxin level in a.m. was less than 0.4 Dr. Rob cardiology seen for for underlying atrial flutter. Likely ischemic workup Resp: Acute hypoxemic respiratory failure Ongoing tobaccoism PRVC 14/600/0.85/5/50 Ventilator bundle Bronchodilator therapy every 4 hours and as needed Spontaneous breathing trials today. Adequate weaning parameters however FiO2 50 % GI: Gastroesophageal reflux disease 5.7 cm umbilical hernia Glucerna 1.5 goal 55 cc an hour Pepcid 10 mg twice a day for GI prophylaxis. On Prilosec 20 mg by mouth daily at home Colace/senna twice a day for bowel regimen Umbilical hernia seen on CT is reducible. increase levemir to bid : Becca's gangrene BPH Postop day #8 I&D 4 for Becca's gangrene/ necrotizing fasciitis posterior scrotum, perineum and right perirectal tissue Postop day #12 washout and debridement for his gangrene Postoperative day #10 washout and debridement. 12/28 revealed gas in his perineum/scrotum and the right gluteal cleft. Followed by urology/Dr. Sushil Stein: Diabetes mellitus Gout Holding Tanzeum 50 mg subcutaneous weekly. Holding allopurinol 200 mg by mouth daily for gout Sliding scale insulin with Accu-Cheks every 4 hours to maintain euglycemia. 8 units of sliding scale insulin past 24 hours and started on Levemir 5 daily -> BID Renal: Acute kidney injury - baseline creatinine 1.[address] revealed no signs of hydronephrosis. Urine eosinophils negative. Renal ultrasound revealed no hydronephrosis Creatinine currently 1.5 and downward trending. No indications for hemodialysis at this point. Heme: Normocytic anemia Leukocytosis Daily CBC. Monitor trends Transfuse 2 units PRBCs during this hospital stay. No current indication for transfusion of blood proximally at this time. ID: Becca's gangrene Group A beta strep UTI Unasyn 1.5 IV every 6 hours Clindamycin 300 mg by mouth every 6 hours completed 01/02 Zyvox day Pertinent cultures Sputum - 12/31 -no growth Abdomen abscess - 12/28 - Escherichia coli, E faecalis and coag negative staph Abdomen abscess - 12/28 - acid-fast bacilli/fungus negative Blood cultures 2 - 12/28 - no growth Urine culture - 12/28 -group A beta strep Infectious disease consulted. FEN: Hyper-magnesium Hypokalemia - resolved Hypernatremia Replace electrolytes as clinically indicated Added free water 200 every 6 MSK: PT/OT evaluate and treat Access - Right IJ CVL day #10 placed 12/31 -> - Left radial arterial line day #10 placed 12/31 Prophylaxis - GI - Pepcid - DVT - SCD/heparin subcutaneous Overall impression: Remains very weak, restricted by chronic poor cardiac function. Stable for LTAC transfer anytime for vent weaning. Will get abx recommendations from ID prior to transport. Change central lines. Increase diuresis. Roshan Carlos MD Jan 11, 2017 06:50
[2017-01-11] MEDS: RESP: BUDESONIDE 0.5 MG/2 ML NEB NEB SCH ×2 (07:21→19:24)
[2017-01-11] MEDS: CHLORHEXIDINE 0.12% (ORAL KIT) 15 ML CUP MT SCH ×2 (07:33→20:00)
[2017-01-11] MEDS: SENNOSIDES SYRUP 8.8 MG/5 ML CUP PO SCH ×2 (07:52→20:30)
[2017-01-11] MEDS: DOCUSATE SODIUM 100 MG/10 ML UDC G-TUBE SCH ×2 (07:52→20:30)
[2017-01-11] MEDS: SODIUM CHLORIDE 0.9% FLUSH 10 ML FLUSH SCH ×2 (07:52→20:31)
[2017-01-11] MEDS: FAMOTIDINE 20 MG TAB PO SCH ×2 (07:53→20:31)
[2017-01-11] MEDS: SPIRONOLACTONE 25 MG TAB PO SCH (07:53)
[2017-01-11] MEDS: INSULIN DETEMIR 100 UNITS/ML VIAL SQ SCH ×2 (07:53→20:30)
[2017-01-11] MEDS: CARVEDILOL 12.5 MG TAB PO SCH ×2 (07:53→20:30)
[2017-01-11] MEDS: ARTIFICIAL TEARS OPTH SOLN 15 ML BTL EACH EYE SCH ×3 (07:54→16:32)
[2017-01-11] MEDS: BUMETANIDE INJ 100 ML IV SCH (07:56)
[2017-01-11] MEDS: hydrALAZINE HCL 20 MG/ML VIAL IV PUSH PRN (10:05)
[2017-01-11] MEDS ORDERED: MIDAZOLAM HCL 5 MG/ML VIAL (1 ML) IV ONE (16:00)
--- NOTE | 2017-01-11 16:08 | PD.PROCEDR ---
Procedure Note Procedure DX: Poor venous access OP: Insertion Central Venous Line Procedure: Left neck prepped and draped. Left internal jugular vein cannulated with ultrasound guidance and wire easily advanced. Catheter passed over wire to 18 cm. Lumens aspirated and flushed. Dressing applied. CXR ordered , will review. Roshan Carlos MD Jan 11, 2017 16:08
--- NOTE | 2017-01-11 17:00 | RADRPT ---
EXAM DATE/TIME: 01/11/2017 16:27 [place] COMPARISON: CHEST SINGLE AP, January 07, 2017, 3:11. INDICATIONS : Post left sided central line placement. MEDICAL HISTORY : Hypertension. Congestive heart failure. Myocardial infarction. CAD SURGICAL HISTORY : Pacemaker. CABG. Coronary artery stent. ENCOUNTER: Subsequent ACUITY: 2 weeks PAIN SCORE: Non-responsive. LOCATION: Bilateral chest FINDINGS: The support devices remain in place. There is some mild bibasilar infiltrates which were about the sa me. There is no pneumothorax. Heart size is stable. No significant changes compared to the prior stud y. CONCLUSION: No significant interval change. Rivas Keys MD on January 11, 2017 at 16:58 Board Certified Radiologist. This report was verified electronically.
[2017-01-11] MEDS: RESP: ALBUTEROL 2.5 MG/IPRATROPIUM 0.5 MG NEB (PRN) INH (19:32)
[2017-01-11] MEDS: ATORVASTATIN 40 MG TAB PO SCH (20:31)
[2017-01-12] VITALS (19 sets, daily range): BP systolic 108–164; BP diastolic 53–71; PULSE 70–92; RESP 16–23; TEMP 99.2–100.9; O2SAT 89–97
[2017-01-12] MEDS: AMPICILLIN-SULBACTAM INJ 1,500 MG in SODIUM CHLORIDE 0.9% INJ 100 ML IV SCH ×4 (04:08→20:06)
[2017-01-12] MEDS: INSULIN NovoLIN REGULAR SUPPLEMENTAL SCALE SQ SCH ×6 (04:40→19:58)
[2017-01-12 05:15] LABS: HEMATOCRIT 29.2 % (39.0-51.0); MEAN CELL VOLUME 83.7 FL (80.0-100.0); MEAN CORPUSCULAR HEMOGLOBIN 27.3 PG (27.0-34.0); MEAN CORPUSCULAR HGB CONC 32.7 % (32.0-36.0); PLATELET COUNT 104 TH/MM3 (150-450); RED BLOOD COUNT 3.49 MIL/MM3 (4.50-5.90); RED CELL DISTRIBUTION WIDTH 19.1 % (11.6-17.2); REVIEW FLAG FINAL; WHITE BLOOD COUNT 10.4 TH/MM3 (4.0-11.0)
[2017-01-12 05:22] LABS: BICARBONATE 38.5 MEQ/L (21.0-32.0); MAGNESIUM 1.9 MG/DL (1.5-2.5); POTASSIUM 3.7 MEQ/L (3.5-5.1)
[2017-01-12] MEDS: METOCLOPRAMIDE HCL 10 MG/2 ML VIAL IV PUSH SCH ×3 (05:35→22:06)
[2017-01-12] MEDS: hydrALAZINE HCL 25 MG TAB PO SCH ×3 (05:35→22:06)
[2017-01-12] MEDS: HEPARIN SODIUM - SQ 10,000 UNITS/ML VIAL SQ SCH ×3 (05:36→22:06)
[2017-01-12] MEDS: ISOSORBIDE DINITRATE 10 MG TAB PO SCH ×3 (05:36→22:06)
[2017-01-12] MEDS: PROPOFOL 1000 MG/100 ML INJ 100 ML IV SCH ×4 (06:02→22:06)
[2017-01-12] MEDS: RESP: BUDESONIDE 0.5 MG/2 ML NEB NEB SCH ×2 (07:18→19:22)
[2017-01-12] MEDS: CHLORHEXIDINE 0.12% (ORAL KIT) 15 ML CUP MT SCH ×2 (08:00→19:59)
[2017-01-12] MEDS ORDERED: POTASSIUM CHLOR 20 MEQ PREMIX 100 ML IV PRN (09:00)
[2017-01-12] MEDS ORDERED: POTASSIUM PHOSPHATE MONOBASIC 500 MG TAB PO/TUBE PRN (09:00)
[2017-01-12] MEDS ORDERED: POTASSIUM PHOSPHATE INJ 30 MMOL in SODIUM CHLOR 0.9% 250 ML INJ 250 ML IV PRN (09:00)
[2017-01-12] MEDS ORDERED: SODIUM PHOSPHATE INJ 30 MMOL in SODIUM CHLOR 0.9% 250 ML INJ 240 ML IV PRN (09:00)
[2017-01-12] MEDS: ARTIFICIAL TEARS OPTH SOLN 15 ML BTL EACH EYE SCH ×3 (09:00→17:43)
[2017-01-12] MEDS ORDERED: MAGNESIUM SULFATE INJ 2 GM in SODIUM CHLORIDE 0.9% INJ 96 ML IV PRN (09:00)
[2017-01-12] MEDS ORDERED: POTASSIUM PHOSPHATE MONOBASIC 500 MG TAB PO PRN (09:00)
[2017-01-12] MEDS ORDERED: MAGNESIUM OXIDE 400 MG TAB PO PRN (09:00)
[2017-01-12] MEDS ORDERED: POTASSIUM CHLOR 40 MEQ PREMIX 100 ML IV PRN (09:00)
[2017-01-12] MEDS: SODIUM CHLORIDE 0.9% FLUSH 10 ML FLUSH SCH ×2 (09:00→20:00)
[2017-01-12] MEDS ORDERED: MAGNESIUM SULFATE INJ 4 GM in SODIUM CHLORIDE 0.9% INJ 92 ML IV PRN (09:00)
--- NOTE | 2017-01-12 09:03 | HHI.CCPN ---
Subjective Remarks/Hospital Course 71-year-old male presents for evaluation of testicular swelling. Approximately 10 days ago he was started on Aldactone for his blood pressure which. He also noted that her sugars has been slightly elevated. Denies any fevers. He has been feeling generally weak as well. Denied abdominal pain nausea vomiting or diarrhea. He thought the scrotal swelling was from the Aldactone and came into the emergency department to be evaluated. 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 remains intubated overnight. off vasopressors. 12/30: Much more comfortable. Back to OR for washout today. Breathing without distress. STEFFEN improving. Patient has dilated cardiomyopathy with severe systolic heart failure and EF 25-30% by last ECHO 2013. May need low-dose inotrope during course of therapy. 12/30 1800 hrs: Seen after OR today. He has full neck veins and light wheezes with basilar crackles. His underlying LV dysfunction requires that we treat this aggressively with diuretics and subsequent electrolyte replacement. Will move back to [facility]. 12/31: Required rapid response for 2nd time in 12 hours. Will need intubation due to severe systolic heart failure and pulmonary edema. 01/01: Afebrile. Remains nothing by mouth for planned washout today. Decreased urine output noted. Hypertensive with sedation vacation. 01/02: Yesterday with washout and debridement without complication. Continues to be in A. fib intermittently rate controlled. Hemodynamically stable. One bowel movement. Will try spontaneous breathing trials today and attempt to extubate. If unsuccessful will initiate tube feeding. 01/03: Tmax 99.2. Episode of desaturation overnight recording FiO2 100%. Currently back to 50%. Chest x-ray essentially stable. Small left pleural effusion. Low lung volumes. Remains in a flutter rate controlled. Imminently bradycardic. 3 bowel movements on 01/02. Tolerating tube feeding. 01/04: FiO2 currently at 50%. We'll check CT chest. Possible need pleural effusions. Remains in a flutter rate control. Intermittently bradycardic. No bowel movement yesterday. Tube feeds currently off for possible extubation but tolerating previously. Afebrile 01/05: Remains on FiO2 of 50%. CT chest revealed small bilateral pleural effusions otherwise unremarkable. Noted is currently rate controlled. No bowel movement. Tube feeds at goal. Afebrile. Intermittently follows commands. Subjective: 01/06: FiO2 40%. Self extubated yesterday. Lasted about 20 Mr. for requiring intubation. Was on 100 percent nonrebreather. Saturations are 90%. During intubation, Ambu bag malfunctioned. Patient was quickly intubated and was arousable moving all 4 extremities prior to re-sedation. We'll attempt sedation vacation again today. 01/07: Remains ventilator dependent, failed extubation yesterday. Unable to wean today, weak. 01/08: Tolerating CPAP trials but unable to extubate. 01/09: Plan transfer to LTAC. 01/10: Continued improvement in renal function. Contraction alkalosis with diuresis. Will require LTAC. 01/11: Will need to get a fair amount of excess water off. Consider gtt. 01/11: Great response to bumex gtt. Objective Vital Signs Date Time Temp Pulse Resp B/P Pulse Ox O2 Delivery O2 Flow Rate FiO2 01/12/17 08:59 40 01/12/17 07:18 95 01/12/17 06:00 90 01/12/17 04:00 99.2 16 129/60 01/11/17 19:00 Mechanical Ventilator Intake and Output 01/11/17 01/11/17 01/12/17 08:00 16:00 00:00 Intake Total 1004 ml 935 ml 1097 ml Output Total 975 ml 2095 ml 2525 ml Balance 29 ml -1160 ml -1428 ml Result Diagram: 01/12/17 0430 01/12/17 0430 Imaging Last Impressions Chest X-Ray 01/06/17 0600 Signed Impressions: Service Date/Time: Friday, January 06, 2017 04:21 - CONCLUSION: Cardiomegaly with bilateral pleural effusions and bibasilar infiltrates. The radiographic pattern is most consistent with pulmonary edema. Sushil Abdi Jr., MD Abdomen X-Ray 01/05/17 0000 Signed Impressions: Service Date/Time: Thursday, January 05, 2017 07:23 - CONCLUSION: Nasogastric tube across the GE junction with minimal gaseous distention. Aba Dick MD FACR Chest CT 01/04/17 0000 Signed Impressions: Service Date/Time: Wednesday, January 04, 2017 12:03 - CONCLUSION: 1. Consolidative changes with small bilateral pleural effusions in both bases. 2. Extensive coronary artery calcifications. Aba Dick MD FACR Renal Ultrasound 01/01/17 0000 Signed Impressions: Service Date/Time: Sunday, January 01, 2017 09:12 - CONCLUSION: Normal examination. Sushil Abdi Jr., MD Scrotum Ultrasound 12/28/16 1246 Signed Impressions: Service Date/Time: Wednesday, December 28, 2016 14:05 - CONCLUSION: 1. Marked thickening of the scrotal wall, up to 2.4 cm on the right. 2. Small complex left hydrocele. 3. Small complex cysts right testicle. Positive testicular blood flow. Nael Scott MD Abdomen/Pelvis CT 12/28/16 1237 Signed Impressions: Service Date/Time: Wednesday, December 28, 2016 14:52 - CONCLUSION: 1. 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 2. Mild bilateral inguinal adenopathy and marked scrotal wall thickening. 3. Fat-containing 5.7 cm umbilical hernia. 4. Atherosclerotic aorta with some displaced intimal calcifications but without significant aneurysm. No bowel obstruction. Mild ileus. Nael Scott MD Objective Remarks GENERAL: 71-year-old male, orotracheally intubated SKIN: Warm and dry. HEAD: Normocephalic. EYES: Pupils are 2 mm bilaterally and reactive. NECK: trachea midline.Supple. Right subclavian clean dry and intact but 10 days old. CARDIOVASCULAR: Bradycardia, Irreg. Intermittently paced. S1, S2 no S4. Without murmur RESPIRATORY: Diminished breath sounds due to body habitus. No wheezes. GASTROINTESTINAL: Abdomen soft, non-tender, obese. Hypoactive bowel sounds appreciated. Umbilical hernia remains reducible MUSCULOSKELETAL: Currently with trace to 2+ bilateral lower extremity pitting edema. Foot pulses palpable. : Minimal scrotal edema. Packing which is clean and dry in the groin. NEURO: Moves all 4 extremities spontaneously. Withdraws to pain. Follows commands off sedation. 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 CV: Congestive heart failure/systolic ejection fraction 25% 2013 Limited echo EF 35-40% with akinesis apical myocardium History of CABG 4 Hypertension Dyslipidemia History of single-chamber defibrillator 08/19 due to positive EPS study Holding valsartan 320 mg by mouth daily for hypertension due to acute kidney injury Continue Lipitor 40 mg by mouth daily/home medication for dyslipidemia On Coreg 50 mg by mouth twice a day at home for hypertension - decreased to 25 twice a day yesterday with underlying bradycardia Continue hydralazine 25 3 times a day/Isordil 10 every 8 as adjuvant while creatinine elevated Milrinone was discontinued 01/01 due to dysrhythmias Echo 2013 - EF 25-30%. No regional wall motion abnormality. Left atrium dilated Limited echo 2016 reveals EF 35-40%. Akinesis apical myocardium. Left atrium mild dilatated. Mild MR. At home on Lasix 40 mg by mouth twice a day. 60 milligrams IV Lasix held due to worsening renal function Started Bumex 1 twice a day today attempt to diurese. Continue spironolactone 12.5 mg daily Given 2 doses of digoxin 0.25 mg IV 1. Recheck digoxin level in a.m. was less than 0.4 Dr. Rob cardiology seen for for underlying atrial flutter. Likely ischemic workup Resp: Acute hypoxemic respiratory failure Ongoing tobaccoism [facility] 14/600/0.85/5/50 Ventilator bundle Bronchodilator therapy every 4 hours and as needed Spontaneous breathing trials today. Adequate weaning parameters however FiO2 50 % GI: Gastroesophageal reflux disease 5.7 cm umbilical hernia Glucerna 1.5 goal 55 cc an hour Pepcid 10 mg twice a day for GI prophylaxis. On Prilosec 20 mg by mouth daily at home Colace/senna twice a day for bowel regimen Umbilical hernia seen on CT is reducible. increase levemir to bid : Becca's gangrene BPH Postop for Becca's gangrene/ necrotizing fasciitis posterior scrotum, perineum and right perirectal tissue Postop washout and debridement for his gangrene Postoperative washout and debridement. 12/28 revealed gas in his perineum/scrotum and the right gluteal cleft. Followed by urology/Dr. Ling Endo: Diabetes mellitus Gout Holding Tanzeum 50 mg subcutaneous weekly. Holding allopurinol 200 mg by mouth daily for gout Sliding scale insulin with Accu-Cheks every 6 hours to maintain euglycemia. 8 units of sliding scale insulin past 24 hours and started on Levemir 5 daily -> BID Renal: Acute kidney injury - baseline creatinine 1.[address] revealed no signs of hydronephrosis. Urine eosinophils negative. Renal ultrasound revealed no hydronephrosis Creatinine currently 1.5 and downward trending. No indications for hemodialysis at this point. Heme: Normocytic anemia Leukocytosis Daily CBC. Monitor trends Transfuse 2 units PRBCs during this hospital stay. No current indication for transfusion of blood proximally at this time. ID: Becca's gangrene Group A beta strep UTI Unasyn 1.5 IV every 6 hours Clindamycin 300 mg by mouth every 6 hours completed 01/02 Zyvox day Pertinent cultures Sputum - 12/31 -no growth Abdomen abscess - 12/28 - Escherichia coli, E faecalis and coag negative staph Abdomen abscess - 12/28 - acid-fast bacilli/fungus negative Blood cultures 2 - 12/28 - no growth Urine culture - 12/28 -group A beta strep Infectious disease consulted. FEN: Hyper-magnesium Hypokalemia - resolved Hypernatremia Replace electrolytes as clinically indicated MSK: PT/OT evaluate and treat Access - Right IJ CVL day #10 placed 12/31 -> d/c - Left radial arterial line day #10 placed 12/31 -Left IJ CVL 01/11 #2 Prophylaxis - GI - Pepcid - DVT - SCD/heparin subcutaneous Overall impression: Remains very weak, restricted by chronic poor cardiac function. Stable for LTAC transfer anytime for vent weaning. Will get abx recommendations from ID prior to transport. Central lines changed. Roshan Carlos MD Jan 12, 2017 09:03
[2017-01-12] MEDS: DOCUSATE SODIUM 100 MG/10 ML UDC G-TUBE SCH ×2 (10:02→19:59)
[2017-01-12] MEDS: CARVEDILOL 12.5 MG TAB PO SCH ×2 (10:02→19:59)
[2017-01-12] MEDS: FAMOTIDINE 20 MG TAB PO SCH ×2 (10:02→19:59)
[2017-01-12] MEDS: SENNOSIDES SYRUP 8.8 MG/5 ML CUP PO SCH ×2 (10:02→19:59)
[2017-01-12] MEDS: SPIRONOLACTONE 25 MG TAB PO SCH (10:02)
[2017-01-12] MEDS: INSULIN DETEMIR 100 UNITS/ML VIAL SQ SCH ×2 (10:03→19:58)
[2017-01-12] MEDS: BUMETANIDE INJ 100 ML IV SCH (17:51)
[2017-01-12 18:25] LABS: BICARBONATE 40.2 MEQ/L (21.0-32.0); MAGNESIUM 1.9 MG/DL (1.5-2.5); POTASSIUM 3.6 MEQ/L (3.5-5.1)
[2017-01-12] MEDS: RESP: ALBUTEROL 2.5 MG/IPRATROPIUM 0.5 MG NEB (PRN) INH (19:22)
[2017-01-12] MEDS: ATORVASTATIN 40 MG TAB PO SCH (19:59)
--- NOTE | 2017-01-12 23:00 | RADRPT ---
EXAM DATE/TIME: 01/12/2017 22:26 [place] COMPARISON: CHEST SINGLE AP, January 11, 2017, 16:27. INDICATIONS : Acute respiratory failure. MEDICAL HISTORY : Hypertension. Congestive heart failure. Myocardial infarction. CAD SURGICAL HISTORY : Pacemaker. Coronary artery stent. Coronary artery stent. ENCOUNTER: Subsequent ACUITY: 2 weeks PAIN SCORE: Non-responsive. LOCATION: Bilateral chest FINDINGS: A single view of the chest demonstrates endotracheal tube tip in satisfactory position. NG enters sto mach. Left central line in superior vena cava. Mild basilar airspace disease. No pneumothorax. Pacer lead unchanged. CONCLUSION: 1. Mild basilar airspace disease. Findings similar to January 11. Nael Scott MD on January 12, 2017 at 22:57 Board Certified Radiologist. This report was verified electronically.
[2017-01-12 23:12] LABS: BLOOD GAS BASE EXCESS 11.4 mmol/L (-2-2); BLOOD GAS CARBOXYHEMOGLOBIN 1.2 % (0-4); BLOOD GAS HCO3 35 mmol/L (22-26); BLOOD GAS METHEMOGLOBIN 0.7 % (0-2); BLOOD GAS O2 HGB SATURATION 97 % (90-100); BLOOD GAS OXYGEN CONTENT 12.5 Vol % (12.0-20.0); BLOOD GAS PCO2 40 mmHg (38-42); BLOOD GAS PO2 157 mmHg (61-120); BLOOD GAS TOTAL HGB 8.9 G/DL (12.0-16.0); TEMP CORR TO 98.6
[2017-01-12 23:13] LABS: CRITICAL VALUE YES; DRAW SITE LT RADIAL; FIO2 80 %; NUMBER OF ARTERIAL PUNCTURES 2; OXYGEN DEVICE VENTILATOR; VENT SETTINGS 16 700 10 PEEP
[2017-01-12 23:14] LABS: STAT NO; ULNAR PULSE PRESENT
[2017-01-13] VITALS (18 sets, daily range): BP systolic 116–185; BP diastolic 57–91; PULSE 65–107; RESP 12–23; TEMP 98–99.6; O2SAT 92–100
[2017-01-13] MEDS: AMPICILLIN-SULBACTAM INJ 1,500 MG in SODIUM CHLORIDE 0.9% INJ 100 ML IV SCH ×4 (02:36→21:00)
[2017-01-13] MEDS: PROPOFOL 1000 MG/100 ML INJ 100 ML IV SCH ×2 (03:14→23:29)
[2017-01-13] MEDS: BUMETANIDE INJ 100 ML IV SCH (03:14)
[2017-01-13] MEDS: INSULIN NovoLIN REGULAR SUPPLEMENTAL SCALE SQ SCH ×5 (04:00→20:00)
[2017-01-13] MEDS: CHLORHEXIDINE GLUCONATE 2 % 1 PACK (2 CLOTHS) TOP SCH (04:00)
[2017-01-13] MEDS: ISOSORBIDE DINITRATE 10 MG TAB PO SCH ×3 (05:12→22:13)
[2017-01-13] MEDS: METOCLOPRAMIDE HCL 10 MG/2 ML VIAL IV PUSH SCH ×3 (05:12→22:12)
[2017-01-13] MEDS: hydrALAZINE HCL 25 MG TAB PO SCH ×3 (05:12→22:13)
[2017-01-13] MEDS: HEPARIN SODIUM - SQ 10,000 UNITS/ML VIAL SQ SCH ×3 (05:12→22:13)
[2017-01-13] MEDS: RESP: BUDESONIDE 0.5 MG/2 ML NEB NEB SCH ×2 (07:43→19:46)
[2017-01-13] MEDS: CARVEDILOL 12.5 MG TAB PO SCH ×2 (08:39→21:19)
[2017-01-13] MEDS: SENNOSIDES SYRUP 8.8 MG/5 ML CUP PO SCH ×2 (08:39→20:59)
[2017-01-13] MEDS: SPIRONOLACTONE 25 MG TAB PO SCH (08:39)
[2017-01-13] MEDS: DOCUSATE SODIUM 100 MG/10 ML UDC G-TUBE SCH ×2 (08:39→20:59)
[2017-01-13] MEDS: FAMOTIDINE 20 MG TAB PO SCH ×2 (08:39→21:00)
[2017-01-13] MEDS: SODIUM CHLORIDE 0.9% FLUSH 10 ML FLUSH SCH ×2 (08:40→21:17)
[2017-01-13] MEDS: INSULIN DETEMIR 100 UNITS/ML VIAL SQ SCH ×2 (08:40→22:14)
[2017-01-13] MEDS: ARTIFICIAL TEARS OPTH SOLN 15 ML BTL EACH EYE SCH ×3 (08:41→17:48)
[2017-01-13] MEDS: CHLORHEXIDINE 0.12% (ORAL KIT) 15 ML CUP MT SCH ×2 (08:41→21:14)
--- NOTE | 2017-01-13 08:51 | HHI.CCPN ---
Subjective Remarks/Hospital Course 71-year-old male presents for evaluation of testicular swelling. Approximately 10 days ago he was started on Aldactone for his blood pressure which. He also noted that her sugars has been slightly elevated. Denies any fevers. He has been feeling generally weak as well. Denied abdominal pain nausea vomiting or diarrhea. He thought the scrotal swelling was from the Aldactone and came into the emergency department to be evaluated. 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 remains intubated overnight. off vasopressors. 12/30: Much more comfortable. Back to OR for washout today. Breathing without distress. STEFFEN improving. Patient has dilated cardiomyopathy with severe systolic heart failure and EF 25-30% by last ECHO 2013. May need low-dose inotrope during course of therapy. 12/30 1800 hrs: Seen after OR today. He has full neck veins and light wheezes with basilar crackles. His underlying LV dysfunction requires that we treat this aggressively with diuretics and subsequent electrolyte replacement. Will move back to [facility]. 12/31: Required rapid response for 2nd time in 12 hours. Will need intubation due to severe systolic heart failure and pulmonary edema. 01/01: Afebrile. Remains nothing by mouth for planned washout today. Decreased urine output noted. Hypertensive with sedation vacation. 01/02: Yesterday with washout and debridement without complication. Continues to be in A. fib intermittently rate controlled. Hemodynamically stable. One bowel movement. Will try spontaneous breathing trials today and attempt to extubate. If unsuccessful will initiate tube feeding. 01/03: Tmax 99.2. Episode of desaturation overnight recording FiO2 100%. Currently back to 50%. Chest x-ray essentially stable. Small left pleural effusion. Low lung volumes. Remains in a flutter rate controlled. Imminently bradycardic. 3 bowel movements on 01/02. Tolerating tube feeding. 01/04: FiO2 currently at 50%. We'll check CT chest. Possible need pleural effusions. Remains in a flutter rate control. Intermittently bradycardic. No bowel movement yesterday. Tube feeds currently off for possible extubation but tolerating previously. Afebrile 01/05: Remains on FiO2 of 50%. CT chest revealed small bilateral pleural effusions otherwise unremarkable. Noted is currently rate controlled. No bowel movement. Tube feeds at goal. Afebrile. Intermittently follows commands. Subjective: 01/06: FiO2 40%. Self extubated yesterday. Lasted about 20 Mr. for requiring intubation. Was on 100 percent nonrebreather. Saturations are 90%. During intubation, Ambu bag malfunctioned. Patient was quickly intubated and was arousable moving all 4 extremities prior to re-sedation. We'll attempt sedation vacation again today. 01/07: Remains ventilator dependent, failed extubation yesterday. Unable to wean today, weak. 01/08: Tolerating CPAP trials but unable to extubate. 01/09: Plan transfer to LTAC. 01/10: Continued improvement in renal function. Contraction alkalosis with diuresis. Will require LTAC. 01/11: Will need to get a fair amount of excess water off. Consider gtt. 01/11: Great response to bumex gtt. 01/13: Continue diuresis. Replete electrolytes. Reduce vent rate. Objective Vital Signs Date Time Temp Pulse Resp B/P Pulse Ox O2 Delivery O2 Flow Rate FiO2 01/13/17 07:47 100 40 01/13/17 06:00 90 01/13/17 04:00 99.6 13 155/67 01/12/17 19:00 Mechanical Ventilator Intake and Output 01/12/17 01/12/17 01/13/17 08:00 16:00 00:00 Intake Total 781 ml 671 ml 890 ml Output Total 2200 ml 2250 ml 1450 ml Balance -1419 ml -1579 ml -560 ml Result Diagram: 01/12/17 0430 01/12/17 1712 Other Results Laboratory Tests Test 01/12/17 23:00 Blood Gas Puncture Site LT RADIAL Blood Gas Patient Temperature 98.6 Blood Gas HCO3 35 mmol/L (22-26) Blood Gas Base Excess 11.4 mmol/L (-2-2) Blood Gas Oxygen Saturation 97 % (90-100) Arterial Blood pH 7.55 (7.380-7.420) Arterial Blood Partial 40 mmHg (38-42) Pressure CO2 Arterial Blood Partial 157 mmHg Pressure O2 (61-120) Arterial Blood Oxygen Content 12.5 Vol % (12.0-20.0) Arterial Blood 1.2 % (0-4) Carboxyhemoglobin Arterial Blood Methemoglobin 0.7 % (0-2) Blood Gas Hemoglobin 8.9 G/DL (12.0-16.0) Oxygen Delivery Device VENTILATOR Blood Gas Ventilator Setting 16 700 10 PEEP Blood Gas Inspired Oxygen 80 % Imaging Last Impressions Chest X-Ray 01/06/17 0600 Signed Impressions: Service Date/Time: Friday, January 06, 2017 04:21 - CONCLUSION: Cardiomegaly with bilateral pleural effusions and bibasilar infiltrates. The radiographic pattern is most consistent with pulmonary edema. Sushil Abdi Jr., MD Abdomen X-Ray 01/05/17 0000 Signed Impressions: Service Date/Time: Thursday, January 05, 2017 07:23 - CONCLUSION: Nasogastric tube across the GE junction with minimal gaseous distention. Aba Dick MD FACR Chest CT 01/04/17 0000 Signed Impressions: Service Date/Time: Wednesday, January 04, 2017 12:03 - CONCLUSION: 1. Consolidative changes with small bilateral pleural effusions in both bases. 2. Extensive coronary artery calcifications. Aba Dick MD FACR Renal Ultrasound 01/01/17 0000 Signed Impressions: Service Date/Time: Sunday, January 01, 2017 09:12 - CONCLUSION: Normal examination. Sushil Abdi Jr., MD Scrotum Ultrasound 12/28/16 1246 Signed Impressions: Service Date/Time: Wednesday, December 28, 2016 14:05 - CONCLUSION: 1. Marked thickening of the scrotal wall, up to 2.4 cm on the right. 2. Small complex left hydrocele. 3. Small complex cysts right testicle. Positive testicular blood flow. Nael Scott MD Abdomen/Pelvis CT 12/28/16 1237 Signed Impressions: Service Date/Time: Wednesday, December 28, 2016 14:52 - CONCLUSION: 1. 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 2. Mild bilateral inguinal adenopathy and marked scrotal wall thickening. 3. Fat-containing 5.7 cm umbilical hernia. 4. Atherosclerotic aorta with some displaced intimal calcifications but without significant aneurysm. No bowel obstruction. Mild ileus. Nael Scott MD Objective Remarks GENERAL: 71-year-old male, orotracheally intubated SKIN: Warm and dry. HEAD: Normocephalic. EYES: Pupils are 2 mm bilaterally and reactive. NECK: trachea midline.Supple. Right subclavian clean dry and intact but 10 days old. CARDIOVASCULAR: Bradycardia, Irreg. Intermittently paced. S1, S2 no S4. Without murmur RESPIRATORY: Diminished breath sounds due to body habitus. No wheezes. GASTROINTESTINAL: Abdomen soft, non-tender, obese. Hypoactive bowel sounds appreciated. Umbilical hernia remains reducible MUSCULOSKELETAL: Currently with trace to 2+ bilateral lower extremity pitting edema. Foot pulses palpable. : Minimal scrotal edema. Packing which is clean and dry in the groin. NEURO: Moves all 4 extremities spontaneously. Withdraws to pain. Follows commands off sedation. 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 CV: Congestive heart failure/systolic ejection fraction 25% 2013 Limited echo EF 35-40% with akinesis apical myocardium History of CABG 4 Hypertension Dyslipidemia History of single-chamber defibrillator 08/19 due to positive EPS study Holding valsartan 320 mg by mouth daily for hypertension due to acute kidney injury Continue Lipitor 40 mg by mouth daily/home medication for dyslipidemia On Coreg 50 mg by mouth twice a day at home for hypertension - decreased to 25 twice a day yesterday with underlying bradycardia Continue hydralazine 25 3 times a day/Isordil 10 every 8 as adjuvant while creatinine elevated Milrinone was discontinued 01/01 due to dysrhythmias Echo 2013 - EF 25-30%. No regional wall motion abnormality. Left atrium dilated Limited echo 2016 reveals EF 35-40%. Akinesis apical myocardium. Left atrium mild dilatated. Mild MR. At home on Lasix 40 mg by mouth twice a day. 60 milligrams IV Lasix held due to worsening renal function Started Bumex 1 twice a day today attempt to diurese. Continue spironolactone 12.5 mg daily Given 2 doses of digoxin 0.25 mg IV 1. Recheck digoxin level in a.m. was less than 0.4 Dr. Rob cardiology seen for for underlying atrial flutter. Likely ischemic workup Resp: Acute hypoxemic respiratory failure Ongoing tobaccoism [facility] 14/600/0.85/5/50 Ventilator bundle Bronchodilator therapy every 4 hours and as needed Spontaneous breathing trials today. Adequate weaning parameters however FiO2 50 % GI: Gastroesophageal reflux disease 5.7 cm umbilical hernia Glucerna 1.5 goal 55 cc an hour Pepcid 10 mg twice a day for GI prophylaxis. On Prilosec 20 mg by mouth daily at home Colace/senna twice a day for bowel regimen Umbilical hernia seen on CT is reducible. increase levemir to bid : Becca's gangrene BPH Postop for Becca's gangrene/ necrotizing fasciitis posterior scrotum, perineum and right perirectal tissue Postop washout and debridement for his gangrene Postoperative washout and debridement. 12/28 revealed gas in his perineum/scrotum and the right gluteal cleft. Followed by urology/Dr. Ling Endo: Diabetes mellitus Gout Holding Tanzeum 50 mg subcutaneous weekly. Holding allopurinol 200 mg by mouth daily for gout Sliding scale insulin with Accu-Cheks every 6 hours to maintain euglycemia. 8 units of sliding scale insulin past 24 hours and started on Levemir 5 daily -> BID Renal: Acute kidney injury - baseline creatinine 1.[address] revealed no signs of hydronephrosis. Urine eosinophils negative. Renal ultrasound revealed no hydronephrosis Creatinine currently 1.5 and downward trending. No indications for hemodialysis at this point. Heme: Normocytic anemia Leukocytosis Daily CBC. Monitor trends Transfuse 2 units PRBCs during this hospital stay. No current indication for transfusion of blood proximally at this time. ID: Becca's gangrene Group A beta strep UTI Unasyn 1.5 IV every 6 hours Clindamycin 300 mg by mouth every 6 hours completed 01/02 Zyvox day Pertinent cultures Sputum - 12/31 -no growth Abdomen abscess - 12/28 - Escherichia coli, E faecalis and coag negative staph Abdomen abscess - 12/28 - acid-fast bacilli/fungus negative Blood cultures 2 - 12/28 - no growth Urine culture - 12/28 -group A beta strep Infectious disease consulted. FEN: Hyper-magnesium Hypokalemia - resolved Hypernatremia Replace electrolytes as clinically indicated MSK: PT/OT evaluate and treat Access - Right IJ CVL day #10 placed 12/31 -> d/c - Left radial arterial line day #10 placed 12/31 -Left IJ CVL 01/11 #2 Prophylaxis - GI - Pepcid - DVT - SCD/heparin subcutaneous Overall impression: Remains very weak, restricted by chronic poor cardiac function. Stable for LTAC transfer anytime for vent weaning. Will get abx recommendations from ID prior to transport. Central lines changed. Responding to increased diuretics. Roshan Carlos MD Jan 13, 2017 08:51
[2017-01-13] MEDS ORDERED: INSULIN NovoLIN REGULAR SUPPLEMENTAL SCALE SQ SCH (14:00)
[2017-01-13] MEDS: hydrALAZINE HCL 20 MG/ML VIAL IV PUSH PRN (14:30)
[2017-01-13] MEDS: LABETALOL HCL 100 MG/20 ML VIAL IV PUSH PRN (17:58)
[2017-01-13] MEDS: RESP: ALBUTEROL 2.5 MG/IPRATROPIUM 0.5 MG NEB (PRN) INH (19:46)
[2017-01-13] MEDS: ATORVASTATIN 40 MG TAB PO SCH (20:59)
[2017-01-14] VITALS (18 sets, daily range): BP systolic 92–173; BP diastolic 54–94; PULSE 60–84; RESP 12–24; TEMP 97.7–98.9; O2SAT 93–100
[2017-01-14] MEDS: INSULIN NovoLIN REGULAR SUPPLEMENTAL SCALE SQ SCH ×4 (02:00→20:00)
[2017-01-14] MEDS: AMPICILLIN-SULBACTAM INJ 1,500 MG in SODIUM CHLORIDE 0.9% INJ 100 ML IV SCH ×4 (03:00→20:05)
[2017-01-14] MEDS: CHLORHEXIDINE GLUCONATE 2 % 1 PACK (2 CLOTHS) TOP SCH (04:00)
[2017-01-14 05:15] LABS: BICARBONATE 38.9 MEQ/L (21.0-32.0); POTASSIUM 3.3 MEQ/L (3.5-5.1)
[2017-01-14] MEDS: POTASSIUM CHLOR 40 MEQ PREMIX 100 ML IV PRN (05:37)
[2017-01-14] MEDS: HEPARIN SODIUM - SQ 10,000 UNITS/ML VIAL SQ SCH ×3 (06:18→22:06)
[2017-01-14] MEDS: METOCLOPRAMIDE HCL 10 MG/2 ML VIAL IV PUSH SCH ×3 (06:20→22:06)
[2017-01-14] MEDS: PROPOFOL 1000 MG/100 ML INJ 100 ML IV SCH ×4 (06:21→22:05)
[2017-01-14] MEDS: ISOSORBIDE DINITRATE 10 MG TAB PO SCH ×3 (06:22→22:06)
[2017-01-14] MEDS: hydrALAZINE HCL 25 MG TAB PO SCH ×3 (06:22→22:06)
[2017-01-14] MEDS: RESP: BUDESONIDE 0.5 MG/2 ML NEB NEB SCH ×2 (07:40→19:46)
[2017-01-14] MEDS: CHLORHEXIDINE 0.12% (ORAL KIT) 15 ML CUP MT SCH ×2 (08:00→22:06)
[2017-01-14] MEDS: SPIRONOLACTONE 25 MG TAB PO SCH (08:34)
[2017-01-14] MEDS: CARVEDILOL 12.5 MG TAB PO SCH ×2 (08:34→20:07)
[2017-01-14] MEDS: FAMOTIDINE 20 MG TAB PO SCH ×2 (08:34→20:07)
[2017-01-14] MEDS: INSULIN DETEMIR 100 UNITS/ML VIAL SQ SCH ×2 (08:34→20:08)
[2017-01-14] MEDS: SENNOSIDES SYRUP 8.8 MG/5 ML CUP PO SCH ×2 (08:34→20:07)
[2017-01-14] MEDS: DOCUSATE SODIUM 100 MG/10 ML UDC G-TUBE SCH ×2 (08:34→20:06)
[2017-01-14] MEDS: SODIUM CHLORIDE 0.9% FLUSH 10 ML FLUSH SCH ×2 (08:35→20:06)
[2017-01-14] MEDS: ARTIFICIAL TEARS OPTH SOLN 15 ML BTL EACH EYE SCH ×3 (08:36→18:25)
[2017-01-14] MEDS: LABETALOL HCL 100 MG/20 ML VIAL IV PUSH PRN (09:08)
--- NOTE | 2017-01-14 09:24 | HHI.CCPN ---
Subjective Remarks/Hospital Course 71-year-old male presents for evaluation of testicular swelling. Approximately 10 days ago he was started on Aldactone for his blood pressure which. He also noted that her sugars has been slightly elevated. Denies any fevers. He has been feeling generally weak as well. Denied abdominal pain nausea vomiting or diarrhea. He thought the scrotal swelling was from the Aldactone and came into the emergency department to be evaluated. 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 remains intubated overnight. off vasopressors. 12/30: Much more comfortable. Back to OR for washout today. Breathing without distress. STEFFEN improving. Patient has dilated cardiomyopathy with severe systolic heart failure and EF 25-30% by last ECHO 2013. May need low-dose inotrope during course of therapy. 12/30 1800 hrs: Seen after OR today. He has full neck veins and light wheezes with basilar crackles. His underlying LV dysfunction requires that we treat this aggressively with diuretics and subsequent electrolyte replacement. Will move back to [facility]. 12/31: Required rapid response for 2nd time in 12 hours. Will need intubation due to severe systolic heart failure and pulmonary edema. 01/01: Afebrile. Remains nothing by mouth for planned washout today. Decreased urine output noted. Hypertensive with sedation vacation. 01/02: Yesterday with washout and debridement without complication. Continues to be in A. fib intermittently rate controlled. Hemodynamically stable. One bowel movement. Will try spontaneous breathing trials today and attempt to extubate. If unsuccessful will initiate tube feeding. 01/03: Tmax 99.2. Episode of desaturation overnight recording FiO2 100%. Currently back to 50%. Chest x-ray essentially stable. Small left pleural effusion. Low lung volumes. Remains in a flutter rate controlled. Imminently bradycardic. 3 bowel movements on 01/02. Tolerating tube feeding. 01/04: FiO2 currently at 50%. We'll check CT chest. Possible need pleural effusions. Remains in a flutter rate control. Intermittently bradycardic. No bowel movement yesterday. Tube feeds currently off for possible extubation but tolerating previously. Afebrile 01/05: Remains on FiO2 of 50%. CT chest revealed small bilateral pleural effusions otherwise unremarkable. Noted is currently rate controlled. No bowel movement. Tube feeds at goal. Afebrile. Intermittently follows commands. Subjective: 01/06: FiO2 40%. Self extubated yesterday. Lasted about 20 Mr. for requiring intubation. Was on 100 percent nonrebreather. Saturations are 90%. During intubation, Ambu bag malfunctioned. Patient was quickly intubated and was arousable moving all 4 extremities prior to re-sedation. We'll attempt sedation vacation again today. 01/07: Remains ventilator dependent, failed extubation yesterday. Unable to wean today, weak. 01/08: Tolerating CPAP trials but unable to extubate. 01/09: Plan transfer to LTAC. 01/10: Continued improvement in renal function. Contraction alkalosis with diuresis. Will require LTAC. 01/11: Will need to get a fair amount of excess water off. Consider gtt. 01/11: Great response to bumex gtt. 01/13: Continue diuresis. Replete electrolytes. Reduce vent rate. 01/14: Diuresed 10 liters net balance. Replace lytes. Correct HCO3 with diamox. Wean vent. Objective Vital Signs Date Time Temp Pulse Resp B/P Pulse Ox O2 Delivery O2 Flow Rate FiO2 01/14/17 07:47 40 01/14/17 07:43 100 01/14/17 06:00 65 01/14/17 04:00 98.5 12 133/84 01/13/17 20:00 Mechanical Ventilator Intake and Output 01/13/17 01/13/17 01/14/17 08:00 16:00 00:00 Intake Total 926 ml 788 ml 1109 ml Output Total 1300 ml 2550 ml 2750 ml Balance -374 ml -1762 ml -1641 ml Result Diagram: 01/12/17 0430 01/14/17 0438 Imaging Last Impressions Chest X-Ray 01/06/17 0600 Signed Impressions: Service Date/Time: Friday, January 06, 2017 04:21 - CONCLUSION: Cardiomegaly with bilateral pleural effusions and bibasilar infiltrates. The radiographic pattern is most consistent with pulmonary edema. Sushil Abdi Jr., MD Abdomen X-Ray 01/05/17 0000 Signed Impressions: Service Date/Time: Thursday, January 05, 2017 07:23 - CONCLUSION: Nasogastric tube across the GE junction with minimal gaseous distention. Aba Dick MD FACR Chest CT 01/04/17 0000 Signed Impressions: Service Date/Time: Wednesday, January 04, 2017 12:03 - CONCLUSION: 1. Consolidative changes with small bilateral pleural effusions in both bases. 2. Extensive coronary artery calcifications. Aba Dick MD FACR Renal Ultrasound 01/01/17 0000 Signed Impressions: Service Date/Time: Sunday, January 01, 2017 09:12 - CONCLUSION: Normal examination. Sushil Abdi Jr., MD Scrotum Ultrasound 12/28/16 1246 Signed Impressions: Service Date/Time: Wednesday, December 28, 2016 14:05 - CONCLUSION: 1. Marked thickening of the scrotal wall, up to 2.4 cm on the right. 2. Small complex left hydrocele. 3. Small complex cysts right testicle. Positive testicular blood flow. Nael Scott MD Abdomen/Pelvis CT 12/28/16 1237 Signed Impressions: Service Date/Time: Wednesday, December 28, 2016 14:52 - CONCLUSION: 1. 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 2. Mild bilateral inguinal adenopathy and marked scrotal wall thickening. 3. Fat-containing 5.7 cm umbilical hernia. 4. Atherosclerotic aorta with some displaced intimal calcifications but without significant aneurysm. No bowel obstruction. Mild ileus. Nael Scott MD Objective Remarks GENERAL: 71-year-old male, orotracheally intubated SKIN: Warm and dry. HEAD: Normocephalic. EYES: Pupils are 2 mm bilaterally and reactive. NECK: trachea midline.Supple. CARDIOVASCULAR: Bradycardia, Irreg. Intermittently paced. S1, S2 no S4. Without murmur RESPIRATORY: Diminished breath sounds due to body habitus. No wheezes. GASTROINTESTINAL: Abdomen soft, non-tender, obese. Hypoactive bowel sounds appreciated. Umbilical hernia remains reducible MUSCULOSKELETAL: Currently with trace to 2+ bilateral lower extremity pitting edema. Foot pulses palpable. : Packing which is clean and dry in the groin. NEURO: Moves all 4 extremities spontaneously. Withdraws to pain. Follows commands off sedation. 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 CV: Congestive heart failure/systolic ejection fraction 25% 2013 Limited echo EF 35-40% with akinesis apical myocardium History of CABG 4 Hypertension Dyslipidemia History of single-chamber defibrillator 08/19 due to positive EPS study Holding valsartan 320 mg by mouth daily for hypertension due to acute kidney injury Continue Lipitor 40 mg by mouth daily/home medication for dyslipidemia On Coreg 50 mg by mouth twice a day at home for hypertension - decreased to 25 twice a day yesterday with underlying bradycardia Continue hydralazine 25 3 times a day/Isordil 10 every 8 as adjuvant while creatinine elevated Milrinone was discontinued 01/01 due to dysrhythmias Echo 2013 - EF 25-30%. No regional wall motion abnormality. Left atrium dilated Limited echo 2016 reveals EF 35-40%. Akinesis apical myocardium. Left atrium mild dilatated. Mild MR. At home on Lasix 40 mg by mouth twice a day. 60 milligrams IV Lasix held due to worsening renal function Started Bumex 1 twice a day today attempt to diurese. Continue spironolactone 12.5 mg daily Given 2 doses of digoxin 0.25 mg IV 1. Recheck digoxin level in a.m. was less than 0.4 Dr. Rob cardiology seen for for underlying atrial flutter. Likely ischemic workup Resp: Acute hypoxemic respiratory failure Ongoing tobaccoism PRVC 14/600/0.85/5/50 Ventilator bundle Bronchodilator therapy every 4 hours and as needed Spontaneous breathing trials today. Adequate weaning parameters however FiO2 50 % GI: Gastroesophageal reflux disease 5.7 cm umbilical hernia Glucerna 1.5 goal 55 cc an hour Pepcid 10 mg twice a day for GI prophylaxis. On Prilosec 20 mg by mouth daily at home Colace/senna twice a day for bowel regimen Umbilical hernia seen on CT is reducible. increase levemir to bid : Becca's gangrene BPH Postop for Becca's gangrene/ necrotizing fasciitis posterior scrotum, perineum and right perirectal tissue Postop washout and debridement for his gangrene Postoperative washout and debridement. 12/28 revealed gas in his perineum/scrotum and the right gluteal cleft. Followed by urology/Dr. Ling Endo: Diabetes mellitus Gout Holding Tanzeum 50 mg subcutaneous weekly. Holding allopurinol 200 mg by mouth daily for gout Sliding scale insulin with Accu-Cheks every 6 hours to maintain euglycemia. 8 units of sliding scale insulin past 24 hours and started on Levemir 5 daily -> BID Renal: Acute kidney injury - baseline creatinine 1.[address] revealed no signs of hydronephrosis. Urine eosinophils negative. Renal ultrasound revealed no hydronephrosis Creatinine currently 1.5 and downward trending. No indications for hemodialysis at this point. Heme: Normocytic anemia Leukocytosis Daily CBC. Monitor trends Transfuse 2 units PRBCs during this hospital stay. No current indication for transfusion of blood proximally at this time. ID: Becca's gangrene Group A beta strep UTI Unasyn 1.5 IV every 6 hours Clindamycin 300 mg by mouth every 6 hours completed 01/02 Zyvox day Pertinent cultures Sputum - 12/31 -no growth Abdomen abscess - 12/28 - Escherichia coli, E faecalis and coag negative staph Abdomen abscess - 12/28 - acid-fast bacilli/fungus negative Blood cultures 2 - 12/28 - no growth Urine culture - 12/28 -group A beta strep Infectious disease consulted. FEN: Hyper-magnesium Hypokalemia - resolved Hypernatremia Replace electrolytes as clinically indicated MSK: PT/OT evaluate and treat Access - Right IJ CVL day #10 placed 12/31 -> d/c - Left radial arterial line day #11 placed 12/31 -Left IJ CVL 01/11 #3 Prophylaxis - GI - Pepcid - DVT - SCD/heparin subcutaneous Overall impression: Remains very weak, restricted by chronic poor cardiac function. Stable for LTAC transfer anytime for vent weaning. Will get abx recommendations from ID prior to transport. Central lines changed. Responding to increased diuretics. Will trial extubation. Roshan Carlos MD Jan 14, 2017 09:24
[2017-01-14] MEDS: ALBUMIN HUMAN 25% 25 GM/100 ML BAGP IV SCH ×2 (09:58→18:25)
--- NOTE | 2017-01-14 17:39 | HHI.PR ---
Subjective Patient symptoms today PT seen and examined. Objective Vital Signs Vital Signs Date Time Temp Pulse Resp B/P Pulse Ox O2 Delivery O2 Flow Rate FiO2 01/14/17 16:00 40 01/14/17 16:00 98.9 66 12 103/54 97 01/14/17 16:00 63 01/14/17 15:02 100 40 01/14/17 14:00 80 01/14/17 12:00 97.7 84 24 173/94 98 01/14/17 12:00 80 01/14/17 11:10 96 40 01/14/17 10:00 78 01/14/17 08:00 50 01/14/17 08:00 77 01/14/17 08:00 97 Mechanical Ventilator 50 01/14/17 08:00 98.1 80 21 162/75 99 01/14/17 07:47 40 01/14/17 07:43 100 40 01/14/17 06:00 65 01/14/17 04:00 50 01/14/17 04:00 98.5 64 12 133/84 96 01/14/17 04:00 65 01/14/17 03:51 95 40 01/14/17 02:00 65 01/14/17 01:11 94 40 01/14/17 00:00 50 01/14/17 00:00 98.0 65 12 92/54 94 01/14/17 00:00 65 01/13/17 22:09 96 40 01/13/17 22:00 65 01/13/17 20:00 50 01/13/17 20:00 98 Mechanical Ventilator 50 01/13/17 20:00 98.0 72 16 116/57 97 01/13/17 20:00 85 01/13/17 19:48 93 40 01/13/17 18:00 50 01/13/17 18:00 85 Intake & Output 01/14/17 01/14/17 07:00 19:00 Intake Total 1906 ml 1296 ml Output Total 1850 ml 1350 ml Balance 56 ml -54 ml IV Total 791 ml 420 ml Tube Feeding 1115 ml 816 ml Other 60 ml Output Urine Total 1800 ml 1350 ml Stool Total 50 ml # Bowel Movements 2 Result Diagram: 01/12/17 04301/14/17437 Objective Remarks Abd:soft,nt,nd Capps: urine clear Wound: moderate drainage noted. Scrotal erythema improved. 12/30 Abd:soft,nt,nd Capps with clear urine Scrotal erythema improved. 12/31 Abd:soft,nt,nd Capps with clear urine Dressings in place. Ext: neg C/C/E 01/02 Abd:soft,nt,nd Wound: clean with kay drains in place. 01/03 Abd:soft,nt,nd Wound looks clean. Small kay drain removed. 01/06 Abd:soft,nt,nd Drains out 01/07 Abd:soft,nt,nd Wound looks good; healing 01/14 Abd:soft,nt,nd Wound: clean and healing. Wet/Dry dressing changes Leave fecal catch container in place Medications and IVs Current Medications Medications (Trade) Dose Ordered Sig/Abdiel Route Start Time Stop Time Status Last Admin (NS Flush) 2 ml UNSCH PRN .XX 12/28/16 20:15 (NS Flush) 2 ml BID .XX 12/28/16 21:00 01/14/17 08:35 (Tylenol) 650 mg Q6H PRN PO 12/28/16 20:15 01/09/17 20:08 (Tears Naturale Opth Soln) 1 drop TID EACH EYE 12/29/16 09:00 01/14/17 14:55 (Zofran Inj) 4 mg Q6H PRN IV 12/28/16 20:15 (Colace Liq) 100 mg Q12H G-TUBE 12/28/16 21:00 01/14/17 08:34 (Heparin Inj) 5,000 units Q8H SQ 12/28/16 22:00 01/14/17 14:54 Miscellaneous Information 1 Q361D XX 12/28/16 20:15 12/29/16 00:29 (Chlorhexidine 2% Cloth) Taper DAILY@04 TOP 12/29/16 04:00 12/25/17 03:59 01/14/17 04:00 (Chlorhexidine 2% Cloth) 3 pack UNSCH PRN TOP 12/28/16 20:15 (D50w (Vial) Inj) 25 ml UNSCH PRN IV PUSH 12/29/16 07:15 (Roxicodone) 5 mg Q4H PRN PO 12/29/16 15:00 01/13/17 03:14 (Lipitor) 40 mg HS PO 12/30/16 21:00 01/13/17 20:59 (Aldactone) 12.5 mg DAILY PO 12/31/16 09:00 01/14/17 08:34 (Pill Splitter) 1 ea UNSCH PRN OTHER 12/30/16 12:15 Chlorhexidine Gluconate 15 ml 15 ml BID@08,20 MT 12/31/16 20:00 01/14/17 08:00 (Diprivan 1000 Mg/100ml Inj) 100 ml @ 0 mls/hr TITRATE IV 12/31/16 16:00 01/14/17 14:54 (Trandate Inj) 10 mg Q1HR PRN IV PUSH 01/02/17 08:00 01/14/17 09:08 (Apresoline Inj) 10 mg Q1HR PRN IV PUSH 01/02/17 08:00 01/13/17 14:30 (Nitroglycerin 2% Oint) 2 inch Q6HR PRN TOPICAL 01/02/17 08:00 01/02/17 08:44 (Dilaudid Pf Inj) 1 mg Q2H PRN IV PUSH 01/02/17 16:00 01/06/17 22:08 (Coreg) 25 mg BID PO 01/03/17 09:00 01/14/17 08:34 (Senna Liq) 8.8 mg BID PO 01/03/17 09:00 01/14/17 08:34 (Apresoline) 25 mg Q8HR PO 01/03/17 06:30 01/14/17 14:54 (Isordil) 10 mg Q8HR PO 01/03/17 06:30 01/14/17 14:54 Glycerin 2 gm 2 gm BID PRN RECTAL 01/04/17 21:00 (Unasyn Inj/NS Inj) 100 ml @ 200 mls/hr Q6H IV 01/04/17 15:00 01/14/17 14:58 (Reglan Inj) 5 mg Q8HR IV PUSH 01/05/17 06:30 01/14/17 14:54 Insulin Detemir 8 units 8 units Q12H SQ 01/11/17 09:00 01/14/17 08:34 Bumetanide 100 ml @ 1 mls/hr CONTINUOUS IV 01/11/17 09:00 01/13/17 03:14 Potassium Chloride 100 ml @ 50 mls/hr Q2H PRN IV 01/12/17 09:00 Potassium Chloride 100 ml @ 50 mls/hr Q2H PRN IV 01/12/17 09:00 Potassium Chloride 100 ml @ 25 mls/hr UNSCH PRN IV 01/12/17 09:00 01/14/17 05:37 Potassium Chloride 100 ml @ 50 mls/hr Q2H PRN IV 01/12/17 09:00 (Magnesium Sulfate Inj/NS Inj) 100 ml @ 50 mls/hr UNSCH PRN IV 01/12/17 09:00 Magnesium Oxide 800 mg 800 mg UNSCH PRN PO 01/12/17 09:00 (Magnesium Sulfate Inj/NS Inj) 100 ml @ 50 mls/hr UNSCH PRN IV 01/12/17 09:00 Potassium Phosphate 2000 mg 2,000 mg Q4H PRN PO 01/12/17 09:00 (Sodium Phosphate Inj/NS 250 ml Inj) 250 ml @ 42 mls/hr UNSCH PRN IV 01/12/17 09:00 Potassium Phosphate 2000 mg 2,000 mg UNSCH PRN PO/TUBE 01/12/17 09:00 (Potassium Phosphate Inj/NS 250 ml Inj) 260 ml @ 42 mls/hr UNSCH PRN IV 01/12/17 09:00 (NovoLIN R SUPPLEMENTAL SCALE) 1 Q6H SQ 01/13/17 14:00 01/14/17 13:44 (Albumin 25% Inj) 25 gm Q8H IV 01/14/17 10:00 01/15/17 09:59 01/14/17 09:58 (Pepcid) 10 mg BID PO 01/14/17 21:00 Assessment and Plan Assessment and Plan 71-year-old male with perineal/rectal abscess; 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 Patient will require IR intervention for debridement with washout. Risk and benefits discussed and patient is willing to proceed. 12/29 71 y.o male s/p debridement and washout of necrotizing fascitis Will plan to return to OR tomorrow for washout NPO after MN 12/30 71 y.o. male s/p debridement with washout of necrotizing fascitis OR today for washout. NPO 12/31 71 y.o. male s/p debridement with washout of necrotizing fascitis For washout with closure tomorrow in OR. NPO 01/02 Stable s/p debridement and washout of necrotizing fascitis Extubate today per SICU attending Will remove kay in a few days. 01/03 Stable s/p debridement and washout of necrotizing fascitis For Bronchoscopy today. Hopeful extubation soon. Will remove kay drains over weekend. 01/06 Stable s/p debridement and washout of necrotizing fascitis with closure Extubate/Trach Void trial when OOB and ambulating 01/07 Stable s/p debridement and washout of necrotizing fascitis with closure Void trial in future Call with questions 01/14 Stable s/p debridement and washout of necrotizing fascitis with closure Will need to leave fecal collection system in place Wet/Dry dressing changes BID Tim Ling DO Jan 14, 2017 17:39
[2017-01-14] MEDS: ATORVASTATIN 40 MG TAB PO SCH (20:07)
[2017-01-15] VITALS (18 sets, daily range): BP systolic 95–194; BP diastolic 51–85; PULSE 50–86; RESP 12–22; TEMP 98–98.9; O2SAT 92–100
[2017-01-15] MEDS: INSULIN NovoLIN REGULAR SUPPLEMENTAL SCALE SQ SCH ×4 (02:00→20:00)
[2017-01-15] MEDS: AMPICILLIN-SULBACTAM INJ 1,500 MG in SODIUM CHLORIDE 0.9% INJ 100 ML IV SCH ×4 (02:21→20:26)
[2017-01-15] MEDS: ALBUMIN HUMAN 25% 25 GM/100 ML BAGP IV SCH (02:21)
[2017-01-15] MEDS: CHLORHEXIDINE GLUCONATE 2 % 1 PACK (2 CLOTHS) TOP SCH (04:00)
[2017-01-15] MEDS: PROPOFOL 1000 MG/100 ML INJ 100 ML IV SCH ×5 (05:13→22:31)
[2017-01-15] MEDS: METOCLOPRAMIDE HCL 10 MG/2 ML VIAL IV PUSH SCH ×3 (05:13→22:19)
[2017-01-15] MEDS: HEPARIN SODIUM - SQ 10,000 UNITS/ML VIAL SQ SCH ×3 (05:13→22:19)
[2017-01-15] MEDS: ISOSORBIDE DINITRATE 10 MG TAB PO SCH ×3 (05:14→22:20)
[2017-01-15] MEDS: hydrALAZINE HCL 25 MG TAB PO SCH ×3 (05:14→22:20)
[2017-01-15 06:58] LABS: HEMATOCRIT 25.2 % (39.0-51.0); MEAN CELL VOLUME 84.8 FL (80.0-100.0); MEAN CORPUSCULAR HEMOGLOBIN 27.2 PG (27.0-34.0); PLATELET COUNT 101 TH/MM3 (150-450); RED BLOOD COUNT 2.97 MIL/MM3 (4.50-5.90); RED CELL DISTRIBUTION WIDTH 18.8 % (11.6-17.2); REVIEW FLAG FINAL; WHITE BLOOD COUNT 5.7 TH/MM3 (4.0-11.0)
[2017-01-15 07:22] LABS: MAGNESIUM 2.6 MG/DL (1.5-2.5); POTASSIUM 3.6 MEQ/L (3.5-5.1)
[2017-01-15] MEDS: RESP: BUDESONIDE 0.5 MG/2 ML NEB NEB SCH ×2 (07:56→19:46)
[2017-01-15] MEDS: RESP: ALBUTEROL 2.5 MG/IPRATROPIUM 0.5 MG NEB (PRN) INH ×2 (07:56→16:27)
[2017-01-15] MEDS: SODIUM CHLORIDE 0.9% FLUSH 10 ML FLUSH SCH ×2 (08:07→20:23)
[2017-01-15] MEDS: INSULIN DETEMIR 100 UNITS/ML VIAL SQ SCH ×3 (08:07→21:00)
[2017-01-15] MEDS: DOCUSATE SODIUM 100 MG/10 ML UDC G-TUBE SCH ×2 (08:07→20:24)
[2017-01-15] MEDS: SENNOSIDES SYRUP 8.8 MG/5 ML CUP PO SCH ×2 (08:07→20:24)
[2017-01-15] MEDS: ARTIFICIAL TEARS OPTH SOLN 15 ML BTL EACH EYE SCH ×3 (08:08→18:03)
[2017-01-15] MEDS: CHLORHEXIDINE 0.12% (ORAL KIT) 15 ML CUP MT SCH ×2 (08:08→20:22)
[2017-01-15] MEDS: FAMOTIDINE 20 MG TAB PO SCH ×2 (08:09→20:27)
[2017-01-15] MEDS: SPIRONOLACTONE 25 MG TAB PO SCH (08:09)
[2017-01-15] MEDS: CARVEDILOL 12.5 MG TAB PO SCH ×2 (08:09→20:25)
--- NOTE | 2017-01-15 09:29 | HHI.CCPN ---
Subjective Remarks/Hospital Course 71-year-old male presents for evaluation of testicular swelling. Approximately 10 days ago he was started on Aldactone for his blood pressure which. He also noted that her sugars has been slightly elevated. Denies any fevers. He has been feeling generally weak as well. Denied abdominal pain nausea vomiting or diarrhea. He thought the scrotal swelling was from the Aldactone and came into the emergency department to be evaluated. 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 remains intubated overnight. off vasopressors. 12/30: Much more comfortable. Back to OR for washout today. Breathing without distress. STEFFEN improving. Patient has dilated cardiomyopathy with severe systolic heart failure and EF 25-30% by last ECHO 2013. May need low-dose inotrope during course of therapy. 12/30 1800 hrs: Seen after OR today. He has full neck veins and light wheezes with basilar crackles. His underlying LV dysfunction requires that we treat this aggressively with diuretics and subsequent electrolyte replacement. Will move back to [facility]. 12/31: Required rapid response for 2nd time in 12 hours. Will need intubation due to severe systolic heart failure and pulmonary edema. 01/01: Afebrile. Remains nothing by mouth for planned washout today. Decreased urine output noted. Hypertensive with sedation vacation. 01/02: Yesterday with washout and debridement without complication. Continues to be in A. fib intermittently rate controlled. Hemodynamically stable. One bowel movement. Will try spontaneous breathing trials today and attempt to extubate. If unsuccessful will initiate tube feeding. 01/03: Tmax 99.2. Episode of desaturation overnight recording FiO2 100%. Currently back to 50%. Chest x-ray essentially stable. Small left pleural effusion. Low lung volumes. Remains in a flutter rate controlled. Imminently bradycardic. 3 bowel movements on 01/02. Tolerating tube feeding. 01/04: FiO2 currently at 50%. We'll check CT chest. Possible need pleural effusions. Remains in a flutter rate control. Intermittently bradycardic. No bowel movement yesterday. Tube feeds currently off for possible extubation but tolerating previously. Afebrile 01/05: Remains on FiO2 of 50%. CT chest revealed small bilateral pleural effusions otherwise unremarkable. Noted is currently rate controlled. No bowel movement. Tube feeds at goal. Afebrile. Intermittently follows commands. Subjective: 01/06: FiO2 40%. Self extubated yesterday. Lasted about 20 Mr. for requiring intubation. Was on 100 percent nonrebreather. Saturations are 90%. During intubation, Ambu bag malfunctioned. Patient was quickly intubated and was arousable moving all 4 extremities prior to re-sedation. We'll attempt sedation vacation again today. 01/07: Remains ventilator dependent, failed extubation yesterday. Unable to wean today, weak. 01/08: Tolerating CPAP trials but unable to extubate. 01/09: Plan transfer to LTAC. 01/10: Continued improvement in renal function. Contraction alkalosis with diuresis. Will require LTAC. 01/11: Will need to get a fair amount of excess water off. Consider gtt. 01/11: Great response to bumex gtt. 01/13: Continue diuresis. Replete electrolytes. Reduce vent rate. 01/14: Diuresed 10 liters net balance. Replace lytes. Correct HCO3 with diamox. Wean vent. 01/15: Despite aggressive diuresis and clearing of CXR he does not tolerate extended SBTs. He will need a tracheostomy if family wishes to pursue aggressive care. Objective Vital Signs Date Time Temp Pulse Resp B/P Pulse Ox O2 Delivery O2 Flow Rate FiO2 01/15/17 09:05 40 01/15/17 09:05 92 01/15/17 07:00 Mechanical Ventilator 01/15/17 06:00 53 01/15/17 04:00 98.8 12 139/66 Intake and Output 01/14/17 01/14/17 01/15/17 08:00 16:00 00:00 Intake Total 797 ml 1296 ml 924 ml Output Total 700 ml 1350 ml 2050 ml Balance 97 ml -54 ml -1126 ml Result Diagram: 01/15/1761601/15/17616 Imaging Last Impressions Chest X-Ray 01/06/17599 Signed Impressions: Service Date/Time: Friday, January 06, 2017 04:21 - CONCLUSION: Cardiomegaly with bilateral pleural effusions and bibasilar infiltrates. The radiographic pattern is most consistent with pulmonary edema. Sushil Abdi Jr., MD Abdomen X-Ray 01/05/17 0000 Signed Impressions: Service Date/Time: Thursday, January 05, 2017 07:23 - CONCLUSION: Nasogastric tube across the GE junction with minimal gaseous distention. Aba Dick MD FACR Chest CT 01/04/17 0000 Signed Impressions: Service Date/Time: Wednesday, January 04, 2017 12:03 - CONCLUSION: 1. Consolidative changes with small bilateral pleural effusions in both bases. 2. Extensive coronary artery calcifications. Aba Dick MD FACR Renal Ultrasound 01/01/17 0000 Signed Impressions: Service Date/Time: Sunday, January 01, 2017 09:12 - CONCLUSION: Normal examination. Sushil Abdi Jr., MD Scrotum Ultrasound 12/28/16 1246 Signed Impressions: Service Date/Time: Wednesday, December 28, 2016 14:05 - CONCLUSION: 1. Marked thickening of the scrotal wall, up to 2.4 cm on the right. 2. Small complex left hydrocele. 3. Small complex cysts right testicle. Positive testicular blood flow. Nael Scott MD Abdomen/Pelvis CT 12/28/16 1237 Signed Impressions: Service Date/Time: Wednesday, December 28, 2016 14:52 - CONCLUSION: 1. 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 2. Mild bilateral inguinal adenopathy and marked scrotal wall thickening. 3. Fat-containing 5.7 cm umbilical hernia. 4. Atherosclerotic aorta with some displaced intimal calcifications but without significant aneurysm. No bowel obstruction. Mild ileus. Nael Scott MD Objective Remarks GENERAL: 71-year-old male, orotracheally intubated SKIN: Warm and dry. HEAD: Normocephalic. EYES: Pupils are 2 mm bilaterally and reactive. NECK: trachea midline.Supple. CARDIOVASCULAR: Irreg Irreg Intermittently paced. S1, S2 no S4. Without murmur RESPIRATORY: Diminished breath sounds due to body habitus. No wheezes. Few scattered rhonchi. Lots of secretions. GASTROINTESTINAL: Abdomen soft, non-tender, obese. Active bowel sounds appreciated. Umbilical hernia remains reducible MUSCULOSKELETAL: Currently with trace to 2+ bilateral lower extremity pitting edema. Foot pulses palpable. : Packing which is clean and dry in the groin. NEURO: Moves all 4 extremities spontaneously. Withdraws to pain. Follows commands off sedation. 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 CV: Congestive heart failure/systolic ejection fraction 25% 2013 Limited echo EF 35-40% with akinesis apical myocardium History of CABG 4 Hypertension Dyslipidemia History of single-chamber defibrillator 08/19 due to positive EPS study Holding valsartan 320 mg by mouth daily for hypertension due to acute kidney injury Continue Lipitor 40 mg by mouth daily/home medication for dyslipidemia On Coreg 50 mg by mouth twice a day at home for hypertension - decreased to 25 twice a day yesterday with underlying bradycardia Continue hydralazine 25 3 times a day/Isordil 10 every 8 as adjuvant while creatinine elevated Milrinone was discontinued 01/01 due to dysrhythmias Echo 2013 - EF 25-30%. No regional wall motion abnormality. Left atrium dilated Limited echo 2016 reveals EF 35-40%. Akinesis apical myocardium. Left atrium mild dilatated. Mild MR. At home on Lasix 40 mg by mouth twice a day. 60 milligrams IV Lasix held due to worsening renal function Started Bumex 1 twice a day today attempt to diurese. Continue spironolactone 12.[address] Rob cardiology seen for for underlying atrial flutter. Likely ischemic workup Resp: Acute hypoxemic respiratory failure Ongoing tobaccoism PRVC 14/600/0.85/5/50 Ventilator bundle Bronchodilator therapy every 4 hours and as needed Spontaneous breathing trials today. Adequate weaning parameters however FiO2 50 % GI: Gastroesophageal reflux disease 5.7 cm umbilical hernia Glucerna 1.5 goal 55 cc an hour Pepcid 10 mg twice a day for GI prophylaxis. On Prilosec 20 mg by mouth daily at home Colace/senna twice a day for bowel regimen Umbilical hernia seen on CT is reducible. increase levemir to bid : Becca's gangrene BPH Postop for Becca's gangrene/ necrotizing fasciitis posterior scrotum, perineum and right perirectal tissue Postop washout and debridement for his gangrene Postoperative washout and debridement. 12/28 revealed gas in his perineum/scrotum and the right gluteal cleft. Followed by urology/Dr. Ling Perineal wound with considerable drainage. Endo: Diabetes mellitus Gout Holding Tanzeum 50 mg subcutaneous weekly. Holding allopurinol 200 mg by mouth daily for gout Sliding scale insulin with Accu-Cheks every 6 hours to maintain euglycemia. 8 units of sliding scale insulin past 24 hours and started on Levemir 5 daily -> BID Renal: Acute kidney injury - baseline creatinine 1.[address] revealed no signs of hydronephrosis. Urine eosinophils negative. Renal ultrasound revealed no hydronephrosis Creatinine currently 1.5 and downward trending. No indications for hemodialysis at this point. Heme: Normocytic anemia Leukocytosis Daily CBC. Monitor trends Transfuse 2 units PRBCs during this hospital stay. No current indication for transfusion of blood proximally at this time. ID: Becca's gangrene Group A beta strep UTI Unasyn 1.5 IV every 6 hours Clindamycin 300 mg by mouth every 6 hours completed 01/02 Zyvox day Pertinent cultures Sputum - 12/31 -no growth Abdomen abscess - 12/28 - Escherichia coli, E faecalis and coag negative staph Abdomen abscess - 12/28 - acid-fast bacilli/fungus negative Blood cultures 2 - 12/28 - no growth Urine culture - 12/28 -group A beta strep Infectious disease consulted. FEN: Hyper-magnesium Hypokalemia - resolved Hypernatremia Replace electrolytes as clinically indicated MSK: PT/OT evaluate and treat Access - Right IJ CVL day #10 placed 12/31 -> d/c - Left radial arterial line day #11 placed 12/31 -Left IJ CVL 01/11 #4 Prophylaxis - GI - Pepcid - DVT - SCD/heparin subcutaneous Overall impression: Remains very weak, restricted by chronic poor cardiac function. Will need tracheostomy if we are to pursue continued aggressive care. Roshan Carlos MD Jan 15, 2017 09:29
[2017-01-15] MEDS: FUROSEMIDE 40 MG/4 ML VIAL IV PUSH SCH (11:06)
[2017-01-15 13:26] LABS: APTT (PATIENT) 27.6 SEC (24.3-30.1); PROTHROMBIN TIME - PATIENT 11.5 SEC (9.8-11.6)
[2017-01-15] MEDS: HYDROmorphone HCL PF 1 MG/ML VIAL IV PUSH PRN (13:41)
--- NOTE | 2017-01-15 16:34 | HHI.IDPN ---
Subjective Subjective Remarks is a 71-year CM with PMHx of Diabetes who is on Tanzeum (GLP 1 agonist effects last upto once a week: its a subq injection). Patient reports he has been on this medication as despite good diet and compliance with meds his A1C was 7.7. He also reports history of pacemaker and defibrillator placement in 2016. He presents to the hospital due to testicular swelling. Patient reports swelling, discomfort and pain in the testicular area. He could not see it and does not know if he had a skin lesion prior to this episode at that site. He does report prior infections in the groin region. He also noted that her sugars has been slightly elevated. Denies any fevers. He has been feeling generally weak as well. Delayed entry ID consulted for sepsis, manisha's gangrene. D/w RN overnight events Remains on vent. Self extubated and reintubated few days back. Opens eyes and moves extremities on sedation vacation. Not much resp secretions. No fever No rash Has a dignishield to keep perineal operative area clean. Antibiotics Unasyn IV Lines Line sites with no e.o infection Past Medical History reviewed. Allergies: Coded Allergies: No Known Allergies (Verified , 12/28/16) Objective . Vital Signs Date Time Temp Pulse Resp B/P Pulse Ox O2 Delivery O2 Flow Rate FiO2 01/15/17 16:24 99 40 01/15/17 15:42 15 01/15/17 14:00 40 01/15/17 13:44 100 40 01/15/17 12:00 40 01/15/17 11:00 95 40 01/15/17 09:05 40 01/15/17 09:05 92 40 01/15/17 09:00 40 01/15/17 08:00 40 01/15/17 08:00 98.4 64 18 95/51 96 01/15/17 07:42 96 40 01/15/17 07:00 98 Mechanical Ventilator 50 01/15/17 06:00 53 01/15/17 04:02 94 40 01/15/17 04:00 40 01/15/17 04:00 98.8 57 12 139/66 98 01/15/17 04:00 60 01/15/17 02:00 80 01/15/17 01:01 100 40 01/15/17 00:00 59 01/15/17 00:00 98.9 59 12 128/60 98 01/15/17 00:00 40 01/14/17 22:00 60 01/14/17 20:00 74 01/14/17 20:00 97 Mechanical Ventilator 50 01/14/17 20:00 98.4 74 12 130/68 93 01/14/17 20:00 40 01/14/17 19:46 98 40 01/14/17 18:00 72 01/14/17 01/14/17 01/15/17 15:00 23:00 07:00 Intake Total 1296 ml 924 ml 944 ml Output Total 1350 ml 2050 ml 1250 ml Balance -54 ml -1126 ml -306 ml IV Total 420 ml 406 ml 423 ml Tube Feeding 816 ml 458 ml 461 ml Other 60 ml 60 ml 60 ml Output Urine Total 1350 ml 2000 ml 1200 ml Stool Total 50 ml 50 ml # Bowel Movements 2 . Laboratory Tests Test 01/15/17 06:17 White Blood Count 5.7 TH/MM3 Red Blood Count 2.97 MIL/MM3 Hemoglobin 8.1 GM/DL Hematocrit 25.2 % Mean Corpuscular Volume 84.8 FL Mean Corpuscular Hemoglobin 27.2 PG Mean Corpuscular Hemoglobin 32.0 % Concent Red Cell Distribution Width 18.8 % Platelet Count 101 TH/MM3 Mean Platelet Volume 9.5 FL Laboratory Tests Test 01/14/17 01/15/17 04:38 06:17 Sodium Level 145 MEQ/L 146 MEQ/L Potassium Level 3.3 MEQ/L 3.6 MEQ/L Chloride Level 101 MEQ/L 102 MEQ/L Carbon Dioxide Level 38.9 MEQ/L 38.0 MEQ/L Anion Gap 5 MEQ/L 6 MEQ/L Blood Urea Nitrogen 51 MG/DL 47 MG/DL Creatinine 1.47 MG/DL 1.39 MG/DL Estimat Glomerular Filtration 47 ML/MIN 51 ML/MIN Rate Random Glucose 163 MG/DL 172 MG/DL Calcium Level 8.1 MG/DL 8.8 MG/DL Phosphorus Level 3.5 MG/DL Magnesium Level 2.6 MG/DL Microbiology Date/Time Procedure Status Source Growth 01/14/17 18:00 Gram Stain - Final Resulted Sputum Endotracheal 01/14/17 18:00 Sputum Culture - Preliminary Resulted Gram Negative [facility] Last Impressions Chest X-Ray 01/03/17 0600 Signed Impressions: Service Date/Time: Tuesday, January 03, 2017 05:38 - CONCLUSION: 1. Mild bibasilar opacity representing either atelectasis, consolidation, or pleural effusion. 2. Stable enlargement of the cardiac silhouette. Camden Brennan MD Renal Ultrasound 01/01/17 0000 Signed Impressions: Service Date/Time: Sunday, January 01, 2017 09:12 - CONCLUSION: Normal examination. Sushil Abdi Jr., MD Scrotum Ultrasound 12/28/16 1246 Signed Impressions: Service Date/Time: Wednesday, December 28, 2016 14:05 - CONCLUSION: 1. Marked thickening of the scrotal wall, up to 2.4 cm on the right. 2. Small complex left hydrocele. 3. Small complex cysts right testicle. Positive testicular blood flow. Nael Scott MD Abdomen/Pelvis CT 12/28/16 1237 Signed Impressions: Service Date/Time: Wednesday, December 28, 2016 14:52 - CONCLUSION: 1. 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 2. Mild bilateral inguinal adenopathy and marked scrotal wall thickening. 3. Fat-containing 5.7 cm umbilical hernia. 4. Atherosclerotic aorta with some displaced intimal calcifications but without significant aneurysm. No bowel obstruction. Mild ileus. Nael Scott MD Physical Exam GENERAL: Obese, CM patient, in no apparent distress. SKIN: No rashes. HEAD: Atraumatic. Normocephalic. No temporal or scalp tenderness. EYES: Pupils equal round and reactive. Extraocular motions intact. No scleral icterus. No injection or drainage. ENT: Intubated NECK: Trachea midline. Supple, nontender, no meningeal signs. CARDIOVASCULAR: Regular rate and rhythm without murmurs, gallops, or rubs. RESPIRATORY: Clear to auscultation. Breath sounds equal bilaterally. GASTROINTESTINAL: Abdomen soft, non-tender, nondistended. Umbilical hernia noted. MUSCULOSKELETAL: Extremities without clubbing, cyanosis, or edema. Scrotal area with erythema noted. Packing noted. NEUROLOGICAL: Sedated Psych: could not be assessed. IV line sites with no e.o infection. 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 ? Pneumonia. E.faecalis, E.coli and Coag neg staph infection. Pulm edema: on vent Acute resp failure on Vent Grp D Enterococcus vs Strep in wound. Gram negative infection in groin. Diabetes Mellitus uncontrolled. H/o recurrent groin area infections. Acute renal failure: prerenal, sepsis. CAD, CABG, s/p defibrillator and pacemaker. Ef 20% on ECHO this admit per tech. Recs: Continue Unasyn IV plan on IV 4 weeks. If continues to improve at some point may convert to oral depending on clinical condition on follow up. GNR in sputum (not PSAE per discussion with micro). No change in vent settings, not much secretions, clinically stable: will continue Unasyn IV for now. Follow GNR in sputum. If any change in clinical condition overnight change to Zosyn IV. Follow cultures Follow clinically. d/w Joan Szymanski MD Jan 15, 2017 16:34
[2017-01-15] MEDS: ATORVASTATIN 40 MG TAB PO SCH (20:27)
[2017-01-15] MEDS: hydrALAZINE HCL 20 MG/ML VIAL IV PUSH PRN (20:55)
[2017-01-16] VITALS (19 sets, daily range): BP systolic 134–155; BP diastolic 62–125; PULSE 58–92; RESP 12–17; TEMP 97.9–98.6; O2SAT 94–100
[2017-01-16] MEDS: hydrALAZINE HCL 20 MG/ML VIAL IV PUSH PRN (01:22)
[2017-01-16] MEDS: INSULIN NovoLIN REGULAR SUPPLEMENTAL SCALE SQ SCH ×4 (02:00→19:45)
[2017-01-16] MEDS: PROPOFOL 1000 MG/100 ML INJ 100 ML IV SCH ×4 (03:19→18:03)
[2017-01-16] MEDS: AMPICILLIN-SULBACTAM INJ 1,500 MG in SODIUM CHLORIDE 0.9% INJ 100 ML IV SCH ×3 (03:19→15:18)
[2017-01-16] MEDS: CHLORHEXIDINE GLUCONATE 2 % 1 PACK (2 CLOTHS) TOP SCH (04:00)
[2017-01-16 05:02] LABS: BICARBONATE 36.1 MEQ/L (21.0-32.0); POTASSIUM 3.5 MEQ/L (3.5-5.1)
[2017-01-16] MEDS: ISOSORBIDE DINITRATE 10 MG TAB PO SCH ×3 (05:59→21:45)
[2017-01-16] MEDS: hydrALAZINE HCL 25 MG TAB PO SCH ×3 (05:59→21:45)
[2017-01-16] MEDS: HEPARIN SODIUM - SQ 10,000 UNITS/ML VIAL SQ SCH ×3 (05:59→21:45)
[2017-01-16] MEDS: METOCLOPRAMIDE HCL 10 MG/2 ML VIAL IV PUSH SCH ×3 (05:59→21:44)
[2017-01-16] MEDS: CHLORHEXIDINE 0.12% (ORAL KIT) 15 ML CUP MT SCH ×2 (07:56→20:08)
[2017-01-16] MEDS: ARTIFICIAL TEARS OPTH SOLN 15 ML BTL EACH EYE SCH ×3 (07:58→17:36)
[2017-01-16] MEDS: DOCUSATE SODIUM 100 MG/10 ML UDC G-TUBE SCH ×2 (07:58→20:08)
[2017-01-16] MEDS: SODIUM CHLORIDE 0.9% FLUSH 10 ML FLUSH SCH ×2 (07:58→20:09)
[2017-01-16] MEDS: SPIRONOLACTONE 25 MG TAB PO SCH (08:00)
[2017-01-16] MEDS: FUROSEMIDE 40 MG/4 ML VIAL IV PUSH SCH (08:00)
[2017-01-16] MEDS: CARVEDILOL 12.5 MG TAB PO SCH ×2 (08:01→20:08)
[2017-01-16] MEDS: FAMOTIDINE 20 MG TAB PO SCH ×2 (08:01→20:09)
[2017-01-16] MEDS: SENNOSIDES SYRUP 8.8 MG/5 ML CUP PO SCH ×2 (08:01→20:08)
[2017-01-16] MEDS: RESP: ALBUTEROL 2.5 MG/IPRATROPIUM 0.5 MG NEB (PRN) INH (08:07)
[2017-01-16] MEDS: RESP: BUDESONIDE 0.5 MG/2 ML NEB NEB SCH ×2 (08:07→20:15)
[2017-01-16] MEDS: INSULIN DETEMIR 100 UNITS/ML VIAL SQ SCH ×2 (09:00→20:09)
--- NOTE | 2017-01-16 11:01 | HHI.PR ---
Subjective Patient symptoms today Pt seen and examined. Attempting to extubate. Eyes open Objective Vital Signs Vital Signs Date Time Temp Pulse Resp B/P Pulse Ox O2 Delivery O2 Flow Rate FiO2 01/16/17 08:30 40 01/16/17 08:30 100 40 01/16/17 08:00 98 Mechanical Ventilator 40 01/16/17 08:00 76 01/16/17 06:00 64 01/16/17 04:02 99 40 01/16/17 04:00 40 01/16/17 04:00 98.6 68 14 155/78 96 01/16/17 04:00 68 01/16/17 02:00 78 01/16/17 01:30 97 40 01/16/17 00:00 58 01/16/17 00:00 40 01/16/17 00:00 98.4 58 12 134/63 96 01/15/17 22:08 95 40 01/15/17 22:00 56 01/15/17 20:00 50 01/15/17 20:00 40 01/15/17 20:00 98.3 50 16 194/79 96 01/15/17 19:33 98 40 01/15/17 19:00 93 Venturi Mask 40 01/15/17 16:24 99 40 01/15/17 16:00 40 01/15/17 16:00 98.0 86 15 165/76 99 01/15/17 15:42 15 01/15/17 14:00 40 01/15/17 13:44 100 40 01/15/17 12:00 98.0 78 22 156/85 95 01/15/17 12:00 40 Intake & Output 01/16/17 01/16/17 07:00 19:00 Intake Total 855 ml Output Total 1950 ml Balance -1095 ml IV Total 765 ml Tube Feeding 0 ml Tube Irrigant 90 ml Output Urine Total 1850 ml Stool Total 50 ml Gastric Drainage Total 50 ml Result Diagram: 01/15/1761601/16/17 0412 Objective Remarks Abd:soft,nt,nd Capps: urine clear Wound: moderate drainage noted. Scrotal erythema improved. 12/30 Abd:soft,nt,nd Capps with clear urine Scrotal erythema improved. 12/31 Abd:soft,nt,nd Capps with clear urine Dressings in place. Ext: neg C/C/E 01/02 Abd:soft,nt,nd Wound: clean with kay drains in place. 01/03 Abd:soft,nt,nd Wound looks clean. Small kay drain removed. 01/06 Abd:soft,nt,nd Drains out 01/07 Abd:soft,nt,nd Wound looks good; healing 01/14 Abd:soft,nt,nd Wound: clean and healing. Wet/Dry dressing changes Leave fecal catch container in place 01/16 Abd:soft,nt,nd Wound: open without packing Fecal device in place Medications and IVs Current Medications Medications (Trade) Dose Ordered Sig/Abdiel Route Start Time Stop Time Status Last Admin (NS Flush) 2 ml UNSCH PRN .XX 12/28/16 20:15 (NS Flush) 2 ml BID .XX 12/28/16 21:00 01/16/17 07:58 (Tylenol) 650 mg Q6H PRN PO 12/28/16 20:15 01/09/17 20:08 (Tears Naturale Opth Soln) 1 drop TID EACH EYE 12/29/16 09:00 01/16/17 07:58 (Zofran Inj) 4 mg Q6H PRN IV 12/28/16 20:15 (Colace Liq) 100 mg Q12H G-TUBE 12/28/16 21:00 01/14/17 20:06 (Heparin Inj) 5,000 units Q8H SQ 12/28/16 22:00 01/16/17 05:59 Miscellaneous Information 1 Q361D XX 12/28/16 20:15 12/29/16 00:29 (Chlorhexidine 2% Cloth) Taper DAILY@04 TOP 12/29/16 04:00 12/25/17 03:59 01/15/17 04:00 (Chlorhexidine 2% Cloth) 3 pack UNSCH PRN TOP 12/28/16 20:15 (D50w (Vial) Inj) 25 ml UNSCH PRN IV PUSH 12/29/16 07:15 (Roxicodone) 5 mg Q4H PRN PO 12/29/16 15:00 01/13/17 03:14 (Lipitor) 40 mg HS PO 12/30/16 21:00 01/15/17 20:27 (Aldactone) 12.5 mg DAILY PO 12/31/16 09:00 01/16/17 08:00 (Pill Splitter) 1 ea UNSCH PRN OTHER 12/30/16 12:15 Chlorhexidine Gluconate 15 ml 15 ml BID@08,20 MT 12/31/16 20:00 01/16/17 07:56 (Diprivan 1000 Mg/100ml Inj) 100 ml @ 0 mls/hr TITRATE IV 12/31/16 16:00 01/16/17 05:59 (Trandate Inj) 10 mg Q1HR PRN IV PUSH 01/02/17 08:00 01/14/17 09:08 (Apresoline Inj) 10 mg Q1HR PRN IV PUSH 01/02/17 08:00 01/16/17 01:22 (Nitroglycerin 2% Oint) 2 inch Q6HR PRN TOPICAL 01/02/17 08:00 01/02/17 08:44 (Dilaudid Pf Inj) 1 mg Q2H PRN IV PUSH 01/02/17 16:00 01/15/17 13:41 (Coreg) 25 mg BID PO 01/03/17 09:00 01/16/17 08:01 (Senna Liq) 8.8 mg BID PO 01/03/17 09:00 01/16/17 08:01 (Apresoline) 25 mg Q8HR PO 01/03/17 06:30 01/16/17 05:59 (Isordil) 10 mg Q8HR PO 01/03/17 06:30 01/16/17 05:59 Glycerin 2 gm 2 gm BID PRN RECTAL 01/04/17 21:00 (Unasyn Inj/NS Inj) 100 ml @ 200 mls/hr Q6H IV 01/04/17 15:00 01/16/17 07:58 (Reglan Inj) 5 mg Q8HR IV PUSH 01/05/17 06:30 01/16/17 05:59 Insulin Detemir 8 units 8 units Q12H SQ 01/11/17 09:00 01/15/17 08:07 Potassium Chloride 100 ml @ 50 mls/hr Q2H PRN IV 01/12/17 09:00 Potassium Chloride 100 ml @ 50 mls/hr Q2H PRN IV 01/12/17 09:00 Potassium Chloride 100 ml @ 25 mls/hr UNSCH PRN IV 01/12/17 09:00 01/14/17 05:37 Potassium Chloride 100 ml @ 50 mls/hr Q2H PRN IV 01/12/17 09:00 (Magnesium Sulfate Inj/NS Inj) 100 ml @ 50 mls/hr UNSCH PRN IV 01/12/17 09:00 Magnesium Oxide 800 mg 800 mg UNSCH PRN PO 01/12/17 09:00 (Magnesium Sulfate Inj/NS Inj) 100 ml @ 50 mls/hr UNSCH PRN IV 01/12/17 09:00 Potassium Phosphate 2000 mg 2,000 mg Q4H PRN PO 01/12/17 09:00 (Sodium Phosphate Inj/NS 250 ml Inj) 250 ml @ 42 mls/hr UNSCH PRN IV 01/12/17 09:00 Potassium Phosphate 2000 mg 2,000 mg UNSCH PRN PO/TUBE 01/12/17 09:00 (Potassium Phosphate Inj/NS 250 ml Inj) 260 ml @ 42 mls/hr UNSCH PRN IV 01/12/17 09:00 (NovoLIN R SUPPLEMENTAL SCALE) 1 Q6H SQ 01/13/17 14:00 01/15/17 08:08 (Pepcid) 10 mg BID PO 01/14/17 21:00 01/16/17 08:01 (Lasix Inj) 40 mg DAILY IV PUSH 01/15/17 10:00 01/16/17 08:00 Assessment and Plan Assessment and Plan 71-year-old male with perineal/rectal abscess; 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 Patient will require IR intervention for debridement with washout. Risk and benefits discussed and patient is willing to proceed. 12/29 71 y.o male s/p debridement and washout of necrotizing fascitis Will plan to return to OR tomorrow for washout NPO after MN 12/30 71 y.o. male s/p debridement with washout of necrotizing fascitis OR today for washout. NPO 12/31 71 y.o. male s/p debridement with washout of necrotizing fascitis For washout with closure tomorrow in OR. NPO 01/02 Stable s/p debridement and washout of necrotizing fascitis Extubate today per SICU attending Will remove kay in a few days. 01/03 Stable s/p debridement and washout of necrotizing fascitis For Bronchoscopy today. Hopeful extubation soon. Will remove kay drains over weekend. 01/06 Stable s/p debridement and washout of necrotizing fascitis with closure Extubate/Trach Void trial when OOB and ambulating 01/07 Stable s/p debridement and washout of necrotizing fascitis with closure Void trial in future Call with questions 01/14 Stable s/p debridement and washout of necrotizing fascitis with closure Will need to leave fecal collection system in place Wet/Dry dressing changes BID 01/16 Stable s/p debridement and washout of necrotizing fascitis with closure Will need to leave fecal collection system in place Wet/Dry dressing changes BID Tim Ling DO Jan 16, 2017 11:01
[2017-01-16] MEDS: HYDROmorphone HCL PF 1 MG/ML VIAL IV PUSH PRN (13:46)
--- NOTE | 2017-01-16 14:05 | HHI.CCPN ---
Subjective Remarks/Hospital Course 71-year-old male presents for evaluation of testicular swelling. Approximately 10 days ago he was started on Aldactone for his blood pressure which. He also noted that her sugars has been slightly elevated. Denies any fevers. He has been feeling generally weak as well. Denied abdominal pain nausea vomiting or diarrhea. He thought the scrotal swelling was from the Aldactone and came into the emergency department to be evaluated. 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 remains intubated overnight. off vasopressors. 12/30: Much more comfortable. Back to OR for washout today. Breathing without distress. STEFFEN improving. Patient has dilated cardiomyopathy with severe systolic heart failure and EF 25-30% by last ECHO 2013. May need low-dose inotrope during course of therapy. 12/30 1800 hrs: Seen after OR today. He has full neck veins and light wheezes with basilar crackles. His underlying LV dysfunction requires that we treat this aggressively with diuretics and subsequent electrolyte replacement. Will move back to [facility]. 12/31: Required rapid response for 2nd time in 12 hours. Will need intubation due to severe systolic heart failure and pulmonary edema. 01/01: Afebrile. Remains nothing by mouth for planned washout today. Decreased urine output noted. Hypertensive with sedation vacation. 01/02: Yesterday with washout and debridement without complication. Continues to be in A. fib intermittently rate controlled. Hemodynamically stable. One bowel movement. Will try spontaneous breathing trials today and attempt to extubate. If unsuccessful will initiate tube feeding. 01/03: Tmax 99.2. Episode of desaturation overnight recording FiO2 100%. Currently back to 50%. Chest x-ray essentially stable. Small left pleural effusion. Low lung volumes. Remains in a flutter rate controlled. Imminently bradycardic. 3 bowel movements on 01/02. Tolerating tube feeding. 01/04: FiO2 currently at 50%. We'll check CT chest. Possible need pleural effusions. Remains in a flutter rate control. Intermittently bradycardic. No bowel movement yesterday. Tube feeds currently off for possible extubation but tolerating previously. Afebrile 01/05: Remains on FiO2 of 50%. CT chest revealed small bilateral pleural effusions otherwise unremarkable. Noted is currently rate controlled. No bowel movement. Tube feeds at goal. Afebrile. Intermittently follows commands. Subjective: 01/06: FiO2 40%. Self extubated yesterday. Lasted about 20 Mr. for requiring intubation. Was on 100 percent nonrebreather. Saturations are 90%. During intubation, Ambu bag malfunctioned. Patient was quickly intubated and was arousable moving all 4 extremities prior to re-sedation. We'll attempt sedation vacation again today. 01/07: Remains ventilator dependent, failed extubation yesterday. Unable to wean today, weak. 01/08: Tolerating CPAP trials but unable to extubate. 01/09: Plan transfer to LTAC. 01/10: Continued improvement in renal function. Contraction alkalosis with diuresis. Will require LTAC. 01/11: Will need to get a fair amount of excess water off. Consider gtt. 01/11: Great response to bumex gtt. 01/13: Continue diuresis. Replete electrolytes. Reduce vent rate. 01/14: Diuresed 10 liters net balance. Replace lytes. Correct HCO3 with diamox. Wean vent. 01/15: Despite aggressive diuresis and clearing of CXR he does not tolerate extended SBTs. He will need a tracheostomy if family wishes to pursue aggressive care. 01/16: Serratia in sputum, afebrile. WBC 5600. CXR benign. Objective Vital Signs Date Time Temp Pulse Resp B/P Pulse Ox O2 Delivery O2 Flow Rate FiO2 01/16/17 10:56 100 40 01/16/17 10:00 76 01/16/17 08:00 Mechanical Ventilator 01/16/17 08:00 97.9 14 139/74 Intake and Output 01/15/17 01/15/17 01/16/17 08:00 16:00 00:00 Intake Total 944 ml 620 ml 519 ml Output Total 1250 ml 2800 ml 1250 ml Balance -306 ml -2180 ml -731 ml Result Diagram: 01/15/1717 01/16/17 0412 Other Results Microbiology Date/Time Procedure Status Source Growth 01/14/17 18:00 Gram Stain - Final Complete Sputum Endotracheal 01/14/17 18:00 Sputum Culture - Final Complete Serratia Marcescens Imaging Last Impressions Chest X-Ray 01/06/17 0600 Signed Impressions: Service Date/Time: Friday, January 06, 2017 04:21 - CONCLUSION: Cardiomegaly with bilateral pleural effusions and bibasilar infiltrates. The radiographic pattern is most consistent with pulmonary edema. Sushil Abdi Jr., MD Abdomen X-Ray 01/05/17 0000 Signed Impressions: Service Date/Time: Thursday, January 05, 2017 07:23 - CONCLUSION: Nasogastric tube across the GE junction with minimal gaseous distention. Aba Dick MD FACR Chest CT 01/04/17 0000 Signed Impressions: Service Date/Time: Wednesday, January 04, 2017 12:03 - CONCLUSION: 1. Consolidative changes with small bilateral pleural effusions in both bases. 2. Extensive coronary artery calcifications. Aba Dick MD FACR Renal Ultrasound 01/01/17 0000 Signed Impressions: Service Date/Time: Sunday, January 01, 2017 09:12 - CONCLUSION: Normal examination. Sushil Abdi Jr., MD Scrotum Ultrasound 12/28/16 1246 Signed Impressions: Service Date/Time: Wednesday, December 28, 2016 14:05 - CONCLUSION: 1. Marked thickening of the scrotal wall, up to 2.4 cm on the right. 2. Small complex left hydrocele. 3. Small complex cysts right testicle. Positive testicular blood flow. Nael Scott MD Abdomen/Pelvis CT 12/28/16 1237 Signed Impressions: Service Date/Time: Wednesday, December 28, 2016 14:52 - CONCLUSION: 1. 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 2. Mild bilateral inguinal adenopathy and marked scrotal wall thickening. 3. Fat-containing 5.7 cm umbilical hernia. 4. Atherosclerotic aorta with some displaced intimal calcifications but without significant aneurysm. No bowel obstruction. Mild ileus. Nael Scott MD Objective Remarks GENERAL: 71-year-old male SKIN: Warm and dry. HEAD: Normocephalic. EYES: Pupils are 2 mm bilaterally and reactive. NECK: trachea midline. Supple. Orally intubated. CARDIOVASCULAR: Irreg Irreg Intermittently paced. S1, S2 no S4. Without murmur RESPIRATORY: Diminished breath sounds bases. No wheezes. Few scattered rhonchi. Lots of secretions. GASTROINTESTINAL: Abdomen soft, non-tender, obese. Active bowel sounds appreciated. Umbilical hernia remains reducible MUSCULOSKELETAL: Currently with trace to 2+ bilateral lower extremity pitting edema. Foot pulses palpable. : Packing which is clean and dry in the groin. NEURO: Moves all 4 extremities spontaneously. Withdraws to pain. Follows commands off sedation. 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 CV: Congestive heart failure/systolic ejection fraction 25% 2013 Limited echo EF 35-40% with akinesis apical myocardium History of CABG 4 Hypertension Dyslipidemia History of single-chamber defibrillator 08/19 due to positive EPS study Holding valsartan 320 mg by mouth daily for hypertension due to acute kidney injury Continue Lipitor 40 mg by mouth daily/home medication for dyslipidemia On Coreg 50 mg by mouth twice a day at home for hypertension - decreased to 25 twice a day yesterday with underlying bradycardia Continue hydralazine 25 3 times a day/Isordil 10 every 8 as adjuvant while creatinine elevated Milrinone was discontinued 01/01 due to dysrhythmias Echo 2013 - EF 25-30%. No regional wall motion abnormality. Left atrium dilated Limited echo 2016 reveals EF 35-40%. Akinesis apical myocardium. Left atrium mild dilatated. Mild MR. At home on Lasix 40 mg by mouth twice a day. 60 milligrams IV Lasix held due to worsening renal function Started Bumex 1 twice a day today attempt to diurese. Continue spironolactone 12.[address] Rob cardiology seen for for underlying atrial flutter. Likely ischemic workup Resp: Acute hypoxemic respiratory failure Ongoing tobaccoism PRVC 14/600/0.85/5/50 Ventilator bundle Bronchodilator therapy every 4 hours and as needed Spontaneous breathing trials today. Adequate weaning parameters however FiO2 50 % Serratia in sputum with copious secretions. GI: Gastroesophageal reflux disease 5.7 cm umbilical hernia Glucerna 1.5 goal 55 cc an hour Pepcid 10 mg twice a day for GI prophylaxis. On Prilosec 20 mg by mouth daily at home Colace/senna twice a day for bowel regimen Umbilical hernia seen on CT is reducible. increase levemir to bid : Becca's gangrene BPH Postop for Becca's gangrene/ necrotizing fasciitis posterior scrotum, perineum and right perirectal tissue Postop washout and debridement for his gangrene Postoperative washout and debridement. 12/28 revealed gas in his perineum/scrotum and the right gluteal cleft. Followed by urology/Dr. Ling Perineal wound with considerable drainage. Endo: Diabetes mellitus Gout Holding Tanzeum 50 mg subcutaneous weekly. Holding allopurinol 200 mg by mouth daily for gout Sliding scale insulin with Accu-Cheks every 6 hours to maintain euglycemia. 8 units of sliding scale insulin past 24 hours and started on Levemir 5 daily -> BID Renal: Acute kidney injury - baseline creatinine 1.[address] revealed no signs of hydronephrosis. Urine eosinophils negative. Renal ultrasound revealed no hydronephrosis Creatinine currently 1.5 and downward trending. No indications for hemodialysis at this point. Heme: Normocytic anemia Leukocytosis Daily CBC. Monitor trends Transfuse 2 units PRBCs during this hospital stay. No current indication for transfusion of blood proximally at this time. ID: Becca's gangrene Group A beta strep UTI Unasyn 1.5 IV every 6 hours Clindamycin 300 mg by mouth every 6 hours completed 01/02 Zyvox day Pertinent cultures Sputum 01/14 - Serratia Sputum - 12/31 -no growth Abdomen abscess - 12/28 - Escherichia coli, E faecalis and coag negative staph Abdomen abscess - 12/28 - acid-fast bacilli/fungus negative Blood cultures 2 - 12/28 - no growth Urine culture - 12/28 -group A beta strep Infectious disease consulted. FEN: Hyper-magnesium Hypokalemia - resolved Hypernatremia Replace electrolytes as clinically indicated MSK: PT/OT evaluate and treat Access - Right IJ CVL day #10 placed 12/31 -> d/c - Left radial arterial line day #11 placed 12/31 -Left IJ CVL 04/08 #5 Prophylaxis - GI - Pepcid - DVT - SCD/heparin subcutaneous Overall impression: Remains very weak, restricted by chronic poor cardiac function. Will need tracheostomy if we are to pursue continued aggressive care. Will not treat Serratia in sputum at this point - check with DYLAN. Roshan Carlos MD Jan 16, 2017 14:05
--- NOTE | 2017-01-16 17:29 | HHI.IDPN ---
Subjective Subjective Remarks is a 71-year CM with PMHx of Diabetes who is on Tanzeum (GLP 1 agonist effects last upto once a week: its a subq injection). Patient reports he has been on this medication as despite good diet and compliance with meds his A1C was 7.7. He also reports history of pacemaker and defibrillator placement in 2016. He presents to the hospital due to testicular swelling. Patient reports swelling, discomfort and pain in the testicular area. He could not see it and does not know if he had a skin lesion prior to this episode at that site. He does report prior infections in the groin region. He also noted that her sugars has been slightly elevated. Denies any fevers. He has been feeling generally weak as well. ID consulted for sepsis, manisha's gangrene. D/w RN overnight events Remains on vent, tried CPAP trials today and was exhausted towards the end. Opens eyes and moves extremities on sedation vacation. Not much resp secretions. Mostly oral secretions. No fever No rash Has a dignishield to keep perineal operative area clean. Antibiotics Unasyn IV Lines Line sites with no e.o infection Past Medical History reviewed. Allergies: Coded Allergies: No Known Allergies (Verified , 12/28/16) Objective . Vital Signs Date Time Temp Pulse Resp B/P Pulse Ox O2 Delivery O2 Flow Rate FiO2 01/16/17 16:00 68 17 134/62 98 01/16/17 16:00 59 01/16/17 15:37 94 40 01/16/17 14:00 40 01/16/17 14:00 68 01/16/17 14:00 98.1 84 155/125 98 01/16/17 14:00 68 01/16/17 13:00 92 01/16/17 13:00 82 01/16/17 12:00 98.2 78 01/16/17 12:00 84 01/16/17 10:56 100 40 01/16/17 10:00 76 01/16/17 08:30 40 01/16/17 08:30 100 40 01/16/17 08:00 40 01/16/17 08:00 98 Mechanical Ventilator 40 01/16/17 08:00 97.9 70 14 139/74 100 01/16/17 08:00 76 01/16/17 06:00 64 01/16/17 04:02 99 40 01/16/17 04:00 40 01/16/17 04:00 98.6 68 14 155/78 96 01/16/17 04:00 68 01/16/17 02:00 78 01/16/17 01:30 97 40 01/16/17 00:00 58 01/16/17 00:00 40 01/16/17 00:00 98.4 58 12 134/63 96 01/15/17 22:08 95 40 01/15/17 22:00 56 01/15/17 20:00 50 01/15/17 20:00 40 01/15/17 20:00 98.3 50 16 194/79 96 01/15/17 19:33 98 40 01/15/17 19:00 93 Venturi Mask 40 01/15/17 01/15/17 01/16/17 15:00 23:00 07:00 Intake Total 620 ml 519 ml 336 ml Output Total 2800 ml 1250 ml 700 ml Balance -2180 ml -731 ml -364 ml IV Total 408 ml 459 ml 306 ml Tube Feeding 212 ml 0 ml 0 ml Tube Irrigant 60 ml 30 ml Output Urine Total 2000 ml 1200 ml 650 ml Stool Total 100 ml 50 ml 0 ml Gastric Drainage Total 700 ml 0 ml 50 ml . Laboratory Tests Test 01/15/17 06:17 White Blood Count 5.7 TH/MM3 Red Blood Count 2.97 MIL/MM3 Hemoglobin 8.1 GM/DL Hematocrit 25.2 % Mean Corpuscular Volume 84.8 FL Mean Corpuscular Hemoglobin 27.2 PG Mean Corpuscular Hemoglobin 32.0 % Concent Red Cell Distribution Width 18.8 % Platelet Count 101 TH/MM3 Mean Platelet Volume 9.5 FL Laboratory Tests Test 01/15/17 01/16/17 06:17 04:12 Sodium Level 146 MEQ/L 147 MEQ/L Potassium Level 3.6 MEQ/L 3.5 MEQ/L Chloride Level 102 MEQ/L 104 MEQ/L Carbon Dioxide Level 38.0 MEQ/L 36.1 MEQ/L Anion Gap 6 MEQ/L 7 MEQ/L Blood Urea Nitrogen 47 MG/DL 39 MG/DL Creatinine 1.39 MG/DL 1.28 MG/DL Estimat Glomerular Filtration 51 ML/MIN 56 ML/MIN Rate Random Glucose 172 MG/DL 110 MG/DL Calcium Level 8.8 MG/DL 8.6 MG/DL Phosphorus Level 3.5 MG/DL Magnesium Level 2.6 MG/DL Microbiology Date/Time Procedure Status Source Growth 01/14/17 18:00 Gram Stain - Final Complete Sputum Endotracheal 01/14/17 18:00 Sputum Culture - Final Complete Serratia Marcescens Imaging Last Impressions Chest X-Ray 01/03/17 0600 Signed Impressions: Service Date/Time: Tuesday, January 03, 2017 05:38 - CONCLUSION: 1. Mild bibasilar opacity representing either atelectasis, consolidation, or pleural effusion. 2. Stable enlargement of the cardiac silhouette. Camden Brennan MD Renal Ultrasound 01/01/17 0000 Signed Impressions: Service Date/Time: Sunday, January 01, 2017 09:12 - CONCLUSION: Normal examination. Sushil Abdi Jr., MD Scrotum Ultrasound 12/28/16 1246 Signed Impressions: Service Date/Time: Wednesday, December 28, 2016 14:05 - CONCLUSION: 1. Marked thickening of the scrotal wall, up to 2.4 cm on the right. 2. Small complex left hydrocele. 3. Small complex cysts right testicle. Positive testicular blood flow. Nael Scott MD Abdomen/Pelvis CT 12/28/16 1237 Signed Impressions: Service Date/Time: Wednesday, December 28, 2016 14:52 - CONCLUSION: 1. 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 2. Mild bilateral inguinal adenopathy and marked scrotal wall thickening. 3. Fat-containing 5.7 cm umbilical hernia. 4. Atherosclerotic aorta with some displaced intimal calcifications but without significant aneurysm. No bowel obstruction. Mild ileus. Nael Scott MD Physical Exam GENERAL: Obese, CM patient, in no apparent distress. SKIN: No rashes. HEAD: Atraumatic. Normocephalic. No temporal or scalp tenderness. EYES: Pupils equal round and reactive. Extraocular motions intact. No scleral icterus. No injection or drainage. ENT: Intubated NECK: Trachea midline. Supple, nontender, no meningeal signs. CARDIOVASCULAR: Regular rate and rhythm without murmurs, gallops, or rubs. RESPIRATORY: Clear to auscultation. Breath sounds equal bilaterally. GASTROINTESTINAL: Abdomen soft, non-tender, nondistended. Umbilical hernia noted. MUSCULOSKELETAL: Extremities without clubbing, cyanosis, or edema. Scrotal area with erythema noted. Packing noted. Wound well debrided at this point and good granulation tissue. NEUROLOGICAL: Sedated Psych: could not be assessed. IV line sites with no e.o infection. 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 ? Pneumonia. E.faecalis, E.coli and Coag neg staph infection. Pulm edema: on vent Acute resp failure on Vent Acute renal failure: improved. Grp D Enterococcus vs Strep in wound. Gram negative infection in groin. Diabetes Mellitus uncontrolled. H/o recurrent groin area infections. Acute renal failure: prerenal, sepsis. CAD, CABG, s/p defibrillator and pacemaker. EF 20% on ECHO this admit per tech. Recs: DC Unasyn IV. Start Ceftriaxone IV (covers Serratia as well as GNR in groin equivalent to Unasyn IV. Wound well debrided at this point and good granulation tissue. Anaerobic coverage sufficient duration achieved, wound cleared up. Switch from Unasyn to Ceftriaxone will help reduce fluid volume as well.) Check CXR to assess infiltrates if any Check Procalcitonin. Follow cultures Follow clinically. d/w Joan Szymanski MD Jan 16, 2017 17:29
[2017-01-16] MEDS: POTASSIUM CHLOR 40 MEQ PREMIX 100 ML IV PRN (17:37)
[2017-01-16] MEDS: cefTRIAXone INJ 2,000 MG in SODIUM CHLORIDE 0.9% INJ 100 ML IV SCH (18:00)
--- NOTE | 2017-01-16 18:05 | RADRPT ---
EXAM DATE/TIME: 01/16/2017 17:54 [facility] COMPARISON: CHEST SINGLE AP, January 12, 2017, 22:26. INDICATIONS : Patient has been short of breath. MEDICAL HISTORY : Hypertension. Congestive heart failure. Myocardial infarction. CAD SURGICAL HISTORY : Pacemaker. Coronary artery stent. Coronary artery stent. ENCOUNTER: Subsequent ACUITY: 2 weeks PAIN SCORE: Non-responsive. LOCATION: Bilateral chest FINDINGS: Endotracheal tube is present suspect position with tip 6-7 cm above the owen. Nasogastric tube desc ends into the stomach. Left neck central line is stable. Pacemaker device is noted with control pack over the left chest. Hazy perihilar and bilateral basilar parenchymal opacities appear grossly stable . Cardiac contours are unchanged. CONCLUSION: Stable chest appearance Camden Jones MD on January 16, 2017 at 18:02 Board Certified Radiologist. This report was verified electronically.
[2017-01-16] MEDS: ATORVASTATIN 40 MG TAB PO SCH (20:09)
[2017-01-17] VITALS (17 sets, daily range): BP systolic 113–155; BP diastolic 59–80; PULSE 57–78; RESP 12; TEMP 97.8–98.5; O2SAT 96–100
[2017-01-17] MEDS: PROPOFOL 1000 MG/100 ML INJ 100 ML IV SCH ×7 (01:25→22:23)
[2017-01-17] MEDS: INSULIN NovoLIN REGULAR SUPPLEMENTAL SCALE SQ SCH ×4 (01:25→20:00)
[2017-01-17] MEDS: HYDROmorphone HCL PF 1 MG/ML VIAL IV PUSH PRN ×2 (03:00→16:24)
[2017-01-17] MEDS: CHLORHEXIDINE GLUCONATE 2 % 1 PACK (2 CLOTHS) TOP SCH (04:55)
[2017-01-17 05:21] LABS: BICARBONATE 33.9 MEQ/L (21.0-32.0); POTASSIUM 3.4 MEQ/L (3.5-5.1)
[2017-01-17] MEDS: hydrALAZINE HCL 25 MG TAB PO SCH ×3 (05:34→22:23)
[2017-01-17] MEDS: HEPARIN SODIUM - SQ 10,000 UNITS/ML VIAL SQ SCH ×3 (05:34→22:23)
[2017-01-17] MEDS: ISOSORBIDE DINITRATE 10 MG TAB PO SCH ×3 (05:34→22:23)
[2017-01-17] MEDS: POTASSIUM CHLOR 40 MEQ PREMIX 100 ML IV PRN ×2 (05:35→18:16)
[2017-01-17] MEDS: METOCLOPRAMIDE HCL 10 MG/2 ML VIAL IV PUSH SCH ×3 (05:35→22:23)
[2017-01-17] MEDS: RESP: BUDESONIDE 0.5 MG/2 ML NEB NEB SCH ×2 (07:35→20:59)
[2017-01-17] MEDS: CHLORHEXIDINE 0.12% (ORAL KIT) 15 ML CUP MT SCH ×2 (08:00→20:27)
--- NOTE | 2017-01-17 08:01 | HHI.CCPN ---
Subjective Remarks/Hospital Course 71-year-old male presents for evaluation of testicular swelling. Approximately 10 days ago he was started on Aldactone for his blood pressure which. He also noted that her sugars has been slightly elevated. Denies any fevers. He has been feeling generally weak as well. Denied abdominal pain nausea vomiting or diarrhea. He thought the scrotal swelling was from the Aldactone and came into the emergency department to be evaluated. 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 remains intubated overnight. off vasopressors. 12/30: Much more comfortable. Back to OR for washout today. Breathing without distress. STEFFEN improving. Patient has dilated cardiomyopathy with severe systolic heart failure and EF 25-30% by last ECHO 2013. May need low-dose inotrope during course of therapy. 12/30 1800 hrs: Seen after OR today. He has full neck veins and light wheezes with basilar crackles. His underlying LV dysfunction requires that we treat this aggressively with diuretics and subsequent electrolyte replacement. Will move back to [facility]. 12/31: Required rapid response for 2nd time in 12 hours. Will need intubation due to severe systolic heart failure and pulmonary edema. 01/01: Afebrile. Remains nothing by mouth for planned washout today. Decreased urine output noted. Hypertensive with sedation vacation. 01/02: Yesterday with washout and debridement without complication. Continues to be in A. fib intermittently rate controlled. Hemodynamically stable. One bowel movement. Will try spontaneous breathing trials today and attempt to extubate. If unsuccessful will initiate tube feeding. 01/03: Tmax 99.2. Episode of desaturation overnight recording FiO2 100%. Currently back to 50%. Chest x-ray essentially stable. Small left pleural effusion. Low lung volumes. Remains in a flutter rate controlled. Imminently bradycardic. 3 bowel movements on 01/02. Tolerating tube feeding. 01/04: FiO2 currently at 50%. We'll check CT chest. Possible need pleural effusions. Remains in a flutter rate control. Intermittently bradycardic. No bowel movement yesterday. Tube feeds currently off for possible extubation but tolerating previously. Afebrile 01/05: Remains on FiO2 of 50%. CT chest revealed small bilateral pleural effusions otherwise unremarkable. Noted is currently rate controlled. No bowel movement. Tube feeds at goal. Afebrile. Intermittently follows commands. Subjective: 01/06: FiO2 40%. Self extubated yesterday. Lasted about 20 Mr. for requiring intubation. Was on 100 percent nonrebreather. Saturations are 90%. During intubation, Ambu bag malfunctioned. Patient was quickly intubated and was arousable moving all 4 extremities prior to re-sedation. We'll attempt sedation vacation again today. 01/07: Remains ventilator dependent, failed extubation yesterday. Unable to wean today, weak. 01/08: Tolerating CPAP trials but unable to extubate. 01/09: Plan transfer to LTAC. 01/10: Continued improvement in renal function. Contraction alkalosis with diuresis. Will require LTAC. 01/11: Will need to get a fair amount of excess water off. Consider gtt. 01/11: Great response to bumex gtt. 01/13: Continue diuresis. Replete electrolytes. Reduce vent rate. 01/14: Diuresed 10 liters net balance. Replace lytes. Correct HCO3 with diamox. Wean vent. 01/15: Despite aggressive diuresis and clearing of CXR he does not tolerate extended SBTs. He will need a tracheostomy if family wishes to pursue aggressive care. 01/16: Serratia in sputum, afebrile. WBC 5600. CXR benign. 01/17: Needs trach for fdc weaning. Need to find family to consent. Objective Vital Signs Date Time Temp Pulse Resp B/P Pulse Ox O2 Delivery O2 Flow Rate FiO2 01/17/17 07:36 98 50 01/17/17 06:00 72 01/17/17 04:00 98.4 12 147/65 01/16/17 19:00 Mechanical Ventilator Intake and Output 01/16/17 01/16/17 01/17/17 08:00 16:00 00:00 Intake Total 336 ml 242 ml 473 ml Output Total 700 ml 1725 ml 625 ml Balance -364 ml -1483 ml -152 ml Result Diagram: 01/15/17 0617 01/17/17 0445 Other Results Microbiology Date/Time Procedure Status Source Growth 01/14/17 18:00 Gram Stain - Final Complete Sputum Endotracheal 01/14/17 18:00 Sputum Culture - Final Complete Serratia Marcescens Imaging Last Impressions Chest X-Ray 01/06/17 0600 Signed Impressions: Service Date/Time: Friday, January 06, 2017 04:21 - CONCLUSION: Cardiomegaly with bilateral pleural effusions and bibasilar infiltrates. The radiographic pattern is most consistent with pulmonary edema. Sushil Abdi Jr., MD Abdomen X-Ray 01/05/17 0000 Signed Impressions: Service Date/Time: Thursday, January 05, 2017 07:23 - CONCLUSION: Nasogastric tube across the GE junction with minimal gaseous distention. Aba Dick MD FACR Chest CT 01/04/17 0000 Signed Impressions: Service Date/Time: Wednesday, January 04, 2017 12:03 - CONCLUSION: 1. Consolidative changes with small bilateral pleural effusions in both bases. 2. Extensive coronary artery calcifications. Aba Dick MD FACR Renal Ultrasound 01/01/17 0000 Signed Impressions: Service Date/Time: Sunday, January 01, 2017 09:12 - CONCLUSION: Normal examination. Sushil Abdi Jr., MD Scrotum Ultrasound 12/28/16 1246 Signed Impressions: Service Date/Time: Wednesday, December 28, 2016 14:05 - CONCLUSION: 1. Marked thickening of the scrotal wall, up to 2.4 cm on the right. 2. Small complex left hydrocele. 3. Small complex cysts right testicle. Positive testicular blood flow. Nael Scott MD Abdomen/Pelvis CT 12/28/16 1237 Signed Impressions: Service Date/Time: Wednesday, December 28, 2016 14:52 - CONCLUSION: 1. 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 2. Mild bilateral inguinal adenopathy and marked scrotal wall thickening. 3. Fat-containing 5.7 cm umbilical hernia. 4. Atherosclerotic aorta with some displaced intimal calcifications but without significant aneurysm. No bowel obstruction. Mild ileus. Nael Scott MD Objective Remarks GENERAL: 71-year-old male SKIN: Warm and dry. HEAD: Normocephalic. EYES: Pupils are 2 mm bilaterally and reactive. NECK: trachea midline. Supple. Orally intubated. CARDIOVASCULAR: Irreg Irreg Intermittently paced. S1, S2 no S4. Without murmur RESPIRATORY: Diminished breath sounds bases. No wheezes. Few scattered rhonchi. Lots of secretions. GASTROINTESTINAL: Abdomen soft, non-tender, obese. Active bowel sounds appreciated. Umbilical hernia remains reducible MUSCULOSKELETAL: Currently with trace to 2+ bilateral lower extremity pitting edema. Foot pulses palpable. : Packing which is clean and dry in the groin. NEURO: Moves all 4 extremities spontaneously. Withdraws to pain. Follows commands intermittently. Very weak. 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 CV: Congestive heart failure/systolic ejection fraction 25% 2013 Limited echo EF 35-40% with akinesis apical myocardium History of CABG 4 Hypertension Dyslipidemia History of single-chamber defibrillator 08/19 due to positive EPS study Holding valsartan 320 mg by mouth daily for hypertension due to acute kidney injury Continue Lipitor 40 mg by mouth daily/home medication for dyslipidemia On Coreg 50 mg by mouth twice a day at home for hypertension - decreased to 25 twice a day yesterday with underlying bradycardia Continue hydralazine 25 3 times a day/Isordil 10 every 8 as adjuvant while creatinine elevated Milrinone was discontinued 01/01 due to dysrhythmias Echo 2013 - EF 25-30%. No regional wall motion abnormality. Left atrium dilated Limited echo 2016 reveals EF 35-40%. Akinesis apical myocardium. Left atrium mild dilatated. Mild MR. At home on Lasix 40 mg by mouth twice a day. 60 milligrams IV Lasix held due to worsening renal function Started Bumex 1 twice a day today attempt to diurese. Continue spironolactone 12.[address] Rob cardiology seen for for underlying atrial flutter. Likely ischemic workup Resp: Acute hypoxemic respiratory failure Ongoing tobaccoism PRVC 14/600/0.85/5/50 Ventilator bundle Bronchodilator therapy every 4 hours and as needed Spontaneous breathing trials today. Adequate weaning parameters however FiO2 50 % Serratia in sputum with copious secretions. GI: Gastroesophageal reflux disease 5.7 cm umbilical hernia Glucerna 1.5 goal 55 cc an hour Pepcid 10 mg twice a day for GI prophylaxis. On Prilosec 20 mg by mouth daily at home Colace/senna twice a day for bowel regimen Umbilical hernia seen on CT is reducible. increase levemir to bid : Becca's gangrene BPH Postop for Becca's gangrene/ necrotizing fasciitis posterior scrotum, perineum and right perirectal tissue Postop washout and debridement for his gangrene Postoperative washout and debridement. 12/28 revealed gas in his perineum/scrotum and the right gluteal cleft. Followed by urology/Dr. Ling Perineal wound with considerable drainage. Endo: Diabetes mellitus Gout Holding Tanzeum 50 mg subcutaneous weekly. Holding allopurinol 200 mg by mouth daily for gout Sliding scale insulin with Accu-Cheks every 6 hours to maintain euglycemia. 8 units of sliding scale insulin past 24 hours and started on Levemir 5 daily -> BID Renal: Acute kidney injury - baseline creatinine 1.[address] revealed no signs of hydronephrosis. Urine eosinophils negative. Renal ultrasound revealed no hydronephrosis Creatinine currently 1.5 and downward trending. No indications for hemodialysis at this point. Heme: Normocytic anemia Leukocytosis Daily CBC. Monitor trends Transfuse 2 units PRBCs during this hospital stay. No current indication for transfusion of blood proximally at this time. ID: Becca's gangrene Group A beta strep UTI Unasyn 1.5 IV every 6 hours Clindamycin 300 mg by mouth every 6 hours completed 01/02 Zyvox day Pertinent cultures Sputum 01/14 - Serratia Sputum - 12/31 -no growth Abdomen abscess - 12/28 - Escherichia coli, E faecalis and coag negative staph Abdomen abscess - 12/28 - acid-fast bacilli/fungus negative Blood cultures 2 - 12/28 - no growth Urine culture - 12/28 -group A beta strep Infectious disease consulted. FEN: Hyper-magnesium Hypokalemia - resolved Hypernatremia Replace electrolytes as clinically indicated MSK: PT/OT evaluate and treat Access - Right IJ CVL day #10 placed 12/31 -> d/c - Left radial arterial line day #11 placed 12/31 -Left IJ CVL 01/11 #5 Prophylaxis - GI - Pepcid - DVT - SCD/heparin subcutaneous Overall impression: Remains very weak, restricted by chronic poor cardiac function. Will need tracheostomy if we are to pursue continued aggressive care. Need to find family to consent. Roshan Carlos MD Jan 17, 2017 08:01
[2017-01-17] MEDS: SPIRONOLACTONE 25 MG TAB PO SCH (08:36)
[2017-01-17] MEDS: FAMOTIDINE 20 MG TAB PO SCH ×2 (08:36→20:26)
[2017-01-17] MEDS: DOCUSATE SODIUM 100 MG/10 ML UDC G-TUBE SCH ×2 (08:36→20:26)
[2017-01-17] MEDS: CARVEDILOL 12.5 MG TAB PO SCH ×2 (08:37→20:26)
[2017-01-17] MEDS: SENNOSIDES SYRUP 8.8 MG/5 ML CUP PO SCH ×2 (08:37→20:26)
[2017-01-17] MEDS: INSULIN DETEMIR 100 UNITS/ML VIAL SQ SCH ×2 (08:37→22:18)
[2017-01-17] MEDS: FUROSEMIDE 40 MG/4 ML VIAL IV PUSH SCH (08:38)
[2017-01-17] MEDS: SODIUM CHLORIDE 0.9% FLUSH 10 ML FLUSH SCH ×2 (08:40→20:27)
[2017-01-17] MEDS: ARTIFICIAL TEARS OPTH SOLN 15 ML BTL EACH EYE SCH ×3 (08:46→16:34)
--- NOTE | 2017-01-17 11:27 | PD.CONS ---
Consult Service Palliative Care . Consult Requested By Dr. Laney Woods . Primary Care Physician [facility] . Reason for Consultation a. To assist with evaluation and management of symptoms including: b. To assist medical decision maker(s) with: better understanding of current medical conditions; weighing benefits/burdens of medical treatment options; making medical treatment decisions. HPI History of Present Illness Mr. Mandel is a 71 y/o male with a known history of coronary artery disease status post CABG; hyperlipidemia; congestive heart failure with pacemaker/ defibrillator implantation; diabetes mellitus; gout; BPH; hypertension; PTSD; and peripheral neuropathy who presented to the [facility] Emergency Department on 12/28/16 for evaluation of scrotal swelling. The patient reported on presentation that he started a new medicationAldactonefor his hypertension. He also reported that his blood sugars were running higherhe would normally be around 1:30 to 140 and had recently been running in the 190s. The patient also reported feeling weak, decreased oral intake, and some decreased urine output over time. He denied fevers, abdominal pain, nausea, vomiting, diarrhea. In the emergency department initial vital signs showed a temperature of 99.8; pulse 99; respiratory rate 16; blood pressure 125/64; pulse oximetry 92% on room air Physical exam by the emergency end finder twisting department revealed the following: Patient was in no apparent distress and appeared well-nourished. There is some generalized scrotal swelling but also some erythema which was felt to be possibly consistent with abscess. There is erythema and apparent cellulitis surrounding the perineum as well as the right gluteal area. The remainder of the exam was unremarkable. Initial diagnostic testing revealed the following: * CBC showed WBC 17.2; hemoglobin 11.6; platelet count 133 * ESR was 67 * Coagulation profile showed PT 11.9; INR 1.1; PTT 30.1 * Chemistry profile was remarkable for a BUN 56; creatinine 3.62; GFR 17; glucose 187 * Lactic acid was 2 * Liver function tests were unremarkable except for an albumin of 2.6 * C reactive protein was 33 * Lipase was 60 * Urinalysis was remarkable for negative nitrites; small leukocyte esterase; few WBC clumps; rare bacteria * EKG showed atrial fibrillation without evidence of ischemia The ER physician was concerned about Becca's gangrene/cellulitis/sepsis. 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 Dr. 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 He recommended operative treatment for debridement and washout and the patient agreed. The patient underwent incision and drainage of the posterior scrotal region; perineum; and right dea- rectal tissue on 12/28/[address] Ling and Dr. Tapia. Postoperatively, critical care was consulted and the patient was taken to the intensive care unit. He remained intubated and mechanically ventilated but began to improve. He was able to come off pressor support on . He appeared much more comfortable on 12/30 and went back to the operating room for a washout. His kidney function appeared to be improving. Unfortunately, after returning from the operating room he was noted to have full neck veins, wheezes, and basilar crackles. The clinical exam plus knowledge of his echocardiogram from 2013 showing an ejection fraction of 25-30 % suggested decompensation of his cardiomyopathy. With the need for aggressive diuretic therapy and electrolyte replacement he was sent back to the surgical intensive care unit. He required reintubation and mechanical ventilation. In addition to his initial surgery, the patient has had "washouts" of the wound on 12/30 and 01/01. The patient's heart failure and respiratory status have been problematic. He has had pleural effusions and bibasilar infiltrates but in spite of aggressive diuresis and clearing of his chest x-ray he has been unable to tolerate spontaneous breathing trials. The intensivists believe he will need a tracheostomy if there is a desire to pursue aggressive care. The patient is currently incapacitated to make his own health care decisions and there are currently no appointed decision makers. Patient has remained afebrile for several days. Urine output has been good and patient has been in negative fluid balance for the last several days. He has been hemodynamically stable. Renal function is improved so creatinine is now down to 1.2 to; GFR up to 59. Wound cultures from 12/28 grew out Enterococcus faecalis and coag negative staph. On 01/14/17 sputum grew out Serratia. Hydromorphone 1 mg IV is available for pain. Patient is averaging one dose per day. Nurses are administering this for nonverbal signs of pain such as grimacing/tears/frowning. . Review of Systems ROS Limitations: Clinical Condition, Intubated Constitutional: COMPLAINS OF: Fatigue, Fever, Pain (Neuropathic pain), Generalized weakness Endocrine: DENIES: Polydipsia, Polyuria, Polyphagia Eyes: DENIES: Blurred vision, Eye pain, Vision loss Ears, nose, mouth, throat: DENIES: Hearing loss, Vertigo, Nasal discharge, Oral lesions, Throat pain, Hoarseness Respiratory: COMPLAINS OF: Shortness of breath, DENIES: Apneas, Cough, Snoring , Wheezing, Hemoptysis Cardiovascular: COMPLAINS OF: Dyspnea on Exertion, DENIES: Palpitations, Syncope Gastrointestinal: DENIES: Abdominal pain, Black stools, Bloody stools, Constipation, Diarrhea, Nausea, Vomiting Genitourinary: COMPLAINS OF: Testicular Pain, Testicular Swelling, Hesitancy, Decreased stream, DENIES: Urinary frequency, Urinary incontinence, Hematuria, Dysuria Musculoskeletal: COMPLAINS OF: Joint pain (with gout attack), DENIES: Muscle aches, Neck pain Integumentary: DENIES: Nodules Hematologic/Lymphatics: DENIES: Bruising, Lymphadenopathy Immunologic/Allergic: DENIES: Urticaria Neurologic: DENIES: Headache, Localized weakness, Paresthesias, Seizures, Tremor Psychiatric: COMPLAINS OF: Anxiety, Depression, DENIES: Confusion, Hallucinations Past Family Social History Coded Allergies: No Known Allergies (Verified , 12/28/16) Past Medical History Hypertension Diabetes mellitus Dyslipidemia Obesity Chronic tobacco use disorder Coronary artery disease status post myocardial infarction and CABG (2000) Chronic kidney disease CHF with EF 40% BPH Gout PTSD Agent Witten exposure Colonic polyps Neuropathy Vit B12 deficiency . . Past Surgical History CABG (4 vessels) Coronary artery angiogram Pacemaker insertion. I&D of dea-rectal abscess on 12/28/16 . Reported Medications Prehospital medications included the following: Valsartan 320 Mg Tab 320 Mg PO DAILY Omeprazole 20 Mg Tab 20 Mg PO DAILY Furosemide 40 Mg Tab 60 Mg PO BID Cyanocobalamin Inj (Cyanocobalamin) 1,000 Mcg/Ml Inj 1,000 Mcg IM Q30D Carvedilol 25 Mg Tab 50 Mg PO BID Atorvastatin (Atorvastatin Calcium) 40 Mg Tab 40 Mg PO HS Allopurinol 100 Mg Tab 200 Mg PO DAILY Tanzeum 4-Pack Inj (Albiglutide) 50 Mg Pfpen 50 Mg SQ Q7D Spironolactone 25 Mg Tab 12.5 Mg PO DAILY . Current Medications Medications (Trade) Dose Ordered Sig/Abdiel Route Start Time Stop Time Status Last Admin (NS Flush) 2 ml UNSCH PRN .XX 12/28/16 20:15 (NS Flush) 2 ml BID .XX 12/28/16 21:00 01/17/17 08:40 (Tylenol) 650 mg Q6H PRN PO 12/28/16 20:15 01/09/17 20:08 (Tears Naturale Opth Soln) 1 drop TID EACH EYE 12/29/16 09:00 01/17/17 08:46 (Zofran Inj) 4 mg Q6H PRN IV 12/28/16 20:15 (Colace Liq) 100 mg Q12H G-TUBE 12/28/16 21:00 01/17/17 08:36 (Heparin Inj) 5,000 units Q8H SQ 12/28/16 22:00 01/17/17 05:34 Miscellaneous Information 1 Q361D XX 12/28/16 20:15 12/29/16 00:29 (Chlorhexidine 2% Cloth) 3 pack Taper DAILY@04 TOP 12/29/16 04:00 12/25/17 03:59 01/17/17 04:55 (Chlorhexidine 2% Cloth) 3 pack UNSCH PRN TOP 12/28/16 20:15 (D50w (Vial) Inj) 25 ml UNSCH PRN IV PUSH 12/29/16 07:15 (Roxicodone) 5 mg Q4H PRN PO 12/29/16 15:00 01/13/17 03:14 (Lipitor) 40 mg HS PO 12/30/16 21:00 01/16/17 20:09 (Aldactone) 12.5 mg DAILY PO 12/31/16 09:00 01/17/17 08:36 (Pill Splitter) 1 ea UNSCH PRN OTHER 12/30/16 12:15 Chlorhexidine Gluconate 15 ml 15 ml BID@08,20 MT 12/31/16 20:00 01/17/17 08:00 (Diprivan 1000 Mg/100ml Inj) 100 ml @ 0 mls/hr TITRATE IV 12/31/16 16:00 01/17/17 08:45 (Trandate Inj) 10 mg Q1HR PRN IV PUSH 01/02/17 08:00 01/14/17 09:08 (Apresoline Inj) 10 mg Q1HR PRN IV PUSH 01/02/17 08:00 01/16/17 01:22 (Nitroglycerin 2% Oint) 2 inch Q6HR PRN TOPICAL 01/02/17 08:00 01/02/17 08:44 (Dilaudid Pf Inj) 1 mg Q2H PRN IV PUSH 01/02/17 16:00 01/17/17 03:00 (Coreg) 25 mg BID PO 01/03/17 09:00 01/17/17 08:37 (Senna Liq) 8.8 mg BID PO 01/03/17 09:00 01/17/17 08:37 (Apresoline) 25 mg Q8HR PO 01/03/17 06:30 01/17/17 05:34 (Isordil) 10 mg Q8HR PO 01/03/17 06:30 01/17/17 05:34 (Glycerin Adult Supp) 2 gm BID PRN RECTAL 01/04/17 21:00 (Reglan Inj) 5 mg Q8HR IV PUSH 01/05/17 06:30 01/17/17 05:35 Insulin Detemir 8 units 8 units Q12H SQ 01/11/17 09:00 01/17/17 08:37 Potassium Chloride 100 ml @ 50 mls/hr Q2H PRN IV 01/12/17 09:00 Potassium Chloride 100 ml @ 50 mls/hr Q2H PRN IV 01/12/17 09:00 Potassium Chloride 100 ml @ 25 mls/hr UNSCH PRN IV 01/12/17 09:00 01/17/17 05:35 Potassium Chloride 100 ml @ 50 mls/hr Q2H PRN IV 01/12/17 09:00 (Magnesium Sulfate Inj/NS Inj) 100 ml @ 50 mls/hr UNSCH PRN IV 01/12/17 09:00 Magnesium Oxide 800 mg 800 mg UNSCH PRN PO 01/12/17 09:00 (Magnesium Sulfate Inj/NS Inj) 100 ml @ 50 mls/hr UNSCH PRN IV 01/12/17 09:00 Potassium Phosphate 2000 mg 2,000 mg Q4H PRN PO 01/12/17 09:00 (Sodium Phosphate Inj/NS 250 ml Inj) 250 ml @ 42 mls/hr UNSCH PRN IV 01/12/17 09:00 Potassium Phosphate 2000 mg 2,000 mg UNSCH PRN PO/TUBE 01/12/17 09:00 (Potassium Phosphate Inj/NS 250 ml Inj) 260 ml @ 42 mls/hr UNSCH PRN IV 01/12/17 09:00 (NovoLIN R SUPPLEMENTAL SCALE) 1 Q6H SQ 01/13/17 14:00 01/15/17 08:08 (Pepcid) 10 mg BID PO 01/14/17 21:00 01/17/17 08:36 Furosemide 40 mg 40 mg DAILY IV PUSH 01/15/17 10:00 01/17/17 08:38 (Rocephin Inj/NS Inj) 100 ml @ 200 mls/hr Q24H IV 01/16/17 18:00 01/16/17 18:00 Family History * Father at approximately age 81 from complications of dementia * Patient's mother is alive with multiple medical complications including heart disease and gallbladder disease. Mother is currently under hospice care. * One brother is from a myocardial infarction. . Substance Use Tobacco: Patient normally smokes approximately one pack per day. Alcohol: No known history of alcohol abuse. Prescription med abuse: No known prescription drug abuse. Illicits: No known use of illicits. . Psychosocial History The patient is originally from [place]. He has lived in [place] for approximately 25 years. The patient is a [place] and suffered both Agent Witten exposure and PTSD.\\ The patient is a graduate of [employer] in [place]. He was employed by the [employer] for many years. He has been on disability for many years and has not been able to work. The patient was once. He in the is now . The patient has one son -- Dell Mandel . There are no other children. Dell cannot be contacted by her medical team or by his family. The patient's mother and stepfather live locally. The patient's mother is currently under hospice care. . Spiritual/Cultural Factors The patient self identifies as Congregation but his family tells me that episcopal/ spirituality have not played an important role in his life. . Living Will: Never completed Health Care Surrogate: Never completed Durable Power of Mechanics Handyman: Never completed Date completed: I checked with the patient's family and with the primary care physician. It does not appear the patient has never completed an advanced directive. . Health Care Surrogate(s): There has never been designation of a health care surrogate. Documented care wishes: There is never been written documentation of health care goals/preferences. . Today's verbally stated goals: Patient is unable to verbally state his own health care preferences. It is unclear if he will ever regain capacity to do so. . Family/friends goals: The patient's mother, his closest available family member, just says, "just do what is best for him." . Ethical and Legal Issues Patient is currently incapacitated to make his own health care decisions. It is unclear if he will ever regain capacity to do so. There is no designated health care surrogate. . Physical Exam Vital Signs Date Time Temp Pulse Resp B/P Pulse Ox O2 Delivery O2 Flow Rate FiO2 01/17/17 07:36 98 50 01/17/17 06:00 72 01/17/17 04:00 57 01/17/17 04:00 40 01/17/17 04:00 98.4 64 12 147/65 98 01/17/17 03:52 98 40 01/17/17 03:30 14 01/17/17 02:00 62 01/17/17 00:02 98 40 01/17/17 00:00 98.5 62 12 145/65 99 01/17/17 00:00 40 01/17/17 00:00 62 01/16/17 22:00 67 01/16/17 20:26 97 40 01/16/17 20:00 81 01/16/17 20:00 40 01/16/17 20:00 98.4 81 12 153/76 96 01/16/17 19:00 96 Mechanical Ventilator 40 01/16/17 18:14 73 01/16/17 16:00 68 17 134/62 98 01/16/17 16:00 59 01/16/17 15:37 94 40 01/16/17 14:00 40 01/16/17 14:00 68 01/16/17 14:00 98.1 84 155/125 98 01/16/17 14:00 68 01/16/17 13:00 92 01/16/17 13:00 82 01/16/17 12:00 98.2 78 01/16/17 12:00 84 01/16/17 10:56 100 40 . 01/16/17 01/17/17 19:00 07:00 Intake Total 242 ml 750 ml Output Total 1725 ml 1175 ml Balance -1483 ml -425 ml IV Total 242 ml 630 ml Tube Feeding 0 ml Tube Irrigant 120 ml Output Urine Total 1350 ml 875 ml Stool Total 0 ml 50 ml Gastric Drainage Total 375 ml 250 ml . Exam CONSTITUTIONAL/GENERAL: This is an adequately nourished patient, in no apparent distress. TUBES/LINES/DRAINS: Peripheral IVs; left subclavian central line; rectal tube; Capps catheter; orotracheal tube; orogastric tube; soft wrist restraints; SCDs SKIN: No jaundice, rashes, or lesions. There is a clean dry dressing over the surgical wound. The wound was not examined by me. Skin temperature appropriate. Not diaphoretic. HEAD: Atraumatic. Normocephalic. EYES: Pupils equal and round and reactive. Could not assess extraocular movements. No scleral icterus. No injection or drainage. Fundi not examined. ENT: Unable to assess hearing. Nose without bleeding or purulent drainage. Throat without visible erythema, exudates, masses, or lesions. NECK: Trachea midline. Supple, nontender. Neck is quite obese and difficult to examine for thyroid enlargement or adenopathy. CARDIOVASCULAR: Irregular rhythm (monitor showing atrial flutter) without murmurs, gallops, or rubs. No JVD. Peripheral pulses weak. RESPIRATORY/CHEST: Symmetric, unlabored respirations. Breath sounds equal bilaterally. Scattered faint rhonchi. No wheezes, rales. GASTROINTESTINAL: Abdomen obese, soft, non-tender, nondistended. No hepato- splenomegaly, or palpable masses. No guarding. Bowel sounds present. GENITOURINARY: Without palpable bladder distension. Capps catheter in place. Scrotal edema is present. MUSCULOSKELETAL: Extremities without clubbing, cyanosis. There is bilateral nonpitting hand edema. No joint tenderness or effusion noted. No calf tenderness. No mottling. LYMPHATICS: No palpable cervical or supraclavicular adenopathy though neck exam is challenging due to a combination of obesity and the intubations. NEUROLOGICAL: Does not awaken to voice or exam. Restless in bed with his eyes closed. Appears to move all extremities. Unable to follow commands. PSYCHIATRIC: Difficult to assess due to level of responsiveness. . Diagnostic Tests Laboratory Laboratory Tests Test 01/15/17 01/15/17 01/16/17 01/17/17 06:17 13:00 04:12 01:12 White Blood Count 5.7 TH/MM3 (4.0-11.0) Red Blood Count 2.97 MIL/MM3 (4.50-5.90) Hemoglobin 8.1 GM/DL (13.0-17.0) Hematocrit 25.2 % (39.0-51.0) Mean Corpuscular Volume 84.8 FL (80.0-100.0) Mean Corpuscular Hemoglobin 27.2 PG (27.0-34.0) Mean Corpuscular Hemoglobin 32.0 % Concent (32.0-36.0) Red Cell Distribution Width 18.8 % (11.6-17.2) Platelet Count 101 TH/MM3 (150-450) Mean Platelet Volume 9.5 FL (7.0-11.0) Sodium Level 146 MEQ/L 147 MEQ/L (136-145) (136-145) Potassium Level 3.6 MEQ/L 3.5 MEQ/L (3.5-5.1) (3.5-5.1) Chloride Level 102 MEQ/L 104 MEQ/L (98-107) (98-107) Carbon Dioxide Level 38.0 MEQ/L 36.1 MEQ/L (21.0-32.0) (21.0-32.0) Anion Gap 6 MEQ/L (5-15) 7 MEQ/L (5-15) Blood Urea Nitrogen 47 MG/DL (7-18) 39 MG/DL (7-18) Creatinine 1.39 MG/DL 1.28 MG/DL (0.60-1.30) (0.60-1.30) Estimat Glomerular Filtration 51 ML/MIN (>89) 56 ML/MIN (>89) Rate Random Glucose 172 MG/DL 110 MG/DL (74-106) (74-106) Calcium Level 8.8 MG/DL 8.6 MG/DL (8.5-10.1) (8.5-10.1) Phosphorus Level 3.5 MG/DL (2.5-4.9) Magnesium Level 2.6 MG/DL (1.5-2.5) Prothrombin Time 11.5 SEC (9.8-11.6) Prothromb Time International 1.0 RATIO Ratio Activated Partial 27.6 SEC Thromboplast Time (24.3-30.1) Procalcitonin 0.12 ng/mL (0.00-0.50) Test 01/17/17 04:45 Sodium Level 147 MEQ/L (136-145) Potassium Level 3.4 MEQ/L (3.5-5.1) Chloride Level 105 MEQ/L (98-107) Carbon Dioxide Level 33.9 MEQ/L (21.0-32.0) Anion Gap 8 MEQ/L (5-15) Blood Urea Nitrogen 36 MG/DL (7-18) Creatinine 1.22 MG/DL (0.60-1.30) Estimat Glomerular Filtration 59 ML/MIN (>89) Rate Random Glucose 102 MG/DL (74-106) Calcium Level 8.3 MG/DL (8.5-10.1) . Result Diagram: 01/15/17 0617 01/17/17 0445 Microbiology Microbiology Date/Time Procedure Status Source Growth 01/14/17 18:00 Gram Stain - Final Complete Sputum Endotracheal 01/14/17 18:00 Sputum Culture - Final Complete Serratia Marcescens . Imaging Last Impressions Chest X-Ray 01/16/17 0000 Signed Impressions: Service Date/Time: January 17:54 - CONCLUSION: Stable chest appearance Camden Jones MD Abdomen X-Ray 01/05/17 0000 Signed Impressions: Service Date/Time: Thursday, January 05, 2017 07:23 - CONCLUSION: Nasogastric tube across the GE junction with minimal gaseous distention. Aba Dick MD FACR Chest CT 01/04/17 0000 Signed Impressions: Service Date/Time: Wednesday, January 04, 2017 12:03 - CONCLUSION: 1. Consolidative changes with small bilateral pleural effusions in both bases. 2. Extensive coronary artery calcifications. Aba Dick MD FACR Renal Ultrasound 01/01/17 0000 Signed Impressions: Service Date/Time: Sunday, January 01, 2017 09:12 - CONCLUSION: Normal examination. Sushil Abdi Jr., MD Scrotum Ultrasound 12/28/16 1246 Signed Impressions: Service Date/Time: Wednesday, December 28, 2016 14:05 - CONCLUSION: 1. Marked thickening of the scrotal wall, up to 2.4 cm on the right. 2. Small complex left hydrocele. 3. Small complex cysts right testicle. Positive testicular blood flow. Nael Scott MD Abdomen/Pelvis CT 12/28/16 1237 Signed Impressions: Service Date/Time: Wednesday, December 28, 2016 14:52 - CONCLUSION: 1. 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 2. Mild bilateral inguinal adenopathy and marked scrotal wall thickening. 3. Fat-containing 5.7 cm umbilical hernia. 4. Atherosclerotic aorta with some displaced intimal calcifications but without significant aneurysm. No bowel obstruction. Mild ileus. Nael Scott MD . Procedures * Central line placement. * I&D scrotal/perineal wound * Washout and debridement of wound * Intubation/mechanical ventilation . Patient/Family Conference Present at Family Conference: Stepfather; mother. . Family Conference Time (mins): 35 Family Conference Location: Telephone Issues Discussed: * Palliative care role, purpose, approach * Additional medical, psychosocial, and spiritual history * Patients general health, functional status, and cognitive changes in the months leading up to the current hospitalization * Family understanding of the current medical problems * Family understanding of prognosis * Patients goals of care as best understood from conversations and/or values * Current medical treatment options and benefits/burdens of those options * Questions answered to the best of my ability * Palliative care contact information provided . Assessment and Plan Disease Oriented Problem List: (1) Becca gangrene (2) Necrotizing fasciitis (3) Sepsis (4) Congestive heart failure Comment: EF 40% (5) STEFFEN (acute kidney injury) (6) Atrial flutter (7) Hospital-acquired pneumonia Comment: Sputum grew out Serratia on 01/14/17 . (8) Coronary artery disease (9) Diabetes mellitus (10) Neuropathy Comment: Probably from his DM . (11) GERD (gastroesophageal reflux disease) (12) Hypertension (13) Obesity (14) PTSD (post-traumatic stress disorder) (15) History of colonic polyps (16) B12 deficiency (17) Agent orange exposure (18) AICD (automatic cardioverter/defibrillator) present (19) S/P CABG x 3 Symptom Scale: (1) Pain 0-10 Scale: Unable to quantify Comment: Unclear if patient had any significant pain prior to development of his abscess. No known use of opiate analgesics. Possible current sources of pain would include postoperative pain; prolonged bedbound status; rectal tube; Capps catheter; soft restraints; vascular access lines; orotracheal and orogastric intubation's. . (2) Dyspnea 0-10 Scale: Unable to quantify Comment: Patient's dyspnea probably secondary to a combination of congestive heart failure and pneumonia. . (3) Encephalopathy 0-10 Scale: Unable to quantify Pertinent Non-Medical Issues Psychosocial: Patient has a mother and stepfather who live locally. Patient's mother is currently enrolled with hospice. The patient has one surviving brother. There is a sonNeil-- who, according to the stepfather, is having lots of legal troubles and is difficult to locate. Spiritual: Shinto and spirituality have not played an important role in the patient's life. Legal: No known advance directives. Unless we can find the patient's son, mother would serve as the proxy decision-maker per the [place] statutes hierarchy. Ethical issues impacting care: Patient is currently incapacitated to make his own health care decisions. It remains feasible that we can improve things enough to have him regain capacity. . Important Contacts * Anahi Mandel (mother ) [phone] * Camden White (stepfater) [phone] * Dell Mandel (son) : none of the phone numbers for Dell available to us are working. Family says that are rarely able to communicate with the son. . Prognosis Mr. Mandel is on 100% disability for combination of his physical and mental health issues. He was driving and taking care of his ADLs and walking without any type of assistive device until this recent episode. The patient has a number of significant comorbidities. He has coronary artery disease status post CABG in 2013 and an ejection fraction of 40% with a history of congestive heart failure. He has diabetes, obesity, and is a long-term smoker. His decompensated heart failure seems to be the most prominent problem preventing him from improving here in the hospital. The sheet metal lay out worker believes that although ICU and hospital survival remain possible for this individual, it will be a slow recovery and he will likely need tracheostomy before he can be weaned successfully. . Code Status: Full Code Plan == Code Status: FULL CODE == Decision Making: The patient is currently incapacitated to make his own health care decisions. It is not known if and when he will acquire capacity to do so. As there is no legal spouse, the patient's adult childNeilwould normally become the proxy decision-maker. We have no working contact numbers for Dell and the patient's mother and stepfather tell us they are unable to contact him. They say he is having legal troubles and can be hard to find. If we are unable to contact Dell, the patient's motherAnahi Mandel-- would be next in line for proxy. She has been accepting this role. Unfortunately, she is ill, herself, and enrolled with hospice. If the patient's mother becomes unable or unwilling to be the health care decision-maker for our patient, it would next fall to his surviving brother. Summarizing: * It appears the patient never completed an advanced directive stating his own health care wishes or designating a health care surrogate. It also appears he never had conversations with loved ones regarding his health care goals/ preferences. * If the patient's son, Dell Mandel, becomes available, he would be the appropriate health care proxy. * The patient's motherDelshimonwould be appropriate proxy decision-maker at such times that sonNeilis not available. As we have been totally unable to contact Dell via any of our available phone numbers, mother is currently the proxy decision-maker. * If Dell Mandel (son) shows, and then opts out of decision-making, then the patient's mother would serve as proxy. She has indicated her willingness to do so but finds it very hard to come up to the hospital. She is also quite ill and under hospice care herself. It is hard to tell in conversations with her if she has a good grasp for how ill the patient is. * If the patient's mother becomes no longer interested in serving as health care proxy, then it would fall to the patient's brother who is accessible. Given the patient never completed an advance directive or spoke about his health care goals/preferences the assumption would be that the patient wants aggressive care unless one of the proxy decision-maker's has information that would make us think otherwise. If the sheet metal lay out worker feels that tracheostomy is necessary at this time for ongoing aggressive care, unless the patient's mother changes her mind, I would go forward with that plan. * == Goals of medical treatment; the patient is unable to directly state his goals and we have no written documentation of any living will or other advanced directive. The patient's mother, currently serving as his decision-maker does not seem to have a full understanding of the patient's condition and she is enrolled in hospice and is finding it difficult to come in to see the patient. After a rather long discussion on the telephone, I ask her what would her son want under the circumstances. She just tells me, "just do the best thing for him." I cannot get a good response from the mother regarding "code status." Therefore, the patient will remain FULL CODE. == I have personally spoken to the patient's primary physician at the [facility] -- Aimee Henson MD. Dr. Henson reviewed the patient's problem list with me and was able to let me know the patient did not have a living will or designated health care surrogate on file with them. The patient was provided with the appropriate forms and counseled on at least 2 occasions but he never completed the documents. == I have discussed the case with Dr. Shine patient's sheet metal lay out worker. == Pain: Possible causes of pain noted above. Patient is unable to qualify or quantify pain at this point in time. There are currently orders for oral oxycodone and parenteral hydromorphone. These are being used infrequently and appear adequate. No further recommendations at this time. == Dyspnea: Dyspnea currently being controlled by the ventilator. The sheet metal lay out worker believes that weaning will be a long process and patient will probably do better with a tracheostomy soon. No further recommendations at this time.= = Encephalopathy: Patient withdraws to noxious stimuli and has some spontaneous movements. Does not wake up and cannot follow commands. This is probably multifactorial. He may have a hypoactive delirium. There is probably a metabolic component. He does not appear to be over sedated from medication. == Palliative care will continue to follow to assist with symptom management and to further clarify goals of medical treatment as the clinical course evolves. . Time Spent Total Floor Time (mins): 80 (Total floor time included chart review, patient examination, collaboration with primary nurse, discussion with sheet metal lay out worker, telephone call to [facility], telephone conversation with patient' s primary care physician, and above-referenced telephone conversation with the patient's mother and stepfather. I also attempted several phone calls to numbers we have for the patient's son.) Face to Face Time (mins): 10 >50% Counseling/Coord of Care: Yes Thank you for the opportunity to participate in the care of Mr. Mandel. . Attestation To help prompt me to consider important information that might be impacting today's encounter and assessment, information from prior notes written by myself or my colleagues may have been "brought forward" into today's note. My signature on this note, however, is an attestation that I personally performed the exam, history, and/or decision-making noted today, and, unless otherwise indicated, the interactions with patient, family, and staff as well as the review of records all occurred today. I also attest that the listed assessment and stated plan reflect my best clinical judgment today based on the combination of historical information, prior notes, and today's exam/ interactions. When time spent is documented, it refers only to time spent today by the signer, or if indicated, combined time spent today by collaborating physician/nurse practitioner. . Manny Gutierrez MD Jan 17, 2017 11:27
--- NOTE | 2017-01-17 11:31 | HHI.PR ---
Subjective Patient symptoms today Pt seen and examined. Dressing changed and intact. Intubated and sedated. Objective Vital Signs Vital Signs Date Time Temp Pulse Resp B/P Pulse Ox O2 Delivery O2 Flow Rate FiO2 01/17/17 08:00 61 01/17/17 08:00 97.8 61 12 140/76 97 01/17/17 08:00 70 01/17/17 07:36 98 50 01/17/17 07:00 98 Mechanical Ventilator 70 01/17/17 06:00 72 01/17/17 04:00 57 01/17/17 04:00 40 01/17/17 04:00 98.4 64 12 147/65 98 01/17/17 03:52 98 40 01/17/17 03:30 14 01/17/17 02:00 62 01/17/17 00:02 98 40 01/17/17 00:00 98.5 62 12 145/65 99 01/17/17 00:00 40 01/17/17 00:00 62 01/16/17 22:00 67 01/16/17 20:26 97 40 01/16/17 20:00 81 01/16/17 20:00 40 01/16/17 20:00 98.4 81 12 153/76 96 01/16/17 19:00 96 Mechanical Ventilator 40 01/16/17 18:14 73 01/16/17 16:00 68 17 134/62 98 01/16/17 16:00 59 01/16/17 15:37 94 40 01/16/17 14:00 40 01/16/17 14:00 68 01/16/17 14:00 98.1 84 155/125 98 01/16/17 14:00 68 01/16/17 13:00 92 01/16/17 13:00 82 01/16/17 12:00 98.2 78 01/16/17 12:00 84 Intake & Output 01/17/17 01/17/17 07:00 19:00 Intake Total 750 ml Output Total 1175 ml Balance -425 ml IV Total 630 ml Tube Irrigant 120 ml Output Urine Total 875 ml Stool Total 50 ml Gastric Drainage Total 250 ml Result Diagram: 01/15/17 0617 01/17/17 0445 Objective Remarks Abd:soft,nt,nd Capps: urine clear Wound: moderate drainage noted. Scrotal erythema improved. 12/30 Abd:soft,nt,nd Capps with clear urine Scrotal erythema improved. 12/31 Abd:soft,nt,nd Capps with clear urine Dressings in place. Ext: neg C/C/E 01/02 Abd:soft,nt,nd Wound: clean with kay drains in place. 01/03 Abd:soft,nt,nd Wound looks clean. Small kay drain removed. 01/06 Abd:soft,nt,nd Drains out 01/07 Abd:soft,nt,nd Wound looks good; healing 01/14 Abd:soft,nt,nd Wound: clean and healing. Wet/Dry dressing changes Leave fecal catch container in place 01/16 Abd:soft,nt,nd Wound: open without packing Fecal device in place 01/17 Abd:soft,nt,nd Wound: open without packing Fecal device in place Medications and IVs Current Medications Medications (Trade) Dose Ordered Sig/Abdiel Route Start Time Stop Time Status Last Admin (NS Flush) 2 ml UNSCH PRN .XX 12/28/16 20:15 (NS Flush) 2 ml BID .XX 12/28/16 21:00 01/17/17 08:40 (Tylenol) 650 mg Q6H PRN PO 12/28/16 20:15 01/09/17 20:08 (Tears Naturale Opth Soln) 1 drop TID EACH EYE 12/29/16 09:00 01/17/17 08:46 (Zofran Inj) 4 mg Q6H PRN IV 12/28/16 20:15 (Colace Liq) 100 mg Q12H G-TUBE 12/28/16 21:00 01/17/17 08:36 (Heparin Inj) 5,000 units Q8H SQ 12/28/16 22:00 01/17/17 05:34 Miscellaneous Information 1 Q361D XX 12/28/16 20:15 12/29/16 00:29 (Chlorhexidine 2% Cloth) 3 pack Taper DAILY@04 TOP 12/29/16 04:00 12/25/17 03:59 01/17/17 04:55 (Chlorhexidine 2% Cloth) 3 pack UNSCH PRN TOP 12/28/16 20:15 (D50w (Vial) Inj) 25 ml UNSCH PRN IV PUSH 12/29/16 07:15 (Roxicodone) 5 mg Q4H PRN PO 12/29/16 15:00 01/13/17 03:14 (Lipitor) 40 mg HS PO 12/30/16 21:00 01/16/17 20:09 (Aldactone) 12.5 mg DAILY PO 12/31/16 09:00 01/17/17 08:36 (Pill Splitter) 1 ea UNSCH PRN OTHER 12/30/16 12:15 Chlorhexidine Gluconate 15 ml 15 ml BID@08,20 MT 12/31/16 20:00 01/17/17 08:00 (Diprivan 1000 Mg/100ml Inj) 100 ml @ 0 mls/hr TITRATE IV 12/31/16 16:00 01/17/17 08:45 (Trandate Inj) 10 mg Q1HR PRN IV PUSH 01/02/17 08:00 01/14/17 09:08 (Apresoline Inj) 10 mg Q1HR PRN IV PUSH 01/02/17 08:00 01/16/17 01:22 (Nitroglycerin 2% Oint) 2 inch Q6HR PRN TOPICAL 01/02/17 08:00 01/02/17 08:44 (Dilaudid Pf Inj) 1 mg Q2H PRN IV PUSH 01/02/17 16:00 01/17/17 03:00 (Coreg) 25 mg BID PO 01/03/17 09:00 01/17/17 08:37 (Senna Liq) 8.8 mg BID PO 01/03/17 09:00 01/17/17 08:37 (Apresoline) 25 mg Q8HR PO 01/03/17 06:30 01/17/17 05:34 (Isordil) 10 mg Q8HR PO 01/03/17 06:30 01/17/17 05:34 (Glycerin Adult Supp) 2 gm BID PRN RECTAL 01/04/17 21:00 (Reglan Inj) 5 mg Q8HR IV PUSH 01/05/17 06:30 01/17/17 05:35 Insulin Detemir 8 units 8 units Q12H SQ 01/11/17 09:00 01/17/17 08:37 Potassium Chloride 100 ml @ 50 mls/hr Q2H PRN IV 01/12/17 09:00 Potassium Chloride 100 ml @ 50 mls/hr Q2H PRN IV 01/12/17 09:00 Potassium Chloride 100 ml @ 25 mls/hr UNSCH PRN IV 01/12/17 09:00 01/17/17 05:35 Potassium Chloride 100 ml @ 50 mls/hr Q2H PRN IV 01/12/17 09:00 (Magnesium Sulfate Inj/NS Inj) 100 ml @ 50 mls/hr UNSCH PRN IV 01/12/17 09:00 Magnesium Oxide 800 mg 800 mg UNSCH PRN PO 01/12/17 09:00 (Magnesium Sulfate Inj/NS Inj) 100 ml @ 50 mls/hr UNSCH PRN IV 01/12/17 09:00 Potassium Phosphate 2000 mg 2,000 mg Q4H PRN PO 01/12/17 09:00 (Sodium Phosphate Inj/NS 250 ml Inj) 250 ml @ 42 mls/hr UNSCH PRN IV 01/12/17 09:00 Potassium Phosphate 2000 mg 2,000 mg UNSCH PRN PO/TUBE 01/12/17 09:00 (Potassium Phosphate Inj/NS 250 ml Inj) 260 ml @ 42 mls/hr UNSCH PRN IV 01/12/17 09:00 (NovoLIN R SUPPLEMENTAL SCALE) 1 Q6H SQ 01/13/17 14:00 01/15/17 08:08 (Pepcid) 10 mg BID PO 01/14/17 21:00 01/17/17 08:36 Furosemide 40 mg 40 mg DAILY IV PUSH 01/15/17 10:00 01/17/17 08:38 (Rocephin Inj/NS Inj) 100 ml @ 200 mls/hr Q24H IV 01/16/17 18:00 01/16/17 18:00 Assessment and Plan Assessment and Plan 71-year-old male with perineal/rectal abscess; 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 Patient will require IR intervention for debridement with washout. Risk and benefits discussed and patient is willing to proceed. 12/29 71 y.o male s/p debridement and washout of necrotizing fascitis Will plan to return to OR tomorrow for washout NPO after MN 12/30 71 y.o. male s/p debridement with washout of necrotizing fascitis OR today for washout. NPO 12/31 71 y.o. male s/p debridement with washout of necrotizing fascitis For washout with closure tomorrow in OR. NPO 01/02 Stable s/p debridement and washout of necrotizing fascitis Extubate today per SICU attending Will remove kay in a few days. 01/03 Stable s/p debridement and washout of necrotizing fascitis For Bronchoscopy today. Hopeful extubation soon. Will remove kay drains over weekend. 01/06 Stable s/p debridement and washout of necrotizing fascitis with closure Extubate/Trach Void trial when OOB and ambulating 01/07 Stable s/p debridement and washout of necrotizing fascitis with closure Void trial in future Call with questions 01/14 Stable s/p debridement and washout of necrotizing fascitis with closure Will need to leave fecal collection system in place Wet/Dry dressing changes BID 01/16 Stable s/p debridement and washout of necrotizing fascitis with closure Will need to leave fecal collection system in place Wet/Dry dressing changes BID 01/17 Stable s/p debridement and washout of necrotizing fascitis with closure Leave fecal collection system in place Continue with wet/dry dressing changes BID Tim Ling DO Jan 17, 2017 11:31
[2017-01-17] MEDS: cefTRIAXone INJ 2,000 MG in SODIUM CHLORIDE 0.9% INJ 100 ML IV SCH (16:23)
[2017-01-17] MEDS: hydrALAZINE HCL 20 MG/ML VIAL IV PUSH PRN (18:31)
[2017-01-17] MEDS: ATORVASTATIN 40 MG TAB PO SCH (20:26)
[2017-01-18] VITALS (19 sets, daily range): BP systolic 118–181; BP diastolic 57–80; PULSE 56–88; RESP 12–18; TEMP 97.3–98.9; O2SAT 93–100
[2017-01-18] MEDS: hydrALAZINE HCL 20 MG/ML VIAL IV PUSH PRN (01:53)
[2017-01-18] MEDS: INSULIN NovoLIN REGULAR SUPPLEMENTAL SCALE SQ SCH ×4 (02:00→20:00)
[2017-01-18] MEDS: PROPOFOL 1000 MG/100 ML INJ 100 ML IV SCH ×6 (04:58→21:32)
[2017-01-18] MEDS: CHLORHEXIDINE GLUCONATE 2 % 1 PACK (2 CLOTHS) TOP SCH (04:58)
[2017-01-18] MEDS: METOCLOPRAMIDE HCL 10 MG/2 ML VIAL IV PUSH SCH ×3 (05:24→21:39)
[2017-01-18] MEDS: hydrALAZINE HCL 25 MG TAB PO SCH ×3 (05:25→21:39)
[2017-01-18] MEDS: HEPARIN SODIUM - SQ 10,000 UNITS/ML VIAL SQ SCH ×3 (05:25→21:39)
[2017-01-18] MEDS: HYDROmorphone HCL PF 1 MG/ML VIAL IV PUSH PRN (05:25)
[2017-01-18] MEDS: ISOSORBIDE DINITRATE 10 MG TAB PO SCH ×3 (05:25→21:38)
[2017-01-18] MEDS: RESP: BUDESONIDE 0.5 MG/2 ML NEB NEB SCH ×2 (07:35→19:41)
[2017-01-18] MEDS: SODIUM CHLORIDE 0.9% FLUSH 10 ML FLUSH SCH ×2 (09:00→20:22)
--- NOTE | 2017-01-18 09:47 | HHI.CCPN ---
Subjective Remarks/Hospital Course 71-year-old male presents for evaluation of testicular swelling. Approximately 10 days ago he was started on Aldactone for his blood pressure which. He also noted that her sugars has been slightly elevated. Denies any fevers. He has been feeling generally weak as well. Denied abdominal pain nausea vomiting or diarrhea. He thought the scrotal swelling was from the Aldactone and came into the emergency department to be evaluated. 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 remains intubated overnight. off vasopressors. 12/30: Much more comfortable. Back to OR for washout today. Breathing without distress. STEFFEN improving. Patient has dilated cardiomyopathy with severe systolic heart failure and EF 25-30% by last ECHO 2013. May need low-dose inotrope during course of therapy. 12/30 1800 hrs: Seen after OR today. He has full neck veins and light wheezes with basilar crackles. His underlying LV dysfunction requires that we treat this aggressively with diuretics and subsequent electrolyte replacement. Will move back to [facility]. 12/31: Required rapid response for 2nd time in 12 hours. Will need intubation due to severe systolic heart failure and pulmonary edema. 01/01: Afebrile. Remains nothing by mouth for planned washout today. Decreased urine output noted. Hypertensive with sedation vacation. 01/02: Yesterday with washout and debridement without complication. Continues to be in A. fib intermittently rate controlled. Hemodynamically stable. One bowel movement. Will try spontaneous breathing trials today and attempt to extubate. If unsuccessful will initiate tube feeding. 01/03: Tmax 99.2. Episode of desaturation overnight recording FiO2 100%. Currently back to 50%. Chest x-ray essentially stable. Small left pleural effusion. Low lung volumes. Remains in a flutter rate controlled. Imminently bradycardic. 3 bowel movements on 01/02. Tolerating tube feeding. 01/04: FiO2 currently at 50%. We'll check CT chest. Possible need pleural effusions. Remains in a flutter rate control. Intermittently bradycardic. No bowel movement yesterday. Tube feeds currently off for possible extubation but tolerating previously. Afebrile 01/05: Remains on FiO2 of 50%. CT chest revealed small bilateral pleural effusions otherwise unremarkable. Noted is currently rate controlled. No bowel movement. Tube feeds at goal. Afebrile. Intermittently follows commands. Subjective: 01/06: FiO2 40%. Self extubated yesterday. Lasted about 20 Mr. for requiring intubation. Was on 100 percent nonrebreather. Saturations are 90%. During intubation, Ambu bag malfunctioned. Patient was quickly intubated and was arousable moving all 4 extremities prior to re-sedation. We'll attempt sedation vacation again today. 01/07: Remains ventilator dependent, failed extubation yesterday. Unable to wean today, weak. 01/08: Tolerating CPAP trials but unable to extubate. 01/09: Plan transfer to LTAC. 01/10: Continued improvement in renal function. Contraction alkalosis with diuresis. Will require LTAC. 01/11: Will need to get a fair amount of excess water off. Consider gtt. 01/11: Great response to bumex gtt. 01/13: Continue diuresis. Replete electrolytes. Reduce vent rate. 01/14: Diuresed 10 liters net balance. Replace lytes. Correct HCO3 with diamox. Wean vent. 01/15: Despite aggressive diuresis and clearing of CXR he does not tolerate extended SBTs. He will need a tracheostomy if family wishes to pursue aggressive care. 01/16: Serratia in sputum, afebrile. WBC 5600. CXR benign. 01/17: Needs trach for half-way weaning. Need to find family to consent. 01/18: Family has consented. Still fails weaning trials. Will perform trach. Objective Vital Signs Date Time Temp Pulse Resp B/P Pulse Ox O2 Delivery O2 Flow Rate FiO2 01/18/17 07:35 94 50 01/18/17 07:35 Ventilator 01/18/17 06:00 72 01/18/17 05:55 14 01/18/17 04:00 98.8 143/66 Intake and Output 01/17/17 01/17/17 01/18/17 08:00 16:00 00:00 Intake Total 277 ml 315 ml 981 ml Output Total 550 ml 800 ml 400 ml Balance -273 ml -485 ml 581 ml Result Diagram: 01/15/1761601/18/17 0203 Imaging Last Impressions Chest X-Ray 01/06/17 0600 Signed Impressions: Service Date/Time: Friday, January 06, 2017 04:21 - CONCLUSION: Cardiomegaly with bilateral pleural effusions and bibasilar infiltrates. The radiographic pattern is most consistent with pulmonary edema. Sushil Abdi Jr., MD Abdomen X-Ray 01/05/17 0000 Signed Impressions: Service Date/Time: Thursday, January 05, 2017 07:23 - CONCLUSION: Nasogastric tube across the GE junction with minimal gaseous distention. Aba Dick MD FACR Chest CT 01/04/17 0000 Signed Impressions: Service Date/Time: Wednesday, January 04, 2017 12:03 - CONCLUSION: 1. Consolidative changes with small bilateral pleural effusions in both bases. 2. Extensive coronary artery calcifications. Aba Dick MD FACR Renal Ultrasound 01/01/17 0000 Signed Impressions: Service Date/Time: Sunday, January 01, 2017 09:12 - CONCLUSION: Normal examination. Sushil Abdi Jr., MD Scrotum Ultrasound 12/28/16 1246 Signed Impressions: Service Date/Time: Wednesday, December 28, 2016 14:05 - CONCLUSION: 1. Marked thickening of the scrotal wall, up to 2.4 cm on the right. 2. Small complex left hydrocele. 3. Small complex cysts right testicle. Positive testicular blood flow. Nael Scott MD Abdomen/Pelvis CT 12/28/16 1237 Signed Impressions: Service Date/Time: Wednesday, December 28, 2016 14:52 - CONCLUSION: 1. 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 2. Mild bilateral inguinal adenopathy and marked scrotal wall thickening. 3. Fat-containing 5.7 cm umbilical hernia. 4. Atherosclerotic aorta with some displaced intimal calcifications but without significant aneurysm. No bowel obstruction. Mild ileus. Nael Scott MD Objective Remarks GENERAL: 71-year-old male SKIN: Warm and dry. HEAD: Normocephalic. EYES: Pupils are 2 mm bilaterally and reactive. NECK: trachea midline. Supple. Orally intubated. CARDIOVASCULAR: Irreg Irreg Intermittently paced. S1, S2 no S4. Without murmur RESPIRATORY: Diminished breath sounds bases. No wheezes. Few scattered rhonchi. Lots of secretions. GASTROINTESTINAL: Abdomen soft, non-tender, obese. Active bowel sounds appreciated. Umbilical hernia remains reducible MUSCULOSKELETAL: Currently with trace to 2+ bilateral lower extremity pitting edema. Foot pulses palpable. : Packing which is clean and dry in the groin. NEURO: Moves all 4 extremities spontaneously. Withdraws to pain. Follows commands intermittently. Very weak. 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 CV: Congestive heart failure/systolic ejection fraction 25% 2013 Limited echo EF 35-40% with akinesis apical myocardium History of CABG 4 Hypertension Dyslipidemia History of single-chamber defibrillator 08/19 due to positive EPS study Holding valsartan 320 mg by mouth daily for hypertension due to acute kidney injury Continue Lipitor 40 mg by mouth daily/home medication for dyslipidemia On Coreg 50 mg by mouth twice a day at home for hypertension - decreased to 25 twice a day yesterday with underlying bradycardia Continue hydralazine 25 3 times a day/Isordil 10 every 8 as adjuvant while creatinine elevated Milrinone was discontinued 01/01 due to dysrhythmias Echo 2013 - EF 25-30%. No regional wall motion abnormality. Left atrium dilated Limited echo 2016 reveals EF 35-40%. Akinesis apical myocardium. Left atrium mild dilatated. Mild MR. At home on Lasix 40 mg by mouth twice a day. 60 milligrams IV Lasix held due to worsening renal function Started Bumex 1 twice a day today attempt to diurese. Continue spironolactone 12.[address] Rob cardiology seen for for underlying atrial flutter. Likely ischemic workup Resp: Acute hypoxemic respiratory failure Ongoing tobaccoism PRVC 14/600/0.85/5/50 Ventilator bundle Bronchodilator therapy every 4 hours and as needed Spontaneous breathing trials today. Adequate weaning parameters however FiO2 50 % Serratia in sputum with copious secretions. GI: Gastroesophageal reflux disease 5.7 cm umbilical hernia Glucerna 1.5 goal 55 cc an hour Pepcid 10 mg twice a day for GI prophylaxis. On Prilosec 20 mg by mouth daily at home Colace/senna twice a day for bowel regimen Umbilical hernia seen on CT is reducible. increase levemir to bid : Becca's gangrene BPH Postop for Becca's gangrene/ necrotizing fasciitis posterior scrotum, perineum and right perirectal tissue Postop washout and debridement for his gangrene Postoperative washout and debridement. 12/28 revealed gas in his perineum/scrotum and the right gluteal cleft. Followed by urology/Dr. Ling Perineal wound with considerable drainage. Endo: Diabetes mellitus Gout Holding Tanzeum 50 mg subcutaneous weekly. Holding allopurinol 200 mg by mouth daily for gout Sliding scale insulin with Accu-Cheks every 6 hours to maintain euglycemia. 8 units of sliding scale insulin past 24 hours and started on Levemir 5 daily -> BID Renal: Acute kidney injury - baseline creatinine 1.[address] revealed no signs of hydronephrosis. Urine eosinophils negative. Renal ultrasound revealed no hydronephrosis Creatinine currently 1.5 and downward trending. No indications for hemodialysis at this point. Heme: Normocytic anemia Leukocytosis Daily CBC. Monitor trends Transfuse 2 units PRBCs during this hospital stay. No current indication for transfusion of blood proximally at this time. ID: Becca's gangrene Group A beta strep UTI Unasyn 1.5 IV every 6 hours Clindamycin 300 mg by mouth every 6 hours completed 01/02 Zyvox day Pertinent cultures Sputum 01/14 - Serratia Sputum - 12/31 -no growth Abdomen abscess - 12/28 - Escherichia coli, E faecalis and coag negative staph Abdomen abscess - 12/28 - acid-fast bacilli/fungus negative Blood cultures 2 - 12/28 - no growth Urine culture - 12/28 -group A beta strep Infectious disease consulted. FEN: Hyper-magnesium Hypokalemia - resolved Hypernatremia Replace electrolytes as clinically indicated MSK: PT/OT evaluate and treat Access - Right IJ CVL day #10 placed 12/31 -> d/c - Left radial arterial line day #11 placed 3/28 -Left IJ CVL #6 Prophylaxis - GI - Pepcid - DVT - SCD/heparin subcutaneous Overall impression: Remains very weak, restricted by chronic poor cardiac function. Will need tracheostomy if we are to pursue continued aggressive care. Plan today. Son reasserts full code status for patient. Roshan Carlos MD Jan 18, 2017 09:47
[2017-01-18] MEDS ORDERED: MIDAZOLAM HCL 5 MG/ML VIAL (1 ML) IM ONE (10:00)
[2017-01-18] MEDS ORDERED: ROCURONIUM INJ 100 MG/10 ML VIAL IV ONE (10:00)
[2017-01-18] MEDS: FUROSEMIDE 40 MG/4 ML VIAL IV PUSH SCH (10:13)
[2017-01-18] MEDS: CHLORHEXIDINE 0.12% (ORAL KIT) 15 ML CUP MT SCH ×2 (10:13→20:00)
[2017-01-18] MEDS: DOCUSATE SODIUM 100 MG/10 ML UDC G-TUBE SCH ×2 (10:13→20:20)
[2017-01-18] MEDS: ARTIFICIAL TEARS OPTH SOLN 15 ML BTL EACH EYE SCH ×3 (10:13→20:00)
[2017-01-18] MEDS: FAMOTIDINE 20 MG TAB PO SCH ×2 (10:14→20:21)
[2017-01-18] MEDS: CARVEDILOL 12.5 MG TAB PO SCH ×2 (10:14→20:21)
[2017-01-18] MEDS: SPIRONOLACTONE 25 MG TAB PO SCH (10:14)
[2017-01-18] MEDS: INSULIN DETEMIR 100 UNITS/ML VIAL SQ SCH ×2 (10:15→20:21)
[2017-01-18] MEDS: SENNOSIDES SYRUP 8.8 MG/5 ML CUP PO SCH ×2 (10:15→20:20)
--- NOTE | 2017-01-18 12:13 | PD.PROCEDR ---
Procedure Note Procedure DX: Chronic Respiratory Failure OP: Diagnostic Bronchoscopy Procedure: On mechanical ventilation. Fentanyl 100 mcg, versed 5 mg, rocuronium 100 mg infused with usual ICU monitoring in place. Flexible bronch passed through elbow above trach tube and entire tracheobronchial tree inspected. Aside from mild erythema all mucosa is normal and segment patent. Scope than withdrawn to cricoid and used for visualization of percutaneous puncture needle. See surgeon's note for details. After successful trach positioning the bronch scope and oral tube were removed and ventilation switched to trach tube. CXR ordered. Will review. Roshan Carlos MD Jan 18, 2017 12:13
--- NOTE | 2017-01-18 12:14 | PD.PROCEDR ---
Procedure Note Procedure DATE OF SURGERY 01/18/17 PREOPERATIVE DIAGNOSES Respiratory failure. POSTOPERATIVE DIAGNOSES Respiratory failure. PROCEDURE [place] percutaneous tracheostomy PROCEDURALIST Dr. Garcias MEDICAL CLAIMS PROCESSOR Dr. Carlos ANESTHESIA Gen. endotracheal anesthesia plus local 0.5% lidocaine with epinephrine ESTIMATED BLOOD LOSS Less than 5 cc. PROCEDURE This procedure was performed at bedside in the surgical intensive care unit. Surgical timeout was undertaken to verify the patient's procedure and site. He was adequately sedated with fentanyl and propofol drips. Provided with 50 mg of rocuronium. The anterior neck was prepped with ChloraPrep 2 and draped in a sterile fashion. A longitudinal skin incision was made in the midline just inferior to the cricothyroid membrane. The cricothyroid memory was palpated to the tracheal rings. This was accessed with a needle and sheath and the Seldinger technique was employed. Guidewire was placed through the Angiocath without complication Identification of location the tracheostomy site was confirmed with a fiberoptic bronchoscope. Once endotracheal position of the sheath and guidewire were confirmed the tracheotomy site was serially dilated 3. Next, a 8.0 cuffed Shiley tracheostomy tube was attempted to be inserted over the guidewire into the trachea. However, unable to pass initially. On second attempt. A cuffed 8.0 Shiley tracheostomy tube was inserted over the guidewire into the trachea. The 8.0 Shiley cuff was inflated and the guidewire was removed. The inner cannula was introduced and the ventilator was connected to the newly formed tracheostomy. The patient was ventilated adequately through the protein is tracheostomy. The tracheostomy itself was secured with 2. 0 Prolene 5 at the skin. neck tie was employed to secure the tracheostomy tube.\ Bronchoscopy performed by Dr. Carlos verifying position of tracheostomy. Chest x-rays currently pending Yandel Garcias MD Jan 18, 2017 12:14
--- NOTE | 2017-01-18 12:47 | RADRPT ---
EXAM DATE/TIME: 01/18/2017 12:20 [place] COMPARISON: CHEST SINGLE AP, January 16, 2017, 17:54. INDICATIONS : Post tracheostomy. MEDICAL HISTORY : None. SURGICAL HISTORY : Pacemaker. ENCOUNTER: Initial ACUITY: 1 day PAIN SCORE: Non-responsive. LOCATION: Bilateral chest FINDINGS: Tracheostomy tube is present in satisfactory position. Lines and tubes are present not significantly changed. Cardiomegaly has not changed and there is slight degree of perivascular pulmonary edema. Rig ht lung base consolidation is difficult to exclude. CONCLUSION: No appreciable change. Carlene Crane MD on January 18, 2017 at 12:39 Board Certified Radiologist. This report was verified electronically.
[2017-01-18] MEDS: RESP: ALBUTEROL 2.5 MG/IPRATROPIUM 0.5 MG NEB (PRN) INH (19:49)
[2017-01-18] MEDS: ATORVASTATIN 40 MG TAB PO SCH (20:21)
[2017-01-18] MEDS: cefTRIAXone INJ 2,000 MG in SODIUM CHLORIDE 0.9% INJ 100 ML IV SCH (20:22)
[2017-01-19] VITALS (17 sets, daily range): BP systolic 126–183; BP diastolic 65–83; PULSE 62–86; RESP 18–28; TEMP 97–99.3; O2SAT 92–100
[2017-01-19] MEDS: INSULIN NovoLIN REGULAR SUPPLEMENTAL SCALE SQ SCH ×4 (01:42→19:57)
[2017-01-19] MEDS: hydrALAZINE HCL 20 MG/ML VIAL IV PUSH PRN ×2 (02:11→20:15)
[2017-01-19] MEDS: PROPOFOL 1000 MG/100 ML INJ 100 ML IV SCH ×7 (02:17→21:40)
[2017-01-19] MEDS: HYDROmorphone HCL PF 1 MG/ML VIAL IV PUSH PRN (03:03)
[2017-01-19] MEDS: CHLORHEXIDINE GLUCONATE 2 % 1 PACK (2 CLOTHS) TOP SCH (03:16)
[2017-01-19] MEDS: hydrALAZINE HCL 25 MG TAB PO SCH ×3 (05:00→21:39)
[2017-01-19] MEDS: METOCLOPRAMIDE HCL 10 MG/2 ML VIAL IV PUSH SCH ×3 (05:00→21:39)
[2017-01-19] MEDS: ISOSORBIDE DINITRATE 10 MG TAB PO SCH ×3 (05:00→21:39)
[2017-01-19] MEDS: HEPARIN SODIUM - SQ 10,000 UNITS/ML VIAL SQ SCH ×3 (05:01→21:40)
--- NOTE | 2017-01-19 07:40 | HHI.CCPN ---
Subjective Remarks/Hospital Course 71-year-old male presents for evaluation of testicular swelling. Approximately 10 days ago he was started on Aldactone for his blood pressure which. He also noted that her sugars has been slightly elevated. Denies any fevers. He has been feeling generally weak as well. Denied abdominal pain nausea vomiting or diarrhea. He thought the scrotal swelling was from the Aldactone and came into the emergency department to be evaluated. 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 remains intubated overnight. off vasopressors. 12/30: Much more comfortable. Back to OR for washout today. Breathing without distress. STEFFEN improving. Patient has dilated cardiomyopathy with severe systolic heart failure and EF 25-30% by last ECHO 2013. May need low-dose inotrope during course of therapy. 12/30 1800 hrs: Seen after OR today. He has full neck veins and light wheezes with basilar crackles. His underlying LV dysfunction requires that we treat this aggressively with diuretics and subsequent electrolyte replacement. Will move back to [facility]. 12/31: Required rapid response for 2nd time in 12 hours. Will need intubation due to severe systolic heart failure and pulmonary edema. 01/01: Afebrile. Remains nothing by mouth for planned washout today. Decreased urine output noted. Hypertensive with sedation vacation. 01/02: Yesterday with washout and debridement without complication. Continues to be in A. fib intermittently rate controlled. Hemodynamically stable. One bowel movement. Will try spontaneous breathing trials today and attempt to extubate. If unsuccessful will initiate tube feeding. 01/03: Tmax 99.2. Episode of desaturation overnight recording FiO2 100%. Currently back to 50%. Chest x-ray essentially stable. Small left pleural effusion. Low lung volumes. Remains in a flutter rate controlled. Imminently bradycardic. 3 bowel movements on 01/02. Tolerating tube feeding. 01/04: FiO2 currently at 50%. We'll check CT chest. Possible need pleural effusions. Remains in a flutter rate control. Intermittently bradycardic. No bowel movement yesterday. Tube feeds currently off for possible extubation but tolerating previously. Afebrile 01/05: Remains on FiO2 of 50%. CT chest revealed small bilateral pleural effusions otherwise unremarkable. Noted is currently rate controlled. No bowel movement. Tube feeds at goal. Afebrile. Intermittently follows commands. Subjective: 01/06: FiO2 40%. Self extubated yesterday. Lasted about 20 Mr. for requiring intubation. Was on 100 percent nonrebreather. Saturations are 90%. During intubation, Ambu bag malfunctioned. Patient was quickly intubated and was arousable moving all 4 extremities prior to re-sedation. We'll attempt sedation vacation again today. 01/07: Remains ventilator dependent, failed extubation yesterday. Unable to wean today, weak. 01/08: Tolerating CPAP trials but unable to extubate. 01/09: Plan transfer to LTAC. 01/10: Continued improvement in renal function. Contraction alkalosis with diuresis. Will require LTAC. 01/11: Will need to get a fair amount of excess water off. Consider gtt. 01/11: Great response to bumex gtt. 01/13: Continue diuresis. Replete electrolytes. Reduce vent rate. 01/14: Diuresed 10 liters net balance. Replace lytes. Correct HCO3 with diamox. Wean vent. 01/15: Despite aggressive diuresis and clearing of CXR he does not tolerate extended SBTs. He will need a tracheostomy if family wishes to pursue aggressive care. 01/16: Serratia in sputum, afebrile. WBC 5600. CXR benign. 01/17: Needs trach for [facility] weaning. Need to find family to consent. 01/18: Family has consented. Still fails weaning trials. Will perform trach. 01/19: Underwent percutaneous tracheostomy on 01/18. Remains on mechanical ventilation. Objective Vital Signs Date Time Temp Pulse Resp B/P Pulse Ox O2 Delivery O2 Flow Rate FiO2 01/19/17 06:00 84 01/19/17 04:46 95 50 01/19/17 04:00 98.8 18 150/78 01/18/17 19:00 Mechanical Ventilator Intake and Output 01/18/17 01/18/17 01/19/17 08:00 16:00 00:00 Intake Total 632 ml 554 ml 623 ml Output Total 400 ml 750 ml 400 ml Balance 232 ml -196 ml 223 ml Result Diagram: 01/15/17 0617 01/18/17 0203 Imaging Last Impressions Chest X-Ray 01/06/17 0600 Signed Impressions: Service Date/Time: Friday, January 06, 2017 04:21 - CONCLUSION: Cardiomegaly with bilateral pleural effusions and bibasilar infiltrates. The radiographic pattern is most consistent with pulmonary edema. Sushil Abdi Jr., MD Abdomen X-Ray 01/05/17 0000 Signed Impressions: Service Date/Time: Thursday, January 05, 2017 07:23 - CONCLUSION: Nasogastric tube across the GE junction with minimal gaseous distention. Aba Dick MD FACR Chest CT 01/04/17 0000 Signed Impressions: Service Date/Time: Wednesday, January 04, 2017 12:03 - CONCLUSION: 1. Consolidative changes with small bilateral pleural effusions in both bases. 2. Extensive coronary artery calcifications. Aba Dick MD FACR Renal Ultrasound 01/01/17 0000 Signed Impressions: Service Date/Time: Sunday, January 01, 2017 09:12 - CONCLUSION: Normal examination. Sushil Abdi Jr., MD Scrotum Ultrasound 12/28/16 1246 Signed Impressions: Service Date/Time: Wednesday, December 28, 2016 14:05 - CONCLUSION: 1. Marked thickening of the scrotal wall, up to 2.4 cm on the right. 2. Small complex left hydrocele. 3. Small complex cysts right testicle. Positive testicular blood flow. Nael Scott MD Abdomen/Pelvis CT 12/28/16 1237 Signed Impressions: Service Date/Time: Wednesday, December 28, 2016 14:52 - CONCLUSION: 1. 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 2. Mild bilateral inguinal adenopathy and marked scrotal wall thickening. 3. Fat-containing 5.7 cm umbilical hernia. 4. Atherosclerotic aorta with some displaced intimal calcifications but without significant aneurysm. No bowel obstruction. Mild ileus. Nael Scott MD Objective Remarks GENERAL: 71-year-old male SKIN: Warm and dry. HEAD: Normocephalic. EYES: Pupils are 2 mm bilaterally and reactive. NECK: trachea midline. Supple. Orally intubated. CARDIOVASCULAR: Irreg Irreg Intermittently paced. S1, S2 no S4. Without murmur RESPIRATORY: Diminished breath sounds bases. No wheezes. Few scattered rhonchi. Lots of secretions. GASTROINTESTINAL: Abdomen soft, non-tender, obese. Active bowel sounds appreciated. Umbilical hernia remains reducible MUSCULOSKELETAL: Currently with trace to 2+ bilateral lower extremity pitting edema. Foot pulses palpable. : Packing which is clean and dry in the groin. NEURO: Moves all 4 extremities spontaneously. Withdraws to pain. Follows commands intermittently. Very weak. 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 CV: Congestive heart failure/systolic ejection fraction 25% 2013 Limited echo EF 35-40% with akinesis apical myocardium History of CABG 4 Hypertension Dyslipidemia History of single-chamber defibrillator 08/19 due to positive EPS study Holding valsartan 320 mg by mouth daily for hypertension due to acute kidney injury Continue Lipitor 40 mg by mouth daily/home medication for dyslipidemia On Coreg 50 mg by mouth twice a day at home for hypertension - decreased to 25 twice a day yesterday with underlying bradycardia Continue hydralazine 25 3 times a day/Isordil 10 every 8 as adjuvant while creatinine elevated Milrinone was discontinued 01/01 due to dysrhythmias Echo 2013 - EF 25-30%. No regional wall motion abnormality. Left atrium dilated Limited echo 2016 reveals EF 35-40%. Akinesis apical myocardium. Left atrium mild dilatated. Mild MR. At home on Lasix 40 mg by mouth twice a day. 60 milligrams IV Lasix held due to worsening renal function Started Bumex 1 twice a day today attempt to diurese. Continue spironolactone 12.[address] Rob cardiology seen for for underlying atrial flutter. Likely ischemic workup Resp: Acute hypoxemic respiratory failure Ongoing tobaccoism PRVC 14/600/0.85/5/50 Ventilator bundle Bronchodilator therapy every 4 hours and as needed Spontaneous breathing trials today. Adequate weaning parameters however FiO2 50 % Serratia in sputum with copious secretions. GI: Gastroesophageal reflux disease 5.7 cm umbilical hernia Glucerna 1.5 goal 55 cc an hour Pepcid 10 mg twice a day for GI prophylaxis. On Prilosec 20 mg by mouth daily at home Colace/senna twice a day for bowel regimen Umbilical hernia seen on CT is reducible. levemir bid : Becca's gangrene BPH Postop for Becca's gangrene/ necrotizing fasciitis posterior scrotum, perineum and right perirectal tissue Postop washout and debridement for his gangrene Postoperative washout and debridement. 12/28 revealed gas in his perineum/scrotum and the right gluteal cleft. Followed by urology/Dr. Ling Perineal wound with considerable drainage. Endo: Diabetes mellitus Gout Holding Tanzeum 50 mg subcutaneous weekly. Holding allopurinol 200 mg by mouth daily for gout Sliding scale insulin with Accu-Cheks every 6 hours to maintain euglycemia. 8 units of sliding scale insulin past 24 hours and started on Levemir 5 daily -> BID Renal: Acute kidney injury - baseline creatinine 1.[address] revealed no signs of hydronephrosis. Urine eosinophils negative. Renal ultrasound revealed no hydronephrosis Creatinine currently 1.5 and downward trending. No indications for hemodialysis at this point. Heme: Normocytic anemia Leukocytosis Daily CBC. Monitor trends Transfuse 2 units PRBCs during this hospital stay. No current indication for transfusion of blood at this time. ID: Becca's gangrene Group A beta strep UTI Unasyn 1.5 IV every 6 hours Clindamycin 300 mg by mouth every 6 hours completed 01/02 Zyvox day Pertinent cultures Sputum 01/14 - Serratia Sputum - 12/31 -no growth Abdomen abscess - 12/28 - Escherichia coli, E faecalis and coag negative staph Abdomen abscess - 12/28 - acid-fast bacilli/fungus negative Blood cultures 2 - 12/28 - no growth Urine culture - 12/28 -group A beta strep Infectious disease consulted. FEN: Hyper-magnesium Hypokalemia - resolved Hypernatremia Replace electrolytes as clinically indicated MSK: PT/OT evaluate and treat Access - Right IJ CVL day #10 placed 12/31 -> d/c - Left radial arterial line day #11 placed 12/31 -Left IJ CVL #7 Prophylaxis - GI - Pepcid - DVT - SCD/heparin subcutaneous Overall impression: Remains very weak, restricted by chronic poor cardiac function. Will need tracheostomy if we are to pursue continued aggressive care. Plan today. Son reasserts full code status for patient. Chapo Woods MD Jan 19, 2017 07:40
[2017-01-19] MEDS: RESP: BUDESONIDE 0.5 MG/2 ML NEB NEB SCH ×2 (07:41→20:13)
[2017-01-19] MEDS: SODIUM CHLORIDE 0.9% FLUSH 10 ML FLUSH SCH ×2 (08:25→20:15)
[2017-01-19] MEDS: CHLORHEXIDINE 0.12% (ORAL KIT) 15 ML CUP MT SCH ×2 (10:01→19:57)
[2017-01-19] MEDS: ARTIFICIAL TEARS OPTH SOLN 15 ML BTL EACH EYE SCH ×3 (10:01→18:48)
[2017-01-19] MEDS: SENNOSIDES SYRUP 8.8 MG/5 ML CUP PO SCH ×2 (10:02→20:14)
[2017-01-19] MEDS: INSULIN DETEMIR 100 UNITS/ML VIAL SQ SCH ×2 (10:02→20:15)
[2017-01-19] MEDS: DOCUSATE SODIUM 100 MG/10 ML UDC G-TUBE SCH ×2 (10:02→20:14)
[2017-01-19] MEDS: FUROSEMIDE 40 MG/4 ML VIAL IV PUSH SCH (10:03)
[2017-01-19] MEDS: FAMOTIDINE 20 MG TAB PO SCH ×2 (10:03→20:15)
[2017-01-19] MEDS: SPIRONOLACTONE 25 MG TAB PO SCH (10:03)
[2017-01-19] MEDS: CARVEDILOL 12.5 MG TAB PO SCH ×2 (10:03→20:15)
[2017-01-19] MEDS: cefTRIAXone INJ 2,000 MG in SODIUM CHLORIDE 0.9% INJ 100 ML IV SCH (18:48)
[2017-01-19] MEDS: ATORVASTATIN 40 MG TAB PO SCH (20:15)
[2017-01-20] VITALS (18 sets, daily range): BP systolic 113–162; BP diastolic 59–83; PULSE 52–89; RESP 18; TEMP 97.6–100.3; O2SAT 94–100
[2017-01-20] MEDS: INSULIN NovoLIN REGULAR SUPPLEMENTAL SCALE SQ SCH ×4 (02:00→21:01)
[2017-01-20 02:22] LABS: AUTOMATED NEUTROPHIL # 3.3 TH/MM3 (1.8-7.7); BASOPHIL % 0.4 % (0.0-2.0); EOSINOPHIL # 0.2 TH/MM3 (0-0.4); EOSINOPHIL % 2.9 % (0.0-4.0); HEMO FLAGS DIFF FINAL; LYMPH % 29.4 % (9.0-44.0); LYMPHOCYTE # 1.6 TH/MM3 (1.0-4.8); MEAN CORPUSCULAR HEMOGLOBIN 27.8 PG (27.0-34.0); MEAN CORPUSCULAR HGB CONC 33.1 % (32.0-36.0); MONO % 6.1 % (0.0-8.0); NEUT % 61.2 % (16.0-70.0); PLATELET COUNT 176 TH/MM3 (150-450); RED BLOOD COUNT 3.21 MIL/MM3 (4.50-5.90); RED CELL DISTRIBUTION WIDTH 19.2 % (11.6-17.2); WHITE BLOOD COUNT 5.4 TH/MM3 (4.0-11.0)
[2017-01-20 02:43] LABS: ANION GAP 5 MEQ/L (5-15); AST (GOT) 29 U/L (15-37); BICARBONATE 34.6 MEQ/L (21.0-32.0); BLOOD UREA NITROGEN 31 MG/DL (7-18); CHLORIDE 106 MEQ/L (98-107); GLOMERULAR FILTRATION RATE 56 ML/MIN (>89); MAGNESIUM 2.5 MG/DL (1.5-2.5); POTASSIUM 3.3 MEQ/L (3.5-5.1); SODIUM (NA) 146 MEQ/L (136-145)
[2017-01-20 02:47] LABS: ALKALINE PHOSPHATASE 127 U/L (45-117); ALT (GPT) 49 U/L (12-78); TOTAL BILIRUBIN ADULT 0.4 MG/DL (0.2-1.0)
[2017-01-20] MEDS: POTASSIUM CHLOR 20 MEQ PREMIX 100 ML IV PRN ×2 (02:54→05:15)
[2017-01-20] MEDS: CHLORHEXIDINE GLUCONATE 2 % 1 PACK (2 CLOTHS) TOP SCH (04:00)
[2017-01-20] MEDS: ISOSORBIDE DINITRATE 10 MG TAB PO SCH ×3 (06:44→20:54)
[2017-01-20] MEDS: PROPOFOL 1000 MG/100 ML INJ 100 ML IV SCH ×5 (06:44→18:11)
[2017-01-20] MEDS: HEPARIN SODIUM - SQ 10,000 UNITS/ML VIAL SQ SCH ×3 (06:44→20:56)
[2017-01-20] MEDS: METOCLOPRAMIDE HCL 10 MG/2 ML VIAL IV PUSH SCH ×3 (06:44→20:55)
[2017-01-20] MEDS: hydrALAZINE HCL 25 MG TAB PO SCH ×3 (06:44→20:54)
[2017-01-20] MEDS: RESP: BUDESONIDE 0.5 MG/2 ML NEB NEB SCH ×2 (07:23→19:56)
[2017-01-20] MEDS: CHLORHEXIDINE 0.12% (ORAL KIT) 15 ML CUP MT SCH ×2 (08:00→20:57)
[2017-01-20] MEDS: ARTIFICIAL TEARS OPTH SOLN 15 ML BTL EACH EYE SCH ×3 (08:39→16:31)
[2017-01-20] MEDS: SENNOSIDES SYRUP 8.8 MG/5 ML CUP PO SCH ×2 (08:50→20:53)
[2017-01-20] MEDS: FUROSEMIDE 40 MG/4 ML VIAL IV PUSH SCH (08:51)
[2017-01-20] MEDS: DOCUSATE SODIUM 100 MG/10 ML UDC G-TUBE SCH ×2 (08:51→20:54)
[2017-01-20] MEDS: FAMOTIDINE 20 MG TAB PO SCH ×2 (08:53→20:55)
[2017-01-20] MEDS: SPIRONOLACTONE 25 MG TAB PO SCH (08:53)
[2017-01-20] MEDS: INSULIN DETEMIR 100 UNITS/ML VIAL SQ SCH ×2 (08:53→20:56)
[2017-01-20] MEDS: SODIUM CHLORIDE 0.9% FLUSH 10 ML FLUSH SCH ×2 (08:54→20:57)
[2017-01-20] MEDS: CARVEDILOL 12.5 MG TAB PO SCH ×2 (08:54→21:01)
--- NOTE | 2017-01-20 09:29 | HHI.CCPN ---
Subjective Remarks/Hospital Course 71-year-old male presents for evaluation of testicular swelling. Approximately 10 days ago he was started on Aldactone for his blood pressure which. He also noted that her sugars has been slightly elevated. Denies any fevers. He has been feeling generally weak as well. Denied abdominal pain nausea vomiting or diarrhea. He thought the scrotal swelling was from the Aldactone and came into the emergency department to be evaluated. 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 remains intubated overnight. off vasopressors. 12/30: Much more comfortable. Back to OR for washout today. Breathing without distress. STEFFEN improving. Patient has dilated cardiomyopathy with severe systolic heart failure and EF 25-30% by last ECHO 2013. May need low-dose inotrope during course of therapy. 12/30 1800 hrs: Seen after OR today. He has full neck veins and light wheezes with basilar crackles. His underlying LV dysfunction requires that we treat this aggressively with diuretics and subsequent electrolyte replacement. Will move back to [facility]. 12/31: Required rapid response for 2nd time in 12 hours. Will need intubation due to severe systolic heart failure and pulmonary edema. 01/01: Afebrile. Remains nothing by mouth for planned washout today. Decreased urine output noted. Hypertensive with sedation vacation. 01/02: Yesterday with washout and debridement without complication. Continues to be in A. fib intermittently rate controlled. Hemodynamically stable. One bowel movement. Will try spontaneous breathing trials today and attempt to extubate. If unsuccessful will initiate tube feeding. 01/03: Tmax 99.2. Episode of desaturation overnight recording FiO2 100%. Currently back to 50%. Chest x-ray essentially stable. Small left pleural effusion. Low lung volumes. Remains in a flutter rate controlled. Imminently bradycardic. 3 bowel movements on 01/02. Tolerating tube feeding. 01/04: FiO2 currently at 50%. We'll check CT chest. Possible need pleural effusions. Remains in a flutter rate control. Intermittently bradycardic. No bowel movement yesterday. Tube feeds currently off for possible extubation but tolerating previously. Afebrile 01/05: Remains on FiO2 of 50%. CT chest revealed small bilateral pleural effusions otherwise unremarkable. Noted is currently rate controlled. No bowel movement. Tube feeds at goal. Afebrile. Intermittently follows commands. Subjective: 01/06: FiO2 40%. Self extubated yesterday. Lasted about 20 Mr. for requiring intubation. Was on 100 percent nonrebreather. Saturations are 90%. During intubation, Ambu bag malfunctioned. Patient was quickly intubated and was arousable moving all 4 extremities prior to re-sedation. We'll attempt sedation vacation again today. 01/07: Remains ventilator dependent, failed extubation yesterday. Unable to wean today, weak. 01/08: Tolerating CPAP trials but unable to extubate. 01/09: Plan transfer to LTAC. 01/10: Continued improvement in renal function. Contraction alkalosis with diuresis. Will require LTAC. 01/11: Will need to get a fair amount of excess water off. Consider gtt. 01/11: Great response to bumex gtt. 01/13: Continue diuresis. Replete electrolytes. Reduce vent rate. 01/14: Diuresed 10 liters net balance. Replace lytes. Correct HCO3 with diamox. Wean vent. 01/15: Despite aggressive diuresis and clearing of CXR he does not tolerate extended SBTs. He will need a tracheostomy if family wishes to pursue aggressive care. 01/16: Serratia in sputum, afebrile. WBC 5600. CXR benign. 01/17: Needs trach for custodial weaning. Need to find family to consent. 01/18: Family has consented. Still fails weaning trials. Will perform trach. 01/19: Underwent percutaneous tracheostomy on 01/18. Remains on mechanical ventilation. 01/20: Remains on propofol for agitation. On mechanical ventilation via tracheostomy. Tolerating tube feeds. Objective Vital Signs Date Time Temp Pulse Resp B/P Pulse Ox O2 Delivery O2 Flow Rate FiO2 01/20/17 07:19 98 45 01/20/17 06:00 52 01/20/17 04:00 98.9 18 138/63 01/19/17 19:00 Mechanical Ventilator Intake and Output 01/19/17 01/19/17 01/20/17 08:00 16:00 00:00 Intake Total 653 ml 903 ml 812 ml Output Total 850 ml 450 ml 525 ml Balance -197 ml 453 ml 287 ml Result Diagram: 01/20/17 0200 01/20/17 0200 Imaging Last Impressions Chest X-Ray 01/06/17 0600 Signed Impressions: Service Date/Time: Friday, January 06, 2017 04:21 - CONCLUSION: Cardiomegaly with bilateral pleural effusions and bibasilar infiltrates. The radiographic pattern is most consistent with pulmonary edema. Sushil Abdi Jr., MD Abdomen X-Ray 01/05/17 0000 Signed Impressions: Service Date/Time: Thursday, January 05, 2017 07:23 - CONCLUSION: Nasogastric tube across the GE junction with minimal gaseous distention. Aba Dick MD FACR Chest CT 01/04/17 0000 Signed Impressions: Service Date/Time: Wednesday, January 04, 2017 12:03 - CONCLUSION: 1. Consolidative changes with small bilateral pleural effusions in both bases. 2. Extensive coronary artery calcifications. Aba Dick MD FACR Renal Ultrasound 01/01/17 0000 Signed Impressions: Service Date/Time: Sunday, January 01, 2017 09:12 - CONCLUSION: Normal examination. Sushil Abdi Jr., MD Scrotum Ultrasound 12/28/16 1246 Signed Impressions: Service Date/Time: Wednesday, December 28, 2016 14:05 - CONCLUSION: 1. Marked thickening of the scrotal wall, up to 2.4 cm on the right. 2. Small complex left hydrocele. 3. Small complex cysts right testicle. Positive testicular blood flow. Nael Scott MD Abdomen/Pelvis CT 12/28/16 1237 Signed Impressions: Service Date/Time: Wednesday, December 28, 2016 14:52 - CONCLUSION: 1. 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 2. Mild bilateral inguinal adenopathy and marked scrotal wall thickening. 3. Fat-containing 5.7 cm umbilical hernia. 4. Atherosclerotic aorta with some displaced intimal calcifications but without significant aneurysm. No bowel obstruction. Mild ileus. Nael Scott MD Objective Remarks GENERAL: 71-year-old male SKIN: Warm and dry. HEAD: Normocephalic. EYES: Pupils are 2 mm bilaterally and reactive. NECK: Tracheostomy in place CARDIOVASCULAR: Irreg Irreg Intermittently paced. S1, S2 no S4. Without murmur RESPIRATORY: Diminished breath sounds bases. No wheezes. Few scattered rhonchi. Lots of secretions. GASTROINTESTINAL: Abdomen soft, non-tender, obese. Active bowel sounds appreciated. Umbilical hernia remains reducible MUSCULOSKELETAL: Currently with trace to 2+ bilateral lower extremity pitting edema. Foot pulses palpable. : Packing which is clean and dry in the groin. NEURO: Moves all 4 extremities spontaneously. Withdraws to pain. Follows commands intermittently. Very weak. 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 Attempt stopping propofol. Starting Seroquel 50 mg by mouth twice a day on 01/20 to control agitation. Not on home medications for underlying psychiatric diagnosis. CV: Congestive heart failure/systolic ejection fraction 25% 2013 Limited echo EF 35-40% with akinesis apical myocardium History of CABG 4 Hypertension Dyslipidemia History of single-chamber defibrillator 08/19 due to positive EPS study Holding valsartan 320 mg by mouth daily for hypertension due to acute kidney injury Continue Lipitor 40 mg by mouth daily/home medication for dyslipidemia On Coreg 50 mg by mouth twice a day at home for hypertension - decreased to 25 twice a day yesterday with underlying bradycardia Continue hydralazine 25 3 times a day/Isordil 10 every 8 as adjuvant while creatinine elevated Milrinone was discontinued 01/01 due to dysrhythmias Echo 2013 - EF 25-30%. No regional wall motion abnormality. Left atrium dilated Limited echo 2016 reveals EF 35-40%. Akinesis apical myocardium. Left atrium mild dilatated. Mild MR. At home on Lasix 40 mg by mouth twice a day. On Lasix 40 mg IV daily Continue spironolactone 12.[address] Rob cardiology seen for for underlying atrial flutter. Likely ischemic workup Resp: Acute hypoxemic respiratory failure Ongoing tobaccoism PRVC 14/600/0.85/5/50 Ventilator bundle. Status post tracheostomy 01/18 Bronchodilator therapy every 4 hours and as needed Spontaneous breathing trials today. Adequate weaning parameters however FiO2 50 % Serratia in sputum with copious secretions. GI: Gastroesophageal reflux disease 5.7 cm umbilical hernia Glucerna 1.5 goal 55 cc an hour Pepcid 10 mg twice a day for GI prophylaxis. On Prilosec 20 mg by mouth daily at home Colace/senna twice a day for bowel regimen Umbilical hernia seen on CT is reducible. levemir bid : Becca's gangrene BPH Postop for Becca's gangrene/ necrotizing fasciitis posterior scrotum, perineum and right perirectal tissue Postop washout and debridement for his gangrene Postoperative washout and debridement. 12/28 revealed gas in his perineum/scrotum and the right gluteal cleft. Followed by urology/Dr. Ling Perineal wound with considerable drainage. Endo: Diabetes mellitus Gout Holding Tanzeum 50 mg subcutaneous weekly. Holding allopurinol 200 mg by mouth daily for gout Sliding scale insulin with Accu-Cheks every 6 hours to maintain euglycemia. 8 units of sliding scale insulin past 24 hours and started on Levemir 5 daily -> BID Renal: Acute kidney injury - baseline creatinine 1.[address] revealed no signs of hydronephrosis. Urine eosinophils negative. Renal ultrasound revealed no hydronephrosis Creatinine currently 1.5 and downward trending. No indications for hemodialysis at this point. Heme: Normocytic anemia Leukocytosis Daily CBC. Monitor trends Transfuse 2 units PRBCs during this hospital stay. No current indication for transfusion of blood at this time. ID: Becca's gangrene Group A beta strep UTI Unasyn 1.5 IV every 6 hours stopped 01/16 (switched to Rocephin per ID) Clindamycin 300 mg by mouth every 6 hours completed 01/02 Rocephin 2gm IV daily 01/16 Zyvox daily Pertinent cultures Sputum 01/14 - Serratia Sputum - 12/31 -no growth Abdomen abscess - 12/28 - Escherichia coli, E faecalis and coag negative staph Abdomen abscess - 12/28 - acid-fast bacilli/fungus negative Blood cultures 2 - 12/28 - no growth Urine culture - 12/28 -group A beta strep Infectious disease consulted. FEN: Hyper-magnesium Hypokalemia - resolved Hypernatremia Replace electrolytes as clinically indicated MSK: PT/OT evaluate and treat Access - Right IJ CVL day #10 placed 12/31 -> d/c - Left radial arterial line day placed 12/31 -> d/c -Left IJ CVL #8 Prophylaxis - GI - Pepcid - DVT - SCD/heparin subcutaneous Overall impression: Remains very weak, restricted by chronic poor cardiac function. s/p tracheostomy. Son reasserts full code status for patient. Chapo Woods MD Jan 20, 2017 09:29
[2017-01-20] MEDS: QUEtiapine FUMARATE 100 MG TAB PO SCH ×2 (12:37→20:54)
[2017-01-20] MEDS: cefTRIAXone INJ 2,000 MG in SODIUM CHLORIDE 0.9% INJ 100 ML IV SCH (16:31)
--- NOTE | 2017-01-20 17:21 | HHI.HCPN ---
Reason for visit a. To assist with evaluation and management of symptoms including: b. To assist medical decision maker(s) with: better understanding of current medical conditions; weighing benefits/burdens of medical treatment options; making medical treatment decisions. Subjective/Interval History INTERVAL NOTE: The patient remains intubated, sedated in the ISC. No recent cultures. Patient remains afebrile. White count 5.4, GFR remains in the 50s. The patient's son Dell consented for the tracheostomy over the weekend. More information obtained regarding the various family members, see below. . Family/friend interactions I spoke at length with the patient's stepfather Camden; he confirms that the patient's mother has dementia, has lost 30 pounds in the past few months, and is on [facility] hosp[facility]. He says that she doesn't know what day or month it is, and that most of the time she is unable to identify friends or relatives that come to visit her. According to pa Hannah, the patient's brother Jose had a spine and head injury and also has dementia. Regarding the patient's son Dell, pa Hannah says that he "has been involved in drugs off and on," that he has been "trying to drain his father's bank account," and that he " never answers his phone when you call." eDll reportedly lives in town with his father, and he was here to visit the patient over the weekend. (I made it very clear to the patients nurse and to ap Hannah that Palliative Care wants to be called if any contact is made with son Dell so that we can sit down with him, as it seems he is the decision making proxy at this point in time. . Advance Directives Living Will: Never completed Health Care Surrogate: Never completed Durable Power of Flume Maker: Never completed Advance Directive Specifics Date completed: According to the patient's family and the primary care physician it does not appear the patient has ever completed an advanced directive. . Health Care Surrogate(s): There has never been designation of a health care surrogate. Documented care wishes: There is never been written documentation of health care goals/preferences. . Objective Vital Signs Date Time Temp Pulse Resp B/P Pulse Ox O2 Delivery O2 Flow Rate FiO2 01/20/17 15:27 96 45 01/20/17 12:00 45 01/20/17 12:00 97.6 75 18 157/72 97 01/20/17 12:00 79 01/20/17 10:57 98 45 01/20/17 10:00 75 01/20/17 08:00 45 01/20/17 08:00 98.9 74 18 113/59 98 01/20/17 08:00 74 01/20/17 07:19 98 45 01/20/17 07:00 98 Mechanical Ventilator 45 01/20/17 06:00 52 01/20/17 04:24 95 45 01/20/17 04:00 98.9 61 18 138/63 97 01/20/17 04:00 50 01/20/17 04:00 61 01/20/17 02:00 63 01/20/17 01:01 94 45 01/20/17 00:00 68 01/20/17 00:00 99.0 68 18 127/62 96 01/20/17 00:00 50 01/19/17 22:00 62 01/19/17 20:13 95 45 01/19/17 20:00 67 01/19/17 20:00 50 01/19/17 20:00 98.8 67 18 183/83 100 01/19/17 19:00 98 Mechanical Ventilator 40 Intake & Output 01/20/17 01/20/17 07:00 19:00 Intake Total 2015 ml Output Total 895 ml Balance 1120 ml IV Total 840 ml Tube Feeding 975 ml Tube Irrigant 200 ml Output Urine Total 695 ml Stool Total 200 ml Physical Exam CONSTITUTIONAL/GENERAL: This is an adequately nourished patient, in no apparent distress. Sedated, ventilated TUBES/LINES/DRAINS: Peripheral IVs; left subclavian central line; rectal tube; Capps catheter; orotracheal tube; orogastric tube; soft wrist restraints; SCDs SKIN: No jaundice, rashes, or lesions. There is a clean dry dressing over the surgical wound. The wound was not examined by me. Skin temperature appropriate. Not diaphoretic. EYES: Pupils equal and round and reactive. Could not assess extraocular movements. No scleral icterus. No injection or drainage. Fundi not examined. ENT: Unable to assess hearing. Nose without bleeding or purulent drainage. CARDIOVASCULAR: Irregular rhythm (monitor showing atrial flutter) without murmurs, gallops, or rubs. No JVD. Peripheral pulses weak. RESPIRATORY/CHEST: Symmetric, unlabored respirations. Breath sounds equal bilaterally. Scattered faint rhonchi. No wheezes, rales. GASTROINTESTINAL: Abdomen obese, soft, non-tender, nondistended. No hepato- splenomegaly, or palpable masses. No guarding. Bowel sounds present. GENITOURINARY: Without palpable bladder distension. Capps catheter in place. Wounds are covered by dressings MUSCULOSKELETAL: Extremities without clubbing, cyanosis. There is bilateral nonpitting hand edema. No mottling. NEUROLOGICAL: Does not awaken to voice or exam. Appears to occasionally move all extremities. Unable to follow commands. PSYCHIATRIC: Difficult to assess due to level of responsiveness. . Diagnostic Tests Laboratory Laboratory Tests Test 01/18/17 01/20/17 02:03 02:00 Potassium Level 3.7 MEQ/L 3.3 MEQ/L (3.5-5.1) (3.5-5.1) White Blood Count 5.4 TH/MM3 (4.0-11.0) Red Blood Count 3.21 MIL/MM3 (4.50-5.90) Hemoglobin 8.9 GM/DL (13.0-17.0) Hematocrit 27.0 % (39.0-51.0) Mean Corpuscular Volume 84.0 FL (80.0-100.0) Mean Corpuscular Hemoglobin 27.8 PG (27.0-34.0) Mean Corpuscular Hemoglobin 33.1 % Concent (32.0-36.0) Red Cell Distribution Width 19.2 % (11.6-17.2) Platelet Count 176 TH/MM3 (150-450) Mean Platelet Volume 8.9 FL (7.0-11.0) Neutrophils (%) (Auto) 61.2 % (16.0-70.0) Lymphocytes (%) (Auto) 29.4 % (9.0-44.0) Monocytes (%) (Auto) 6.1 % (0.0-8.0) Eosinophils (%) (Auto) 2.9 % (0.0-4.0) Basophils (%) (Auto) 0.4 % (0.0-2.0) Neutrophils # (Auto) 3.3 TH/MM3 (1.8-7.7) Lymphocytes # (Auto) 1.6 TH/MM3 (1.0-4.8) Monocytes # (Auto) 0.3 TH/MM3 (0-0.9) Eosinophils # (Auto) 0.2 TH/MM3 (0-0.4) Basophils # (Auto) 0.0 TH/MM3 (0-0.2) CBC Comment DIFF FINAL Differential Comment Sodium Level 146 MEQ/L (136-145) Chloride Level 106 MEQ/L (98-107) Carbon Dioxide Level 34.6 MEQ/L (21.0-32.0) Anion Gap 5 MEQ/L (5-15) Blood Urea Nitrogen 31 MG/DL (7-18) Creatinine 1.27 MG/DL (0.60-1.30) Estimat Glomerular Filtration 56 ML/MIN (>89) Rate Random Glucose 134 MG/DL (74-106) Calcium Level 8.6 MG/DL (8.5-10.1) Magnesium Level 2.5 MG/DL (1.5-2.5) Total Bilirubin 0.4 MG/DL (0.2-1.0) Aspartate Amino Transf 29 U/L (15-37) (AST/SGOT) Alanine Aminotransferase 49 U/L (12-78) (ALT/SGPT) Alkaline Phosphatase 127 U/L (45-117) Total Protein 6.4 GM/DL (6.4-8.2) Albumin 2.3 GM/DL (3.4-5.0) Result Diagram: 01/20/17 0200 01/20/17 0200 Imaging Last Impressions Chest X-Ray 01/18/17 0000 Signed Impressions: Service Date/Time: Wednesday, January 18, 2017 12:20 - CONCLUSION: No appreciable change. Carlene Crane MD Abdomen X-Ray 01/05/17 0000 Signed Impressions: Service Date/Time: Thursday, January 05, 2017 07:23 - CONCLUSION: Nasogastric tube across the GE junction with minimal gaseous distention. Aba Dick MD FACR Chest CT 01/04/17 0000 Signed Impressions: Service Date/Time: Wednesday, January 04, 2017 12:03 - CONCLUSION: 1. Consolidative changes with small bilateral pleural effusions in both bases. 2. Extensive coronary artery calcifications. Aba Dick MD FACR Renal Ultrasound 01/01/17 0000 Signed Impressions: Service Date/Time: Sunday, January 01, 2017 09:12 - CONCLUSION: Normal examination. Sushil Abdi Jr., MD Scrotum Ultrasound 12/28/16 1246 Signed Impressions: Service Date/Time: Wednesday, December 28, 2016 14:05 - CONCLUSION: 1. Marked thickening of the scrotal wall, up to 2.4 cm on the right. 2. Small complex left hydrocele. 3. Small complex cysts right testicle. Positive testicular blood flow. Nael Scott MD Abdomen/Pelvis CT 12/28/16 1237 Signed Impressions: Service Date/Time: Wednesday, December 28, 2016 14:52 - CONCLUSION: 1. 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 2. Mild bilateral inguinal adenopathy and marked scrotal wall thickening. 3. Fat-containing 5.7 cm umbilical hernia. 4. Atherosclerotic aorta with some displaced intimal calcifications but without significant aneurysm. No bowel obstruction. Mild ileus. Nael Soctt MD Procedures * Central line placement. * I&D scrotal/perineal wound * Washout and debridement of wound * Intubation/mechanical ventilation * TRACHEOSTOMY 01/18/17 . Assessment and Plan Disease Oriented Problem List: (1) Becca gangrene (2) Necrotizing fasciitis (3) Sepsis (4) Congestive heart failure Comment: EF 40% (5) STEFFEN (acute kidney injury) (6) Atrial flutter (7) Hospital-acquired pneumonia Comment: Sputum grew out Serratia on 01/14/17 . (8) Coronary artery disease (9) Diabetes mellitus (10) Neuropathy Comment: Probably from his DM . (11) GERD (gastroesophageal reflux disease) (12) Hypertension (13) Obesity (14) PTSD (post-traumatic stress disorder) (15) History of colonic polyps (16) B12 deficiency (17) Agent orange exposure (18) AICD (automatic cardioverter/defibrillator) present (19) S/P CABG x 3 Symptom Scale: (1) Pain 0-10 Scale: Unable to quantify Comment: Unclear if patient had any significant pain prior to development of his abscess. No known use of opiate analgesics. Possible current sources of pain would include postoperative pain; prolonged bedbound status; rectal tube; Capps catheter; soft restraints; vascular access lines; orotracheal and orogastric intubation's. . (2) Dyspnea 0-10 Scale: Unable to quantify Comment: Patient's dyspnea probably secondary to a combination of congestive heart failure and pneumonia. . (3) Encephalopathy 0-10 Scale: Unable to quantify Pertinent Non-Medical Issues Psychosocial: Patient has a mother and stepfather who live locally. Patient's mother is currently enrolled with hospice and reportedly has significant dementia. The patient has one surviving brother, but he reportedly has a head injury and dementia. There is a sonNeil-- who, according to the stepfather, is having lots of legal troubles and is difficult to contact at times. Spiritual: Mandaen and spirituality have not played an important role in the patient's life. Legal: No known advance directives. The patient's mother reportedly has significant dementia, and the patient's son is now functioning as the decision making proxy (although he is difficult to reach) Ethical issues impacting care: Patient is currently incapacitated to make his own health care decisions. It remains feasible that we can improve things enough to have him regain capacity. . Important Contacts * Anahi Mandel (mother ) [phone] * Camden White (stepfater) [phone] * Dell Mandel (son) : [phone] <--- DECISION-MAKER - 01/20/17 . Prognosis Mr. Mandel is on 100% disability for combination of his physical and mental health issues. He was driving and taking care of his ADLs and walking without any type of assistive device until this recent episode. The patient has a number of significant comorbidities. He has coronary artery disease status post CABG in 2012 and an ejection fraction of 40% with a history of congestive heart failure. He has diabetes, obesity, and is a long-term smoker. His decompensated heart failure seems to be the most prominent problem preventing him from improving here in the hospital. The business change manager believes that although ICU and hospital survival remain possible for this individual, it will be a lengthy, slow road to recovery. . Code Status: Full Code Plan * FULL CODE * DECISION-MAKING: The patient is currently incapacitated to make his own health care decisions. It is not known if and when he will acquire capacity to do so. As there is no legal spouse, the patient's adult childNeilis the proxy decision-maker; however, he is difficult to reach and often does not answer his phone. He has been here to visit his father and to provide consent for trach. The patient's mother reportedly has significant dementia and disorientation/confusion, and the patient's brother reportedly has experienced a head injury and dementia. I have left word with the patient's stepfather and the patient's nurse that Palliative Care should be called the next time contact is made with the patient's son Dell. * GOALS: the patient is unable to directly state his goals and we have no written documentation of any living will or other advanced directive. The patient's son Dell is acting as the decision making proxy now, having recently given consent for tracheostomy, and aggressive goals are being pursued.....pending a [id number] meeting with Dell eventually... * SYMPTOMS: PAIN -- the patient is receiving 1 or 2 doses of hydromorphone daily based on nonverbal pain cues, and he remains on propofol. DYSPNEA -- managed with propofol and mechanical ventilation. ENCEPHALOPATHY -- likely multifactorial, possibly some hypoactive delirium and/or a metabolic etiology. * Palliative care will continue to follow to assist with symptom management and to further clarify goals of medical treatment as the clinical course evolves. . Time Spent Total Floor Time (mins): 41 Face to Face Time (mins): 10 >50% Counseling/Coord of Care: Yes (d/w RN) Attestation To help prompt me to consider important information that might be impacting today's encounter and assessment, information from prior notes written by myself or my colleagues may have been "brought forward" into today's note. My signature on this note, however, is an attestation that I personally performed the exam, history, and/or decision-making noted today, and, unless otherwise indicated, the interactions with patient, family, and staff as well as the review of records all occurred today. I also attest that the listed assessment and stated plan reflect my best clinical judgment today based on the combination of historical information, prior notes, and today's exam/ interactions. When time spent is documented, it refers only to time spent today by the signer, or if indicated, combined time spent today by collaborating physician/nurse practitioner. Nithya Loera MD Jan 20, 2017 17:21
[2017-01-20] MEDS: hydrALAZINE HCL 20 MG/ML VIAL IV PUSH PRN (18:12)
[2017-01-20] MEDS: ATORVASTATIN 40 MG TAB PO SCH (20:54)
[2017-01-21] VITALS (18 sets, daily range): BP systolic 134–167; BP diastolic 67–76; PULSE 55–87; RESP 18; TEMP 98.5–99.8; O2SAT 93–100
[2017-01-21] MEDS: PROPOFOL 1000 MG/100 ML INJ 100 ML IV SCH ×2 (00:54→11:51)
[2017-01-21] MEDS: INSULIN NovoLIN REGULAR SUPPLEMENTAL SCALE SQ SCH ×4 (02:50→20:00)
[2017-01-21] MEDS: CHLORHEXIDINE GLUCONATE 2 % 1 PACK (2 CLOTHS) TOP SCH (04:00)
[2017-01-21] MEDS: hydrALAZINE HCL 25 MG TAB PO SCH ×3 (06:43→20:54)
[2017-01-21] MEDS: ISOSORBIDE DINITRATE 10 MG TAB PO SCH ×3 (06:43→20:54)
[2017-01-21] MEDS: HEPARIN SODIUM - SQ 10,000 UNITS/ML VIAL SQ SCH ×3 (06:44→20:53)
[2017-01-21] MEDS: METOCLOPRAMIDE HCL 10 MG/2 ML VIAL IV PUSH SCH ×2 (06:44→14:51)
[2017-01-21] MEDS: RESP: BUDESONIDE 0.5 MG/2 ML NEB NEB SCH ×2 (07:37→19:22)
[2017-01-21] MEDS: CHLORHEXIDINE 0.12% (ORAL KIT) 15 ML CUP MT SCH ×2 (08:00→20:29)
[2017-01-21] MEDS: SODIUM CHLORIDE 0.9% FLUSH 10 ML FLUSH SCH ×2 (09:00→20:30)
[2017-01-21] MEDS: ARTIFICIAL TEARS OPTH SOLN 15 ML BTL EACH EYE SCH ×3 (09:00→16:30)
[2017-01-21] MEDS: FAMOTIDINE 20 MG TAB PO SCH ×2 (09:08→20:53)
[2017-01-21] MEDS: SPIRONOLACTONE 25 MG TAB PO SCH (09:08)
[2017-01-21] MEDS: SENNOSIDES SYRUP 8.8 MG/5 ML CUP PO SCH ×2 (09:08→20:53)
[2017-01-21] MEDS: DOCUSATE SODIUM 100 MG/10 ML UDC G-TUBE SCH ×2 (09:08→20:53)
[2017-01-21] MEDS: QUEtiapine FUMARATE 100 MG TAB PO SCH ×3 (09:09→20:54)
[2017-01-21] MEDS: FUROSEMIDE 40 MG/4 ML VIAL IV PUSH SCH (09:09)
[2017-01-21] MEDS: INSULIN DETEMIR 100 UNITS/ML VIAL SQ SCH ×2 (09:09→20:55)
[2017-01-21] MEDS: CARVEDILOL 12.5 MG TAB PO SCH ×2 (09:09→20:54)
--- NOTE | 2017-01-21 09:33 | HHI.PR ---
Subjective Patient symptoms today Pt seen and examined. S/P trach on vent. Unable to ween as yet. Not responding to verbal stimuli per nursing staff. Objective Vital Signs Vital Signs Date Time Temp Pulse Resp B/P Pulse Ox O2 Delivery O2 Flow Rate FiO2 01/21/17 08:00 98.9 79 18 145/70 95 01/21/17 08:00 87 01/21/17 08:00 45 01/21/17 07:39 100 45 01/21/17 07:00 93 Mechanical Ventilator 45 01/21/17 06:00 73 01/21/17 04:11 100 45 01/21/17 04:00 45 01/21/17 04:00 99.1 79 18 144/67 93 01/21/17 04:00 79 01/21/17 02:00 76 01/21/17 01:10 97 45 01/21/17 00:00 45 01/21/17 00:00 99.1 70 18 144/72 98 01/21/17 00:00 70 01/20/17 22:00 85 01/20/17 20:00 89 01/20/17 20:00 100.3 89 18 152/74 98 01/20/17 20:00 98 Mechanical Ventilator 45 01/20/17 20:00 45 01/20/17 19:58 98 45 01/20/17 18:00 82 01/20/17 16:00 99.0 73 18 162/83 100 01/20/17 16:00 45 01/20/17 16:00 79 01/20/17 15:27 96 45 01/20/17 14:00 78 01/20/17 12:00 45 01/20/17 12:00 97.6 75 18 157/72 97 01/20/17 12:00 79 01/20/17 10:57 98 45 01/20/17 10:00 75 Intake & Output 01/21/17 01/21/17 07:00 19:00 Intake Total 1134 ml Output Total 1100 ml Balance 34 ml Intake Oral 0 ml IV Total 653 ml Tube Feeding 481 ml Output Urine Total 800 ml Stool Total 300 ml Result Diagram: 01/20/1719901/20/17199 Objective Remarks Abd:soft,nt,nd Capps: urine clear Wound: moderate drainage noted. Scrotal erythema improved. 12/30 Abd:soft,nt,nd Capps with clear urine Scrotal erythema improved. 12/31 Abd:soft,nt,nd Capps with clear urine Dressings in place. Ext: neg C/C/E 01/02 Abd:soft,nt,nd Wound: clean with kay drains in place. 01/03 Abd:soft,nt,nd Wound looks clean. Small kay drain removed. 01/06 Abd:soft,nt,nd Drains out 01/07 Abd:soft,nt,nd Wound looks good; healing 01/14 Abd:soft,nt,nd Wound: clean and healing. Wet/Dry dressing changes Leave fecal catch container in place 01/16 Abd:soft,nt,nd Wound: open without packing Fecal device in place 01/17 Abd:soft,nt,nd Wound: open without packing Fecal device in place 01/31 Abd:soft,nt,nd Wound: clean with packing present Medications and IVs Current Medications Medications (Trade) Dose Ordered Sig/Abdiel Route Start Time Stop Time Status Last Admin (NS Flush) 2 ml UNSCH PRN .XX 12/28/16 20:15 (NS Flush) 2 ml BID .XX 12/28/16 21:00 01/20/17 20:57 (Tylenol) 650 mg Q6H PRN PO 12/28/16 20:15 01/09/17 20:08 (Tears Naturale Opth Soln) 1 drop TID EACH EYE 12/29/16 09:00 01/21/17 09:00 (Zofran Inj) 4 mg Q6H PRN IV 12/28/16 20:15 (Colace Liq) 100 mg Q12H G-TUBE 12/28/16 21:00 01/21/17 09:08 (Heparin Inj) 5,000 units Q8H SQ 12/28/16 22:00 01/21/17 06:44 Miscellaneous Information 1 Q361D XX 12/28/16 20:15 12/29/16 00:29 (Chlorhexidine 2% Cloth) 3 pack Taper DAILY@04 TOP 12/29/16 04:00 12/25/17 03:59 01/21/17 04:00 (Chlorhexidine 2% Cloth) 3 pack UNSCH PRN TOP 12/28/16 20:15 (D50w (Vial) Inj) 25 ml UNSCH PRN IV PUSH 12/29/16 07:15 (Roxicodone) 5 mg Q4H PRN PO 12/29/16 15:00 01/13/17 03:14 (Lipitor) 40 mg HS PO 12/30/16 21:00 01/20/17 20:54 (Aldactone) 12.5 mg DAILY PO 12/31/16 09:00 01/21/17 09:08 (Pill Splitter) 1 ea UNSCH PRN OTHER 12/30/16 12:15 Chlorhexidine Gluconate 15 ml 15 ml BID@08,20 MT 12/31/16 20:00 01/21/17 08:00 (Diprivan 1000 Mg/100ml Inj) 100 ml @ 0 mls/hr TITRATE IV 12/31/16 16:00 01/21/17 00:54 (Trandate Inj) 10 mg Q1HR PRN IV PUSH 01/02/17 08:00 01/14/17 09:08 (Apresoline Inj) 10 mg Q1HR PRN IV PUSH 01/02/17 08:00 01/20/17 18:12 (Nitroglycerin 2% Oint) 2 inch Q6HR PRN TOPICAL 01/02/17 08:00 01/02/17 08:44 (Dilaudid Pf Inj) 1 mg Q2H PRN IV PUSH 01/02/17 16:00 01/19/17 03:03 (Coreg) 25 mg BID PO 01/03/17 09:00 01/21/17 09:09 (Senna Liq) 8.8 mg BID PO 01/03/17 09:00 01/21/17 09:08 (Apresoline) 25 mg Q8HR PO 01/03/17 06:30 01/21/17 06:43 (Isordil) 10 mg Q8HR PO 01/03/17 06:30 01/21/17 06:43 (Glycerin Adult Supp) 2 gm BID PRN RECTAL 01/04/17 21:00 (Reglan Inj) 5 mg Q8HR IV PUSH 01/05/17 06:30 01/21/17 06:44 Insulin Detemir 8 units 8 units Q12H SQ 01/11/17 09:00 01/21/17 09:09 Potassium Chloride 100 ml @ 50 mls/hr Q2H PRN IV 01/12/17 09:00 01/20/17 08:51 Potassium Chloride 100 ml @ 50 mls/hr Q2H PRN IV 01/12/17 09:00 Potassium Chloride 100 ml @ 25 mls/hr UNSCH PRN IV 01/12/17 09:00 01/17/17 18:16 Potassium Chloride 100 ml @ 50 mls/hr Q2H PRN IV 01/12/17 09:00 01/20/17 05:15 (Magnesium Sulfate Inj/NS Inj) 100 ml @ 50 mls/hr UNSCH PRN IV 01/12/17 09:00 Magnesium Oxide 800 mg 800 mg UNSCH PRN PO 01/12/17 09:00 (Magnesium Sulfate Inj/NS Inj) 100 ml @ 50 mls/hr UNSCH PRN IV 01/12/17 09:00 Potassium Phosphate 2000 mg 2,000 mg Q4H PRN PO 01/12/17 09:00 (Sodium Phosphate Inj/NS 250 ml Inj) 250 ml @ 42 mls/hr UNSCH PRN IV 01/12/17 09:00 Potassium Phosphate 2000 mg 2,000 mg UNSCH PRN PO/TUBE 01/12/17 09:00 (Potassium Phosphate Inj/NS 250 ml Inj) 260 ml @ 42 mls/hr UNSCH PRN IV 01/12/17 09:00 (NovoLIN R SUPPLEMENTAL SCALE) 1 Q6H SQ 01/13/17 14:00 01/21/17 02:50 (Pepcid) 10 mg BID PO 01/14/17 21:00 01/21/17 09:08 Furosemide 40 mg 40 mg DAILY IV PUSH 01/15/17 10:00 01/21/17 09:09 (Rocephin Inj/NS Inj) 100 ml @ 200 mls/hr Q24H IV 01/16/17 18:00 01/20/17 16:31 (SEROquel) 50 mg BID PO 01/20/17 10:30 01/21/17 09:09 Assessment and Plan Assessment and Plan 71-year-old male with perineal/rectal abscess; 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 Patient will require IR intervention for debridement with washout. Risk and benefits discussed and patient is willing to proceed. 12/29 71 y.o male s/p debridement and washout of necrotizing fascitis Will plan to return to OR tomorrow for washout NPO after MN 12/30 71 y.o. male s/p debridement with washout of necrotizing fascitis OR today for washout. NPO 12/31 71 y.o. male s/p debridement with washout of necrotizing fascitis For washout with closure tomorrow in OR. NPO 01/02 Stable s/p debridement and washout of necrotizing fascitis Extubate today per SICU attending Will remove kay in a few days. 01/03 Stable s/p debridement and washout of necrotizing fascitis For Bronchoscopy today. Hopeful extubation soon. Will remove kay drains over weekend. 01/06 Stable s/p debridement and washout of necrotizing fascitis with closure Extubate/Trach Void trial when OOB and ambulating 01/07 Stable s/p debridement and washout of necrotizing fascitis with closure Void trial in future Call with questions 01/14 Stable s/p debridement and washout of necrotizing fascitis with closure Will need to leave fecal collection system in place Wet/Dry dressing changes BID 01/16 Stable s/p debridement and washout of necrotizing fascitis with closure Will need to leave fecal collection system in place Wet/Dry dressing changes BID 01/17 Stable s/p debridement and washout of necrotizing fascitis with closure Leave fecal collection system in place Continue with wet/dry dressing changes BID 01/21 S/P debridement and washout of necrotizing fascitis with closure Continue to attempt to ween from vent Continue with daily dressing changes Tim Ling DO Jan 21, 2017 09:33
[2017-01-21] MEDS: cefTRIAXone INJ 2,000 MG in SODIUM CHLORIDE 0.9% INJ 100 ML IV SCH (16:30)
--- NOTE | 2017-01-21 17:25 | HHI.CCPN ---
Subjective Remarks/Hospital Course 71-year-old male presents for evaluation of testicular swelling. Approximately 10 days ago he was started on Aldactone for his blood pressure which. He also noted that her sugars has been slightly elevated. Denies any fevers. He has been feeling generally weak as well. Denied abdominal pain nausea vomiting or diarrhea. He thought the scrotal swelling was from the Aldactone and came into the emergency department to be evaluated. 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 remains intubated overnight. off vasopressors. 12/30: Much more comfortable. Back to OR for washout today. Breathing without distress. STEFFEN improving. Patient has dilated cardiomyopathy with severe systolic heart failure and EF 25-30% by last ECHO 2013. May need low-dose inotrope during course of therapy. 12/30 1800 hrs: Seen after OR today. He has full neck veins and light wheezes with basilar crackles. His underlying LV dysfunction requires that we treat this aggressively with diuretics and subsequent electrolyte replacement. Will move back to [facility]. 12/31: Required rapid response for 2nd time in 12 hours. Will need intubation due to severe systolic heart failure and pulmonary edema. 01/01: Afebrile. Remains nothing by mouth for planned washout today. Decreased urine output noted. Hypertensive with sedation vacation. 01/02: Yesterday with washout and debridement without complication. Continues to be in A. fib intermittently rate controlled. Hemodynamically stable. One bowel movement. Will try spontaneous breathing trials today and attempt to extubate. If unsuccessful will initiate tube feeding. 01/03: Tmax 99.2. Episode of desaturation overnight recording FiO2 100%. Currently back to 50%. Chest x-ray essentially stable. Small left pleural effusion. Low lung volumes. Remains in a flutter rate controlled. Imminently bradycardic. 3 bowel movements on 01/02. Tolerating tube feeding. 01/04: FiO2 currently at 50%. We'll check CT chest. Possible need pleural effusions. Remains in a flutter rate control. Intermittently bradycardic. No bowel movement yesterday. Tube feeds currently off for possible extubation but tolerating previously. Afebrile 01/05: Remains on FiO2 of 50%. CT chest revealed small bilateral pleural effusions otherwise unremarkable. Noted is currently rate controlled. No bowel movement. Tube feeds at goal. Afebrile. Intermittently follows commands. 01/06: FiO2 40%. Self extubated yesterday. Lasted about 20 Mr. for requiring intubation. Was on 100 percent nonrebreather. Saturations are 90%. During intubation, Ambu bag malfunctioned. Patient was quickly intubated and was arousable moving all 4 extremities prior to re-sedation. We'll attempt sedation vacation again today. 01/07: Remains ventilator dependent, failed extubation yesterday. Unable to wean today, weak. 01/08: Tolerating CPAP trials but unable to extubate. 01/09: Plan transfer to LTAC. 01/10: Continued improvement in renal function. Contraction alkalosis with diuresis. Will require LTAC. 01/11: Will need to get a fair amount of excess water off. Consider gtt. 01/11: Great response to bumex gtt. 01/13: Continue diuresis. Replete electrolytes. Reduce vent rate. 01/14: Diuresed 10 liters net balance. Replace lytes. Correct HCO3 with diamox. Wean vent. 01/15: Despite aggressive diuresis and clearing of CXR he does not tolerate extended SBTs. He will need a tracheostomy if family wishes to pursue aggressive care. 01/16: Serratia in sputum, afebrile. WBC 5600. CXR benign. 01/17: Needs trach for assisted weaning. Need to find family to consent. 01/18: Family has consented. Still fails weaning trials. Will perform trach. 01/19: Underwent percutaneous tracheostomy on 01/18. Remains on mechanical ventilation. 01/20: Remains on propofol for agitation. On mechanical ventilation via tracheostomy. Tolerating tube feeds. Subjective: 01/21: Objective Vital Signs Date Time Temp Pulse Resp B/P Pulse Ox O2 Delivery O2 Flow Rate FiO2 01/21/17 16:17 99 30 01/21/17 16:00 98.5 83 18 134/73 01/21/17 07:00 Mechanical Ventilator Intake and Output 01/20/17 01/20/17 01/21/17 08:00 16:00 00:00 Intake Total 1203 ml 855 ml 327 ml Output Total 370 ml 500 ml 425 ml Balance 833 ml 355 ml -98 ml Result Diagram: 01/20/17 0200 01/20/17 0200 Imaging Last Impressions Chest X-Ray 01/06/17 0600 Signed Impressions: Service Date/Time: Friday, January 06, 2017 04:21 - CONCLUSION: Cardiomegaly with bilateral pleural effusions and bibasilar infiltrates. The radiographic pattern is most consistent with pulmonary edema. Sushil Abdi Jr., MD Abdomen X-Ray 01/05/17 0000 Signed Impressions: Service Date/Time: Thursday, January 05, 2017 07:23 - CONCLUSION: Nasogastric tube across the GE junction with minimal gaseous distention. Aba Dick MD FACR Chest CT 01/04/17 0000 Signed Impressions: Service Date/Time: Wednesday, January 04, 2017 12:03 - CONCLUSION: 1. Consolidative changes with small bilateral pleural effusions in both bases. 2. Extensive coronary artery calcifications. Aba Dick MD FACR Renal Ultrasound 01/01/17 0000 Signed Impressions: Service Date/Time: Sunday, January 01, 2017 09:12 - CONCLUSION: Normal examination. Sushil Abdi Jr., MD Scrotum Ultrasound 12/28/16 1246 Signed Impressions: Service Date/Time: Wednesday, December 28, 2016 14:05 - CONCLUSION: 1. Marked thickening of the scrotal wall, up to 2.4 cm on the right. 2. Small complex left hydrocele. 3. Small complex cysts right testicle. Positive testicular blood flow. Nael Scott MD Abdomen/Pelvis CT 12/28/16 1237 Signed Impressions: Service Date/Time: Wednesday, December 28, 2016 14:52 - CONCLUSION: 1. 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 2. Mild bilateral inguinal adenopathy and marked scrotal wall thickening. 3. Fat-containing 5.7 cm umbilical hernia. 4. Atherosclerotic aorta with some displaced intimal calcifications but without significant aneurysm. No bowel obstruction. Mild ileus. Nael Scott MD Objective Remarks GENERAL: 71-year-old male SKIN: Warm and dry. HEAD: Normocephalic. EYES: Pupils are 2 mm bilaterally and reactive. NECK: Tracheostomy in place CARDIOVASCULAR: Irreg Irreg Intermittently paced. S1, S2 no S4. Without murmur RESPIRATORY: Diminished breath sounds bases. No wheezes. Few scattered rhonchi. Lots of secretions. GASTROINTESTINAL: Abdomen soft, non-tender, obese. Active bowel sounds appreciated. Umbilical hernia remains reducible MUSCULOSKELETAL: Currently with trace to 2+ bilateral lower extremity pitting edema. Foot pulses palpable. : Packing which is clean and dry in the groin. NEURO: Moves all 4 extremities spontaneously. Withdraws to pain. Follows commands intermittently. Very weak. 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 increase seroquel 100mg po q8hr. haldol 5mg iv q4h prn for breakthrough agitation melatonin 5mg po qhs for sleep provigil 100mg po daily. Not on home medications for underlying psychiatric diagnosis. wean off propofol. CV: Congestive heart failure/systolic ejection fraction 25% 2013 Limited echo EF 35-40% with akinesis apical myocardium History of CABG 4 Hypertension Dyslipidemia History of single-chamber defibrillator 08/19 due to positive EPS study Holding valsartan 320 mg by mouth daily for hypertension due to acute kidney injury Continue Lipitor 40 mg by mouth daily/home medication for dyslipidemia On Coreg 50 mg by mouth twice a day at home for hypertension - decreased to 25 twice a day yesterday with underlying bradycardia Continue hydralazine 25 3 times a day/Isordil 10 every 8 as adjuvant while creatinine elevated Milrinone was discontinued 01/01 due to dysrhythmias Echo 2013 - EF 25-30%. No regional wall motion abnormality. Left atrium dilated Limited echo 2016 reveals EF 35-40%. Akinesis apical myocardium. Left atrium mild dilatated. Mild MR. At home on Lasix 40 mg by mouth twice a day. On Lasix 40 mg IV daily Continue spironolactone 12.[address] Rob cardiology seen for for underlying atrial flutter. Likely ischemic workup Resp: Acute hypoxemic respiratory failure Ongoing tobaccoism PRVC. daily SBTs. continue to fail for respiratory rate and agitation. Ventilator bundle. Status post tracheostomy 01/18 Bronchodilator therapy every 4 hours and as needed Serratia in sputum with copious secretions. GI: Gastroesophageal reflux disease 5.7 cm umbilical hernia Glucerna 1.5 goal 55 cc an hour Pepcid 10 mg twice a day for GI prophylaxis. On Prilosec 20 mg by mouth daily at home Colace/senna twice a day for bowel regimen Umbilical hernia seen on CT is reducible. levemir bid : Becca's gangrene BPH Postop for Becca's gangrene/ necrotizing fasciitis posterior scrotum, perineum and right perirectal tissue Postop washout and debridement for his gangrene Postoperative washout and debridement. 12/28 revealed gas in his perineum/scrotum and the right gluteal cleft. Followed by urology/Dr. Ling Perineal wound with considerable drainage. Endo: Diabetes mellitus Gout Holding Tanzeum 50 mg subcutaneous weekly. Holding allopurinol 200 mg by mouth daily for gout Sliding scale insulin with Accu-Cheks every 6 hours to maintain euglycemia. 8 units of sliding scale insulin past 24 hours and started on Levemir 5 daily -> BID Renal: Acute kidney injury - baseline creatinine 1.[address] revealed no signs of hydronephrosis. Urine eosinophils negative. Renal ultrasound revealed no hydronephrosis No indications for hemodialysis at this point. Heme: Normocytic anemia Leukocytosis Daily CBC. Monitor trends Transfuse 2 units PRBCs during this hospital stay. No current indication for transfusion of blood at this time. ID: Becca's gangrene Group A beta strep UTI Unasyn 1.5 IV every 6 hours stopped 01/16 (switched to Rocephin per ID) Clindamycin 300 mg by mouth every 6 hours completed 01/02 Rocephin 2gm IV daily 01/16 Zyvox daily Pertinent cultures Sputum 01/14 - Serratia Sputum - 12/31 -no growth Abdomen abscess - 12/28 - Escherichia coli, E faecalis and coag negative staph Abdomen abscess - 12/28 - acid-fast bacilli/fungus negative Blood cultures 2 - 12/28 - no growth Urine culture - 12/28 -group A beta strep Infectious disease consulted. FEN: Hyper-magnesium Hypokalemia - resolved Hypernatremia Replace electrolytes as clinically indicated MSK: PT/OT evaluate and treat Access - Right IJ CVL day #10 placed 12/31 -> d/c - Left radial arterial line day placed 12/31 -> d/c -Left IJ CVL #8- will attempt to obtain 2 piv and d/c cvl today. Prophylaxis - GI - Pepcid - DVT - SCD/heparin subcutaneous Overall impression: Remains very weak, restricted by chronic poor cardiac function. s/p tracheostomy. Son reasserts full code status for patient. Noe Alaniz MD Jan 21, 2017 17:25
[2017-01-21] MEDS: MELATONIN 5 MG TAB PO SCH (20:53)
[2017-01-21] MEDS: ATORVASTATIN 40 MG TAB PO SCH (20:54)
[2017-01-22] VITALS (17 sets, daily range): BP systolic 122–208; BP diastolic 60–91; PULSE 65–112; RESP 14–22; TEMP 98.2–99.6; O2SAT 92–98
[2017-01-22] MEDS: INSULIN NovoLIN REGULAR SUPPLEMENTAL SCALE SQ SCH ×4 (02:00→20:00)
[2017-01-22] MEDS: CHLORHEXIDINE GLUCONATE 2 % 1 PACK (2 CLOTHS) TOP SCH (04:00)
[2017-01-22] MEDS: HEPARIN SODIUM - SQ 10,000 UNITS/ML VIAL SQ SCH ×3 (06:03→21:18)
[2017-01-22] MEDS: hydrALAZINE HCL 25 MG TAB PO SCH ×3 (06:03→21:18)
[2017-01-22] MEDS: QUEtiapine FUMARATE 100 MG TAB PO SCH ×3 (06:03→21:18)
[2017-01-22] MEDS: ISOSORBIDE DINITRATE 10 MG TAB PO SCH ×3 (06:03→21:18)
[2017-01-22] MEDS: RESP: BUDESONIDE 0.5 MG/2 ML NEB NEB SCH ×2 (08:09→19:27)
[2017-01-22] MEDS: DOCUSATE SODIUM 100 MG/10 ML UDC G-TUBE SCH ×2 (09:00→20:51)
[2017-01-22] MEDS: SENNOSIDES SYRUP 8.8 MG/5 ML CUP PO SCH ×2 (09:00→20:52)
[2017-01-22] MEDS ORDERED: MODAFINIL 200 MG TAB PO SCH (09:00)
[2017-01-22] MEDS: SODIUM CHLORIDE 0.9% FLUSH 10 ML FLUSH SCH ×2 (09:00→21:00)
[2017-01-22] MEDS: SPIRONOLACTONE 25 MG TAB PO SCH (09:27)
[2017-01-22] MEDS: INSULIN DETEMIR 100 UNITS/ML VIAL SQ SCH ×2 (09:29→21:17)
[2017-01-22] MEDS: CARVEDILOL 12.5 MG TAB PO SCH ×2 (09:29→20:51)
[2017-01-22] MEDS: FAMOTIDINE 20 MG TAB PO SCH ×2 (09:29→20:51)
[2017-01-22] MEDS: CHLORHEXIDINE 0.12% (ORAL KIT) 15 ML CUP MT SCH ×2 (09:30→21:17)
[2017-01-22] MEDS: ARTIFICIAL TEARS OPTH SOLN 15 ML BTL EACH EYE SCH ×3 (09:30→18:40)
[2017-01-22] MEDS: LABETALOL HCL 100 MG/20 ML VIAL IV PUSH PRN (09:31)
--- NOTE | 2017-01-22 10:43 | HHI.PR ---
Subjective Patient symptoms today Pt seen and examined. Still on vent buy eyes are open and he is moving. Objective Vital Signs Vital Signs Date Time Temp Pulse Resp B/P Pulse Ox O2 Delivery O2 Flow Rate FiO2 01/22/17 08:10 96 40 01/22/17 08:10 92 01/22/17 06:00 67 01/22/17 04:17 98 45 01/22/17 04:00 84 01/22/17 04:00 45 01/22/17 04:00 98.6 84 16 122/60 97 01/22/17 02:00 75 01/22/17 01:03 97 45 01/22/17 00:00 98.2 66 14 164/91 96 01/22/17 00:00 45 01/22/17 00:00 66 01/21/17 22:00 79 01/21/17 20:00 45 01/21/17 20:00 55 01/21/17 20:00 98.7 78 18 167/75 97 01/21/17 19:22 97 45 01/21/17 19:00 96 Mechanical Ventilator 45 01/21/17 18:00 66 01/21/17 17:08 97 45 01/21/17 16:17 99 30 01/21/17 16:00 98.5 83 18 134/73 95 01/21/17 16:00 45 01/21/17 16:00 78 01/21/17 14:00 73 01/21/17 12:00 79 01/21/17 12:00 99.8 78 18 164/76 97 01/21/17 12:00 45 Intake & Output 01/22/17 01/22/17 07:00 19:00 Intake Total 1127 ml Output Total 1200 ml Balance -73 ml IV Total 393 ml Tube Feeding 534 ml Other 200 ml Output Urine Total 1000 ml Stool Total 200 ml Result Diagram: 01/20/1719901/20/17199 Objective Remarks Abd:soft,nt,nd Capps: urine clear Wound: moderate drainage noted. Scrotal erythema improved. 12/30 Abd:soft,nt,nd Capps with clear urine Scrotal erythema improved. 12/31 Abd:soft,nt,nd Capps with clear urine Dressings in place. Ext: neg C/C/E 01/02 Abd:soft,nt,nd Wound: clean with kay drains in place. 01/03 Abd:soft,nt,nd Wound looks clean. Small kay drain removed. 01/06 Abd:soft,nt,nd Drains out 01/07 Abd:soft,nt,nd Wound looks good; healing 01/14 Abd:soft,nt,nd Wound: clean and healing. Wet/Dry dressing changes Leave fecal catch container in place 01/16 Abd:soft,nt,nd Wound: open without packing Fecal device in place 01/17 Abd:soft,nt,nd Wound: open without packing Fecal device in place 01/21 Abd:soft,nt,nd Wound: clean with packing present 01/22 Abd:soft,nt,nd Wound: clean with packing present Medications and IVs Current Medications Medications (Trade) Dose Ordered Sig/Abdiel Route Start Time Stop Time Status Last Admin (NS Flush) 2 ml UNSCH PRN .XX 12/28/16 20:15 (NS Flush) 2 ml BID .XX 12/28/16 21:00 01/21/17 20:30 (Tylenol) 650 mg Q6H PRN PO 12/28/16 20:15 01/09/17 20:08 (Tears Naturale Opth Soln) 1 drop TID EACH EYE 12/29/16 09:00 01/22/17 09:30 (Zofran Inj) 4 mg Q6H PRN IV 12/28/16 20:15 (Colace Liq) 100 mg Q12H G-TUBE 12/28/16 21:00 01/21/17 20:53 (Heparin Inj) 5,000 units Q8H SQ 12/28/16 22:00 01/22/17 06:03 Miscellaneous Information 1 Q361D XX 12/28/16 20:15 12/29/16 00:29 (Chlorhexidine 2% Cloth) Taper DAILY@04 TOP 12/29/16 04:00 12/25/17 03:59 01/22/17 04:00 (Chlorhexidine 2% Cloth) 3 pack UNSCH PRN TOP 12/28/16 20:15 (D50w (Vial) Inj) 25 ml UNSCH PRN IV PUSH 12/29/16 07:15 (Roxicodone) 5 mg Q4H PRN PO 12/29/16 15:00 01/13/17 03:14 (Lipitor) 40 mg HS PO 12/30/16 21:00 01/21/17 20:54 (Aldactone) 12.5 mg DAILY PO 12/31/16 09:00 01/22/17 09:27 (Pill Splitter) 1 ea UNSCH PRN OTHER 12/30/16 12:15 (Peridex 0.12% Liq) 15 ml BID@08,20 MT 12/31/16 20:00 01/22/17 09:30 (Trandate Inj) 10 mg Q1HR PRN IV PUSH 01/02/17 08:00 01/22/17 09:31 (Apresoline Inj) 10 mg Q1HR PRN IV PUSH 01/02/17 08:00 01/20/17 18:12 (Dilaudid Pf Inj) 1 mg Q2H PRN IV PUSH 01/02/17 16:00 01/19/17 03:03 (Coreg) 25 mg BID PO 01/03/17 09:00 01/22/17 09:29 (Senna Liq) 8.8 mg BID PO 01/03/17 09:00 01/21/17 20:53 (Apresoline) 25 mg Q8HR PO 01/03/17 06:30 01/22/17 06:03 (Isordil) 10 mg Q8HR PO 01/03/17 06:30 01/22/17 06:03 (Glycerin Adult Supp) 2 gm BID PRN RECTAL 01/04/17 21:00 Insulin Detemir 8 units 8 units Q12H SQ 01/11/17 09:00 01/22/17 09:29 Potassium Chloride 100 ml @ 50 mls/hr Q2H PRN IV 01/12/17 09:00 01/20/17 08:51 Potassium Chloride 100 ml @ 50 mls/hr Q2H PRN IV 01/12/17 09:00 Potassium Chloride 100 ml @ 25 mls/hr UNSCH PRN IV 01/12/17 09:00 01/17/17 18:16 Potassium Chloride 100 ml @ 50 mls/hr Q2H PRN IV 01/12/17 09:00 01/20/17 05:15 (Magnesium Sulfate Inj/NS Inj) 100 ml @ 50 mls/hr UNSCH PRN IV 01/12/17 09:00 Magnesium Oxide 800 mg 800 mg UNSCH PRN PO 01/12/17 09:00 (Magnesium Sulfate Inj/NS Inj) 100 ml @ 50 mls/hr UNSCH PRN IV 01/12/17 09:00 Potassium Phosphate 2000 mg 2,000 mg Q4H PRN PO 01/12/17 09:00 (Sodium Phosphate Inj/NS 250 ml Inj) 250 ml @ 42 mls/hr UNSCH PRN IV 01/12/17 09:00 Potassium Phosphate 2000 mg 2,000 mg UNSCH PRN PO/TUBE 01/12/17 09:00 (Potassium Phosphate Inj/NS 250 ml Inj) 260 ml @ 42 mls/hr UNSCH PRN IV 01/12/17 09:00 (NovoLIN R SUPPLEMENTAL SCALE) 1 Q6H SQ 01/13/17 14:00 01/21/17 02:50 (Pepcid) 10 mg BID PO 01/14/17 21:00 01/22/17 09:29 Furosemide 40 mg 40 mg DAILY IV PUSH 01/15/17 10:00 01/21/17 09:09 (Rocephin Inj/NS Inj) 100 ml @ 200 mls/hr Q24H IV 01/16/17 18:00 01/29/17 17:59 01/21/17 16:30 (SEROquel) 100 mg Q8HR PO 01/21/17 17:30 01/22/17 06:03 (Haldol Inj) 5 mg Q4H PRN IV 01/21/17 17:30 (Melatonin) 5 mg HS PO 01/21/17 21:00 01/21/17 20:53 (Provigil) 100 mg DAILY PO 01/22/17 09:00 01/22/17 09:27 Assessment and Plan Assessment and Plan 71-year-old male with perineal/rectal abscess; 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 Patient will require IR intervention for debridement with washout. Risk and benefits discussed and patient is willing to proceed. 12/29 71 y.o male s/p debridement and washout of necrotizing fascitis Will plan to return to OR tomorrow for washout NPO after MN 12/30 71 y.o. male s/p debridement with washout of necrotizing fascitis OR today for washout. NPO 12/31 71 y.o. male s/p debridement with washout of necrotizing fascitis For washout with closure tomorrow in OR. NPO 01/02 Stable s/p debridement and washout of necrotizing fascitis Extubate today per SICU attending Will remove kay in a few days. 01/03 Stable s/p debridement and washout of necrotizing fascitis For Bronchoscopy today. Hopeful extubation soon. Will remove kay drains over weekend. 01/06 Stable s/p debridement and washout of necrotizing fascitis with closure Extubate/Trach Void trial when OOB and ambulating 01/07 Stable s/p debridement and washout of necrotizing fascitis with closure Void trial in future Call with questions 01/14 Stable s/p debridement and washout of necrotizing fascitis with closure Will need to leave fecal collection system in place Wet/Dry dressing changes BID 01/16 Stable s/p debridement and washout of necrotizing fascitis with closure Will need to leave fecal collection system in place Wet/Dry dressing changes BID 01/17 Stable s/p debridement and washout of necrotizing fascitis with closure Leave fecal collection system in place Continue with wet/dry dressing changes BID 01/21 S/P debridement and washout of necrotizing fascitis with closure Continue to attempt to ween from vent Continue with daily dressing changes 01/22 S/P debridement and washout of necrotizing fascitis with closure Continue to attempt to ween from vent Continue with daily dressing changes Tim Ling DO Jan 22, 2017 10:43
[2017-01-22] MEDS: hydrALAZINE HCL 20 MG/ML VIAL IV PUSH PRN ×4 (11:07→23:00)
[2017-01-22] MEDS: FUROSEMIDE 40 MG/4 ML VIAL IV PUSH SCH (11:07)
--- NOTE | 2017-01-22 14:04 | HHI.HCPN ---
Reason for visit a. To assist with evaluation and management of symptoms including: b. To assist medical decision maker(s) with: better understanding of current medical conditions; weighing benefits/burdens of medical treatment options; making medical treatment decisions. Subjective/Interval History INTERVAL NOTE: The patient remains intubated, but is awake in the ISC. No recent cultures. Patient remains afebrile the past 48 hours. White count 5.4, GFR remains in the 50s. The patient's son Dell consented for the tracheostomy over the weekend. We have still not been able to see or talk to Dell. . Family/friend interactions Son Dell no answer on his phone . Advance Directives Living Will: Never completed Health Care Surrogate: Never completed Durable Power of Grinding Room Supervisor: Never completed Advance Directive Specifics Date completed: According to the patient's family and the primary care physician it does not appear the patient has ever completed an advanced directive. . Health Care Surrogate(s): There has never been designation of a health care surrogate. Documented care wishes: There is never been written documentation of health care goals/preferences. . Objective Vital Signs Date Time Temp Pulse Resp B/P Pulse Ox O2 Delivery O2 Flow Rate FiO2 01/22/17 11:17 93 45 01/22/17 08:10 96 40 01/22/17 08:10 92 01/22/17 06:00 67 01/22/17 04:17 98 45 01/22/17 04:00 84 01/22/17 04:00 45 01/22/17 04:00 98.6 84 16 122/60 97 01/22/17 02:00 75 01/22/17 01:03 97 45 01/22/17 00:00 98.2 66 14 164/91 96 01/22/17 00:00 45 01/22/17 00:00 66 01/21/17 22:00 79 01/21/17 20:00 45 01/21/17 20:00 55 01/21/17 20:00 98.7 78 18 167/75 97 01/21/17 19:22 97 45 01/21/17 19:00 96 Mechanical Ventilator 45 01/21/17 18:00 66 01/21/17 17:08 97 45 01/21/17 16:17 99 30 01/21/17 16:00 98.5 83 18 134/73 95 01/21/17 16:00 45 01/21/17 16:00 78 01/21/17 14:00 73 Intake & Output 01/22/17 01/22/17 07:00 19:00 Intake Total 1127 ml Output Total 1200 ml Balance -73 ml IV Total 393 ml Tube Feeding 534 ml Other 200 ml Output Urine Total 1000 ml Stool Total 200 ml Physical Exam CONSTITUTIONAL/GENERAL: This is an adequately nourished patient, in no apparent distress. Awake TUBES/LINES/DRAINS: Trach; left subclavian central line; rectal tube; Capps catheter; PEG; soft wrist restraints; SCDs SKIN: No jaundice, rashes, or lesions. There is a clean dry dressing over the surgical wound. The wound was not examined by me. Skin temperature appropriate. Not diaphoretic. EYES: Pupils equal and round and reactive. Extraocular movements intact. No scleral icterus. No injection or drainage. Fundi not examined. ENT: Seems to have adequate hearing. Nose without bleeding or purulent drainage. CARDIOVASCULAR: Irregular rhythm (monitor showing atrial flutter) without murmurs, gallops, or rubs. No JVD. Peripheral pulses weak. RESPIRATORY/CHEST: Symmetric, unlabored respirations. Breath sounds equal bilaterally. Scattered faint rhonchi. No wheezes, rales. GASTROINTESTINAL: Abdomen obese, soft, non-tender, nondistended. No hepato- splenomegaly, or palpable masses. No guarding. Bowel sounds present. GENITOURINARY: Without palpable bladder distension. Capps catheter in place. Wounds are covered by dressings MUSCULOSKELETAL: Extremities without clubbing, cyanosis. There is bilateral nonpitting hand edema. No mottling. NEUROLOGICAL: Awake, tracks me, follows simple commands. Shakes head "no" when asked about pain PSYCHIATRIC: Does not appear agitated or restless Diagnostic Tests Laboratory Laboratory Tests Test 01/20/17 02:00 White Blood Count 5.4 TH/MM3 (4.0-11.0) Red Blood Count 3.21 MIL/MM3 (4.50-5.90) Hemoglobin 8.9 GM/DL (13.0-17.0) Hematocrit 27.0 % (39.0-51.0) Mean Corpuscular Volume 84.0 FL (80.0-100.0) Mean Corpuscular Hemoglobin 27.8 PG (27.0-34.0) Mean Corpuscular Hemoglobin 33.1 % Concent (32.0-36.0) Red Cell Distribution Width 19.2 % (11.6-17.2) Platelet Count 176 TH/MM3 (150-450) Mean Platelet Volume 8.9 FL (7.0-11.0) Neutrophils (%) (Auto) 61.2 % (16.0-70.0) Lymphocytes (%) (Auto) 29.4 % (9.0-44.0) Monocytes (%) (Auto) 6.1 % (0.0-8.0) Eosinophils (%) (Auto) 2.9 % (0.0-4.0) Basophils (%) (Auto) 0.4 % (0.0-2.0) Neutrophils # (Auto) 3.3 TH/MM3 (1.8-7.7) Lymphocytes # (Auto) 1.6 TH/MM3 (1.0-4.8) Monocytes # (Auto) 0.3 TH/MM3 (0-0.9) Eosinophils # (Auto) 0.2 TH/MM3 (0-0.4) Basophils # (Auto) 0.0 TH/MM3 (0-0.2) CBC Comment DIFF FINAL Differential Comment Sodium Level 146 MEQ/L (136-145) Potassium Level 3.3 MEQ/L (3.5-5.1) Chloride Level 106 MEQ/L (98-107) Carbon Dioxide Level 34.6 MEQ/L (21.0-32.0) Anion Gap 5 MEQ/L (5-15) Blood Urea Nitrogen 31 MG/DL (7-18) Creatinine 1.27 MG/DL (0.60-1.30) Estimat Glomerular Filtration 56 ML/MIN (>89) Rate Random Glucose 134 MG/DL (74-106) Calcium Level 8.6 MG/DL (8.5-10.1) Magnesium Level 2.5 MG/DL (1.5-2.5) Total Bilirubin 0.4 MG/DL (0.2-1.0) Aspartate Amino Transf 29 U/L (15-37) (AST/SGOT) Alanine Aminotransferase 49 U/L (12-78) (ALT/SGPT) Alkaline Phosphatase 127 U/L (45-117) Total Protein 6.4 GM/DL (6.4-8.2) Albumin 2.3 GM/DL (3.4-5.0) Result Diagram: 01/20/17 0200 01/20/17 0200 Procedures * Central line placement. * I&D scrotal/perineal wound * Washout and debridement of wound * Intubation/mechanical ventilation * TRACHEOSTOMY 01/18/17 . Assessment and Plan Disease Oriented Problem List: (1) Becca gangrene (2) Necrotizing fasciitis (3) Sepsis (4) Congestive heart failure Comment: EF 40% (5) STEFFEN (acute kidney injury) (6) Atrial flutter (7) Hospital-acquired pneumonia Comment: Sputum grew out Serratia on 01/14/17 . (8) Coronary artery disease (9) Diabetes mellitus (10) Neuropathy Comment: Probably from his DM . (11) GERD (gastroesophageal reflux disease) (12) Hypertension (13) Obesity (14) PTSD (post-traumatic stress disorder) (15) History of colonic polyps (16) B12 deficiency (17) Agent orange exposure (18) AICD (automatic cardioverter/defibrillator) present (19) S/P CABG x 3 Symptom Scale: (1) Pain 0-10 Scale: Unable to quantify Comment: Unclear if patient had any significant pain prior to development of his abscess. No known use of opiate analgesics. Possible current sources of pain would include postoperative pain; prolonged bedbound status; rectal tube; Capps catheter; soft restraints; vascular access lines; orotracheal and orogastric intubation's. . (2) Dyspnea 0-10 Scale: Unable to quantify Comment: Patient's dyspnea probably secondary to a combination of congestive heart failure and pneumonia. . (3) Encephalopathy 0-10 Scale: Unable to quantify Pertinent Non-Medical Issues Psychosocial: Patient has a mother and stepfather who live locally. Patient's mother is currently enrolled with hospice and reportedly has significant dementia. The patient has one surviving brother, but he reportedly has a head injury and dementia. There is a sonNeil-- who, according to the stepfather, is having lots of legal troubles and is difficult to contact at times. Spiritual: [employer] and spirituality have not played an important role in the patient's life. Legal: No known advance directives. The patient's mother reportedly has significant dementia, and the patient's son is now functioning as the decision making proxy (although he is difficult to reach) Ethical issues impacting care: Patient is currently incapacitated to make his own health care decisions. It remains feasible that we can improve things enough to have him regain capacity. . Important Contacts * Anahi Mandel (mother ) [phone] * Camden White (stepfater) [phone] * Dell Mandel (son) : [phone] <--- DECISION-MAKER - 01/20/17 . Prognosis Mr. Mandel is on 100% disability for combination of his physical and mental health issues. He was driving and taking care of his ADLs and walking without any type of assistive device until this recent episode. The patient has a number of significant comorbidities. He has coronary artery disease status post CABG in 2012 and an ejection fraction of 40% with a history of congestive heart failure. He has diabetes, obesity, and is a long-term smoker. His decompensated heart failure seems to be the most prominent problem preventing him from improving here in the hospital. The soap slabber believes that although ICU and hospital survival remain possible for this individual, it will be a lengthy, slow road to recovery. . Code Status: Full Code Plan * FULL CODE * DECISION-MAKING: The patient lacks capacity for making health care decisions , but he is now more awake and it is possible he will regain that capacity. As there is no legal spouse, the patient's adult childNeilis the proxy decision -maker; however, he is difficult to reach and often does not answer his phone. He has been here to visit his father and to provide consent for trach. The patient's mother reportedly has significant dementia and disorientation/ confusion, and the patient's brother reportedly has experienced a head injury and dementia. I am still trying to meet up with the patient's son Dell. * GOALS: the patient is unable to directly state his goals and we have no written documentation of any living will or other advanced directive. The patient's son Dell is acting as the decision making proxy now, having recently given consent for tracheostomy, and aggressive goals are being pursued.....pending a [id number]-[id number] meeting with Dell eventually... * SYMPTOMS: PAIN -- the patient is receiving occasional hydromorphone, but he denies pain at the time of my visit ENCEPHALOPATHY -- likely multifactorial, possibly some hypoactive delirium and/or a metabolic etiology -- seems to be improving? * Palliative care will continue to follow to assist with symptom management and to further clarify goals of medical treatment as the clinical course evolves. . Time Spent Total Floor Time (mins): 28 Face to Face Time (mins): 10 >50% Counseling/Coord of Care: Yes Attestation To help prompt me to consider important information that might be impacting today's encounter and assessment, information from prior notes written by myself or my colleagues may have been "brought forward" into today's note. My signature on this note, however, is an attestation that I personally performed the exam, history, and/or decision-making noted today, and, unless otherwise indicated, the interactions with patient, family, and staff as well as the review of records all occurred today. I also attest that the listed assessment and stated plan reflect my best clinical judgment today based on the combination of historical information, prior notes, and today's exam/ interactions. When time spent is documented, it refers only to time spent today by the signer, or if indicated, combined time spent today by collaborating physician/nurse practitioner. Nithya Loera MD Jan 22, 2017 14:04
[2017-01-22] MEDS: HYDROmorphone HCL PF 1 MG/ML VIAL IV PUSH PRN ×3 (14:49→23:00)
--- NOTE | 2017-01-22 18:02 | HHI.CCPN ---
Subjective Remarks/Hospital Course 71-year-old male presents for evaluation of testicular swelling. Approximately 10 days ago he was started on Aldactone for his blood pressure which. He also noted that her sugars has been slightly elevated. Denies any fevers. He has been feeling generally weak as well. Denied abdominal pain nausea vomiting or diarrhea. He thought the scrotal swelling was from the Aldactone and came into the emergency department to be evaluated. 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 remains intubated overnight. off vasopressors. 12/30: Much more comfortable. Back to OR for washout today. Breathing without distress. STEFFEN improving. Patient has dilated cardiomyopathy with severe systolic heart failure and EF 25-30% by last ECHO 2013. May need low-dose inotrope during course of therapy. 12/30 1800 hrs: Seen after OR today. He has full neck veins and light wheezes with basilar crackles. His underlying LV dysfunction requires that we treat this aggressively with diuretics and subsequent electrolyte replacement. Will move back to [facility]. 12/31: Required rapid response for 2nd time in 12 hours. Will need intubation due to severe systolic heart failure and pulmonary edema. 01/01: Afebrile. Remains nothing by mouth for planned washout today. Decreased urine output noted. Hypertensive with sedation vacation. 01/02: Yesterday with washout and debridement without complication. Continues to be in A. fib intermittently rate controlled. Hemodynamically stable. One bowel movement. Will try spontaneous breathing trials today and attempt to extubate. If unsuccessful will initiate tube feeding. 01/03: Tmax 99.2. Episode of desaturation overnight recording FiO2 100%. Currently back to 50%. Chest x-ray essentially stable. Small left pleural effusion. Low lung volumes. Remains in a flutter rate controlled. Imminently bradycardic. 3 bowel movements on 01/02. Tolerating tube feeding. 01/04: FiO2 currently at 50%. We'll check CT chest. Possible need pleural effusions. Remains in a flutter rate control. Intermittently bradycardic. No bowel movement yesterday. Tube feeds currently off for possible extubation but tolerating previously. Afebrile 01/05: Remains on FiO2 of 50%. CT chest revealed small bilateral pleural effusions otherwise unremarkable. Noted is currently rate controlled. No bowel movement. Tube feeds at goal. Afebrile. Intermittently follows commands. 01/06: FiO2 40%. Self extubated yesterday. Lasted about 20 Mr. for requiring intubation. Was on 100 percent nonrebreather. Saturations are 90%. During intubation, Ambu bag malfunctioned. Patient was quickly intubated and was arousable moving all 4 extremities prior to re-sedation. We'll attempt sedation vacation again today. 01/07: Remains ventilator dependent, failed extubation yesterday. Unable to wean today, weak. 01/08: Tolerating CPAP trials but unable to extubate. 01/09: Plan transfer to LTAC. 01/10: Continued improvement in renal function. Contraction alkalosis with diuresis. Will require LTAC. 01/11: Will need to get a fair amount of excess water off. Consider gtt. 01/11: Great response to bumex gtt. 01/13: Continue diuresis. Replete electrolytes. Reduce vent rate. 01/14: Diuresed 10 liters net balance. Replace lytes. Correct HCO3 with diamox. Wean vent. 01/15: Despite aggressive diuresis and clearing of CXR he does not tolerate extended SBTs. He will need a tracheostomy if family wishes to pursue aggressive care. 01/16: Serratia in sputum, afebrile. WBC 5600. CXR benign. 01/17: Needs trach for half-way weaning. Need to find family to consent. 01/18: Family has consented. Still fails weaning trials. Will perform trach. 01/19: Underwent percutaneous tracheostomy on 01/18. Remains on mechanical ventilation. 01/20: Remains on propofol for agitation. On mechanical ventilation via tracheostomy. Tolerating tube feeds. Subjective: 01/22: off propofol. much less agitated today, but still some delirium and still CAM +. CPAP trials today. Objective Vital Signs Date Time Temp Pulse Resp B/P Pulse Ox O2 Delivery O2 Flow Rate FiO2 01/22/17 11:17 93 45 01/22/17 07:00 Mechanical Ventilator 01/22/17 06:00 67 01/22/17 04:00 98.6 16 122/60 Intake and Output 01/21/17 01/21/17 01/22/17 08:00 16:00 00:00 Intake Total 807 ml 507 ml 665 ml Output Total 675 ml 1100 ml 500 ml Balance 132 ml -593 ml 165 ml Result Diagram: 01/20/17 0200 01/20/17 0200 Imaging Last Impressions Chest X-Ray 01/06/17 0600 Signed Impressions: Service Date/Time: Friday, January 06, 2017 04:21 - CONCLUSION: Cardiomegaly with bilateral pleural effusions and bibasilar infiltrates. The radiographic pattern is most consistent with pulmonary edema. Sushil Abdi Jr., MD Abdomen X-Ray 01/05/17 0000 Signed Impressions: Service Date/Time: Thursday, January 05, 2017 07:23 - CONCLUSION: Nasogastric tube across the GE junction with minimal gaseous distention. Aba Dick MD FACR Chest CT 01/04/17 0000 Signed Impressions: Service Date/Time: Wednesday, January 04, 2017 12:03 - CONCLUSION: 1. Consolidative changes with small bilateral pleural effusions in both bases. 2. Extensive coronary artery calcifications. Aba Dick MD FACR Renal Ultrasound 01/01/17 0000 Signed Impressions: Service Date/Time: Sunday, January 01, 2017 09:12 - CONCLUSION: Normal examination. Sushil Abdi Jr., MD Scrotum Ultrasound 12/28/16 1246 Signed Impressions: Service Date/Time: Wednesday, December 28, 2016 14:05 - CONCLUSION: 1. Marked thickening of the scrotal wall, up to 2.4 cm on the right. 2. Small complex left hydrocele. 3. Small complex cysts right testicle. Positive testicular blood flow. Nael Scott MD Abdomen/Pelvis CT 12/28/16 1237 Signed Impressions: Service Date/Time: Wednesday, December 28, 2016 14:52 - CONCLUSION: 1. 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 2. Mild bilateral inguinal adenopathy and marked scrotal wall thickening. 3. Fat-containing 5.7 cm umbilical hernia. 4. Atherosclerotic aorta with some displaced intimal calcifications but without significant aneurysm. No bowel obstruction. Mild ileus. Nael Scott MD Objective Remarks GENERAL: 71-year-old male SKIN: Warm and dry. HEAD: Normocephalic. EYES: Pupils are 2 mm bilaterally and reactive. NECK: Tracheostomy in place CARDIOVASCULAR: Irreg Irreg Intermittently paced. S1, S2 no S4. Without murmur RESPIRATORY: Diminished breath sounds bases. No wheezes. Few scattered rhonchi. Lots of secretions. GASTROINTESTINAL: Abdomen soft, non-tender, obese. MUSCULOSKELETAL: Currently with trace to 1+ bilateral lower extremity pitting edema. Foot pulses palpable. NEURO: Moves all 4 extremities spontaneously. Withdraws to pain. Follows commands intermittently. Very weak. A/P Problem List: (1) Congestive heart failure ICD Code: I50.9 Status: Acute (2) Necrotizing fasciitis ICD Code: M72.6 Status: Acute (3) Becca gangrene ICD Code: N49.3 Status: Acute (4) Sepsis ICD Code: A41.9 Status: Acute Assessment and Plan Neuro/Psych: Acute toxic metabolic encephalopathy Posttraumatic stress disorder Depression/anxiety History of peripheral neuropathy Acute agitated delirium Daily sedation vacation. seroquel 100mg po q8hr. haldol 5mg iv q4h prn for breakthrough agitation melatonin 5mg po qhs for sleep increase provigil to 200mg po daily. Not on home medications for underlying psychiatric diagnosis. CV: Congestive heart failure/systolic ejection fraction 25% 2013 Limited echo EF 35-40% with akinesis apical myocardium History of CABG 4 Hypertension Dyslipidemia History of single-chamber defibrillator 08/19 due to positive EPS study Holding valsartan 320 mg by mouth daily for hypertension due to acute kidney injury Continue Lipitor 40 mg by mouth daily/home medication for dyslipidemia On Coreg 50 mg by mouth twice a day at home for hypertension - decreased to 25 twice a day yesterday with underlying bradycardia Continue hydralazine 25 3 times a day/Isordil 10 every 8 as adjuvant while creatinine elevated Milrinone was discontinued 01/01 due to dysrhythmias Echo 2013 - EF 25-30%. No regional wall motion abnormality. Left atrium dilated Limited echo 2016 reveals EF 35-40%. Akinesis apical myocardium. Left atrium mild dilatated. Mild MR. At home on Lasix 40 mg by mouth twice a day. change to Lasix 40mg po daily. Continue spironolactone 12.[address] Rob cardiology seen for for underlying atrial flutter. Likely ischemic workup Resp: Acute hypoxemic respiratory failure Ongoing tobaccoism PRVC. daily SBTs. continue to fail for respiratory rate and agitation. Ventilator bundle. Status post tracheostomy 01/18 Bronchodilator therapy every 4 hours and as needed Serratia in sputum with copious secretions. GI: Gastroesophageal reflux disease 5.7 cm umbilical hernia Glucerna 1.5 goal 55 cc an hour Pepcid 10 mg twice a day for GI prophylaxis. On Prilosec 20 mg by mouth daily at home Colace/senna twice a day for bowel regimen Umbilical hernia seen on CT is reducible. levemir bid : Becca's gangrene BPH Postop for Becca's gangrene/ necrotizing fasciitis posterior scrotum, perineum and right perirectal tissue Postop washout and debridement for his gangrene Postoperative washout and debridement. 12/28 revealed gas in his perineum/scrotum and the right gluteal cleft. Followed by urology/Dr. Ling Perineal wound with considerable drainage. Endo: Diabetes mellitus Gout Holding Tanzeum 50 mg subcutaneous weekly. Holding allopurinol 200 mg by mouth daily for gout Sliding scale insulin with Accu-Cheks every 6 hours to maintain euglycemia. 8 units of sliding scale insulin past 24 hours and started on Levemir 5 daily -> BID Renal: Acute kidney injury - baseline creatinine 1.[address] revealed no signs of hydronephrosis. Urine eosinophils negative. Renal ultrasound revealed no hydronephrosis No indications for hemodialysis at this point. Heme: Normocytic anemia Leukocytosis Daily CBC. Monitor trends Transfuse 2 units PRBCs during this hospital stay. No current indication for transfusion of blood at this time. ID: Becca's gangrene Group A beta strep UTI Unasyn 1.5 IV every 6 hours stopped 01/16 (switched to Rocephin per ID) Clindamycin 300 mg by mouth every 6 hours completed 01/02 Rocephin 2gm IV daily 01/16 Zyvox daily Pertinent cultures Sputum 01/14 - Serratia Sputum - 12/31 -no growth Abdomen abscess - 12/28 - Escherichia coli, E faecalis and coag negative staph Abdomen abscess - 12/28 - acid-fast bacilli/fungus negative Blood cultures 2 - 12/28 - no growth Urine culture - 12/28 -group A beta strep Infectious disease consulted. FEN: Hyper-magnesium Hypokalemia - resolved Hypernatremia Replace electrolytes as clinically indicated MSK: PT/OT evaluate and treat Access - Right IJ CVL day #10 placed 12/31 -> d/c - Left radial arterial line day placed 12/31 -> d/c -Left IJ CVL d/c 01/21 Prophylaxis - GI - Pepcid - DVT - SCD/heparin subcutaneous Overall impression: Remains very weak, restricted by chronic poor cardiac function. s/p tracheostomy. Son reasserts full code status for patient. Noe Alaniz MD Jan 22, 2017 18:02
[2017-01-22] MEDS: cefTRIAXone INJ 2,000 MG in SODIUM CHLORIDE 0.9% INJ 100 ML IV SCH (18:40)
[2017-01-22] MEDS: HALOPERIDOL LACTATE 5 MG/ML AMP IV PRN (20:50)
[2017-01-22] MEDS: ATORVASTATIN 40 MG TAB PO SCH (20:52)
[2017-01-22] MEDS: MELATONIN 5 MG TAB PO SCH (20:52)
[2017-01-23] VITALS (19 sets, daily range): BP systolic 111–188; BP diastolic 57–122; PULSE 69–105; RESP 16–24; TEMP 98.7–99.8; O2SAT 95–100
[2017-01-23] MEDS: INSULIN NovoLIN REGULAR SUPPLEMENTAL SCALE SQ SCH ×4 (02:00→21:05)
[2017-01-23] MEDS: CHLORHEXIDINE GLUCONATE 2 % 1 PACK (2 CLOTHS) TOP SCH (04:00)
[2017-01-23] MEDS: HEPARIN SODIUM - SQ 10,000 UNITS/ML VIAL SQ SCH ×3 (04:53→21:07)
[2017-01-23] MEDS: QUEtiapine FUMARATE 100 MG TAB PO SCH ×3 (04:54→21:07)
[2017-01-23] MEDS: hydrALAZINE HCL 25 MG TAB PO SCH ×3 (04:54→21:08)
[2017-01-23] MEDS: ISOSORBIDE DINITRATE 10 MG TAB PO SCH ×3 (04:54→21:07)
[2017-01-23 05:24] LABS: POTASSIUM 3.6 MEQ/L (3.5-5.1)
[2017-01-23] MEDS: RESP: BUDESONIDE 0.5 MG/2 ML NEB NEB SCH ×2 (07:37→19:50)
[2017-01-23] MEDS: SENNOSIDES SYRUP 8.8 MG/5 ML CUP PO SCH ×2 (08:34→19:40)
[2017-01-23] MEDS: CHLORHEXIDINE 0.12% (ORAL KIT) 15 ML CUP MT SCH ×2 (08:34→19:39)
[2017-01-23] MEDS: DOCUSATE SODIUM 100 MG/10 ML UDC G-TUBE SCH ×2 (08:34→19:40)
[2017-01-23] MEDS: hydrALAZINE HCL 20 MG/ML VIAL IV PUSH PRN ×2 (08:36→19:40)
[2017-01-23] MEDS: HALOPERIDOL LACTATE 5 MG/ML AMP IV PRN ×3 (08:36→19:40)
[2017-01-23] MEDS: FAMOTIDINE 20 MG TAB PO SCH ×2 (08:36→21:06)
[2017-01-23] MEDS: CARVEDILOL 12.5 MG TAB PO SCH ×2 (08:37→21:06)
[2017-01-23] MEDS: SPIRONOLACTONE 25 MG TAB PO SCH (08:37)
[2017-01-23] MEDS: MODAFINIL 200 MG TAB PO SCH (08:37)
[2017-01-23] MEDS: FUROSEMIDE 40 MG/5 ML UNIT DOSE CUP NG SCH (08:38)
[2017-01-23] MEDS: SODIUM CHLORIDE 0.9% FLUSH 10 ML FLUSH SCH ×2 (08:57→21:00)
[2017-01-23] MEDS: ARTIFICIAL TEARS OPTH SOLN 15 ML BTL EACH EYE SCH ×3 (08:58→17:50)
[2017-01-23] MEDS: INSULIN DETEMIR 100 UNITS/ML VIAL SQ SCH ×2 (09:00→21:05)
--- NOTE | 2017-01-23 11:48 | HHI.PR ---
Subjective Patient symptoms today Pt seen and examined. More awake. Objective Vital Signs Vital Signs Date Time Temp Pulse Resp B/P Pulse Ox O2 Delivery O2 Flow Rate FiO2 01/23/17 10:00 88 01/23/17 08:00 90 01/23/17 08:00 45 01/23/17 07:38 98 Ventilator 45 01/23/17 07:38 98 45 01/23/17 07:38 45 01/23/17 07:00 99 Mechanical Ventilator 45 01/23/17 06:00 78 01/23/17 04:00 99.0 90 16 188/84 99 01/23/17 04:00 45 01/23/17 04:00 90 01/23/17 03:46 98 45 01/23/17 02:00 83 01/23/17 01:05 97 45 01/23/17 00:00 99.1 69 18 111/57 99 01/23/17 00:00 45 01/23/17 00:00 69 01/22/17 22:00 88 01/22/17 20:00 45 01/22/17 20:00 99.3 85 18 164/75 95 01/22/17 20:00 85 01/22/17 19:27 98 45 01/22/17 19:00 96 Mechanical Ventilator 45 01/22/17 18:00 90 01/22/17 16:00 99.5 96 19 208/91 92 01/22/17 16:00 45 01/22/17 16:00 96 01/22/17 14:00 100 01/22/17 12:00 99.6 98 22 155/87 96 01/22/17 12:00 45 01/22/17 12:00 98 Intake & Output 01/23/17 01/23/17 07:00 19:00 Intake Total 865 ml Output Total 1200 ml Balance -335 ml Tube Feeding 665 ml Other 200 ml Output Urine Total 1000 ml Stool Total 200 ml Result Diagram: 01/20/17 0200 01/23/17 030 Objective Remarks Abd:soft,nt,nd Capps: urine clear Wound: moderate drainage noted. Scrotal erythema improved. 12/30 Abd:soft,nt,nd Capps with clear urine Scrotal erythema improved. 12/31 Abd:soft,nt,nd Capps with clear urine Dressings in place. Ext: neg C/C/E 01/02 Abd:soft,nt,nd Wound: clean with kay drains in place. 01/03 Abd:soft,nt,nd Wound looks clean. Small kay drain removed. 01/06 Abd:soft,nt,nd Drains out 01/07 Abd:soft,nt,nd Wound looks good; healing 01/14 Abd:soft,nt,nd Wound: clean and healing. Wet/Dry dressing changes Leave fecal catch container in place 01/16 Abd:soft,nt,nd Wound: open without packing Fecal device in place 01/17 Abd:soft,nt,nd Wound: open without packing Fecal device in place 01/21 Abd:soft,nt,nd Wound: clean with packing present 01/22 Abd:soft,nt,nd Wound: clean with packing present 01/23 Abd:soft,nt,nd Wound: clean with packing present Medications and IVs Current Medications Medications (Trade) Dose Ordered Sig/Abdiel Route Start Time Stop Time Status Last Admin (NS Flush) 2 ml UNSCH PRN .XX 12/28/16 20:15 (NS Flush) 2 ml BID .XX 12/28/16 21:00 01/23/17 08:57 (Tylenol) 650 mg Q6H PRN PO 12/28/16 20:15 01/09/17 20:08 (Tears Naturale Opth Soln) 1 drop TID EACH EYE 12/29/16 09:00 01/23/17 08:58 (Zofran Inj) 4 mg Q6H PRN IV 12/28/16 20:15 01/23/17 08:37 (Colace Liq) 100 mg Q12H G-TUBE 12/28/16 21:00 01/23/17 08:34 (Heparin Inj) 5,000 units Q8H SQ 12/28/16 22:00 01/23/17 04:53 Miscellaneous Information 1 Q361D XX 12/28/16 20:15 12/29/16 00:29 (Chlorhexidine 2% Cloth) Taper DAILY@04 TOP 12/29/16 04:00 12/25/17 03:59 01/23/17 04:00 (Chlorhexidine 2% Cloth) 3 pack UNSCH PRN TOP 12/28/16 20:15 (D50w (Vial) Inj) 25 ml UNSCH PRN IV PUSH 12/29/16 07:15 (Roxicodone) 5 mg Q4H PRN PO 12/29/16 15:00 01/22/17 20:49 (Lipitor) 40 mg HS PO 12/30/16 21:00 01/22/17 20:52 (Aldactone) 12.5 mg DAILY PO 12/31/16 09:00 01/23/17 08:37 (Pill Splitter) 1 ea UNSCH PRN OTHER 12/30/16 12:15 (Peridex 0.12% Liq) 15 ml BID@08,20 MT 12/31/16 20:00 01/23/17 08:34 (Trandate Inj) 10 mg Q1HR PRN IV PUSH 01/02/17 08:00 01/22/17 09:31 (Apresoline Inj) 10 mg Q1HR PRN IV PUSH 01/02/17 08:00 01/23/17 08:36 (Dilaudid Pf Inj) 1 mg Q2H PRN IV PUSH 01/02/17 16:00 01/22/17 23:00 (Coreg) 25 mg BID PO 01/03/17 09:00 01/23/17 08:37 (Senna Liq) 8.8 mg BID PO 01/03/17 09:00 01/23/17 08:34 (Apresoline) 25 mg Q8HR PO 01/03/17 06:30 01/23/17 04:54 (Isordil) 10 mg Q8HR PO 01/03/17 06:30 01/23/17 04:54 (Glycerin Adult Supp) 2 gm BID PRN RECTAL 01/04/17 21:00 Insulin Detemir 8 units 8 units Q12H SQ 01/11/17 09:00 01/22/17 21:17 Potassium Chloride 100 ml @ 50 mls/hr Q2H PRN IV 01/12/17 09:00 01/20/17 08:51 Potassium Chloride 100 ml @ 50 mls/hr Q2H PRN IV 01/12/17 09:00 Potassium Chloride 100 ml @ 25 mls/hr UNSCH PRN IV 01/12/17 09:00 01/17/17 18:16 Potassium Chloride 100 ml @ 50 mls/hr Q2H PRN IV 01/12/17 09:00 01/20/17 05:15 (Magnesium Sulfate Inj/NS Inj) 100 ml @ 50 mls/hr UNSCH PRN IV 01/12/17 09:00 Magnesium Oxide 800 mg 800 mg UNSCH PRN PO 01/12/17 09:00 (Magnesium Sulfate Inj/NS Inj) 100 ml @ 50 mls/hr UNSCH PRN IV 01/12/17 09:00 Potassium Phosphate 2000 mg 2,000 mg Q4H PRN PO 01/12/17 09:00 (Sodium Phosphate Inj/NS 250 ml Inj) 250 ml @ 42 mls/hr UNSCH PRN IV 01/12/17 09:00 Potassium Phosphate 2000 mg 2,000 mg UNSCH PRN PO/TUBE 01/12/17 09:00 (Potassium Phosphate Inj/NS 250 ml Inj) 260 ml @ 42 mls/hr UNSCH PRN IV 01/12/17 09:00 (NovoLIN R SUPPLEMENTAL SCALE) 1 Q6H SQ 01/13/17 14:00 01/22/17 15:39 Famotidine 10 mg 10 mg BID PO 01/14/17 21:00 01/23/17 08:36 (Rocephin Inj/NS Inj) 100 ml @ 200 mls/hr Q24H IV 01/16/17 18:00 01/29/17 17:59 01/22/17 18:40 (SEROquel) 100 mg Q8HR PO 01/21/17 17:30 01/23/17 04:54 (Haldol Inj) 5 mg Q4H PRN IV 01/21/17 17:30 01/23/17 08:36 (Melatonin) 5 mg HS PO 01/21/17 21:00 01/22/17 20:52 (Provigil) 200 mg DAILY PO 01/23/17 09:00 01/23/17 08:37 (Lasix Liq) 40 mg DAILY NG 01/23/17 09:00 01/23/17 08:38 Assessment and Plan Assessment and Plan 71-year-old male with perineal/rectal abscess; 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 Patient will require IR intervention for debridement with washout. Risk and benefits discussed and patient is willing to proceed. 12/29 71 y.o male s/p debridement and washout of necrotizing fascitis Will plan to return to OR tomorrow for washout NPO after MN 12/30 71 y.o. male s/p debridement with washout of necrotizing fascitis OR today for washout. NPO 12/31 71 y.o. male s/p debridement with washout of necrotizing fascitis For washout with closure tomorrow in OR. NPO 01/02 Stable s/p debridement and washout of necrotizing fascitis Extubate today per SICU attending Will remove kay in a few days. 01/03 Stable s/p debridement and washout of necrotizing fascitis For Bronchoscopy today. Hopeful extubation soon. Will remove kay drains over weekend. 01/06 Stable s/p debridement and washout of necrotizing fascitis with closure Extubate/Trach Void trial when OOB and ambulating 01/07 Stable s/p debridement and washout of necrotizing fascitis with closure Void trial in future Call with questions 01/14 Stable s/p debridement and washout of necrotizing fascitis with closure Will need to leave fecal collection system in place Wet/Dry dressing changes BID 01/16 Stable s/p debridement and washout of necrotizing fascitis with closure Will need to leave fecal collection system in place Wet/Dry dressing changes BID 01/17 Stable s/p debridement and washout of necrotizing fascitis with closure Leave fecal collection system in place Continue with wet/dry dressing changes BID 01/21 S/P debridement and washout of necrotizing fascitis with closure Continue to attempt to ween from vent Continue with daily dressing changes 01/22 S/P debridement and washout of necrotizing fascitis with closure Continue to attempt to ween from vent Continue with daily dressing changes 01/23 S/P debridement and washout of necrotizing fascitis with closure Continue to attempt to ween from vent Continue with daily dressing changes Wound care consult Tim Ling DO Jan 23, 2017 11:48
--- NOTE | 2017-01-23 12:53 | HHI.PR ---
Addendum to Inpatient Note Addendum Reason: Additional Documentation Additional Information Patient d/w : stop date entered. Will sign off please call back if any change in clinical condition or questions. Joan Woods MD Jan 23, 2017 12:53
[2017-01-23] MEDS: cefTRIAXone INJ 2,000 MG in SODIUM CHLORIDE 0.9% INJ 100 ML IV SCH (17:49)
--- NOTE | 2017-01-23 19:55 | HHI.CCPN ---
Subjective Remarks/Hospital Course 71-year-old male presents for evaluation of testicular swelling. Approximately 10 days ago he was started on Aldactone for his blood pressure which. He also noted that her sugars has been slightly elevated. Denies any fevers. He has been feeling generally weak as well. Denied abdominal pain nausea vomiting or diarrhea. He thought the scrotal swelling was from the Aldactone and came into the emergency department to be evaluated. 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 remains intubated overnight. off vasopressors. 12/30: Much more comfortable. Back to OR for washout today. Breathing without distress. STEFFEN improving. Patient has dilated cardiomyopathy with severe systolic heart failure and EF 25-30% by last ECHO 2013. May need low-dose inotrope during course of therapy. 12/30 1800 hrs: Seen after OR today. He has full neck veins and light wheezes with basilar crackles. His underlying LV dysfunction requires that we treat this aggressively with diuretics and subsequent electrolyte replacement. Will move back to [facility]. 12/31: Required rapid response for 2nd time in 12 hours. Will need intubation due to severe systolic heart failure and pulmonary edema. 01/01: Afebrile. Remains nothing by mouth for planned washout today. Decreased urine output noted. Hypertensive with sedation vacation. 01/02: Yesterday with washout and debridement without complication. Continues to be in A. fib intermittently rate controlled. Hemodynamically stable. One bowel movement. Will try spontaneous breathing trials today and attempt to extubate. If unsuccessful will initiate tube feeding. 01/03: Tmax 99.2. Episode of desaturation overnight recording FiO2 100%. Currently back to 50%. Chest x-ray essentially stable. Small left pleural effusion. Low lung volumes. Remains in a flutter rate controlled. Imminently bradycardic. 3 bowel movements on 01/02. Tolerating tube feeding. 01/04: FiO2 currently at 50%. We'll check CT chest. Possible need pleural effusions. Remains in a flutter rate control. Intermittently bradycardic. No bowel movement yesterday. Tube feeds currently off for possible extubation but tolerating previously. Afebrile 01/05: Remains on FiO2 of 50%. CT chest revealed small bilateral pleural effusions otherwise unremarkable. Noted is currently rate controlled. No bowel movement. Tube feeds at goal. Afebrile. Intermittently follows commands. 01/06: FiO2 40%. Self extubated yesterday. Lasted about 20 Mr. for requiring intubation. Was on 100 percent nonrebreather. Saturations are 90%. During intubation, Ambu bag malfunctioned. Patient was quickly intubated and was arousable moving all 4 extremities prior to re-sedation. We'll attempt sedation vacation again today. 01/07: Remains ventilator dependent, failed extubation yesterday. Unable to wean today, weak. 01/08: Tolerating CPAP trials but unable to extubate. 01/09: Plan transfer to LTAC. 01/10: Continued improvement in renal function. Contraction alkalosis with diuresis. Will require LTAC. 01/11: Will need to get a fair amount of excess water off. Consider gtt. 01/11: Great response to bumex gtt. 01/13: Continue diuresis. Replete electrolytes. Reduce vent rate. 01/14: Diuresed 10 liters net balance. Replace lytes. Correct HCO3 with diamox. Wean vent. 01/15: Despite aggressive diuresis and clearing of CXR he does not tolerate extended SBTs. He will need a tracheostomy if family wishes to pursue aggressive care. 01/16: Serratia in sputum, afebrile. WBC 5600. CXR benign. 01/17: Needs trach for fpc weaning. Need to find family to consent. 01/18: Family has consented. Still fails weaning trials. Will perform trach. 01/19: Underwent percutaneous tracheostomy on 01/18. Remains on mechanical ventilation. 01/20: Remains on propofol for agitation. On mechanical ventilation via tracheostomy. Tolerating tube feeds. 01/22: off propofol. much less agitated today, but still some delirium and still CAM +. CPAP trials today. Subjective: 01/23: more agitated today. very CAM +. still failing CPAP trials for tachycardia and agitation. Objective Vital Signs Date Time Temp Pulse Resp B/P Pulse Ox O2 Delivery O2 Flow Rate FiO2 01/23/17 18:00 95 01/23/17 16:10 97 45 01/23/17 16:00 99.8 24 176/122 01/23/17 07:38 Ventilator Intake and Output 01/22/17 01/22/17 01/23/17 08:00 16:00 00:00 Intake Total 462 ml 444 ml 333 ml Output Total 700 ml 2000 ml 600 ml Balance -238 ml -1556 ml -267 ml Result Diagram: 01/20/17 0200 01/23/17 0302 Imaging Last Impressions Chest X-Ray 01/06/17 0600 Signed Impressions: Service Date/Time: Friday, January 06, 2017 04:21 - CONCLUSION: Cardiomegaly with bilateral pleural effusions and bibasilar infiltrates. The radiographic pattern is most consistent with pulmonary edema. Sushil Abdi Jr., MD Abdomen X-Ray 01/05/17 0000 Signed Impressions: Service Date/Time: Thursday, January 05, 2017 07:23 - CONCLUSION: Nasogastric tube across the GE junction with minimal gaseous distention. Aba Dick MD FACR Chest CT 01/04/17 0000 Signed Impressions: Service Date/Time: Wednesday, January 04, 2017 12:03 - CONCLUSION: 1. Consolidative changes with small bilateral pleural effusions in both bases. 2. Extensive coronary artery calcifications. Aba Dick MD FACR Renal Ultrasound 01/01/17 0000 Signed Impressions: Service Date/Time: Sunday, January 01, 2017 09:12 - CONCLUSION: Normal examination. Sushil Abdi Jr., MD Scrotum Ultrasound 12/28/16 1246 Signed Impressions: Service Date/Time: Wednesday, December 28, 2016 14:05 - CONCLUSION: 1. Marked thickening of the scrotal wall, up to 2.4 cm on the right. 2. Small complex left hydrocele. 3. Small complex cysts right testicle. Positive testicular blood flow. Nael Scott MD Abdomen/Pelvis CT 12/28/16 1237 Signed Impressions: Service Date/Time: Wednesday, December 28, 2016 14:52 - CONCLUSION: 1. 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 2. Mild bilateral inguinal adenopathy and marked scrotal wall thickening. 3. Fat-containing 5.7 cm umbilical hernia. 4. Atherosclerotic aorta with some displaced intimal calcifications but without significant aneurysm. No bowel obstruction. Mild ileus. Nael Scott MD Objective Remarks GENERAL: 71-year-old male SKIN: Warm and dry. HEAD: Normocephalic. EYES: Pupils are 2 mm bilaterally and reactive. NECK: Tracheostomy in place CARDIOVASCULAR: Irreg Irreg Intermittently paced. S1, S2 no S4. Without murmur RESPIRATORY: Diminished breath sounds bases. No wheezes. Few scattered rhonchi. Lots of secretions. GASTROINTESTINAL: Abdomen soft, non-tender, obese. MUSCULOSKELETAL: Currently with trace to 1+ bilateral lower extremity pitting edema. Foot pulses palpable. NEURO: Moves all 4 extremities spontaneously. Withdraws to pain. Follows commands intermittently. Very weak. RASS +1. CAM +. 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 Daily sedation vacation. seroquel 100mg po q8hr. haldol 5mg iv q4h prn for breakthrough agitation melatonin 5mg po qhs for sleep provigil 200mg po daily. --add tizanidine 2mg po q12h. Not on home medications for underlying psychiatric diagnosis. CV: Congestive heart failure/systolic ejection fraction 25% 2013 Limited echo EF 35-40% with akinesis apical myocardium History of CABG 4 Hypertension Dyslipidemia History of single-chamber defibrillator 08/19 due to positive EPS study Holding valsartan 320 mg by mouth daily for hypertension due to acute kidney injury Continue Lipitor 40 mg by mouth daily/home medication for dyslipidemia On Coreg 25 mg q12h. Continue hydralazine 25 3 times a day/Isordil 10 every 8 as adjuvant while creatinine elevated Milrinone was discontinued 01/01 due to dysrhythmias Echo 2013 - EF 25-30%. No regional wall motion abnormality. Left atrium dilated Limited echo 2016 reveals EF 35-40%. Akinesis apical myocardium. Left atrium mild dilatated. Mild MR. Lasix 40 mg daily Continue spironolactone 12.[address] Rob cardiology seen for for underlying atrial flutter. Likely ischemic workup Resp: Acute hypoxemic respiratory failure Ongoing tobaccoism daily SBTs. continue to fail for respiratory rate and agitation. Ventilator bundle. Status post tracheostomy 01/18 Bronchodilator therapy every 4 hours and as needed Serratia in sputum with copious secretions. GI: Gastroesophageal reflux disease 5.7 cm umbilical hernia Glucerna 1.5 goal 55 cc an hour Pepcid 10 mg twice a day for GI prophylaxis. On Prilosec 20 mg by mouth daily at home Colace/senna twice a day for bowel regimen Umbilical hernia seen on CT is reducible. levemir bid : Becca's gangrene BPH Postop for Becca's gangrene/ necrotizing fasciitis posterior scrotum, perineum and right perirectal tissue Postop washout and debridement for his gangrene Postoperative washout and debridement. 12/28 revealed gas in his perineum/scrotum and the right gluteal cleft. Followed by urology/Dr. Ling Perineal wound with considerable drainage. Endo: Diabetes mellitus Gout Holding Tanzeum 50 mg subcutaneous weekly. Holding allopurinol 200 mg by mouth daily for gout Sliding scale insulin with Accu-Cheks every 6 hours to maintain euglycemia. 8 units of sliding scale insulin past 24 hours and started on Levemir 5 daily -> BID Renal: Acute kidney injury - baseline creatinine 1.[address] revealed no signs of hydronephrosis. Urine eosinophils negative. Renal ultrasound revealed no hydronephrosis No indications for hemodialysis at this point. Heme: Normocytic anemia Leukocytosis Daily CBC. Monitor trends Transfuse 2 units PRBCs during this hospital stay. No current indication for transfusion of blood at this time. ID: Becca's gangrene Group A beta strep UTI Unasyn 1.5 IV every 6 hours stopped 01/16 (switched to Rocephin per ID) Clindamycin 300 mg by mouth every 6 hours completed 01/02 Rocephin 2gm IV daily 01/16, anticipated stop date 01/29 Pertinent cultures Sputum 01/14 - Serratia Sputum - 12/31 -no growth Abdomen abscess - 12/28 - Escherichia coli, E faecalis and coag negative staph Abdomen abscess - 12/28 - acid-fast bacilli/fungus negative Blood cultures 2 - 12/28 - no growth Urine culture - 12/28 -group A beta strep Infectious disease consulted, signed off with anticipated abx stop date 01/29 FEN: Hyper-magnesium Hypokalemia - resolved Hypernatremia Replace electrolytes as clinically indicated MSK: PT/OT evaluate and treat Access - Right IJ CVL day #10 placed 12/31 -> d/c - Left radial arterial line day placed 12/31 -> d/c -Left IJ CVL d/c 01/21 Prophylaxis - GI - Pepcid - DVT - SCD/heparin subcutaneous Overall impression: Remains very weak, restricted by chronic poor cardiac function. s/p tracheostomy. Son reasserts full code status for patient. Noe Alaniz MD Jan 23, 2017 19:55
[2017-01-23] MEDS: ATORVASTATIN 40 MG TAB PO SCH (21:05)
[2017-01-23] MEDS: MELATONIN 5 MG TAB PO SCH (21:06)
[2017-01-24] VITALS (19 sets, daily range): BP systolic 109–211; BP diastolic 59–102; PULSE 68–122; RESP 14–26; TEMP 98.7–99.3; O2SAT 92–99
[2017-01-24] MEDS: INSULIN NovoLIN REGULAR SUPPLEMENTAL SCALE SQ SCH ×4 (02:00→20:00)
[2017-01-24] MEDS: CHLORHEXIDINE GLUCONATE 2 % 1 PACK (2 CLOTHS) TOP SCH (04:00)
[2017-01-24 04:57] LABS: BICARBONATE 31.6 MEQ/L (21.0-32.0); POTASSIUM 3.7 MEQ/L (3.5-5.1)
[2017-01-24] MEDS: HEPARIN SODIUM - SQ 10,000 UNITS/ML VIAL SQ SCH ×3 (04:59→21:40)
[2017-01-24] MEDS: QUEtiapine FUMARATE 100 MG TAB PO SCH ×3 (05:00→21:44)
[2017-01-24] MEDS: ISOSORBIDE DINITRATE 10 MG TAB PO SCH ×3 (05:00→21:45)
[2017-01-24] MEDS: hydrALAZINE HCL 25 MG TAB PO SCH ×3 (05:00→21:39)
[2017-01-24] MEDS: RESP: BUDESONIDE 0.5 MG/2 ML NEB NEB SCH ×2 (07:37→19:59)
[2017-01-24] MEDS: ARTIFICIAL TEARS OPTH SOLN 15 ML BTL EACH EYE SCH ×3 (09:25→18:48)
[2017-01-24] MEDS: CHLORHEXIDINE 0.12% (ORAL KIT) 15 ML CUP MT SCH ×2 (09:25→22:13)
[2017-01-24] MEDS: DOCUSATE SODIUM 100 MG/10 ML UDC G-TUBE SCH ×2 (09:40→21:39)
[2017-01-24] MEDS: CARVEDILOL 12.5 MG TAB PO SCH ×2 (09:40→21:40)
[2017-01-24] MEDS: FAMOTIDINE 20 MG TAB PO SCH ×2 (09:40→21:40)
[2017-01-24] MEDS: SENNOSIDES SYRUP 8.8 MG/5 ML CUP PO SCH ×2 (09:40→21:44)
[2017-01-24] MEDS: MODAFINIL 200 MG TAB PO SCH (09:40)
[2017-01-24] MEDS: SPIRONOLACTONE 25 MG TAB PO SCH (09:41)
[2017-01-24] MEDS: FUROSEMIDE 40 MG/5 ML UNIT DOSE CUP NG SCH (09:42)
[2017-01-24] MEDS: INSULIN DETEMIR 100 UNITS/ML VIAL SQ SCH ×2 (09:42→21:39)
[2017-01-24] MEDS: SODIUM CHLORIDE 0.9% FLUSH 10 ML FLUSH SCH ×2 (09:43→21:45)
--- NOTE | 2017-01-24 11:03 | HHI.PR ---
Subjective Patient symptoms today Pt more alert today. Still on vent. Responds more today. Objective Vital Signs Vital Signs Date Time Temp Pulse Resp B/P Pulse Ox O2 Delivery O2 Flow Rate FiO2 01/24/17 07:46 40 01/24/17 07:40 97 40 01/24/17 07:40 40 01/24/17 07:00 98 Mechanical Ventilator 40 01/24/17 06:00 68 01/24/17 04:21 98 40 01/24/17 04:00 76 01/24/17 04:00 40 01/24/17 04:00 99.0 87 18 136/70 98 01/24/17 02:00 74 01/24/17 01:30 99 40 01/24/17 00:00 98.9 84 18 109/59 98 01/24/17 00:00 84 01/24/17 00:00 40 01/23/17 22:16 100 40 01/23/17 22:00 90 01/23/17 20:00 40 01/23/17 20:00 99.3 81 18 135/70 98 01/23/17 20:00 98 Mechanical Ventilator 40 01/23/17 20:00 81 01/23/17 19:50 99 40 01/23/17 18:00 95 01/23/17 16:10 97 45 01/23/17 16:00 105 01/23/17 16:00 99.8 105 24 176/122 95 01/23/17 16:00 45 01/23/17 14:00 102 01/23/17 12:58 99 45 01/23/17 12:00 45 01/23/17 12:00 98.8 84 20 155/74 97 01/23/17 12:00 95 Intake & Output 01/24/17 01/24/17 07:00 19:00 Intake Total 970 ml Output Total 1400 ml Balance -430 ml IV Total 125 ml Tube Feeding 725 ml Tube Irrigant 120 ml Output Urine Total 1150 ml Stool Total 250 ml Result Diagram: 01/20/17 0200 01/24/17 0340 Objective Remarks Abd:soft,nt,nd Capps: urine clear Wound: moderate drainage noted. Scrotal erythema improved. 12/30 Abd:soft,nt,nd Capps with clear urine Scrotal erythema improved. 12/31 Abd:soft,nt,nd Capps with clear urine Dressings in place. Ext: neg C/C/E 01/02 Abd:soft,nt,nd Wound: clean with kay drains in place. 01/03 Abd:soft,nt,nd Wound looks clean. Small kay drain removed. 01/06 Abd:soft,nt,nd Drains out 01/07 Abd:soft,nt,nd Wound looks good; healing 01/14 Abd:soft,nt,nd Wound: clean and healing. Wet/Dry dressing changes Leave fecal catch container in place 01/16 Abd:soft,nt,nd Wound: open without packing Fecal device in place 01/17 Abd:soft,nt,nd Wound: open without packing Fecal device in place 01/21 Abd:soft,nt,nd Wound: clean with packing present 01/22 Abd:soft,nt,nd Wound: clean with packing present 01/23 Abd:soft,nt,nd Wound: clean with packing present 01/24 Abd:soft,nt,nd Wound: clean with packing present Medications and IVs Current Medications Medications (Trade) Dose Ordered Sig/Abdiel Route Start Time Stop Time Status Last Admin (NS Flush) 2 ml UNSCH PRN .XX 12/28/16 20:15 (NS Flush) 2 ml BID .XX 12/28/16 21:00 01/24/17 09:43 (Tylenol) 650 mg Q6H PRN PO 12/28/16 20:15 01/09/17 20:08 (Tears Naturale Opth Soln) 1 drop TID EACH EYE 12/29/16 09:00 01/24/17 09:25 (Zofran Inj) 4 mg Q6H PRN IV 12/28/16 20:15 01/23/17 08:37 (Colace Liq) 100 mg Q12H G-TUBE 12/28/16 21:00 01/24/17 09:40 (Heparin Inj) 5,000 units Q8H SQ 12/28/16 22:00 01/24/17 04:59 Miscellaneous Information 1 Q361D XX 12/28/16 20:15 12/29/16 00:29 (Chlorhexidine 2% Cloth) Taper DAILY@04 TOP 12/29/16 04:00 12/25/17 03:59 01/24/17 04:00 (Chlorhexidine 2% Cloth) 3 pack UNSCH PRN TOP 12/28/16 20:15 (D50w (Vial) Inj) 25 ml UNSCH PRN IV PUSH 12/29/16 07:15 (Roxicodone) 5 mg Q4H PRN PO 12/29/16 15:00 01/23/17 21:58 (Lipitor) 40 mg HS PO 12/30/16 21:00 01/23/17 21:05 (Aldactone) 12.5 mg DAILY PO 12/31/16 09:00 01/24/17 09:41 (Pill Splitter) 1 ea UNSCH PRN OTHER 12/30/16 12:15 (Peridex 0.12% Liq) 15 ml BID@08,20 MT 12/31/16 20:00 01/24/17 09:25 (Trandate Inj) 10 mg Q1HR PRN IV PUSH 01/02/17 08:00 01/22/17 09:31 (Apresoline Inj) 10 mg Q1HR PRN IV PUSH 01/02/17 08:00 01/23/17 19:40 (Coreg) 25 mg BID PO 01/03/17 09:00 01/24/17 09:40 (Senna Liq) 8.8 mg BID PO 01/03/17 09:00 01/24/17 09:40 (Apresoline) 25 mg Q8HR PO 01/03/17 06:30 01/24/17 05:00 (Isordil) 10 mg Q8HR PO 01/03/17 06:30 01/24/17 05:00 (Glycerin Adult Supp) 2 gm BID PRN RECTAL 01/04/17 21:00 Insulin Detemir 8 units 8 units Q12H SQ 01/11/17 09:00 01/24/17 09:42 Potassium Chloride 100 ml @ 50 mls/hr Q2H PRN IV 01/12/17 09:00 01/20/17 08:51 Potassium Chloride 100 ml @ 50 mls/hr Q2H PRN IV 01/12/17 09:00 Potassium Chloride 100 ml @ 25 mls/hr UNSCH PRN IV 01/12/17 09:00 01/17/17 18:16 Potassium Chloride 100 ml @ 50 mls/hr Q2H PRN IV 01/12/17 09:00 01/20/17 05:15 (Magnesium Sulfate Inj/NS Inj) 100 ml @ 50 mls/hr UNSCH PRN IV 01/12/17 09:00 Magnesium Oxide 800 mg 800 mg UNSCH PRN PO 01/12/17 09:00 (Magnesium Sulfate Inj/NS Inj) 100 ml @ 50 mls/hr UNSCH PRN IV 01/12/17 09:00 Potassium Phosphate 2000 mg 2,000 mg Q4H PRN PO 01/12/17 09:00 (Sodium Phosphate Inj/NS 250 ml Inj) 250 ml @ 42 mls/hr UNSCH PRN IV 01/12/17 09:00 Potassium Phosphate 2000 mg 2,000 mg UNSCH PRN PO/TUBE 01/12/17 09:00 (Potassium Phosphate Inj/NS 250 ml Inj) 260 ml @ 42 mls/hr UNSCH PRN IV 01/12/17 09:00 (NovoLIN R SUPPLEMENTAL SCALE) 1 Q6H SQ 01/13/17 14:00 01/23/17 21:05 Famotidine 10 mg 10 mg BID PO 01/14/17 21:00 01/24/17 09:40 (Rocephin Inj/NS Inj) 100 ml @ 200 mls/hr Q24H IV 01/16/17 18:00 01/29/17 17:59 01/23/17 17:49 (SEROquel) 100 mg Q8HR PO 01/21/17 17:30 01/24/17 05:00 (Haldol Inj) 5 mg Q4H PRN IV 01/21/17 17:30 01/23/17 19:40 (Melatonin) 5 mg HS PO 01/21/17 21:00 01/23/17 21:06 (Provigil) 200 mg DAILY PO 01/23/17 09:00 01/24/17 09:40 (Lasix Liq) 40 mg DAILY NG 01/23/17 09:00 01/24/17 09:42 (Dilaudid Pf Inj) 0.5 mg Q4H PRN IV PUSH 01/23/17 22:00 (Zanaflex) 2 mg Q12HR PO 01/23/17 21:00 01/24/17 09:41 Assessment and Plan Assessment and Plan 71-year-old male with perineal/rectal abscess; 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 Patient will require IR intervention for debridement with washout. Risk and benefits discussed and patient is willing to proceed. 12/29 71 y.o male s/p debridement and washout of necrotizing fascitis Will plan to return to OR tomorrow for washout NPO after MN 12/30 71 y.o. male s/p debridement with washout of necrotizing fascitis OR today for washout. NPO 12/31 71 y.o. male s/p debridement with washout of necrotizing fascitis For washout with closure tomorrow in OR. NPO 01/02 Stable s/p debridement and washout of necrotizing fascitis Extubate today per SICU attending Will remove kay in a few days. 01/03 Stable s/p debridement and washout of necrotizing fascitis For Bronchoscopy today. Hopeful extubation soon. Will remove kay drains over weekend. 01/06 Stable s/p debridement and washout of necrotizing fascitis with closure Extubate/Trach Void trial when OOB and ambulating 01/07 Stable s/p debridement and washout of necrotizing fascitis with closure Void trial in future Call with questions 01/14 Stable s/p debridement and washout of necrotizing fascitis with closure Will need to leave fecal collection system in place Wet/Dry dressing changes BID 01/16 Stable s/p debridement and washout of necrotizing fascitis with closure Will need to leave fecal collection system in place Wet/Dry dressing changes BID 01/17 Stable s/p debridement and washout of necrotizing fascitis with closure Leave fecal collection system in place Continue with wet/dry dressing changes BID 01/21 S/P debridement and washout of necrotizing fascitis with closure Continue to attempt to ween from vent Continue with daily dressing changes 01/22 S/P debridement and washout of necrotizing fascitis with closure Continue to attempt to ween from vent Continue with daily dressing changes 01/23 S/P debridement and washout of necrotizing fascitis with closure Continue to attempt to ween from vent Continue with daily dressing changes Wound care consult 01/24 S/P debridement and washout of necrotizing fascitis with closure Continue to attempt to ween from vent Continue with daily dressing changes Tim Ling DO Jan 24, 2017 11:03
[2017-01-24] MEDS: cefTRIAXone INJ 2,000 MG in SODIUM CHLORIDE 0.9% INJ 100 ML IV SCH (18:31)
--- NOTE | 2017-01-24 19:17 | HHI.CCPN ---
Subjective Remarks/Hospital Course 71-year-old male presents for evaluation of testicular swelling. Approximately 10 days ago he was started on Aldactone for his blood pressure which. He also noted that her sugars has been slightly elevated. Denies any fevers. He has been feeling generally weak as well. Denied abdominal pain nausea vomiting or diarrhea. He thought the scrotal swelling was from the Aldactone and came into the emergency department to be evaluated. 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 remains intubated overnight. off vasopressors. 12/30: Much more comfortable. Back to OR for washout today. Breathing without distress. STEFFEN improving. Patient has dilated cardiomyopathy with severe systolic heart failure and EF 25-30% by last ECHO 2013. May need low-dose inotrope during course of therapy. 12/30 1800 hrs: Seen after OR today. He has full neck veins and light wheezes with basilar crackles. His underlying LV dysfunction requires that we treat this aggressively with diuretics and subsequent electrolyte replacement. Will move back to [facility]. 12/31: Required rapid response for 2nd time in 12 hours. Will need intubation due to severe systolic heart failure and pulmonary edema. 01/01: Afebrile. Remains nothing by mouth for planned washout today. Decreased urine output noted. Hypertensive with sedation vacation. 01/02: Yesterday with washout and debridement without complication. Continues to be in A. fib intermittently rate controlled. Hemodynamically stable. One bowel movement. Will try spontaneous breathing trials today and attempt to extubate. If unsuccessful will initiate tube feeding. 01/03: Tmax 99.2. Episode of desaturation overnight recording FiO2 100%. Currently back to 50%. Chest x-ray essentially stable. Small left pleural effusion. Low lung volumes. Remains in a flutter rate controlled. Imminently bradycardic. 3 bowel movements on 01/02. Tolerating tube feeding. 01/04: FiO2 currently at 50%. We'll check CT chest. Possible need pleural effusions. Remains in a flutter rate control. Intermittently bradycardic. No bowel movement yesterday. Tube feeds currently off for possible extubation but tolerating previously. Afebrile 01/05: Remains on FiO2 of 50%. CT chest revealed small bilateral pleural effusions otherwise unremarkable. Noted is currently rate controlled. No bowel movement. Tube feeds at goal. Afebrile. Intermittently follows commands. 01/06: FiO2 40%. Self extubated yesterday. Lasted about 20 Mr. for requiring intubation. Was on 100 percent nonrebreather. Saturations are 90%. During intubation, Ambu bag malfunctioned. Patient was quickly intubated and was arousable moving all 4 extremities prior to re-sedation. We'll attempt sedation vacation again today. 01/07: Remains ventilator dependent, failed extubation yesterday. Unable to wean today, weak. 01/08: Tolerating CPAP trials but unable to extubate. 01/09: Plan transfer to LTAC. 01/10: Continued improvement in renal function. Contraction alkalosis with diuresis. Will require LTAC. 01/11: Will need to get a fair amount of excess water off. Consider gtt. 01/11: Great response to bumex gtt. 01/13: Continue diuresis. Replete electrolytes. Reduce vent rate. 01/14: Diuresed 10 liters net balance. Replace lytes. Correct HCO3 with diamox. Wean vent. 01/15: Despite aggressive diuresis and clearing of CXR he does not tolerate extended SBTs. He will need a tracheostomy if family wishes to pursue aggressive care. 01/16: Serratia in sputum, afebrile. WBC 5600. CXR benign. 01/17: Needs trach for group home weaning. Need to find family to consent. 01/18: Family has consented. Still fails weaning trials. Will perform trach. 01/19: Underwent percutaneous tracheostomy on 01/18. Remains on mechanical ventilation. 01/20: Remains on propofol for agitation. On mechanical ventilation via tracheostomy. Tolerating tube feeds. 01/22: off propofol. much less agitated today, but still some delirium and still CAM +. CPAP trials today. 01/23: more agitated today. very CAM +. still failing CPAP trials for tachycardia and agitation. Subjective: 01/24: much more improved today. follows commands. less delirious. Objective Vital Signs Date Time Temp Pulse Resp B/P Pulse Ox O2 Delivery O2 Flow Rate FiO2 01/24/17 18:00 82 01/24/17 17:00 97 45 01/24/17 16:00 99.1 21 128/66 01/24/17 07:00 Mechanical Ventilator Intake and Output 01/23/17 01/23/17 01/24/17 08:00 16:00 00:00 Intake Total 532 ml 517 ml 610 ml Output Total 600 ml 800 ml 800 ml Balance -68 ml -283 ml -190 ml Result Diagram: 01/20/17 0200 01/24/17 0340 Imaging Last Impressions Chest X-Ray 01/06/17 0600 Signed Impressions: Service Date/Time: Friday, January 06, 2017 04:21 - CONCLUSION: Cardiomegaly with bilateral pleural effusions and bibasilar infiltrates. The radiographic pattern is most consistent with pulmonary edema. Sushil Abdi Jr., MD Abdomen X-Ray 01/05/17 0000 Signed Impressions: Service Date/Time: Thursday, January 05, 2017 07:23 - CONCLUSION: Nasogastric tube across the GE junction with minimal gaseous distention. Aba Dick MD FACR Chest CT 01/04/17 0000 Signed Impressions: Service Date/Time: Wednesday, January 04, 2017 12:03 - CONCLUSION: 1. Consolidative changes with small bilateral pleural effusions in both bases. 2. Extensive coronary artery calcifications. Aba Dick MD FACR Renal Ultrasound 01/01/17 0000 Signed Impressions: Service Date/Time: Sunday, January 01, 2017 09:12 - CONCLUSION: Normal examination. Sushil Abdi Jr., MD Scrotum Ultrasound 12/28/16 1246 Signed Impressions: Service Date/Time: Wednesday, December 28, 2016 14:05 - CONCLUSION: 1. Marked thickening of the scrotal wall, up to 2.4 cm on the right. 2. Small complex left hydrocele. 3. Small complex cysts right testicle. Positive testicular blood flow. Nael Scott MD Abdomen/Pelvis CT 12/28/16 1237 Signed Impressions: Service Date/Time: Wednesday, December 28, 2016 14:52 - CONCLUSION: 1. 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 2. Mild bilateral inguinal adenopathy and marked scrotal wall thickening. 3. Fat-containing 5.7 cm umbilical hernia. 4. Atherosclerotic aorta with some displaced intimal calcifications but without significant aneurysm. No bowel obstruction. Mild ileus. Nael Scott MD Objective Remarks GENERAL: 71-year-old male SKIN: Warm and dry. HEAD: Normocephalic. EYES: Pupils are 2 mm bilaterally and reactive. NECK: Tracheostomy in place CARDIOVASCULAR: Irreg Irreg Intermittently paced. S1, S2 no S4. Without murmur RESPIRATORY: Diminished breath sounds bases. No wheezes. Few scattered rhonchi. Lots of secretions. GASTROINTESTINAL: Abdomen soft, non-tender, obese. MUSCULOSKELETAL: Currently with trace to 1+ bilateral lower extremity pitting edema. Foot pulses palpable. NEURO: Moves all 4 extremities spontaneously. Withdraws to pain. Follows commands intermittently. Very weak. RASS 0. CAM -. 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 seroquel 100mg po q8hr. haldol 5mg iv q4h prn for breakthrough agitation melatonin 5mg po qhs for sleep provigil 200mg po daily. tizanidine 2mg po q12h. Not on home medications for underlying psychiatric diagnosis. CV: Congestive heart failure/systolic ejection fraction 25% 2013 Limited echo EF 35-40% with akinesis apical myocardium History of CABG 4 Hypertension Dyslipidemia History of single-chamber defibrillator 08/19 due to positive EPS study Holding valsartan 320 mg by mouth daily for hypertension due to acute kidney injury Continue Lipitor 40 mg by mouth daily/home medication for dyslipidemia On Coreg 25 mg q12h. Continue hydralazine 25 3 times a day/Isordil 10 every 8 as adjuvant while creatinine elevated Milrinone was discontinued 01/01 due to dysrhythmias Echo 2013 - EF 25-30%. No regional wall motion abnormality. Left atrium dilated Limited echo 2016 reveals EF 35-40%. Akinesis apical myocardium. Left atrium mild dilatated. Mild MR. Lasix 40 mg daily Continue spironolactone 12.[address] Rob cardiology seen for for underlying atrial flutter. Likely ischemic workup Resp: Acute hypoxemic respiratory failure Ongoing tobaccoism daily SBTs. continue to fail for respiratory rate and agitation. Ventilator bundle. Status post tracheostomy 01/18 Bronchodilator therapy every 4 hours and as needed Serratia in sputum with copious secretions. GI: Gastroesophageal reflux disease 5.7 cm umbilical hernia Glucerna 1.5 goal 55 cc an hour Pepcid 10 mg twice a day for GI prophylaxis. On Prilosec 20 mg by mouth daily at home Colace/senna twice a day for bowel regimen Umbilical hernia seen on CT is reducible. levemir bid : Becca's gangrene BPH Postop for Becca's gangrene/ necrotizing fasciitis posterior scrotum, perineum and right perirectal tissue Postop washout and debridement for his gangrene Postoperative washout and debridement. 12/28 revealed gas in his perineum/scrotum and the right gluteal cleft. Followed by urology/Dr. Ling Perineal wound with considerable drainage. Endo: Diabetes mellitus Gout Holding Tanzeum 50 mg subcutaneous weekly. Holding allopurinol 200 mg by mouth daily for gout Sliding scale insulin with Accu-Cheks every 6 hours to maintain euglycemia. 8 units of sliding scale insulin past 24 hours and started on Levemir 5 daily -> BID Renal: Acute kidney injury - baseline creatinine 1.[address] revealed no signs of hydronephrosis. Urine eosinophils negative. Renal ultrasound revealed no hydronephrosis No indications for hemodialysis at this point. Heme: Normocytic anemia Leukocytosis Daily CBC. Monitor trends Transfuse 2 units PRBCs during this hospital stay. No current indication for transfusion of blood at this time. ID: Becca's gangrene Group A beta strep UTI Unasyn 1.5 IV every 6 hours stopped 01/16 (switched to Rocephin per ID) Clindamycin 300 mg by mouth every 6 hours completed 01/02 Rocephin 2gm IV daily 01/16, anticipated stop date 01/29 Pertinent cultures Sputum 01/14 - Serratia Sputum - 12/31 -no growth Abdomen abscess - 12/28 - Escherichia coli, E faecalis and coag negative staph Abdomen abscess - 12/28 - acid-fast bacilli/fungus negative Blood cultures 2 - 12/28 - no growth Urine culture - 12/28 -group A beta strep Infectious disease consulted, signed off with anticipated abx stop date 01/29 FEN: Hyper-magnesium Hypokalemia - resolved Hypernatremia Replace electrolytes as clinically indicated MSK: PT/OT evaluate and treat Access - Right IJ CVL day #10 placed 12/31 -> d/c - Left radial arterial line day placed 12/31 -> d/c -Left IJ CVL d/c 01/21 Prophylaxis - GI - Pepcid - DVT - SCD/heparin subcutaneous Overall impression: Remains very weak, restricted by chronic poor cardiac function. s/p tracheostomy. Son reasserts full code status for patient. Noe Alaniz MD Jan 24, 2017 19:16
[2017-01-24] MEDS: ATORVASTATIN 40 MG TAB PO SCH (21:40)
[2017-01-24] MEDS: HYDROmorphone HCL PF 1 MG/ML VIAL IV PUSH PRN (21:41)
[2017-01-24] MEDS: MELATONIN 5 MG TAB PO SCH (21:45)
[2017-01-25] VITALS (19 sets, daily range): BP systolic 127–183; BP diastolic 68–101; PULSE 73–112; RESP 14–22; TEMP 98.4–100.2; O2SAT 93–100
[2017-01-25] MEDS: INSULIN NovoLIN REGULAR SUPPLEMENTAL SCALE SQ SCH ×4 (02:45→20:08)
[2017-01-25] MEDS: CHLORHEXIDINE GLUCONATE 2 % 1 PACK (2 CLOTHS) TOP SCH (04:00)
[2017-01-25] MEDS: QUEtiapine FUMARATE 100 MG TAB PO SCH ×3 (05:35→19:42)
[2017-01-25] MEDS: HEPARIN SODIUM - SQ 10,000 UNITS/ML VIAL SQ SCH ×3 (05:35→19:38)
[2017-01-25] MEDS: hydrALAZINE HCL 25 MG TAB PO SCH ×3 (05:35→19:38)
[2017-01-25] MEDS: ISOSORBIDE DINITRATE 10 MG TAB PO SCH ×3 (05:35→19:38)
[2017-01-25] MEDS: HYDROmorphone HCL PF 1 MG/ML VIAL IV PUSH PRN ×3 (06:22→19:40)
[2017-01-25] MEDS: CHLORHEXIDINE 0.12% (ORAL KIT) 15 ML CUP MT SCH ×2 (08:00→19:37)
[2017-01-25] MEDS: RESP: BUDESONIDE 0.5 MG/2 ML NEB NEB SCH ×2 (08:51→20:27)
[2017-01-25] MEDS: ARTIFICIAL TEARS OPTH SOLN 15 ML BTL EACH EYE SCH ×3 (09:00→17:13)
[2017-01-25] MEDS: FUROSEMIDE 40 MG/5 ML UNIT DOSE CUP NG SCH (09:03)
[2017-01-25] MEDS: INSULIN DETEMIR 100 UNITS/ML VIAL SQ SCH ×2 (09:03→19:38)
[2017-01-25] MEDS: SENNOSIDES SYRUP 8.8 MG/5 ML CUP PO SCH ×2 (09:03→19:39)
[2017-01-25] MEDS: MODAFINIL 200 MG TAB PO SCH (09:03)
[2017-01-25] MEDS: DOCUSATE SODIUM 100 MG/10 ML UDC G-TUBE SCH ×2 (09:03→19:37)
[2017-01-25] MEDS: CARVEDILOL 12.5 MG TAB PO SCH ×2 (09:04→19:39)
[2017-01-25] MEDS: FAMOTIDINE 20 MG TAB PO SCH ×2 (09:04→19:39)
[2017-01-25] MEDS: SPIRONOLACTONE 25 MG TAB PO SCH (09:04)
[2017-01-25] MEDS: SODIUM CHLORIDE 0.9% FLUSH 10 ML FLUSH SCH ×2 (09:05→19:37)
--- NOTE | 2017-01-25 09:53 | HHI.CCPN ---
Subjective Remarks/Hospital Course 71-year-old male presents for evaluation of testicular swelling. Approximately 10 days ago he was started on Aldactone for his blood pressure which. He also noted that her sugars has been slightly elevated. Denies any fevers. He has been feeling generally weak as well. Denied abdominal pain nausea vomiting or diarrhea. He thought the scrotal swelling was from the Aldactone and came into the emergency department to be evaluated. 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 remains intubated overnight. off vasopressors. 12/30: Much more comfortable. Back to OR for washout today. Breathing without distress. STEFFEN improving. Patient has dilated cardiomyopathy with severe systolic heart failure and EF 25-30% by last ECHO 2013. May need low-dose inotrope during course of therapy. 12/30 1800 hrs: Seen after OR today. He has full neck veins and light wheezes with basilar crackles. His underlying LV dysfunction requires that we treat this aggressively with diuretics and subsequent electrolyte replacement. Will move back to [facility]. 12/31: Required rapid response for 2nd time in 12 hours. Will need intubation due to severe systolic heart failure and pulmonary edema. 01/01: Afebrile. Remains nothing by mouth for planned washout today. Decreased urine output noted. Hypertensive with sedation vacation. 01/02: Yesterday with washout and debridement without complication. Continues to be in A. fib intermittently rate controlled. Hemodynamically stable. One bowel movement. Will try spontaneous breathing trials today and attempt to extubate. If unsuccessful will initiate tube feeding. 01/03: Tmax 99.2. Episode of desaturation overnight recording FiO2 100%. Currently back to 50%. Chest x-ray essentially stable. Small left pleural effusion. Low lung volumes. Remains in a flutter rate controlled. Imminently bradycardic. 3 bowel movements on 01/02. Tolerating tube feeding. 01/04: FiO2 currently at 50%. We'll check CT chest. Possible need pleural effusions. Remains in a flutter rate control. Intermittently bradycardic. No bowel movement yesterday. Tube feeds currently off for possible extubation but tolerating previously. Afebrile 01/05: Remains on FiO2 of 50%. CT chest revealed small bilateral pleural effusions otherwise unremarkable. Noted is currently rate controlled. No bowel movement. Tube feeds at goal. Afebrile. Intermittently follows commands. 01/06: FiO2 40%. Self extubated yesterday. Lasted about 20 Mr. for requiring intubation. Was on 100 percent nonrebreather. Saturations are 90%. During intubation, Ambu bag malfunctioned. Patient was quickly intubated and was arousable moving all 4 extremities prior to re-sedation. We'll attempt sedation vacation again today. 01/07: Remains ventilator dependent, failed extubation yesterday. Unable to wean today, weak. 01/08: Tolerating CPAP trials but unable to extubate. 01/09: Plan transfer to LTAC. 01/10: Continued improvement in renal function. Contraction alkalosis with diuresis. Will require LTAC. 01/11: Will need to get a fair amount of excess water off. Consider gtt. 01/11: Great response to bumex gtt. 01/13: Continue diuresis. Replete electrolytes. Reduce vent rate. 01/14: Diuresed 10 liters net balance. Replace lytes. Correct HCO3 with diamox. Wean vent. 01/15: Despite aggressive diuresis and clearing of CXR he does not tolerate extended SBTs. He will need a tracheostomy if family wishes to pursue aggressive care. 01/16: Serratia in sputum, afebrile. WBC 5600. CXR benign. 01/17: Needs trach for intermediate weaning. Need to find family to consent. 01/18: Family has consented. Still fails weaning trials. Will perform trach. 01/19: Underwent percutaneous tracheostomy on 01/18. Remains on mechanical ventilation. 01/20: Remains on propofol for agitation. On mechanical ventilation via tracheostomy. Tolerating tube feeds. 01/22: off propofol. much less agitated today, but still some delirium and still CAM +. CPAP trials today. 01/23: more agitated today. very CAM +. still failing CPAP trials for tachycardia and agitation. 01/24: much more improved today. follows commands. less delirious. Subjective: 01/25: mentation continues to improve. still CAM -. follows commands. OOB to chair today. Objective Vital Signs Date Time Temp Pulse Resp B/P Pulse Ox O2 Delivery O2 Flow Rate FiO2 01/25/17 09:17 99 40 01/25/17 06:00 88 01/25/17 04:00 98.8 22 182/87 01/25/17 00:00 Mechanical Ventilator Bi-Pap Intake and Output 01/24/17 01/24/17 01/25/17 08:00 16:00 00:00 Intake Total 360 ml 410 ml 789 ml Output Total 600.0 ml 850.0 ml 300.0 ml Balance -240.0 ml -440.0 ml 489.0 ml Result Diagram: 01/24/17 0340 Imaging Last Impressions Chest X-Ray 01/06/17 0600 Signed Impressions: Service Date/Time: Friday, January 06, 2017 04:21 - CONCLUSION: Cardiomegaly with bilateral pleural effusions and bibasilar infiltrates. The radiographic pattern is most consistent with pulmonary edema. Sushil Abdi Jr., MD Abdomen X-Ray 01/05/17 0000 Signed Impressions: Service Date/Time: Thursday, January 05, 2017 07:23 - CONCLUSION: Nasogastric tube across the GE junction with minimal gaseous distention. Aba Dick MD FACR Chest CT 01/04/17 0000 Signed Impressions: Service Date/Time: Wednesday, January 04, 2017 12:03 - CONCLUSION: 1. Consolidative changes with small bilateral pleural effusions in both bases. 2. Extensive coronary artery calcifications. Aba Dick MD FACR Renal Ultrasound 01/01/17 0000 Signed Impressions: Service Date/Time: Sunday, January 01, 2017 09:12 - CONCLUSION: Normal examination. Sushil Abdi Jr., MD Scrotum Ultrasound 12/28/16 1246 Signed Impressions: Service Date/Time: Wednesday, December 28, 2016 14:05 - CONCLUSION: 1. Marked thickening of the scrotal wall, up to 2.4 cm on the right. 2. Small complex left hydrocele. 3. Small complex cysts right testicle. Positive testicular blood flow. Nael Scott MD Abdomen/Pelvis CT 12/28/16 1237 Signed Impressions: Service Date/Time: Wednesday, December 28, 2016 14:52 - CONCLUSION: 1. 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 2. Mild bilateral inguinal adenopathy and marked scrotal wall thickening. 3. Fat-containing 5.7 cm umbilical hernia. 4. Atherosclerotic aorta with some displaced intimal calcifications but without significant aneurysm. No bowel obstruction. Mild ileus. Nael Scott MD Objective Remarks GENERAL: 71-year-old male SKIN: Warm and dry. HEAD: Normocephalic. EYES: Pupils are 2 mm bilaterally and reactive. NECK: Tracheostomy in place CARDIOVASCULAR: Irreg Irreg Intermittently paced. RESPIRATORY: unlabored. secretions improved. on trach collar on my exam. GASTROINTESTINAL: Abdomen soft, non-tender, obese. MUSCULOSKELETAL: Currently with trace to 1+ bilateral lower extremity pitting edema. Foot pulses palpable. NEURO: Moves all 4 extremities spontaneously. Withdraws to pain. Follows commands intermittently. Very weak. RASS 0. CAM -. 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 Posttraumatic stress disorder Depression/anxiety History of peripheral neuropathy Acute agitated delirium- improved. seroquel 100mg po q8hr. haldol 5mg iv q4h prn for breakthrough agitation melatonin 5mg po qhs for sleep provigil 200mg po daily. tizanidine 2mg po q12h. Not on home medications for underlying psychiatric diagnosis. CV: Congestive heart failure/systolic ejection fraction 25% 2013 Limited echo EF 35-40% with akinesis apical myocardium History of CABG 4 Hypertension Dyslipidemia History of single-chamber defibrillator 08/19 due to positive EPS study Holding valsartan 320 mg by mouth daily for hypertension due to acute kidney injury Continue Lipitor 40 mg by mouth daily/home medication for dyslipidemia On Coreg 25 mg q12h. Continue hydralazine 25 3 times a day/Isordil 10 every 8 as adjuvant while creatinine elevated Milrinone was discontinued 01/01 due to dysrhythmias Echo 2013 - EF 25-30%. No regional wall motion abnormality. Left atrium dilated Limited echo 2016 reveals EF 35-40%. Akinesis apical myocardium. Left atrium mild dilatated. Mild MR. Dr. Rob cardiology seen for for underlying atrial flutter. Likely ischemic workup Lasix 40 mg daily Continue spironolactone 12.5 mg daily Resp: Acute hypoxemic respiratory failure Ongoing tobaccoism daily SBTs. working on pulmonary strengthening with 4-on-4-off CPAP trials. Ventilator bundle. Status post tracheostomy 01/18 Bronchodilator therapy every 4 hours and as needed secretions improving GI: Gastroesophageal reflux disease 5.7 cm umbilical hernia Glucerna 1.5 goal 55 cc an hour Pepcid 10 mg twice a day for GI prophylaxis. On Prilosec 20 mg by mouth daily at home Colace/senna twice a day for bowel regimen Umbilical hernia seen on CT is reducible. levemir bid : Becca's gangrene BPH Postop for Becca's gangrene/ necrotizing fasciitis posterior scrotum, perineum and right perirectal tissue Postop washout and debridement for his gangrene Postoperative washout and debridement. 12/28 revealed gas in his perineum/scrotum and the right gluteal cleft. Followed by urology/Dr. Ling Perineal wound with considerable drainage. Endo: Diabetes mellitus Gout Holding Tanzeum 50 mg subcutaneous weekly. Holding allopurinol 200 mg by mouth daily for gout Sliding scale insulin with Accu-Cheks every 6 hours to maintain euglycemia. Levemir 5 BID Renal: Acute kidney injury - baseline creatinine 1.4, resolved. Initial CT revealed no signs of hydronephrosis. Urine eosinophils negative. Renal ultrasound revealed no hydronephrosis No indications for hemodialysis at this point. Heme: Normocytic anemia Leukocytosis Daily CBC. Monitor trends Transfuse 2 units PRBCs during this hospital stay. No current indication for transfusion of blood at this time. ID: Becca's gangrene Group A beta strep UTI Unasyn 1.5 IV every 6 hours stopped 01/16 (switched to Rocephin per ID) Clindamycin 300 mg by mouth every 6 hours completed 01/02 Rocephin 2gm IV daily 01/16, anticipated stop date 01/29 Pertinent cultures Sputum 01/14 - Serratia Sputum - 12/31 -no growth Abdomen abscess - 12/28 - Escherichia coli, E faecalis and coag negative staph Abdomen abscess - 12/28 - acid-fast bacilli/fungus negative Blood cultures 2 - 12/28 - no growth Urine culture - 12/28 -group A beta strep Infectious disease consulted, signed off with anticipated abx stop date 01/29 FEN: Hyper-magnesium Hypokalemia - resolved Hypernatremia Replace electrolytes as clinically indicated MSK: PT/OT evaluate and treat Access - Right IJ CVL day #10 placed 12/31 -> d/c - Left radial arterial line day placed 12/31 -> d/c -Left IJ CVL d/c 01/21 Prophylaxis - GI - Pepcid - DVT - SCD/heparin subcutaneous Overall impression: Remains very weak, restricted by chronic poor cardiac function. s/p tracheostomy. Son reasserts full code status for patient. Noe Alaniz MD Jan 25, 2017 09:53 Noe Alaniz MD Jan 25, 2017 09:53
[2017-01-25] MEDS: HALOPERIDOL LACTATE 5 MG/ML AMP IV PRN (16:51)
[2017-01-25] MEDS: cefTRIAXone INJ 2,000 MG in SODIUM CHLORIDE 0.9% INJ 100 ML IV SCH (17:16)
[2017-01-25] MEDS: MELATONIN 5 MG TAB PO SCH (19:38)
[2017-01-25] MEDS: ATORVASTATIN 40 MG TAB PO SCH (19:39)
[2017-01-26] VITALS (18 sets, daily range): BP systolic 117–190; BP diastolic 67–99; PULSE 71–134; RESP 16–22; TEMP 98.8–100.2; O2SAT 93–99
[2017-01-26] MEDS: INSULIN NovoLIN REGULAR SUPPLEMENTAL SCALE SQ SCH ×4 (02:00→20:00)
[2017-01-26] MEDS: CHLORHEXIDINE GLUCONATE 2 % 1 PACK (2 CLOTHS) TOP SCH (02:42)
[2017-01-26] MEDS: HYDROmorphone HCL PF 1 MG/ML VIAL IV PUSH PRN ×4 (03:42→19:53)
[2017-01-26] MEDS: HEPARIN SODIUM - SQ 10,000 UNITS/ML VIAL SQ SCH ×3 (05:40→19:51)
[2017-01-26] MEDS: hydrALAZINE HCL 25 MG TAB PO SCH ×3 (05:40→19:49)
[2017-01-26] MEDS: ISOSORBIDE DINITRATE 10 MG TAB PO SCH ×3 (05:40→19:49)
[2017-01-26] MEDS: QUEtiapine FUMARATE 100 MG TAB PO SCH ×3 (05:40→19:51)
[2017-01-26] MEDS: RESP: BUDESONIDE 0.5 MG/2 ML NEB NEB SCH ×2 (07:22→20:02)
--- NOTE | 2017-01-26 08:09 | HHI.CCPN ---
Subjective Remarks/Hospital Course 71-year-old male presents for evaluation of testicular swelling. Approximately 10 days ago he was started on Aldactone for his blood pressure which. He also noted that her sugars has been slightly elevated. Denies any fevers. He has been feeling generally weak as well. Denied abdominal pain nausea vomiting or diarrhea. He thought the scrotal swelling was from the Aldactone and came into the emergency department to be evaluated. 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 remains intubated overnight. off vasopressors. 12/30: Much more comfortable. Back to OR for washout today. Breathing without distress. STEFFEN improving. Patient has dilated cardiomyopathy with severe systolic heart failure and EF 25-30% by last ECHO 2013. May need low-dose inotrope during course of therapy. 12/30 1800 hrs: Seen after OR today. He has full neck veins and light wheezes with basilar crackles. His underlying LV dysfunction requires that we treat this aggressively with diuretics and subsequent electrolyte replacement. Will move back to [facility] [place] 12/31: Required rapid response for 2nd time in 12 hours. Will need intubation due to severe systolic heart failure and pulmonary edema. 01/01: Afebrile. Remains nothing by mouth for planned washout today. Decreased urine output noted. Hypertensive with sedation vacation. 01/02: Yesterday with washout and debridement without complication. Continues to be in A. fib intermittently rate controlled. Hemodynamically stable. One bowel movement. Will try spontaneous breathing trials today and attempt to extubate. If unsuccessful will initiate tube feeding. 01/03: Tmax 99.2. Episode of desaturation overnight recording FiO2 100%. Currently back to 50%. Chest x-ray essentially stable. Small left pleural effusion. Low lung volumes. Remains in a flutter rate controlled. Imminently bradycardic. 3 bowel movements on 01/02. Tolerating tube feeding. 01/04: FiO2 currently at 50%. We'll check CT chest. Possible need pleural effusions. Remains in a flutter rate control. Intermittently bradycardic. No bowel movement yesterday. Tube feeds currently off for possible extubation but tolerating previously. Afebrile 01/05: Remains on FiO2 of 50%. CT chest revealed small bilateral pleural effusions otherwise unremarkable. Noted is currently rate controlled. No bowel movement. Tube feeds at goal. Afebrile. Intermittently follows commands. 01/06: FiO2 40%. Self extubated yesterday. Lasted about 20 Mr. for requiring intubation. Was on 100 percent nonrebreather. Saturations are 90%. During intubation, Ambu bag malfunctioned. Patient was quickly intubated and was arousable moving all 4 extremities prior to re-sedation. We'll attempt sedation vacation again today. 01/07: Remains ventilator dependent, failed extubation yesterday. Unable to wean today, weak. 01/08: Tolerating CPAP trials but unable to extubate. 01/09: Plan transfer to LTAC. 01/10: Continued improvement in renal function. Contraction alkalosis with diuresis. Will require LTAC. 01/11: Will need to get a fair amount of excess water off. Consider gtt. 01/11: Great response to bumex gtt. 01/13: Continue diuresis. Replete electrolytes. Reduce vent rate. 01/14: Diuresed 10 liters net balance. Replace lytes. Correct HCO3 with diamox. Wean vent. 01/15: Despite aggressive diuresis and clearing of CXR he does not tolerate extended SBTs. He will need a tracheostomy if family wishes to pursue aggressive care. 01/16: Serratia in sputum, afebrile. WBC 5600. CXR benign. 01/17: Needs trach for shelter weaning. Need to find family to consent. 01/18: Family has consented. Still fails weaning trials. Will perform trach. 01/19: Underwent percutaneous tracheostomy on 01/18. Remains on mechanical ventilation. 01/20: Remains on propofol for agitation. On mechanical ventilation via tracheostomy. Tolerating tube feeds. 01/22: off propofol. much less agitated today, but still some delirium and still CAM +. CPAP trials today. 01/23: more agitated today. very CAM +. still failing CPAP trials for tachycardia and agitation. 01/24: much more improved today. follows commands. less delirious. 01/25: mentation continues to improve. still CAM -. follows commands. OOB to chair today. Subjective: 01/26: continues to do well. mentation continues to clear. OOB to chair daily. still awaiting placement. still weaning from vent, but slow given deconditioned state. Objective Vital Signs Date Time Temp Pulse Resp B/P Pulse Ox O2 Delivery O2 Flow Rate FiO2 01/26/17 07:35 94 40 01/26/17 07:00 Mechanical Ventilator 01/26/17 06:00 94 01/26/17 04:00 100.2 18 151/67 Intake and Output 01/25/17 01/25/17 01/26/17 08:00 16:00 00:00 Intake Total 554 ml 779 ml 716 ml Output Total 650 ml 675 ml 350 ml Balance -96 ml 104 ml 366 ml Result Diagram: 01/24/17 0340 Imaging Last Impressions Chest X-Ray 01/06/17 0600 Signed Impressions: Service Date/Time: Friday, January 06, 2017 04:21 - CONCLUSION: Cardiomegaly with bilateral pleural effusions and bibasilar infiltrates. The radiographic pattern is most consistent with pulmonary edema. Sushil Abdi Jr., MD Abdomen X-Ray 01/05/17 0000 Signed Impressions: Service Date/Time: Thursday, January 05, 2017 07:23 - CONCLUSION: Nasogastric tube across the GE junction with minimal gaseous distention. Aba Dick MD FACR Chest CT 01/04/17 0000 Signed Impressions: Service Date/Time: Wednesday, January 04, 2017 12:03 - CONCLUSION: 1. Consolidative changes with small bilateral pleural effusions in both bases. 2. Extensive coronary artery calcifications. Aba Dick MD FACR Renal Ultrasound 01/01/17 0000 Signed Impressions: Service Date/Time: Sunday, January 01, 2017 09:12 - CONCLUSION: Normal examination. Sushil Abdi Jr., MD Scrotum Ultrasound 12/28/16 1246 Signed Impressions: Service Date/Time: Wednesday, December 28, 2016 14:05 - CONCLUSION: 1. Marked thickening of the scrotal wall, up to 2.4 cm on the right. 2. Small complex left hydrocele. 3. Small complex cysts right testicle. Positive testicular blood flow. Nael Scott MD Abdomen/Pelvis CT 12/28/16 1237 Signed Impressions: Service Date/Time: Wednesday, December 28, 2016 14:52 - CONCLUSION: 1. 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 2. Mild bilateral inguinal adenopathy and marked scrotal wall thickening. 3. Fat-containing 5.7 cm umbilical hernia. 4. Atherosclerotic aorta with some displaced intimal calcifications but without significant aneurysm. No bowel obstruction. Mild ileus. Nael Scott MD Objective Remarks GENERAL: 71-year-old male SKIN: Warm and dry. HEAD: Normocephalic. EYES: Pupils are 2 mm bilaterally and reactive. NECK: Tracheostomy in place CARDIOVASCULAR: Irreg Irreg Intermittently paced. RESPIRATORY: unlabored. secretions improved. on trach collar on my exam. GASTROINTESTINAL: Abdomen soft, non-tender, obese. MUSCULOSKELETAL: Currently with trace to 1+ bilateral lower extremity pitting edema. Foot pulses palpable. NEURO: Moves all 4 extremities spontaneously. Follows commands. Very weak. RASS 0. CAM -. 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 Posttraumatic stress disorder Depression/anxiety History of peripheral neuropathy Acute agitated delirium- improved. seroquel 100mg po q8hr. haldol 5mg iv q4h prn for breakthrough agitation melatonin 5mg po qhs for sleep provigil 200mg po daily. tizanidine 2mg po q12h. Not on home medications for underlying psychiatric diagnosis. CV: Congestive heart failure/systolic ejection fraction 25% 2013 Limited echo EF 35-40% with akinesis apical myocardium History of CABG 4 Hypertension Dyslipidemia History of single-chamber defibrillator 08/19 due to positive EPS study Holding valsartan 320 mg by mouth daily for hypertension due to acute kidney injury Continue Lipitor 40 mg by mouth daily/home medication for dyslipidemia On Coreg 25 mg q12h. Continue hydralazine 25 3 times a day/Isordil 10 every 8 as adjuvant while creatinine elevated Milrinone was discontinued 01/01 due to dysrhythmias Echo 2013 - EF 25-30%. No regional wall motion abnormality. Left atrium dilated Limited echo 2016 reveals EF 35-40%. Akinesis apical myocardium. Left atrium mild dilatated. Mild MR. Dr. Rob cardiology seen for for underlying atrial flutter. Likely ischemic workup Lasix 40 mg daily Continue spironolactone 12.5 mg daily Resp: Acute hypoxemic respiratory failure Ongoing tobaccoism daily SBTs. working on pulmonary strengthening with 4-on-4-off CPAP trials. Ventilator bundle. Status post tracheostomy 01/18 Bronchodilator therapy every 4 hours and as needed secretions improving GI: Gastroesophageal reflux disease 5.7 cm umbilical hernia Glucerna 1.5 goal 55 cc an hour Pepcid 10 mg twice a day for GI prophylaxis. On Prilosec 20 mg by mouth daily at home Colace/senna twice a day for bowel regimen Umbilical hernia seen on CT is reducible. levemir bid : Becca's gangrene BPH Postop for Becca's gangrene/ necrotizing fasciitis posterior scrotum, perineum and right perirectal tissue Postop washout and debridement for his gangrene Postoperative washout and debridement. 12/28 revealed gas in his perineum/scrotum and the right gluteal cleft. Followed by urology/Dr. Ling Perineal wound with considerable drainage. Endo: Diabetes mellitus Gout Holding Tanzeum 50 mg subcutaneous weekly. Holding allopurinol 200 mg by mouth daily for gout Sliding scale insulin with Accu-Cheks every 6 hours to maintain euglycemia. Levemir 5 BID Renal: Acute kidney injury - baseline creatinine 1.4, resolved. Initial CT revealed no signs of hydronephrosis. Urine eosinophils negative. Renal ultrasound revealed no hydronephrosis No indications for hemodialysis at this point. Heme: Normocytic anemia Leukocytosis Daily CBC. Monitor trends Transfuse 2 units PRBCs during this hospital stay. No current indication for transfusion of blood at this time. ID: Becca's gangrene Group A beta strep UTI Unasyn 1.5 IV every 6 hours stopped 01/16 (switched to Rocephin per ID) Clindamycin 300 mg by mouth every 6 hours completed 01/02 Rocephin 2gm IV daily 01/16, anticipated stop date 01/29 Pertinent cultures Sputum 01/14 - Serratia Sputum - 12/31 -no growth Abdomen abscess - 12/28 - Escherichia coli, E faecalis and coag negative staph Abdomen abscess - 12/28 - acid-fast bacilli/fungus negative Blood cultures 2 - 12/28 - no growth Urine culture - 12/28 -group A beta strep Infectious disease consulted, signed off with anticipated abx stop date 01/29 FEN: Hyper-magnesium Hypokalemia - resolved Hypernatremia Replace electrolytes as clinically indicated MSK: PT/OT evaluate and treat Access - Right IJ CVL day #10 placed 12/31 -> d/c - Left radial arterial line day placed 12/31 -> d/c -Left IJ CVL d/c 01/21 Prophylaxis - GI - Pepcid - DVT - SCD/heparin subcutaneous Overall impression: Remains very weak, restricted by chronic poor cardiac function. s/p tracheostomy. Son reasserts full code status for patient. Insurance requires 21 days on vent and 7 days post-trach in order to approve LTAC. Needs repeat [id number] tomorrow on Friday. 01/27 Noe Alaniz MD Jan 26, 2017 08:09
[2017-01-26] MEDS: CHLORHEXIDINE 0.12% (ORAL KIT) 15 ML CUP MT SCH ×2 (08:32→19:48)
[2017-01-26] MEDS: MODAFINIL 200 MG TAB PO SCH (08:33)
[2017-01-26] MEDS: FAMOTIDINE 20 MG TAB PO SCH ×2 (08:34→19:49)
[2017-01-26] MEDS: CARVEDILOL 12.5 MG TAB PO SCH ×2 (08:34→19:50)
[2017-01-26] MEDS: LABETALOL HCL 100 MG/20 ML VIAL IV PUSH PRN ×2 (08:35→13:41)
[2017-01-26] MEDS: DOCUSATE SODIUM 100 MG/10 ML UDC G-TUBE SCH ×2 (08:36→19:51)
[2017-01-26] MEDS: SENNOSIDES SYRUP 8.8 MG/5 ML CUP PO SCH ×2 (08:36→19:51)
[2017-01-26] MEDS: FUROSEMIDE 40 MG/5 ML UNIT DOSE CUP NG SCH (08:41)
[2017-01-26] MEDS: SPIRONOLACTONE 25 MG TAB PO SCH (08:41)
[2017-01-26] MEDS: INSULIN DETEMIR 100 UNITS/ML VIAL SQ SCH ×2 (08:42→19:52)
[2017-01-26] MEDS: SODIUM CHLORIDE 0.9% FLUSH 10 ML FLUSH SCH ×2 (09:00→19:52)
[2017-01-26] MEDS: ARTIFICIAL TEARS OPTH SOLN 15 ML BTL EACH EYE SCH ×3 (09:00→18:07)
[2017-01-26] MEDS: hydrALAZINE HCL 20 MG/ML VIAL IV PUSH PRN (09:14)
[2017-01-26] MEDS: HALOPERIDOL LACTATE 5 MG/ML AMP IV PRN ×2 (15:18→20:18)
[2017-01-26] MEDS: cefTRIAXone INJ 2,000 MG in SODIUM CHLORIDE 0.9% INJ 100 ML IV SCH (18:07)
[2017-01-26] MEDS: ATORVASTATIN 40 MG TAB PO SCH (19:49)
[2017-01-26] MEDS: MELATONIN 5 MG TAB PO SCH (19:49)
[2017-01-27] VITALS (19 sets, daily range): BP systolic 115–187; BP diastolic 65–99; PULSE 71–132; RESP 18–29; TEMP 97.8–99.5; O2SAT 91–100
[2017-01-27] MEDS: HYDROmorphone HCL PF 1 MG/ML VIAL IV PUSH PRN ×2 (02:32→19:28)
[2017-01-27] MEDS: HALOPERIDOL LACTATE 5 MG/ML AMP IV PRN ×5 (02:33→23:06)
[2017-01-27] MEDS: INSULIN NovoLIN REGULAR SUPPLEMENTAL SCALE SQ SCH ×4 (02:33→19:52)
[2017-01-27] MEDS: CHLORHEXIDINE GLUCONATE 2 % 1 PACK (2 CLOTHS) TOP SCH (04:00)
[2017-01-27] MEDS: QUEtiapine FUMARATE 100 MG TAB PO SCH ×3 (05:38→22:46)
[2017-01-27] MEDS: ISOSORBIDE DINITRATE 10 MG TAB PO SCH ×3 (05:38→22:46)
[2017-01-27] MEDS: hydrALAZINE HCL 25 MG TAB PO SCH ×3 (05:38→22:46)
[2017-01-27] MEDS: HEPARIN SODIUM - SQ 10,000 UNITS/ML VIAL SQ SCH ×3 (05:39→22:47)
[2017-01-27] MEDS: RESP: BUDESONIDE 0.5 MG/2 ML NEB NEB SCH ×2 (07:24→19:33)
[2017-01-27] MEDS: CHLORHEXIDINE 0.12% (ORAL KIT) 15 ML CUP MT SCH ×2 (09:11→20:00)
[2017-01-27] MEDS: SENNOSIDES SYRUP 8.8 MG/5 ML CUP PO SCH ×2 (09:12→20:07)
[2017-01-27] MEDS: FAMOTIDINE 20 MG TAB PO SCH ×2 (09:12→20:07)
[2017-01-27] MEDS: ARTIFICIAL TEARS OPTH SOLN 15 ML BTL EACH EYE SCH ×3 (09:12→17:10)
[2017-01-27] MEDS: FUROSEMIDE 40 MG/5 ML UNIT DOSE CUP NG SCH (09:12)
[2017-01-27] MEDS: CARVEDILOL 12.5 MG TAB PO SCH ×2 (09:12→20:07)
[2017-01-27] MEDS: DOCUSATE SODIUM 100 MG/10 ML UDC G-TUBE SCH ×2 (09:12→20:07)
[2017-01-27] MEDS: SPIRONOLACTONE 25 MG TAB PO SCH (09:12)
[2017-01-27] MEDS: MODAFINIL 200 MG TAB PO SCH (09:12)
[2017-01-27] MEDS: INSULIN DETEMIR 100 UNITS/ML VIAL SQ SCH ×2 (09:13→20:07)
[2017-01-27] MEDS: SODIUM CHLORIDE 0.9% FLUSH 10 ML FLUSH SCH ×2 (09:14→19:53)
--- NOTE | 2017-01-27 12:57 | HHI.CCPN ---
Subjective Remarks/Hospital Course 71-year-old male presents for evaluation of testicular swelling. Approximately 10 days ago he was started on Aldactone for his blood pressure which. He also noted that her sugars has been slightly elevated. Denies any fevers. He has been feeling generally weak as well. Denied abdominal pain nausea vomiting or diarrhea. He thought the scrotal swelling was from the Aldactone and came into the emergency department to be evaluated. 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 remains intubated overnight. off vasopressors. 12/30: Much more comfortable. Back to OR for washout today. Breathing without distress. STEFFEN improving. Patient has dilated cardiomyopathy with severe systolic heart failure and EF 25-30% by last ECHO 2013. May need low-dose inotrope during course of therapy. 12/30 1800 hrs: Seen after OR today. He has full neck veins and light wheezes with basilar crackles. His underlying LV dysfunction requires that we treat this aggressively with diuretics and subsequent electrolyte replacement. Will move back to [facility]. 12/31: Required rapid response for 2nd time in 12 hours. Will need intubation due to severe systolic heart failure and pulmonary edema. 01/01: Afebrile. Remains nothing by mouth for planned washout today. Decreased urine output noted. Hypertensive with sedation vacation. 01/02: Yesterday with washout and debridement without complication. Continues to be in A. fib intermittently rate controlled. Hemodynamically stable. One bowel movement. Will try spontaneous breathing trials today and attempt to extubate. If unsuccessful will initiate tube feeding. 01/03: Tmax 99.2. Episode of desaturation overnight recording FiO2 100%. Currently back to 50%. Chest x-ray essentially stable. Small left pleural effusion. Low lung volumes. Remains in a flutter rate controlled. Imminently bradycardic. 3 bowel movements on 01/02. Tolerating tube feeding. 01/04: FiO2 currently at 50%. We'll check CT chest. Possible need pleural effusions. Remains in a flutter rate control. Intermittently bradycardic. No bowel movement yesterday. Tube feeds currently off for possible extubation but tolerating previously. Afebrile 01/05: Remains on FiO2 of 50%. CT chest revealed small bilateral pleural effusions otherwise unremarkable. Noted is currently rate controlled. No bowel movement. Tube feeds at goal. Afebrile. Intermittently follows commands. 01/06: FiO2 40%. Self extubated yesterday. Lasted about 20 Mr. for requiring intubation. Was on 100 percent nonrebreather. Saturations are 90%. During intubation, Ambu bag malfunctioned. Patient was quickly intubated and was arousable moving all 4 extremities prior to re-sedation. We'll attempt sedation vacation again today. 01/07: Remains ventilator dependent, failed extubation yesterday. Unable to wean today, weak. 01/08: Tolerating CPAP trials but unable to extubate. 01/09: Plan transfer to LTAC. 01/10: Continued improvement in renal function. Contraction alkalosis with diuresis. Will require LTAC. 01/11: Will need to get a fair amount of excess water off. Consider gtt. 01/11: Great response to bumex gtt. 01/13: Continue diuresis. Replete electrolytes. Reduce vent rate. 01/14: Diuresed 10 liters net balance. Replace lytes. Correct HCO3 with diamox. Wean vent. 01/15: Despite aggressive diuresis and clearing of CXR he does not tolerate extended SBTs. He will need a tracheostomy if family wishes to pursue aggressive care. 01/16: Serratia in sputum, afebrile. WBC 5600. CXR benign. 01/17: Needs trach for alf weaning. Need to find family to consent. 01/18: Family has consented. Still fails weaning trials. Will perform trach. 01/19: Underwent percutaneous tracheostomy on 01/18. Remains on mechanical ventilation. 01/20: Remains on propofol for agitation. On mechanical ventilation via tracheostomy. Tolerating tube feeds. 01/22: off propofol. much less agitated today, but still some delirium and still CAM +. CPAP trials today. 01/23: more agitated today. very CAM +. still failing CPAP trials for tachycardia and agitation. 01/24: much more improved today. follows commands. less delirious. 01/25: mentation continues to improve. still CAM -. follows commands. OOB to chair today. 01/26: continues to do well. mentation continues to clear. OOB to chair daily. still awaiting placement. still weaning from vent, but slow given deconditioned state. Subjective: 01/27: Failed SBT due to tachycardia and tachypnea in am, tolerates CPAP with high PS. Following commands. Awaiting placement Objective Vital Signs Date Time Temp Pulse Resp B/P Pulse Ox O2 Delivery O2 Flow Rate FiO2 01/27/17 12:00 114 01/27/17 12:00 99.0 24 173/82 94 01/27/17 12:00 40 01/27/17 07:00 Mechanical Ventilator Intake and Output 01/26/17 01/26/17 01/27/17 08:00 16:00 00:00 Intake Total 510 ml 495 ml 545 ml Output Total 250 ml 700 ml 450 ml Balance 260 ml -205 ml 95 ml Result Diagram: 01/24/17 0340 Imaging Last Impressions Chest X-Ray 01/06/17 0600 Signed Impressions: Service Date/Time: Friday, January 06, 2017 04:21 - CONCLUSION: Cardiomegaly with bilateral pleural effusions and bibasilar infiltrates. The radiographic pattern is most consistent with pulmonary edema. Sushil Abdi Jr., MD Abdomen X-Ray 01/05/17 0000 Signed Impressions: Service Date/Time: Thursday, January 05, 2017 07:23 - CONCLUSION: Nasogastric tube across the GE junction with minimal gaseous distention. Aba Dick MD FACR Chest CT 01/04/17 0000 Signed Impressions: Service Date/Time: Wednesday, January 04, 2017 12:03 - CONCLUSION: 1. Consolidative changes with small bilateral pleural effusions in both bases. 2. Extensive coronary artery calcifications. Aba Dick MD FACR Renal Ultrasound 01/01/17 0000 Signed Impressions: Service Date/Time: Sunday, January 01, 2017 09:12 - CONCLUSION: Normal examination. Sushil Abdi Jr., MD Scrotum Ultrasound 12/28/16 1246 Signed Impressions: Service Date/Time: Wednesday, December 28, 2016 14:05 - CONCLUSION: 1. Marked thickening of the scrotal wall, up to 2.4 cm on the right. 2. Small complex left hydrocele. 3. Small complex cysts right testicle. Positive testicular blood flow. Nael Scott MD Abdomen/Pelvis CT 12/28/16 1237 Signed Impressions: Service Date/Time: Saturday, December 28, 2016 14:52 - CONCLUSION: 1. 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 2. Mild bilateral inguinal adenopathy and marked scrotal wall thickening. 3. Fat-containing 5.7 cm umbilical hernia. 4. Atherosclerotic aorta with some displaced intimal calcifications but without significant aneurysm. No bowel obstruction. Mild ileus. Nael Scott MD Objective Remarks GENERAL: 71-year-old male SKIN: Warm and dry. HEAD: Normocephalic. EYES: Pupils are 2 mm bilaterally and reactive. NECK: Tracheostomy in place CARDIOVASCULAR: Irreg Irreg Intermittently paced. RESPIRATORY: unlabored. secretions improved. on trach collar on my exam. GASTROINTESTINAL: Abdomen soft, non-tender, obese. MUSCULOSKELETAL: Currently with trace to 1+ bilateral lower extremity pitting edema. Foot pulses palpable. NEURO: Moves all 4 extremities spontaneously. Follows commands. Very weak. 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 Posttraumatic stress disorder Depression/anxiety History of peripheral neuropathy Acute agitated delirium- improved. Seroquel 100mg po q8hr. Haldol 5mg iv q4h prn for breakthrough agitation melatonin 5mg po qhs for sleep Provigil 200mg po daily. tizanidine 2mg po q12h. Not on home medications for underlying psychiatric diagnosis. CV: Congestive heart failure/systolic ejection fraction 25% 2013 Limited echo EF 35-40% with akinesis apical myocardium History of CABG 4 Hypertension Dyslipidemia History of single-chamber defibrillator 08/19 due to positive EPS study Holding valsartan 320 mg by mouth daily for hypertension due to acute kidney injury Continue Lipitor 40 mg by mouth daily/home medication for dyslipidemia On Coreg 25 mg q12h. Continue hydralazine 25 3 times a day/Isordil 10 every 8 as adjuvant while creatinine elevated Milrinone was discontinued 01/01 due to dysrhythmias Echo 2013 - EF 25-30%. No regional wall motion abnormality. Left atrium dilated Limited echo 2017 reveals EF 35-40%. Akinesis apical myocardium. Left atrium mild dilatated. Mild MR. Dr. Rob cardiology seeing for underlying atrial flutter. Likely ischemic workup Lasix 40 mg daily Continue spironolactone 12.5 mg daily Resp: Acute hypoxemic respiratory failure Ongoing tobaccoism Daily SBTs. working on pulmonary strengthening with 4-on-4-off CPAP trials- change to CPAP 28/04 as tolerated, with high PS Ventilator bundle. Status post tracheostomy 01/18 Bronchodilator therapy every 4 hours and as needed Secretions improving GI: Gastroesophageal reflux disease 5.7 cm umbilical hernia Glucerna 1.5 goal 55 cc an hour Pepcid 10 mg twice a day for GI prophylaxis. On Prilosec 20 mg by mouth daily at home Colace/senna twice a day for bowel regimen Umbilical hernia seen on CT is reducible. Levemir bid : Becca's gangrene BPH Postop for Becca's gangrene/ necrotizing fasciitis posterior scrotum, perineum and right perirectal tissue Postop washout and debridement for his gangrene Postoperative washout and debridement. 12/28 revealed gas in his perineum/scrotum and the right gluteal cleft. Followed by urology/Dr. Ling Perineal wound with considerable drainage. Endo: Diabetes mellitus Gout Holding Tanzeum 50 mg subcutaneous weekly. Holding allopurinol 200 mg by mouth daily for gout Sliding scale insulin with Accu-Cheks every 6 hours to maintain euglycemia. Levemir 5 BID Renal: Acute kidney injury - baseline creatinine 1.4, resolved. Initial CT revealed no signs of hydronephrosis. Urine eosinophils negative. Renal ultrasound revealed no hydronephrosis No indications for hemodialysis at this point. Heme: Normocytic anemia Leukocytosis Daily CBC. Monitor trends Transfused 2 units PRBCs during this hospital stay. No current indication for transfusion of blood at this time. ID: Becca's gangrene Group A beta strep UTI Unasyn 1.5 IV every 6 hours stopped 01/16 (switched to Rocephin per ID) Clindamycin 300 mg by mouth every 6 hours completed 01/02 Rocephin 2gm IV daily 01/16, anticipated stop date 01/29 Pertinent cultures Sputum 01/14 - Serratia Sputum - 12/31 -no growth Abdomen abscess - 12/28 - Escherichia coli, E faecalis and coag negative staph Abdomen abscess - 12/28 - acid-fast bacilli/fungus negative Blood cultures 2 - 12/28 - no growth Urine culture - 12/28 -group A beta strep Infectious disease consulted, signed off with anticipated abx stop date 01/29 FEN: Hyper-magnesium Hypokalemia - resolved Hypernatremia Replace electrolytes as clinically indicated MSK: PT/OT evaluate and treat Access - Right IJ CVL day placed 12/31 -> d/c - Left radial arterial line day placed 12/31 -> d/c -Left IJ CVL d/c 01/21 Prophylaxis - GI - Pepcid - DVT - SCD/heparin subcutaneous Overall impression: Remains very weak, restricted by chronic poor cardiac function. s/p tracheostomy. Son reasserts full code status for patient. Insurance requires 21 days on vent and 7 days post-trach in order to approve LTAC. Needs repeat [id number] tomorrow on Friday. 01/27 Enma Hannah MD Jan 27, 2017 12:57
[2017-01-27] MEDS: LABETALOL HCL 100 MG/20 ML VIAL IV PUSH PRN ×2 (13:20→18:11)
--- NOTE | 2017-01-27 15:11 | RADRPT ---
EXAM DATE/TIME: 01/27/2017 13:16 [facility] COMPARISON: CHEST SINGLE AP, January 18, 2017, 12:20. INDICATIONS : Respiratory disease. MEDICAL HISTORY : None. SURGICAL HISTORY : Pacemaker. ENCOUNTER: Subsequent ACUITY: 2 weeks PAIN SCORE: Non-responsive. LOCATION: chest FINDINGS: A single view of the chest demonstrates cardiomegaly and and interstitial edema. Previous median ster notomy. Tracheostomy tube noted with tip at the thoracic inlet. Nasogastric tube is unchanged. Left-s ided pacemaker again seen. Osseous structures are intact. CONCLUSION: Cardiomegaly with interstitial edema. Tomasz Yeh MD on January 27, 2017 at 15:09 Board Certified Radiologist. This report was verified electronically.
[2017-01-27] MEDS: cefTRIAXone INJ 2,000 MG in SODIUM CHLORIDE 0.9% INJ 100 ML IV SCH (17:10)
[2017-01-27] MEDS: RESP: ALBUTEROL 2.5 MG/IPRATROPIUM 0.5 MG NEB (PRN) INH (19:33)
[2017-01-27] MEDS: ATORVASTATIN 40 MG TAB PO SCH (20:07)
[2017-01-27] MEDS: MELATONIN 5 MG TAB PO SCH (20:07)
[2017-01-28] VITALS (14 sets, daily range): BP systolic 93–181; BP diastolic 52–87; PULSE 79–148; RESP 18–27; TEMP 98.7–99.2; O2SAT 90–100
[2017-01-28] MEDS: HYDROmorphone HCL PF 1 MG/ML VIAL IV PUSH PRN ×3 (00:37→17:00)
[2017-01-28] MEDS: INSULIN NovoLIN REGULAR SUPPLEMENTAL SCALE SQ SCH ×5 (01:59→20:31)
[2017-01-28] MEDS: HALOPERIDOL LACTATE 5 MG/ML AMP IV PRN ×4 (03:42→22:33)
[2017-01-28] MEDS: CHLORHEXIDINE GLUCONATE 2 % 1 PACK (2 CLOTHS) TOP SCH (03:42)
[2017-01-28] MEDS: hydrALAZINE HCL 25 MG TAB PO SCH ×3 (06:41→22:33)
[2017-01-28] MEDS: QUEtiapine FUMARATE 100 MG TAB PO SCH ×3 (06:42→22:33)
[2017-01-28] MEDS: ISOSORBIDE DINITRATE 10 MG TAB PO SCH ×3 (06:42→22:33)
[2017-01-28] MEDS: HEPARIN SODIUM - SQ 10,000 UNITS/ML VIAL SQ SCH ×3 (06:43→22:00)
[2017-01-28] MEDS: RESP: BUDESONIDE 0.5 MG/2 ML NEB NEB SCH ×2 (07:49→19:15)
[2017-01-28] MEDS: LABETALOL HCL 100 MG/20 ML VIAL IV PUSH PRN ×2 (08:07→10:30)
[2017-01-28] MEDS: CHLORHEXIDINE 0.12% (ORAL KIT) 15 ML CUP MT SCH ×2 (08:22→20:00)
[2017-01-28] MEDS: FUROSEMIDE 40 MG/5 ML UNIT DOSE CUP NG SCH (08:23)
[2017-01-28] MEDS: SODIUM CHLORIDE 0.9% FLUSH 10 ML FLUSH SCH ×2 (08:23→20:03)
[2017-01-28] MEDS: ARTIFICIAL TEARS OPTH SOLN 15 ML BTL EACH EYE SCH ×3 (08:23→17:00)
[2017-01-28] MEDS: DOCUSATE SODIUM 100 MG/10 ML UDC G-TUBE SCH ×2 (08:23→20:04)
[2017-01-28] MEDS: CARVEDILOL 12.5 MG TAB PO SCH ×2 (08:23→20:04)
[2017-01-28] MEDS: SPIRONOLACTONE 25 MG TAB PO SCH (08:24)
[2017-01-28] MEDS: MODAFINIL 200 MG TAB PO SCH (08:25)
[2017-01-28] MEDS: FAMOTIDINE 20 MG TAB PO SCH ×2 (08:26→20:04)
[2017-01-28] MEDS: SENNOSIDES SYRUP 8.8 MG/5 ML CUP PO SCH ×2 (09:09→20:04)
[2017-01-28] MEDS: INSULIN DETEMIR 100 UNITS/ML VIAL SQ SCH ×2 (09:09→20:05)
--- NOTE | 2017-01-28 11:26 | HHI.HCPN ---
No family at bedside, spoke with nurse to request Palliative care be called if son arrives at bedside to further clarify treatment goals. . MARKUS GRIMM Jan 28, 2017 11:26
--- NOTE | 2017-01-28 11:50 | PD.CONS ---
HPI History of Present Illness This is a 71 year old male with multiple medical problems including coronary artery disease, S/P CABG, hyperlipidemia, congestive heart failure (S/P pacemaker/defibrillator implantation), diabetes mellitus, gout, BPH, hypertension, PTSD, and peripheral neuropathy who is currently in the ICU being treated for necrotizing fasciitis, Becca gangrene, sepsis, acute respiratory failure, and multiple electrolyte abnormalities. He currently has a tracheostomy and is on CPAP and unable to provide any history, although he does nod his head appropriately to questions. The history has been obtained from the EMR. is following and the patient underwent debridement and washout of his necrotizing fasciitis on 12/30, then repeat debridement with washout of necrotizing fasciitis and closure 12/31. He is currently getting perineal wound care. He has required prolonged mechanical ventilation and he underwent tracheostomy placement (01/18). He currently has an NGT and is getting Glucerna 1.5 @ 55 mls/hr goal. GI has been consulted for PEG tube placement. (Dina Yun) PFSH Past Medical History Hypertension Diabetes mellitus Dyslipidemia Obesity Chronic tobacco use disorder Coronary artery disease status post myocardial infarction and CABG (2000) Chronic kidney disease CHF with EF 40% BPH Gout PTSD Agent [place] exposure Colonic polyps Neuropathy Vit B12 deficiency Past Surgical History CABG (4 vessels) Coronary artery angiogram Pacemaker insertion. I&D of dea-rectal abscess on 12/28/16 (Dina Yun) Coded Allergies: No Known Allergies (Verified , 12/28/16) Medications Allergies Coded Allergies Type Severity Reaction Last Updated Verified No Known Allergies 12/28/16 Yes Active Scripts Medications Dose Route/Sig Days Date Category Valsartan 320 Mg Tab 320 Mg PO DAILY 12/28/16 Reported Omeprazole 20 Mg Tab 20 Mg PO DAILY 12/28/16 Reported Furosemide 40 Mg Tab 60 Mg PO BID 12/28/16 Reported Cyanocobalamin Inj (Cyanocobalamin) 1,000 Mcg/Ml Inj 1,000 Mcg IM Q30D 12/28/16 Reported Carvedilol 25 Mg Tab 50 Mg PO BID 12/28/16 Reported Atorvastatin (Atorvastatin Calcium) 40 Mg Tab 40 Mg PO HS 12/28/16 Reported Allopurinol 100 Mg Tab 200 Mg PO DAILY 12/28/16 Reported Tanzeum 4-Pack Inj (Albiglutide) 50 Mg Pfpen 50 Mg SQ Q7D 12/28/16 Reported Spironolactone 25 Mg Tab 12.5 Mg PO DAILY 12/28/16 Reported Family History Father from complications of dementia Patient's mother is alive with multiple medical complications including heart disease and gallbladder disease. Mother is currently under hospice care. One brother is from a myocardial infarction. Social History 1 PPD tobacco. (Dina Yun) Review of Systems Gastrointestinal: DENIES: Abdominal pain ROS Unable to obtain, but does deny pain. (Dina Yun) GI Exam Vitals I&O Vital Signs Date Time Temp Pulse Resp B/P Pulse Ox O2 Delivery O2 Flow Rate FiO2 01/28/17 08:00 98.7 108 22 118/76 100 01/28/17 08:00 40 01/28/17 07:44 96 40 01/28/17 07:44 40 01/28/17 07:43 50 01/28/17 07:00 98 Mechanical Ventilator 40 01/28/17 04:30 100 50 01/28/17 04:00 50 01/28/17 04:00 98.7 92 18 157/85 100 01/28/17 00:00 98.8 79 18 93/52 98 01/28/17 00:00 99 50 01/28/17 00:00 50 01/27/17 20:00 50 01/27/17 20:00 91 01/27/17 20:00 99.0 91 18 187/99 98 01/27/17 19:33 100 50 01/27/17 19:00 98 Mechanical Ventilator 40 01/27/17 18:00 92 01/27/17 16:01 97 50 01/27/17 16:00 98.8 82 18 115/65 98 01/27/17 16:00 50 01/27/17 16:00 82 01/27/17 14:00 98 01/27/17 13:20 91 40 01/27/17 12:00 114 01/27/17 12:00 99.0 114 24 173/82 94 01/27/17 12:00 94 40 01/27/17 12:00 40 I/O 01/27/17 01/27/17 01/27/17 01/28/17 01/28/17 01/28/17 07:00 15:00 23:00 07:00 15:00 23:00 Intake Total 625 ml 644 ml 712 ml 680 ml Output Total 250 ml 550 ml 350 ml 500 ml Balance 375 ml 94 ml 362 ml 180 ml IV Total 136 ml 78 ml Tube Feeding 425 ml 544 ml 416 ml 472 ml Other 200 ml 100 ml 160 ml 130 ml Output Urine Total 250 ml 400 ml 300 ml 350 ml Stool Total 0 ml 150 ml 50 ml 150 ml Imaging Last Impressions Chest X-Ray 01/27/17 0000 Signed Impressions: Service Date/Time: Friday, January 27, 2017 13:16 - CONCLUSION: Cardiomegaly with interstitial edema. Tomasz Yeh MD Abdomen X-Ray 01/05/17 0000 Signed Impressions: Service Date/Time: Thursday, January 05, 2017 07:23 - CONCLUSION: Nasogastric tube across the GE junction with minimal gaseous distention. Aba Dick MD FACR Chest CT 01/04/17 0000 Signed Impressions: Service Date/Time: Wednesday, January 04, 2017 12:03 - CONCLUSION: 1. Consolidative changes with small bilateral pleural effusions in both bases. 2. Extensive coronary artery calcifications. Aba Dick MD FACR Renal Ultrasound 01/01/17 0000 Signed Impressions: Service Date/Time: Sunday, January 01, 2017 09:12 - CONCLUSION: Normal examination. Sushil Abdi Jr., MD Scrotum Ultrasound 12/28/16 1246 Signed Impressions: Service Date/Time: Wednesday, December 28, 2016 14:05 - CONCLUSION: 1. Marked thickening of the scrotal wall, up to 2.4 cm on the right. 2. Small complex left hydrocele. 3. Small complex cysts right testicle. Positive testicular blood flow. Nael Scott MD Abdomen/Pelvis CT 12/28/16 1237 Signed Impressions: Service Date/Time: Wednesday, December 28, 2016 14:52 - CONCLUSION: 1. 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 2. Mild bilateral inguinal adenopathy and marked scrotal wall thickening. 3. Fat-containing 5.7 cm umbilical hernia. 4. Atherosclerotic aorta with some displaced intimal calcifications but without significant aneurysm. No bowel obstruction. Mild ileus. Nael Scott MD Physical Examination HEENT: Normocephalic; atraumatic; no jaundice. CHEST: Tracheostomy to cpap. Diminished bases. CARDIAC: Regular, mildly tachycardic ABDOMEN: Soft, nondistended, nontender; no hepatosplenomegaly; bowel sounds are present in all four quadrants. EXTREMITIES: BLE slightly discolored SKIN: Drsg to scrotum GREASE REMOVER: Awake nods appropriately to yes/no questions (Dina Yun) Assessment and Plan Plan ASSESSMENT: - Dysphagia, FEN. Pt with multiple chronic medical problems (CAD, Hyperlipidemia, CHF, DM, HTN) now hospitalized for Becca gangrene, necrotizing fasciitis. following, s/p debridement and washout on 12/30 and then repeat debridement with washout with closure 12/31. He has required prolonged mechanical ventilation and he underwent tracheostomy placement (01/18). NGT with Glucerna 1.5 @ 55 mls/hr goal as recommended by Gasoline Service Attendant. GI has been consulted for PEG tube placement. PLAN: - Plan for EGD with PEG tube placement - Obtain consents - NPO after MN - Hold heparin after MN - Gasoline Service Attendant recommends Glucerna 1.5 at 55cc/hr - On abx. - Supportive care - Further recommendations to follow based on results of above - PT seen and examined by Dr. Abernathy and myself and this note is written on his behalf (Dina Yun) Physician Comments Patient seen and examined Agree with above Continue with current supportive care Monitor labs Plan for PEG placement tomorrow (Joey Abernathy MD) Dina Yun Jan 28, 2017 11:50 Joey Abernathy MD Jan 28, 2017 21:14
--- NOTE | 2017-01-28 13:43 | HHI.CCPN ---
Subjective Remarks/Hospital Course 71-year-old male presents for evaluation of testicular swelling. Approximately 10 days ago he was started on Aldactone for his blood pressure which. He also noted that her sugars has been slightly elevated. Denies any fevers. He has been feeling generally weak as well. Denied abdominal pain nausea vomiting or diarrhea. He thought the scrotal swelling was from the Aldactone and came into the emergency department to be evaluated. 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 remains intubated overnight. off vasopressors. 12/30: Much more comfortable. Back to OR for washout today. Breathing without distress. STEFFEN improving. Patient has dilated cardiomyopathy with severe systolic heart failure and EF 25-30% by last ECHO 2013. May need low-dose inotrope during course of therapy. 12/30 1800 hrs: Seen after OR today. He has full neck veins and light wheezes with basilar crackles. His underlying LV dysfunction requires that we treat this aggressively with diuretics and subsequent electrolyte replacement. Will move back to [facility]. 12/31: Required rapid response for 2nd time in 12 hours. Will need intubation due to severe systolic heart failure and pulmonary edema. 01/01: Afebrile. Remains nothing by mouth for planned washout today. Decreased urine output noted. Hypertensive with sedation vacation. 01/02: Yesterday with washout and debridement without complication. Continues to be in A. fib intermittently rate controlled. Hemodynamically stable. One bowel movement. Will try spontaneous breathing trials today and attempt to extubate. If unsuccessful will initiate tube feeding. 01/03: Tmax 99.2. Episode of desaturation overnight recording FiO2 100%. Currently back to 50%. Chest x-ray essentially stable. Small left pleural effusion. Low lung volumes. Remains in a flutter rate controlled. Imminently bradycardic. 3 bowel movements on 01/02. Tolerating tube feeding. 01/04: FiO2 currently at 50%. We'll check CT chest. Possible need pleural effusions. Remains in a flutter rate control. Intermittently bradycardic. No bowel movement yesterday. Tube feeds currently off for possible extubation but tolerating previously. Afebrile 01/05: Remains on FiO2 of 50%. CT chest revealed small bilateral pleural effusions otherwise unremarkable. Noted is currently rate controlled. No bowel movement. Tube feeds at goal. Afebrile. Intermittently follows commands. 01/06: FiO2 40%. Self extubated yesterday. Lasted about 20 Mr. for requiring intubation. Was on 100 percent nonrebreather. Saturations are 90%. During intubation, Ambu bag malfunctioned. Patient was quickly intubated and was arousable moving all 4 extremities prior to re-sedation. We'll attempt sedation vacation again today. 01/07: Remains ventilator dependent, failed extubation yesterday. Unable to wean today, weak. 01/08: Tolerating CPAP trials but unable to extubate. 01/09: Plan transfer to LTAC. 01/10: Continued improvement in renal function. Contraction alkalosis with diuresis. Will require LTAC. 01/11: Will need to get a fair amount of excess water off. Consider gtt. 01/11: Great response to bumex gtt. 01/13: Continue diuresis. Replete electrolytes. Reduce vent rate. 01/14: Diuresed 10 liters net balance. Replace lytes. Correct HCO3 with diamox. Wean vent. 01/15: Despite aggressive diuresis and clearing of CXR he does not tolerate extended SBTs. He will need a tracheostomy if family wishes to pursue aggressive care. 01/16: Serratia in sputum, afebrile. WBC 5600. CXR benign. 01/17: Needs trach for fpc weaning. Need to find family to consent. 01/18: Family has consented. Still fails weaning trials. Will perform trach. 01/19: Underwent percutaneous tracheostomy on 01/18. Remains on mechanical ventilation. 01/20: Remains on propofol for agitation. On mechanical ventilation via tracheostomy. Tolerating tube feeds. 01/22: off propofol. much less agitated today, but still some delirium and still CAM +. CPAP trials today. 01/23: more agitated today. very CAM +. still failing CPAP trials for tachycardia and agitation. 01/24: much more improved today. follows commands. less delirious. 01/25: mentation continues to improve. still CAM -. follows commands. OOB to chair today. 01/26: continues to do well. mentation continues to clear. OOB to chair daily. still awaiting placement. still weaning from vent, but slow given deconditioned state. Subjective: 01/27: Failed SBT due to tachycardia and tachypnea in am, tolerates CPAP with high PS. Following commands. Awaiting placement 01/28: Tachypneic and tachycardic on CPAP, intermittently agitated. Intermittent wheezing on exam. Denied placement by [employer] due to no PEG tube/or definitive feeding tube Objective Vital Signs Date Time Temp Pulse Resp B/P Pulse Ox O2 Delivery O2 Flow Rate FiO2 01/28/17 12:00 98.7 110 22 158/77 100 01/28/17 12:00 40 01/28/17 07:00 Mechanical Ventilator Intake and Output 01/27/17 01/27/17 01/28/17 08:00 16:00 00:00 Intake Total 625 ml 644 ml 712 ml Output Total 250 ml 550 ml 350 ml Balance 375 ml 94 ml 362 ml Result Diagram: 01/24/17 0340 Imaging Last Impressions Chest X-Ray 01/06/17 0600 Signed Impressions: Service Date/Time: Friday, January 06, 2017 04:21 - CONCLUSION: Cardiomegaly with bilateral pleural effusions and bibasilar infiltrates. The radiographic pattern is most consistent with pulmonary edema. Sushil Abdi Jr., MD Abdomen X-Ray 01/05/17 0000 Signed Impressions: Service Date/Time: Thursday, January 05, 2017 07:23 - CONCLUSION: Nasogastric tube across the GE junction with minimal gaseous distention. Aba Dick MD FACR Chest CT 01/04/17 0000 Signed Impressions: Service Date/Time: Wednesday, January 04, 2017 12:03 - CONCLUSION: 1. Consolidative changes with small bilateral pleural effusions in both bases. 2. Extensive coronary artery calcifications. Aba Dick MD FACR Renal Ultrasound 01/01/17 0000 Signed Impressions: Service Date/Time: Sunday, January 01, 2017 09:12 - CONCLUSION: Normal examination. Sushil Abdi Jr., MD Scrotum Ultrasound 12/28/16 1246 Signed Impressions: Service Date/Time: Wednesday, December 28, 2016 14:05 - CONCLUSION: 1. Marked thickening of the scrotal wall, up to 2.4 cm on the right. 2. Small complex left hydrocele. 3. Small complex cysts right testicle. Positive testicular blood flow. Nael Scott MD Abdomen/Pelvis CT 12/28/16 1237 Signed Impressions: Service Date/Time: Wednesday, December 28, 2016 14:52 - CONCLUSION: 1. 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 2. Mild bilateral inguinal adenopathy and marked scrotal wall thickening. 3. Fat-containing 5.7 cm umbilical hernia. 4. Atherosclerotic aorta with some displaced intimal calcifications but without significant aneurysm. No bowel obstruction. Mild ileus. Nael Scott MD Objective Remarks GENERAL: 71-year-old male, on vent. Wide awake tachypneic SKIN: Warm and dry. HEAD: Normocephalic. EYES: Pupils are 2 mm bilaterally and reactive. NECK: Tracheostomy in place CARDIOVASCULAR: Irreg Irreg Intermittently paced. RESPIRATORY: unlabored. secretions improved. on trach collar on my exam. GASTROINTESTINAL: Abdomen soft, non-tender, obese. MUSCULOSKELETAL: Currently with trace to 1+ bilateral lower extremity pitting edema. Foot pulses palpable. NEURO: Moves all 4 extremities spontaneously. Follows commands. Very weak. 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 Posttraumatic stress disorder Depression/anxiety History of peripheral neuropathy Acute agitated delirium- improved. Seroquel 100mg po q8hr. Haldol 5mg iv q4h prn for breakthrough agitation Melatonin 5mg po qhs for sleep Provigil 200mg po daily. Tizanidine 2mg po q12h. Not on home medications for underlying psychiatric diagnosis. CV: Congestive heart failure/systolic ejection fraction 25% 2013 Limited echo EF 35-40% with akinesis apical myocardium History of CABG 4 Hypertension Dyslipidemia History of single-chamber defibrillator 08/19 due to positive EPS study Holding valsartan 320 mg by mouth daily for hypertension due to acute kidney injury Continue Lipitor 40 mg by mouth daily/home medication for dyslipidemia On Coreg 25 mg q12h. Continue hydralazine 25mg three times a day/Isordil 10 every 8 as adjuvant while creatinine elevated Milrinone was discontinued 01/01 due to dysrhythmias Echo 2013 - EF 25-30%. No regional wall motion abnormality. Left atrium dilated. Limited echo 2017 reveals EF 35-40%. Akinesis apical myocardium. Left atrium mild dilatated. Mild MRTushar Rob cardiology seeing for underlying atrial flutter. Likely ischemic workup Lasix 40 mg daily. Continue spironolactone 12.5 mg daily Resp: Acute hypoxemic respiratory failure Ongoing tobaccoism Daily SBTs. working on pulmonary strengthening with CPAP 28/04 as tolerated, with high PS Ventilator bundle. Status post tracheostomy 01/18 Bronchodilator therapy every 4 hours and as needed Secretions improving CXR in am GI: Gastroesophageal reflux disease 5.7 cm umbilical hernia Glucerna 1.5 goal 55 cc an hour Pepcid 10 mg twice a day for GI prophylaxis. On Prilosec 20 mg by mouth daily at home Colace/senna twice a day for bowel regimen Umbilical hernia seen on CT is reducible. Levemir bid GI consulted for PEG tube placement : Becca's gangrene BPH Postop for Becca's gangrene/ necrotizing fasciitis posterior scrotum, perineum and right perirectal tissue Postop washout and debridement for his gangrene Postoperative washout and debridement. 12/28 revealed gas in his perineum/scrotum and the right gluteal cleft. Followed by urology/Dr. Ling Perineal wound with considerable drainage. Endo: Diabetes mellitus Gout Holding Tanzeum 50 mg subcutaneous weekly. Holding allopurinol 200 mg by mouth daily for gout Sliding scale insulin with Accu-Cheks every 6 hours to maintain euglycemia. Levemir 5 BID Renal: Acute kidney injury - baseline creatinine 1.4, resolved. Initial CT revealed no signs of hydronephrosis. Urine eosinophils negative. Renal ultrasound revealed no hydronephrosis No indications for hemodialysis at this point. Heme: Normocytic anemia Leukocytosis Daily CBC. Monitor trends Transfused 2 units PRBCs during this hospital stay. No current indication for transfusion of blood at this time. ID: Becca's gangrene Group A beta strep UTI Unasyn 1.5 IV every 6 hours stopped 01/16 (switched to Rocephin per ID) Clindamycin 300 mg by mouth every 6 hours completed 01/02 Rocephin 2gm IV daily 01/16, anticipated stop date 01/29 Pertinent cultures Sputum 01/14 - Serratia Sputum - 12/31 -no growth Abdomen abscess - 12/28 - Escherichia coli, E faecalis and coag negative staph Abdomen abscess - 12/28 - acid-fast bacilli/fungus negative Blood cultures 2 - 12/28 - no growth Urine culture - 12/28 -group A beta strep Infectious disease consulted, signed off with anticipated abx stop date 01/29 FEN: Hyper-magnesium Hypokalemia - resolved Hypernatremia Replace electrolytes as clinically indicated MSK: PT/OT evaluate and treat Access - Right IJ CVL day placed 12/31 -> d/c - Left radial arterial line day placed 12/31 -> d/c -Left IJ CVL d/c 01/21 Prophylaxis - GI - Pepcid - DVT - SCD/heparin subcutaneous Overall impression: Remains very weak, restricted by chronic poor cardiac function. s/p tracheostomy. Son reasserts full code status for patient. Insurance requires 21 days on vent and 7 days post-trach in order to approve LTAC. Refused LTAC by [employer] after [id number] 01/28 due to lack of PEG tube Enma Hannah MD Jan 28, 2017 13:43
[2017-01-28] MEDS: cefTRIAXone INJ 2,000 MG in SODIUM CHLORIDE 0.9% INJ 100 ML IV SCH (17:00)
[2017-01-28] MEDS: ATORVASTATIN 40 MG TAB PO SCH (20:04)
[2017-01-28] MEDS: MELATONIN 5 MG TAB PO SCH (20:04)
[2017-01-29] VITALS (12 sets, daily range): BP systolic 85–190; BP diastolic 53–97; PULSE 92–110; RESP 18–26; TEMP 98–99.9; O2SAT 92–98
[2017-01-29] MEDS: INSULIN NovoLIN REGULAR SUPPLEMENTAL SCALE SQ SCH ×4 (02:00→19:48)
[2017-01-29] MEDS: CHLORHEXIDINE GLUCONATE 2 % 1 PACK (2 CLOTHS) TOP SCH (04:00)
[2017-01-29] MEDS: HYDROmorphone HCL PF 1 MG/ML VIAL IV PUSH PRN ×2 (04:19→16:27)
--- NOTE | 2017-01-29 04:20 | RADRPT ---
EXAM DATE/TIME: 01/29/2017 03:37 [facility] COMPARISON: CHEST SINGLE AP, January 27, 2017, 13:16. INDICATIONS : Short of breath. MEDICAL HISTORY : None. SURGICAL HISTORY : Pacemaker. ENCOUNTER: Subsequent ACUITY: 2 weeks PAIN SCORE: Non-responsive. LOCATION: Bilateral chest FINDINGS: The tracheostomy tube and NG tube remain in place. There continues to be increased interstitial [place] ngs bilaterally suggestive of pulmonary edema. This is not significantly changed compared to the prio r study. The heart size is diffusely enlarged but stable. The bony structures are stable. CONCLUSION: No significant interval change of the bilateral pulmonary edema. Stable cardiomegaly. Rivas Keys MD on January 29, 2017 at 4:18 Board Certified Radiologist. This report was verified electronically.
[2017-01-29 04:27] LABS: AUTOMATED NEUTROPHIL # 7.3 TH/MM3 (1.8-7.7); BASOPHIL % 0.4 % (0.0-2.0); EOSINOPHIL # 0.1 TH/MM3 (0-0.4); EOSINOPHIL % 0.6 % (0.0-4.0); HEMATOCRIT 24.1 % (39.0-51.0); HEMO FLAGS DIFF FINAL; LYMPH % 19.8 % (9.0-44.0); MEAN CELL VOLUME 87.7 FL (80.0-100.0); MEAN CORPUSCULAR HEMOGLOBIN 28.5 PG (27.0-34.0); MEAN CORPUSCULAR HGB CONC 32.5 % (32.0-36.0); MONO % 6.7 % (0.0-8.0); NEUT % 72.5 % (16.0-70.0); PLATELET COUNT 273 TH/MM3 (150-450); RED BLOOD COUNT 2.74 MIL/MM3 (4.50-5.90); RED CELL DISTRIBUTION WIDTH 20.8 % (11.6-17.2)
[2017-01-29 04:54] LABS: ALKALINE PHOSPHATASE 125 U/L (45-117); ALT (GPT) 47 U/L (12-78); ANION GAP 7 MEQ/L (5-15); AST (GOT) 26 U/L (15-37); BICARBONATE 35.5 MEQ/L (21.0-32.0); BLOOD UREA NITROGEN 63 MG/DL (7-18); CHLORIDE 108 MEQ/L (98-107); GLOMERULAR FILTRATION RATE 40 ML/MIN (>89); MAGNESIUM 2.6 MG/DL (1.5-2.5); POTASSIUM 4.3 MEQ/L (3.5-5.1); SODIUM (NA) 150 MEQ/L (136-145); TOTAL BILIRUBIN ADULT 0.4 MG/DL (0.2-1.0)
[2017-01-29] MEDS: hydrALAZINE HCL 25 MG TAB PO SCH ×3 (06:23→22:00)
[2017-01-29] MEDS: QUEtiapine FUMARATE 100 MG TAB PO SCH ×3 (06:23→22:00)
[2017-01-29] MEDS: ISOSORBIDE DINITRATE 10 MG TAB PO SCH ×3 (06:23→22:00)
[2017-01-29] MEDS: RESP: BUDESONIDE 0.5 MG/2 ML NEB NEB SCH ×2 (07:21→19:46)
[2017-01-29] MEDS: MODAFINIL 200 MG TAB PO SCH (08:07)
[2017-01-29] MEDS: SENNOSIDES SYRUP 8.8 MG/5 ML CUP PO SCH ×2 (08:07→19:46)
[2017-01-29] MEDS: DOCUSATE SODIUM 100 MG/10 ML UDC G-TUBE SCH ×2 (08:07→19:46)
[2017-01-29] MEDS: CARVEDILOL 12.5 MG TAB PO SCH ×2 (08:08→19:47)
[2017-01-29] MEDS: ARTIFICIAL TEARS OPTH SOLN 15 ML BTL EACH EYE SCH ×3 (08:08→18:00)
[2017-01-29] MEDS: SODIUM CHLORIDE 0.9% FLUSH 10 ML FLUSH SCH ×2 (08:08→19:47)
[2017-01-29] MEDS: FAMOTIDINE 20 MG TAB PO SCH ×2 (08:08→19:47)
[2017-01-29] MEDS: SPIRONOLACTONE 25 MG TAB PO SCH (08:08)
[2017-01-29] MEDS: CHLORHEXIDINE 0.12% (ORAL KIT) 15 ML CUP MT SCH ×2 (08:08→19:48)
[2017-01-29] MEDS: FUROSEMIDE 40 MG/5 ML UNIT DOSE CUP NG SCH (08:19)
[2017-01-29] MEDS: INSULIN DETEMIR 100 UNITS/ML VIAL SQ SCH ×2 (08:44→19:48)
[2017-01-29] MEDS: LABETALOL HCL 100 MG/20 ML VIAL IV PUSH PRN ×2 (12:00→18:53)
[2017-01-29] MEDS: FREE WATER NG SCH ×2 (12:15→18:00)
--- NOTE | 2017-01-29 12:30 | HHI.CCPN ---
Subjective Remarks/Hospital Course 71-year-old male presents for evaluation of testicular swelling. Approximately 10 days ago he was started on Aldactone for his blood pressure which. He also noted that her sugars has been slightly elevated. Denies any fevers. He has been feeling generally weak as well. Denied abdominal pain nausea vomiting or diarrhea. He thought the scrotal swelling was from the Aldactone and came into the emergency department to be evaluated. 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 remains intubated overnight. off vasopressors. 12/30: Much more comfortable. Back to OR for washout today. Breathing without distress. STEFFEN improving. Patient has dilated cardiomyopathy with severe systolic heart failure and EF 25-30% by last ECHO 2013. May need low-dose inotrope during course of therapy. 12/30 1800 hrs: Seen after OR today. He has full neck veins and light wheezes with basilar crackles. His underlying LV dysfunction requires that we treat this aggressively with diuretics and subsequent electrolyte replacement. Will move back to [facility]. 12/31: Required rapid response for 2nd time in 12 hours. Will need intubation due to severe systolic heart failure and pulmonary edema. 01/01: Afebrile. Remains nothing by mouth for planned washout today. Decreased urine output noted. Hypertensive with sedation vacation. 01/02: Yesterday with washout and debridement without complication. Continues to be in A. fib intermittently rate controlled. Hemodynamically stable. One bowel movement. Will try spontaneous breathing trials today and attempt to extubate. If unsuccessful will initiate tube feeding. 01/03: Tmax 99.2. Episode of desaturation overnight recording FiO2 100%. Currently back to 50%. Chest x-ray essentially stable. Small left pleural effusion. Low lung volumes. Remains in a flutter rate controlled. Imminently bradycardic. 3 bowel movements on 01/02. Tolerating tube feeding. 01/04: FiO2 currently at 50%. We'll check CT chest. Possible need pleural effusions. Remains in a flutter rate control. Intermittently bradycardic. No bowel movement yesterday. Tube feeds currently off for possible extubation but tolerating previously. Afebrile 01/05: Remains on FiO2 of 50%. CT chest revealed small bilateral pleural effusions otherwise unremarkable. Noted is currently rate controlled. No bowel movement. Tube feeds at goal. Afebrile. Intermittently follows commands. 01/06: FiO2 40%. Self extubated yesterday. Lasted about 20 Mr. for requiring intubation. Was on 100 percent nonrebreather. Saturations are 90%. During intubation, Ambu bag malfunctioned. Patient was quickly intubated and was arousable moving all 4 extremities prior to re-sedation. We'll attempt sedation vacation again today. 01/07: Remains ventilator dependent, failed extubation yesterday. Unable to wean today, weak. 01/08: Tolerating CPAP trials but unable to extubate. 01/09: Plan transfer to LTAC. 01/10: Continued improvement in renal function. Contraction alkalosis with diuresis. Will require LTAC. 01/11: Will need to get a fair amount of excess water off. Consider gtt. 01/11: Great response to bumex gtt. 01/13: Continue diuresis. Replete electrolytes. Reduce vent rate. 01/14: Diuresed 10 liters net balance. Replace lytes. Correct HCO3 with diamox. Wean vent. 01/15: Despite aggressive diuresis and clearing of CXR he does not tolerate extended SBTs. He will need a tracheostomy if family wishes to pursue aggressive care. 01/16: Serratia in sputum, afebrile. WBC 5600. CXR benign. 01/17: Needs trach for [facility]ci weaning. Need to find family to consent. 01/18: Family has consented. Still fails weaning trials. Will perform trach. 01/19: Underwent percutaneous tracheostomy on 01/18. Remains on mechanical ventilation. 01/20: Remains on propofol for agitation. On mechanical ventilation via tracheostomy. Tolerating tube feeds. 01/22: off propofol. much less agitated today, but still some delirium and still CAM +. CPAP trials today. 01/23: more agitated today. very CAM +. still failing CPAP trials for tachycardia and agitation. 01/24: much more improved today. follows commands. less delirious. 01/25: mentation continues to improve. still CAM -. follows commands. OOB to chair today. 01/26: continues to do well. mentation continues to clear. OOB to chair daily. still awaiting placement. still weaning from vent, but slow given deconditioned state. 01/27: Failed SBT due to tachycardia and tachypnea in am, tolerates CPAP with high PS. Following commands. Awaiting placement 01/28: Tachypneic and tachycardic on CPAP, intermittently agitated. Intermittent wheezing on exam. Denied placement by [employer] due to no PEG tube/or definitive feeding tube SUBJECTIVE 01/29: Calmer today, tolerating CPAP with PS 15. CXR shows unchanged pulm edema and LLL consolidation. BUN creat increased from 33/1.1 to 63/1.7 Lasix held. GI unable to get consent for PEG placement at this time Objective Vital Signs Date Time Temp Pulse Resp B/P Pulse Ox O2 Delivery O2 Flow Rate FiO2 01/29/17 08:00 98.9 92 20 128/70 92 01/29/17 08:00 50 01/29/17 07:00 Mechanical Ventilator Intake and Output 01/28/17 01/28/17 01/29/17 08:00 16:00 00:00 Intake Total 680 ml 624 ml 686 ml Output Total 500 ml 1210 ml 475 ml Balance 180 ml -586 ml 211 ml Result Diagram: 01/29/17 0337 01/29/17 0337 Imaging Last Impressions Chest X-Ray 01/06/17 0600 Signed Impressions: Service Date/Time: Friday, January 06, 2017 04:21 - CONCLUSION: Cardiomegaly with bilateral pleural effusions and bibasilar infiltrates. The radiographic pattern is most consistent with pulmonary edema. Sushil Abdi Jr., MD Abdomen X-Ray 01/05/17 0000 Signed Impressions: Service Date/Time: Thursday, January 05, 2017 07:23 - CONCLUSION: Nasogastric tube across the GE junction with minimal gaseous distention. Aba Dick MD FACR Chest CT 01/04/17 0000 Signed Impressions: Service Date/Time: Wednesday, January 04, 2017 12:03 - CONCLUSION: 1. Consolidative changes with small bilateral pleural effusions in both bases. 2. Extensive coronary artery calcifications. Aba Dick MD FACR Renal Ultrasound 01/01/17 0000 Signed Impressions: Service Date/Time: Sunday, January 01, 2017 09:12 - CONCLUSION: Normal examination. Sushil Abdi Jr., MD Scrotum Ultrasound 12/28/16 1246 Signed Impressions: Service Date/Time: Wednesday, December 28, 2016 14:05 - CONCLUSION: 1. Marked thickening of the scrotal wall, up to 2.4 cm on the right. 2. Small complex left hydrocele. 3. Small complex cysts right testicle. Positive testicular blood flow. Nael Scott MD Abdomen/Pelvis CT 12/28/16 1237 Signed Impressions: Service Date/Time: Wednesday, December 28, 2016 14:52 - CONCLUSION: 1. 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 2. Mild bilateral inguinal adenopathy and marked scrotal wall thickening. 3. Fat-containing 5.7 cm umbilical hernia. 4. Atherosclerotic aorta with some displaced intimal calcifications but without significant aneurysm. No bowel obstruction. Mild ileus. Nael Scott MD Objective Remarks GENERAL: 71-year-old male, on vent. Wide awake appears comfortable on vent SKIN: Warm and dry. HEAD: Normocephalic. EYES: Pupils are 2 mm bilaterally and reactive. NECK: Tracheostomy in place CARDIOVASCULAR: Irreg Irreg Intermittently paced. RESPIRATORY: unlabored. secretions improved. on CPAP with PS 15 on my exam GASTROINTESTINAL: Abdomen soft, non-tender, obese. MUSCULOSKELETAL: Currently with trace to 1+ bilateral lower extremity pitting edema. Foot pulses palpable. NEURO: Moves all 4 extremities spontaneously. Follows commands. Very weak. 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 Posttraumatic stress disorder Depression/anxiety History of peripheral neuropathy Acute agitated delirium- improved. Seroquel 100mg po q8hr. Haldol 5mg iv q4h prn for breakthrough agitation Melatonin 5mg po qhs for sleep Provigil 200mg po daily. Tizanidine 2mg po q12h. Not on home medications for underlying psychiatric diagnosis. CV: Congestive heart failure/systolic ejection fraction 25% 2014 Limited echo EF 35-40% with akinesis apical myocardium History of CABG 4 Hypertension Dyslipidemia History of single-chamber defibrillator 08/19 due to positive EPS study Holding valsartan 320 mg by mouth daily for hypertension due to acute kidney injury Continue Lipitor 40 mg by mouth daily/home medication for dyslipidemia On Coreg 25 mg q12h. Continue hydralazine 25mg three times a day/Isordil 10 every 8 as adjuvant while creatinine elevated Milrinone was discontinued 01/01 due to dysrhythmias Echo 2013 - EF 25-30%. No regional wall motion abnormality. Left atrium dilated. Limited echo 2016 reveals EF 35-40%. Akinesis apical myocardium. Left atrium mild dilatated. Mild MR. Dr. Rob cardiology seeing for underlying atrial flutter. Likely ischemic workup Lasix 40 mg daily. Continue spironolactone 12.5 mg daily- HOLD both 01/29 due to worsening ARF, creat 1.7 Free water replacement 200 ml q6 Resp: Acute hypoxemic respiratory failure Ongoing tobaccoism Daily SBTs. working on pulmonary strengthening with CPAP 28/04 as tolerated, with high PS Ventilator bundle. Status post tracheostomy 01/18 Bronchodilator therapy every 4 hours and as needed Secretions improving CXR in am Up to stretcher chair as tolerated GI: Gastroesophageal reflux disease 5.7 cm umbilical hernia Glucerna 1.5 goal 55 cc an hour Pepcid 10 mg twice a day for GI prophylaxis. On Prilosec 20 mg by mouth daily at home Colace/senna twice a day for bowel regimen Umbilical hernia seen on CT is reducible. Levemir bid GI consulted for PEG tube placement : Becca's gangrene BPH Postop for Becca's gangrene/ necrotizing fasciitis posterior scrotum, perineum and right perirectal tissue Postop washout and debridement for his gangrene Postoperative washout and debridement. 12/28 revealed gas in his perineum/scrotum and the right gluteal cleft. Followed by urology/Dr. Ling Endo: Diabetes mellitus Gout Holding Tanzeum 50 mg subcutaneous weekly. Holding allopurinol 200 mg by mouth daily for gout Sliding scale insulin with Accu-Cheks every 6 hours to maintain euglycemia. Levemir 5 BID Renal: Acute kidney injury - baseline creatinine 1.4, resolved. Initial CT revealed no signs of hydronephrosis. Urine eosinophils negative. Renal ultrasound revealed no hydronephrosis No indications for hemodialysis at this point. Heme: Normocytic anemia Leukocytosis Daily CBC. Monitor trends Transfused 2 units PRBCs during this hospital stay. No current indication for transfusion of blood at this time. ID: Becca's gangrene Group A beta strep UTI Unasyn 1.5 IV every 6 hours stopped 01/16 (switched to Rocephin per ID) Clindamycin 300 mg by mouth every 6 hours completed 01/02 Rocephin 2gm IV daily 01/16, anticipated stop date 01/29 Pertinent cultures Sputum 01/14 - Serratia Sputum - 12/31 -no growth Abdomen abscess - 12/28 - Escherichia coli, E faecalis and coag negative staph Abdomen abscess - 12/28 - acid-fast bacilli/fungus negative Blood cultures 2 - 12/28 - no growth Urine culture - 12/28 -group A beta strep Infectious disease consulted, signed off with anticipated abx stop date 01/29 FEN: Hyper-magnesium Hypokalemia - resolved Hypernatremia Replace electrolytes as clinically indicated MSK: PT/OT evaluate and treat Access - Right IJ CVL day placed 12/31 -> d/c - Left radial arterial line day placed 12/31 -> d/c -Left IJ CVL d/c 01/21 Prophylaxis - GI - Pepcid - DVT - SCD/heparin subcutaneous Overall impression: Remains very weak, restricted by chronic poor cardiac function. s/p tracheostomy. Son reasserts full code status for patient. Insurance requires 21 days on vent and 7 days post-trach in order to approve LTAC. Refused LTAC by [employer] after [id number] 01/28 due to lack of PEG tube Enma Hannah MD Jan 29, 2017 12:29
--- NOTE | 2017-01-29 16:59 | HHI.GIFU ---
Subjective Remarks Pt in bed, on vent. Grunts responses- indicated that he had no n/v, abdominal pain. (Sophie Soto) Objective Vitals I&O Vital Signs Date Time Temp Pulse Resp B/P Pulse Ox O2 Delivery O2 Flow Rate FiO2 01/29/17 15:37 96 40 01/29/17 12:00 50 01/29/17 12:00 98.0 108 23 190/91 97 01/29/17 11:28 97 40 01/29/17 08:00 98.9 92 20 128/70 92 01/29/17 08:00 50 01/29/17 07:28 94 40 01/29/17 07:28 40 01/29/17 07:00 92 Mechanical Ventilator 40 01/29/17 04:19 94 40 01/29/17 04:00 50 01/29/17 04:00 99.0 108 18 187/97 98 01/29/17 00:56 97 40 01/29/17 00:00 50 01/29/17 00:00 98.8 96 18 85/53 97 01/28/17 22:20 100 40 01/28/17 20:00 40 01/28/17 20:00 99.2 148 25 181/87 92 01/28/17 19:17 98 40 01/28/17 19:00 95 Mechanical Ventilator 40 01/28/17 17:47 100 30 I/O 01/28/17 01/28/17 01/28/17 01/29/17 01/29/17 01/29/17 07:00 15:00 23:00 07:00 15:00 23:00 Intake Total 680 ml 624 ml 686 ml 159 ml 200 ml Output Total 500 ml 1210 ml 475 ml 450 ml 850 ml Balance 180 ml -586 ml 211 ml -291 ml -650 ml IV Total 78 ml 81 ml 122 ml 39 ml 0 ml Tube Feeding 472 ml 543 ml 444 ml 0 ml Other 130 ml 120 ml 120 ml 200 ml Output Urine Total 350 ml 1110 ml 375 ml 350 ml 850 ml Stool Total 150 ml 100 ml 100 ml 100 ml 0 ml # Bowel Movements 3 Laboratory Laboratory Tests Test 01/29/17 03:37 White Blood Count 10.0 Red Blood Count 2.74 Hemoglobin 7.8 Hematocrit 24.1 Mean Corpuscular Volume 87.7 Mean Corpuscular Hemoglobin 28.5 Mean Corpuscular Hemoglobin 32.5 Concent Red Cell Distribution Width 20.8 Platelet Count 273 Mean Platelet Volume 8.6 Neutrophils (%) (Auto) 72.5 Lymphocytes (%) (Auto) 19.8 Monocytes (%) (Auto) 6.7 Eosinophils (%) (Auto) 0.6 Basophils (%) (Auto) 0.4 Neutrophils # (Auto) 7.3 Lymphocytes # (Auto) 2.0 Monocytes # (Auto) 0.7 Eosinophils # (Auto) 0.1 Basophils # (Auto) 0.0 CBC Comment DIFF FINAL Differential Comment Sodium Level 150 Potassium Level 4.3 Chloride Level 108 Carbon Dioxide Level 35.5 Anion Gap 7 Blood Urea Nitrogen 63 Creatinine 1.70 Estimat Glomerular Filtration 40 Rate Random Glucose 104 Calcium Level 8.7 Magnesium Level 2.6 Total Bilirubin 0.4 Aspartate Amino Transf 26 (AST/SGOT) Alanine Aminotransferase 47 (ALT/SGPT) Alkaline Phosphatase 125 Total Protein 7.0 Albumin 2.4 Imaging Last Impressions Chest X-Ray 01/29/17 0600 Signed Impressions: Service Date/Time: Sunday, January 29, 2017 03:37 - CONCLUSION: No significant interval change of the bilateral pulmonary edema. Stable cardiomegaly. Rivas Keys MD Abdomen X-Ray 01/05/17 0000 Signed Impressions: Service Date/Time: Thursday, January 05, 2017 07:23 - CONCLUSION: Nasogastric tube across the GE junction with minimal gaseous distention. Aba Dick MD FACR Chest CT 01/04/17 0000 Signed Impressions: Service Date/Time: Wednesday, January 04, 2017 12:03 - CONCLUSION: 1. Consolidative changes with small bilateral pleural effusions in both bases. 2. Extensive coronary artery calcifications. Aba Dick MD FACR Renal Ultrasound 01/01/17 0000 Signed Impressions: Service Date/Time: Sunday, January 01, 2017 09:12 - CONCLUSION: Normal examination. Sushil Abdi Jr., MD Scrotum Ultrasound 12/28/16 1246 Signed Impressions: Service Date/Time: Wednesday, December 28, 2016 14:05 - CONCLUSION: 1. Marked thickening of the scrotal wall, up to 2.4 cm on the right. 2. Small complex left hydrocele. 3. Small complex cysts right testicle. Positive testicular blood flow. Nael Scott MD Abdomen/Pelvis CT 12/28/16 1237 Signed Impressions: Service Date/Time: Wednesday, December 28, 2016 14:52 - CONCLUSION: 1. 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 2. Mild bilateral inguinal adenopathy and marked scrotal wall thickening. 3. Fat-containing 5.7 cm umbilical hernia. 4. Atherosclerotic aorta with some displaced intimal calcifications but without significant aneurysm. No bowel obstruction. Mild ileus. Nael Scott MD Physical Exam HEENT: EOMI; on vent CHEST: Chest is clear to auscultation and percussion. CARDIAC: Regular rate and rhythm with no murmur gallop or rubs. ABDOMEN: Soft, obese, nontender; no hepatosplenomegaly; bowel sounds are present in all four quadrants. EXTREMITIES: No clubbing, cyanosis, or edema. SKIN: Normal; no rash; no jaundice. BUFFER COPPER: on vent. (Sophie Soto) Assessment and Plan Plan ASSESSMENT: - Dysphagia, FEN. Pt with multiple chronic medical problems (CAD, Hyperlipidemia, CHF, DM, HTN) now hospitalized for Becca gangrene, necrotizing fasciitis. following, s/p debridement and washout on 12/30 and then repeat debridement with washout with closure 12/31. He has required prolonged mechanical ventilation and he underwent tracheostomy placement (01/18). NGT with Glucerna 1.5 @ 55 mls/hr goal as recommended by [employer] [facility]. Per RN he has a son that is POA but she has tried repeatedly and has had no luck in contacting him for consent for PEG placement. PLAN: - Plan for EGD with PEG tube placement - Obtain consents - NPO after MN - Hold heparin after MN - [facility] recommends Glucerna 1.5 at 55cc/hr - On abx. - Supportive care - Further recommendations to follow based on results of above - PT seen and examined by Dr. Abernathy and myself and this note is written on his behalf (Sophie Soto) Physician Comments Patient seen and examined Agree with above Continue with current supportive care Monitor labs Plan for PEG placement once consent are obtained (Joey Abernathy MD) Sophie Soto Jan 29, 2017 16:58 Joey Abernathy MD Jan 29, 2017 22:11
[2017-01-29] MEDS: MELATONIN 5 MG TAB PO SCH (19:46)
[2017-01-29] MEDS: ATORVASTATIN 40 MG TAB PO SCH (19:47)
[2017-01-30] VITALS (15 sets, daily range): BP systolic 132–178; BP diastolic 66–120; PULSE 72–123; RESP 18–29; TEMP 98.6–100.2; O2SAT 90–99
[2017-01-30] MEDS: INSULIN NovoLIN REGULAR SUPPLEMENTAL SCALE SQ SCH ×4 (02:00→20:00)
[2017-01-30] MEDS: CHLORHEXIDINE GLUCONATE 2 % 1 PACK (2 CLOTHS) TOP SCH (04:00)
--- NOTE | 2017-01-30 04:27 | RADRPT ---
EXAM DATE/TIME: 01/30/2017 04:02 [facility] COMPARISON: CHEST SINGLE AP, January 29, 2017, 3:37. INDICATIONS : Respiratory disease. MEDICAL HISTORY : None. SURGICAL HISTORY : Pacemaker. ENCOUNTER: Initial ACUITY: 3 weeks PAIN SCORE: Non-responsive. LOCATION: Bilateral chest FINDINGS: The tracheostomy tube and NG tube remain in place. There Continues to be some pulmonary edema bilater ally. This is either about the same or very mildly improved. The heart size is enlarged but stable. T he bony structures are stable. No evidence of pneumothorax. CONCLUSION: Bilateral pulmonary edema which is either about the same or mildly improved. Otherwise, stable examin ation. Rivas Keys MD on January 30, 2017 at 4:24 Board Certified Radiologist. This report was verified electronically.
[2017-01-30 04:35] LABS: AUTOMATED NEUTROPHIL # 5.8 TH/MM3 (1.8-7.7); BASOPHIL % 0.6 % (0.0-2.0); EOSINOPHIL % 0.5 % (0.0-4.0); HEMATOCRIT 22.7 % (39.0-51.0); LYMPH % 18.3 % (9.0-44.0); LYMPHOCYTE # 1.4 TH/MM3 (1.0-4.8); MEAN CORPUSCULAR HEMOGLOBIN 28.7 PG (27.0-34.0); MEAN CORPUSCULAR HGB CONC 32.6 % (32.0-36.0); MONO % 7.2 % (0.0-8.0); NEUT % 73.4 % (16.0-70.0); PLATELET COUNT 239 TH/MM3 (150-450); RED BLOOD COUNT 2.58 MIL/MM3 (4.50-5.90); RED CELL DISTRIBUTION WIDTH 20.8 % (11.6-17.2); WHITE BLOOD COUNT 7.9 TH/MM3 (4.0-11.0)
[2017-01-30 04:48] LABS: HEMO FLAGS AUTO DIFF
[2017-01-30 05:00] LABS: ALT (GPT) 41 U/L (12-78); ANION GAP 8 MEQ/L (5-15); AST (GOT) 26 U/L (15-37); BICARBONATE 33.2 MEQ/L (21.0-32.0); BLOOD UREA NITROGEN 64 MG/DL (7-18); CHLORIDE 109 MEQ/L (98-107); GLOMERULAR FILTRATION RATE 40 ML/MIN (>89); MAGNESIUM 2.8 MG/DL (1.5-2.5); POTASSIUM 4.7 MEQ/L (3.5-5.1); SODIUM (NA) 150 MEQ/L (136-145)
[2017-01-30 05:01] LABS: ALKALINE PHOSPHATASE 112 U/L (45-117); TOTAL BILIRUBIN ADULT 0.4 MG/DL (0.2-1.0)
[2017-01-30] MEDS: FREE WATER NG SCH ×5 (06:00→23:50)
[2017-01-30] MEDS: hydrALAZINE HCL 25 MG TAB PO SCH ×3 (06:55→21:13)
[2017-01-30] MEDS: QUEtiapine FUMARATE 100 MG TAB PO SCH ×3 (06:55→21:13)
[2017-01-30] MEDS: ISOSORBIDE DINITRATE 10 MG TAB PO SCH ×3 (06:55→21:13)
[2017-01-30 07:23] LABS: BANDS 5 % (0-6); CORRECTED NUCLEATED RBC 1 /100 WBC (0-0); MYELOCYTES 1 % (0-0); NEUTROPHIL # MANUAL DIFF 6.8 TH/MM3 (1.8-7.7); POLYS (SEG NEUTROPHILS) 80 % (16-70); WBC DIFF SAMPLE 100
[2017-01-30 07:24] LABS: PLATELET ESTIMATE SMEAR NORMAL (NORMAL); PLATELET MORPHOLOGY NORMAL (NORMAL); SCAN/DIFF FINAL DIFF MANUAL
[2017-01-30 07:25] LABS: POLYCHROMASIA 2.4 % (0.0-1.9)
[2017-01-30] MEDS: CHLORHEXIDINE 0.12% (ORAL KIT) 15 ML CUP MT SCH ×2 (07:40→19:42)
[2017-01-30] MEDS: RESP: BUDESONIDE 0.5 MG/2 ML NEB NEB SCH ×2 (07:43→20:02)
[2017-01-30] MEDS: DOCUSATE SODIUM 100 MG/10 ML UDC G-TUBE SCH ×2 (07:58→19:43)
[2017-01-30] MEDS: SENNOSIDES SYRUP 8.8 MG/5 ML CUP PO SCH ×2 (07:58→19:43)
[2017-01-30] MEDS: FAMOTIDINE 20 MG TAB PO SCH ×2 (07:58→19:43)
[2017-01-30] MEDS: CARVEDILOL 12.5 MG TAB PO SCH ×2 (07:59→19:43)
[2017-01-30] MEDS: SODIUM CHLORIDE 0.9% FLUSH 10 ML FLUSH SCH ×2 (07:59→20:42)
[2017-01-30] MEDS: MODAFINIL 200 MG TAB PO SCH (07:59)
[2017-01-30] MEDS: ARTIFICIAL TEARS OPTH SOLN 15 ML BTL EACH EYE SCH ×3 (07:59→18:00)
[2017-01-30] MEDS: INSULIN DETEMIR 100 UNITS/ML VIAL SQ SCH ×2 (08:00→20:43)
--- NOTE | 2017-01-30 14:14 | HHI.CCPN ---
Subjective Remarks/Hospital Course 71-year-old male presents for evaluation of testicular swelling. Approximately 10 days ago he was started on Aldactone for his blood pressure which. He also noted that her sugars has been slightly elevated. Denies any fevers. He has been feeling generally weak as well. Denied abdominal pain nausea vomiting or diarrhea. He thought the scrotal swelling was from the Aldactone and came into the emergency department to be evaluated. 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 remains intubated overnight. off vasopressors. 12/30: Much more comfortable. Back to OR for washout today. Breathing without distress. STEFFEN improving. Patient has dilated cardiomyopathy with severe systolic heart failure and EF 25-30% by last ECHO 2013. May need low-dose inotrope during course of therapy. 12/30 1800 hrs: Seen after OR today. He has full neck veins and light wheezes with basilar crackles. His underlying LV dysfunction requires that we treat this aggressively with diuretics and subsequent electrolyte replacement. Will move back to [facility]. 12/31: Required rapid response for 2nd time in 12 hours. Will need intubation due to severe systolic heart failure and pulmonary edema. 01/01: Afebrile. Remains nothing by mouth for planned washout today. Decreased urine output noted. Hypertensive with sedation vacation. 01/02: Yesterday with washout and debridement without complication. Continues to be in A. fib intermittently rate controlled. Hemodynamically stable. One bowel movement. Will try spontaneous breathing trials today and attempt to extubate. If unsuccessful will initiate tube feeding. 01/03: Tmax 99.2. Episode of desaturation overnight recording FiO2 100%. Currently back to 50%. Chest x-ray essentially stable. Small left pleural effusion. Low lung volumes. Remains in a flutter rate controlled. Imminently bradycardic. 3 bowel movements on 01/02. Tolerating tube feeding. 01/04: FiO2 currently at 50%. We'll check CT chest. Possible need pleural effusions. Remains in a flutter rate control. Intermittently bradycardic. No bowel movement yesterday. Tube feeds currently off for possible extubation but tolerating previously. Afebrile 01/05: Remains on FiO2 of 50%. CT chest revealed small bilateral pleural effusions otherwise unremarkable. Noted is currently rate controlled. No bowel movement. Tube feeds at goal. Afebrile. Intermittently follows commands. 01/06: FiO2 40%. Self extubated yesterday. Lasted about 20 Mr. for requiring intubation. Was on 100 percent nonrebreather. Saturations are 90%. During intubation, Ambu bag malfunctioned. Patient was quickly intubated and was arousable moving all 4 extremities prior to re-sedation. We'll attempt sedation vacation again today. 01/07: Remains ventilator dependent, failed extubation yesterday. Unable to wean today, weak. 01/08: Tolerating CPAP trials but unable to extubate. 01/09: Plan transfer to LTAC. 01/10: Continued improvement in renal function. Contraction alkalosis with diuresis. Will require LTAC. 01/11: Will need to get a fair amount of excess water off. Consider gtt. 01/11: Great response to bumex gtt. 01/13: Continue diuresis. Replete electrolytes. Reduce vent rate. 01/14: Diuresed 10 liters net balance. Replace lytes. Correct HCO3 with diamox. Wean vent. 01/15: Despite aggressive diuresis and clearing of CXR he does not tolerate extended SBTs. He will need a tracheostomy if family wishes to pursue aggressive care. 01/16: Serratia in sputum, afebrile. WBC 5600. CXR benign. 01/17: Needs trach for custodial weaning. Need to find family to consent. 01/18: Family has consented. Still fails weaning trials. Will perform trach. 01/19: Underwent percutaneous tracheostomy on 01/18. Remains on mechanical ventilation. 01/20: Remains on propofol for agitation. On mechanical ventilation via tracheostomy. Tolerating tube feeds. 01/22: off propofol. much less agitated today, but still some delirium and still CAM +. CPAP trials today. 01/23: more agitated today. very CAM +. still failing CPAP trials for tachycardia and agitation. 01/24: much more improved today. follows commands. less delirious. 01/25: mentation continues to improve. still CAM -. follows commands. OOB to chair today. 01/26: continues to do well. mentation continues to clear. OOB to chair daily. still awaiting placement. still weaning from vent, but slow given deconditioned state. 01/27: Failed SBT due to tachycardia and tachypnea in am, tolerates CPAP with high PS. Following commands. Awaiting placement 01/28: Tachypneic and tachycardic on CPAP, intermittently agitated. Intermittent wheezing on exam. Denied placement by [employer] due to no PEG tube/or definitive feeding tube SUBJECTIVE 01/29: Calmer today, tolerating CPAP with PS 15. CXR shows unchanged pulm edema and LLL consolidation. BUN creat increased from 33/1.1 to 63/1.7 Lasix held. GI unable to get consent for PEG placement at this time 01/30: Resting comfortably on vent. Failed CPAP today. Follows commands. Consent obtained for PEG today. Creat 1.7, stable. UO adequate Objective Vital Signs Date Time Temp Pulse Resp B/P Pulse Ox O2 Delivery O2 Flow Rate FiO2 01/30/17 12:15 95 35 01/30/17 08:00 99.0 123 29 166/77 01/30/17 07:16 Mechanical Ventilator Intake and Output 01/29/17 01/29/17 01/30/17 08:00 16:00 00:00 Intake Total 159 ml 200 ml 551 ml Output Total 450 ml 850 ml 400 ml Balance -291 ml -650 ml 151 ml Result Diagram: 01/30/17 0335 01/30/17 0335 Imaging Last Impressions Chest X-Ray 01/06/17 0600 Signed Impressions: Service Date/Time: Friday, January 06, 2017 04:21 - CONCLUSION: Cardiomegaly with bilateral pleural effusions and bibasilar infiltrates. The radiographic pattern is most consistent with pulmonary edema. Sushil Abdi Jr., MD Abdomen X-Ray 01/05/17 0000 Signed Impressions: Service Date/Time: Thursday, January 05, 2017 07:23 - CONCLUSION: Nasogastric tube across the GE junction with minimal gaseous distention. Aba Dick MD FACR Chest CT 01/04/17 0000 Signed Impressions: Service Date/Time: Wednesday, January 04, 2017 12:03 - CONCLUSION: 1. Consolidative changes with small bilateral pleural effusions in both bases. 2. Extensive coronary artery calcifications. Aba Dick MD FACR Renal Ultrasound 01/01/17 0000 Signed Impressions: Service Date/Time: Sunday, January 01, 2017 09:12 - CONCLUSION: Normal examination. Sushil Abdi Jr., MD Scrotum Ultrasound 12/28/16 1246 Signed Impressions: Service Date/Time: Wednesday, December 28, 2016 14:05 - CONCLUSION: 1. Marked thickening of the scrotal wall, up to 2.4 cm on the right. 2. Small complex left hydrocele. 3. Small complex cysts right testicle. Positive testicular blood flow. Nael Scott MD Abdomen/Pelvis CT 12/28/16 1237 Signed Impressions: Service Date/Time: Wednesday, December 28, 2016 14:52 - CONCLUSION: 1. 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 2. Mild bilateral inguinal adenopathy and marked scrotal wall thickening. 3. Fat-containing 5.7 cm umbilical hernia. 4. Atherosclerotic aorta with some displaced intimal calcifications but without significant aneurysm. No bowel obstruction. Mild ileus. Nael Scott MD Objective Remarks GENERAL: 71-year-old male, on vent. Wide awake appears comfortable on vent SKIN: Warm and dry. HEAD: Normocephalic. EYES: Pupils are 2 mm bilaterally and reactive. NECK: Tracheostomy in place, no bleeding CARDIOVASCULAR: Irreg Irreg Intermittently paced. RESPIRATORY: unlabored. secretions improved. on PRVC/AC GASTROINTESTINAL: Abdomen soft, non-tender, obese. MUSCULOSKELETAL: Currently with trace to 1+ bilateral lower extremity pitting edema. Foot pulses palpable. NEURO: Moves all 4 extremities spontaneously. Follows commands. 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 Posttraumatic stress disorder Depression/anxiety History of peripheral neuropathy Acute agitated delirium- improved. Seroquel 100mg po q8hr. Haldol 5mg iv q4h prn for breakthrough agitation Melatonin 5mg po qhs for sleep Provigil 200mg po daily. Tizanidine 2mg po q12h. Not on home medications for underlying psychiatric diagnosis. CV: Congestive heart failure/systolic ejection fraction 25% 2013 Limited echo EF 35-40% with akinesis apical myocardium History of CABG 4 Hypertension Dyslipidemia History of single-chamber defibrillator 08/19 due to positive EPS study Holding valsartan 320 mg by mouth daily for hypertension due to acute kidney injury Continue Lipitor 40 mg by mouth daily/home medication for dyslipidemia On Coreg 25 mg q12h. Continue hydralazine 25mg three times a day/Isordil 10 every 8 as adjuvant while creatinine elevated Milrinone was discontinued 01/01 due to dysrhythmias Echo 2013 - EF 25-30%. No regional wall motion abnormality. Left atrium dilated. Limited echo 2016 reveals EF 35-40%. Akinesis apical myocardium. Left atrium mild dilatated. Mild MRTushar Rob cardiology seeing for underlying atrial flutter. Likely ischemic workup Lasix 40 mg daily. Continue spironolactone 12.5 mg daily- Holding both 01/29 due to worsening ARF, creat 1.7 Free water replacement 200 ml q6 Resp: Acute hypoxemic respiratory failure Ongoing tobaccoism Daily SBTs. working on pulmonary strengthening with CPAP 28/04 as tolerated, with high PS Ventilator bundle. Status post tracheostomy 01/18 Bronchodilator therapy every 4 hours and as needed Secretions improving. CXR in am. Up to stretcher chair as tolerated Unable to wean off vent GI: Gastroesophageal reflux disease 5.7 cm umbilical hernia Glucerna 1.5 goal 55 cc an hour Pepcid 10 mg twice a day for GI prophylaxis. On Prilosec 20 mg by mouth daily at home Colace/senna twice a day for bowel regimen Umbilical hernia seen on CT is reducible. Levemir bid GI consulted for PEG tube placement, most likely today : Becca's gangrene BPH Postop for Becca's gangrene/ necrotizing fasciitis posterior scrotum, perineum and right perirectal tissue Postop washout and debridement for his gangrene Postoperative washout and debridement. 12/28 revealed gas in his perineum/scrotum and the right gluteal cleft. Followed by urology/Dr. Sushil Stein: Diabetes mellitus Gout Holding Tanzeum 50 mg subcutaneous weekly. Holding allopurinol 200 mg by mouth daily for gout Sliding scale insulin with Accu-Cheks every 6 hours to maintain euglycemia. Levemir 5 BID Renal: Acute kidney injury Initial CT revealed no signs of hydronephrosis. Urine eosinophils negative. Renal ultrasound revealed no hydronephrosis No indications for hemodialysis at this point. Creat slightly increased and lasix aldactone held Heme: Normocytic anemia Leukocytosis Daily CBC. Monitor trends Transfused 2 units PRBCs during this hospital stay. No current indication for transfusion of blood at this time. ID: Becca's gangrene Group A beta strep UTI Unasyn 1.5 IV every 6 hours stopped 01/16 (switched to Rocephin per ID) Clindamycin 300 mg by mouth every 6 hours completed 01/02 Rocephin 2gm IV daily 01/16, anticipated stop date 01/29, now completed Pertinent cultures Sputum 01/14 - Serratia Sputum - 12/31 -no growth Abdomen abscess - 12/28 - Escherichia coli, E faecalis and coag negative staph Abdomen abscess - 12/28 - acid-fast bacilli/fungus negative Blood cultures 2 - 12/28 - no growth Urine culture - 12/28 -group A beta strep Infectious disease signed off with anticipated abx stop date 01/29 FEN: Hyper-magnesium Hypokalemia - resolved Hypernatremia Replace electrolytes as clinically indicated MSK: PT/OT evaluate and treat Access - Right IJ CVL day placed 12/31 -> d/c - Left radial arterial line day placed 12/31 -> d/c -Left IJ CVL d/c 01/21 Prophylaxis - GI - Pepcid - DVT - SCD/heparin subcutaneous Overall impression: Remains very weak, restricted by chronic poor cardiac function. s/p tracheostomy. Son reasserts full code status for patient. Insurance requires 21 days on vent and 7 days post-trach in order to approve LTAC. Refused LTAC by [employer] after [id number] 01/28 due to lack of PEG tube, hopefully will get PEG today Enma Hannah MD Jan 30, 2017 14:14
[2017-01-30] MEDS: LABETALOL HCL 100 MG/20 ML VIAL IV PUSH PRN (15:17)
[2017-01-30] MEDS: hydrALAZINE HCL 20 MG/ML VIAL IV PUSH PRN (17:01)
[2017-01-30] MEDS: ATORVASTATIN 40 MG TAB PO SCH (19:43)
[2017-01-30] MEDS: MELATONIN 5 MG TAB PO SCH (19:43)
[2017-01-30] MEDS: HALOPERIDOL LACTATE 5 MG/ML AMP IV PRN ×2 (19:44→23:50)
[2017-01-30] MEDS: HYDROmorphone HCL PF 1 MG/ML VIAL IV PUSH PRN (21:13)
--- NOTE | 2017-01-30 22:28 | HHI.GIFU ---
Subjective Remarks Comfortable in bed no new complaints still needing CPAP Objective Vitals I&O Vital Signs Date Time Temp Pulse Resp B/P Pulse Ox O2 Delivery O2 Flow Rate FiO2 01/30/17 20:08 94 40 01/30/17 18:00 40 01/30/17 16:00 40 01/30/17 16:00 99.3 116 25 178/120 96 01/30/17 15:45 97 40 01/30/17 14:55 40 01/30/17 14:00 40 01/30/17 12:15 95 35 01/30/17 12:00 35 01/30/17 12:00 99.2 72 18 147/66 93 01/30/17 08:00 99.0 123 29 166/77 90 01/30/17 08:00 35 01/30/17 07:57 96 35 01/30/17 07:46 35 01/30/17 07:46 96 35 01/30/17 07:16 96 Mechanical Ventilator 35 01/30/17 04:24 97 35 01/30/17 04:00 40 01/30/17 04:00 98.6 76 18 145/69 99 01/30/17 00:59 94 40 01/30/17 00:00 99.5 98 18 132/70 98 01/30/17 00:00 40 I/O 01/29/17 01/29/17 01/29/17 01/30/17 01/30/17 01/30/17 07:00 15:00 23:00 07:00 15:00 23:00 Intake Total 159 ml 200 ml 551 ml 275 ml 258 ml Output Total 450 ml 850 ml 400 ml 325 ml 350 ml Balance -291 ml -650 ml 151 ml -50 ml -92 ml IV Total 39 ml 0 ml 155 ml 75 ml 58 ml Tube Feeding 0 ml 196 ml 0 ml Other 120 ml 200 ml 200 ml 200 ml 200 ml Output Urine Total 350 ml 850 ml 325 ml 300 ml 350 ml Stool Total 100 ml 0 ml 75 ml 25 ml 0 ml Laboratory Laboratory Tests Test 01/30/17 03:35 White Blood Count 7.9 Red Blood Count 2.58 Hemoglobin 7.4 Hematocrit 22.7 Mean Corpuscular Volume 88.0 Mean Corpuscular Hemoglobin 28.7 Mean Corpuscular Hemoglobin 32.6 Concent Red Cell Distribution Width 20.8 Platelet Count 239 Mean Platelet Volume 8.7 Neutrophils (%) (Auto) 73.4 Lymphocytes (%) (Auto) 18.3 Monocytes (%) (Auto) 7.2 Eosinophils (%) (Auto) 0.5 Basophils (%) (Auto) 0.6 Neutrophils # (Auto) 5.8 Lymphocytes # (Auto) 1.4 Monocytes # (Auto) 0.6 Eosinophils # (Auto) 0.0 Basophils # (Auto) 0.0 CBC Comment AUTO DIFF Differential Total Cells 100 Counted Neutrophils % (Manual) 80 Band Neutrophils % 5 Lymphocytes % 10 Monocytes % 4 Neutrophils # (Manual) 6.8 Myelocytes 1 Nucleated Red Blood Cells 1 Differential Comment FINAL DIFF MANUAL Platelet Estimate NORMAL Platelet Morphology Comment NORMAL Polychromasia 2.4 Sodium Level 150 Potassium Level 4.7 Chloride Level 109 Carbon Dioxide Level 33.2 Anion Gap 8 Blood Urea Nitrogen 64 Creatinine 1.71 Estimat Glomerular Filtration 40 Rate Random Glucose 127 Calcium Level 8.6 Magnesium Level 2.8 Total Bilirubin 0.4 Aspartate Amino Transf 26 (AST/SGOT) Alanine Aminotransferase 41 (ALT/SGPT) Alkaline Phosphatase 112 Total Protein 6.5 Albumin 2.2 Physical Exam HEENT: EOMI; on vent CHEST: Chest is clear to auscultation and percussion. CARDIAC: Regular rate and rhythm with no murmur gallop or rubs. ABDOMEN: Soft, obese, nontender; no hepatosplenomegaly; bowel sounds are present in all four quadrants. EXTREMITIES: No clubbing, cyanosis, or edema. SKIN: Normal; no rash; no jaundice. SHIFT ENGINEER: on vent. Assessment and Plan Plan ASSESSMENT: - Dysphagia, FEN. Pt with multiple chronic medical problems (CAD, Hyperlipidemia, CHF, DM, HTN) now hospitalized for Becca gangrene, necrotizing fasciitis. following, s/p debridement and washout on 12/30 and then repeat debridement with washout with closure 12/31. He has required prolonged mechanical ventilation and he underwent tracheostomy placement (01/18). NGT with Glucerna 1.5 @ 55 mls/hr goal as recommended by Ch[employer] Operator. Per RN he has a son that is POA but she has tried repeatedly and has had no luck in contacting him for consent for PEG placement. PLAN: - Plan for EGD with PEG tube placement tomorrow - Obtain consents - NPO after MN - Hold heparin after MN - Chute Operator recommends Glucerna 1.5 at 55cc/hr - On abx. - Supportive care - Further recommendations to follow based on results of above Joey Abernathy MD Jan 30, 2017 22:28
[2017-01-31] VITALS (18 sets, daily range): BP systolic 128–198; BP diastolic 66–98; PULSE 69–116; RESP 18–28; TEMP 98.2–100; O2SAT 94–100
[2017-01-31] MEDS: INSULIN NovoLIN REGULAR SUPPLEMENTAL SCALE SQ SCH ×4 (02:00→20:00)
[2017-01-31] MEDS: CHLORHEXIDINE GLUCONATE 2 % 1 PACK (2 CLOTHS) TOP SCH (02:21)
[2017-01-31] MEDS: HYDROmorphone HCL PF 1 MG/ML VIAL IV PUSH PRN (05:27)
[2017-01-31] MEDS: FREE WATER NG SCH ×3 (05:27→18:53)
[2017-01-31] MEDS: QUEtiapine FUMARATE 100 MG TAB PO SCH ×3 (05:27→20:17)
[2017-01-31] MEDS: hydrALAZINE HCL 25 MG TAB PO SCH ×3 (05:27→20:18)
[2017-01-31] MEDS: ISOSORBIDE DINITRATE 10 MG TAB PO SCH ×3 (05:27→20:17)
[2017-01-31] MEDS: RESP: BUDESONIDE 0.5 MG/2 ML NEB NEB SCH ×2 (08:05→19:55)
[2017-01-31] MEDS: SENNOSIDES SYRUP 8.8 MG/5 ML CUP PO SCH ×2 (09:00→20:17)
[2017-01-31] MEDS: DOCUSATE SODIUM 100 MG/10 ML UDC G-TUBE SCH ×2 (09:00→20:16)
[2017-01-31] MEDS: ARTIFICIAL TEARS OPTH SOLN 15 ML BTL EACH EYE SCH ×3 (09:00→18:52)
[2017-01-31] MEDS ORDERED: MIDAZOLAM HCL 5 MG/ML VIAL (1 ML) ONE (09:39)
[2017-01-31] MEDS ORDERED: ceFAZolin 2 GM/50 ML BAG IV ONE (09:47)
[2017-01-31] MEDS ORDERED: ceFAZolin 2 GM PREMIX 50 ML IV SCH (10:00)
--- NOTE | 2017-01-31 10:16 | PD.PROCEDR ---
GI Procedure REFERRING PHYSICIAN Dr. Carlos PROCEDURE PERFORMED EGD with PEG INDICATION FOR PROCEDURE Dysphagia respiratory failure PROCEDURE: The procedure, risks and benefits were discussed with Mr. Mandel and informed consent was obtained. Anesthesia sedated him with Diprivan. He was placed in the left lateral decubitus position. EGD: The Pentax videoscope was introduced through the oropharynx and advanced to the second portion of the duodenum under direct visualization. Retroflexion was performed in the stomach. FINDINGS: The esophagus this was normal The stomach this was normal The duodenum this was normal Following the evaluation of the stomach and the duodenum the stomach was insufflated with air and the area of PEG placement was identified through indentation and transillumination the area was prepped and draped in usual fashion 5 cc of lidocaine were injected locally a small incision was made then an Angiocath was passed into the stomach through which a guidewire was passed this was retrieved with the scope into that a PEG tube was attached and pulled into place and thereafter secured in usual fashion The patient tolerated procedure well and there are no immediate complications ESTIMATED BLOOD LOSS: None SPECIMENS REMOVED: None COMPLICATIONS: None IMPRESSION: Normal EGD Successful PEG placement PLAN: 1. May use PEG tube for medications today 2. May start feeding tomorrow 3. May obtain nutritional consult for tube feeding 4. Flush tube with 50 cc of water every 4-6 hours 5. Always flush tube after feedings 6. Apply abdominal binder as necessary 7. Clamp G-tube after use and flush. Joey Abernathy MD Jan 31, 2017 10:16
[2017-01-31] MEDS ORDERED: MIDAZOLAM HCL 5 MG/ML VIAL (1 ML) IV ONE (11:00)
[2017-01-31] MEDS: CHLORHEXIDINE 0.12% (ORAL KIT) 15 ML CUP MT SCH ×2 (12:14→20:16)
[2017-01-31] MEDS: SODIUM CHLORIDE 0.9% FLUSH 10 ML FLUSH SCH ×2 (12:15→20:16)
[2017-01-31] MEDS: MODAFINIL 200 MG TAB PO SCH (12:31)
[2017-01-31] MEDS: FAMOTIDINE 20 MG TAB PO SCH ×2 (12:31→20:17)
[2017-01-31] MEDS: INSULIN DETEMIR 100 UNITS/ML VIAL SQ SCH ×2 (12:32→20:18)
[2017-01-31] MEDS: CARVEDILOL 12.5 MG TAB PO SCH ×2 (12:32→20:17)
--- NOTE | 2017-01-31 15:26 | HHI.CCPN ---
Subjective Remarks/Hospital Course 71-year-old male presents for evaluation of testicular swelling. Approximately 10 days ago he was started on Aldactone for his blood pressure which. He also noted that her sugars has been slightly elevated. Denies any fevers. He has been feeling generally weak as well. Denied abdominal pain nausea vomiting or diarrhea. He thought the scrotal swelling was from the Aldactone and came into the emergency department to be evaluated. 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 remains intubated overnight. off vasopressors. 12/30: Much more comfortable. Back to OR for washout today. Breathing without distress. STEFFEN improving. Patient has dilated cardiomyopathy with severe systolic heart failure and EF 25-30% by last ECHO 2013. May need low-dose inotrope during course of therapy. 12/30 1800 hrs: Seen after OR today. He has full neck veins and light wheezes with basilar crackles. His underlying LV dysfunction requires that we treat this aggressively with diuretics and subsequent electrolyte replacement. Will move back to [facility]. 12/31: Required rapid response for 2nd time in 12 hours. Will need intubation due to severe systolic heart failure and pulmonary edema. 01/01: Afebrile. Remains nothing by mouth for planned washout today. Decreased urine output noted. Hypertensive with sedation vacation. 01/02: Yesterday with washout and debridement without complication. Continues to be in A. fib intermittently rate controlled. Hemodynamically stable. One bowel movement. Will try spontaneous breathing trials today and attempt to extubate. If unsuccessful will initiate tube feeding. 01/03: Tmax 99.2. Episode of desaturation overnight recording FiO2 100%. Currently back to 50%. Chest x-ray essentially stable. Small left pleural effusion. Low lung volumes. Remains in a flutter rate controlled. Imminently bradycardic. 3 bowel movements on 01/02. Tolerating tube feeding. 01/04: FiO2 currently at 50%. We'll check CT chest. Possible need pleural effusions. Remains in a flutter rate control. Intermittently bradycardic. No bowel movement yesterday. Tube feeds currently off for possible extubation but tolerating previously. Afebrile 01/05: Remains on FiO2 of 50%. CT chest revealed small bilateral pleural effusions otherwise unremarkable. Noted is currently rate controlled. No bowel movement. Tube feeds at goal. Afebrile. Intermittently follows commands. 01/06: FiO2 40%. Self extubated yesterday. Lasted about 20 Mr. for requiring intubation. Was on 100 percent nonrebreather. Saturations are 90%. During intubation, Ambu bag malfunctioned. Patient was quickly intubated and was arousable moving all 4 extremities prior to re-sedation. We'll attempt sedation vacation again today. 01/07: Remains ventilator dependent, failed extubation yesterday. Unable to wean today, weak. 01/08: Tolerating CPAP trials but unable to extubate. 01/09: Plan transfer to LTAC. 01/10: Continued improvement in renal function. Contraction alkalosis with diuresis. Will require LTAC. 01/11: Will need to get a fair amount of excess water off. Consider gtt. 01/11: Great response to bumex gtt. 01/13: Continue diuresis. Replete electrolytes. Reduce vent rate. 01/14: Diuresed 10 liters net balance. Replace lytes. Correct HCO3 with diamox. Wean vent. 01/15: Despite aggressive diuresis and clearing of CXR he does not tolerate extended SBTs. He will need a tracheostomy if family wishes to pursue aggressive care. 01/16: Serratia in sputum, afebrile. WBC 5600. CXR benign. 01/17: Needs trach for correction weaning. Need to find family to consent. 01/18: Family has consented. Still fails weaning trials. Will perform trach. 01/19: Underwent percutaneous tracheostomy on 01/18. Remains on mechanical ventilation. 01/20: Remains on propofol for agitation. On mechanical ventilation via tracheostomy. Tolerating tube feeds. 01/22: off propofol. much less agitated today, but still some delirium and still CAM +. CPAP trials today. 01/23: more agitated today. very CAM +. still failing CPAP trials for tachycardia and agitation. 01/24: much more improved today. follows commands. less delirious. 01/25: mentation continues to improve. still CAM -. follows commands. OOB to chair today. 01/26: continues to do well. mentation continues to clear. OOB to chair daily. still awaiting placement. still weaning from vent, but slow given deconditioned state. 01/27: Failed SBT due to tachycardia and tachypnea in am, tolerates CPAP with high PS. Following commands. Awaiting placement 01/28: Tachypneic and tachycardic on CPAP, intermittently agitated. Intermittent wheezing on exam. Denied placement by [employer] due to no PEG tube/or definitive feeding tube 01/29: Calmer today, tolerating CPAP with PS 15. CXR shows unchanged pulm edema and LLL consolidation. BUN creat increased from 33/1.1 to 63/1.7 Lasix held. GI unable to get consent for PEG placement at this time 01/30: Resting comfortably on vent. Failed CPAP today. Follows commands. Consent obtained for PEG today. Creat 1.7, stable. UO adequate SUBJECTIVE 01/31/17: Status post PEG tube placement. Sedated from procedural anesthesia. Tolerating CPAP. UO 1.2 L in 24 hours Objective Vital Signs Date Time Temp Pulse Resp B/P Pulse Ox O2 Delivery O2 Flow Rate FiO2 01/31/17 14:00 78 01/31/17 12:17 99 40 01/31/17 12:00 98.2 18 159/76 01/31/17 07:00 Mechanical Ventilator Intake and Output 01/30/17 01/30/17 01/31/17 08:00 16:00 00:00 Intake Total 275 ml 258 ml 300 ml Output Total 325 ml 350 ml 480 ml Balance -50 ml -92 ml -180 ml Result Diagram: 01/30/17 0335 01/30/17 0335 Imaging Last Impressions Chest X-Ray 01/06/17 0600 Signed Impressions: Service Date/Time: Friday, January 06, 2017 04:21 - CONCLUSION: Cardiomegaly with bilateral pleural effusions and bibasilar infiltrates. The radiographic pattern is most consistent with pulmonary edema. Sushil Abdi Jr., MD Abdomen X-Ray 01/05/17 0000 Signed Impressions: Service Date/Time: Thursday, January 05, 2017 07:23 - CONCLUSION: Nasogastric tube across the GE junction with minimal gaseous distention. Aba Dick MD FACR Chest CT 01/04/17 0000 Signed Impressions: Service Date/Time: Wednesday, January 04, 2017 12:03 - CONCLUSION: 1. Consolidative changes with small bilateral pleural effusions in both bases. 2. Extensive coronary artery calcifications. Aba Dick MD FACR Renal Ultrasound 01/01/17 0000 Signed Impressions: Service Date/Time: Sunday, January 01, 2017 09:12 - CONCLUSION: Normal examination. Sushil Abdi Jr., MD Scrotum Ultrasound 12/28/16 1246 Signed Impressions: Service Date/Time: Wednesday, December 28, 2016 14:05 - CONCLUSION: 1. Marked thickening of the scrotal wall, up to 2.4 cm on the right. 2. Small complex left hydrocele. 3. Small complex cysts right testicle. Positive testicular blood flow. Nael Scott MD Abdomen/Pelvis CT 12/28/16 1237 Signed Impressions: Service Date/Time: Wednesday, December 28, 2016 14:52 - CONCLUSION: 1. 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 2. Mild bilateral inguinal adenopathy and marked scrotal wall thickening. 3. Fat-containing 5.7 cm umbilical hernia. 4. Atherosclerotic aorta with some displaced intimal calcifications but without significant aneurysm. No bowel obstruction. Mild ileus. Nael Scott MD Objective Remarks GENERAL: 71-year-old male, on vent. Wide awake appears comfortable on vent SKIN: Warm and dry. HEAD: Normocephalic. EYES: Pupils are 2 mm bilaterally and reactive. NECK: Tracheostomy in place, no bleeding CARDIOVASCULAR: Irreg Irreg Intermittently paced. RESPIRATORY: unlabored. secretions improved. on CPAP/PS GASTROINTESTINAL: Abdomen soft, non-tender, obese. MUSCULOSKELETAL: Currently with trace to 1+ bilateral lower extremity pitting edema. Foot pulses palpable. NEURO: Moves all 4 extremities spontaneously. Follows commands. 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 Posttraumatic stress disorder Depression/anxiety History of peripheral neuropathy Acute agitated delirium- improved. Seroquel 100mg po q8hr. Haldol 5mg iv q4h prn for breakthrough agitation Melatonin 5mg po qhs for sleep Provigil 200mg po daily. Tizanidine 2mg po q12h. Not on home medications for underlying psychiatric diagnosis. Current regimen will be continued as patient is calmer and cooperative on this regimen CV: Congestive heart failure/systolic ejection fraction 25% 2013 Limited echo EF 35-40% with akinesis apical myocardium History of CABG 4 Hypertension Dyslipidemia History of single-chamber defibrillator 08/19 due to positive EPS study Holding valsartan 320 mg by mouth daily for hypertension due to acute kidney injury Continue Lipitor 40 mg by mouth daily/home medication for dyslipidemia On Coreg 25 mg q12h. Continue hydralazine 25mg three times a day/Isordil 10 every 8 as adjuvant while creatinine elevated Milrinone was discontinued 01/01 due to dysrhythmias Echo 2013 - EF 25-30%. No RWMA. Left atrium dilated. Limited echo 2016 reveals EF 35-40%. Akinesis apical myocardium. Left atrium mild dilatated. Mild MR. Dr. Rob cardiology seeing for underlying atrial flutter. Likely ischemic workup Lasix 40 mg daily. Continue spironolactone 12.5 mg daily- Holding both 01/29 due to worsening ARF, creat 1.7 Free water replacement 200 ml q6 Resp: Acute hypoxemic respiratory failure Ongoing tobaccoism Daily SBTs. working on pulmonary strengthening with CPAP 28/04 as tolerated, with high PS Ventilator bundle. Status post tracheostomy 01/18 Bronchodilator therapy every 4 hours and as needed Secretions improving. CXR in am. Up to stretcher chair as tolerated Unable to wean off vent, need LTAC GI: Gastroesophageal reflux disease 5.7 cm umbilical hernia Glucerna 1.5 goal 55 cc an hour Pepcid 10 mg twice a day for GI prophylaxis. On Prilosec 20 mg by mouth daily at home Colace/senna twice a day for bowel regimen Umbilical hernia seen on CT is reducible. 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 12/28 revealed gas in his perineum/scrotum and the right gluteal cleft. Followed by urology/Dr. Sushil Stein: Diabetes mellitus Gout Sliding scale insulin with Accu-Cheks every 6 hours to maintain euglycemia. Levemir 5 BID Holding Tanzeum 50 mg subcutaneous weekly. Holding allopurinol 200 mg by mouth daily for gout Renal: Acute kidney injury Initial CT revealed no signs of hydronephrosis. Urine eosinophils negative. Renal ultrasound revealed no hydronephrosis No indications for hemodialysis at this point. Creat slightly increased and Lasix Aldactone held Heme: Normocytic anemia Leukocytosis Daily CBC. Monitor trends Transfused 2 units PRBCs during this hospital stay. No current indication for transfusion of blood at this time. ID: Becca's gangrene Group A beta strep UTI Unasyn 1.5 IV every 6 hours stopped 01/16 (switched to Rocephin per ID) Clindamycin 300 mg by mouth every 6 hours completed 01/02 Rocephin 2gm IV daily 01/16, anticipated stop date 01/29, now completed Pertinent cultures Sputum 01/14 - Serratia Sputum - 12/31 -no growth Abdomen abscess - 12/28 - Escherichia coli, E faecalis and coag negative staph Abdomen abscess - 12/28 - acid-fast bacilli/fungus negative Blood cultures 2 - 12/28 - no growth Urine culture - 12/28 -group A beta strep Infectious disease signed off abx stopped date 01/29 FEN: Hyper-magnesium Hypokalemia - resolved Hypernatremia Replace electrolytes as clinically indicated MSK: PT/OT evaluate and treat Access - Right IJ CVL day placed 12/31 -> d/c - Left radial arterial line day placed 12/31 -> d/c - Left IJ CVL d/c 01/21 Prophylaxis - GI - Pepcid - DVT - SCD/heparin subcutaneous Overall impression: Remains very weak, restricted by chronic poor cardiac function. s/p tracheostomy. Son reasserts full code status for patient. Insurance requires 21 days on vent and 7 days post-trach, 4 days post PEG in order to approve LTAC. Hopefully transfer on Friday Level 2 Enma Hannah MD Jan 31, 2017 15:25
[2017-01-31] MEDS: ATORVASTATIN 40 MG TAB PO SCH (20:17)
[2017-01-31] MEDS: HALOPERIDOL LACTATE 5 MG/ML AMP IV PRN (20:17)
[2017-01-31] MEDS: MELATONIN 5 MG TAB PO SCH (20:18)
[2017-02-01] VITALS (18 sets, daily range): BP systolic 137–192; BP diastolic 62–91; PULSE 66–97; RESP 14–24; TEMP 98.2–99.1; O2SAT 92–100
[2017-02-01] MEDS: HALOPERIDOL LACTATE 5 MG/ML AMP IV PRN (00:02)
[2017-02-01] MEDS: INSULIN NovoLIN REGULAR SUPPLEMENTAL SCALE SQ SCH ×4 (02:00→20:00)
[2017-02-01] MEDS: CHLORHEXIDINE GLUCONATE 2 % 1 PACK (2 CLOTHS) TOP SCH (02:08)
[2017-02-01] MEDS: ISOSORBIDE DINITRATE 10 MG TAB PO SCH ×3 (04:24→22:07)
[2017-02-01] MEDS: QUEtiapine FUMARATE 100 MG TAB PO SCH ×3 (04:24→22:08)
[2017-02-01] MEDS: hydrALAZINE HCL 25 MG TAB PO SCH ×3 (04:24→21:22)
[2017-02-01] MEDS: FREE WATER NG SCH ×5 (04:24→23:55)
[2017-02-01 05:10] LABS: AUTOMATED NEUTROPHIL # 4.8 TH/MM3 (1.8-7.7); BASOPHIL % 0.5 % (0.0-2.0); EOSINOPHIL # 0.1 TH/MM3 (0-0.4); EOSINOPHIL % 1.7 % (0.0-4.0); HEMATOCRIT 23.5 % (39.0-51.0); HEMO FLAGS DIFF FINAL; LYMPH % 20.1 % (9.0-44.0); LYMPHOCYTE # 1.4 TH/MM3 (1.0-4.8); MEAN CELL VOLUME 89.6 FL (80.0-100.0); MEAN CORPUSCULAR HEMOGLOBIN 28.7 PG (27.0-34.0); MONO % 9.3 % (0.0-8.0); NEUT % 68.4 % (16.0-70.0); PLATELET COUNT 238 TH/MM3 (150-450); RED BLOOD COUNT 2.63 MIL/MM3 (4.50-5.90); RED CELL DISTRIBUTION WIDTH 22.4 % (11.6-17.2)
[2017-02-01 05:37] LABS: ALKALINE PHOSPHATASE 165 U/L (45-117); ALT (GPT) 27 U/L (12-78); ANION GAP 6 MEQ/L (5-15); AST (GOT) 20 U/L (15-37); BICARBONATE 32.8 MEQ/L (21.0-32.0); BLOOD UREA NITROGEN 46 MG/DL (7-18); CHLORIDE 108 MEQ/L (98-107); GLOMERULAR FILTRATION RATE 60 ML/MIN (>89); MAGNESIUM 2.9 MG/DL (1.5-2.5); POTASSIUM 4.1 MEQ/L (3.5-5.1); SODIUM (NA) 147 MEQ/L (136-145); TOTAL BILIRUBIN ADULT 0.4 MG/DL (0.2-1.0)
--- NOTE | 2017-02-01 06:26 | RADRPT ---
EXAM DATE/TIME: 02/01/2017 04:11 [place] COMPARISON: No previous studies available for comparison. INDICATIONS : Shortness of breath, possible pulmonary disease. MEDICAL HISTORY : None. SURGICAL HISTORY : Pacemaker. ENCOUNTER: Subsequent ACUITY: 3 weeks PAIN SCORE: Non-responsive. LOCATION: Bilateral chest FINDINGS: Mild left greater than right basilar consolidation and small pleural effusions are again noted, not s ignificantly changed. No pneumothorax. Mild cardiomegaly is stable. Patient has had previous median sternotomy. Trach collar again noted, appears normally positioned. Ca rdiac pacer are again seen. CONCLUSION: No significant change small, left greater than right pleural effusions and basilar atelectasis and mi ld cardiomegaly. Camden Neri MD on February 01, 2017 at 6:24 Board Certified Radiologist. This report was verified electronically.
[2017-02-01] MEDS: CHLORHEXIDINE 0.12% (ORAL KIT) 15 ML CUP MT SCH ×2 (08:29→20:00)
[2017-02-01] MEDS: INSULIN DETEMIR 100 UNITS/ML VIAL SQ SCH ×2 (09:00→22:08)
[2017-02-01] MEDS: RESP: BUDESONIDE 0.5 MG/2 ML NEB NEB SCH ×2 (09:45→21:27)
[2017-02-01] MEDS: SODIUM CHLORIDE 0.9% FLUSH 10 ML FLUSH SCH ×2 (10:07→21:00)
[2017-02-01] MEDS: DOCUSATE SODIUM 100 MG/10 ML UDC G-TUBE SCH ×2 (10:07→21:22)
[2017-02-01] MEDS: SENNOSIDES SYRUP 8.8 MG/5 ML CUP PO SCH ×2 (10:07→22:08)
[2017-02-01] MEDS: ARTIFICIAL TEARS OPTH SOLN 15 ML BTL EACH EYE SCH ×3 (10:07→17:41)
[2017-02-01] MEDS: CARVEDILOL 12.5 MG TAB PO SCH ×2 (10:07→21:22)
[2017-02-01] MEDS: MODAFINIL 200 MG TAB PO SCH (10:08)
[2017-02-01] MEDS: FAMOTIDINE 20 MG TAB PO SCH ×2 (10:10→21:22)
--- NOTE | 2017-02-01 14:58 | HHI.CCPN ---
Subjective Remarks/Hospital Course 71-year-old male presents for evaluation of testicular swelling. Approximately 10 days ago he was started on Aldactone for his blood pressure which. He also noted that her sugars has been slightly elevated. Denies any fevers. He has been feeling generally weak as well. Denied abdominal pain nausea vomiting or diarrhea. He thought the scrotal swelling was from the Aldactone and came into the emergency department to be evaluated. 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 remains intubated overnight. off vasopressors. 12/30: Much more comfortable. Back to OR for washout today. Breathing without distress. STEFFEN improving. Patient has dilated cardiomyopathy with severe systolic heart failure and EF 25-30% by last ECHO 2013. May need low-dose inotrope during course of therapy. 12/30 1800 hrs: Seen after OR today. He has full neck veins and light wheezes with basilar crackles. His underlying LV dysfunction requires that we treat this aggressively with diuretics and subsequent electrolyte replacement. Will move back to [facility]. 12/31: Required rapid response for 2nd time in 12 hours. Will need intubation due to severe systolic heart failure and pulmonary edema. 01/01: Afebrile. Remains nothing by mouth for planned washout today. Decreased urine output noted. Hypertensive with sedation vacation. 01/02: Yesterday with washout and debridement without complication. Continues to be in A. fib intermittently rate controlled. Hemodynamically stable. One bowel movement. Will try spontaneous breathing trials today and attempt to extubate. If unsuccessful will initiate tube feeding. 01/03: Tmax 99.2. Episode of desaturation overnight recording FiO2 100%. Currently back to 50%. Chest x-ray essentially stable. Small left pleural effusion. Low lung volumes. Remains in a flutter rate controlled. Imminently bradycardic. 3 bowel movements on 01/02. Tolerating tube feeding. 01/04: FiO2 currently at 50%. We'll check CT chest. Possible need pleural effusions. Remains in a flutter rate control. Intermittently bradycardic. No bowel movement yesterday. Tube feeds currently off for possible extubation but tolerating previously. Afebrile 01/05: Remains on FiO2 of 50%. CT chest revealed small bilateral pleural effusions otherwise unremarkable. Noted is currently rate controlled. No bowel movement. Tube feeds at goal. Afebrile. Intermittently follows commands. 01/06: FiO2 40%. Self extubated yesterday. Lasted about 20 Mr. for requiring intubation. Was on 100 percent nonrebreather. Saturations are 90%. During intubation, Ambu bag malfunctioned. Patient was quickly intubated and was arousable moving all 4 extremities prior to re-sedation. We'll attempt sedation vacation again today. 01/07: Remains ventilator dependent, failed extubation yesterday. Unable to wean today, weak. 01/08: Tolerating CPAP trials but unable to extubate. 01/09: Plan transfer to LTAC. 01/10: Continued improvement in renal function. Contraction alkalosis with diuresis. Will require LTAC. 01/11: Will need to get a fair amount of excess water off. Consider gtt. 01/11: Great response to bumex gtt. 01/13: Continue diuresis. Replete electrolytes. Reduce vent rate. 01/14: Diuresed 10 liters net balance. Replace lytes. Correct HCO3 with diamox. Wean vent. 01/15: Despite aggressive diuresis and clearing of CXR he does not tolerate extended SBTs. He will need a tracheostomy if family wishes to pursue aggressive care. 01/16: Serratia in sputum, afebrile. WBC 5600. CXR benign. 01/17: Needs trach for mcc weaning. Need to find family to consent. 01/18: Family has consented. Still fails weaning trials. Will perform trach. 01/19: Underwent percutaneous tracheostomy on 01/18. Remains on mechanical ventilation. 01/20: Remains on propofol for agitation. On mechanical ventilation via tracheostomy. Tolerating tube feeds. 01/22: off propofol. much less agitated today, but still some delirium and still CAM +. CPAP trials today. 01/23: more agitated today. very CAM +. still failing CPAP trials for tachycardia and agitation. 01/24: much more improved today. follows commands. less delirious. 01/25: mentation continues to improve. still CAM -. follows commands. OOB to chair today. 01/26: continues to do well. mentation continues to clear. OOB to chair daily. still awaiting placement. still weaning from vent, but slow given deconditioned state. 01/27: Failed SBT due to tachycardia and tachypnea in am, tolerates CPAP with high PS. Following commands. Awaiting placement 01/28: Tachypneic and tachycardic on CPAP, intermittently agitated. Intermittent wheezing on exam. Denied placement by [employer] due to no PEG tube/or definitive feeding tube 01/29: Calmer today, tolerating CPAP with PS 15. CXR shows unchanged pulm edema and LLL consolidation. BUN creat increased from 33/1.1 to 63/1.7 Lasix held. GI unable to get consent for PEG placement at this time 01/30: Resting comfortably on vent. Failed CPAP today. Follows commands. Consent obtained for PEG today. Creat 1.7, stable. UO adequate SUBJECTIVE 01/31/17: Status post PEG tube placement. Sedated from procedural anesthesia. Tolerating CPAP. UO 1.2 L in 24 hours 02/01/17: Tolerating CPAP less agitated. Creatinine is improved, sodium down to 147. Urine output remains adequate Objective Vital Signs Date Time Temp Pulse Resp B/P Pulse Ox O2 Delivery O2 Flow Rate FiO2 02/01/17 12:03 100 40 02/01/17 12:00 98.6 87 20 192/91 02/01/17 09:51 Nasal Cannula 4.00 Intake and Output 01/31/17 01/31/17 02/01/17 08:00 16:00 00:00 Intake Total 420 ml 250 ml 120 ml Output Total 360 ml 550 ml 300 ml Balance 60 ml -300 ml -180 ml Result Diagram: 02/01/17 0451 02/01/17 0451 Imaging Last Impressions Chest X-Ray 01/06/17 0600 Signed Impressions: Service Date/Time: Friday, January 06, 2017 04:21 - CONCLUSION: Cardiomegaly with bilateral pleural effusions and bibasilar infiltrates. The radiographic pattern is most consistent with pulmonary edema. Sushil Abdi Jr., MD Abdomen X-Ray 01/05/17 0000 Signed Impressions: Service Date/Time: Thursday, January 05, 2017 07:23 - CONCLUSION: Nasogastric tube across the GE junction with minimal gaseous distention. Aba Dick MD FACR Chest CT 01/04/17 0000 Signed Impressions: Service Date/Time: Wednesday, January 04, 2017 12:03 - CONCLUSION: 1. Consolidative changes with small bilateral pleural effusions in both bases. 2. Extensive coronary artery calcifications. Aba Dick MD FACR Renal Ultrasound 01/01/17 0000 Signed Impressions: Service Date/Time: Sunday, January 01, 2017 09:12 - CONCLUSION: Normal examination. Sushil Abdi Jr., MD Scrotum Ultrasound 12/28/16 1246 Signed Impressions: Service Date/Time: Wednesday, December 28, 2016 14:05 - CONCLUSION: 1. Marked thickening of the scrotal wall, up to 2.4 cm on the right. 2. Small complex left hydrocele. 3. Small complex cysts right testicle. Positive testicular blood flow. Nael Scott MD Abdomen/Pelvis CT 12/28/16 1237 Signed Impressions: Service Date/Time: Wednesday, December 28, 2016 14:52 - CONCLUSION: 1. 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 2. Mild bilateral inguinal adenopathy and marked scrotal wall thickening. 3. Fat-containing 5.7 cm umbilical hernia. 4. Atherosclerotic aorta with some displaced intimal calcifications but without significant aneurysm. No bowel obstruction. Mild ileus. Nael Scott MD Objective Remarks GENERAL: 71-year-old male, on vent. Wide awake appears comfortable on vent SKIN: Warm and dry. HEAD: Normocephalic. EYES: Pupils are 2 mm bilaterally and reactive. NECK: Tracheostomy in place, no bleeding CARDIOVASCULAR: Irreg Irreg. Intermittently paced. RESPIRATORY: Unlabored. secretions improved. on CPAP/PS GASTROINTESTINAL: Abdomen soft, non-tender, obese. MUSCULOSKELETAL: Currently with trace to 1+ bilateral lower extremity pitting edema. Foot pulses palpable. NEURO: Moves all 4 extremities spontaneously. Follows commands. 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 Posttraumatic stress disorder Depression/anxiety History of peripheral neuropathy Acute agitated delirium- improved. Seroquel 100mg po q8hr. Haldol 5mg iv q4h prn for breakthrough agitation Melatonin 5mg po qhs for sleep Provigil 200mg po daily. Tizanidine 2mg po q12h. Not on home medications for underlying psychiatric diagnosis. Current regimen will be continued as patient is calmer and cooperative on this regimen CV: Congestive heart failure/systolic ejection fraction 25% 2013 Limited echo EF 35-40% with akinesis apical myocardium History of CABG 4 Hypertension Dyslipidemia History of single-chamber defibrillator 08/19 due to positive EPS study Holding valsartan 320 mg by mouth daily for hypertension due to acute kidney injury Continue Lipitor 40 mg by mouth daily/home medication for dyslipidemia On Coreg 25 mg q12h. Continue hydralazine 25mg three times a day/Isordil 10 every 8 as adjuvant while creatinine elevated Milrinone was discontinued 01/01 due to dysrhythmias Echo 2013 - EF 25-30%. No RWMA. Left atrium dilated. Limited echo 2016 reveals EF 35-40%. Akinesis apical myocardium. Left atrium mild dilatated. Mild MR. Dr. Rob cardiology seeing for underlying atrial flutter. Likely will need ischemic workup Holding Lasix 40 mg daily and spironolactone 12.5 mg daily from 01/29 due to worsening ARF, creat now improved from 1.7 to 1.2 today Free water replacement 200 ml q6 Resp: Acute hypoxemic respiratory failure Ongoing tobaccoism Daily SBTs. working on pulmonary strengthening with CPAP 28/04 as tolerated, with high PS Ventilator bundle. Status post tracheostomy 01/18 Bronchodilator therapy every 4 hours and as needed Secretions improving. CXR in am. Up to stretcher chair as tolerated Unable to wean off vent, need LTAC GI: Gastroesophageal reflux disease 5.7 cm umbilical hernia Glucerna 1.5 goal 55 cc an hour Pepcid 10 mg twice a day for GI prophylaxis. On Prilosec 20 mg by mouth daily at home Colace/senna twice a day for bowel regimen Umbilical hernia seen on CT is reducible. 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 12/28 revealed gas in his perineum/scrotum and the right gluteal cleft. Followed by urology/Dr. Sushil Stein: Diabetes mellitus Gout Sliding scale insulin with Accu-Cheks every 6 hours to maintain euglycemia. Levemir 5 BID Holding Tanzeum 50 mg subcutaneous weekly. Holding allopurinol 200 mg by mouth daily for gout Renal: Acute kidney injury Initial CT revealed no signs of hydronephrosis. Urine eosinophils negative. Renal ultrasound revealed no hydronephrosis No indications for hemodialysis at this point. Creat slightly increased and Lasix Aldactone held, now improving Heme: Normocytic anemia Leukocytosis Daily CBC. Monitor trends Transfused 2 units PRBCs during this hospital stay. No current indication for transfusion of blood at this time. ID: Becca's gangrene Group A beta strep UTI Unasyn 1.5 IV every 6 hours stopped 01/16 (switched to Rocephin per ID) Clindamycin 300 mg by mouth every 6 hours completed 01/02 Rocephin 2gm IV daily 01/16, anticipated stop date 01/29, now completed Pertinent cultures Sputum 01/14 - Serratia Sputum - 12/31 -no growth Abdomen abscess - 12/28 - Escherichia coli, E faecalis and coag negative staph Abdomen abscess - 12/28 - acid-fast bacilli/fungus negative Blood cultures 2 - 12/28 - no growth Urine culture - 12/28 -group A beta strep Infectious disease signed off abx stopped date 01/29 FEN: Hyper-magnesium Hypokalemia - resolved Hypernatremia Replace electrolytes as clinically indicated MSK: PT/OT evaluate and treat Access - Right IJ CVL day placed 12/31 -> d/c - Left radial arterial line day placed 12/31 -> d/c - Left IJ CVL d/c 01/21 Prophylaxis - GI - Pepcid - DVT - SCD/heparin subcutaneous Overall impression: Remains very weak, restricted by chronic poor cardiac function. s/p tracheostomy. Son reasserts full code status for patient. Insurance requires 21 days on vent and 7 days post-trach, 4 days post PEG in order to approve LTAC. Hopefully transfer on Friday Level 2 Enma Hannah MD Feb 01, 2017 14:58
--- NOTE | 2017-02-01 18:06 | HHI.GIFU ---
Subjective Remarks Comfortable in bed tolerating tube feed Objective Vitals I&O Vital Signs Date Time Temp Pulse Resp B/P Pulse Ox O2 Delivery O2 Flow Rate FiO2 02/01/17 16:00 40 02/01/17 16:00 98.4 80 24 137/62 95 02/01/17 16:00 80 02/01/17 14:00 72 02/01/17 12:03 100 40 02/01/17 12:00 98.6 87 20 192/91 97 02/01/17 12:00 87 02/01/17 12:00 40 02/01/17 10:00 97 02/01/17 09:51 95 Nasal Cannula 4.00 02/01/17 09:50 40 02/01/17 09:46 97 40 02/01/17 08:00 40 02/01/17 08:00 74 02/01/17 08:00 98.5 69 20 139/63 95 02/01/17 07:00 95 Mechanical Ventilator 40 02/01/17 06:00 67 02/01/17 04:00 98.6 69 18 158/71 93 02/01/17 04:00 69 02/01/17 04:00 40 02/01/17 03:45 96 40 02/01/17 02:00 66 02/01/17 00:00 98.2 72 22 155/70 99 02/01/17 00:00 40 02/01/17 00:00 72 01/31/17 23:51 99 40 01/31/17 22:00 84 01/31/17 20:01 97 40 01/31/17 20:00 104 01/31/17 20:00 40 01/31/17 20:00 98.7 104 28 198/98 97 01/31/17 19:00 97 Mechanical Ventilator 40 I/O 01/31/17 01/31/17 01/31/17 02/01/17 02/01/17 02/01/17 07:00 15:00 23:00 07:00 15:00 23:00 Intake Total 420 ml 250 ml 120 ml 260 ml 120 ml Output Total 360 ml 550 ml 300 ml 375 ml 575 ml Balance 60 ml -300 ml -180 ml -115 ml -455 ml IV Total 20 ml 0 ml 0 ml 0 ml Tube Feeding 0 ml Tube Irrigant 120 ml 60 ml Other 400 ml 250 ml 200 ml 120 ml Output Urine Total 360 ml 400 ml 250 ml 325 ml 475 ml Stool Total 0 ml 150 ml 50 ml 50 ml 100 ml Laboratory Laboratory Tests Test 02/01/17 04:51 White Blood Count 7.0 Red Blood Count 2.63 Hemoglobin 7.5 Hematocrit 23.5 Mean Corpuscular Volume 89.6 Mean Corpuscular Hemoglobin 28.7 Mean Corpuscular Hemoglobin 32.0 Concent Red Cell Distribution Width 22.4 Platelet Count 238 Mean Platelet Volume 8.4 Neutrophils (%) (Auto) 68.4 Lymphocytes (%) (Auto) 20.1 Monocytes (%) (Auto) 9.3 Eosinophils (%) (Auto) 1.7 Basophils (%) (Auto) 0.5 Neutrophils # (Auto) 4.8 Lymphocytes # (Auto) 1.4 Monocytes # (Auto) 0.7 Eosinophils # (Auto) 0.1 Basophils # (Auto) 0.0 CBC Comment DIFF FINAL Differential Comment Sodium Level 147 Potassium Level 4.1 Chloride Level 108 Carbon Dioxide Level 32.8 Anion Gap 6 Blood Urea Nitrogen 46 Creatinine 1.20 Estimat Glomerular Filtration 60 Rate Random Glucose 85 Calcium Level 8.6 Magnesium Level 2.9 Total Bilirubin 0.4 Aspartate Amino Transf 20 (AST/SGOT) Alanine Aminotransferase 27 (ALT/SGPT) Alkaline Phosphatase 165 Total Protein 6.2 Albumin 2.1 Imaging Last 48 hours Impressions Chest X-Ray 02/01/17 0600 Signed Impressions: Service Date/Time: Wednesday, February 01, 2017 04:11 - CONCLUSION: No significant change small, left greater than right pleural effusions and basilar atelectasis and mild cardiomegaly. Camden Neri MD Physical Exam HEENT: EOMI; on vent CHEST: Chest is clear to auscultation and percussion. CARDIAC: Regular rate and rhythm with no murmur gallop or rubs. ABDOMEN: Soft, obese, nontender; no hepatosplenomegaly; bowel sounds are present in all four quadrants. PEG tube in good position site is clean EXTREMITIES: No clubbing, cyanosis, or edema. SKIN: Normal; no rash; no jaundice. 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 Assessment and Plan Plan ASSESSMENT: - Dysphagia, FEN. Pt with multiple chronic medical problems (CAD, Hyperlipidemia, CHF, DM, HTN) now hospitalized for Becca gangrene, necrotizing fasciitis. following, s/p debridement and washout on 12/30 and then repeat debridement with washout with closure 12/31. He has required prolonged mechanical ventilation and he underwent tracheostomy placement (01/18). NGT with Glucerna 1.5 @ 55 mls/hr goal as recommended by [employer]. Per RN he has a son that is POA but she has tried repeatedly and has had no luck in contacting him for consent for PEG placement. PLAN: -PEG tube functioning patient tolerating tube feeds -We will sign off Joey Abernathy MD Feb 01, 2017 18:06
[2017-02-01] MEDS: ATORVASTATIN 40 MG TAB PO SCH (22:07)
[2017-02-01] MEDS: MELATONIN 5 MG TAB PO SCH (22:08)
[2017-02-02] VITALS (16 sets, daily range): BP systolic 113–178; BP diastolic 55–146; PULSE 60–128; RESP 18–25; TEMP 97.9–101; O2SAT 89–100
[2017-02-02] MEDS: HALOPERIDOL LACTATE 5 MG/ML AMP IV PRN (00:55)
[2017-02-02] MEDS: LABETALOL HCL 100 MG/20 ML VIAL IV PUSH PRN ×4 (01:56→11:45)
[2017-02-02] MEDS: INSULIN NovoLIN REGULAR SUPPLEMENTAL SCALE SQ SCH ×4 (02:18→20:00)
[2017-02-02] MEDS: hydrALAZINE HCL 20 MG/ML VIAL IV PUSH PRN (02:40)
[2017-02-02] MEDS: HYDROmorphone HCL PF 1 MG/ML VIAL IV PUSH PRN (03:20)
[2017-02-02] MEDS: CHLORHEXIDINE GLUCONATE 2 % 1 PACK (2 CLOTHS) TOP SCH (04:00)
[2017-02-02] MEDS: RESP: ALBUTEROL 2.5 MG/IPRATROPIUM 0.5 MG NEB (PRN) INH (04:39)
[2017-02-02] MEDS: hydrALAZINE HCL 25 MG TAB PO SCH ×3 (05:13→21:11)
[2017-02-02] MEDS: QUEtiapine FUMARATE 100 MG TAB PO SCH ×3 (05:14→21:10)
[2017-02-02] MEDS: ISOSORBIDE DINITRATE 10 MG TAB PO SCH ×3 (05:16→21:10)
[2017-02-02] MEDS: FREE WATER NG SCH ×3 (05:35→17:26)
[2017-02-02] MEDS: RESP: BUDESONIDE 0.5 MG/2 ML NEB NEB SCH ×2 (08:00→20:26)
[2017-02-02] MEDS: CHLORHEXIDINE 0.12% (ORAL KIT) 15 ML CUP MT SCH ×2 (09:11→21:10)
[2017-02-02] MEDS: SODIUM CHLORIDE 0.9% FLUSH 10 ML FLUSH SCH ×2 (09:13→21:10)
--- NOTE | 2017-02-02 10:12 | RADRPT ---
EXAM DATE/TIME: 02/02/2017 09:20 [place] COMPARISON: CHEST SINGLE AP, February 01, 2017, 4:11. INDICATIONS : Abdnormal breathing. MEDICAL HISTORY : None. SURGICAL HISTORY : CABG. Pacemaker. ENCOUNTER: Initial ACUITY: 1 day PAIN SCORE: Non-responsive. LOCATION: Bilateral chest FINDINGS: Single AP view of the chest. Tracheostomy tube remains in place. Median sternotomy wires noted. Cardi ac pacemaker noted. Moderate cardiac silhouette enlargement again seen. There is been interval decrea se in bilateral lower lung zone opacity. No evidence of pleural effusion or pneumothorax. CONCLUSION: Decrease bilateral pulmonary opacity likely representing decreased pulmonary edema. Gabe Landers MD on February 02, 2017 at 10:09 Board Certified Radiologist. This report was verified electronically.
[2017-02-02] MEDS: SENNOSIDES SYRUP 8.8 MG/5 ML CUP PO SCH ×2 (10:24→21:12)
[2017-02-02] MEDS: DOCUSATE SODIUM 100 MG/10 ML UDC G-TUBE SCH ×2 (10:24→21:12)
[2017-02-02] MEDS: MODAFINIL 200 MG TAB PO SCH (10:24)
[2017-02-02] MEDS: ARTIFICIAL TEARS OPTH SOLN 15 ML BTL EACH EYE SCH ×3 (10:25→17:26)
[2017-02-02] MEDS: CARVEDILOL 12.5 MG TAB PO SCH ×2 (10:25→21:11)
[2017-02-02] MEDS: FAMOTIDINE 20 MG TAB PO SCH ×2 (10:25→21:10)
[2017-02-02] MEDS: INSULIN DETEMIR 100 UNITS/ML VIAL SQ SCH ×2 (10:26→21:12)
--- NOTE | 2017-02-02 10:27 | HHI.CCPN ---
Subjective Remarks/Hospital Course 71-year-old male presents for evaluation of testicular swelling. Approximately 10 days ago he was started on Aldactone for his blood pressure which. He also noted that her sugars has been slightly elevated. Denies any fevers. He has been feeling generally weak as well. Denied abdominal pain nausea vomiting or diarrhea. He thought the scrotal swelling was from the Aldactone and came into the emergency department to be evaluated. 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 remains intubated overnight. off vasopressors. 12/30: Much more comfortable. Back to OR for washout today. Breathing without distress. STEFFEN improving. Patient has dilated cardiomyopathy with severe systolic heart failure and EF 25-30% by last ECHO 2013. May need low-dose inotrope during course of therapy. 12/30 1800 hrs: Seen after OR today. He has full neck veins and light wheezes with basilar crackles. His underlying LV dysfunction requires that we treat this aggressively with diuretics and subsequent electrolyte replacement. Will move back to [facility]. 12/31: Required rapid response for 2nd time in 12 hours. Will need intubation due to severe systolic heart failure and pulmonary edema. 01/01: Afebrile. Remains nothing by mouth for planned washout today. Decreased urine output noted. Hypertensive with sedation vacation. 01/02: Yesterday with washout and debridement without complication. Continues to be in A. fib intermittently rate controlled. Hemodynamically stable. One bowel movement. Will try spontaneous breathing trials today and attempt to extubate. If unsuccessful will initiate tube feeding. 01/03: Tmax 99.2. Episode of desaturation overnight recording FiO2 100%. Currently back to 50%. Chest x-ray essentially stable. Small left pleural effusion. Low lung volumes. Remains in a flutter rate controlled. Imminently bradycardic. 3 bowel movements on 01/02. Tolerating tube feeding. 01/04: FiO2 currently at 50%. We'll check CT chest. Possible need pleural effusions. Remains in a flutter rate control. Intermittently bradycardic. No bowel movement yesterday. Tube feeds currently off for possible extubation but tolerating previously. Afebrile 01/05: Remains on FiO2 of 50%. CT chest revealed small bilateral pleural effusions otherwise unremarkable. Noted is currently rate controlled. No bowel movement. Tube feeds at goal. Afebrile. Intermittently follows commands. 01/06: FiO2 40%. Self extubated yesterday. Lasted about 20 Mr. for requiring intubation. Was on 100 percent nonrebreather. Saturations are 90%. During intubation, Ambu bag malfunctioned. Patient was quickly intubated and was arousable moving all 4 extremities prior to re-sedation. We'll attempt sedation vacation again today. 01/07: Remains ventilator dependent, failed extubation yesterday. Unable to wean today, weak. 01/08: Tolerating CPAP trials but unable to extubate. 01/09: Plan transfer to LTAC. 01/10: Continued improvement in renal function. Contraction alkalosis with diuresis. Will require LTAC. 01/11: Will need to get a fair amount of excess water off. Consider gtt. 01/11: Great response to bumex gtt. 01/13: Continue diuresis. Replete electrolytes. Reduce vent rate. 01/14: Diuresed 10 liters net balance. Replace lytes. Correct HCO3 with diamox. Wean vent. 01/15: Despite aggressive diuresis and clearing of CXR he does not tolerate extended SBTs. He will need a tracheostomy if family wishes to pursue aggressive care. 01/16: Serratia in sputum, afebrile. WBC 5600. CXR benign. 01/17: Needs trach for usp weaning. Need to find family to consent. 01/18: Family has consented. Still fails weaning trials. Will perform trach. 01/19: Underwent percutaneous tracheostomy on 01/18. Remains on mechanical ventilation. 01/20: Remains on propofol for agitation. On mechanical ventilation via tracheostomy. Tolerating tube feeds. 01/22: off propofol. much less agitated today, but still some delirium and still CAM +. CPAP trials today. 01/23: more agitated today. very CAM +. still failing CPAP trials for tachycardia and agitation. 01/24: much more improved today. follows commands. less delirious. 01/25: mentation continues to improve. still CAM -. follows commands. OOB to chair today. 01/26: continues to do well. mentation continues to clear. OOB to chair daily. still awaiting placement. still weaning from vent, but slow given deconditioned state. 01/27: Failed SBT due to tachycardia and tachypnea in am, tolerates CPAP with high PS. Following commands. Awaiting placement 01/28: Tachypneic and tachycardic on CPAP, intermittently agitated. Intermittent wheezing on exam. Denied placement by [employer] due to no PEG tube/or definitive feeding tube 01/29: Calmer today, tolerating CPAP with PS 15. CXR shows unchanged pulm edema and LLL consolidation. BUN creat increased from 33/1.1 to 63/1.7 Lasix held. GI unable to get consent for PEG placement at this time 01/30: Resting comfortably on vent. Failed CPAP today. Follows commands. Consent obtained for PEG today. Creat 1.7, stable. UO adequate SUBJECTIVE 01/31/17: Status post PEG tube placement. Sedated from procedural anesthesia. Tolerating CPAP. UO 1.2 L in 24 hours 02/01/17: Tolerating CPAP less agitated. Creatinine is improved, sodium down to 147. Urine output remains adequate 02/02/17: Nighttime RN reports some foul-smelling output from the PEG tube. Also had to be put back on full ventilatory support due to respiratory distress. Chest x-ray improving. Dr. Josemanuel CHAMBERS will be informed about the PEG tube. Keep nothing by mouth for now Objective Vital Signs Date Time Temp Pulse Resp B/P Pulse Ox O2 Delivery O2 Flow Rate FiO2 02/02/17 06:00 60 02/02/17 04:40 97 50 02/02/17 04:00 99.9 20 119/87 02/01/17 19:00 Mechanical Ventilator 02/01/17 09:51 4.00 Intake and Output 02/01/17 02/01/17 02/02/17 08:00 16:00 00:00 Intake Total 260 ml 120 ml 562 ml Output Total 375 ml 575 ml 250 ml Balance -115 ml -455 ml 312 ml Result Diagram: 02/01/17 0451 02/01/17 0451 Imaging Last Impressions Chest X-Ray 01/06/17 0600 Signed Impressions: Service Date/Time: Friday, January 06, 2017 04:21 - CONCLUSION: Cardiomegaly with bilateral pleural effusions and bibasilar infiltrates. The radiographic pattern is most consistent with pulmonary edema. Sushil Abdi Jr., MD Abdomen X-Ray 01/05/17 0000 Signed Impressions: Service Date/Time: Thursday, January 05, 2017 07:23 - CONCLUSION: Nasogastric tube across the GE junction with minimal gaseous distention. Aba Dick MD FACR Chest CT 01/04/17 0000 Signed Impressions: Service Date/Time: Wednesday, January 04, 2017 12:03 - CONCLUSION: 1. Consolidative changes with small bilateral pleural effusions in both bases. 2. Extensive coronary artery calcifications. Aba Dick MD FACR Renal Ultrasound 01/01/17 0000 Signed Impressions: Service Date/Time: Sunday, January 01, 2017 09:12 - CONCLUSION: Normal examination. Sushil Abdi Jr., MD Scrotum Ultrasound 12/28/16 1246 Signed Impressions: Service Date/Time: Wednesday, December 28, 2016 14:05 - CONCLUSION: 1. Marked thickening of the scrotal wall, up to 2.4 cm on the right. 2. Small complex left hydrocele. 3. Small complex cysts right testicle. Positive testicular blood flow. Nael Scott MD Abdomen/Pelvis CT 12/28/16 1237 Signed Impressions: Service Date/Time: Wednesday, December 28, 2016 14:52 - CONCLUSION: 1. 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 2. Mild bilateral inguinal adenopathy and marked scrotal wall thickening. 3. Fat-containing 5.7 cm umbilical hernia. 4. Atherosclerotic aorta with some displaced intimal calcifications but without significant aneurysm. No bowel obstruction. Mild ileus. Nael Scott MD Objective Remarks GENERAL: 71-year-old male, on vent. Wide awake appears comfortable on vent SKIN: Warm and dry. HEAD: Normocephalic. EYES: Pupils are 2 mm bilaterally and reactive. NECK: Tracheostomy in place, no bleeding CARDIOVASCULAR: Irreg Irreg. Intermittently paced. RESPIRATORY: Increasing secretion. on PRVC/AC GASTROINTESTINAL: Abdomen soft, non-tender, obese. MUSCULOSKELETAL: Currently with trace to 1+ bilateral lower extremity pitting edema. Foot pulses palpable. NEURO: Moves all 4 extremities spontaneously. Follows commands. 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 Posttraumatic stress disorder Depression/anxiety Acute agitated delirium- improved. Current regimen for agitation: Seroquel 100mg po q8hr. Haldol 5mg iv q4h prn for breakthrough agitation Melatonin 5mg po qhs for sleep Provigil 200mg po daily. Tizanidine 2mg po q12h. Not on home medications for underlying psychiatric diagnosis. Current regimen will be continued as patient is calmer and cooperative on this regimen CV: Congestive heart failure/systolic ejection fraction 25% 2013 Limited echo EF 35-40% with akinesis apical myocardium History of CABG 4 Hypertension Dyslipidemia History of single-chamber defibrillator 08/19 due to positive EPS study Continue Lipitor 40 mg by mouth daily/home medication for dyslipidemia On Coreg 25 mg q12h. Continue hydralazine 25mg three times a day/Isordil 10 every 8 as adjuvant while creatinine elevated Milrinone was discontinued 01/01 due to dysrhythmias Holding valsartan 320 mg by mouth daily for hypertension due to acute kidney injury Echo 2013 - EF 25-30%. No RWMA. Left atrium dilated. Limited echo 2016 reveals EF 35-40%. Akinesis apical myocardium. Left atrium mild dilatated. Mild MR. Holding Lasix 40 mg daily and spironolactone 12.5 mg daily from 01/29 due to worsening ARF, creat now improved from 1.7 to 1.2 02/01. Resume Aldactone today Free water replacement 200 ml q6 Resp: Acute hypoxemic respiratory failure Ongoing tobaccoism Daily SBTs. working on pulmonary strengthening with CPAP 28/04 as tolerated, with high PS Ventilator bundle. Status post tracheostomy 01/18 Bronchodilator therapy every 4 hours and as needed Secretions worsening-send sputum cx. No Abx Unable to wean off vent, need LTAC GI: Gastroesophageal reflux disease 5.7 cm umbilical hernia Glucerna 1.5 goal 55 cc an hour Pepcid 10 mg twice a day for GI prophylaxis. On Prilosec 20 mg by mouth daily at home Colace/senna twice a day for bowel regimen Umbilical hernia seen on CT is reducible. Levemir bid s/p PEG tube placement 01/31/17. ? Foul smelling discharge- Ok to resume tube feeds per Dr. 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 12/28 revealed gas in his perineum/scrotum and the right gluteal cleft. Followed by urology/Dr. Ling Endo: Diabetes mellitus Gout Sliding scale insulin with Accu-Cheks every 6 hours to maintain euglycemia. Levemir 5 BID Holding Tanzeum 50 mg subcutaneous weekly. Holding allopurinol 200 mg by mouth daily for gout Renal: Acute kidney injury-improving Initial CT revealed no signs of hydronephrosis. Urine eosinophils negative. Renal ultrasound revealed no hydronephrosis No indications for hemodialysis at this point. Creat slightly increased and Lasix Aldactone held, now improving. Resume Aldactone 12.5 mg daily 02/02 Heme: Normocytic anemia Leukocytosis Daily CBC. Monitor trends Transfused 2 units PRBCs during this hospital stay. No current indication for transfusion of blood at this time. ID: Becca's gangrene Group A beta strep UTI Unasyn 1.5 IV every 6 hours stopped 01/16 (switched to Rocephin per ID) Clindamycin 300 mg by mouth every 6 hours completed 01/02 Rocephin 2gm IV daily 01/16, stop date 01/29 Pertinent cultures Sputum 01/14 - Serratia Sputum - 12/31 -no growth Abdomen abscess - 12/28 - Escherichia coli, E faecalis and coag negative staph Abdomen abscess - 12/28 - acid-fast bacilli/fungus negative Blood cultures 2 - 12/28 - no growth Urine culture - 12/28 -group A beta strep Sputum cx 02/02-P Infectious disease signed off abx stopped date 01/29 FEN: Hyper-magnesium Hypokalemia - resolved Hypernatremia Replace electrolytes as clinically indicated MSK: PT/OT evaluate and treat Access - Right IJ CVL day placed 12/31 -> d/c - Left radial arterial line day placed 12/31 -> d/c - Left IJ CVL d/c 01/21 Prophylaxis - GI - Pepcid - DVT - SCD/heparin subcutaneous resumed today 02/02 (held for PEG) Overall impression: Remains very weak, restricted by chronic poor cardiac function. s/p tracheostomy. Son reasserts full code status for patient. Insurance requires 21 days on vent and 7 days post-trach, 4 days post PEG in order to approve LTAC. Hopefully transfer on Friday Level 3 Enma Hannah MD Feb 02, 2017 10:27
[2017-02-02 12:09] LABS: BICARBONATE 30.7 MEQ/L (21.0-32.0); POTASSIUM 4.3 MEQ/L (3.5-5.1)
[2017-02-02] MEDS ORDERED: SODIUM CHLOR 0.9% 250 ML INJ 250 ML IV ONE (16:00)
[2017-02-02] MEDS: ATORVASTATIN 40 MG TAB PO SCH (21:10)
[2017-02-02] MEDS: MELATONIN 5 MG TAB PO SCH (21:11)
[2017-02-02] MEDS: HEPARIN SODIUM - SQ 10,000 UNITS/ML VIAL SQ SCH (21:12)
--- NOTE | 2017-02-02 22:16 | HHI.GIFU ---
Subjective Remarks I was called back regarding possibly foul-smelling gastric feeding residue Currently patient appears to be comfortable in bed he has a tracheostomy and is unable to communicate Objective Vitals I&O Vital Signs Date Time Temp Pulse Resp B/P Pulse Ox O2 Delivery O2 Flow Rate FiO2 02/02/17 20:26 99 50 02/02/17 18:00 97 02/02/17 16:00 86 02/02/17 16:00 50 02/02/17 16:00 100.3 86 18 121/62 89 02/02/17 14:00 104 02/02/17 12:00 95 02/02/17 12:00 101.0 95 25 156/83 96 02/02/17 12:00 50 02/02/17 11:38 100 50 02/02/17 10:00 96 02/02/17 08:00 98.5 88 20 113/55 99 02/02/17 08:00 50 02/02/17 08:00 60 02/02/17 07:00 98 Mechanical Ventilator 50 02/02/17 06:00 60 02/02/17 04:40 97 50 02/02/17 04:00 50 02/02/17 04:00 114 02/02/17 04:00 99.9 113 20 119/87 96 02/02/17 02:00 128 02/02/17 01:05 99 40 02/02/17 00:00 98.6 101 18 178/146 94 02/02/17 00:00 40 02/02/17 00:00 105 02/01/17 22:28 94 40 I/O 02/01/17 02/01/17 02/01/17 02/02/17 02/02/17 02/02/17 07:00 15:00 23:00 07:00 15:00 23:00 Intake Total 260 ml 120 ml 562 ml 200 ml 457 ml 650 ml Output Total 375 ml 575 ml 250 ml 550 ml 275 ml Balance -115 ml -455 ml 312 ml -350 ml 182 ml 650 ml IV Total 0 ml 0 ml 0 ml 250 ml Tube Feeding 0 ml Tube Irrigant 60 ml 162 ml 257 ml Other 200 ml 120 ml 400 ml 200 ml 200 ml 400 ml Output Urine Total 325 ml 475 ml 250 ml 150 ml 175 ml Stool Total 50 ml 100 ml 0 ml 100 ml Gastric Drainage Total 400 ml Laboratory Laboratory Tests Test 02/02/17 11:27 Sodium Level 144 Potassium Level 4.3 Chloride Level 106 Carbon Dioxide Level 30.7 Anion Gap 7 Blood Urea Nitrogen 44 Creatinine 1.48 Estimat Glomerular Filtration 47 Rate Random Glucose 131 Calcium Level 8.8 Date/Time Procedure Status Source Growth 02/02/17 15:00 Gram Stain Received Sputum Endotracheal Pending 02/02/17 15:00 Sputum Culture Received Sputum Endotracheal Pending Physical Exam HEENT: EOMI; on vent CHEST: Chest is clear to auscultation and percussion. CARDIAC: Regular rate and rhythm with no murmur gallop or rubs. ABDOMEN: Soft, obese, nontender; no hepatosplenomegaly; bowel sounds are present in all four quadrants. PEG tube in good position site is clean EXTREMITIES: No clubbing, cyanosis, or edema. SKIN: Normal; no rash; no jaundice. 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 Assessment and Plan Plan ASSESSMENT: - Dysphagia, FEN. Pt with multiple chronic medical problems (CAD, Hyperlipidemia, CHF, DM, HTN) now hospitalized for Becca gangrene, necrotizing fasciitis. following, s/p debridement and washout on 12/30 and then repeat debridement with washout with closure 12/31. He has required prolonged mechanical ventilation and he underwent tracheostomy placement (01/18). NGT with Glucerna 1.5 @ 55 mls/hr goal as recommended by [employer] Executive Producer. Per RN he has a son that is POA but she has tried repeatedly and has had no luck in contacting him for consent for PEG placement. PLAN: -PEG tube functioning patient tolerating tube feeds I discussed with the nurse and she tells me that the tube feeds were not foul-smelling but it was somewhat darkish with no bright red blood return The nurse is advised to advance diet to goal and if there were to be any concerns she is to call -We will check on the patient tomorrow to see how well he is tolerating the tube feeding and how his hemoglobin is faring Joey Abernathy MD Feb 02, 2017 22:16
[2017-02-03] VITALS (17 sets, daily range): BP systolic 95–139; BP diastolic 54–72; PULSE 75–102; RESP 19–22; TEMP 98.7–99.9; O2SAT 92–100
[2017-02-03] MEDS: INSULIN NovoLIN REGULAR SUPPLEMENTAL SCALE SQ SCH ×4 (02:35→20:00)
[2017-02-03] MEDS: CHLORHEXIDINE GLUCONATE 2 % 1 PACK (2 CLOTHS) TOP SCH (02:42)
[2017-02-03] MEDS: hydrALAZINE HCL 25 MG TAB PO SCH ×3 (05:12→21:12)
[2017-02-03] MEDS: QUEtiapine FUMARATE 100 MG TAB PO SCH ×3 (05:12→21:21)
[2017-02-03] MEDS: ISOSORBIDE DINITRATE 10 MG TAB PO SCH ×3 (05:12→21:21)
[2017-02-03] MEDS: HEPARIN SODIUM - SQ 10,000 UNITS/ML VIAL SQ SCH ×3 (05:13→21:12)
[2017-02-03] MEDS: FREE WATER NG SCH ×4 (05:13→18:30)
[2017-02-03] MEDS: RESP: ALBUTEROL 2.5 MG/IPRATROPIUM 0.5 MG NEB (PRN) INH (07:50)
[2017-02-03] MEDS: RESP: BUDESONIDE 0.5 MG/2 ML NEB NEB SCH ×2 (07:50→20:09)
[2017-02-03] MEDS: CHLORHEXIDINE 0.12% (ORAL KIT) 15 ML CUP MT SCH ×2 (09:28→20:00)
[2017-02-03] MEDS: SODIUM CHLORIDE 0.9% FLUSH 10 ML FLUSH SCH ×2 (09:29→21:45)
[2017-02-03] MEDS: INSULIN DETEMIR 100 UNITS/ML VIAL SQ SCH ×2 (09:30→21:11)
[2017-02-03] MEDS: FAMOTIDINE 20 MG TAB PO SCH ×2 (09:31→21:13)
[2017-02-03] MEDS: SPIRONOLACTONE 25 MG TAB PO SCH (09:31)
[2017-02-03] MEDS: DOCUSATE SODIUM 100 MG/10 ML UDC G-TUBE SCH ×2 (09:31→21:13)
[2017-02-03] MEDS: ARTIFICIAL TEARS OPTH SOLN 15 ML BTL EACH EYE SCH ×3 (09:31→18:31)
[2017-02-03] MEDS: SENNOSIDES SYRUP 8.8 MG/5 ML CUP PO SCH ×2 (09:31→21:21)
[2017-02-03] MEDS: MODAFINIL 200 MG TAB PO SCH (09:31)
[2017-02-03] MEDS: CARVEDILOL 12.5 MG TAB PO SCH ×2 (09:32→21:13)
--- NOTE | 2017-02-03 14:27 | HHI.GIFU ---
Subjective Remarks Resting in bed, tolerating tf. No active bleeding. Flushed and aspirated PEG tube- only tf in return- no dark return, no bloody return. (Dina Yun) Objective Vitals I&O Vital Signs Date Time Temp Pulse Resp B/P Pulse Ox O2 Delivery O2 Flow Rate FiO2 02/03/17 12:00 79 02/03/17 12:00 98.9 79 22 98/55 98 02/03/17 12:00 97 50 02/03/17 12:00 50 02/03/17 10:00 75 02/03/17 08:00 92 02/03/17 08:00 99.0 93 21 112/72 96 02/03/17 08:00 50 02/03/17 07:51 100 50 02/03/17 07:12 20 02/03/17 07:00 99 Mechanical Ventilator 50 02/03/17 06:00 89 02/03/17 04:34 45 02/03/17 04:30 94 40 02/03/17 04:00 96 02/03/17 04:00 99.9 96 20 139/69 92 02/03/17 02:26 96 40 02/03/17 02:00 40 02/03/17 02:00 82 02/03/17 00:00 50 02/03/17 00:00 98.7 86 19 95/54 95 02/03/17 00:00 89 02/02/17 22:00 87 02/02/17 20:26 99 50 02/02/17 20:00 50 02/02/17 20:00 100 Mechanical Ventilator 50 02/02/17 20:00 97.9 114 19 151/88 100 02/02/17 20:00 112 02/02/17 18:00 97 02/02/17 16:00 86 02/02/17 16:00 50 02/02/17 16:00 100.3 86 18 121/62 89 I/O 02/02/17 02/02/17 02/02/17 02/03/17 02/03/17 02/03/17 07:00 15:00 23:00 07:00 15:00 23:00 Intake Total 200 ml 457 ml 1059 ml 647 ml Output Total 550 ml 275 ml 250 ml 200 ml Balance -350 ml 182 ml 809 ml 447 ml IV Total 0 ml 250 ml Tube Feeding 209 ml 247 ml Tube Irrigant 257 ml Other 200 ml 200 ml 600 ml 400 ml Output Urine Total 150 ml 175 ml 200 ml 200 ml Stool Total 100 ml 50 ml 0 ml Gastric Drainage Total 400 ml Laboratory Date/Time Procedure Status Source Growth 02/02/17 15:00 Gram Stain - Final Resulted Sputum Endotracheal 02/02/17 15:00 Sputum Culture Resulted Sputum Endotracheal Pending Imaging Last Impressions Chest X-Ray 02/02/17 0000 Signed Impressions: Service Date/Time: Thursday, February 02, 2017 09:20 - CONCLUSION: Decrease bilateral pulmonary opacity likely representing decreased pulmonary edema. Gabe Landers MD Abdomen X-Ray 01/05/17 0000 Signed Impressions: Service Date/Time: Thursday, January 05, 2017 07:23 - CONCLUSION: Nasogastric tube across the GE junction with minimal gaseous distention. Aba Dick MD FACR Chest CT 01/04/17 0000 Signed Impressions: Service Date/Time: Wednesday, January 04, 2017 12:03 - CONCLUSION: 1. Consolidative changes with small bilateral pleural effusions in both bases. 2. Extensive coronary artery calcifications. Aba Dick MD FACR Renal Ultrasound 01/01/17 0000 Signed Impressions: Service Date/Time: Sunday, January 01, 2017 09:12 - CONCLUSION: Normal examination. Sushil Abdi Jr., MD Scrotum Ultrasound 12/28/16 1246 Signed Impressions: Service Date/Time: Wednesday, December 28, 2016 14:05 - CONCLUSION: 1. Marked thickening of the scrotal wall, up to 2.4 cm on the right. 2. Small complex left hydrocele. 3. Small complex cysts right testicle. Positive testicular blood flow. Nael Scott MD Abdomen/Pelvis CT 12/28/16 1237 Signed Impressions: Service Date/Time: Wednesday, December 28, 2016 14:52 - CONCLUSION: 1. 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 2. Mild bilateral inguinal adenopathy and marked scrotal wall thickening. 3. Fat-containing 5.7 cm umbilical hernia. 4. Atherosclerotic aorta with some displaced intimal calcifications but without significant aneurysm. No bowel obstruction. Mild ileus. Nael Scott MD Physical Exam HEENT: Normocephalic, atraumatic CHEST: Tracheostomy, Diminished breath sounds CARDIAC: RRR ABDOMEN: Soft, obese, nontender; no hepatosplenomegaly; bowel sounds are present in all four quadrants. PEG tube in good position site is clean- flushed and aspirated tube feeding without dark or bloody return. EXTREMITIES: No clubbing, cyanosis, or edema. SKIN: Normal; no rash; no jaundice. 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 (Dina Yun) Assessment and Plan Plan ASSESSMENT: - Reconsulted for dark return from PEG tube. Pt tolerating TF. I flushed and aspirated from the peg tube and had tf in return- without bloody or dark return. HH stable. 7.5/23.5. Likely this was from PEG tube insertion. Okay to use. - Dysphagia, FEN. Pt with multiple chronic medical problems (CAD, Hyperlipidemia, CHF, DM, HTN) now hospitalized for Becca gangrene, necrotizing fasciitis. following, s/p debridement and washout on 12/30 and then repeat debridement with washout with closure 12/31. He has required prolonged mechanical ventilation and he underwent tracheostomy placement (01/18). NGT with Glucerna 1.5 @ 55 mls/hr goal as recommended by Program Support Clerk. S/P PEG tube placement (01/31/17)---> Normal EGD , Successful PEG placement. PLAN: - Okay to use PEG tube- Glucerna 1.5 at 55cc/hr - Monitor HH - Notify GI of active bleeding - GI will sign off, please reconsult as needed - Pt seen and examined by Dr. Cardoza and myself and this note is written on his behalf (Dina Yun) Physician Comments Seen and examined with MANAGER UTILIZATION MANAGEMENT< no active bleeding. TF as tolerated. Will sign off , reconsult as needed. Thank you (Gela Cardoza MD) Dina Yun February 03, 2017 14:27 Gela Cardoza MD February 03, 2017 18:37
--- NOTE | 2017-02-03 14:37 | HHI.CCPN ---
Subjective Remarks/Hospital Course 71-year-old male presents for evaluation of testicular swelling. Approximately 10 days ago he was started on Aldactone for his blood pressure which. He also noted that her sugars has been slightly elevated. Denies any fevers. He has been feeling generally weak as well. Denied abdominal pain nausea vomiting or diarrhea. He thought the scrotal swelling was from the Aldactone and came into the emergency department to be evaluated. 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 remains intubated overnight. off vasopressors. 12/30: Much more comfortable. Back to OR for washout today. Breathing without distress. STEFFEN improving. Patient has dilated cardiomyopathy with severe systolic heart failure and EF 25-30% by last ECHO 2013. May need low-dose inotrope during course of therapy. 12/30 1800 hrs: Seen after OR today. He has full neck veins and light wheezes with basilar crackles. His underlying LV dysfunction requires that we treat this aggressively with diuretics and subsequent electrolyte replacement. Will move back to [facility]. 12/31: Required rapid response for 2nd time in 12 hours. Will need intubation due to severe systolic heart failure and pulmonary edema. 01/01: Afebrile. Remains nothing by mouth for planned washout today. Decreased urine output noted. Hypertensive with sedation vacation. 01/02: Yesterday with washout and debridement without complication. Continues to be in A. fib intermittently rate controlled. Hemodynamically stable. One bowel movement. Will try spontaneous breathing trials today and attempt to extubate. If unsuccessful will initiate tube feeding. 01/03: Tmax 99.2. Episode of desaturation overnight recording FiO2 100%. Currently back to 50%. Chest x-ray essentially stable. Small left pleural effusion. Low lung volumes. Remains in a flutter rate controlled. Imminently bradycardic. 3 bowel movements on 01/02. Tolerating tube feeding. 01/04: FiO2 currently at 50%. We'll check CT chest. Possible need pleural effusions. Remains in a flutter rate control. Intermittently bradycardic. No bowel movement yesterday. Tube feeds currently off for possible extubation but tolerating previously. Afebrile 01/05: Remains on FiO2 of 50%. CT chest revealed small bilateral pleural effusions otherwise unremarkable. Noted is currently rate controlled. No bowel movement. Tube feeds at goal. Afebrile. Intermittently follows commands. 01/06: FiO2 40%. Self extubated yesterday. Lasted about 20 Mr. for requiring intubation. Was on 100 percent nonrebreather. Saturations are 90%. During intubation, Ambu bag malfunctioned. Patient was quickly intubated and was arousable moving all 4 extremities prior to re-sedation. We'll attempt sedation vacation again today. 01/07: Remains ventilator dependent, failed extubation yesterday. Unable to wean today, weak. 01/08: Tolerating CPAP trials but unable to extubate. 01/09: Plan transfer to LTAC. 01/10: Continued improvement in renal function. Contraction alkalosis with diuresis. Will require LTAC. 01/11: Will need to get a fair amount of excess water off. Consider gtt. 01/11: Great response to bumex gtt. 01/13: Continue diuresis. Replete electrolytes. Reduce vent rate. 01/14: Diuresed 10 liters net balance. Replace lytes. Correct HCO3 with diamox. Wean vent. 01/15: Despite aggressive diuresis and clearing of CXR he does not tolerate extended SBTs. He will need a tracheostomy if family wishes to pursue aggressive care. 01/16: Serratia in sputum, afebrile. WBC 5600. CXR benign. 01/17: Needs trach for snf weaning. Need to find family to consent. 01/18: Family has consented. Still fails weaning trials. Will perform trach. 01/19: Underwent percutaneous tracheostomy on 01/18. Remains on mechanical ventilation. 01/20: Remains on propofol for agitation. On mechanical ventilation via tracheostomy. Tolerating tube feeds. 01/22: off propofol. much less agitated today, but still some delirium and still CAM +. CPAP trials today. 01/23: more agitated today. very CAM +. still failing CPAP trials for tachycardia and agitation. 01/24: much more improved today. follows commands. less delirious. 01/25: mentation continues to improve. still CAM -. follows commands. OOB to chair today. 01/26: continues to do well. mentation continues to clear. OOB to chair daily. still awaiting placement. still weaning from vent, but slow given deconditioned state. 01/27: Failed SBT due to tachycardia and tachypnea in am, tolerates CPAP with high PS. Following commands. Awaiting placement 01/28: Tachypneic and tachycardic on CPAP, intermittently agitated. Intermittent wheezing on exam. Denied placement by [employer] due to no PEG tube/or definitive feeding tube 01/29: Calmer today, tolerating CPAP with PS 15. CXR shows unchanged pulm edema and LLL consolidation. BUN creat increased from 33/1.1 to 63/1.7 Lasix held. GI unable to get consent for PEG placement at this time 01/30: Resting comfortably on vent. Failed CPAP today. Follows commands. Consent obtained for PEG today. Creat 1.7, stable. UO adequate SUBJECTIVE 01/31/17: Status post PEG tube placement. Sedated from procedural anesthesia. Tolerating CPAP. UO 1.2 L in 24 hours 02/01/17: Tolerating CPAP less agitated. Creatinine is improved, sodium down to 147. Urine output remains adequate 02/02/17: Nighttime RN reports some foul-smelling output from the PEG tube. Also had to be put back on full ventilatory support due to respiratory distress. Chest x-ray improving. Dr. Josemanuel CHAMBERS will be informed about the PEG tube. Keep nothing by mouth for now 02/03: On full vent support. Breathing comfortably. Awaiting transfer to LTAC when bed available. tolerating tube feeds today Objective Vital Signs Date Time Temp Pulse Resp B/P Pulse Ox O2 Delivery O2 Flow Rate FiO2 02/03/17 12:00 79 02/03/17 12:00 98.9 22 98/55 98 02/03/17 12:00 50 02/03/17 07:00 Mechanical Ventilator 02/01/17 09:51 4.00 Intake and Output 02/02/17 02/02/17 02/03/17 08:00 16:00 00:00 Intake Total 200 ml 1007 ml 509 ml Output Total 550 ml 275 ml 250 ml Balance -350 ml 732 ml 259 ml Result Diagram: 02/01/17 0451 02/02/17 1127 Imaging Last Impressions Chest X-Ray 01/06/17 0600 Signed Impressions: Service Date/Time: Friday, January 06, 2017 04:21 - CONCLUSION: Cardiomegaly with bilateral pleural effusions and bibasilar infiltrates. The radiographic pattern is most consistent with pulmonary edema. Sushil Abdi Jr., MD Abdomen X-Ray 01/05/17 0000 Signed Impressions: Service Date/Time: Thursday, January 05, 2017 07:23 - CONCLUSION: Nasogastric tube across the GE junction with minimal gaseous distention. Aba Dick MD FACR Chest CT 01/04/17 0000 Signed Impressions: Service Date/Time: Wednesday, January 04, 2017 12:03 - CONCLUSION: 1. Consolidative changes with small bilateral pleural effusions in both bases. 2. Extensive coronary artery calcifications. Aba Dick MD FACR Renal Ultrasound 01/01/17 0000 Signed Impressions: Service Date/Time: Sunday, January 01, 2017 09:12 - CONCLUSION: Normal examination. Sushil Abdi Jr., MD Scrotum Ultrasound 12/28/16 1246 Signed Impressions: Service Date/Time: Wednesday, December 28, 2016 14:05 - CONCLUSION: 1. Marked thickening of the scrotal wall, up to 2.4 cm on the right. 2. Small complex left hydrocele. 3. Small complex cysts right testicle. Positive testicular blood flow. Nael Scott MD Abdomen/Pelvis CT 12/28/16 1237 Signed Impressions: Service Date/Time: Wednesday, December 28, 2016 14:52 - CONCLUSION: 1. 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 2. Mild bilateral inguinal adenopathy and marked scrotal wall thickening. 3. Fat-containing 5.7 cm umbilical hernia. 4. Atherosclerotic aorta with some displaced intimal calcifications but without significant aneurysm. No bowel obstruction. Mild ileus. Nael Scott MD Objective Remarks GENERAL: 71-year-old male, on vent. Wide awake appears comfortable on vent SKIN: Warm and dry. HEAD: Normocephalic. EYES: Pupils are 2 mm bilaterally and reactive. NECK: Tracheostomy in place, no bleeding CARDIOVASCULAR: Irreg Irreg. Intermittently paced. RESPIRATORY: large amount of secretion. on PRVC/AC GASTROINTESTINAL: Abdomen soft, non-tender, obese. MUSCULOSKELETAL: Currently with trace to 1+ bilateral lower extremity pitting edema. Foot pulses palpable. NEURO: Moves all 4 extremities spontaneously. Follows commands. 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 Acute toxic metabolic encephalopathy- resolved. Posttraumatic stress disorder, Depression/anxiety Current regimen for agitation: Seroquel 100mg po q8hr. Haldol 5mg iv q4h prn for breakthrough agitation Melatonin 5mg po qhs for sleep Provigil 200mg po daily. Tizanidine 2mg po q12h. Not on home medications for underlying psychiatric diagnosis. Current regimen will be continued as patient is calmer and cooperative on this regimen, he has underlying PTSD CV: Congestive heart failure/systolic ejection fraction 25% 2013 Limited echo EF 35-40% with akinesis apical myocardium History of CABG 4 Hypertension Dyslipidemia History of single-chamber defibrillator 08/19 due to positive EPS study Continue Lipitor 40 mg by mouth daily/home medication for dyslipidemia On Coreg 25 mg q12h. Continue hydralazine 25mg three times a day/Isordil 10 every 8 as adjuvant while creatinine elevated. Holding valsartan Milrinone was discontinued 01/01 due to dysrhythmias Echo 2013 - EF 25-30%. No RWMA. Left atrium dilated. Limited echo 2016 reveals EF 35-40%. Akinesis apical myocardium. Holding Lasix 40 mg daily. Resumed Aldactone today 02/02/17. Check BMP Free water replacement 200 ml q6 Resp: Acute hypoxemic respiratory failure Ongoing tobaccoism Daily SBTs. working on pulmonary strengthening with CPAP as tolerated, with high PS Ventilator bundle. Status post tracheostomy 01/18 Bronchodilator therapy every 4 hours and as needed Secretions worsening-send sputum cx. No Abx Unable to wean off vent, need LTAC GI: Gastroesophageal reflux disease 5.7 cm umbilical hernia Glucerna 1.5 goal 55 cc an hour Pepcid 10 mg twice a day for GI prophylaxis. On Prilosec 20 mg by mouth daily at home Colace/senna twice a day for bowel regimen Levemir bid s/p PEG tube placement 01/31/17. tolerating tube feeds : Becca's gangrene BPH Postop for Becca's gangrene/ necrotizing fasciitis posterior scrotum, perineum and right perirectal tissue Postop washout and debridement for his gangrene Postoperative washout and debridement. 12/28 revealed gas in his perineum/scrotum and the right gluteal cleft. Followed by urology/Dr. Ling Endo: Diabetes mellitus Gout Sliding scale insulin with Accu-Cheks every 6 hours to maintain euglycemia. Levemir 5 BID Holding Tanzeum 50 mg subcutaneous weekly. Holding allopurinol 200 mg by mouth daily for gout Renal: Acute kidney injury-improving Initial CT revealed no signs of hydronephrosis. Urine eosinophils negative. Renal ultrasound revealed no hydronephrosis No indications for hemodialysis at this point. Creat slightly increased and Lasix Aldactone held, now improving. Resumed Aldactone 12.5 mg daily 02/02. Check CMP today Heme: Normocytic anemia Leukocytosis Daily CBC. Monitor trends Transfused 2 units PRBCs during this hospital stay. No current indication for transfusion of blood at this time. ID: Becca's gangrene Group A beta strep UTI Unasyn 1.5 IV every 6 hours stopped 01/16 (switched to Rocephin per ID) Clindamycin 300 mg by mouth every 6 hours completed 01/02 Rocephin 2gm IV daily 01/16, stop date 01/29 Pertinent cultures Sputum 01/14 - Serratia Sputum - 12/31 -no growth Abdomen abscess - 12/28 - Escherichia coli, E faecalis and coag negative staph Abdomen abscess - 12/28 - acid-fast bacilli/fungus negative Blood cultures 2 - 12/28 - no growth Urine culture - 12/28 -group A beta strep Sputum cx 02/02-P Infectious disease signed off abx stopped 01/29 FEN: Hyper-magnesium Hypokalemia - resolved Hypernatremia Replace electrolytes as clinically indicated MSK: PT/OT evaluate and treat Access - Right IJ CVL day placed 12/31 -> d/c - Left radial arterial line day placed 12/31 -> d/c - Left IJ CVL d/c 01/21 Prophylaxis - GI - Pepcid - DVT - SCD/heparin subcutaneous resumed 02/02 (held for PEG) Overall impression: Remains very weak, restricted by chronic poor cardiac function. s/p tracheostomy. Son reasserts full code status for patient. Insurance requires 21 days on vent and 7 days post-trach, 4 days post PEG in order to approve LTAC. Hopefully transfer soon when bed available Level 2 Enma Hannah MD February 03, 2017 14:37 Level 3 Enma Hannah MD February 03, 2017 14:37
[2017-02-03 16:39] LABS: BICARBONATE 31.2 MEQ/L (21.0-32.0); POTASSIUM 4.1 MEQ/L (3.5-5.1)
[2017-02-03] MEDS: SODIUM CHLOR 0.9% 1000 ML INJ 1,000 ML IV SCH (18:30)
[2017-02-03] MEDS: ATORVASTATIN 40 MG TAB PO SCH (21:12)
[2017-02-03] MEDS: MELATONIN 5 MG TAB PO SCH (21:21)
[2017-02-04] VITALS (17 sets, daily range): BP systolic 110–171; BP diastolic 57–92; PULSE 76–105; RESP 12–48; TEMP 96–99.5; O2SAT 92–100
[2017-02-04] MEDS: INSULIN NovoLIN REGULAR SUPPLEMENTAL SCALE SQ SCH ×4 (02:00→20:00)
[2017-02-04 03:44] LABS: AUTOMATED NEUTROPHIL # 9.2 TH/MM3 (1.8-7.7); BASOPHIL % 0.4 % (0.0-2.0); EOSINOPHIL # 0.1 TH/MM3 (0-0.4); EOSINOPHIL % 0.7 % (0.0-4.0); HEMATOCRIT 22.5 % (39.0-51.0); HEMO FLAGS DIFF FINAL; LYMPH % 11.8 % (9.0-44.0); LYMPHOCYTE # 1.3 TH/MM3 (1.0-4.8); MEAN CELL VOLUME 89.5 FL (80.0-100.0); MEAN CORPUSCULAR HEMOGLOBIN 29.1 PG (27.0-34.0); MEAN CORPUSCULAR HGB CONC 32.6 % (32.0-36.0); MONO % 4.9 % (0.0-8.0); NEUT % 82.2 % (16.0-70.0); PLATELET COUNT 233 TH/MM3 (150-450); RED BLOOD COUNT 2.52 MIL/MM3 (4.50-5.90); WHITE BLOOD COUNT 11.2 TH/MM3 (4.0-11.0)
[2017-02-04] MEDS: CHLORHEXIDINE GLUCONATE 2 % 1 PACK (2 CLOTHS) TOP SCH (04:00)
[2017-02-04 04:09] LABS: ALT (GPT) 27 U/L (12-78); ANION GAP 8 MEQ/L (5-15); AST (GOT) 32 U/L (15-37); BICARBONATE 30.6 MEQ/L (21.0-32.0); BLOOD UREA NITROGEN 58 MG/DL (7-18); CHLORIDE 103 MEQ/L (98-107); GLOMERULAR FILTRATION RATE 37 ML/MIN (>89); MAGNESIUM 2.7 MG/DL (1.5-2.5); POTASSIUM 4.2 MEQ/L (3.5-5.1); SODIUM (NA) 142 MEQ/L (136-145)
[2017-02-04 04:11] LABS: ALKALINE PHOSPHATASE 145 U/L (45-117); TOTAL BILIRUBIN ADULT 0.4 MG/DL (0.2-1.0)
[2017-02-04] MEDS: SODIUM CHLOR 0.9% 1000 ML INJ 1,000 ML IV SCH ×2 (05:55→16:34)
--- NOTE | 2017-02-04 06:35 | RADRPT ---
EXAM DATE/TIME: 02/04/2017 04:33 [facility] COMPARISON: CHEST SINGLE AP, February 02, 2017, 9:20. INDICATIONS : Shortness of breath. MEDICAL HISTORY : None. SURGICAL HISTORY : Pacemaker. ENCOUNTER: Subsequent ACUITY: 1 month PAIN SCORE: Non-responsive. LOCATION: Bilateral chest FINDINGS: The cardiac silhouette is normal in transverse diameter. Median sternotomy wires are present. A trach eostomy tube is in place in the midline. There are findings of congestive heart failure with intersti tial and alveolar opacity bilaterally. This is new when compared with the prior exam. CONCLUSION: 1. Cardiomegaly and findings of congestive heart failure. Bony mineralization is normal. Aman French MD on February 04, 2017 at 6:32 Board Certified Radiologist. This report was verified electronically.
[2017-02-04] MEDS: RESP: BUDESONIDE 0.5 MG/2 ML NEB NEB SCH ×2 (07:56→20:03)
[2017-02-04] MEDS: RESP: ALBUTEROL 2.5 MG/IPRATROPIUM 0.5 MG NEB (PRN) INH ×2 (07:56→20:03)
[2017-02-04] MEDS: CHLORHEXIDINE 0.12% (ORAL KIT) 15 ML CUP MT SCH ×2 (08:00→20:00)
[2017-02-04] MEDS: DOCUSATE SODIUM 100 MG/10 ML UDC G-TUBE SCH ×2 (08:21→21:03)
[2017-02-04] MEDS: FAMOTIDINE 20 MG TAB PO SCH ×2 (08:21→21:04)
[2017-02-04] MEDS: MODAFINIL 200 MG TAB PO SCH (08:21)
[2017-02-04] MEDS: CARVEDILOL 12.5 MG TAB PO SCH ×2 (08:21→21:05)
[2017-02-04] MEDS: SENNOSIDES SYRUP 8.8 MG/5 ML CUP PO SCH ×2 (08:21→21:03)
[2017-02-04] MEDS: INSULIN DETEMIR 100 UNITS/ML VIAL SQ SCH ×2 (09:00→21:05)
[2017-02-04] MEDS: SODIUM CHLORIDE 0.9% FLUSH 10 ML FLUSH SCH ×2 (09:00→21:07)
[2017-02-04] MEDS: ARTIFICIAL TEARS OPTH SOLN 15 ML BTL EACH EYE SCH ×3 (09:00→18:00)
--- NOTE | 2017-02-04 10:51 | HHI.CCPN ---
Subjective Remarks/Hospital Course 71-year-old male presents for evaluation of testicular swelling. Approximately 10 days ago he was started on Aldactone for his blood pressure which. He also noted that her sugars has been slightly elevated. Denies any fevers. He has been feeling generally weak as well. Denied abdominal pain nausea vomiting or diarrhea. He thought the scrotal swelling was from the Aldactone and came into the emergency department to be evaluated. 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 remains intubated overnight. off vasopressors. 12/30: Much more comfortable. Back to OR for washout today. Breathing without distress. STEFFEN improving. Patient has dilated cardiomyopathy with severe systolic heart failure and EF 25-30% by last ECHO 2013. May need low-dose inotrope during course of therapy. 12/30 1800 hrs: Seen after OR today. He has full neck veins and light wheezes with basilar crackles. His underlying LV dysfunction requires that we treat this aggressively with diuretics and subsequent electrolyte replacement. Will move back to [facility]. 12/31: Required rapid response for 2nd time in 12 hours. Will need intubation due to severe systolic heart failure and pulmonary edema. 01/01: Afebrile. Remains nothing by mouth for planned washout today. Decreased urine output noted. Hypertensive with sedation vacation. 01/02: Yesterday with washout and debridement without complication. Continues to be in A. fib intermittently rate controlled. Hemodynamically stable. One bowel movement. Will try spontaneous breathing trials today and attempt to extubate. If unsuccessful will initiate tube feeding. 01/03: Tmax 99.2. Episode of desaturation overnight recording FiO2 100%. Currently back to 50%. Chest x-ray essentially stable. Small left pleural effusion. Low lung volumes. Remains in a flutter rate controlled. Imminently bradycardic. 3 bowel movements on 01/02. Tolerating tube feeding. 01/04: FiO2 currently at 50%. We'll check CT chest. Possible need pleural effusions. Remains in a flutter rate control. Intermittently bradycardic. No bowel movement yesterday. Tube feeds currently off for possible extubation but tolerating previously. Afebrile 01/05: Remains on FiO2 of 50%. CT chest revealed small bilateral pleural effusions otherwise unremarkable. Noted is currently rate controlled. No bowel movement. Tube feeds at goal. Afebrile. Intermittently follows commands. 01/06: FiO2 40%. Self extubated yesterday. Lasted about 20 Mr. for requiring intubation. Was on 100 percent nonrebreather. Saturations are 90%. During intubation, Ambu bag malfunctioned. Patient was quickly intubated and was arousable moving all 4 extremities prior to re-sedation. We'll attempt sedation vacation again today. 01/07: Remains ventilator dependent, failed extubation yesterday. Unable to wean today, weak. 01/08: Tolerating CPAP trials but unable to extubate. 01/09: Plan transfer to LTAC. 01/10: Continued improvement in renal function. Contraction alkalosis with diuresis. Will require LTAC. 01/11: Will need to get a fair amount of excess water off. Consider gtt. 01/11: Great response to bumex gtt. 01/13: Continue diuresis. Replete electrolytes. Reduce vent rate. 01/14: Diuresed 10 liters net balance. Replace lytes. Correct HCO3 with diamox. Wean vent. 01/15: Despite aggressive diuresis and clearing of CXR he does not tolerate extended SBTs. He will need a tracheostomy if family wishes to pursue aggressive care. 01/16: Serratia in sputum, afebrile. WBC 5600. CXR benign. 01/17: Needs trach for half-way weaning. Need to find family to consent. 01/18: Family has consented. Still fails weaning trials. Will perform trach. 01/19: Underwent percutaneous tracheostomy on 01/18. Remains on mechanical ventilation. 01/20: Remains on propofol for agitation. On mechanical ventilation via tracheostomy. Tolerating tube feeds. 01/22: off propofol. much less agitated today, but still some delirium and still CAM +. CPAP trials today. 01/23: more agitated today. very CAM +. still failing CPAP trials for tachycardia and agitation. 01/24: much more improved today. follows commands. less delirious. 01/25: mentation continues to improve. still CAM -. follows commands. OOB to chair today. 01/26: continues to do well. mentation continues to clear. OOB to chair daily. still awaiting placement. still weaning from vent, but slow given deconditioned state. 01/27: Failed SBT due to tachycardia and tachypnea in am, tolerates CPAP with high PS. Following commands. Awaiting placement 01/28: Tachypneic and tachycardic on CPAP, intermittently agitated. Intermittent wheezing on exam. Denied placement by [employer] due to no PEG tube/or definitive feeding tube 01/29: Calmer today, tolerating CPAP with PS 15. CXR shows unchanged pulm edema and LLL consolidation. BUN creat increased from 33/1.1 to 63/1.7 Lasix held. GI unable to get consent for PEG placement at this time 01/30: Resting comfortably on vent. Failed CPAP today. Follows commands. Consent obtained for PEG today. Creat 1.7, stable. UO adequate SUBJECTIVE 01/31/17: Status post PEG tube placement. Sedated from procedural anesthesia. Tolerating CPAP. UO 1.2 L in 24 hours 02/01/17: Tolerating CPAP less agitated. Creatinine is improved, sodium down to 147. Urine output remains adequate 02/02/17: Nighttime RN reports some foul-smelling output from the PEG tube. Also had to be put back on full ventilatory support due to respiratory distress. Chest x-ray improving. Dr. Josemanuel CHAMBERS will be informed about the PEG tube. Keep nothing by mouth for now 02/03: On full vent support. Breathing comfortably. Awaiting transfer to LTAC when bed available. tolerating tube feeds today. 02/04: No material changes. Sputum colonized - no fever or leukocytosis. Ready for LTAC anytime. Objective Vital Signs Date Time Temp Pulse Resp B/P Pulse Ox O2 Delivery O2 Flow Rate FiO2 02/04/17 10:00 82 02/04/17 08:00 99.5 17 168/92 98 02/04/17 08:00 50 02/04/17 07:00 Mechanical Ventilator 02/01/17 09:51 4.00 Intake and Output 02/03/17 02/03/17 02/04/17 08:00 16:00 00:00 Intake Total 647 ml 575 ml 424 ml Output Total 200 ml 180 ml 674 ml Balance 447 ml 395 ml -250 ml Result Diagram: 02/04/17 0247 02/04/17 0247 Imaging Last Impressions Chest X-Ray 01/06/17 0600 Signed Impressions: Service Date/Time: Friday, January 06, 2017 04:21 - CONCLUSION: Cardiomegaly with bilateral pleural effusions and bibasilar infiltrates. The radiographic pattern is most consistent with pulmonary edema. Sushil Abdi Jr., MD Abdomen X-Ray 01/05/17 0000 Signed Impressions: Service Date/Time: Thursday, January 05, 2017 07:23 - CONCLUSION: Nasogastric tube across the GE junction with minimal gaseous distention. Aba Dick MD FACR Chest CT 01/04/17 0000 Signed Impressions: Service Date/Time: Wednesday, January 04, 2017 12:03 - CONCLUSION: 1. Consolidative changes with small bilateral pleural effusions in both bases. 2. Extensive coronary artery calcifications. Aba Dick MD FACR Renal Ultrasound 01/01/17 0000 Signed Impressions: Service Date/Time: Sunday, January 01, 2017 09:12 - CONCLUSION: Normal examination. Sushil Abdi Jr., MD Scrotum Ultrasound 12/28/16 1246 Signed Impressions: Service Date/Time: Wednesday, December 28, 2016 14:05 - CONCLUSION: 1. Marked thickening of the scrotal wall, up to 2.4 cm on the right. 2. Small complex left hydrocele. 3. Small complex cysts right testicle. Positive testicular blood flow. Nael Scott MD Abdomen/Pelvis CT 12/28/16 1237 Signed Impressions: Service Date/Time: Wednesday, December 28, 2016 14:52 - CONCLUSION: 1. 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 2. Mild bilateral inguinal adenopathy and marked scrotal wall thickening. 3. Fat-containing 5.7 cm umbilical hernia. 4. Atherosclerotic aorta with some displaced intimal calcifications but without significant aneurysm. No bowel obstruction. Mild ileus. Nael Scott MD Objective Remarks GENERAL: 71-year-old male, on vent. Wide awake appears comfortable on vent SKIN: Warm and dry. HEAD: Normocephalic. EYES: Pupils are 2 mm bilaterally and reactive. NECK: Tracheostomy in place, no bleeding CARDIOVASCULAR: Irreg Irreg. Intermittently paced. RESPIRATORY: large amount of secretion. on PRVC/AC GASTROINTESTINAL: Abdomen soft, non-tender, obese. MUSCULOSKELETAL: Currently with trace to 1+ bilateral lower extremity pitting edema. Foot pulses palpable. NEURO: Moves all 4 extremities spontaneously. Follows commands. 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 Acute toxic metabolic encephalopathy- resolved. Posttraumatic stress disorder, Depression/anxiety Current regimen for agitation: Seroquel 100mg po q8hr. Haldol 5mg iv q4h prn for breakthrough agitation Melatonin 5mg po qhs for sleep Provigil 200mg po daily. Tizanidine 2mg po q12h. Not on home medications for underlying psychiatric diagnosis. Current regimen will be continued as patient is calmer and cooperative on this regimen, he has underlying PTSD CV: Congestive heart failure/systolic ejection fraction 25% 2013 Limited echo EF 35-40% with akinesis apical myocardium History of CABG 4 Hypertension Dyslipidemia History of single-chamber defibrillator 08/19 due to positive EPS study Continue Lipitor 40 mg by mouth daily/home medication for dyslipidemia On Coreg 25 mg q12h. Continue hydralazine 25mg three times a day/Isordil 10 every 8 as adjuvant while creatinine elevated. Holding valsartan Milrinone was discontinued 01/01 due to dysrhythmias Echo 2013 - EF 25-30%. No RWMA. Left atrium dilated. Limited echo 2016 reveals EF 35-40%. Akinesis apical myocardium. Holding Lasix 40 mg daily. Resumed Aldactone today 02/02/17. Check BMP Free water replacement 200 ml q6 Resp: Acute hypoxemic respiratory failure Ongoing tobaccoism Daily SBTs. working on pulmonary strengthening with CPAP as tolerated, with high PS Ventilator bundle. Status post tracheostomy 01/18 Bronchodilator therapy every 4 hours and as needed Secretions worsening-send sputum cx. No Abx Unable to wean off vent, need LTAC GI: Gastroesophageal reflux disease 5.7 cm umbilical hernia Glucerna 1.5 goal 55 cc an hour Pepcid 10 mg twice a day for GI prophylaxis. On Prilosec 20 mg by mouth daily at home Colace/senna twice a day for bowel regimen Levemir bid s/p PEG tube placement 01/31/17. tolerating tube feeds : Becca's gangrene BPH Postop for Becca's gangrene/ necrotizing fasciitis posterior scrotum, perineum and right perirectal tissue Postop washout and debridement for his gangrene Postoperative washout and debridement. 12/28 revealed gas in his perineum/scrotum and the right gluteal cleft. Followed by urology/Dr. Ling Endo: Diabetes mellitus Gout Sliding scale insulin with Accu-Cheks every 6 hours to maintain euglycemia. Levemir 5 BID Holding Tanzeum 50 mg subcutaneous weekly. Holding allopurinol 200 mg by mouth daily for gout Renal: Acute kidney injury-improving Initial CT revealed no signs of hydronephrosis. Urine eosinophils negative. Renal ultrasound revealed no hydronephrosis No indications for hemodialysis at this point. Creat slightly increased and Lasix Aldactone held, now improving. Resumed Aldactone 12.5 mg daily 02/02. Check CMP today Heme: Normocytic anemia Leukocytosis Daily CBC. Monitor trends Transfused 2 units PRBCs during this hospital stay. No current indication for transfusion of blood at this time. ID: Becca's gangrene Group A beta strep UTI Unasyn 1.5 IV every 6 hours stopped 01/16 (switched to Rocephin per ID) Clindamycin 300 mg by mouth every 6 hours completed 01/02 Rocephin 2gm IV daily 01/16, stop date 01/29 Pertinent cultures Sputum 01/14 - Serratia Sputum - 12/31 -no growth Abdomen abscess - 12/28 - Escherichia coli, E faecalis and coag negative staph Abdomen abscess - 12/28 - acid-fast bacilli/fungus negative Blood cultures 2 - 12/28 - no growth Urine culture - 12/28 -group A beta strep Sputum cx 02/02-P Infectious disease signed off abx stopped 01/29 FEN: Hyper-magnesium Hypokalemia - resolved Hypernatremia Replace electrolytes as clinically indicated MSK: PT/OT evaluate and treat Access - Right IJ CVL day placed 12/31 -> d/c - Left radial arterial line day placed 12/31 -> d/c - Left IJ CVL d/c 01/21 Prophylaxis - GI - Pepcid - DVT - SCD/heparin subcutaneous resumed 02/02 (held for PEG) Overall impression: Remains very weak, restricted by chronic poor cardiac function. s/p tracheostomy. Son reasserts full code status for patient. Insurance requires 21 days on vent and 7 days post-trach, 4 days post PEG in order to approve LTAC. Hopefully transfer soon when bed available. No changes today. Roshan Carlos MD February 04, 2017 10:51
[2017-02-04] MEDS: FREE WATER NG SCH ×4 (12:00→23:34)
[2017-02-04] MEDS: QUEtiapine FUMARATE 100 MG TAB PO SCH ×2 (13:41→21:04)
[2017-02-04] MEDS: hydrALAZINE HCL 25 MG TAB PO SCH ×2 (13:41→21:04)
[2017-02-04] MEDS: ISOSORBIDE DINITRATE 10 MG TAB PO SCH ×2 (13:41→21:04)
[2017-02-04] MEDS: HEPARIN SODIUM - SQ 10,000 UNITS/ML VIAL SQ SCH ×2 (13:42→21:06)
[2017-02-04] MEDS: ATORVASTATIN 40 MG TAB PO SCH (21:04)
[2017-02-04] MEDS: MELATONIN 5 MG TAB PO SCH (21:04)
[2017-02-05] VITALS (18 sets, daily range): BP systolic 120–145; BP diastolic 69–84; PULSE 73–104; RESP 20–24; TEMP 98.3–99.8; O2SAT 96–100
[2017-02-05] MEDS: INSULIN NovoLIN REGULAR SUPPLEMENTAL SCALE SQ SCH ×5 (01:04→20:00)
[2017-02-05] MEDS: CHLORHEXIDINE GLUCONATE 2 % 1 PACK (2 CLOTHS) TOP SCH (04:00)
[2017-02-05] MEDS: FREE WATER NG SCH ×3 (05:56→13:24)
[2017-02-05] MEDS: hydrALAZINE HCL 25 MG TAB PO SCH ×3 (06:05→21:56)
[2017-02-05] MEDS: ISOSORBIDE DINITRATE 10 MG TAB PO SCH ×3 (06:05→21:56)
[2017-02-05] MEDS: QUEtiapine FUMARATE 100 MG TAB PO SCH ×3 (06:05→21:56)
[2017-02-05] MEDS: HEPARIN SODIUM - SQ 10,000 UNITS/ML VIAL SQ SCH ×3 (06:06→21:55)
[2017-02-05] MEDS: RESP: BUDESONIDE 0.5 MG/2 ML NEB NEB SCH ×2 (08:15→20:29)
[2017-02-05] MEDS: RESP: ALBUTEROL 2.5 MG/IPRATROPIUM 0.5 MG NEB (PRN) INH ×2 (08:15→20:29)
--- NOTE | 2017-02-05 09:20 | HHI.CCPN ---
Subjective Remarks/Hospital Course 71-year-old male presents for evaluation of testicular swelling. Approximately 10 days ago he was started on Aldactone for his blood pressure which. He also noted that her sugars has been slightly elevated. Denies any fevers. He has been feeling generally weak as well. Denied abdominal pain nausea vomiting or diarrhea. He thought the scrotal swelling was from the Aldactone and came into the emergency department to be evaluated. 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 remains intubated overnight. off vasopressors. 12/30: Much more comfortable. Back to OR for washout today. Breathing without distress. STEFFEN improving. Patient has dilated cardiomyopathy with severe systolic heart failure and EF 25-30% by last ECHO 2013. May need low-dose inotrope during course of therapy. 12/30 1800 hrs: Seen after OR today. He has full neck veins and light wheezes with basilar crackles. His underlying LV dysfunction requires that we treat this aggressively with diuretics and subsequent electrolyte replacement. Will move back to [facility]. 12/31: Required rapid response for 2nd time in 12 hours. Will need intubation due to severe systolic heart failure and pulmonary edema. 01/01: Afebrile. Remains nothing by mouth for planned washout today. Decreased urine output noted. Hypertensive with sedation vacation. 01/02: Yesterday with washout and debridement without complication. Continues to be in A. fib intermittently rate controlled. Hemodynamically stable. One bowel movement. Will try spontaneous breathing trials today and attempt to extubate. If unsuccessful will initiate tube feeding. 01/03: Tmax 99.2. Episode of desaturation overnight recording FiO2 100%. Currently back to 50%. Chest x-ray essentially stable. Small left pleural effusion. Low lung volumes. Remains in a flutter rate controlled. Imminently bradycardic. 3 bowel movements on 01/02. Tolerating tube feeding. 01/04: FiO2 currently at 50%. We'll check CT chest. Possible need pleural effusions. Remains in a flutter rate control. Intermittently bradycardic. No bowel movement yesterday. Tube feeds currently off for possible extubation but tolerating previously. Afebrile 01/05: Remains on FiO2 of 50%. CT chest revealed small bilateral pleural effusions otherwise unremarkable. Noted is currently rate controlled. No bowel movement. Tube feeds at goal. Afebrile. Intermittently follows commands. 01/06: FiO2 40%. Self extubated yesterday. Lasted about 20 Mr. for requiring intubation. Was on 100 percent nonrebreather. Saturations are 90%. During intubation, Ambu bag malfunctioned. Patient was quickly intubated and was arousable moving all 4 extremities prior to re-sedation. We'll attempt sedation vacation again today. 01/07: Remains ventilator dependent, failed extubation yesterday. Unable to wean today, weak. 01/08: Tolerating CPAP trials but unable to extubate. 01/09: Plan transfer to LTAC. 01/10: Continued improvement in renal function. Contraction alkalosis with diuresis. Will require LTAC. 01/11: Will need to get a fair amount of excess water off. Consider gtt. 01/11: Great response to bumex gtt. 01/13: Continue diuresis. Replete electrolytes. Reduce vent rate. 01/14: Diuresed 10 liters net balance. Replace lytes. Correct HCO3 with diamox. Wean vent. 01/15: Despite aggressive diuresis and clearing of CXR he does not tolerate extended SBTs. He will need a tracheostomy if family wishes to pursue aggressive care. 01/16: Serratia in sputum, afebrile. WBC 5600. CXR benign. 01/17: Needs trach for detention weaning. Need to find family to consent. 01/18: Family has consented. Still fails weaning trials. Will perform trach. 01/19: Underwent percutaneous tracheostomy on 01/18. Remains on mechanical ventilation. 01/20: Remains on propofol for agitation. On mechanical ventilation via tracheostomy. Tolerating tube feeds. 01/22: off propofol. much less agitated today, but still some delirium and still CAM +. CPAP trials today. 01/23: more agitated today. very CAM +. still failing CPAP trials for tachycardia and agitation. 01/24: much more improved today. follows commands. less delirious. 01/25: mentation continues to improve. still CAM -. follows commands. OOB to chair today. 01/26: continues to do well. mentation continues to clear. OOB to chair daily. still awaiting placement. still weaning from vent, but slow given deconditioned state. 01/27: Failed SBT due to tachycardia and tachypnea in am, tolerates CPAP with high PS. Following commands. Awaiting placement 01/28: Tachypneic and tachycardic on CPAP, intermittently agitated. Intermittent wheezing on exam. Denied placement by [employer] due to no PEG tube/or definitive feeding tube 01/29: Calmer today, tolerating CPAP with PS 15. CXR shows unchanged pulm edema and LLL consolidation. BUN creat increased from 33/1.1 to 63/1.7 Lasix held. GI unable to get consent for PEG placement at this time 01/30: Resting comfortably on vent. Failed CPAP today. Follows commands. Consent obtained for PEG today. Creat 1.7, stable. UO adequate SUBJECTIVE 01/31/17: Status post PEG tube placement. Sedated from procedural anesthesia. Tolerating CPAP. UO 1.2 L in 24 hours 02/01/17: Tolerating CPAP less agitated. Creatinine is improved, sodium down to 147. Urine output remains adequate 02/02/17: Nighttime RN reports some foul-smelling output from the PEG tube. Also had to be put back on full ventilatory support due to respiratory distress. Chest x-ray improving. Dr. Josemanuel CHAMBERS will be informed about the PEG tube. Keep nothing by mouth for now 02/03: On full vent support. Breathing comfortably. Awaiting transfer to LTAC when bed available. tolerating tube feeds today. 02/04: No material changes. Sputum colonized - no fever or leukocytosis. Ready for LTAC anytime. 02/05: Airway colonized, no fevers. LTAC transfer anytime. Objective Vital Signs Date Time Temp Pulse Resp B/P Pulse Ox O2 Delivery O2 Flow Rate FiO2 02/05/17 08:16 100 50 02/05/17 06:00 85 02/05/17 04:00 99.0 21 144/71 02/04/17 19:00 Mechanical Ventilator 02/01/17 09:51 4.00 Intake and Output 02/04/17 02/04/17 02/05/17 08:00 16:00 00:00 Intake Total 1184 ml 557 ml 1072 ml Output Total 550 ml 200 ml 175 ml Balance 634 ml 357 ml 897 ml Result Diagram: 02/04/17 0247 02/04/17 0247 Imaging Last Impressions Chest X-Ray 01/06/17 0600 Signed Impressions: Service Date/Time: Friday, January 06, 2017 04:21 - CONCLUSION: Cardiomegaly with bilateral pleural effusions and bibasilar infiltrates. The radiographic pattern is most consistent with pulmonary edema. Sushil Abdi Jr., MD Abdomen X-Ray 01/05/17 0000 Signed Impressions: Service Date/Time: Thursday, January 05, 2017 07:23 - CONCLUSION: Nasogastric tube across the GE junction with minimal gaseous distention. Aba Dick MD FACR Chest CT 01/04/17 0000 Signed Impressions: Service Date/Time: Wednesday, January 04, 2017 12:03 - CONCLUSION: 1. Consolidative changes with small bilateral pleural effusions in both bases. 2. Extensive coronary artery calcifications. Aba Dick MD FACR Renal Ultrasound 01/01/17 0000 Signed Impressions: Service Date/Time: Sunday, January 01, 2017 09:12 - CONCLUSION: Normal examination. Sushil Abdi Jr., MD Scrotum Ultrasound 12/28/16 1246 Signed Impressions: Service Date/Time: Wednesday, December 28, 2016 14:05 - CONCLUSION: 1. Marked thickening of the scrotal wall, up to 2.4 cm on the right. 2. Small complex left hydrocele. 3. Small complex cysts right testicle. Positive testicular blood flow. Nael Scott MD Abdomen/Pelvis CT 12/28/16 1237 Signed Impressions: Service Date/Time: Wednesday, December 28, 2016 14:52 - CONCLUSION: 1. 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 2. Mild bilateral inguinal adenopathy and marked scrotal wall thickening. 3. Fat-containing 5.7 cm umbilical hernia. 4. Atherosclerotic aorta with some displaced intimal calcifications but without significant aneurysm. No bowel obstruction. Mild ileus. Nael Scott MD Objective Remarks GENERAL: 71-year-old male, on vent. SKIN: Warm and dry. HEAD: Normocephalic. EYES: Pupils are 2 mm bilaterally, reactive. NECK: Tracheostomy in place, no bleeding CARDIOVASCULAR: Irreg Irreg. Intermittently paced. RESPIRATORY: large amount of secretion. on PRVC/AC GASTROINTESTINAL: Abdomen soft, non-tender, obese. MUSCULOSKELETAL: Currently with trace to 1+ bilateral lower extremity, pitting edema. Foot pulses palpable. NEURO: Moves all 4 extremities spontaneously. Follows commands. 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 Acute toxic metabolic encephalopathy- resolved. Posttraumatic stress disorder, Depression/anxiety Current regimen for agitation: Seroquel 100mg po q8hr. Haldol 5mg iv q4h prn for breakthrough agitation Melatonin 5mg po qhs for sleep Provigil 200mg po daily. Tizanidine 2mg po q12h. Not on home medications for underlying psychiatric diagnosis. Current regimen will be continued as patient is calmer and cooperative on this regimen, he has underlying PTSD CV: Congestive heart failure/systolic ejection fraction 25% 2013 Limited echo EF 35-40% with akinesis apical myocardium History of CABG 4 Hypertension Dyslipidemia History of single-chamber defibrillator 08/19 due to positive EPS study Continue Lipitor 40 mg by mouth daily/home medication for dyslipidemia On Coreg 25 mg q12h. Continue hydralazine 25mg three times a day/Isordil 10 every 8 as adjuvant while creatinine elevated. Holding valsartan Milrinone was discontinued 01/01 due to dysrhythmias Echo 2013 - EF 25-30%. No RWMA. Left atrium dilated. Limited echo 2016 reveals EF 35-40%. Akinesis apical myocardium. Holding Lasix 40 mg daily. Resumed Aldactone today 02/02/17. Check BMP Free water replacement 200 ml q6 Resp: Acute hypoxemic respiratory failure Ongoing tobaccoism Daily SBTs. working on pulmonary strengthening with CPAP as tolerated, with high PS Ventilator bundle. Status post tracheostomy 01/18 Bronchodilator therapy every 4 hours and as needed Secretions worsening-send sputum cx. No Abx Unable to wean off vent, need LTAC GI: Gastroesophageal reflux disease 5.7 cm umbilical hernia Glucerna 1.5 goal 55 cc an hour Pepcid 10 mg twice a day for GI prophylaxis. On Prilosec 20 mg by mouth daily at home Colace/senna twice a day for bowel regimen Levemir bid s/p PEG tube placement 01/31/17. tolerating tube feeds : Becca's gangrene BPH Postop for Becca's gangrene/ necrotizing fasciitis posterior scrotum, perineum and right perirectal tissue Postop washout and debridement for his gangrene Postoperative washout and debridement. 12/28 revealed gas in his perineum/scrotum and the right gluteal cleft. Followed by urology/Dr. Ling Endo: Diabetes mellitus Gout Sliding scale insulin with Accu-Cheks every 6 hours to maintain euglycemia. Levemir 5 BID Holding Tanzeum 50 mg subcutaneous weekly. Holding allopurinol 200 mg by mouth daily for gout Renal: Acute kidney injury-improving Initial CT revealed no signs of hydronephrosis. Urine eosinophils negative. Renal ultrasound revealed no hydronephrosis No indications for hemodialysis at this point. Creat slightly increased and Lasix Aldactone held, now improving. Resumed Aldactone 12.5 mg daily 02/02. Check CMP today Heme: Normocytic anemia Leukocytosis Daily CBC. Monitor trends Transfused 2 units PRBCs during this hospital stay. No current indication for transfusion of blood at this time. ID: Becca's gangrene Group A beta strep UTI Unasyn 1.5 IV every 6 hours stopped 01/16 (switched to Rocephin per ID) Clindamycin 300 mg by mouth every 6 hours completed 01/02 Rocephin 2gm IV daily 01/16, stop date 01/29 Pertinent cultures Sputum 01/14 - Serratia Sputum - 12/31 -no growth Abdomen abscess - 12/28 - Escherichia coli, E faecalis and coag negative staph Abdomen abscess - 12/28 - acid-fast bacilli/fungus negative Blood cultures 2 - 12/28 - no growth Urine culture - 12/28 -group A beta strep Sputum cx 02/02-P Infectious disease signed off abx stopped 01/29 FEN: Hyper-magnesium Hypokalemia - resolved Hypernatremia Replace electrolytes as clinically indicated MSK: PT/OT evaluate and treat Access - Right IJ CVL day placed 12/31 -> d/c - Left radial arterial line day placed 12/31 -> d/c - Left IJ CVL d/c 01/21 Prophylaxis - GI - Pepcid - DVT - SCD/heparin subcutaneous resumed 02/02 (held for PEG) Overall impression: Remains very weak, restricted by chronic poor cardiac function. s/p tracheostomy. Son reasserts full code status for patient. Insurance requires 21 days on vent and 7 days post-trach, 4 days post PEG in order to approve LTAC. Hopefully transfer soon when bed available. No changes today. Roshan Carlos MD February 05, 2017 09:20
[2017-02-05] MEDS: SODIUM CHLORIDE 0.9% FLUSH 10 ML FLUSH SCH ×2 (09:34→20:19)
[2017-02-05] MEDS: CHLORHEXIDINE 0.12% (ORAL KIT) 15 ML CUP MT SCH ×2 (09:37→20:00)
[2017-02-05] MEDS: ARTIFICIAL TEARS OPTH SOLN 15 ML BTL EACH EYE SCH ×3 (09:37→15:59)
[2017-02-05] MEDS: MODAFINIL 200 MG TAB PO SCH (09:51)
[2017-02-05] MEDS: DOCUSATE SODIUM 100 MG/10 ML UDC G-TUBE SCH ×2 (09:51→20:26)
[2017-02-05] MEDS: CARVEDILOL 12.5 MG TAB PO SCH ×2 (09:51→20:26)
[2017-02-05] MEDS: FAMOTIDINE 20 MG TAB PO SCH ×2 (09:51→20:27)
[2017-02-05] MEDS: SENNOSIDES SYRUP 8.8 MG/5 ML CUP PO SCH ×2 (09:51→20:27)
[2017-02-05] MEDS: INSULIN DETEMIR 100 UNITS/ML VIAL SQ SCH ×2 (09:52→21:56)
[2017-02-05] MEDS: LABETALOL HCL 100 MG/20 ML VIAL IV PUSH PRN (17:25)
--- NOTE | 2017-02-05 18:46 | HHI.HCPN ---
Reason for visit a. To assist with evaluation and management of symptoms including: confusion; dyspnea; pain b. To assist medical decision maker(s) with: better understanding of current medical conditions; weighing benefits/burdens of medical treatment options; making medical treatment decisions. . Subjective/Interval History Mr. Mandel is awake and alert and trach to vent in the SICU. He denies pain at time of my visit. He can be understood with careful listening. He is clearly confused. He tells me he is going to "check out tomorrow" and that this he is going back to [place]. I ask him where he is now and he has no idea what town he is in. I ask him who the President is and he says, "Spencer Cisneros " His primary nurse reports that he is intermittently combative, but has been well behaved with her today. Nurse also reports that she tried a [id number] trial earlier today which he failed very quickly. Critical care has cleared patient for LTAC and we now await available bed. Tmax 99.8. Other VSS. On FI02 of 50%. Positive fluid balance of over 4L over past 3 days. WBC up to 11.2 on 02/04. Hg 7.3 on 02/04. GFR has fluctuated greatly between 32 and 60 since 01/30. Alb 2.1 on 02/04/17. Sputum cx from02/02/17 --> Serratia and Pseudomonas CXR 02/04/17 --> cardiomegaly with findings c/w CHF. . . Family/friend interactions Spoke with one of [facility] -- Dr. Marcelo Jackson. She was not aware of any advance directives. She felt the patient would want to be full code so that he could be alive to care for his mother. . Still no word from son, Dell. . Advance Directives Living Will: Never completed Health Care Surrogate: Never completed Durable Power of Yard Inspector: Never completed Advance Directive Specifics Date completed: According to the patient's family and the primary care physician it does not appear the patient has ever completed an advanced directive. . Health Care Surrogate(s): There has never been designation of a health care surrogate. Documented care wishes: There is never been written documentation of health care goals/preferences. . Objective Vital Signs Date Time Temp Pulse Resp B/P Pulse Ox O2 Delivery O2 Flow Rate FiO2 02/05/17 16:46 99 50 02/05/17 16:46 50 02/05/17 11:27 96 50 02/05/17 08:16 100 50 02/05/17 06:00 85 02/05/17 04:00 83 02/05/17 04:00 50 02/05/17 04:00 99.0 78 21 144/71 98 02/05/17 03:32 98 60 02/05/17 02:00 73 02/05/17 00:01 100 60 02/05/17 00:00 73 02/05/17 00:00 50 02/05/17 00:00 99.8 77 20 120/69 99 02/04/17 22:00 76 02/04/17 20:02 96 60 02/04/17 20:00 99.0 97 25 110/72 97 02/04/17 20:00 50 02/04/17 20:00 76 02/04/17 19:00 99 Mechanical Ventilator 60 Intake & Output 02/05/17 02/05/17 07:00 19:00 Intake Total 2293 ml Output Total 325 ml Balance 1968 ml IV Total 1065 ml Tube Feeding 937 ml Autotransfusion 291 ml Output Urine Total 325 ml . Physical Exam CONSTITUTIONAL/GENERAL: This is an adequately nourished patient, in no apparent distress. Awake, understandable in spite of being on trach, but confused. TUBES/LINES/DRAINS: Peripheral IVs; Trach; rectal tube; Capps catheter; PEG; soft wrist restraints; SCDs SKIN: No jaundice, rashes, or lesions. There is a clean dry dressing over the surgical wound. The wound was not examined by me. Skin temperature appropriate. Not diaphoretic. EYES: Pupils equal and round. Extraocular movements intact. No scleral icterus. No injection or drainage. Fundi not examined. ENT: Seems to have adequate hearing. Nose without bleeding or purulent drainage. Oropharynx with dry mucous membranes. CARDIOVASCULAR: Irregular rhythm without murmurs, gallops, or rubs. No JVD. RESPIRATORY/CHEST: Symmetric, unlabored respirations. Breath sounds equal bilaterally. Coarse breath sounds. No wheezes, rales. GASTROINTESTINAL: Abdomen obese, soft, non-tender, nondistended. No hepato- splenomegaly, or palpable masses. No guarding. Bowel sounds present. GENITOURINARY: Without palpable bladder distension. Capps catheter in place. Wounds are covered by dressings MUSCULOSKELETAL: Extremities without clubbing, cyanosis. NEUROLOGICAL: Awake, alert, speaks understandably in spite of trach. Confused. Moves all extremities. PSYCHIATRIC: No obvious hallucinations. No obvious depression/anxiety. . Diagnostic Tests Laboratory Laboratory Tests Test 02/03/17 02/04/17 15:30 02:47 Sodium Level 142 MEQ/L 142 MEQ/L (136-145) (136-145) Potassium Level 4.1 MEQ/L 4.2 MEQ/L (3.5-5.1) (3.5-5.1) Chloride Level 103 MEQ/L 103 MEQ/L (98-107) (98-107) Carbon Dioxide Level 31.2 MEQ/L 30.6 MEQ/L (21.0-32.0) (21.0-32.0) Anion Gap 8 MEQ/L (5-15) 8 MEQ/L (5-15) Blood Urea Nitrogen 53 MG/DL (7-18) 58 MG/DL (7-18) Creatinine 2.08 MG/DL 1.82 MG/DL (0.60-1.30) (0.60-1.30) Estimat Glomerular Filtration 32 ML/MIN (>89) 37 ML/MIN (>89) Rate Random Glucose 177 MG/DL 152 MG/DL (74-106) (74-106) Calcium Level 8.4 MG/DL 8.5 MG/DL (8.5-10.1) (8.5-10.1) White Blood Count 11.2 TH/MM3 (4.0-11.0) Red Blood Count 2.52 MIL/MM3 (4.50-5.90) Hemoglobin 7.3 GM/DL (13.0-17.0) Hematocrit 22.5 % (39.0-51.0) Mean Corpuscular Volume 89.5 FL (80.0-100.0) Mean Corpuscular Hemoglobin 29.1 PG (27.0-34.0) Mean Corpuscular Hemoglobin 32.6 % Concent (32.0-36.0) Red Cell Distribution Width 24.0 % (11.6-17.2) Platelet Count 233 TH/MM3 (150-450) Mean Platelet Volume 8.7 FL (7.0-11.0) Neutrophils (%) (Auto) 82.2 % (16.0-70.0) Lymphocytes (%) (Auto) 11.8 % (9.0-44.0) Monocytes (%) (Auto) 4.9 % (0.0-8.0) Eosinophils (%) (Auto) 0.7 % (0.0-4.0) Basophils (%) (Auto) 0.4 % (0.0-2.0) Neutrophils # (Auto) 9.2 TH/MM3 (1.8-7.7) Lymphocytes # (Auto) 1.3 TH/MM3 (1.0-4.8) Monocytes # (Auto) 0.5 TH/MM3 (0-0.9) Eosinophils # (Auto) 0.1 TH/MM3 (0-0.4) Basophils # (Auto) 0.0 TH/MM3 (0-0.2) CBC Comment DIFF FINAL Differential Comment Magnesium Level 2.7 MG/DL (1.5-2.5) Total Bilirubin 0.4 MG/DL (0.2-1.0) Aspartate Amino Transf 32 U/L (15-37) (AST/SGOT) Alanine Aminotransferase 27 U/L (12-78) (ALT/SGPT) Alkaline Phosphatase 145 U/L (45-117) Total Protein 6.8 GM/DL (6.4-8.2) Albumin 2.1 GM/DL (3.4-5.0) . Result Diagram: 02/04/17 0247 02/04/17 0247 Microbiology Microbiology Date/Time Procedure Status Source Growth 02/02/17 15:00 Gram Stain - Final Resulted Sputum Endotracheal 02/02/17 15:00 Sputum Culture - Preliminary Resulted Serratia Marcescens Pseudomonas Aeruginosa . Imaging Last Impressions Chest X-Ray 02/04/17 0600 Signed Impressions: Service Date/Time: Saturday, February 04, 2017 04:33 - CONCLUSION: 1. Cardiomegaly and findings of congestive heart failure. Bony mineralization is normal. Aman French MD Abdomen X-Ray 01/05/17 0000 Signed Impressions: Service Date/Time: Thursday, January 05, 2017 07:23 - CONCLUSION: Nasogastric tube across the GE junction with minimal gaseous distention. Aba Dick MD FACR Chest CT 01/04/17 0000 Signed Impressions: Service Date/Time: Wednesday, January 04, 2017 12:03 - CONCLUSION: 1. Consolidative changes with small bilateral pleural effusions in both bases. 2. Extensive coronary artery calcifications. Aba Dick MD FACR Renal Ultrasound 01/01/17 0000 Signed Impressions: Service Date/Time: Sunday, January 01, 2017 09:12 - CONCLUSION: Normal examination. Sushil Abdi Jr., MD Scrotum Ultrasound 12/28/16 1246 Signed Impressions: Service Date/Time: Wednesday, December 28, 2016 14:05 - CONCLUSION: 1. Marked thickening of the scrotal wall, up to 2.4 cm on the right. 2. Small complex left hydrocele. 3. Small complex cysts right testicle. Positive testicular blood flow. Nael Scott MD Abdomen/Pelvis CT 12/28/16 1237 Signed Impressions: Service Date/Time: Wednesday, December 28, 2016 14:52 - CONCLUSION: 1. 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 2. Mild bilateral inguinal adenopathy and marked scrotal wall thickening. 3. Fat-containing 5.7 cm umbilical hernia. 4. Atherosclerotic aorta with some displaced intimal calcifications but without significant aneurysm. No bowel obstruction. Mild ileus. Nael Scott MD . Procedures * Central line placement. * I&D scrotal/perineal wound * Washout and debridement of wound * Intubation/mechanical ventilation * TRACHEOSTOMY 01/18/17 . Assessment and Plan Disease Oriented Problem List: (1) Becca gangrene (2) Necrotizing fasciitis (3) Sepsis (4) Congestive heart failure Comment: EF 35 - 40% on Echo 01/01/17 . (5) STEFFEN (acute kidney injury) (6) Atrial flutter (7) Hospital-acquired pneumonia Comment: Sputum grew out Serratia on 01/14/17 . (8) Coronary artery disease (9) Diabetes mellitus (10) Neuropathy Comment: Probably from his DM . (11) GERD (gastroesophageal reflux disease) (12) Hypertension (13) Obesity (14) PTSD (post-traumatic stress disorder) (15) History of colonic polyps (16) B12 deficiency (17) Agent orange exposure (18) AICD (automatic cardioverter/defibrillator) present (19) S/P CABG x 3 Symptom Scale: (1) Pain 0-10 Scale: Unable to quantify Comment: Unclear if patient had any significant pain prior to development of his abscess. No known use of opiate analgesics. Possible current sources of pain would include prolonged bedbound status; rectal tube; Capps catheter; soft restraints; vascular access lines; tradcheostomy . . (2) Dyspnea 0-10 Scale: Unable to quantify Comment: Patient's dyspnea probably secondary to a combination of congestive heart failure and pneumonia. . (3) Encephalopathy 0-10 Scale: Unable to quantify Comment: Remains confused. . Pertinent Non-Medical Issues Psychosocial: Patient has a mother and stepfather who live locally. Patient's mother is currently enrolled with hospice and reportedly has significant dementia. The patient has one surviving brother, but he reportedly has a head injury and dementia. There is a sonNeil-- who, according to the stepfather, is having lots of legal troubles and is difficult to contact at times. Spiritual: Buddhism and spirituality have not played an important role in the patient's life. Legal: No known advance directives. The patient's mother reportedly has significant dementia, and the patient's son is now functioning as the decision making proxy (although he is difficult to reach) Ethical issues impacting care: Patient is currently incapacitated to make his own health care decisions. It remains feasible that we can improve things enough to have him regain capacity. . Important Contacts * Anahi Mandel (mother ) [phone] * Camden White (stepfater) [phone] * Dell Mandel (son) : [phone] <--- DECISION-MAKER - 01/20/17 . Prognosis Mr. Mandel is on 100% disability for combination of his physical and mental health issues. He was driving and taking care of his ADLs and walking without any type of assistive device until this recent episode. The patient has a number of significant comorbidities. He has coronary artery disease status post CABG in 2012 and an ejection fraction of 40% with a history of congestive heart failure. He has diabetes, obesity, and is a long-term smoker. His decompensated heart failure seems to be the most prominent problem preventing him from improving here in the hospital. The dredge engineer believes that although ICU and hospital survival remain possible for this individual, it will be a lengthy, slow road to recovery. He will remain vulnerable to infections and other major setbacks from his deconditioning and poor nutritional state. . . Code Status: Full Code Plan * FULL CODE * DECISION-MAKING: The patient lacks capacity for making health care decisions , but he is now more awake and it is possible he will regain that capacity. As there is no legal spouse, the patient's adult childNeilis the proxy decision -maker; however, he is difficult to reach and often does not answer his phone. He has been here to visit his father and to provide consent for trach. The patient's mother reportedly has significant dementia and disorientation/ confusion, and the patient's brother reportedly has experienced a head injury and dementia. Palliative care has yet to be able to have a sit-down conversation with the son. * GOALS: the patient is unable to directly state his goals and we have no written documentation of any living will or other advanced directive. The patient's son Dell is acting as the decision making proxy now, having recently given consent for tracheostomy, and aggressive goals are being pursued.....pending a [id number] meeting with Dell eventually... * SYMPTOMS: PAIN -- the patient has orders for IV hydromorphone and enteral oxycodone but is needing it rarely. Possible sources of pain noted above. No further recommendations at this time. * ENCEPHALOPATHY -- likely multifactorial, possibly some hypoactive delirium. Nurses report he is intermittently combative. It would be nice to taper down quetiapine, but this will be challenging while he still has periods of combativeness. Whenever he begins to appear more cooperative , would try a slow taper of the neuroleptic. * Dyspnea: Managed by vent support. No further recommendations at this time. * Disposition: Awaiting bed in LTAC. * Palliative care will continue to follow to assist with symptom management and to further clarify goals of medical treatment as the clinical course evolves. . Attestation To help prompt me to consider important information that might be impacting today's encounter and assessment, information from prior notes written by myself or my colleagues may have been "brought forward" into today's note. My signature on this note, however, is an attestation that I personally performed the exam, history, and/or decision-making noted today, and, unless otherwise indicated, the interactions with patient, family, and staff as well as the review of records all occurred today. I also attest that the listed assessment and stated plan reflect my best clinical judgment today based on the combination of historical information, prior notes, and today's exam/ interactions. When time spent is documented, it refers only to time spent today by the signer, or if indicated, combined time spent today by collaborating physician/nurse practitioner. . Manny Gutierrez MD February 05, 2017 18:46
[2017-02-05] MEDS: ATORVASTATIN 40 MG TAB PO SCH (20:27)
[2017-02-05] MEDS: MELATONIN 5 MG TAB PO SCH (20:27)
[2017-02-05] MEDS: COLLAGENASE OINT 30 GM TUBE TOPICAL SCH (21:56)
[2017-02-06] VITALS (12 sets, daily range): BP systolic 137–171; BP diastolic 81–92; PULSE 76–92; RESP 18–23; TEMP 98.4–98.8; O2SAT 95–100
[2017-02-06] MEDS: INSULIN NovoLIN REGULAR SUPPLEMENTAL SCALE SQ SCH ×3 (01:37→14:30)
[2017-02-06] MEDS: CHLORHEXIDINE GLUCONATE 2 % 1 PACK (2 CLOTHS) TOP SCH (04:00)
[2017-02-06] MEDS: LABETALOL HCL 100 MG/20 ML VIAL IV PUSH PRN (04:37)
[2017-02-06 04:50] LABS: BICARBONATE 31.2 MEQ/L (21.0-32.0); POTASSIUM 4.8 MEQ/L (3.5-5.1)
[2017-02-06] MEDS: FREE WATER NG SCH ×3 (05:29→12:00)
[2017-02-06] MEDS: ISOSORBIDE DINITRATE 10 MG TAB PO SCH ×2 (05:29→15:06)
[2017-02-06] MEDS: QUEtiapine FUMARATE 100 MG TAB PO SCH ×2 (05:29→15:08)
[2017-02-06] MEDS: HEPARIN SODIUM - SQ 10,000 UNITS/ML VIAL SQ SCH ×2 (05:29→15:05)
[2017-02-06] MEDS: hydrALAZINE HCL 25 MG TAB PO SCH ×2 (05:29→15:06)
[2017-02-06 07:14] LABS: MEAN CELL VOLUME 91.4 FL (80.0-100.0); MEAN CORPUSCULAR HGB CONC 31.7 % (32.0-36.0); PLATELET COUNT 232 TH/MM3 (150-450); RED BLOOD COUNT 2.38 MIL/MM3 (4.50-5.90); RED CELL DISTRIBUTION WIDTH 25.7 % (11.6-17.2); WHITE BLOOD COUNT 8.6 TH/MM3 (4.0-11.0)
[2017-02-06 07:18] LABS: REVIEW FLAG FINAL
[2017-02-06 07:20] LABS: HEMATOCRIT 21.8 % (39.0-51.0)
--- NOTE | 2017-02-06 07:28 | HHI.CCPN ---
Subjective Remarks/Hospital Course 71-year-old male presents for evaluation of testicular swelling. Approximately 10 days ago he was started on Aldactone for his blood pressure which. He also noted that her sugars has been slightly elevated. Denies any fevers. He has been feeling generally weak as well. Denied abdominal pain nausea vomiting or diarrhea. He thought the scrotal swelling was from the Aldactone and came into the emergency department to be evaluated. 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 remains intubated overnight. off vasopressors. 12/30: Much more comfortable. Back to OR for washout today. Breathing without distress. STEFFEN improving. Patient has dilated cardiomyopathy with severe systolic heart failure and EF 25-30% by last ECHO 2013. May need low-dose inotrope during course of therapy. 12/30 1800 hrs: Seen after OR today. He has full neck veins and light wheezes with basilar crackles. His underlying LV dysfunction requires that we treat this aggressively with diuretics and subsequent electrolyte replacement. Will move back to [facility]. 12/31: Required rapid response for 2nd time in 12 hours. Will need intubation due to severe systolic heart failure and pulmonary edema. 01/01: Afebrile. Remains nothing by mouth for planned washout today. Decreased urine output noted. Hypertensive with sedation vacation. 01/02: Yesterday with washout and debridement without complication. Continues to be in A. fib intermittently rate controlled. Hemodynamically stable. One bowel movement. Will try spontaneous breathing trials today and attempt to extubate. If unsuccessful will initiate tube feeding. 01/03: Tmax 99.2. Episode of desaturation overnight recording FiO2 100%. Currently back to 50%. Chest x-ray essentially stable. Small left pleural effusion. Low lung volumes. Remains in a flutter rate controlled. Imminently bradycardic. 3 bowel movements on 01/02. Tolerating tube feeding. 01/04: FiO2 currently at 50%. We'll check CT chest. Possible need pleural effusions. Remains in a flutter rate control. Intermittently bradycardic. No bowel movement yesterday. Tube feeds currently off for possible extubation but tolerating previously. Afebrile 01/05: Remains on FiO2 of 50%. CT chest revealed small bilateral pleural effusions otherwise unremarkable. Noted is currently rate controlled. No bowel movement. Tube feeds at goal. Afebrile. Intermittently follows commands. 01/06: FiO2 40%. Self extubated yesterday. Lasted about 20 Mr. for requiring intubation. Was on 100 percent nonrebreather. Saturations are 90%. During intubation, Ambu bag malfunctioned. Patient was quickly intubated and was arousable moving all 4 extremities prior to re-sedation. We'll attempt sedation vacation again today. 01/07: Remains ventilator dependent, failed extubation yesterday. Unable to wean today, weak. 01/08: Tolerating CPAP trials but unable to extubate. 01/09: Plan transfer to LTAC. 01/10: Continued improvement in renal function. Contraction alkalosis with diuresis. Will require LTAC. 01/11: Will need to get a fair amount of excess water off. Consider gtt. 01/11: Great response to bumex gtt. 01/13: Continue diuresis. Replete electrolytes. Reduce vent rate. 01/14: Diuresed 10 liters net balance. Replace lytes. Correct HCO3 with diamox. Wean vent. 01/15: Despite aggressive diuresis and clearing of CXR he does not tolerate extended SBTs. He will need a tracheostomy if family wishes to pursue aggressive care. 01/16: Serratia in sputum, afebrile. WBC 5600. CXR benign. 01/17: Needs trach for senior living weaning. Need to find family to consent. 01/18: Family has consented. Still fails weaning trials. Will perform trach. 01/19: Underwent percutaneous tracheostomy on 01/18. Remains on mechanical ventilation. 01/20: Remains on propofol for agitation. On mechanical ventilation via tracheostomy. Tolerating tube feeds. 01/22: off propofol. much less agitated today, but still some delirium and still CAM +. CPAP trials today. 01/23: more agitated today. very CAM +. still failing CPAP trials for tachycardia and agitation. 01/24: much more improved today. follows commands. less delirious. 01/25: mentation continues to improve. still CAM -. follows commands. OOB to chair today. 01/26: continues to do well. mentation continues to clear. OOB to chair daily. still awaiting placement. still weaning from vent, but slow given deconditioned state. 01/27: Failed SBT due to tachycardia and tachypnea in am, tolerates CPAP with high PS. Following commands. Awaiting placement 01/28: Tachypneic and tachycardic on CPAP, intermittently agitated. Intermittent wheezing on exam. Denied placement by [employer] due to no PEG tube/or definitive feeding tube 01/29: Calmer today, tolerating CPAP with PS 15. CXR shows unchanged pulm edema and LLL consolidation. BUN creat increased from 33/1.1 to 63/1.7 Lasix held. GI unable to get consent for PEG placement at this time 01/30: Resting comfortably on vent. Failed CPAP today. Follows commands. Consent obtained for PEG today. Creat 1.7, stable. UO adequate SUBJECTIVE 01/31/17: Status post PEG tube placement. Sedated from procedural anesthesia. Tolerating CPAP. UO 1.2 L in 24 hours 02/01/17: Tolerating CPAP less agitated. Creatinine is improved, sodium down to 147. Urine output remains adequate 02/02/17: Nighttime RN reports some foul-smelling output from the PEG tube. Also had to be put back on full ventilatory support due to respiratory distress. Chest x-ray improving. Dr. Josemanuel CHAMBERS will be informed about the PEG tube. Keep nothing by mouth for now 02/03: On full vent support. Breathing comfortably. Awaiting transfer to LTAC when bed available. tolerating tube feeds today. 02/04: No material changes. Sputum colonized - no fever or leukocytosis. Ready for LTAC anytime. 02/05: Airway colonized, no fevers. LTAC transfer anytime. 02/06: Moderate anemia, will transfuse. Renal function improving. Ready for LTAC. Objective Vital Signs Date Time Temp Pulse Resp B/P Pulse Ox O2 Delivery O2 Flow Rate FiO2 02/06/17 06:00 87 02/06/17 04:00 45 02/06/17 04:00 98.7 23 171/92 97 02/05/17 19:00 Mechanical Ventilator Intake and Output 02/05/17 02/05/17 02/06/17 08:00 16:00 00:00 Intake Total 1221 ml 1529 ml 773 ml Output Total 150.0 ml 300 ml 275 ml Balance 1071.0 ml 1229 ml 498 ml Result Diagram: 02/06/17 0306 02/06/17 0306 Imaging Last Impressions Chest X-Ray 01/06/17 0600 Signed Impressions: Service Date/Time: Friday, January 06, 2017 04:21 - CONCLUSION: Cardiomegaly with bilateral pleural effusions and bibasilar infiltrates. The radiographic pattern is most consistent with pulmonary edema. Sushil Abdi Jr., MD Abdomen X-Ray 01/05/17 0000 Signed Impressions: Service Date/Time: Thursday, January 05, 2017 07:23 - CONCLUSION: Nasogastric tube across the GE junction with minimal gaseous distention. Aba Dick MD FACR Chest CT 01/04/17 0000 Signed Impressions: Service Date/Time: Wednesday, January 04, 2017 12:03 - CONCLUSION: 1. Consolidative changes with small bilateral pleural effusions in both bases. 2. Extensive coronary artery calcifications. Aba Dick MD FACR Renal Ultrasound 01/01/17 0000 Signed Impressions: Service Date/Time: Sunday, January 01, 2017 09:12 - CONCLUSION: Normal examination. Sushil Abdi Jr., MD Scrotum Ultrasound 12/28/16 1246 Signed Impressions: Service Date/Time: Wednesday, December 28, 2016 14:05 - CONCLUSION: 1. Marked thickening of the scrotal wall, up to 2.4 cm on the right. 2. Small complex left hydrocele. 3. Small complex cysts right testicle. Positive testicular blood flow. Nael Scott MD Abdomen/Pelvis CT 12/28/16 1237 Signed Impressions: Service Date/Time: Wednesday, December 28, 2016 14:52 - CONCLUSION: 1. 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 2. Mild bilateral inguinal adenopathy and marked scrotal wall thickening. 3. Fat-containing 5.7 cm umbilical hernia. 4. Atherosclerotic aorta with some displaced intimal calcifications but without significant aneurysm. No bowel obstruction. Mild ileus. Nael Scott MD Objective Remarks GENERAL: 71-year-old male, on vent. SKIN: Warm and dry. HEAD: Normocephalic. EYES: Pupils are 2 mm bilaterally, reactive. NECK: Tracheostomy in place, no bleeding CARDIOVASCULAR: Irreg Irreg. Intermittently paced. RESPIRATORY: large amount of secretions. Scattered rhonchi. GASTROINTESTINAL: Abdomen soft, non-tender, obese. MUSCULOSKELETAL: Currently with trace to 1+ bilateral lower extremity, pitting edema. Foot pulses palpable. NEURO: Moves all 4 extremities spontaneously. Follows commands. 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 Acute toxic metabolic encephalopathy- resolved. Posttraumatic stress disorder, Depression/anxiety Current regimen for agitation: Seroquel 100mg po q8hr. Haldol 5mg iv q4h prn for breakthrough agitation Melatonin 5mg po qhs for sleep Provigil 200mg po daily. Tizanidine 2mg po q12h. Not on home medications for underlying psychiatric diagnosis. Current regimen will be continued as patient is calmer and cooperative on this regimen, he has underlying PTSD CV: Congestive heart failure/systolic ejection fraction 25% 2013 Limited echo EF 35-40% with akinesis apical myocardium History of CABG 4 Hypertension Dyslipidemia History of single-chamber defibrillator 08/19 due to positive EPS study Continue Lipitor 40 mg by mouth daily/home medication for dyslipidemia On Coreg 25 mg q12h. Continue hydralazine 25mg three times a day/Isordil 10 every 8 as adjuvant while creatinine elevated. Holding valsartan Milrinone was discontinued 01/01 due to dysrhythmias Echo 2013 - EF 25-30%. No RWMA. Left atrium dilated. Limited echo 2016 reveals EF 35-40%. Akinesis apical myocardium. Holding Lasix 40 mg daily. Resumed Aldactone today 02/02/17. Check BMP Free water replacement 200 ml q6 Resp: Acute hypoxemic respiratory failure Ongoing tobaccoism Daily SBTs. working on pulmonary strengthening with CPAP as tolerated, with high PS Ventilator bundle. Status post tracheostomy 01/18 Bronchodilator therapy every 4 hours and as needed Secretions worsening-send sputum cx. No Abx Unable to wean off vent, need LTAC GI: Gastroesophageal reflux disease 5.7 cm umbilical hernia Glucerna 1.5 goal 55 cc an hour Pepcid 10 mg twice a day for GI prophylaxis. On Prilosec 20 mg by mouth daily at home Colace/senna twice a day for bowel regimen Levemir bid s/p PEG tube placement 01/31/17. tolerating tube feeds : Becca's gangrene BPH Postop for Becca's gangrene/ necrotizing fasciitis posterior scrotum, perineum and right perirectal tissue Postop washout and debridement for his gangrene Postoperative washout and debridement. 12/28 revealed gas in his perineum/scrotum and the right gluteal cleft. Followed by urology/Dr. Ling Endo: Diabetes mellitus Gout Sliding scale insulin with Accu-Cheks every 6 hours to maintain euglycemia. Levemir 5 BID Holding Tanzeum 50 mg subcutaneous weekly. Holding allopurinol 200 mg by mouth daily for gout Renal: Acute kidney injury-improving Initial CT revealed no signs of hydronephrosis. Urine eosinophils negative. Renal ultrasound revealed no hydronephrosis No indications for hemodialysis at this point. Creat slightly increased and Lasix Aldactone held, now improving. Resumed Aldactone 12.5 mg daily 02/02. Check CMP today Heme: Normocytic anemia Leukocytosis Daily CBC. Monitor trends Transfused 2 units PRBCs during this hospital stay. No current indication for transfusion of blood at this time. ID: Becca's gangrene Group A beta strep UTI Unasyn 1.5 IV every 6 hours stopped 01/16 (switched to Rocephin per ID) Clindamycin 300 mg by mouth every 6 hours completed 01/02 Rocephin 2gm IV daily 01/16, stop date 01/29 Pertinent cultures Sputum 01/14 - Serratia Sputum - 12/31 -no growth Abdomen abscess - 12/28 - Escherichia coli, E faecalis and coag negative staph Abdomen abscess - 12/28 - acid-fast bacilli/fungus negative Blood cultures 2 - 12/28 - no growth Urine culture - 12/28 -group A beta strep Sputum cx 02/02-P Infectious disease signed off abx stopped 01/29 FEN: Hyper-magnesium Hypokalemia - resolved Hypernatremia Replace electrolytes as clinically indicated MSK: PT/OT evaluate and treat Access - Right IJ CVL day placed 12/31 -> d/c - Left radial arterial line day placed 12/31 -> d/c - Left IJ CVL d/c 01/21 Prophylaxis - GI - Pepcid - DVT - SCD/heparin subcutaneous resumed 02/02 (held for PEG) Overall impression: Remains very weak, restricted by chronic poor cardiac function. s/p tracheostomy. Son reasserts full code status for patient. Insurance requires 21 days on vent and 7 days post-trach, 4 days post PEG in order to approve LTAC. Hopefully transfer soon when bed available. No changes today. Roshan Carlos MD February 06, 2017 07:28
[2017-02-06] MEDS: CHLORHEXIDINE 0.12% (ORAL KIT) 15 ML CUP MT SCH (08:00)
[2017-02-06] MEDS: HYDROmorphone HCL PF 1 MG/ML VIAL IV PUSH PRN ×3 (08:10→15:06)
[2017-02-06] MEDS: RESP: BUDESONIDE 0.5 MG/2 ML NEB NEB SCH (08:20)
[2017-02-06] MEDS: RESP: ALBUTEROL 2.5 MG/IPRATROPIUM 0.5 MG NEB (PRN) INH (08:20)
[2017-02-06] MEDS: MODAFINIL 200 MG TAB PO SCH (08:36)
[2017-02-06] MEDS: DOCUSATE SODIUM 100 MG/10 ML UDC G-TUBE SCH (08:36)
[2017-02-06] MEDS: SENNOSIDES SYRUP 8.8 MG/5 ML CUP PO SCH (08:36)
[2017-02-06] MEDS: INSULIN DETEMIR 100 UNITS/ML VIAL SQ SCH (08:36)
[2017-02-06] MEDS: CARVEDILOL 12.5 MG TAB PO SCH (08:36)
[2017-02-06] MEDS: FAMOTIDINE 20 MG TAB PO SCH (08:37)
[2017-02-06] MEDS: SODIUM CHLORIDE 0.9% FLUSH 10 ML FLUSH SCH (08:38)
[2017-02-06] MEDS: ARTIFICIAL TEARS OPTH SOLN 15 ML BTL EACH EYE SCH ×2 (08:38→12:01)
[2017-02-06] MEDS: COLLAGENASE OINT 30 GM TUBE TOPICAL SCH (09:00)
[2017-02-06] MEDS: hydrALAZINE HCL 20 MG/ML VIAL IV PUSH PRN (09:28)
[2017-02-06] MEDS ORDERED: FUROSEMIDE 40 MG/4 ML VIAL IV PUSH SCH (12:00)
--- NOTE | 2017-03-19 11:03 | HHI.DS ---
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 Approximately 10 days ago he was started on Aldactone for his blood pressure which. He also noted that her sugars has been slightly elevated. Denies any fevers. He has been feeling generally weak as well. Denied abdominal pain nausea vomiting or diarrhea. He thought the scrotal swelling was from the Aldactone and came into the emergency department to be evaluated. 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 CARDIOVASCULAR: Regular rate and rhythm without murmurs, gallops, or rubs. RESPIRATORY: diffused exp wheezing with labor breathing. GASTROINTESTINAL: Abdomen soft, non-tender, nondistended. NEURO: lethargic. Transfer Summary He presented December 28 with Becca's gangrene, systolic heart failure, and hypoxemic respiratory failure. Drainage of perineum went well but hospital course was prolonged by heart failure and dependence of mechanical ventilation. He underwent tracheostomy and was transferred to an LTAC for [facility] ventilator weaning. See daily notes. Hospital Course 71-year-old male presents for evaluation of testicular swelling. Approximately 10 days ago he was started on Aldactone for his blood pressure which. He also noted that her sugars has been slightly elevated. Denies any fevers. He has been feeling generally weak as well. Denied abdominal pain nausea vomiting or diarrhea. He thought the scrotal swelling was from the Aldactone and came into the emergency department to be evaluated. 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 remains intubated overnight. off vasopressors. 12/30: Much more comfortable. Back to OR for washout today. Breathing without distress. STEFFEN improving. Patient has dilated cardiomyopathy with severe systolic heart failure and EF 25-30% by last ECHO 2013. May need low-dose inotrope during course of therapy. 12/30 1800 hrs: Seen after OR today. He has full neck veins and light wheezes with basilar crackles. His underlying LV dysfunction requires that we treat this aggressively with diuretics and subsequent electrolyte replacement. Will move back to [facility]. 12/31: Required rapid response for 2nd time in 12 hours. Will need intubation due to severe systolic heart failure and pulmonary edema. 01/01: Afebrile. Remains nothing by mouth for planned washout today. Decreased urine output noted. Hypertensive with sedation vacation. 01/02: Yesterday with washout and debridement without complication. Continues to be in A. fib intermittently rate controlled. Hemodynamically stable. One bowel movement. Will try spontaneous breathing trials today and attempt to extubate. If unsuccessful will initiate tube feeding. 01/03: Tmax 99.2. Episode of desaturation overnight recording FiO2 100%. Currently back to 50%. Chest x-ray essentially stable. Small left pleural effusion. Low lung volumes. Remains in a flutter rate controlled. Imminently bradycardic. 3 bowel movements on 01/02. Tolerating tube feeding. 01/04: FiO2 currently at 50%. We'll check CT chest. Possible need pleural effusions. Remains in a flutter rate control. Intermittently bradycardic. No bowel movement yesterday. Tube feeds currently off for possible extubation but tolerating previously. Afebrile 01/05: Remains on FiO2 of 50%. CT chest revealed small bilateral pleural effusions otherwise unremarkable. Noted is currently rate controlled. No bowel movement. Tube feeds at goal. Afebrile. Intermittently follows commands. 01/06: FiO2 40%. Self extubated yesterday. Lasted about 20 Mr. for requiring intubation. Was on 100 percent nonrebreather. Saturations are 90%. During intubation, Ambu bag malfunctioned. Patient was quickly intubated and was arousable moving all 4 extremities prior to re-sedation. We'll attempt sedation vacation again today. 01/07: Remains ventilator dependent, failed extubation yesterday. Unable to wean today, weak. 01/08: Tolerating CPAP trials but unable to extubate. 01/09: Plan transfer to LTAC. 01/10: Continued improvement in renal function. Contraction alkalosis with diuresis. Will require LTAC. 01/11: Will need to get a fair amount of excess water off. Consider gtt. 01/11: Great response to bumex gtt. 01/13: Continue diuresis. Replete electrolytes. Reduce vent rate. 01/14: Diuresed 10 liters net balance. Replace lytes. Correct HCO3 with diamox. Wean vent. 01/15: Despite aggressive diuresis and clearing of CXR he does not tolerate extended SBTs. He will need a tracheostomy if family wishes to pursue aggressive care. 01/16: Serratia in sputum, afebrile. WBC 5600. CXR benign. 01/17: Needs trach for [facility] weaning. Need to find family to consent. 01/18: Family has consented. Still fails weaning trials. Will perform trach. 01/19: Underwent percutaneous tracheostomy on 01/18. Remains on mechanical ventilation. 01/20: Remains on propofol for agitation. On mechanical ventilation via tracheostomy. Tolerating tube feeds. 01/22: off propofol. much less agitated today, but still some delirium and still CAM +. CPAP trials today. 01/23: more agitated today. very CAM +. still failing CPAP trials for tachycardia and agitation. 01/24: much more improved today. follows commands. less delirious. 01/25: mentation continues to improve. still CAM -. follows commands. OOB to chair today. 01/26: continues to do well. mentation continues to clear. OOB to chair daily. still awaiting placement. still weaning from vent, but slow given deconditioned state. 01/27: Failed SBT due to tachycardia and tachypnea in am, tolerates CPAP with high PS. Following commands. Awaiting placement 01/28: Tachypneic and tachycardic on CPAP, intermittently agitated. Intermittent wheezing on exam. Denied placement by [employer] due to no PEG tube/or definitive feeding tube 01/29: Calmer today, tolerating CPAP with PS 15. CXR shows unchanged pulm edema and LLL consolidation. BUN creat increased from 33/1.1 to 63/1.7 Lasix held. GI unable to get consent for PEG placement at this time 01/30: Resting comfortably on vent. Failed CPAP today. Follows commands. Consent obtained for PEG today. Creat 1.7, stable. UO adequate SUBJECTIVE 01/31/17: Status post PEG tube placement. Sedated from procedural anesthesia. Tolerating CPAP. UO 1.2 L in 24 hours 02/01/17: Tolerating CPAP less agitated. Creatinine is improved, sodium down to 147. Urine output remains adequate 02/02/17: Nighttime RN reports some foul-smelling output from the PEG tube. Also had to be put back on full ventilatory support due to respiratory distress. Chest x-ray improving. Dr. Josemanuel CHAMBERS will be informed about the PEG tube. Keep nothing by mouth for now 02/03: On full vent support. Breathing comfortably. Awaiting transfer to LTAC when bed available. tolerating tube feeds today. 02/04: No material changes. Sputum colonized - no fever or leukocytosis. Ready for LTAC anytime. 02/05: Airway colonized, no fevers. LTAC transfer anytime. 02/06: Moderate anemia, will transfuse. Renal function improving. Ready for LTAC. Pt Condition on Discharge: Stable Discharge Instructions DIET: Follow Instructions for: Full Liquid Diet Roshan Carlos MD Mar 19, 2017 11:03
== END 2017-02-06 15:31 | DRG 3 ==
LOC: NEPA 11:35 → HSDC 16:55 → N03B 20:07 → HSDC 21:15 → N03B 12-29 20:25 → N07A 12-30 15:15 → N03A 12-31 10:44
PROVIDERS: ADMIT Surgery Surgical Critical Care; ATTEND Surgery Surgical Critical Care
PROC: 0T9B70Z Drainage of Bladder with Drainage Device, Via Natural or Artificial Opening (ICD-10-PCS; 2016-12-28)
PROC: 5A1945Z Respiratory Ventilation, 24-96 Consecutive Hours (ICD-10-PCS; 2016-12-28)
PROC: 0JDB3ZZ Extraction of Perineum Subcutaneous Tissue and Fascia, Percutaneous Approach (ICD-10-PCS; 2016-12-30)
PROC: 0JBB0ZZ Excision of Perineum Subcutaneous Tissue and Fascia, Open Approach (ICD-10-PCS; principal; 2016-12-30 12:10)
PROC: 5A1955Z Respiratory Ventilation, Greater than 96 Consecutive Hours (ICD-10-PCS; 2016-12-31)
PROC: 03HY32Z Insertion of Monitoring Device into Upper Artery, Percutaneous Approach (ICD-10-PCS; 2016-12-31)
PROC: 0HB9XZZ Excision of Perineum Skin, External Approach (ICD-10-PCS; 2016-12-31)
PROC: 0BH17EZ Insertion of Endotracheal Airway into Trachea, Via Natural or Artificial Opening (ICD-10-PCS; 2016-12-31)
PROC: 05H533Z Insertion of Infusion Device into Right Subclavian Vein, Percutaneous Approach (ICD-10-PCS; 2016-12-31)
PROC: 4A133B1 Monitoring of Arterial Pressure, Peripheral, Percutaneous Approach (ICD-10-PCS; 2016-12-31)
PROC: 4A133J1 Monitoring of Arterial Pulse, Peripheral, Percutaneous Approach (ICD-10-PCS; 2016-12-31)
PROC: 0JDB3ZZ Extraction of Perineum Subcutaneous Tissue and Fascia, Percutaneous Approach (ICD-10-PCS; 2017-01-01)
PROC: 0BCF8ZZ Extirpation of Matter from Right Lower Lung Lobe, Via Natural or Artificial Opening Endoscopic (ICD-10-PCS; 2017-01-03)
PROC: 0BCJ8ZZ Extirpation of Matter from Left Lower Lung Lobe, Via Natural or Artificial Opening Endoscopic (ICD-10-PCS; 2017-01-03)
PROC: 0BH17EZ Insertion of Endotracheal Airway into Trachea, Via Natural or Artificial Opening (ICD-10-PCS; 2017-01-05)
PROC: 05HN33Z Insertion of Infusion Device into Left Internal Jugular Vein, Percutaneous Approach (ICD-10-PCS; 2017-01-11)
PROC: 0B113F4 Bypass Trachea to Cutaneous with Tracheostomy Device, Percutaneous Approach (ICD-10-PCS; 2017-01-18)
PROC: 0BJ08ZZ Inspection of Tracheobronchial Tree, Via Natural or Artificial Opening Endoscopic (ICD-10-PCS; 2017-01-18)
PROC: 0DH63UZ Insertion of Feeding Device into Stomach, Percutaneous Approach (ICD-10-PCS; 2017-01-31)
PROC: 30233N1 Transfusion of Nonautologous Red Blood Cells into Peripheral Vein, Percutaneous Approach (ICD-10-PCS; 2017-02-06)
DX: A41.9 Sepsis, unspecified organism (principal); N49.3 Fournier gangrene; M72.6 Necrotizing fasciitis; I50.23 Acute on chronic systolic (congestive) heart failure; G92 Toxic encephalopathy; I47.2 Ventricular tachycardia; J18.9 Pneumonia, unspecified organism; I48.91 Unspecified atrial fibrillation; J96.01 Acute respiratory failure with hypoxia; N17.9 Acute kidney failure, unspecified; I42.0 Dilated cardiomyopathy; E87.0 Hyperosmolality and hypernatremia; I48.92 Unspecified atrial flutter; N39.0 Urinary tract infection, site not specified; Z99.11 Dependence on respirator [ventilator] status; E87.3 Alkalosis; G62.9 Polyneuropathy, unspecified; E53.8 Deficiency of other specified B group vitamins; E83.39 Other disorders of phosphorus metabolism; R13.10 Dysphagia, unspecified; E11.22 Type 2 diabetes mellitus with diabetic chronic kidney disease; I13.10 Hypertensive heart and chronic kidney disease without heart failure, with stage 1 through stage 4 chronic kidney disease, or unspecified chronic kidney disease; M10.9 Gout, unspecified; F17.210 Nicotine dependence, cigarettes, uncomplicated; F43.10 Post-traumatic stress disorder, unspecified; Z95.1 Presence of aortocoronary bypass graft; I25.10 Atherosclerotic heart disease of native coronary artery without angina pectoris; I25.2 Old myocardial infarction; N40.0 Benign prostatic hyperplasia without lower urinary tract symptoms; N18.9 Chronic kidney disease, unspecified; F32.9 Major depressive disorder, single episode, unspecified; E78.00 Pure hypercholesterolemia, unspecified; N50.89 Other specified disorders of the male genital organs; E78.5 Hyperlipidemia, unspecified; E66.9 Obesity, unspecified; Z95.5 Presence of coronary angioplasty implant and graft; Z80.42 Family history of malignant neoplasm of prostate; Z95.810 Presence of automatic (implantable) cardiac defibrillator; K42.9 Umbilical hernia without obstruction or gangrene; E11.65 Type 2 diabetes mellitus with hyperglycemia; T17.990A Other foreign object in respiratory tract, part unspecified in causing asphyxiation, initial encounter; X58.XXXA Exposure to other specified factors, initial encounter; Y93.89 Activity, other specified; Y92.239 Unspecified place in hospital as the place of occurrence of the external cause; Y99.9 Unspecified external cause status; R00.1 Bradycardia, unspecified; E87.6 Hypokalemia; K21.9 Gastro-esophageal reflux disease without esophagitis; I70.0 Atherosclerosis of aorta; B95.5 Unspecified streptococcus as the cause of diseases classified elsewhere; Y95 Nosocomial condition; Z86.010 Personal history of colon polyps; Z51.5 Encounter for palliative care; D64.9 Anemia, unspecified; B95.8 Unspecified staphylococcus as the cause of diseases classified elsewhere; B96.20 Unspecified Escherichia coli [E. coli] as the cause of diseases classified elsewhere; Z82.49 Family history of ischemic heart disease and other diseases of the circulatory system; Z81.8 Family history of other mental and behavioral disorders
CPT/HCPCS: 31500; 31600; 31624; 36430; 36556; 36600; 36620; 71010; 71250; 74000; 74176; 76775; 76870; 76937; 80048; 80053; 80162; 81001; 82140; 82550; 82570; 82805; 82948; 83605; 83690; 83735; 83880; 84100; 84132; 84134; 84145; 84300; 84443; 84484; 85007; 85025; 85027; 85610; 85652; 85730; 86140; 86403; 86850; 86900; 86901; 86920; 87015; 87040; 87070; 87077; 87086; 87102; 87106; 87116; 87176; 87185; 87186; 87205; 87206; 87641; 88112; 88304; 88305; 89051; 93005; 93308; 93975; 94002; 94003; 94150; 94640; 94664; 94667; 94668; 96374; A7521; C9399; J0295; J0360; J0690; J0696; J1120; J1160; J1170; J1630; J1644; J1940; J2020; J2060; J2185; J2212; J2250; J2260; J2270; J2370; J2405; J2765; J2920; J2930; J3010; J3370; J3475; J3480; J7030; J7050; J7120; J7613; J7626; P9016; P9045; P9047